=== PATIENT | male | born 1980 | race Two or more races ===

== ENCOUNTER 2018-08-20 12:02 | Inpatient (IN) | payer OTHER ==
[~2018-08-20] VITALS: Ht 167.6 cm; Wt 86.2 kg
[2018-08-20] MEDS ORDERED: OLANZAPINE ODT20 MG PO (12:16)
[2018-08-20] MEDS ORDERED: SAPHRIS10 MG SL (12:16)
[2018-08-20] MEDS ORDERED: CITALOPRAM HBR10 M1 ORAL (12:16)
[2018-08-20 12:43] VITALS: BP 144/80
[2018-08-20] MEDS ORDERED: LORazepam Inj 2mg/ml 1ml IV ONE (13:00)
[2018-08-20 13:19] LABS: ANION GAP 13 mmol/L (5-15); BLOOD UREA NITROGEN 6 mg/dL (7-18); CALCIUM 8.7 MG/DL (8.5-10.1); CARBON DIOXIDE 23 MMOL/L (21-32); CHLORIDE 87 MMOL/L (98-107); CREATININE 0.6 MG/DL (0.55-1.30); POTASSIUM 2.9 MMOL/L (3.5-5.1); SODIUM 122 MMOL/L (136-145)
[2018-08-20 13:20] LABS: HEMOGLOBIN 11.9 G/DL (14.2-18.0); MEAN CORPUSCULAR VOLUME 84 FL (80-99); PLATELET COUNT 439 K/UL (150-450); RED BLOOD COUNT 3.91 M/UL (4.70-6.10); RED CELL DISTRIBUTION WIDTH 10.5 % (11.6-14.8); WHITE BLOOD COUNT 17.3 K/UL (4.8-10.8)
[2018-08-20 13:33] LABS: ALANINE AMINOTRANSFERASE 25 U/L (12-78); ALBUMIN 3.5 G/DL (3.4-5.0); ALKALINE PHOSPHATASE 88 U/L (46-116); ASPARTATE AMINO TRANSFERASE 18 U/L (15-37); BILIRUBIN,TOTAL 0.4 MG/DL (0.2-1.0); CKMB 1.3 NG/ML (0.0-3.6); CREATINE KINASE 161 U/L (26-308)
[2018-08-20] MEDS ORDERED: cefTRIAXone 1 GM in NS 55 ML IV SCH (14:15)
[2018-08-20] MEDS ORDERED: Ketorolac 30mg Inj IV ONE (14:30)
--- NOTE | 2018-08-20 15:31 | Diagnostic Imaging Report ---
Indication: Chest pain Technique: One view of the chest Comparison: none Findings: Lungs and pleural spaces are clear. Heart size is normal. Band of atelectasis seen in the right midlung Impression: No acute process
--- NOTE | 2018-08-20 16:07 | Emergency Room Report ---
History of Present Illness General Chief Complaint: Behavioral Complaint Source: Medical Record (Viviane Carrillo) Present Illness HPI 38-year-old male presents to the emergency department complaining of "be ing shaky, weak, and feeling as though he is going to ". Patient has history of bipolar and schizoaffective disorder and he is currently taking citalopram, olanzapine and Saphris. Patient states that he just began these medications last month. He also reports that he has had some diarrhea and reports having dysuria for almost 2 years. Patient states that he had unprotected intercourse with a prostitute some 2 years ago and has had his symptoms ever since. He denies penile discharge or blood in the urine. Patient reports recently having a cough as well he states he is having 7 out of 10 in severity right sided chest pain. He denies shortness of breath. pt. denies recent travel or fevers.Pt. denies SI/HI, or hallucinations. (Viviane Carrillo) Allergies: Coded Allergies: No Known Allergies (Unverified , 08/20/18) Patient History Past Medical History: see triage record, psych hx - schizoaffective, bipolar Past Surgical History: none Pertinent Family History: none Reviewed Nursing Documentation: PMH: Agreed; PSxH: Agreed (Viviane Carrillo) Nursing Documentation-PMH Past Medical History: No History, Except For History Of Psychiatric Problem: Yes (Viviane Carrillo) Review of Systems All Other Systems: limited - Pt. initially is very focused on not feeling well. (Viviane Carrillo) Physical Exam Vital Signs Date Time Temp Pulse Resp B/P (MAP) Pulse Ox O2 Delivery O2 Flow Rate FiO2 08/20/18 12:12 98.2 105 18 145/81 97 Room Air Sp02 EP Interpretation: reviewed, normal General Appearance: alert, GCS 15, non-toxic, moderate distress Head: normocephalic, atraumatic Eyes: bilateral eye normal inspection, bilateral eye PERRL ENT: hearing grossly normal, normal voice Neck: full range of motion, no bony tend Respiratory: chest non-tender, lungs clear, normal breath sounds, no respiratory distress, no accessory muscle use, no wheezing, speaking full sentences Cardiovascular #1: regular rate, rhythm, no edema, normal capillary refill Gastrointestinal: normal bowel sounds, non tender, soft Musculoskeletal: back normal, gait/station normal, normal range of motion, non- tender Neurologic: alert, oriented x3, responsive, motor strength/tone normal, DTRs symmetric - hyperreflexic, sensory intact, normal gait - Pt. unsteady gait, and collapsed due to weakness , speech normal, grossly normal Psychiatric: judgement/insight normal, no suicidal/homicidal ideation, anxious - pt. moderately anxious Skin: normal color, no rash, well hydrated, diaphoresis (Viviane Carrillo) Medical Decision Making PA Attestation Dr. Leal is my supervising Physician whom patient management has been discussed with. (Viviane Carrillo) Diagnostic Impression: Primary Impression: Hyponatremia Additional Impression: Weakness generalized ER Course 38-year-old male presents to the emergency department complaining of "be ing shaky, weak, and feeling as though he is going to ". Patient has history of bipolar and schizoaffective disorder and he is currently taking citalopram, olanzapine and Saphris. Patient states that he just began these medications last month. He also reports that he has had some diarrhea and reports having dysuria for almost 2 years. Patient states that he had unprotected intercourse with a prostitute some 2 years ago and has had his symptoms ever since. He denies penile discharge or blood in the urine. Patient reports recently having a cough as well he states he is having 7 out of 10 in severity right sided chest pain. He denies shortness of breath. pt. denies recent travel or fevers.Pt. denies SI/HI, or hallucinations. Ddx considered but are not limited to [place], pneumonia, contusion, costochondritis , PE, ACS,EPS, NMS, Shoulder strain, Chest wall contusion. aortic dissection. Vital signs: are WNL, pt. is afebrile H&PE are most consistent with Pt. has hyperreflexia on exam, is diaphoretic, restless ( akanthesia ) and tardrive dyskinesia. ORDERS: - EKG: sinus Tachycardia 121 bpm. -CBC: leukocytosis 17.9 -CMP: hyponatremia and hypokalemia -Urine Sodium: 77 osmolality : 57 -CK & CKMB WNL -Troponin:0.01 CXR: right fissure noted. -Lactic Acid: WNL -Blood cultures: Pending ED INTERVENTIONS: - PT. placed on cardiac monitoring. -1mg Ativan PO - Toradol 20mg IV -10mEq KCL IV x2 ( Dr. Leal wants 3x 10mEq delivered). -IV Rocephin -IV Levaquin DISPOSITION: at this time pt. will be admitted to Dr. Greene for hyponatremia. Dr. Greene agreed to admit the pt. and to continue pt. care management. Labs Test 08/20/18 12:55 08/20/18 13:20 08/20/18 15:25 White Blood Count 17.3 K/UL (4.8-10.8) Red Blood Count 3.91 M/UL (4.70-6.10) Hemoglobin 11.9 G/DL (14.2-18.0) Hematocrit 33.0 % (42.0-52.0) Mean Corpuscular Volume 84 FL (80-99) Mean Corpuscular Hemoglobin 30.4 PG (27.0-31.0) Mean Corpuscular Hemoglobin Concent 36.1 G/DL (32.0-36.0) Red Cell Distribution Width 10.5 % (11.6-14.8) Platelet Count 439 K/UL (150-450) Mean Platelet Volume 5.5 FL (6.5-10.1) Neutrophils (%) (Auto) % (45.0-75.0) Lymphocytes (%) (Auto) % (20.0-45.0) Monocytes (%) (Auto) % (1.0-10.0) Eosinophils (%) (Auto) % (0.0-3.0) Basophils (%) (Auto) % (0.0-2.0) Differential Total Cells Counted 100 Neutrophils % (Manual) 87 % (45-75) Lymphocytes % (Manual) 6 % (20-45) Monocytes % (Manual) 7 % (1-10) Eosinophils % (Manual) 0 % (0-3) Basophils % (Manual) 0 % (0-2) Band Neutrophils 0 % (0-8) Platelet Estimate Adequate Platelet Morphology Normal Sodium Level 122 MMOL/L (136-145) Potassium Level 2.9 MMOL/L (3.5-5.1) Chloride Level 87 MMOL/L (98-107) Carbon Dioxide Level 23 MMOL/L (21-32) Anion Gap 13 mmol/L (5-15) Blood Urea Nitrogen 6 mg/dL (7-18) Creatinine 0.6 MG/DL (0.55-1.30) Estimat Glomerular Filtration Rate > 60 mL/min (>60) Glucose Level 123 MG/DL (74-106) Calcium Level 8.7 MG/DL (8.5-10.1) Total Bilirubin 0.4 MG/DL (0.2-1.0) Aspartate Amino Transf (AST/SGOT) 18 U/L (15-37) Alanine Aminotransferase (ALT/SGPT) 25 U/L (12-78) Alkaline Phosphatase 88 U/L (46-116) Total Creatine Kinase 161 U/L (26-308) Creatine Kinase MB 1.3 NG/ML (0.0-3.6) Creatine Kinase MB Relative Index 0.8 Troponin I 0.017 ng/mL (0.000-0.056) Total Protein 7.0 G/DL (6.4-8.2) Albumin 3.5 G/DL (3.4-5.0) Globulin 3.5 g/dL Albumin/Globulin Ratio 1.0 (1.0-2.7) Salicylates Level 1.3 ug/mL (2.8-20) Acetaminophen Level < 2 MCG/ML (10-30) Serum Alcohol < 3 mg/dL Urine Random Sodium 77 mmol/L (20-110) Urine Opiates Screen Negative (NEGATIVE) Urine Barbiturates Screen Negative (NEGATIVE) Phencyclidine (PCP) Screen Negative (NEGATIVE) Urine Amphetamines Screen Negative (NEGATIVE) Urine Benzodiazepines Screen Negative (NEGATIVE) Urine Cocaine Screen Negative (NEGATIVE) Urine Marijuana (THC) Screen Negative (NEGATIVE) (Viviane Carrillo) ER Course Patient examined by me. I agree with treatment plan and admission. (Zacarias Leal MD) EKG Diagnostic Results EP Interpretation: Dr. Leal Rate: tachycardiac - 121 bpm Rhythm: NSR ST Segments: no acute changes ASA given to the pt in ED: No PA Scribe Text This Interpretation was scribed by MATEO Carrillo. (Viviane Carrillo) Chest X-Ray Diagnostic Results Chest X-Ray Diagnostic Results : Chest X-Ray Ordered: Yes # of Views/Limited/Complete: 1 View Indication: Chest Pain EP Interpretation: Yes PA Xray: Interpretation reviewed, by supervising MD - Dr. Leal, and agrees with findings. Interpretation: no effusion, no pneumothorax, other - Right lower lobe fissure present may be indicative of PNA/ vs. atelectasis. Impression: Other - abnormal Electronically Signed by: Viviane Carrillo PA-C (Viviane Carrillo) Chest X-Ray Diagnostic Results : Electronically Signed by: Lashon documentation reviewed by me and is accurate, Zacarias Leal MD. (Zacarias Leal MD) Last Vital Signs Date Time Temp Pulse Resp B/P (MAP) Pulse Ox O2 Delivery O2 Flow Rate FiO2 08/20/18 12:54 115 18 Room Air 08/20/18 12:43 97.9 144/80 94 (Viviane Carrillo) Disposition: ADMITTED INPATIENT Condition: Serious Referrals: NON PHYSICIAN (PCP) Patient Instructions: Smoking Cessation, Tips for Success, [id number], Hyponatremia, [id number] Viviane Carrillo Aug 20, 2018 16:07 Zacarias Leal MD Aug 26, 2018 06:12
[2018-08-20] MEDS ORDERED: Tylenol #3 tab (300mg/30mg) ORAL PRN (16:45)
[2018-08-20] MEDS ORDERED: LORazepam Inj 2mg/ml 1ml IV PRN (16:45)
[2018-08-20] MEDS: Docusate 100mg cap ORAL SCH (17:45)
[2018-08-20] MEDS: Azithromycin 500 MG in D5W 275 ML IV SCH (18:16)
[2018-08-20 20:00] VITALS: BP 98/58
[2018-08-20] MEDS: ZyPREXA Zydis 10mg tab ORAL SCH ×2 (21:00→21:10)
[2018-08-20] MEDS: Heparin 5000 units/ml inj SUBQ SCH (21:15)
--- NOTE | 2018-08-20 22:00 | Consultation ---
Consult Note Assessment/Plan Nephrology consult dictated #[id number] Paolo Castaneda MD Aug 20, 2018 22:00
--- NOTE | 2018-08-20 22:10 | History and Physical ---
History of Present Illness General Reason for Hospitalization: Behavioral Complaint Present Illness Allergies: Coded Allergies: No Known Allergies (Unverified , 08/20/18) Medication History Scheduled Asenapine Maleate (Saphris), 10 MG SL BID, (Reported) Citalopram Hydrobromide* (Citalopram Hbr*), 30 MG ORAL DAILY, (Reported) Olanzapine (Olanzapine Odt), 20 MG PO BID, (Reported) Patient History Healthcare decision maker Resuscitation status Full Code Advanced Directive on File Physical Exam General Appearance: WD/WN Last 24 Hour Vital Signs Date Time Temp Pulse Resp B/P (MAP) Pulse Ox O2 Delivery O2 Flow Rate FiO2 08/20/18 16:01 97.9 115 18 124/70 94 Room Air 08/20/18 16:00 105 08/20/18 16:00 Room Air 08/20/18 12:54 115 18 Room Air 08/20/18 12:43 97.9 115 18 144/80 94 Room Air 08/20/18 12:12 98.2 105 18 145/81 97 Room Air Laboratory Tests Test 08/20/18 12:55 08/20/18 13:20 08/20/18 15:25 08/20/18 17:02 White Blood Count 17.3 K/UL (4.8-10.8) H Red Blood Count 3.91 M/UL (4.70-6.10) L Hemoglobin 11.9 G/DL (14.2-18.0) L Hematocrit 33.0 % (42.0-52.0) L Mean Corpuscular Volume 84 FL (80-99) Mean Corpuscular Hemoglobin 30.4 PG (27.0-31.0) Mean Corpuscular Hemoglobin Concent 36.1 G/DL (32.0-36.0) H Red Cell Distribution Width 10.5 % (11.6-14.8) L Platelet Count 439 K/UL (150-450) Mean Platelet Volume 5.5 FL (6.5-10.1) L Neutrophils (%) (Auto) % (45.0-75.0) Lymphocytes (%) (Auto) % (20.0-45.0) Monocytes (%) (Auto) % (1.0-10.0) Eosinophils (%) (Auto) % (0.0-3.0) Basophils (%) (Auto) % (0.0-2.0) Differential Total Cells Counted 100 Neutrophils % (Manual) 87 % (45-75) H Lymphocytes % (Manual) 6 % (20-45) L Monocytes % (Manual) 7 % (1-10) Eosinophils % (Manual) 0 % (0-3) Basophils % (Manual) 0 % (0-2) Band Neutrophils 0 % (0-8) Platelet Estimate Adequate Platelet Morphology Normal Sodium Level 122 MMOL/L (136-145) L Potassium Level 2.9 MMOL/L (3.5-5.1) L Chloride Level 87 MMOL/L (98-107) L Carbon Dioxide Level 23 MMOL/L (21-32) Anion Gap 13 mmol/L (5-15) Blood Urea Nitrogen 6 mg/dL (7-18) L Creatinine 0.6 MG/DL (0.55-1.30) Estimat Glomerular Filtration Rate > 60 mL/min (>60) Glucose Level 123 MG/DL (74-106) H Osmolality 249 mOsm/kg (297-317) L Uric Acid 4.1 MG/DL (2.6-7.2) Calcium Level 8.7 MG/DL (8.5-10.1) Total Bilirubin 0.4 MG/DL (0.2-1.0) Aspartate Amino Transf (AST/SGOT) 18 U/L (15-37) Alanine Aminotransferase (ALT/SGPT) 25 U/L (12-78) Alkaline Phosphatase 88 U/L (46-116) Total Creatine Kinase 161 U/L (26-308) Creatine Kinase MB 1.3 NG/ML (0.0-3.6) Creatine Kinase MB Relative Index 0.8 Troponin I 0.017 ng/mL (0.000-0.056) Total Protein 7.0 G/DL (6.4-8.2) Albumin 3.5 G/DL (3.4-5.0) Globulin 3.5 g/dL Albumin/Globulin Ratio 1.0 (1.0-2.7) Salicylates Level 1.3 ug/mL (2.8-20) L Acetaminophen Level < 2 MCG/ML (10-30) L Serum Alcohol < 3 mg/dL Urine Random Sodium 77 mmol/L (20-110) Urine Opiates Screen Negative (NEGATIVE) Urine Barbiturates Screen Negative (NEGATIVE) Phencyclidine (PCP) Screen Negative (NEGATIVE) Urine Amphetamines Screen Negative (NEGATIVE) Urine Benzodiazepines Screen Negative (NEGATIVE) Urine Cocaine Screen Negative (NEGATIVE) Urine Marijuana (THC) Screen Negative (NEGATIVE) Lactic Acid Level 1.70 mmol/L (0.4-2.0) Urine Osmolality 57 mOsm/kg (429-449) L Height (Feet): 5 Height (Inches): 6.00 Weight (Pounds): 190 Medications Current Medications Medications (Trade) Dose Ordered Sig/Yohannes Route PRN Reason Start Time Stop Time Status Last Admin Dose Admin Acetaminophen (Tylenol) 650 mg Q6H PRN ORAL Mild Pain/Temp > 100.5 08/20/18 16:45 09/19/18 16:44 Acetaminophen/ Codeine Phosphate (Tylenol #3) 1 tab Q6H PRN ORAL Pain Scale (6-10) 08/20/18 16:45 08/27/18 16:44 Azithromycin 500 mg/Dextrose 275 ml @ 275 mls/hr Q24HRS IV 08/20/18 18:00 08/26/18 18:59 08/20/18 18:16 Ceftriaxone Sodium 1 gm/ Dextrose 55 ml @ 110 mls/hr Q24H IVPB 08/21/18 14:00 08/28/18 13:59 Citalopram Hydrobromide (celeXA) 30 mg DAILY ORAL 08/21/18 09:00 09/20/18 08:59 Docusate Sodium (Colace) 100 mg TWICE A DAY ORAL 08/20/18 18:00 09/19/18 17:59 08/20/18 17:45 Heparin Sodium (Porcine) (Heparin 5000 units/ml) 5,000 units EVERY 12 HOURS SUBQ 08/20/18 21:00 09/19/18 20:59 08/20/18 21:15 Levofloxacin 150 ml @ 150 mls/hr Q24H IV 08/20/18 14:15 08/20/18 23:59 08/20/18 14:35 Lorazepam (Ativan 2mg/ml 1ml) 0.5 mg Q4H PRN IV For Anxiety 08/20/18 16:45 08/27/18 16:44 Non-Formulary Medication (Non-Formulary Med) 1 ea DAILY ORAL 08/21/18 09:00 11/26/18 08:59 UNV Olanzapine (ZyPREXA Zydis) 20 mg Q12HR ORAL 08/20/18 21:00 09/19/18 20:59 Ondansetron HCl (Zofran) 4 mg Q8H PRN IVP Nausea & Vomiting 08/20/18 17:00 09/19/18 16:59 Sodium Chloride 1,000 ml @ 75 mls/hr [id number] IV 08/20/18 17:30 09/19/18 17:29 08/20/18 17:25 Assessment/Plan Status Narrative HPI 38-year-old male presents to the emergency department complaining of "be ing shaky, weak, and feeling as though he is going to ". Patient has history of bipolar and schizoaffective disorder and he is currently taking citalopram, olanzapine and Saphris. Patient states that he just began these medications last month. He also reports that he has had some diarrhea and reports having dysuria for almost 2 years. Patient states that he had unprotected intercourse with a prostitute some 2 years ago and has had his symptoms ever since. He denies penile discharge or blood in the urine. Patient reports recently having a cough as well he states he is having 7 out of 10 in severity right sided chest pain. He denies shortness of breath. pt. denies recent travel or fevers.Pt. denies SI/HI, or hallucinations. Allergies: Coded Allergies: No Known Allergies (Unverified , 08/20/18) Nursing Documentation-[facility] Past Medical History: No History, Except For History Of Psychiatric Problem: Yes Physical Exam Vital Signs Date Time Temp Pulse Resp B/P (MAP) Pulse Ox O2 Delivery O2 Flow Rate FiO2 08/20/18 12:12 98.2 105 18 145/81 97 Room Air Medical Decision Making PA Attestation Dr. Leal is my supervising Physician whom patient management has been discussed with. Diagnostic Impression: Primary Impression: Hyponatremia ER Course 38-year-old male presents to the emergency department complaining of "be ing shaky, weak, and feeling as though he is going to ". Patient has history of bipolar and schizoaffective disorder and he is currently taking citalopram, olanzapine and Saphris. Patient states that he just began these medications last month. He also reports that he has had some diarrhea and reports having dysuria for almost 2 years. Patient states that he had unprotected intercourse with a prostitute some 2 years ago and has had his symptoms ever since. He denies penile discharge or blood in the urine. Patient reports recently having a cough as well he states he is having 7 out of 10 in severity right sided chest pain. He denies shortness of breath. pt. denies recent travel or fevers.Pt. denies SI/HI, or hallucinations. Pt. presents to the ED c/o [ ] Ddx considered but are not limited to [place], pneumonia, contusion, costochondritis , PE, ACS, Shoulder strain, Chest wall contusion. aortic dissection. Vital signs: are WNL, pt. is afebrile H&PE are most consistent with Pt. has hyperreflexia on exam, is diaphoretic, restless ( akanthesia ) and tardrive dyskinesia. ORDERS: - EKG: -CBC: leukocytosis 17.9 -CMP: hyponatremia and hypokalemia -Urine Sodium: -CK: -Troponin: CXR: -Lactic Acid -Blood cultures: Pending Labs Test 08/20/18 12:55 08/20/18 13:20 08/20/18 15:25 White Blood Count 17.3 K/UL (4.8-10.8) Red Blood Count 3.91 M/UL (4.70-6.10) Hemoglobin 11.9 G/DL (14.2-18.0) Hematocrit 33.0 % (42.0-52.0) Mean Corpuscular Volume 84 FL (80-99) Mean Corpuscular Hemoglobin 30.4 PG (27.0-31.0) Mean Corpuscular Hemoglobin Concent 36.1 G/DL (32.0-36.0) Red Cell Distribution Width 10.5 % (11.6-14.8) Platelet Count 439 K/UL (150-450) Mean Platelet Volume 5.5 FL (6.5-10.1) Neutrophils (%) (Auto) % (45.0-75.0) Lymphocytes (%) (Auto) % (20.0-45.0) Monocytes (%) (Auto) % (1.0-10.0) Eosinophils (%) (Auto) % (0.0-3.0) Basophils (%) (Auto) % (0.0-2.0) Differential Total Cells Counted 100 Neutrophils % (Manual) 87 % (45-75) Lymphocytes % (Manual) 6 % (20-45) Monocytes % (Manual) 7 % (1-10) Eosinophils % (Manual) 0 % (0-3) Basophils % (Manual) 0 % (0-2) Band Neutrophils 0 % (0-8) Platelet Estimate Adequate Platelet Morphology Normal Sodium Level 122 MMOL/L (136-145) Potassium Level 2.9 MMOL/L (3.5-5.1) Chloride Level 87 MMOL/L (98-107) Carbon Dioxide Level 23 MMOL/L (21-32) Anion Gap 13 mmol/L (5-15) Blood Urea Nitrogen 6 mg/dL (7-18) Creatinine 0.6 MG/DL (0.55-1.30) Estimat Glomerular Filtration Rate > 60 mL/min (>60) Glucose Level 123 MG/DL (74-106) Calcium Level 8.7 MG/DL (8.5-10.1) Total Bilirubin 0.4 MG/DL (0.2-1.0) Aspartate Amino Transf (AST/SGOT) 18 U/L (15-37) Alanine Aminotransferase (ALT/SGPT) 25 U/L (12-78) Alkaline Phosphatase 88 U/L (46-116) Total Creatine Kinase 161 U/L (26-308) Creatine Kinase MB 1.3 NG/ML (0.0-3.6) Creatine Kinase MB Relative Index 0.8 Troponin I 0.017 ng/mL (0.000-0.056) Total Protein 7.0 G/DL (6.4-8.2) Albumin 3.5 G/DL (3.4-5.0) Globulin 3.5 g/dL Albumin/Globulin Ratio 1.0 (1.0-2.7) Salicylates Level 1.3 ug/mL (2.8-20) Acetaminophen Level < 2 MCG/ML (10-30) Serum Alcohol < 3 mg/dL Urine Random Sodium 77 mmol/L (20-110) Urine Opiates Screen Negative (NEGATIVE) Urine Barbiturates Screen Negative (NEGATIVE) Phencyclidine (PCP) Screen Negative (NEGATIVE) Urine Amphetamines Screen Negative (NEGATIVE) Urine Benzodiazepines Screen Negative (NEGATIVE) Urine Cocaine Screen Negative (NEGATIVE) Urine Marijuana (THC) Screen Negative (NEGATIVE) Assessment/Plan Admit inpatient Renal Consult IV Saline Fluid restrict [employer] meds PPX PRN Zacarias Cruz MD Aug 20, 2018 22:10
[2018-08-21] VITALS: BP 98/57
--- NOTE | 2018-08-21 00:15 | Consultation ---
DATE OF CONSULTATION: 08/20/2018 Nephrology Consult CONSULTING PHYSICIAN: Paolo Castaneda M.D. REFERRING PHYSICIAN: Dr. Dilshad Greene. REASON FOR CONSULT: Hyponatremia. HISTORY OF PRESENT ILLNESS: This is a very pleasant 38-year-old male, who has been brought to the emergency room of [facility] and has been admitted with a complaint of being shaky, weak, feeling that he is going to , was found to have serum sodium of 122. Apparently, he has a history of bipolar and schizoaffective disorder for which he is on antipsychotic medications. He has had some diarrhea recently. He has been started on normal saline at 75 mL/hour. By the time I am seeing him, he is very lethargic. However, he is able to be aroused and answer some of the questions. His serum osmolality was 249 and urine osmolality was 57. Urine sodium was 77 and serum uric acid was 4.1. He does not seem to be in any distress. PAST MEDICAL HISTORY: Significant for psychiatric disorder mainly bipolar as well as schizoaffective disorder. PAST SURGICAL HISTORY: Unknown. I am not able to get a fruitful history out of him. SOCIAL HISTORY: He is not able to give me a very fruitful history. FAMILY HISTORY: Unknown. MEDICATIONS: Saphris 10 mg sublingual twice a day, citalopram 30 mg p.o. daily, and olanzapine 20 mg p.o. b.i.d. REVIEW OF SYSTEMS: Not able to be performed since he is not able to give me a very fruitful history. He is very lethargic at this point. PHYSICAL EXAMINATION: VITAL SIGNS: Blood pressure is 145/81, pulse of 105, respiration 18, and temperature 98.2. HEENT: Head is atraumatic. Eyes, pupils reactive to light. No evidence of papilledema. Ears, canals are clear. Tympanic membranes are intact. Nose, nares are patent without any nasal discharge. Throat without inflammation or exudate. NECK: Supple. Jugular venous distention is somewhat low. No cervical adenopathy. No thyromegaly. HEART: Regular rhythm, tachycardic. LUNGS: Clear to auscultation. ABDOMEN: Supple. Bowel sounds positive. No hepatosplenomegaly. EXTREMITIES: Lower extremity shows no cyanosis or clubbing. No pedal edema. NEUROLOGICAL: He is very lethargic. He is moving all 4 extremities. Does not seem to have any focal neurological deficits present. LABORATORY DATA: WBC of 17.3, hemoglobin is 11.9, hematocrit 33, platelets 439, 87% neutrophils, and 6% lymphocytes. Sodium is 122, potassium 2.9, chloride 87, carbon dioxide 23, BUN is 6, and creatinine 0.6. IMPRESSION: 1. 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 2. Hypokalemia. 3. Psychiatric disorder. Some antipsychotic medications causing some ____ and decreasing his threshold ____ hyponatremia. 4. No signs of fluid overload. 5. He has leukocytosis with some questionable underlying sepsis of questionable etiology. PLAN: He has been started on normal saline, which I agree ____ to have his free water limited to less than a liter a day. Replete the potassium. I agree with IV antibiotics empirically and we will recheck the serum sodium serially. Paolo Castaneda M.D. DR: ROMARIO JOB#: [id number] CC:
[2018-08-21 01:06] LABS: BILIRUBIN, URINE NEGATIVE (NEGATIVE); COLOR,URINE PALE YELLOW; GLUCOSE, URINE (UA) NEGATIVE (NEGATIVE); KETONES,URINE NEGATIVE (NEGATIVE); LEUKOCYTE ESTERASE ,URINE NEGATIVE (NEGATIVE); NITRITE,URINE NEGATIVE (NEGATIVE); PH,URINE 7 (4.5-8.0); PROTEIN,URINE NEGATIVE (NEGATIVE); UROBILINOGEN,URINE NORMAL MG/DL (0.0-1.0)
[2018-08-21 01:07] LABS: APPEARANCE,URINE CLEAR
[2018-08-21 04:00] VITALS: BP 92/53
[2018-08-21 08:00] VITALS: BP 103/62
[2018-08-21 08:27] LABS: BASOPHILS % (AUTO) 1.1 % (0.0-2.0); EOSINOPHILS % (AUTO) 0.5 % (0.0-3.0); HEMATOCRIT 36.6 % (42.0-52.0); HEMOGLOBIN 12.7 G/DL (14.2-18.0); LYMPHOCYTES % (AUTO) 32.2 % (20.0-45.0); MEAN CORPUSCULAR VOLUME 85 FL (80-99); MONOCYTES % (AUTO) 8.1 % (1.0-10.0); NEUTROPHILS % (AUTO) 58.1 % (45.0-75.0); PLATELET COUNT 489 K/UL (150-450); RED CELL DISTRIBUTION WIDTH 10.7 % (11.6-14.8); WHITE BLOOD COUNT 4.3 K/UL (4.8-10.8)
[2018-08-21] MEDS: ZyPREXA Zydis 10mg tab ORAL SCH ×2 (08:57→21:23)
[2018-08-21] MEDS: Citalopram Hydrobromide 10mg Tab ORAL SCH (08:58)
[2018-08-21] MEDS: Docusate 100mg cap ORAL SCH ×2 (08:58→17:06)
[2018-08-21] MEDS: Heparin 5000 units/ml inj SUBQ SCH ×2 (08:59→21:22)
[2018-08-21 09:26] LABS: ALANINE AMINOTRANSFERASE 23 U/L (12-78); ALBUMIN 3.1 G/DL (3.4-5.0); ALBUMIN/GLOBULIN RATIO 0.9 (1.0-2.7); ALKALINE PHOSPHATASE 85 U/L (46-116); ANION GAP 10 mmol/L (5-15); ASPARTATE AMINO TRANSFERASE 16 U/L (15-37); BILIRUBIN,TOTAL 0.4 MG/DL (0.2-1.0); BLOOD UREA NITROGEN 6 mg/dL (7-18); CALCIUM 8.9 MG/DL (8.5-10.1); CARBON DIOXIDE 25 MMOL/L (21-32); CHLORIDE 108 MMOL/L (98-107); CREATININE 0.7 MG/DL (0.55-1.30); POTASSIUM 3.7 MMOL/L (3.5-5.1); SODIUM 143 MMOL/L (136-145)
[2018-08-21 12:00] VITALS: BP 94/54
[2018-08-21] MEDS: cefTRIAXone 1 GM in D5W 55 ML IVPB SCH (14:05)
[2018-08-21] MEDS ORDERED: Vancomycin 1.5gm/D5W 250ml 250 ML IVPB SCH (14:45)
[2018-08-21] MEDS ORDERED: Tubing IV Secondary IV ONE (15:10)
[2018-08-21 16:00] VITALS: BP 116/69
[2018-08-21] MEDS: Azithromycin 500 MG in D5W 275 ML IV SCH (17:08)
--- NOTE | 2018-08-21 17:44 | Pulmonology Progress Note ---
Assessment/Plan Assessment/Plan PULMONARY PROGRESS NOTE Reason for Hospitalization: Behavioral Complaint Present Illness Allergies: Coded Allergies: No Known Allergies (Unverified , 08/20/18) Medication History Scheduled Asenapine Maleate (Saphris), 10 MG SL BID, (Reported) Citalopram Hydrobromide* (Citalopram Hbr*), 30 MG ORAL DAILY, (Reported) Olanzapine (Olanzapine Odt), 20 MG PO BID, (Reported) Patient History Healthcare decision maker Resuscitation status Full Code Advanced Directive on File Physical Exam General Appearance: WD/WN Last 24 Hour Vital Signs Date Time Temp Pulse Resp B/P (MAP) Pulse Ox O2 Delivery O2 Flow Rate FiO2 08/20/18 16:01 97.9 115 18 124/70 94 Room Air 08/20/18 16:00 105 08/20/18 16:00 Room Air 08/20/18 12:54 115 18 Room Air 08/20/18 12:43 97.9 115 18 144/80 94 Room Air 08/20/18 12:12 98.2 105 18 145/81 97 Room Air Laboratory Tests Test 08/20/18 12:55 08/20/18 13:20 08/20/18 15:25 08/20/18 17:02 White Blood Count 17.3 K/UL (4.8-10.8) H Red Blood Count 3.91 M/UL (4.70-6.10) L Hemoglobin 11.9 G/DL (14.2-18.0) L Hematocrit 33.0 % (42.0-52.0) L Mean Corpuscular Volume 84 FL (80-99) Mean Corpuscular Hemoglobin 30.4 PG (27.0-31.0) Mean Corpuscular Hemoglobin Concent 36.1 G/DL (32.0-36.0) H Red Cell Distribution Width 10.5 % (11.6-14.8) L Platelet Count 439 K/UL (150-450) Mean Platelet Volume 5.5 FL (6.5-10.1) L Neutrophils (%) (Auto) % (45.0-75.0) Lymphocytes (%) (Auto) % (20.0-45.0) Monocytes (%) (Auto) % (1.0-10.0) Eosinophils (%) (Auto) % (0.0-3.0) Basophils (%) (Auto) % (0.0-2.0) Differential Total Cells Counted 100 Neutrophils % (Manual) 87 % (45-75) H Lymphocytes % (Manual) 6 % (20-45) L Monocytes % (Manual) 7 % (1-10) Eosinophils % (Manual) 0 % (0-3) Basophils % (Manual) 0 % (0-2) Band Neutrophils 0 % (0-8) Platelet Estimate Adequate Platelet Morphology Normal Sodium Level 122 MMOL/L (136-145) L Potassium Level 2.9 MMOL/L (3.5-5.1) L Chloride Level 87 MMOL/L (98-107) L Carbon Dioxide Level 23 MMOL/L (21-32) Anion Gap 13 mmol/L (5-15) Blood Urea Nitrogen 6 mg/dL (7-18) L Creatinine 0.6 MG/DL (0.55-1.30) Estimat Glomerular Filtration Rate > 60 mL/min (>60) Glucose Level 123 MG/DL (74-106) H Osmolality 249 mOsm/kg (297-317) L Uric Acid 4.1 MG/DL (2.6-7.2) Calcium Level 8.7 MG/DL (8.5-10.1) Total Bilirubin 0.4 MG/DL (0.2-1.0) Aspartate Amino Transf (AST/SGOT) 18 U/L (15-37) Alanine Aminotransferase (ALT/SGPT) 25 U/L (12-78) Alkaline Phosphatase 88 U/L (46-116) Total Creatine Kinase 161 U/L (26-308) Creatine Kinase MB 1.3 NG/ML (0.0-3.6) Creatine Kinase MB Relative Index 0.8 Troponin I 0.017 ng/mL (0.000-0.056) Total Protein 7.0 G/DL (6.4-8.2) Albumin 3.5 G/DL (3.4-5.0) Globulin 3.5 g/dL Albumin/Globulin Ratio 1.0 (1.0-2.7) Salicylates Level 1.3 ug/mL (2.8-20) L Acetaminophen Level < 2 MCG/ML (10-30) L Serum Alcohol < 3 mg/dL Urine Random Sodium 77 mmol/L (20-110) Urine Opiates Screen Negative (NEGATIVE) Urine Barbiturates Screen Negative (NEGATIVE) Phencyclidine (PCP) Screen Negative (NEGATIVE) Urine Amphetamines Screen Negative (NEGATIVE) Urine Benzodiazepines Screen Negative (NEGATIVE) Urine Cocaine Screen Negative (NEGATIVE) Urine Marijuana (THC) Screen Negative (NEGATIVE) Lactic Acid Level 1.70 mmol/L (0.4-2.0) Urine Osmolality 57 mOsm/kg (429-449) L Height (Feet): 5 Height (Inches): 6.00 Weight (Pounds): 190 Medications Current Medications Medications (Trade) Dose Ordered Sig/Yohannes Route PRN Reason Start Time Stop Time Status Last Admin Dose Admin Acetaminophen (Tylenol) 650 mg Q6H PRN ORAL Mild Pain/Temp > 100.5 08/20/18 16:45 09/19/18 16:44 Acetaminophen/ Codeine Phosphate (Tylenol #3) 1 tab Q6H PRN ORAL Pain Scale (6-10) 08/20/18 16:45 08/27/18 16:44 Azithromycin 500 mg/Dextrose 275 ml @ 275 mls/hr Q24HRS IV 08/20/18 18:00 08/26/18 18:59 08/20/18 18:16 Ceftriaxone Sodium 1 gm/ Dextrose 55 ml @ 110 mls/hr Q24H IVPB 08/21/18 14:00 08/28/18 13:59 Citalopram Hydrobromide (celeXA) 30 mg DAILY ORAL 08/21/18 09:00 09/20/18 08:59 Docusate Sodium (Colace) 100 mg TWICE A DAY ORAL 08/20/18 18:00 09/19/18 17:59 08/20/18 17:45 Heparin Sodium (Porcine) (Heparin 5000 units/ml) 5,000 units EVERY 12 HOURS SUBQ 08/20/18 21:00 09/19/18 20:59 08/20/18 21:15 Levofloxacin 150 ml @ 150 mls/hr Q24H IV 08/20/18 14:15 08/20/18 23:59 08/20/18 14:35 Lorazepam (Ativan 2mg/ml 1ml) 0.5 mg Q4H PRN IV For Anxiety 08/20/18 16:45 08/27/18 16:44 Non-Formulary Medication (Non-Formulary Med) 1 ea DAILY ORAL 08/21/18 09:00 09/20/18 08:59 UNV Olanzapine (ZyPREXA Zydis) 20 mg Q12HR ORAL 08/20/18 21:00 09/19/18 20:59 Ondansetron HCl (Zofran) 4 mg Q8H PRN IVP Nausea & Vomiting 08/20/18 17:00 09/19/18 16:59 Sodium Chloride 1,000 ml @ 75 mls/hr [id number] IV 08/20/18 17:30 09/19/18 17:29 08/20/18 17:25 Assessment/Plan Status Narrative HPI 38-year-old male presents to the emergency department complaining of "be ing shaky, weak, and feeling as though he is going to ". Patient has history of bipolar and schizoaffective disorder and he is currently taking citalopram, olanzapine and Saphris. Patient states that he just began these medications last month. He also reports that he has had some diarrhea and reports having dysuria for almost 2 years. Patient states that he had unprotected intercourse with a prostitute some 2 years ago and has had his symptoms ever since. He denies penile discharge or blood in the urine. Patient reports recently having a cough as well he states he is having 7 out of 10 in severity right sided chest pain. He denies shortness of breath. pt. denies recent travel or fevers.Pt. denies SI/HI, or hallucinations. Allergies: Coded Allergies: No Known Allergies (Unverified , 08/20/18) Nursing Documentation-[facility] Past Medical History: No History, Except For History Of Psychiatric Problem: Yes Physical Exam Vital Signs Date Time Temp Pulse Resp B/P (MAP) Pulse Ox O2 Delivery O2 Flow Rate FiO2 08/20/18 12:12 98.2 105 18 145/81 97 Room Air Medical Decision Making PA Attestation Dr. Leal is my supervising Physician whom patient management has been discussed with. Diagnostic Impression: Primary Impression: Hyponatremia ER Course 38-year-old male presents to the emergency department complaining of "be ing shaky, weak, and feeling as though he is going to ". Patient has history of bipolar and schizoaffective disorder and he is currently taking citalopram, olanzapine and Saphris. Patient states that he just began these medications last month. He also reports that he has had some diarrhea and reports having dysuria for almost 2 years. Patient states that he had unprotected intercourse with a prostitute some 2 years ago and has had his symptoms ever since. He denies penile discharge or blood in the urine. Patient reports recently having a cough as well he states he is having 7 out of 10 in severity right sided chest pain. He denies shortness of breath. pt. denies recent travel or fevers.Pt. denies SI/HI, or hallucinations. Pt. presents to the ED c/o [ ] Ddx considered but are not limited to PA, pneumonia, contusion, costochondritis , PE, ACS, Shoulder strain, Chest wall contusion. aortic dissection. Vital signs: are WNL, pt. is afebrile H&PE are most consistent with Pt. has hyperreflexia on exam, is diaphoretic, restless ( akanthesia ) and tardrive dyskinesia. ORDERS: - EKG: -CBC: leukocytosis 17.9 -CMP: hyponatremia and hypokalemia -Urine Sodium: -CK: -Troponin: CXR: -Lactic Acid -Blood cultures: Pending Labs Test 08/20/18 12:55 08/20/18 13:20 08/20/18 15:25 White Blood Count 17.3 K/UL (4.8-10.8) Red Blood Count 3.91 M/UL (4.70-6.10) Hemoglobin 11.9 G/DL (14.2-18.0) Hematocrit 33.0 % (42.0-52.0) Mean Corpuscular Volume 84 FL (80-99) Mean Corpuscular Hemoglobin 30.4 PG (27.0-31.0) Mean Corpuscular Hemoglobin Concent 36.1 G/DL (32.0-36.0) Red Cell Distribution Width 10.5 % (11.6-14.8) Platelet Count 439 K/UL (150-450) Mean Platelet Volume 5.5 FL (6.5-10.1) Neutrophils (%) (Auto) % (45.0-75.0) Lymphocytes (%) (Auto) % (20.0-45.0) Monocytes (%) (Auto) % (1.0-10.0) Eosinophils (%) (Auto) % (0.0-3.0) Basophils (%) (Auto) % (0.0-2.0) Differential Total Cells Counted 100 Neutrophils % (Manual) 87 % (45-75) Lymphocytes % (Manual) 6 % (20-45) Monocytes % (Manual) 7 % (1-10) Eosinophils % (Manual) 0 % (0-3) Basophils % (Manual) 0 % (0-2) Band Neutrophils 0 % (0-8) Platelet Estimate Adequate Platelet Morphology Normal Sodium Level 122 MMOL/L (136-145) Potassium Level 2.9 MMOL/L (3.5-5.1) Chloride Level 87 MMOL/L (98-107) Carbon Dioxide Level 23 MMOL/L (21-32) Anion Gap 13 mmol/L (5-15) Blood Urea Nitrogen 6 mg/dL (7-18) Creatinine 0.6 MG/DL (0.55-1.30) Estimat Glomerular Filtration Rate > 60 mL/min (>60) Glucose Level 123 MG/DL (74-106) Calcium Level 8.7 MG/DL (8.5-10.1) Total Bilirubin 0.4 MG/DL (0.2-1.0) Aspartate Amino Transf (AST/SGOT) 18 U/L (15-37) Alanine Aminotransferase (ALT/SGPT) 25 U/L (12-78) Alkaline Phosphatase 88 U/L (46-116) Total Creatine Kinase 161 U/L (26-308) Creatine Kinase MB 1.3 NG/ML (0.0-3.6) Creatine Kinase MB Relative Index 0.8 Troponin I 0.017 ng/mL (0.000-0.056) Total Protein 7.0 G/DL (6.4-8.2) Albumin 3.5 G/DL (3.4-5.0) Globulin 3.5 g/dL Albumin/Globulin Ratio 1.0 (1.0-2.7) Salicylates Level 1.3 ug/mL (2.8-20) Acetaminophen Level < 2 MCG/ML (10-30) Serum Alcohol < 3 mg/dL Urine Random Sodium 77 mmol/L (20-110) Urine Opiates Screen Negative (NEGATIVE) Urine Barbiturates Screen Negative (NEGATIVE) Phencyclidine (PCP) Screen Negative (NEGATIVE) Urine Amphetamines Screen Negative (NEGATIVE) Urine Benzodiazepines Screen Negative (NEGATIVE) Urine Cocaine Screen Negative (NEGATIVE) Urine Marijuana (THC) Screen Negative (NEGATIVE) Assessment/Plan Admit inpatient Renal Consult DC IV Saline Fluid restrict DIRECTOR INDEPENDENT meds PPX PRN Ativan Subjective ROS Limited/Unobtainable: No Allergies: Coded Allergies: No Known Allergies (Unverified , 08/20/18) Objective Last 24 Hour Vital Signs Date Time Temp Pulse Resp B/P (MAP) Pulse Ox O2 Delivery O2 Flow Rate FiO2 08/21/18 16:00 98.7 77 20 116/69 (85) 97 08/21/18 12:00 99.2 91 21 94/54 (67) 96 08/21/18 12:00 85 08/21/18 09:00 Room Air 08/21/18 08:00 98.4 96 22 103/62 (76) 96 08/21/18 08:00 102 08/21/18 04:00 74 08/21/18 04:00 98.3 78 20 92/53 (66) 95 08/21/18 00:00 73 08/21/18 00:00 98.2 73 20 98/57 (71) 97 08/20/18 21:00 Room Air 08/20/18 20:00 98.3 85 20 98/58 (71) 96 08/20/18 20:00 94 Intake and Output 08/20/18 08/21/18 19:00 07:00 Intake Total 293 ml 350 ml Output Total 1000 ml 2000 ml Balance -707 ml -1650 ml Intake IV Total 293 ml 350 ml Output Urine Total 1000 ml 2000 ml # Voids 1 2 Microbiology Date/Time Source Procedure Growth Status 08/20/18 15:25 Blood Blood Culture - Preliminary Gram Positive Cocci Resulted Laboratory Tests 08/21/18 01:00: Urine Color Pale yellow, Urine Appearance Clear, Urine pH 7, Urine Specific [place] 1.005, Urine Protein Negative, Urine Glucose (UA) Negative, Urine Ketones Negative, Urine Blood Negative, Urine Nitrite Negative, Urine Bilirubin Negative, Urine Urobilinogen Normal, Urine Leukocyte Esterase Negative 08/21/18 07:50: White Blood Count 4.3#L, Red Blood Count 4.30L, Hemoglobin 12.7L, Hematocrit 36.6L, Mean Corpuscular Volume 85, Mean Corpuscular Hemoglobin 29.7, Mean Corpuscular Hemoglobin Concent 34.8, Red Cell Distribution Width 10.7L, Platelet Count 489H, Mean Platelet Volume 5.5L, Neutrophils (%) (Auto) 58.1, Lymphocytes (%) (Auto) 32.2, Monocytes (%) (Auto) 8.1, Eosinophils (%) (Auto) 0.5, Basophils (%) (Auto) 1.1, Sodium Level 143#, Potassium Level 3.7, Chloride Level 108H, Carbon Dioxide Level 25, Anion Gap 10, Blood Urea Nitrogen 6L, Creatinine 0.7, Estimat Glomerular Filtration Rate > 60, Glucose Level 123H, Calcium Level 8.9, Total Bilirubin 0.4, Aspartate Amino Transf (AST/SGOT) 16, Alanine Aminotransferase (ALT/SGPT) 23, Alkaline Phosphatase 85, Total Protein 6.7, Albumin 3.1L, Globulin 3.6, Albumin/Globulin Ratio 0.9L, Thyroid Stimulating Hormone (TSH) 0.543 08/21/18 09:10: HIV (1&2) Antibody Rapid Negative Current Medications Medications (Trade) Dose Ordered Sig/Yohannes Route PRN Reason Start Time Stop Time Status Last Admin Dose Admin Acetaminophen (Tylenol) 650 mg Q6H PRN ORAL Mild Pain/Temp > 100.5 08/20/18 16:45 09/19/18 16:44 Acetaminophen/ Codeine Phosphate (Tylenol #3) 1 tab Q6H PRN ORAL Pain Scale (6-10) 08/20/18 16:45 08/27/18 16:44 Azithromycin 500 mg/Dextrose 275 ml @ 275 mls/hr Q24HRS IV 08/20/18 18:00 08/26/18 18:59 08/21/18 17:08 Ceftriaxone Sodium 1 gm/ Dextrose 55 ml @ 110 mls/hr Q24H IVPB 08/21/18 14:00 08/28/18 13:59 08/21/18 14:05 Citalopram Hydrobromide (celeXA) 30 mg DAILY ORAL 08/21/18 09:00 09/20/18 08:59 08/21/18 08:58 Docusate Sodium (Colace) 100 mg TWICE A DAY ORAL 08/20/18 18:00 09/19/18 17:59 08/21/18 17:06 Heparin Sodium (Porcine) (Heparin 5000 units/ml) 5,000 units EVERY 12 HOURS SUBQ 08/20/18 21:00 09/19/18 20:59 08/21/18 08:59 Lorazepam (Ativan 2mg/ml 1ml) 0.5 mg Q4H PRN IV For Anxiety 08/20/18 16:45 08/27/18 16:44 Metronidazole 100 ml @ 100 mls/hr Q8HR IVPB 08/21/18 14:00 08/28/18 13:59 08/21/18 14:05 Non-Formulary Medication (Non-Formulary Med) 1 ea DAILY ORAL 08/21/18 09:00 09/20/18 08:59 UNV Olanzapine (ZyPREXA Zydis) 20 mg Q12HR ORAL 08/20/18 21:00 09/19/18 20:59 08/21/18 08:57 Ondansetron HCl (Zofran) 4 mg Q8H PRN IVP Nausea & Vomiting 08/20/18 17:00 09/19/18 16:59 Potassium Chloride 100 ml @ 100 mls/hr Q1H IVPB 08/21/18 16:00 08/21/18 17:59 08/21/18 17:07 Vancomycin HCl (Vanco rx to dose) 1 ea DAILY PRN MISC Per rx protocol 08/21/18 12:45 09/20/18 12:44 Vancomycin HCl 1 gm/Dextrose 275 ml @ 183.708 mls/hr Q8H IVPB 08/22/18 00:00 08/27/18 00:00 Zacarias Treviño MD Aug 21, 2018 17:44
[2018-08-21 20:00] VITALS: BP 99/59
[2018-08-21] MEDS: SAPHRIS 10 MG SL SCH (21:23)
--- NOTE | 2018-08-21 22:34 | Nephrology Progress Note ---
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 2) Clinically euvolemic 3) Schizoaffective Plan: Agree with stopping IV fluid Mobilize him Subjective Subjective He is more alert, still feeling weak, NA is up to 143, no c/p or sob Objective Objective Last 24 Hour Vital Signs Date Time Temp Pulse Resp B/P (MAP) Pulse Ox O2 Delivery O2 Flow Rate FiO2 08/21/18 21:00 Room Air 08/21/18 20:00 98.1 72 18 99/59 (72) 94 08/21/18 20:00 79 08/21/18 16:00 98.7 77 20 116/69 (85) 97 08/21/18 16:00 77 08/21/18 12:00 99.2 91 21 94/54 (67) 96 08/21/18 12:00 85 08/21/18 09:00 Room Air 08/21/18 08:00 98.4 96 22 103/62 (76) 96 08/21/18 08:00 102 08/21/18 04:00 74 08/21/18 04:00 98.3 78 20 92/53 (66) 95 08/21/18 00:00 73 08/21/18 00:00 98.2 73 20 98/57 (71) 97 Intake and Output 08/20/18 08/21/18 19:00 07:00 Intake Total 293 ml 350 ml Output Total 1000 ml 2000 ml Balance -707 ml -1650 ml IV Total 293 ml 350 ml Output Urine Total 1000 ml 2000 ml # Voids 1 2 Laboratory Tests 08/21/18 01:00: Urine Color Pale yellow, Urine Appearance Clear, Urine pH 7, Urine Specific [place] 1.005, Urine Protein Negative, Urine Glucose (UA) Negative, Urine Ketones Negative, Urine Blood Negative, Urine Nitrite Negative, Urine Bilirubin Negative, Urine Urobilinogen Normal, Urine Leukocyte Esterase Negative 08/21/18 07:50: White Blood Count 4.3#L, Red Blood Count 4.30L, Hemoglobin 12.7L, Hematocrit 36.6L, Mean Corpuscular Volume 85, Mean Corpuscular Hemoglobin 29.7, Mean Corpuscular Hemoglobin Concent 34.8, Red Cell Distribution Width 10.7L, Platelet Count 489H, Mean Platelet Volume 5.5L, Neutrophils (%) (Auto) 58.1, Lymphocytes (%) (Auto) 32.2, Monocytes (%) (Auto) 8.1, Eosinophils (%) (Auto) 0.5, Basophils (%) (Auto) 1.1, Sodium Level 143#, Potassium Level 3.7, Chloride Level 108H, Carbon Dioxide Level 25, Anion Gap 10, Blood Urea Nitrogen 6L, Creatinine 0.7, Estimat Glomerular Filtration Rate > 60, Glucose Level 123H, Calcium Level 8.9, Total Bilirubin 0.4, Aspartate Amino Transf (AST/SGOT) 16, Alanine Aminotransferase (ALT/SGPT) 23, Alkaline Phosphatase 85, Total Protein 6.7, Albumin 3.1L, Globulin 3.6, Albumin/Globulin Ratio 0.9L, Thyroid Stimulating Hormone (TSH) 0.543 08/21/18 09:10: HIV (1&2) Antibody Rapid Negative Height (Feet): 5 Height (Inches): 6.00 Weight (Pounds): 190 General Appearance: WD/WN, no apparent distress EENT: PERRL/EOMI Neck: non-tender, normal alignment Cardiovascular: normal rate Respiratory/Chest: chest wall non-tender, lungs clear Abdomen: normal bowel sounds, non tender 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
[2018-08-22] VITALS: BP 104/65
[2018-08-22] MEDS: Vancomycin 1gm/D5W 275ml IVPB SCH ×4 (00:37→08:30)
[2018-08-22 04:00] VITALS: BP 110/70
[2018-08-22 07:09] LABS: BASOPHILS % (AUTO) 1.4 % (0.0-2.0); HEMATOCRIT 37.1 % (42.0-52.0); HEMOGLOBIN 12.9 G/DL (14.2-18.0); LYMPHOCYTES % (AUTO) 26.5 % (20.0-45.0); MEAN CORPUSCULAR VOLUME 86 FL (80-99); MONOCYTES % (AUTO) 7.9 % (1.0-10.0); NEUTROPHILS % (AUTO) 61.2 % (45.0-75.0); PLATELET COUNT 473 K/UL (150-450); RED BLOOD COUNT 4.31 M/UL (4.70-6.10); RED CELL DISTRIBUTION WIDTH 11.4 % (11.6-14.8)
[2018-08-22 07:17] LABS: ANION GAP 5 mmol/L (5-15); BLOOD UREA NITROGEN 8 mg/dL (7-18); CALCIUM 9.3 MG/DL (8.5-10.1); CARBON DIOXIDE 27 MMOL/L (21-32); CHLORIDE 107 MMOL/L (98-107); CREATININE 0.8 MG/DL (0.55-1.30); POTASSIUM 3.8 MMOL/L (3.5-5.1); SODIUM 139 MMOL/L (136-145)
[2018-08-22 08:00] VITALS: BP 116/70
[2018-08-22] MEDS: Citalopram Hydrobromide 10mg Tab ORAL SCH (08:31)
[2018-08-22] MEDS: Docusate 100mg cap ORAL SCH ×2 (08:31→17:50)
[2018-08-22] MEDS: ZyPREXA Zydis 10mg tab ORAL SCH ×2 (08:31→21:28)
[2018-08-22] MEDS: SAPHRIS 10 MG SL SCH ×2 (08:31→21:29)
[2018-08-22] MEDS: Heparin 5000 units/ml inj SUBQ SCH ×2 (08:32→21:29)
--- NOTE | 2018-08-22 11:58 | Nephrology Progress Note ---
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 2) Clinically euvolemic 3) Schizoaffective 4) Some LE neuropathy, R/O Guillain [place] Plan: Mobilize him Subjective Subjective He is more alert, still feeling weak, some numbness in the legs Objective Objective Last 24 Hour Vital Signs Date Time Temp Pulse Resp B/P (MAP) Pulse Ox O2 Delivery O2 Flow Rate FiO2 08/22/18 08:00 94 08/22/18 08:00 98.0 81 19 116/70 (85) 98 08/22/18 04:00 66 08/22/18 04:00 98.2 80 20 110/70 (83) 98 08/22/18 00:00 98.1 67 18 104/65 (78) 96 08/22/18 00:00 63 08/21/18 21:00 Room Air 08/21/18 20:00 98.1 72 18 99/59 (72) 94 08/21/18 20:00 79 08/21/18 16:00 98.7 77 20 116/69 (85) 97 08/21/18 16:00 77 08/21/18 12:00 99.2 91 21 94/54 (67) 96 08/21/18 12:00 85 Intake and Output 08/21/18 08/22/18 19:00 07:00 Intake Total 2245 ml 575 ml Output Total 1375 ml Balance 2245 ml -800 ml Intake Oral 750 ml 200 ml IV Total 1495 ml 375 ml Output Urine Total 1375 ml # Bowel Movements 1 Laboratory Tests 08/22/18 06:30: White Blood Count 6.0, Red Blood Count 4.31L, Hemoglobin 12.9L, Hematocrit 37.1L , Mean Corpuscular Volume 86, Mean Corpuscular Hemoglobin 29.9, Mean Corpuscular Hemoglobin Concent 34.8, Red Cell Distribution Width 11.4L, Platelet Count 473H, Mean Platelet Volume 5.5L, Neutrophils (%) (Auto) 61.2, Lymphocytes (%) (Auto) 26.5, Monocytes (%) (Auto) 7.9, Eosinophils (%) (Auto) 3.0, Basophils (%) (Auto) 1.4, Sodium Level 139, Potassium Level 3.8, Chloride Level 107, Carbon Dioxide Level 27, Anion Gap 5, Blood Urea Nitrogen 8, Creatinine 0.8, Estimat Glomerular Filtration Rate > 60, Glucose Level 91, Calcium Level 9.3 Height (Feet): 5 Height (Inches): 6.00 Weight (Pounds): 190 General Appearance: WD/WN, no apparent distress, alert EENT: PERRL/EOMI, normal ENT inspection Neck: normal alignment, supple Cardiovascular: normal rate, regular rhythm, no JVD Respiratory/Chest: lungs clear Neurologic: touch up painter II-XII grossly normal, other - DR's absent in Lower extremities Paolo Castaneda MD Aug 22, 2018 11:58
[2018-08-22 12:00] VITALS: BP 103/57
[2018-08-22] MEDS: cefTRIAXone 1 GM in D5W 55 ML IVPB SCH (13:30)
[2018-08-22 16:00] VITALS: BP 109/53
[2018-08-22] MEDS ORDERED: Vancomycin 1250mg/D5W 250ml 250 ML IVPB SCH (17:30)
[2018-08-22] MEDS ORDERED: Tubing IV Secondary IV ONE (17:34)
--- NOTE | 2018-08-22 17:41 | Pulmonology Progress Note ---
Assessment/Plan Assessment/Plan PULMONARY PROGRESS NOTE Reason for Hospitalization: Behavioral Complaint Present Illness Allergies: Coded Allergies: No Known Allergies (Unverified , 08/20/18) Medication History Scheduled Asenapine Maleate (Saphris), 10 MG SL BID, (Reported) Citalopram Hydrobromide* (Citalopram Hbr*), 30 MG ORAL DAILY, (Reported) Olanzapine (Olanzapine Odt), 20 MG PO BID, (Reported) Patient History Healthcare decision maker Resuscitation status Full Code Advanced Directive on File Physical Exam General Appearance: WD/WN Last 24 Hour Vital Signs Date Time Temp Pulse Resp B/P (MAP) Pulse Ox O2 Delivery O2 Flow Rate FiO2 08/20/18 16:01 97.9 115 18 124/70 94 Room Air 08/20/18 16:00 105 08/20/18 16:00 Room Air 08/20/18 12:54 115 18 Room Air 08/20/18 12:43 97.9 115 18 144/80 94 Room Air 08/20/18 12:12 98.2 105 18 145/81 97 Room Air Laboratory Tests Test 08/20/18 12:55 08/20/18 13:20 08/20/18 15:25 08/20/18 17:02 White Blood Count 17.3 K/UL (4.8-10.8) H Red Blood Count 3.91 M/UL (4.70-6.10) L Hemoglobin 11.9 G/DL (14.2-18.0) L Hematocrit 33.0 % (42.0-52.0) L Mean Corpuscular Volume 84 FL (80-99) Mean Corpuscular Hemoglobin 30.4 PG (27.0-31.0) Mean Corpuscular Hemoglobin Concent 36.1 G/DL (32.0-36.0) H Red Cell Distribution Width 10.5 % (11.6-14.8) L Platelet Count 439 K/UL (150-450) Mean Platelet Volume 5.5 FL (6.5-10.1) L Neutrophils (%) (Auto) % (45.0-75.0) Lymphocytes (%) (Auto) % (20.0-45.0) Monocytes (%) (Auto) % (1.0-10.0) Eosinophils (%) (Auto) % (0.0-3.0) Basophils (%) (Auto) % (0.0-2.0) Differential Total Cells Counted 100 Neutrophils % (Manual) 87 % (45-75) H Lymphocytes % (Manual) 6 % (20-45) L Monocytes % (Manual) 7 % (1-10) Eosinophils % (Manual) 0 % (0-3) Basophils % (Manual) 0 % (0-2) Band Neutrophils 0 % (0-8) Platelet Estimate Adequate Platelet Morphology Normal Sodium Level 122 MMOL/L (136-145) L Potassium Level 2.9 MMOL/L (3.5-5.1) L Chloride Level 87 MMOL/L (98-107) L Carbon Dioxide Level 23 MMOL/L (21-32) Anion Gap 13 mmol/L (5-15) Blood Urea Nitrogen 6 mg/dL (7-18) L Creatinine 0.6 MG/DL (0.55-1.30) Estimat Glomerular Filtration Rate > 60 mL/min (>60) Glucose Level 123 MG/DL (74-106) H Osmolality 249 mOsm/kg (297-317) L Uric Acid 4.1 MG/DL (2.6-7.2) Calcium Level 8.7 MG/DL (8.5-10.1) Total Bilirubin 0.4 MG/DL (0.2-1.0) Aspartate Amino Transf (AST/SGOT) 18 U/L (15-37) Alanine Aminotransferase (ALT/SGPT) 25 U/L (12-78) Alkaline Phosphatase 88 U/L (46-116) Total Creatine Kinase 161 U/L (26-308) Creatine Kinase MB 1.3 NG/ML (0.0-3.6) Creatine Kinase MB Relative Index 0.8 Troponin I 0.017 ng/mL (0.000-0.056) Total Protein 7.0 G/DL (6.4-8.2) Albumin 3.5 G/DL (3.4-5.0) Globulin 3.5 g/dL Albumin/Globulin Ratio 1.0 (1.0-2.7) Salicylates Level 1.3 ug/mL (2.8-20) L Acetaminophen Level < 2 MCG/ML (10-30) L Serum Alcohol < 3 mg/dL Urine Random Sodium 77 mmol/L (20-110) Urine Opiates Screen Negative (NEGATIVE) Urine Barbiturates Screen Negative (NEGATIVE) Phencyclidine (PCP) Screen Negative (NEGATIVE) Urine Amphetamines Screen Negative (NEGATIVE) Urine Benzodiazepines Screen Negative (NEGATIVE) Urine Cocaine Screen Negative (NEGATIVE) Urine Marijuana (THC) Screen Negative (NEGATIVE) Lactic Acid Level 1.70 mmol/L (0.4-2.0) Urine Osmolality 57 mOsm/kg (429-449) L Height (Feet): 5 Height (Inches): 6.00 Weight (Pounds): 190 Medications Current Medications Medications (Trade) Dose Ordered Sig/Yohannes Route PRN Reason Start Time Stop Time Status Last Admin Dose Admin Acetaminophen (Tylenol) 650 mg Q6H PRN ORAL Mild Pain/Temp > 100.5 08/20/18 16:45 09/19/18 16:44 Acetaminophen/ Codeine Phosphate (Tylenol #3) 1 tab Q6H PRN ORAL Pain Scale (6-10) 08/20/18 16:45 08/27/18 16:44 Azithromycin 500 mg/Dextrose 275 ml @ 275 mls/hr Q24HRS IV 08/20/18 18:00 08/26/18 18:59 08/20/18 18:16 Ceftriaxone Sodium 1 gm/ Dextrose 55 ml @ 110 mls/hr Q24H IVPB 08/21/18 14:00 08/28/18 13:59 Citalopram Hydrobromide (celeXA) 30 mg DAILY ORAL 08/21/18 09:00 09/20/18 08:59 Docusate Sodium (Colace) 100 mg TWICE A DAY ORAL 08/20/18 18:00 09/19/18 17:59 08/20/18 17:45 Heparin Sodium (Porcine) (Heparin 5000 units/ml) 5,000 units EVERY 12 HOURS SUBQ 08/20/18 21:00 09/19/18 20:59 08/20/18 21:15 Levofloxacin 150 ml @ 150 mls/hr Q24H IV 08/20/18 14:15 08/20/18 23:59 08/20/18 14:35 Lorazepam (Ativan 2mg/ml 1ml) 0.5 mg Q4H PRN IV For Anxiety 08/20/18 16:45 08/27/18 16:44 Non-Formulary Medication (Non-Formulary Med) 1 ea DAILY ORAL 08/21/18 09:00 09/20/18 08:59 UNV Olanzapine (ZyPREXA Zydis) 20 mg Q12HR ORAL 08/20/18 21:00 09/19/18 20:59 Ondansetron HCl (Zofran) 4 mg Q8H PRN IVP Nausea & Vomiting 08/20/18 17:00 09/19/18 16:59 Sodium Chloride 1,000 ml @ 75 mls/hr [id number] IV 08/20/18 17:30 09/19/18 17:29 08/20/18 17:25 Assessment/Plan Status Narrative HPI 38-year-old male presents to the emergency department complaining of "be ing shaky, weak, and feeling as though he is going to ". Patient has history of bipolar and schizoaffective disorder and he is currently taking citalopram, olanzapine and Saphris. Patient states that he just began these medications last month. He also reports that he has had some diarrhea and reports having dysuria for almost 2 years. Patient states that he had unprotected intercourse with a prostitute some 2 years ago and has had his symptoms ever since. He denies penile discharge or blood in the urine. Patient reports recently having a cough as well he states he is having 7 out of 10 in severity right sided chest pain. He denies shortness of breath. pt. denies recent travel or fevers.Pt. denies SI/HI, or hallucinations. Allergies: Coded Allergies: No Known Allergies (Unverified , 08/20/18) Nursing Documentation-[facility] Past Medical History: No History, Except For History Of Psychiatric Problem: Yes Physical Exam Vital Signs Date Time Temp Pulse Resp B/P (MAP) Pulse Ox O2 Delivery O2 Flow Rate FiO2 08/20/18 12:12 98.2 105 18 145/81 97 Room Air Medical Decision Making PA Attestation Dr. Leal is my supervising Physician whom patient management has been discussed with. Diagnostic Impression: Primary Impression: Hyponatremia ER Course 38-year-old male presents to the emergency department complaining of "be ing shaky, weak, and feeling as though he is going to ". Patient has history of bipolar and schizoaffective disorder and he is currently taking citalopram, olanzapine and Saphris. Patient states that he just began these medications last month. He also reports that he has had some diarrhea and reports having dysuria for almost 2 years. Patient states that he had unprotected intercourse with a prostitute some 2 years ago and has had his symptoms ever since. He denies penile discharge or blood in the urine. Patient reports recently having a cough as well he states he is having 7 out of 10 in severity right sided chest pain. He denies shortness of breath. pt. denies recent travel or fevers.Pt. denies SI/HI, or hallucinations. Pt. presents to the ED c/o [ ] Ddx considered but are not limited to VA, pneumonia, contusion, costochondritis , PE, ACS, Shoulder strain, Chest wall contusion. aortic dissection. Vital signs: are WNL, pt. is afebrile H&PE are most consistent with Pt. has hyperreflexia on exam, is diaphoretic, restless ( akanthesia ) and tardrive dyskinesia. ORDERS: - EKG: -CBC: leukocytosis 17.9 -CMP: hyponatremia and hypokalemia -Urine Sodium: -CK: -Troponin: CXR: -Lactic Acid -Blood cultures: Pending Labs Test 08/20/18 12:55 08/20/18 13:20 08/20/18 15:25 White Blood Count 17.3 K/UL (4.8-10.8) Red Blood Count 3.91 M/UL (4.70-6.10) Hemoglobin 11.9 G/DL (14.2-18.0) Hematocrit 33.0 % (42.0-52.0) Mean Corpuscular Volume 84 FL (80-99) Mean Corpuscular Hemoglobin 30.4 PG (27.0-31.0) Mean Corpuscular Hemoglobin Concent 36.1 G/DL (32.0-36.0) Red Cell Distribution Width 10.5 % (11.6-14.8) Platelet Count 439 K/UL (150-450) Mean Platelet Volume 5.5 FL (6.5-10.1) Neutrophils (%) (Auto) % (45.0-75.0) Lymphocytes (%) (Auto) % (20.0-45.0) Monocytes (%) (Auto) % (1.0-10.0) Eosinophils (%) (Auto) % (0.0-3.0) Basophils (%) (Auto) % (0.0-2.0) Differential Total Cells Counted 100 Neutrophils % (Manual) 87 % (45-75) Lymphocytes % (Manual) 6 % (20-45) Monocytes % (Manual) 7 % (1-10) Eosinophils % (Manual) 0 % (0-3) Basophils % (Manual) 0 % (0-2) Band Neutrophils 0 % (0-8) Platelet Estimate Adequate Platelet Morphology Normal Sodium Level 122 MMOL/L (136-145) Potassium Level 2.9 MMOL/L (3.5-5.1) Chloride Level 87 MMOL/L (98-107) Carbon Dioxide Level 23 MMOL/L (21-32) Anion Gap 13 mmol/L (5-15) Blood Urea Nitrogen 6 mg/dL (7-18) Creatinine 0.6 MG/DL (0.55-1.30) Estimat Glomerular Filtration Rate > 60 mL/min (>60) Glucose Level 123 MG/DL (74-106) Calcium Level 8.7 MG/DL (8.5-10.1) Total Bilirubin 0.4 MG/DL (0.2-1.0) Aspartate Amino Transf (AST/SGOT) 18 U/L (15-37) Alanine Aminotransferase (ALT/SGPT) 25 U/L (12-78) Alkaline Phosphatase 88 U/L (46-116) Total Creatine Kinase 161 U/L (26-308) Creatine Kinase MB 1.3 NG/ML (0.0-3.6) Creatine Kinase MB Relative Index 0.8 Troponin I 0.017 ng/mL (0.000-0.056) Total Protein 7.0 G/DL (6.4-8.2) Albumin 3.5 G/DL (3.4-5.0) Globulin 3.5 g/dL Albumin/Globulin Ratio 1.0 (1.0-2.7) Salicylates Level 1.3 ug/mL (2.8-20) Acetaminophen Level < 2 MCG/ML (10-30) Serum Alcohol < 3 mg/dL Urine Random Sodium 77 mmol/L (20-110) Urine Opiates Screen Negative (NEGATIVE) Urine Barbiturates Screen Negative (NEGATIVE) Phencyclidine (PCP) Screen Negative (NEGATIVE) Urine Amphetamines Screen Negative (NEGATIVE) Urine Benzodiazepines Screen Negative (NEGATIVE) Urine Cocaine Screen Negative (NEGATIVE) Urine Marijuana (THC) Screen Negative (NEGATIVE) Assessment/Plan Admit inpatient Renal Consult DC IV Saline Fluid restrict DIRECTOR OF PULMONARY UNIT meds PPX PRN Ativan Subjective ROS Limited/Unobtainable: No Allergies: Coded Allergies: No Known Allergies (Unverified , 08/20/18) Objective Last 24 Hour Vital Signs Date Time Temp Pulse Resp B/P (MAP) Pulse Ox O2 Delivery O2 Flow Rate FiO2 08/22/18 16:00 98.5 81 20 109/53 (71) 97 08/22/18 12:00 99.6 88 21 103/57 (72) 97 08/22/18 12:00 84 08/22/18 09:00 Room Air 08/22/18 08:00 94 08/22/18 08:00 98.0 81 19 116/70 (85) 98 08/22/18 04:00 66 08/22/18 04:00 98.2 80 20 110/70 (83) 98 08/22/18 00:00 98.1 67 18 104/65 (78) 96 08/22/18 00:00 63 08/21/18 21:00 Room Air 08/21/18 20:00 98.1 72 18 99/59 (72) 94 08/21/18 20:00 79 Intake and Output 08/21/18 08/22/18 18:59 06:59 Intake Total 2320 ml 575 ml Output Total 1375 ml Balance 2320 ml -800 ml Intake Oral 750 ml 200 ml IV Total 1570 ml 375 ml Output Urine Total 1375 ml # Bowel Movements 1 Microbiology Date/Time Source Procedure Growth Status 08/20/18 15:25 Blood Blood Culture - Preliminary Gram Positive Cocci Resulted 08/20/18 15:25 Blood Blood Culture - Preliminary NO GROWTH AFTER 24 HOURS Resulted Laboratory Tests 08/22/18 06:30: White Blood Count 6.0, Red Blood Count 4.31L, Hemoglobin 12.9L, Hematocrit 37.1L , Mean Corpuscular Volume 86, Mean Corpuscular Hemoglobin 29.9, Mean Corpuscular Hemoglobin Concent 34.8, Red Cell Distribution Width 11.4L, Platelet Count 473H, Mean Platelet Volume 5.5L, Neutrophils (%) (Auto) 61.2, Lymphocytes (%) (Auto) 26.5, Monocytes (%) (Auto) 7.9, Eosinophils (%) (Auto) 3.0, Basophils (%) (Auto) 1.4, Sodium Level 139, Potassium Level 3.8, Chloride Level 107, Carbon Dioxide Level 27, Anion Gap 5, Blood Urea Nitrogen 8, Creatinine 0.8, Estimat Glomerular Filtration Rate > 60, Glucose Level 91, Calcium Level 9.3 08/22/18 15:00: Vancomycin Level Trough 11.5 Current Medications Medications (Trade) Dose Ordered Sig/Yohannes Route PRN Reason Start Time Stop Time Status Last Admin Dose Admin Acetaminophen (Tylenol) 650 mg Q6H PRN ORAL Mild Pain/Temp > 100.5 08/20/18 16:45 09/19/18 16:44 Acetaminophen/ Codeine Phosphate (Tylenol #3) 1 tab Q6H PRN ORAL Pain Scale (6-10) 08/20/18 16:45 08/27/18 16:44 Azithromycin 500 mg/Dextrose 275 ml @ 275 mls/hr Q24HRS IV 08/20/18 18:00 08/26/18 18:59 08/21/18 17:08 Ceftriaxone Sodium 1 gm/ Dextrose 55 ml @ 110 mls/hr Q24H IVPB 08/21/18 14:00 08/28/18 13:59 08/22/18 13:30 Citalopram Hydrobromide (celeXA) 30 mg DAILY ORAL 08/21/18 09:00 09/20/18 08:59 08/22/18 08:31 Docusate Sodium (Colace) 100 mg TWICE A DAY ORAL 08/20/18 18:00 09/19/18 17:59 08/22/18 08:31 Heparin Sodium (Porcine) (Heparin 5000 units/ml) 5,000 units EVERY 12 HOURS SUBQ 08/20/18 21:00 09/19/18 20:59 08/22/18 08:32 Lorazepam (Ativan 2mg/ml 1ml) 0.5 mg Q4H PRN IV For Anxiety 08/20/18 16:45 08/27/18 16:44 Metronidazole 100 ml @ 100 mls/hr Q8HR IVPB 08/21/18 14:00 08/28/18 13:59 08/22/18 14:44 Olanzapine (ZyPREXA Zydis) 20 mg Q12HR ORAL 08/20/18 21:00 09/19/18 20:59 08/22/18 08:31 Ondansetron HCl (Zofran) 4 mg Q8H PRN IVP Nausea & Vomiting 08/20/18 17:00 09/19/18 16:59 Patient Own Medication (Patient's Own Med) 1 ea Q12HR SL 08/21/18 21:00 09/20/18 20:59 08/22/18 08:31 Vancomycin HCl (Vanco rx to dose) 1 ea DAILY PRN MISC Per rx protocol 08/21/18 12:45 09/20/18 12:44 Vancomycin HCl/ Dextrose 250 ml @ 166.667 mls/hr Q8H IVPB 08/22/18 17:30 08/27/18 17:29 Zacarias Treviño MD Aug 22, 2018 17:41
[2018-08-22] MEDS: Azithromycin 500 MG in D5W 275 ML IV SCH (17:50)
[2018-08-22 20:00] VITALS: BP 103/60
[2018-08-23] VITALS: BP 96/64
[2018-08-23] MEDS ORDERED: LORazepam Inj 2mg/ml 1ml IV PRN (00:45)
[2018-08-23] MEDS: Vancomycin 1250mg/D5W 250ml 250 ML IVPB SCH ×3 (01:00→17:37)
[2018-08-23 04:00] VITALS: BP 106/65
[2018-08-23] MEDS ORDERED: Tylenol #3 tab (300mg/30mg) ORAL PRN (04:45)
[2018-08-23 08:00] VITALS: BP 111/73
--- NOTE | 2018-08-23 08:35 | General Progress Note ---
Assessment/Plan Assessment/Plan BAD hyponatremia BCX + PLAN iv antibiotics id evaluation renal noted dc planning pending final sensitivity Subjective Allergies: Coded Allergies: No Known Allergies (Unverified , 08/20/18) Subjective care noted on antibiotics Objective Last 24 Hour Vital Signs Date Time Temp Pulse Resp B/P (MAP) Pulse Ox O2 Delivery O2 Flow Rate FiO2 08/23/18 04:00 97.9 75 18 106/65 (79) 96 08/23/18 00:00 97.8 66 18 96/64 (75) 96 08/22/18 21:00 Room Air 08/22/18 20:00 97.6 86 18 103/60 (74) 97 08/22/18 16:00 76 08/22/18 16:00 98.5 81 20 109/53 (71) 97 08/22/18 12:00 99.6 88 21 103/57 (72) 97 08/22/18 12:00 84 08/22/18 09:00 Room Air Intake and Output 08/22/18 08/23/18 19:00 07:00 Intake Total 1239.997 ml 785.003 ml Output Total 1200 ml 600 ml Balance 39.997 ml 185.003 ml Intake Oral 260 ml 360 ml IV Total 979.997 ml 425.003 ml Output Urine Total 1200 ml 600 ml # Voids 1 # Bowel Movements 1 Laboratory Tests 08/22/18 15:00: Vancomycin Level Trough 11.5 Height (Feet): 5 Height (Inches): 6.00 Weight (Pounds): 190 Objective WDWN NAD clear breath sounds bilaterally without rhonchi or wheeze [id number] without MRG NABS nontender no HSM no CCE nonfocal confused Dilshad Greene MD Aug 23, 2018 08:35
[2018-08-23] MEDS: ZyPREXA Zydis 10mg tab ORAL SCH ×2 (09:22→20:35)
[2018-08-23] MEDS: Docusate 100mg cap ORAL SCH ×2 (09:22→17:37)
[2018-08-23] MEDS: Citalopram Hydrobromide 10mg Tab ORAL SCH (09:22)
[2018-08-23] MEDS: SAPHRIS 10 MG SL SCH ×2 (09:23→20:35)
[2018-08-23] MEDS: Heparin 5000 units/ml inj SUBQ SCH ×2 (09:31→20:39)
[2018-08-23 12:00] VITALS: BP 112/70
[2018-08-23] MEDS ORDERED: cefTRIAXone 1 GM in D5W 55 ML IVPB SCH (14:00)
[2018-08-23] MEDS ORDERED: Tubing IV Secondary IV ONE (14:48)
[2018-08-23 16:00] VITALS: BP 98/64
[2018-08-23] MEDS ORDERED: Azithromycin 500 MG in D5W 275 ML IV SCH (18:00)
--- NOTE | 2018-08-23 19:30 | Consultation ---
DATE OF CONSULTATION: 08/23/2018 INFECTIOUS DISEASES CONSULTATION CONSULTING PHYSICIAN: Caleb Sweeney M.D. REFERRING PHYSICIAN: Dilshad Greene M.D. REASON FOR CONSULTATION: Fever. HISTORY OF PRESENTING ILLNESS: This is a 38-year-old gentleman with history of bipolar disorder and schizoaffective disorder, felt like he was going to . He had fever and chills along with cough and shortness of breath. An Infectious Diseases consultation has been obtained for antibiotics. PAST MEDICAL HISTORY: 1. History of bipolar disorder. 2. History of schizoaffective disorder. SOCIAL HISTORY: He is a smoker. He used to drink alcohol. He does not drink any more. No history of drug use. FAMILY HISTORY: Noncontributory. REVIEW OF SYSTEMS: RESPIRATORY: He had fever and chills. He has cough. He has shortness of breath. No chest pain. CARDIAC: No chest pain. No palpitations. No dizziness. No syncope. GASTROINTESTINAL: No nausea. No vomiting. No abdominal pain. He does have diarrhea. MEDICATIONS: As an inpatient, he is on ceftriaxone, azithromycin, Celexa, docusate, subcutaneous heparin, olanzapine, IV vancomycin, Flagyl, Tylenol, Tylenol No. 3, Zofran, and Ativan. ALLERGIES: No known drug allergies. PHYSICAL EXAMINATION: VITAL SIGNS: Temperature of 98, T-max of 99.6, pulse of 98, respiratory rate of 18, blood pressure 111/73, O2 saturation of 97%. HEENT: Pupils equally reactive to light and accommodation. Mouth appears clean without thrush. NECK: Supple. No adenopathy. No JVD. CARDIOVASCULAR: Regular rate and rhythm. No murmurs. LUNGS: Clear to auscultation bilaterally. No crackles. No wheezes. ABDOMEN: Soft and nontender. No organomegaly. EXTREMITIES: No cyanosis, no clubbing, no edema. LABORATORY AND DIAGNOSTIC DATA: White count of 17 on 08/20/2018. White count of 6 on 08/22/2018. Hemoglobin 12.9, hematocrit 37.1, MCV 86, platelet count of 473,000. Sodium 139, potassium 3.8, chloride 107, bicarbonate 27, BUN 8, creatinine 0.8, glucose 91, calcium 9.3. On 08/21/2018, total bilirubin 0.4, AST 16, ALT 23, alkaline phosphatase 85, total protein 6.7, albumin 3.7. HIV test is negative. UA is showing LE negative. Blood culture is showing gram-positive cocci on 08/20/2018. Nasal swab was negative for MRSA. Rectal swab was negative for VRE. Chest x-ray is showing no acute process. ASSESSMENT: 1. This is a 38-year-old gentleman with history of bipolar disorder and schizoaffective disorder, who comes in with fevers, cough, and shortness of breath and was found to have positive blood cultures with gram-positive cocci. 2. Bipolar disorder. 3. Schizophrenia. 4. Leukocytosis has resolved. PLAN: 1. Continue IV vancomycin for now. 2. Discontinue ceftriaxone, azithromycin, and Flagyl. 3. We will follow up cultures and adjust antibiotics accordingly. I would like to thank, Dr. Greene, for this consultation. Caleb Sweeney M.D. DR: Lowell JOB#: [id number] CC: Dilshad Greene M.D.; Fax#: [phone]
[2018-08-23 20:00] VITALS: BP 103/67
[2018-08-24] VITALS: BP 105/61
[2018-08-24] MEDS: Vancomycin 1250mg/D5W 250ml 250 ML IVPB SCH ×2 (01:06→08:42)
[2018-08-24 04:00] VITALS: BP 102/66
[2018-08-24 08:00] VITALS: BP 110/72
[2018-08-24] MEDS: Citalopram Hydrobromide 10mg Tab ORAL SCH (08:25)
[2018-08-24] MEDS: Docusate 100mg cap ORAL SCH (08:27)
[2018-08-24] MEDS: ZyPREXA Zydis 10mg tab ORAL SCH (08:27)
[2018-08-24] MEDS: SAPHRIS 10 MG SL SCH (08:27)
[2018-08-24] MEDS: Heparin 5000 units/ml inj SUBQ SCH (08:33)
[2018-08-24 12:00] VITALS: BP 132/99
--- NOTE | 2018-08-24 13:47 | General Progress Note ---
Assessment/Plan Assessment/Plan BAD hyponatremia BCX + contaminant PLAN iv antibiotics- dc id evaluation- cleared off antibiotics dc back to B&C Subjective Allergies: Coded Allergies: No Known Allergies (Unverified , 08/20/18) Subjective care noted cleared by ID bcx contaminant Objective Last 24 Hour Vital Signs Date Time Temp Pulse Resp B/P (MAP) Pulse Ox O2 Delivery O2 Flow Rate FiO2 08/24/18 12:00 98.9 83 20 132/99 (110) 99 08/24/18 08:00 Room Air 08/24/18 08:00 98.5 104 21 110/72 (85) 94 08/24/18 04:00 98.3 68 20 102/66 (78) 94 08/24/18 00:00 98.1 68 18 105/61 (76) 95 08/23/18 21:00 Room Air 08/23/18 20:00 98.2 71 19 103/67 (79) 96 08/23/18 16:00 98.3 81 18 98/64 (75) 94 Intake and Output 08/23/18 08/24/18 19:00 07:00 Intake Total 2276.667 ml 573.333 ml Output Total 550 ml Balance 1726.667 ml 573.333 ml Intake Oral 1860 ml 240 ml IV Total 416.667 ml 333.333 ml Output Urine Total 550 ml # Voids 6 3 # Bowel Movements 3 1 Laboratory Tests 08/23/18 16:40: Vancomycin Level Trough 13.7H Height (Feet): 5 Height (Inches): 6.00 Weight (Pounds): 190 Objective WDWN NAD clear breath sounds bilaterally without rhonchi or wheeze [id number] without MRG NABS nontender no HSM no CCE nonfocal confused Dilshad Greene MD Aug 24, 2018 13:47
[2018-08-24 16:00] VITALS: BP 120/84
--- NOTE | 2018-08-24 18:30 | Cardiology Report ---
APPROVED REPORT EKG Measurement Heart [id number] Sinus tachycardia Otherwise normal ECG
--- NOTE | 2018-08-25 12:26 | Discharge Summary ---
Discharge Summary Discharge Summary _ DATE OF ADMISSION: 08/20/2018 DATE OF DISCHARGE: 08/24/2018 REASON FOR ADMISSION: 38 years old male with past medical history of schizophrenia , bipolar disorder ,depression, presented to emergency department with weakness, recent cough . No chest pain ,no shortness of breath . no fevers . Patient denied suicidal or homicidal ideations, no hallucinations. Patient reported dysuria ,but no penile discharge or blood in the urine. Upon evaluation vital signs revealed mild tachycardia 105 . Laboratory workup revealed leukocytosis WBC 17.3 ,hemoglobin 11.9, hematocrit 33. Sodium 122, potassium 2.9. Troponin was negative . Lactic acid within normal range . Chest x-ray revealed no acute cardiopulmonary pathology. Urinalysis was unremarkable. Patient started on empiric antibiotics ,medicated for pain and anxiety and admitted for further management with diagnosis of acute hyponatremia CONSULTANTS: ID specialist Dr. Sweeney ug designer Dr. Castaneda [facility] COURSE: Patient admitted and started on empiric antibiotics. Infectious disease specialist closely followed. Blood culture 1 out of 4 revealed Staph epidermidis, likely contaminant. Leukocytosis resolved, patient afebrile Antibiotics stopped as per ID specialist suggestions . Pin Maker closely followed for hyponatremia. Workup for hyponatremia done. 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 Patient was on fluid restriction 1.5 L/day. Prior to discharge sodium 139 . Potassium was replaced . Potassium prior to discharge 3.8 . Hemoglobin and hematocrit were closely monitored with goal to keep hemoglobin above 7 , remained at baseline. Prior to discharge hemoglobin 12.9 hematocrit 37.1 Psychiatric medication regimen optimized . DVT prophylaxis provided Patient was stable for discharge FINAL DIAGNOSES: Hyponatremia secondary to psychogenic polydipsia- resolved Bipolar disorder Schizophrenia Leukocytosis -resolved Hypokalemia -resolved DISCHARGE MEDICATIONS: See Medication Reconciliation list. DISCHARGE INSTRUCTIONS: Patient was discharged home . Follow up with primary care provider in one week. I have been assigned to dictate discharge summary for this account. I was not involved in the patient's management. Saritha West NP Aug 25, 2018 12:26
== END 2018-08-24 16:47 | disposition home or self-care (01) | DRG 426 ==
LOC: EMR 13:17 → 2E 14:14 → EDBEDREQ 14:41 → EDBEDREQSVC 14:41 → 2E 21:11 → 3E 08-22 22:30
DX: E87.1 Hypo-osmolality and hyponatremia (principal); F25.9 Schizoaffective disorder, unspecified; R63.1 Polydipsia; F31.9 Bipolar disorder, unspecified; E87.6 Hypokalemia; F17.200 Nicotine dependence, unspecified, uncomplicated; G62.9 Polyneuropathy, unspecified
CPT/HCPCS: 36415; 71045; 80048; 80053; 80202; 80307; 80329; 81003; 82550; 82553; 83605; 83930; 83935; 84300; 84443; 84484; 84550; 85007; 85025; 86703; 87040; 87081; 87181; 93005; 96361; 96365; 96375; 99285

== ENCOUNTER 2018-08-25 13:26 | Inpatient (IN) | payer OTHER ==
[~2018-08-25] VITALS: Ht 165.1 cm; Wt 77.3 kg
[2018-08-25] VITALS (21 sets, daily range): BP systolic 113–172; BP diastolic 58–81
[~2018-08-25 13:26] MED LIST: CITALOPRAM HBR10 M1 ORAL; OLANZAPINE ODT20 MG PO; SAPHRIS10 MG SL
--- NOTE | 2018-08-25 14:09 | Emergency Room Report ---
History of Present Illness General Chief Complaint: General Complaint Source: Patient, Medical Record Present Illness HPI Patient walked to the emergency department from [facility]. His complaint was anxiety and weakness. He has difficulty answering my questions at this time. He denies drugs but states he had been drinking alcohol but not recently. He denies cough. He won't answer whether he has nausea vomiting diarrhea or pain in his body. Patient was recently here 08/20 - admitted for hyponatremia. Also had leukocytosis and hypokalemia. Discharged yesterday. Hyponatremia fully corrected. 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 H/O schizophrenia - on meds This is the history when he presented: 38-year-old male presents to the emergency department complaining of "be ing shaky, weak, and feeling as though he is going to ". Patient has history of bipolar and schizoaffective disorder and he is currently taking citalopram, olanzapine and Saphris. Patient states that he just began these medications last month. He also reports that he has had some diarrhea and reports having dysuria for almost 2 years. Patient states that he had unprotected intercourse with a prostitute some 2 years ago and has had his symptoms ever since. He denies penile discharge or blood in the urine. Patient reports recently having a cough as well he states he is having 7 out of 10 in severity right sided chest pain. He denies shortness of breath. pt. denies recent travel or fevers.Pt. denies SI/HI, or hallucinations. Allergies: Coded Allergies: No Known Allergies (Unverified , 08/20/18) Patient History Limited by: medical condition Past Medical History: see triage record, old chart reviewed Social History: Reports: alcohol use; Denies: drug use Social History Narrative assisted living Reviewed Nursing Documentation: PMH: Agreed; PSxH: Agreed Nursing Documentation-PMH Past Medical History: No History, Except For Hx Cardiac Problems: Yes Hx Cancer: No Hx Gastrointestinal Problems: No History Of Psychiatric Problem: Yes - anxiety Hx Neurological Problems: No Review of Systems All Other Systems: limited Physical Exam Vital Signs Date Time Temp Pulse Resp B/P (MAP) Pulse Ox O2 Delivery O2 Flow Rate FiO2 08/25/18 13:28 99.1 140 18 144/80 95 Room Air Sp02 EP Interpretation: reviewed, normal General Appearance: lethargic, other - Not answer questions Head: normocephalic, atraumatic Eyes: bilateral eye normal inspection, bilateral eye PERRL ENT: moist mucus membranes Neck: supple, no meningismus Respiratory: lungs clear, normal breath sounds Cardiovascular #1: tachycardia Cardiovascular #2: 2+ radial (R) Gastrointestinal: normal inspection, normal bowel sounds, non tender, no mass, non-distended Musculoskeletal: back normal, gait/station normal, normal range of motion Neurologic: alert, motor strength/tone normal, DTRs symmetric, sensory intact, other - not answering questions, oriented - X1 Psychiatric: other - eyes open but unable to answer Skin: normal inspection, warm/dry Procedures Critical Care Time Critical Care Time Total Critical Care Time: 60 min bedside evaluation and treatment excludes procedures (EKG, intubation). Reason for critical care: hyponatremia, atypical seizure with upper airway compromise, possible sepsis Possible complications: hypotension, hypertension, UT, shock, arrhythmias, metabolic acidosis, end organ damage, respiratory failure. Interventions: 3% NS, intubation, sedation, discussion with family, repeat evaluations Course: Patient presented with weakness. Critical hyponatremia found. 3% NS begun. Patient with tongue obstructing airway and clenched teeth. Intubated and sedated. Antibiotics begun as leukocytosis. Adjustment of vent and sedation. Discussion with admitting MD. Consultations: nursing staff, family, RT, critical care MD Performed by: Dr. Leal Tolerated well condition = critical Intubation Intubation : Consent: Emergent Intubation Method: orotracheal Tube Size (cm): 7.5 Medications: Etomidate, Succinylcholine Breath Sounds after Intubation: equal Intubation Complications: no complications Post Intubation Xray: Yes Attempts: Other - 2 - needed paralysis Patient Tolerated: Well Complications: None Progress patient initially bit down on laryngoscope. Succinyl choline given and intubation without difficulty. BS bilat at 24 cm at teeth. Medical Decision Making Diagnostic Impression: Primary Impression: Altered level of consciousness Additional Impressions: Hyponatremia Hypokalemia Atypical seizure Leukocytosis Qualified Codes: D72.828 - Other elevated white blood cell count ER Course Patient presents with altered level consciousness and tachycardia with a history of hyponatremia. Differential includes sepsis, hyponatremia, alcohol withdrawal, head bleed amongst others. Evaluation will be with EKG, chest x-ray , CT the head and labs. The patient will be treated with IV hydration. Patient has a critical hyponatremia and hypokalemia again. This time is worse than when he presented on the . In addition he has white count is 13,000 which is less than the th. No nuchal rigidity, doubt meningitis. Lactate normal. Blood cultures and lactate are sent. In addition urine sodium osmolality and serum osmolality are sent. 3% saline is begun. Also potassium is ordered IV. Because of the leukocytosis he'll be covered with antibiotics after blood cultures and lactate are obtained. Patient diaphoretic. Slightly less responsive. Patient with snoring resps, unresponsive. Oral airway with out gag. Intubated. No tonic clonic movements, but was unresponsive and with teeth clamped. Moving all 4, not responding to commands. Sedation increased. Patient discussed with Dr. Greene. Also discussed with patient's brother. Improved but still critical. Admit ICU. Vent adjusted for resp alkalosis. Laboratory Tests Test 08/25/18 14:00 08/25/18 16:25 08/25/18 17:58 White Blood Count 13.7 K/UL (4.8-10.8) H Red Blood Count 3.94 M/UL (4.70-6.10) L Hemoglobin 11.7 G/DL (14.2-18.0) L Hematocrit 33.2 % (42.0-52.0) L Mean Corpuscular Volume 84 FL (80-99) Mean Corpuscular Hemoglobin 29.7 PG (27.0-31.0) Mean Corpuscular Hemoglobin Concent 35.2 G/DL (32.0-36.0) Red Cell Distribution Width 10.8 % (11.6-14.8) L Platelet Count 441 K/UL (150-450) Mean Platelet Volume 5.5 FL (6.5-10.1) L Neutrophils (%) (Auto) 80.8 % (45.0-75.0) H Lymphocytes (%) (Auto) 12.5 % (20.0-45.0) L Monocytes (%) (Auto) 4.9 % (1.0-10.0) Eosinophils (%) (Auto) 0.7 % (0.0-3.0) Basophils (%) (Auto) 1.1 % (0.0-2.0) Sodium Level 117 MMOL/L (136-145) *L Potassium Level 2.9 MMOL/L (3.5-5.1) L Chloride Level 85 MMOL/L (98-107) L Carbon Dioxide Level 20 MMOL/L (21-32) L Anion Gap 12 mmol/L (5-15) Blood Urea Nitrogen 7 mg/dL (7-18) Creatinine 0.6 MG/DL (0.55-1.30) Estimate Glomerular Filtration Rate > 60 mL/min (>60) Glucose Level 113 MG/DL (74-106) H Osmolality 247 mOsm/kg (297-317) L Lactic Acid Level 1.40 mmol/L (0.4-2.0) Calcium Level 8.6 MG/DL (8.5-10.1) Total Bilirubin 0.6 MG/DL (0.2-1.0) Aspartate Amino Transferase (AST) 22 U/L (15-37) Alanine Aminotransferase (ALT) 29 U/L (12-78) Alkaline Phosphatase 91 U/L (46-116) Total Creatine Kinase 106 U/L (26-308) Troponin I 0.000 ng/mL (0.000-0.056) Total Protein 6.8 G/DL (6.4-8.2) Albumin 3.4 G/DL (3.4-5.0) Globulin 3.4 g/dL Albumin/Globulin Ratio 1.0 (1.0-2.7) Triglycerides Level 84 MG/DL (30-150) Salicylates Level 1.2 ug/mL (2.8-20) L Acetaminophen Level < 2 MCG/ML (10-30) L Serum Alcohol < 3 mg/dL Urine Color Pale yellow Urine Appearance Clear Urine pH 6 (4.5-8.0) Urine Specific [place] 1.010 (1.005-1.035) Urine Protein Negative (NEGATIVE) Urine Glucose (UA) Negative (NEGATIVE) Urine Ketones 3+ (NEGATIVE) H Urine Blood Negative (NEGATIVE) Urine Nitrite Negative (NEGATIVE) Urine Bilirubin Negative (NEGATIVE) Urine Urobilinogen Normal MG/DL (0.0-1.0) Urine Leukocyte Esterase Negative (NEGATIVE) Urine Osmolality 291 mOsm/kg (429-449) L Urine Random Sodium 93 mmol/L (20-110) Urine Opiates Screen Negative (NEGATIVE) Urine Barbiturates Screen Negative (NEGATIVE) Phencyclidine (PCP) Screen Negative (NEGATIVE) Urine Amphetamines Screen Negative (NEGATIVE) Urine Benzodiazepines Screen Negative (NEGATIVE) Urine Cocaine Screen Negative (NEGATIVE) Urine Marijuana (THC) Screen Negative (NEGATIVE) Arterial Blood pH 7.490 (7.350-7.450) Arterial Blood Partial Pressure CO2 34.4 mmHg (35.0-45.0) L Arterial Blood Partial Pressure O2 86.7 mmHg (75.0-100.0) Arterial Blood HCO3 21.3 mmol/L (22.0-26.0) L Arterial Blood Oxygen Saturation 96.1 % (95-100) Arterial Blood Base Excess -2.7 (-2-2) L Juan Daniel Test Positive EKG Diagnostic Results Rate: tachycardiac ST Segments: no acute changes Rhythm Strip Diag. Results EP Interpretation: yes Rhythm: no PVC's, no ectopy, other - ST Chest X-Ray Diagnostic Results Chest X-Ray Diagnostic Results #1: Chest X-Ray Ordered: Yes # of Views/Limited/Complete: 1 View Indication: Other EP Interpretation: Yes Interpretation: no consolidation, no effusion, no pneumothorax Impression: No acute disease Electronically Signed by: Electronically signed by Zacarias Leal MD Chest X-Ray Diagnostic Results #2: Chest X-Ray Ordered: Yes # of Views/Limited/Complete: 1 View Indication: Other EP Interpretation: Yes Interpretation: no consolidation, no effusion, no pneumothorax, other - ET OK Impression: Other Electronically Signed by: Electronically signed by Zacarias Leal MD CT/MRI/US Diagnostic Results CT/MRI/US Diagnostic Results : Imaging Test Ordered: head Impression no bleed, mass + calcifications c/w cysticercosis Last Vital Signs Date Time Temp Pulse Resp B/P (MAP) Pulse Ox O2 Delivery O2 Flow Rate FiO2 08/26/18 00:52 117 18 30 08/26/18 00:00 Mechanical Ventilator 08/26/18 00:00 128/63 08/26/18 00:00 100.3 96 08/25/18 19:01 15.0 Status: improved Disposition: ADMITTED INPATIENT Condition: Critical Zacarias Leal MD Aug 25, 2018 14:09
[2018-08-25 14:33] LABS: BASOPHILS % (AUTO) 1.1 % (0.0-2.0); EOSINOPHILS % (AUTO) 0.7 % (0.0-3.0); HEMATOCRIT 33.2 % (42.0-52.0); HEMOGLOBIN 11.7 G/DL (14.2-18.0); LYMPHOCYTES % (AUTO) 12.5 % (20.0-45.0); MEAN CORPUSCULAR VOLUME 84 FL (80-99); MONOCYTES % (AUTO) 4.9 % (1.0-10.0); NEUTROPHILS % (AUTO) 80.8 % (45.0-75.0); PLATELET COUNT 441 K/UL (150-450); RED BLOOD COUNT 3.94 M/UL (4.70-6.10); RED CELL DISTRIBUTION WIDTH 10.8 % (11.6-14.8); WHITE BLOOD COUNT 13.7 K/UL (4.8-10.8)
[2018-08-25 14:49] LABS: ALANINE AMINOTRANSFERASE 29 U/L (12-78); ALBUMIN 3.4 G/DL (3.4-5.0); ALKALINE PHOSPHATASE 91 U/L (46-116); ANION GAP 12 mmol/L (5-15); ASPARTATE AMINO TRANSFERASE 22 U/L (15-37); BILIRUBIN,TOTAL 0.6 MG/DL (0.2-1.0); BLOOD UREA NITROGEN 7 mg/dL (7-18); CALCIUM 8.6 MG/DL (8.5-10.1); CARBON DIOXIDE 20 MMOL/L (21-32); CHLORIDE 85 MMOL/L (98-107); CREATINE KINASE 106 U/L (26-308); CREATININE 0.6 MG/DL (0.55-1.30); POTASSIUM 2.9 MMOL/L (3.5-5.1)
[2018-08-25 14:50] LABS: SODIUM 117 MMOL/L (136-145)
[2018-08-25] MEDS ORDERED: NaCl 3% 500ml 250 ML IV ONE (15:00)
--- NOTE | 2018-08-25 15:11 | Diagnostic Imaging Report ---
Indications: Altered level of consciousness Technique: Spiral acquisitions obtained through the brain. Angled axial and coronal 5 x 5 mm slices were reconstructed. Total dose length product 1431.85 mGycm. CTDI vol(s) 70.38 mGy. Dose reduction achieved using automated exposure control Comparison: None. Findings: There are scattered calcifications throughout the cerebral cortex as well as in the right thalamus. No acute intercranial hemorrhage nor edema. No mass effect nor midline shift. Normal phillip-white differentiation. Normal-sized ventricles and extra axial CSF spaces. Intact calvarium. Visualized orbits and sinuses are unremarkable. 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
--- NOTE | 2018-08-25 15:42 | Diagnostic Imaging Report ---
Indication: Chest pain Technique: One view of the chest Comparison: 08/20/2018 Findings: Body habitus limits evaluation. Inspiration is suboptimal, with crowding of the bronchovascular markings as a result. There is equivocal mild interstitial congestion. No effusions. No focal airspace consolidation. The heart is upper limits normal in size. Impression: Equivocal mild interstitial congestion-correlate with clinical findings No definite acute process otherwise
[2018-08-25] MEDS ORDERED: Vancomycin 1 GM in D5W 275 ML IVPB ONE (15:45)
[2018-08-25] MEDS ORDERED: LORazepam Inj 2mg/ml 1ml ONE (15:51)
[2018-08-25] MEDS ORDERED: Succinylcholine 20mg/ml 10ml vial IV ONE (16:15)
[2018-08-25] MEDS ORDERED: Etomidate 40mg/20ml Inj IV ONE (16:15)
[2018-08-25] MEDS ORDERED: Midazolam 2mg/2ml Inj IVP ONE (16:15)
[2018-08-25] MEDS ORDERED: LORazepam Inj 2mg/ml 1ml IV ONE (16:15)
--- NOTE | 2018-08-25 16:38 | Diagnostic Imaging Report ---
Indication: Post intubation Technique: One view of the chest Comparison: 08/25/2018 Findings: Interim endotracheal intubation, endotracheal tube tip in good position approximately 3 cm above the mariam. Previously questionable interstitial congestive change is not evident on the current exam. The heart size is normal. Impression: Satisfactory endotracheal intubation. Clear lungs currently
[2018-08-25 16:56] LABS: APPEARANCE,URINE CLEAR; BILIRUBIN, URINE NEGATIVE (NEGATIVE); COLOR,URINE PALE YELLOW; GLUCOSE, URINE (UA) NEGATIVE (NEGATIVE); KETONES,URINE 3+ (NEGATIVE); LEUKOCYTE ESTERASE ,URINE NEGATIVE (NEGATIVE); NITRITE,URINE NEGATIVE (NEGATIVE); PH,URINE 6 (4.5-8.0); PROTEIN,URINE NEGATIVE (NEGATIVE); UROBILINOGEN,URINE NORMAL MG/DL (0.0-1.0)
--- NOTE | 2018-08-25 18:42 | History & Physical ---
History and Physical History & Physicial 38-year-old gentleman with history of bipolar disorder and schizoaffective disorder, presented with hyponatremia altered mental status and required intubation. Patient just discharged back to the board and care yesterday PAST MEDICAL HISTORY: 1. History of bipolar disorder. 2. History of schizoaffective disorder. SOCIAL HISTORY: He is a smoker. He used to drink alcohol- currently denies. No history of drug use. FAMILY HISTORY: Noncontributory. REVIEW OF SYSTEMS: unable MEDICATIONS: reviewed ALLERGIES: No known drug allergies. PHYSICAL EXAMINATION: WDWN sedated clear breath sounds bilaterally without rhonchi or wheeze [id number] without MRG NABS nontender no HSM no CCE nonfocal Labs Test 08/25/18 14:00 08/25/18 16:25 08/25/18 17:58 White Blood Count 13.7 K/UL (4.8-10.8) Red Blood Count 3.94 M/UL (4.70-6.10) Hemoglobin 11.7 G/DL (14.2-18.0) Hematocrit 33.2 % (42.0-52.0) Mean Corpuscular Volume 84 FL (80-99) Mean Corpuscular Hemoglobin 29.7 PG (27.0-31.0) Mean Corpuscular Hemoglobin Concent 35.2 G/DL (32.0-36.0) Red Cell Distribution Width 10.8 % (11.6-14.8) Platelet Count 441 K/UL (150-450) Mean Platelet Volume 5.5 FL (6.5-10.1) Neutrophils (%) (Auto) 80.8 % (45.0-75.0) Lymphocytes (%) (Auto) 12.5 % (20.0-45.0) Monocytes (%) (Auto) 4.9 % (1.0-10.0) Eosinophils (%) (Auto) 0.7 % (0.0-3.0) Basophils (%) (Auto) 1.1 % (0.0-2.0) Sodium Level 117 MMOL/L (136-145) Potassium Level 2.9 MMOL/L (3.5-5.1) Chloride Level 85 MMOL/L (98-107) Carbon Dioxide Level 20 MMOL/L (21-32) Anion Gap 12 mmol/L (5-15) Blood Urea Nitrogen 7 mg/dL (7-18) Creatinine 0.6 MG/DL (0.55-1.30) Estimat Glomerular Filtration Rate > 60 mL/min (>60) Glucose Level 113 MG/DL (74-106) Osmolality 247 mOsm/kg (297-317) Lactic Acid Level 1.40 mmol/L (0.4-2.0) Calcium Level 8.6 MG/DL (8.5-10.1) Total Bilirubin 0.6 MG/DL (0.2-1.0) Aspartate Amino Transf (AST/SGOT) 22 U/L (15-37) Alanine Aminotransferase (ALT/SGPT) 29 U/L (12-78) Alkaline Phosphatase 91 U/L (46-116) Total Creatine Kinase 106 U/L (26-308) Troponin I 0.000 ng/mL (0.000-0.056) Total Protein 6.8 G/DL (6.4-8.2) Albumin 3.4 G/DL (3.4-5.0) Globulin 3.4 g/dL Albumin/Globulin Ratio 1.0 (1.0-2.7) Triglycerides Level 84 MG/DL (30-150) Salicylates Level 1.2 ug/mL (2.8-20) Acetaminophen Level < 2 MCG/ML (10-30) Serum Alcohol < 3 mg/dL Urine Color Pale yellow Urine Appearance Clear Urine pH 6 (4.5-8.0) Urine Specific [place] 1.010 (1.005-1.035) Urine Protein Negative (NEGATIVE) Urine Glucose (UA) Negative (NEGATIVE) Urine Ketones 3+ (NEGATIVE) Urine Blood Negative (NEGATIVE) Urine Nitrite Negative (NEGATIVE) Urine Bilirubin Negative (NEGATIVE) Urine Urobilinogen Normal MG/DL (0.0-1.0) Urine Leukocyte Esterase Negative (NEGATIVE) Urine Osmolality 291 mOsm/kg (429-449) Urine Random Sodium 93 mmol/L (20-110) Urine Opiates Screen Negative (NEGATIVE) Urine Barbiturates Screen Negative (NEGATIVE) Phencyclidine (PCP) Screen Negative (NEGATIVE) Urine Amphetamines Screen Negative (NEGATIVE) Urine Benzodiazepines Screen Negative (NEGATIVE) Urine Cocaine Screen Negative (NEGATIVE) Urine Marijuana (THC) Screen Negative (NEGATIVE) Arterial Blood pH 7.490 (7.350-7.450) Arterial Blood Partial Pressure CO2 34.4 mmHg (35.0-45.0) Arterial Blood Partial Pressure O2 86.7 mmHg (75.0-100.0) Arterial Blood HCO3 21.3 mmol/L (22.0-26.0) Arterial Blood Oxygen Saturation 96.1 % (95-100) Arterial Blood Base Excess -2.7 (-2-2) Juan Daniel Test Positive IMPRESSION hyponatremia, likely psychogenic respiratory failure acute encephalopathy psychiatric history PLAN IV hydration monitor sodium renal evaluation vent and ?wean in am psych evaluation medications/laboratory data/nursing notes/ICU care reviewed in detail note reviewed and edited care discussed with RN and RT Dilshad Greene MD Aug 25, 2018 18:42
[2018-08-25] MEDS ORDERED: LORazepam Inj 2mg/ml 1ml IV PRN (21:00)
[2018-08-25] MEDS: Heparin 5000 units/ml inj SUBQ SCH (21:45)
[2018-08-26] VITALS (31 sets, daily range): BP systolic 97–164; BP diastolic 44–84
[2018-08-26 05:46] LABS: BASOPHILS % (AUTO) 0.4 % (0.0-2.0); EOSINOPHILS % (AUTO) 0.1 % (0.0-3.0); HEMATOCRIT 34.5 % (42.0-52.0); HEMOGLOBIN 12.4 G/DL (14.2-18.0); LYMPHOCYTES % (AUTO) 13.1 % (20.0-45.0); MEAN CORPUSCULAR VOLUME 84 FL (80-99); MONOCYTES % (AUTO) 6.1 % (1.0-10.0); NEUTROPHILS % (AUTO) 80.3 % (45.0-75.0); PLATELET COUNT 465 K/UL (150-450); RED CELL DISTRIBUTION WIDTH 10.9 % (11.6-14.8)
[2018-08-26 06:21] LABS: ANION GAP 9 mmol/L (5-15); BLOOD UREA NITROGEN 3 mg/dL (7-18); CALCIUM 8.5 MG/DL (8.5-10.1); CARBON DIOXIDE 23 MMOL/L (21-32); CHLORIDE 105 MMOL/L (98-107); CREATININE 0.7 MG/DL (0.55-1.30); POTASSIUM 3.4 MMOL/L (3.5-5.1); SODIUM 137 MMOL/L (136-145)
[2018-08-26] MEDS: Heparin 5000 units/ml inj SUBQ SCH ×2 (08:49→20:10)
--- NOTE | 2018-08-26 09:05 | Critical Care Progress Note ---
Assessment/Plan Assessment/Plan IMPRESSION hyponatremia, likely psychogenic respiratory failure acute encephalopathy psychiatric history PLAN IV hydration improved sodium renal evaluation vent and wean to off today psych evaluation ? once extubated medications/laboratory data/nursing notes/ICU care reviewed in detail note reviewed and edited care discussed with RN and RT Critical Care - Subjective Interval Events: care noted lytes improved on vent ROS Limited/Unobtainable: Yes Condition: critical I&O: Intake and Output 08/25/18 08/26/18 19:00 07:00 Intake Total 2028.064 ml 1140.640 ml Output Total 7400 ml Balance 2028.064 ml -6259.360 ml Intake IV Total 2028.064 ml 1140.640 ml Output Urine Total 7400 ml # Voids 1 Critical Care - Objective ET-Tube: 7.5 ET Position: 23 Last 24 Hour Vital Signs Date Time Temp Pulse Resp B/P (MAP) Pulse Ox O2 Delivery O2 Flow Rate FiO2 08/26/18 08:45 19 124/61 Mechanical Ventilator 30 08/26/18 08:30 112 20 30 08/26/18 08:30 100 08/26/18 08:30 20 138/49 Mechanical Ventilator 30 08/26/18 08:30 30 08/26/18 08:15 14 103/70 Mechanical Ventilator 30 08/26/18 08:00 18 103/70 Mechanical Ventilator 30 08/26/18 08:00 Mechanical Ventilator 08/26/18 08:00 30 08/26/18 07:45 100.3 102 14 99/44 (62) 97 08/26/18 07:45 15 99/44 Mechanical Ventilator 30 08/26/18 07:30 104 16 103/46 (65) 98 08/26/18 07:30 16 103/46 Mechanical Ventilator 30 08/26/18 07:15 109 18 30 08/26/18 07:00 106 14 98/45 (62) 97 08/26/18 07:00 15 98/45 Mechanical Ventilator 30 08/26/18 06:00 110 15 97/46 (63) 98 08/26/18 06:00 15 97/46 Mechanical Ventilator 30 08/26/18 05:10 117 17 30 08/26/18 05:00 115 15 121/54 (76) 99 08/26/18 05:00 23 121/54 Mechanical Ventilator 30 08/26/18 04:03 14 124/61 Mechanical Ventilator 30 08/26/18 04:00 Mechanical Ventilator 08/26/18 04:00 118 08/26/18 04:00 30 08/26/18 04:00 100.4 118 14 124/61 (82) 97 08/26/18 03:00 16 125/64 Mechanical Ventilator 30 08/26/18 03:00 121 16 125/64 (84) 97 08/26/18 02:57 120 17 30 08/26/18 02:00 19 129/62 Mechanical Ventilator 30 08/26/18 02:00 116 19 129/62 (84) 96 08/26/18 01:00 17 132/68 Mechanical Ventilator 30 08/26/18 01:00 116 13 134/67 (89) 96 08/26/18 00:52 117 18 30 08/26/18 00:00 Mechanical Ventilator 08/26/18 00:00 115 08/26/18 00:00 30 08/26/18 00:00 18 128/63 Mechanical Ventilator 30 08/26/18 00:00 100.3 115 18 116/78 (91) 96 08/25/18 23:30 114 16 128/63 (84) 97 08/25/18 23:10 115 15 30 08/25/18 23:00 115 18 157/61 (93) 97 08/25/18 23:00 15 157/61 Mechanical Ventilator 30 08/25/18 22:30 123 20 148/65 (92) 97 08/25/18 22:00 114 17 152/68 (96) 97 08/25/18 21:43 16 141/60 Mechanical Ventilator 30 08/25/18 21:41 30 08/25/18 21:30 119 24 145/62 (89) 97 08/25/18 21:11 111 20 30 08/25/18 21:00 19 172/71 Mechanical Ventilator 30 08/25/18 21:00 117 22 141/60 (87) 98 08/25/18 20:30 113 21 172/71 (104) 98 08/25/18 20:00 Mechanical Ventilator 08/25/18 20:00 112 23 157/62 (93) 97 08/25/18 20:00 112 08/25/18 20:00 23 151/63 Mechanical Ventilator 30 08/25/18 19:57 Mechanical Ventilator 08/25/18 19:30 113 23 151/63 (92) 98 08/25/18 19:01 99.1 108 28 122/58 99 Mechanical Ventilator 15.0 30 08/25/18 19:00 99.0 108 19 134/64 (87) 97 08/25/18 19:00 18 138/80 Mechanical Ventilator 30 08/25/18 18:45 118 28 30 08/25/18 18:00 108 18 122/58 99 Mechanical Ventilator 30 08/25/18 18:00 18 122/58 Mechanical Ventilator 30 08/25/18 18:00 18 122/58 Mechanical Ventilator 30 08/25/18 17:45 99.1 110 16 113/66 99 Mechanical Ventilator 30 08/25/18 17:45 16 113/66 Mechanical Ventilator 30 08/25/18 17:30 110 16 126/71 99 Mechanical Ventilator 30 08/25/18 17:30 16 126/71 Mechanical Ventilator 30 08/25/18 17:30 16 126/71 Mechanical Ventilator 30 08/25/18 17:15 105 15 133/72 99 Mechanical Ventilator 30 08/25/18 17:15 16 133/72 Mechanical Ventilator 30 08/25/18 17:00 110 20 126/73 99 Mechanical Ventilator 30 08/25/18 17:00 18 126/73 Mechanical Ventilator 15.0 30 08/25/18 16:45 15 131/69 Mechanical Ventilator 15.0 30 08/25/18 16:45 99.1 115 15 131/69 96 Mechanical Ventilator 30 08/25/18 16:37 114 26 30 08/25/18 16:30 24 162/81 Mechanical Ventilator 30 08/25/18 16:30 99.1 115 24 162/81 96 Mechanical Ventilator 30 08/25/18 16:20 15.0 30 08/25/18 15:32 115 37 143/78 96 Room Air 08/25/18 13:41 140 18 Room Air 08/25/18 13:41 99.1 133 18 144/80 95 Room Air 08/25/18 13:28 99.1 140 18 144/80 95 Room Air Labs: Labs Test 08/25/18 14:00 08/25/18 16:25 08/25/18 17:58 08/26/18 04:29 White Blood Count 13.7 K/UL (4.8-10.8) 10.0 K/UL (4.8-10.8) Red Blood Count 3.94 M/UL (4.70-6.10) 4.10 M/UL (4.70-6.10) Hemoglobin 11.7 G/DL (14.2-18.0) 12.4 G/DL (14.2-18.0) Hematocrit 33.2 % (42.0-52.0) 34.5 % (42.0-52.0) Mean Corpuscular Volume 84 FL (80-99) 84 FL (80-99) Mean Corpuscular Hemoglobin 29.7 PG (27.0-31.0) 30.2 PG (27.0-31.0) Mean Corpuscular Hemoglobin Concent 35.2 G/DL (32.0-36.0) 36.0 G/DL (32.0-36.0) Red Cell Distribution Width 10.8 % (11.6-14.8) 10.9 % (11.6-14.8) Platelet Count 441 K/UL (150-450) 465 K/UL (150-450) Mean Platelet Volume 5.5 FL (6.5-10.1) 5.5 FL (6.5-10.1) Neutrophils (%) (Auto) 80.8 % (45.0-75.0) 80.3 % (45.0-75.0) Lymphocytes (%) (Auto) 12.5 % (20.0-45.0) 13.1 % (20.0-45.0) Monocytes (%) (Auto) 4.9 % (1.0-10.0) 6.1 % (1.0-10.0) Eosinophils (%) (Auto) 0.7 % (0.0-3.0) 0.1 % (0.0-3.0) Basophils (%) (Auto) 1.1 % (0.0-2.0) 0.4 % (0.0-2.0) Sodium Level 117 MMOL/L (136-145) 137 MMOL/L (136-145) Potassium Level 2.9 MMOL/L (3.5-5.1) 3.4 MMOL/L (3.5-5.1) Chloride Level 85 MMOL/L (98-107) 105 MMOL/L (98-107) Carbon Dioxide Level 20 MMOL/L (21-32) 23 MMOL/L (21-32) Anion Gap 12 mmol/L (5-15) 9 mmol/L (5-15) Blood Urea Nitrogen 7 mg/dL (7-18) 3 mg/dL (7-18) Creatinine 0.6 MG/DL (0.55-1.30) 0.7 MG/DL (0.55-1.30) Estimat Glomerular Filtration Rate > 60 mL/min (>60) > 60 mL/min (>60) Glucose Level 113 MG/DL (74-106) 99 MG/DL (74-106) Osmolality 247 mOsm/kg (297-317) Lactic Acid Level 1.40 mmol/L (0.4-2.0) Calcium Level 8.6 MG/DL (8.5-10.1) 8.5 MG/DL (8.5-10.1) Total Bilirubin 0.6 MG/DL (0.2-1.0) Aspartate Amino Transf (AST/SGOT) 22 U/L (15-37) Alanine Aminotransferase (ALT/SGPT) 29 U/L (12-78) Alkaline Phosphatase 91 U/L (46-116) Total Creatine Kinase 106 U/L (26-308) Troponin I 0.000 ng/mL (0.000-0.056) Total Protein 6.8 G/DL (6.4-8.2) Albumin 3.4 G/DL (3.4-5.0) Globulin 3.4 g/dL Albumin/Globulin Ratio 1.0 (1.0-2.7) Triglycerides Level 84 MG/DL (30-150) Salicylates Level 1.2 ug/mL (2.8-20) Acetaminophen Level < 2 MCG/ML (10-30) Serum Alcohol < 3 mg/dL Urine Color Pale yellow Urine Appearance Clear Urine pH 6 (4.5-8.0) Urine Specific [place] 1.010 (1.005-1.035) Urine Protein Negative (NEGATIVE) Urine Glucose (UA) Negative (NEGATIVE) Urine Ketones 3+ (NEGATIVE) Urine Blood Negative (NEGATIVE) Urine Nitrite Negative (NEGATIVE) Urine Bilirubin Negative (NEGATIVE) Urine Urobilinogen Normal MG/DL (0.0-1.0) Urine Leukocyte Esterase Negative (NEGATIVE) Urine Osmolality 291 mOsm/kg (429-449) Urine Random Sodium 93 mmol/L (20-110) Urine Opiates Screen Negative (NEGATIVE) Urine Barbiturates Screen Negative (NEGATIVE) Phencyclidine (PCP) Screen Negative (NEGATIVE) Urine Amphetamines Screen Negative (NEGATIVE) Urine Benzodiazepines Screen Negative (NEGATIVE) Urine Cocaine Screen Negative (NEGATIVE) Urine Marijuana (THC) Screen Negative (NEGATIVE) Arterial Blood pH 7.490 (7.350-7.450) Arterial Blood Partial Pressure CO2 34.4 mmHg (35.0-45.0) Arterial Blood Partial Pressure O2 86.7 mmHg (75.0-100.0) Arterial Blood HCO3 21.3 mmol/L (22.0-26.0) Arterial Blood Oxygen Saturation 96.1 % (95-100) Arterial Blood Base Excess -2.7 (-2-2) Juan Daniel Test Positive Test 08/26/18 07:15 Arterial Blood pH 7.447 (7.350-7.450) Arterial Blood Partial Pressure CO2 32.7 mmHg (35.0-45.0) Arterial Blood Partial Pressure O2 83.3 mmHg (75.0-100.0) Arterial Blood HCO3 22.1 mmol/L (22.0-26.0) Arterial Blood Oxygen Saturation 96.1 % (95-100) Arterial Blood Base Excess -1.3 (-2-2) Juan Daniel Test Positive Objective: WDWN NAD on vent clear breath sounds bilaterally without rhonchi or wheeze [id number] without MRG NABS nontender no HSM no CCE sedated Accucheck: 119 Dilshad Greene MD Aug 26, 2018 09:05
--- NOTE | 2018-08-26 09:18 | Diagnostic Imaging Report ---
Indication: Dyspnea Technique: One view of the chest Comparison: 08/25/2018 Findings: Endotracheal tube projects just above the mariam. There is New finding of subsegmental atelectasis at the left lung base. The lungs and pleural spaces are otherwise clear. Heart size is normal. Impression: Left basilar subsegmental atelectasis. Otherwise little exchange engineer one day
[2018-08-26] MEDS ORDERED: Haloperidol 5mg/ml Inj IM PRN ×3 (11:30→17:30)
--- NOTE | 2018-08-26 11:31 | Consultation ---
History of Present Illness General Date patient seen: Aug 26, 2018 Chief Complaint: General Complaint Present Illness HPI 38-year-old gentleman with history of bipolar disorder and schizoaffective disorder, presented with hyponatremia altered mental status and was intubated. the pt has been agitationand confused. unable to provide hx Allergies: Coded Allergies: No Known Allergies (Unverified , 08/20/18) Medication History Scheduled Asenapine Maleate (Saphris), 10 MG SL BID, (Reported) Citalopram Hydrobromide* (Citalopram Hbr*), 30 MG ORAL DAILY, (Reported) Olanzapine (Olanzapine Odt), 20 MG PO BID, (Reported) Patient History Limited by: medical condition History Provided By: Patient, Medical Record Healthcare decision maker mother Quiroz Resuscitation status Full Code Advanced Directive on File No Past Medical/Surgical History Past Medical/Surgical History: (1) Seizure (2) Weakness generalized (3) Leukocytosis (4) Atypical seizure (5) Hypokalemia (6) Hyponatremia (7) Altered level of consciousness Review of Systems Psychiatric: Reports: anxiety, depressed feelings, emotional problems, hallucinations Physical Exam General Appearance: alert, confused, agitated Last 24 Hour Vital Signs Date Time Temp Pulse Resp B/P (MAP) Pulse Ox O2 Delivery O2 Flow Rate FiO2 08/26/18 11:00 103 17 129/73 (91) 100 08/26/18 10:30 2.0 08/26/18 10:00 116 27 139/54 (82) 98 08/26/18 09:50 3.5 08/26/18 09:50 Nasal Cannula 2.0 08/26/18 09:50 Nasal Cannula 3.0 32 08/26/18 09:30 125 19 138/69 (92) 100 08/26/18 09:15 99.9 114 21 137/65 (89) 95 08/26/18 09:00 119 20 128/49 (75) 99 08/26/18 08:45 19 124/61 Mechanical Ventilator 30 08/26/18 08:45 115 22 124/61 (82) 100 08/26/18 08:30 118 25 138/49 (78) 100 08/26/18 08:30 112 20 30 08/26/18 08:30 100 08/26/18 08:30 20 138/49 Mechanical Ventilator 30 08/26/18 08:30 30 08/26/18 08:15 113 23 121/69 (86) 99 08/26/18 08:15 14 103/70 Mechanical Ventilator 30 08/26/18 08:00 98 14 103/70 (81) 98 08/26/18 08:00 18 103/70 Mechanical Ventilator 30 08/26/18 08:00 Mechanical Ventilator 08/26/18 08:00 30 08/26/18 07:53 100 08/26/18 07:45 100.3 102 14 99/44 (62) 97 08/26/18 07:45 15 99/44 Mechanical Ventilator 30 08/26/18 07:30 104 16 103/46 (65) 98 08/26/18 07:30 16 103/46 Mechanical Ventilator 30 08/26/18 07:15 109 18 30 08/26/18 07:00 106 14 98/45 (62) 97 08/26/18 07:00 15 98/45 Mechanical Ventilator 30 08/26/18 06:00 110 15 97/46 (63) 98 08/26/18 06:00 15 97/46 Mechanical Ventilator 30 08/26/18 05:10 117 17 30 08/26/18 05:00 115 15 121/54 (76) 99 08/26/18 05:00 23 121/54 Mechanical Ventilator 30 08/26/18 04:03 14 124/61 Mechanical Ventilator 30 08/26/18 04:00 Mechanical Ventilator 08/26/18 04:00 118 08/26/18 04:00 30 08/26/18 04:00 100.4 118 14 124/61 (82) 97 08/26/18 03:00 16 125/64 Mechanical Ventilator 30 08/26/18 03:00 121 16 125/64 (84) 97 08/26/18 02:57 120 17 30 08/26/18 02:00 19 129/62 Mechanical Ventilator 30 08/26/18 02:00 116 19 129/62 (84) 96 08/26/18 01:00 17 132/68 Mechanical Ventilator 30 08/26/18 01:00 116 13 134/67 (89) 96 08/26/18 00:52 117 18 30 08/26/18 00:00 Mechanical Ventilator 08/26/18 00:00 115 08/26/18 00:00 30 08/26/18 00:00 18 128/63 Mechanical Ventilator 30 08/26/18 00:00 100.3 115 18 116/78 (91) 96 08/25/18 23:30 114 16 128/63 (84) 97 08/25/18 23:10 115 15 30 08/25/18 23:00 115 18 157/61 (93) 97 08/25/18 23:00 15 157/61 Mechanical Ventilator 30 08/25/18 22:30 123 20 148/65 (92) 97 08/25/18 22:00 114 17 152/68 (96) 97 08/25/18 21:43 16 141/60 Mechanical Ventilator 30 08/25/18 21:41 30 08/25/18 21:30 119 24 145/62 (89) 97 08/25/18 21:11 111 20 30 08/25/18 21:00 19 172/71 Mechanical Ventilator 30 08/25/18 21:00 117 22 141/60 (87) 98 08/25/18 20:30 113 21 172/71 (104) 98 08/25/18 20:00 Mechanical Ventilator 08/25/18 20:00 112 23 157/62 (93) 97 08/25/18 20:00 112 08/25/18 20:00 23 151/63 Mechanical Ventilator 30 08/25/18 19:57 Mechanical Ventilator 08/25/18 19:30 113 23 151/63 (92) 98 08/25/18 19:01 99.1 108 28 122/58 99 Mechanical Ventilator 15.0 30 08/25/18 19:00 99.0 108 19 134/64 (87) 97 08/25/18 19:00 18 138/80 Mechanical Ventilator 30 08/25/18 18:45 118 28 30 08/25/18 18:00 108 18 122/58 99 Mechanical Ventilator 30 08/25/18 18:00 18 122/58 Mechanical Ventilator 30 08/25/18 18:00 18 122/58 Mechanical Ventilator 30 08/25/18 17:45 99.1 110 16 113/66 99 Mechanical Ventilator 30 08/25/18 17:45 16 113/66 Mechanical Ventilator 30 08/25/18 17:30 110 16 126/71 99 Mechanical Ventilator 30 08/25/18 17:30 16 126/71 Mechanical Ventilator 30 08/25/18 17:30 16 126/71 Mechanical Ventilator 30 08/25/18 17:15 105 15 133/72 99 Mechanical Ventilator 30 08/25/18 17:15 16 133/72 Mechanical Ventilator 30 08/25/18 17:00 110 20 126/73 99 Mechanical Ventilator 30 08/25/18 17:00 18 126/73 Mechanical Ventilator 15.0 30 08/25/18 16:45 15 131/69 Mechanical Ventilator 15.0 30 08/25/18 16:45 99.1 115 15 131/69 96 Mechanical Ventilator 30 08/25/18 16:37 114 26 30 08/25/18 16:30 24 162/81 Mechanical Ventilator 30 08/25/18 16:30 99.1 115 24 162/81 96 Mechanical Ventilator 30 08/25/18 16:20 15.0 30 08/25/18 15:32 115 37 143/78 96 Room Air 08/25/18 13:41 140 18 Room Air 08/25/18 13:41 99.1 133 18 144/80 95 Room Air 08/25/18 13:28 99.1 140 18 144/80 95 Room Air Intake and Output 08/25/18 08/26/18 19:00 07:00 Intake Total 2028.064 ml 1140.640 ml Output Total 7400 ml Balance 2028.064 ml -6259.360 ml Intake IV Total 2028.064 ml 1140.640 ml Output Urine Total 7400 ml # Voids 1 Laboratory Tests Test 08/25/18 14:00 08/25/18 16:25 08/25/18 17:58 08/26/18 04:29 White Blood Count 13.7 K/UL (4.8-10.8) H 10.0 K/UL (4.8-10.8) Red Blood Count 3.94 M/UL (4.70-6.10) L 4.10 M/UL (4.70-6.10) L Hemoglobin 11.7 G/DL (14.2-18.0) L 12.4 G/DL (14.2-18.0) L Hematocrit 33.2 % (42.0-52.0) L 34.5 % (42.0-52.0) L Mean Corpuscular Volume 84 FL (80-99) 84 FL (80-99) Mean Corpuscular Hemoglobin 29.7 PG (27.0-31.0) 30.2 PG (27.0-31.0) Mean Corpuscular Hemoglobin Concent 35.2 G/DL (32.0-36.0) 36.0 G/DL (32.0-36.0) Red Cell Distribution Width 10.8 % (11.6-14.8) L 10.9 % (11.6-14.8) L Platelet Count 441 K/UL (150-450) 465 K/UL (150-450) H Mean Platelet Volume 5.5 FL (6.5-10.1) L 5.5 FL (6.5-10.1) L Neutrophils (%) (Auto) 80.8 % (45.0-75.0) H 80.3 % (45.0-75.0) H Lymphocytes (%) (Auto) 12.5 % (20.0-45.0) L 13.1 % (20.0-45.0) L Monocytes (%) (Auto) 4.9 % (1.0-10.0) 6.1 % (1.0-10.0) Eosinophils (%) (Auto) 0.7 % (0.0-3.0) 0.1 % (0.0-3.0) Basophils (%) (Auto) 1.1 % (0.0-2.0) 0.4 % (0.0-2.0) Sodium Level 117 MMOL/L (136-145) *L 137 MMOL/L (136-145) # Potassium Level 2.9 MMOL/L (3.5-5.1) L 3.4 MMOL/L (3.5-5.1) L Chloride Level 85 MMOL/L (98-107) L 105 MMOL/L (98-107) Carbon Dioxide Level 20 MMOL/L (21-32) L 23 MMOL/L (21-32) Anion Gap 12 mmol/L (5-15) 9 mmol/L (5-15) Blood Urea Nitrogen 7 mg/dL (7-18) 3 mg/dL (7-18) L Creatinine 0.6 MG/DL (0.55-1.30) 0.7 MG/DL (0.55-1.30) Estimat Glomerular Filtration Rate > 60 mL/min (>60) > 60 mL/min (>60) Glucose Level 113 MG/DL (74-106) H 99 MG/DL (74-106) Osmolality 247 mOsm/kg (297-317) L Lactic Acid Level 1.40 mmol/L (0.4-2.0) Calcium Level 8.6 MG/DL (8.5-10.1) 8.5 MG/DL (8.5-10.1) Total Bilirubin 0.6 MG/DL (0.2-1.0) Aspartate Amino Transf (AST/SGOT) 22 U/L (15-37) Alanine Aminotransferase (ALT/SGPT) 29 U/L (12-78) Alkaline Phosphatase 91 U/L (46-116) Total Creatine Kinase 106 U/L (26-308) Troponin I 0.000 ng/mL (0.000-0.056) Total Protein 6.8 G/DL (6.4-8.2) Albumin 3.4 G/DL (3.4-5.0) Globulin 3.4 g/dL Albumin/Globulin Ratio 1.0 (1.0-2.7) Triglycerides Level 84 MG/DL (30-150) Salicylates Level 1.2 ug/mL (2.8-20) L Acetaminophen Level < 2 MCG/ML (10-30) L Serum Alcohol < 3 mg/dL Urine Color Pale yellow Urine Appearance Clear Urine pH 6 (4.5-8.0) Urine Specific [place] 1.010 (1.005-1.035) Urine Protein Negative (NEGATIVE) Urine Glucose (UA) Negative (NEGATIVE) Urine Ketones 3+ (NEGATIVE) H Urine Blood Negative (NEGATIVE) Urine Nitrite Negative (NEGATIVE) Urine Bilirubin Negative (NEGATIVE) Urine Urobilinogen Normal MG/DL (0.0-1.0) Urine Leukocyte Esterase Negative (NEGATIVE) Urine Osmolality 291 mOsm/kg (429-449) L Urine Random Sodium 93 mmol/L (20-110) Urine Opiates Screen Negative (NEGATIVE) Urine Barbiturates Screen Negative (NEGATIVE) Phencyclidine (PCP) Screen Negative (NEGATIVE) Urine Amphetamines Screen Negative (NEGATIVE) Urine Benzodiazepines Screen Negative (NEGATIVE) Urine Cocaine Screen Negative (NEGATIVE) Urine Marijuana (THC) Screen Negative (NEGATIVE) Arterial Blood pH 7.490 (7.350-7.450) Arterial Blood Partial Pressure CO2 34.4 mmHg (35.0-45.0) L Arterial Blood Partial Pressure O2 86.7 mmHg (75.0-100.0) Arterial Blood HCO3 21.3 mmol/L (22.0-26.0) L Arterial Blood Oxygen Saturation 96.1 % (95-100) Arterial Blood Base Excess -2.7 (-2-2) L Juan Daniel Test Positive Test 08/26/18 07:15 08/26/18 09:20 Arterial Blood pH 7.447 (7.350-7.450) 7.447 (7.350-7.450) Arterial Blood Partial Pressure CO2 32.7 mmHg (35.0-45.0) L 34.5 mmHg (35.0-45.0) L Arterial Blood Partial Pressure O2 83.3 mmHg (75.0-100.0) 81.1 mmHg (75.0-100.0) Arterial Blood HCO3 22.1 mmol/L (22.0-26.0) 23.3 mmol/L (22.0-26.0) Arterial Blood Oxygen Saturation 96.1 % (95-100) 95.9 % (95-100) Arterial Blood Base Excess -1.3 (-2-2) -0.2 (-2-2) Juan Daniel Test Positive Positive Height (Feet): 5 Height (Inches): 5.00 Weight (Pounds): 173 Medications Current Medications Medications (Trade) Dose Ordered Sig/Yohannes Route PRN Reason Start Time Stop Time Status Last Admin Dose Admin Heparin Sodium (Porcine) (Heparin 5000 units/ml) 5,000 units EVERY 12 HOURS SUBQ 08/25/18 21:00 09/24/18 20:59 08/26/18 08:49 Lorazepam (Ativan 2mg/ml 1ml) 1 mg Q3H PRN IV For Anxiety 08/25/18 21:00 09/01/18 20:59 Propofol 100 ml @ 0 mls/hr Q24H IV 08/25/18 21:00 08/27/18 20:59 08/26/18 04:03 Sodium Chloride 1,000 ml @ 100 mls/hr Q10H IV 08/25/18 21:00 09/24/18 20:59 08/26/18 04:55 Assessment/Plan Problem List: (1) Encephalopathy due to metabolic factor or toxin SNOMED: 853471058 (2) Schizoaffective disorder ICD Codes: F25.9 - Schizoaffective disorder, unspecified SNOMED: 01386329 Status: stable Assessment/Plan Risperdal 2mg qhs haldoyesenia im Reddy Badillo MD Aug 26, 2018 11:31
[2018-08-26] MEDS ORDERED: LORazepam Inj 2mg/ml 1ml IV PRN ×2 (13:15→17:00)
[2018-08-27] VITALS (7 sets, daily range): BP systolic 120–131; BP diastolic 70–78
[2018-08-27] MEDS: Heparin 5000 units/ml inj SUBQ SCH (09:20)
--- NOTE | 2018-08-27 14:40 | Pulmonology Progress Note ---
Assessment/Plan Assessment/Plan Assessment/Plan IMPRESSION hyponatremia, likely psychogenic respiratory failure resolved acute encephalopathy psychiatric history PLAN fluid resytrict improved sodium renal evaluation psych evaluation medications/laboratory data/nursing notes/ICU care reviewed in detail note reviewed and edited care discussed with RN and RT Critical Care - Subjective Interval Events: care noted lytes improved on vent ROS Limited/Unobtainable: Yes Labs Test 08/25/18 14:00 08/25/18 16:25 08/25/18 17:58 08/26/18 04:29 White Blood Count 13.7 K/UL (4.8-10.8) 10.0 K/UL (4.8-10.8) Red Blood Count 3.94 M/UL (4.70-6.10) 4.10 M/UL (4.70-6.10) Hemoglobin 11.7 G/DL (14.2-18.0) 12.4 G/DL (14.2-18.0) Hematocrit 33.2 % (42.0-52.0) 34.5 % (42.0-52.0) Mean Corpuscular Volume 84 FL (80-99) 84 FL (80-99) Mean Corpuscular Hemoglobin 29.7 PG (27.0-31.0) 30.2 PG (27.0-31.0) Mean Corpuscular Hemoglobin Concent 35.2 G/DL (32.0-36.0) 36.0 G/DL (32.0-36.0) Red Cell Distribution Width 10.8 % (11.6-14.8) 10.9 % (11.6-14.8) Platelet Count 441 K/UL (150-450) 465 K/UL (150-450) Mean Platelet Volume 5.5 FL (6.5-10.1) 5.5 FL (6.5-10.1) Neutrophils (%) (Auto) 80.8 % (45.0-75.0) 80.3 % (45.0-75.0) Lymphocytes (%) (Auto) 12.5 % (20.0-45.0) 13.1 % (20.0-45.0) Monocytes (%) (Auto) 4.9 % (1.0-10.0) 6.1 % (1.0-10.0) Eosinophils (%) (Auto) 0.7 % (0.0-3.0) 0.1 % (0.0-3.0) Basophils (%) (Auto) 1.1 % (0.0-2.0) 0.4 % (0.0-2.0) Sodium Level 117 MMOL/L (136-145) 137 MMOL/L (136-145) Potassium Level 2.9 MMOL/L (3.5-5.1) 3.4 MMOL/L (3.5-5.1) Chloride Level 85 MMOL/L (98-107) 105 MMOL/L (98-107) Carbon Dioxide Level 20 MMOL/L (21-32) 23 MMOL/L (21-32) Anion Gap 12 mmol/L (5-15) 9 mmol/L (5-15) Blood Urea Nitrogen 7 mg/dL (7-18) 3 mg/dL (7-18) Creatinine 0.6 MG/DL (0.55-1.30) 0.7 MG/DL (0.55-1.30) Estimat Glomerular Filtration Rate > 60 mL/min (>60) > 60 mL/min (>60) Glucose Level 113 MG/DL (74-106) 99 MG/DL (74-106) Osmolality 247 mOsm/kg (297-317) Lactic Acid Level 1.40 mmol/L (0.4-2.0) Calcium Level 8.6 MG/DL (8.5-10.1) 8.5 MG/DL (8.5-10.1) Total Bilirubin 0.6 MG/DL (0.2-1.0) Aspartate Amino Transf (AST/SGOT) 22 U/L (15-37) Alanine Aminotransferase (ALT/SGPT) 29 U/L (12-78) Alkaline Phosphatase 91 U/L (46-116) Total Creatine Kinase 106 U/L (26-308) Troponin I 0.000 ng/mL (0.000-0.056) Total Protein 6.8 G/DL (6.4-8.2) Albumin 3.4 G/DL (3.4-5.0) Globulin 3.4 g/dL Albumin/Globulin Ratio 1.0 (1.0-2.7) Triglycerides Level 84 MG/DL (30-150) Salicylates Level 1.2 ug/mL (2.8-20) Acetaminophen Level < 2 MCG/ML (10-30) Serum Alcohol < 3 mg/dL Urine Color Pale yellow Urine Appearance Clear Urine pH 6 (4.5-8.0) Urine Specific [place] 1.010 (1.005-1.035) Urine Protein Negative (NEGATIVE) Urine Glucose (UA) Negative (NEGATIVE) Urine Ketones 3+ (NEGATIVE) Urine Blood Negative (NEGATIVE) Urine Nitrite Negative (NEGATIVE) Urine Bilirubin Negative (NEGATIVE) Urine Urobilinogen Normal MG/DL (0.0-1.0) Urine Leukocyte Esterase Negative (NEGATIVE) Urine Osmolality 291 mOsm/kg (429-449) Urine Random Sodium 93 mmol/L (20-110) Urine Opiates Screen Negative (NEGATIVE) Urine Barbiturates Screen Negative (NEGATIVE) Phencyclidine (PCP) Screen Negative (NEGATIVE) Urine Amphetamines Screen Negative (NEGATIVE) Urine Benzodiazepines Screen Negative (NEGATIVE) Urine Cocaine Screen Negative (NEGATIVE) Urine Marijuana (THC) Screen Negative (NEGATIVE) Arterial Blood pH 7.490 (7.350-7.450) Arterial Blood Partial Pressure CO2 34.4 mmHg (35.0-45.0) Arterial Blood Partial Pressure O2 86.7 mmHg (75.0-100.0) Arterial Blood HCO3 21.3 mmol/L (22.0-26.0) Arterial Blood Oxygen Saturation 96.1 % (95-100) Arterial Blood Base Excess -2.7 (-2-2) Juan Daniel Test Positive Test 08/26/18 07:15 Arterial Blood pH 7.447 (7.350-7.450) Arterial Blood Partial Pressure CO2 32.7 mmHg (35.0-45.0) Arterial Blood Partial Pressure O2 83.3 mmHg (75.0-100.0) Arterial Blood HCO3 22.1 mmol/L (22.0-26.0) Arterial Blood Oxygen Saturation 96.1 % (95-100) Arterial Blood Base Excess -1.3 (-2-2) Juan Daniel Test Positive Objective: WDWN NAD clear breath sounds bilaterally without rhonchi or wheeze [id number] without MRG NABS nontender no HSM no CCE Subjective ROS Limited/Unobtainable: No Allergies: Coded Allergies: No Known Allergies (Unverified , 08/20/18) Objective Last 24 Hour Vital Signs Date Time Temp Pulse Resp B/P (MAP) Pulse Ox O2 Delivery O2 Flow Rate FiO2 08/27/18 12:00 98.0 96 20 120/78 (92) 96 08/27/18 09:00 Nasal Cannula 2.0 Nasal Cannula 2.0 08/27/18 08:00 97.0 100 20 131/76 (94) 98 08/27/18 07:38 98 Nasal Cannula 2.0 28 08/27/18 07:38 Nasal Cannula 2.0 28 08/27/18 04:00 98.2 100 18 130/77 (94) 97 08/27/18 00:01 97.4 103 18 127/73 (91) 97 08/26/18 20:21 Nasal Cannula 2.0 Nasal Cannula 2.0 08/26/18 20:00 98.2 102 18 136/82 (100) 96 08/26/18 18:46 Nasal Cannula 2.0 28 08/26/18 18:46 97 Nasal Cannula 2.0 28 08/26/18 17:30 99.9 109 20 115/77 (90) 96 08/26/18 17:00 100 16 114/84 (94) 98 08/26/18 16:00 2.0 08/26/18 16:00 Nasal Cannula 2.0 Nasal Cannula 2.0 08/26/18 16:00 105 20 164/69 (100) 99 08/26/18 15:41 104 08/26/18 15:00 107 22 138/68 (91) 98 Intake and Output 08/26/18 08/27/18 19:00 07:00 Intake Total 1124.716 ml 2110 ml Output Total 1630 ml 1500 ml Balance -505.284 ml 610 ml Intake Oral 10 ml 1010 ml IV Total 1114.716 ml 1100 ml Output Urine Total 1630 ml 1500 ml # Bowel Movements 2 4 Microbiology Date/Time Source Procedure Growth Status 08/25/18 14:15 Blood Blood Culture - Preliminary NO GROWTH AFTER 24 HOURS Resulted 08/25/18 14:00 Blood Blood Culture - Preliminary NO GROWTH AFTER 24 HOURS Resulted 08/25/18 16:25 Nasal Nares MRSA Culture - Final NO METHICILLIN RESISTANT STAPH AUREUS... Complete 08/25/18 16:25 Rectum VRE Culture - Final NO VANCOMYCIN RESISTANT ENTEROCOCCUS ... Complete 08/25/18 16:25 Rectum - Final NO CARBAPENEM-RESISTANT ENTEROBACTERI... Complete Current Medications Medications (Trade) Dose Ordered Sig/Yohannes Route PRN Reason Start Time Stop Time Status Last Admin Dose Admin Acetaminophen (Tylenol) 650 mg Q4H PRN ORAL Mild Pain/Temp > 100.5 08/26/18 20:00 09/25/18 15:59 Haloperidol Lactate (Haldol) 10 mg Q6H PRN IM Agitation 08/26/18 17:30 09/25/18 17:29 Heparin Sodium (Porcine) (Heparin 5000 units/ml) 5,000 units EVERY 12 HOURS SUBQ 08/26/18 21:00 09/24/18 20:59 08/27/18 09:20 Lorazepam (Ativan 2mg/ml 1ml) 2 mg Q6H PRN IV For Anxiety 08/26/18 17:00 09/02/18 16:59 Risperidone (RisperDAL) 2 mg BEDTIME ORAL 08/26/18 21:00 09/25/18 20:59 08/26/18 20:09 Zacarias Treviño MD Aug 27, 2018 14:40
[2018-08-27] MEDS ORDERED: RISPERDAL2 MG ORAL (16:58)
[2018-08-27] MEDS ORDERED: Tubing IV Secondary IV ONE (19:49)
[2018-08-27] MEDS ORDERED: D5W 275ml ONE (19:49)
--- NOTE | 2018-08-27 20:46 | General Progress Note ---
Assessment/Plan Problem List: (1) Encephalopathy due to metabolic factor or toxin SNOMED: 425244421 (2) Schizoaffective disorder ICD Codes: F25.9 - Schizoaffective disorder, unspecified SNOMED: 22963959 Status: stable, progressing Assessment/Plan Risperdal 2mg qhs haldol im ativan im Subjective Date patient seen: Aug 27, 2018 Neurologic/Psychiatric: Reports: anxiety, depressed, emotional problems Allergies: Coded Allergies: No Known Allergies (Unverified , 08/20/18) Objective Last 24 Hour Vital Signs Date Time Temp Pulse Resp B/P (MAP) Pulse Ox O2 Delivery O2 Flow Rate FiO2 08/27/18 16:00 97.6 70 21 121/70 (87) 97 08/27/18 12:00 98.0 96 20 120/78 (92) 96 08/27/18 09:00 Nasal Cannula 2.0 Nasal Cannula 2.0 08/27/18 08:00 97.0 100 20 131/76 (94) 98 08/27/18 07:38 98 Nasal Cannula 2.0 28 08/27/18 07:38 Nasal Cannula 2.0 28 08/27/18 04:00 98.2 100 18 130/77 (94) 97 08/27/18 00:01 97.4 103 18 127/73 (91) 97 Intake and Output 08/26/18 08/27/18 19:00 07:00 Intake Total 1124.716 ml 2110 ml Output Total 1630 ml 1500 ml Balance -505.284 ml 610 ml Intake Oral 10 ml 1010 ml IV Total 1114.716 ml 1100 ml Output Urine Total 1630 ml 1500 ml # Bowel Movements 2 4 Height (Feet): 5 Height (Inches): 5.00 Weight (Pounds): 170 General Appearance: no apparent distress, alert Neurologic: oriented x 3, responsive Reddy Delgado MD Aug 27, 2018 20:46
--- NOTE | 2018-08-30 09:25 | Discharge Summary ---
Discharge Summary Discharge Summary _ DATE OF ADMISSION: 08/25/2018 DATE OF DISCHARGE: 08/27/2018 REASON FOR ADMISSION: 38 years old male with past medical history of bipolar disorder, schizoaffective disorder, presented to emergency department with altered mental status and severe hyponatremia-117. Patient required oral intubation for airway protection. Laboratory workup revealed sodium 117 , potassium 2.9. Troponin was negative. Urine toxicology screen was negative. Tylenol, salicylates levels were negative. WBC 13.7. 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 Patient admitted to ICU for further management with diagnoses of hyponatremia , likely psychogenic, acute respiratory failure requiring intubation, acute encephalopathy, psychiatric history . CONSULTANTS: psychiatrist dr Delgado [facility] COURSE: Patient admitted to ICU Ventilator support and pulmonary toilet provided. Patient was followed up with ABG and chest x-ray. Patient was able to be weaned off the ventilator the next day. Patient was on fluid restriction. Serum and urine osmolality were done. Patient was given 3% sodium chloride solution. Sodium improved to 137. Potassium was replaced. Leukocytosis resolved ,likely was reactive. Blood culture were negative. Psychiatrist seen and evaluated patient and optimized psychiatric medication regimen. Patient clinically stabilized and was ready for discharge back to assisted living. FINAL DIAGNOSES: Acute hyponatremia, likely psychogenic Acute respiratory failure requiring intubation, status post extubation Acute encephalopathy due to metabolic factors/acute hyponatremia Schizoaffective disorder DISCHARGE MEDICATIONS: See Medication Reconciliation list. DISCHARGE INSTRUCTIONS: Patient was discharged to assistive living. I have been assigned to dictate discharge summary for this account. I was not involved in the patient's management. Saritha West NP Aug 30, 2018 09:25
== END 2018-08-27 19:50 | disposition home or self-care (01) | DRG 426 ==
LOC: EMR 14:12 → EDBEDREQSVC 14:51 → ICU 16:00 → EDBEDREQ 16:26 → ICU 17:15 → 4E 08-26 17:25
PROC: 5A1945Z Respiratory Ventilation, 24-96 Consecutive Hours (ICD-10-PCS; principal; 2018-08-25)
PROC: 0BH17EZ Insertion of Endotracheal Airway into Trachea, Via Natural or Artificial Opening (ICD-10-PCS; 2018-08-25)
DX: E87.1 Hypo-osmolality and hyponatremia (principal); J96.00 Acute respiratory failure, unspecified whether with hypoxia or hypercapnia; G93.41 Metabolic encephalopathy; F25.9 Schizoaffective disorder, unspecified; F17.200 Nicotine dependence, unspecified, uncomplicated; R45.1 Restlessness and agitation
CPT/HCPCS: 31500; 36415; 36600; 51702; 70450; 71045; 80048; 80053; 80307; 80329; 81003; 82550; 82803; 82962; 83605; 83930; 83935; 84300; 84478; 84484; 85025; 87040; 87081; 93005; 94002; 94003; 94760; 96361; 96365; 96375; 99291; J2250; J8499

== ENCOUNTER 2019-03-20 23:22 | Inpatient (IN) | payer OTHER ==
[~2019-03-20] VITALS: Ht 170.2 cm; Wt 67.1 kg
[~2019-03-20 23:22] MED LIST changes: +RISPERDAL2 MG ORAL
[2019-03-20 23:26] VITALS: BP 122/80
[2019-03-20] MEDS ORDERED: Acetaminophen 650 MG SUPP RECTAL ONE (23:45)
--- NOTE | 2019-03-21 00:04 | Emergency Room Report ---
History of Present Illness General Source: Medical Record, EMS, PMD Present Illness HPI This is an unfortunate 39-year-old male who has a history of seizure and anoxic brain injury. He presents with chief point of fever from the [facility]. Onset today. Unknown cough or congestion. No nausea no vomiting. History is otherwise from primary care DrJosef and [facility] note. Patient is nonverbal. Allergies: Coded Allergies: No Known Allergies (Unverified , 08/20/18) Patient History Past Medical History: see triage record, old chart reviewed Nursing Documentation-PMH Hx Cardiac Problems: No Hx Cancer: No Hx Gastrointestinal Problems: Yes Hx Neurological Problems: No Hx Cerebrovascular Accident: No Review of Systems Constitutional: Reports: fever Eye: Denies: eye pain, blurred vision ENT: Denies: ear pain, nose congestion, throat swelling Respiratory: Denies: cough, shortness of breath Cardiovascular: Denies: chest pain, palpitations Gastrointestinal: Denies: abdominal pain, diarrhea, nausea, vomiting Musculoskeletal: Denies: back pain, joint pain Skin: Denies: rash Neurological: Denies: headache, numbness Endocrine: Denies: increased thirst, increased urine Hematologic/Lymphatic: Denies: easy bruising All Other Systems: negative except mentioned in HPI Physical Exam vitals with fever and tachycardia Sp02 EP Interpretation: reviewed, normal General Appearance: no apparent distress, alert, Chronically Ill Head: normocephalic, atraumatic Eyes: bilateral eye PERRL, bilateral eye EOMI ENT: hearing grossly normal, normal pharynx Neck: full range of motion, supple, no meningismus Respiratory: chest non-tender, lungs clear, normal breath sounds Cardiovascular #1: regular rate, rhythm, no murmur, tachycardia Gastrointestinal: normal bowel sounds, non tender, no mass, no organomegaly, no bruit, non-distended Musculoskeletal: back normal, other - Contracted Psychiatric: mood/affect normal Skin: warm/dry Medical Decision Making Diagnostic Impression: Primary Impression: Sepsis Qualified Codes: A41.9 - Sepsis, unspecified organism Additional Impressions: Acute metabolic encephalopathy Dehydration Acute prerenal azotemia Acute hypernatremia ER Course Patient presents with fever and sepsis. He was also extremely dehydrated with a very high sodium. Initially him a no urine output. After IV fluid he has more urine output. Urine show few bacteria. This may be the source of infection. He has no obvious draining decubital ulcer. Dose of Rocephin given here. I discussed the case with Dr. Wyatt who will admit. Sepsis reevaluation: Vitals: Heart rate improved General: Mental status improved. More responsive. Cardiovascular: Strong pulse, capillary refill less than 2 seconds Lungs: Clear to auscultation Abdomen: Soft Extremity: No edema Skin: No mottling Lab Results Impression labs with leukocytosis and hypernatremia EKG Diagnostic Results Rate: tachycardiac Rhythm: NSR ST Segments: no acute changes Rhythm Strip Diag. Results EP Interpretation: yes Rate: 110 Rhythm: NSR, no PVC's Chest X-Ray Diagnostic Results Chest X-Ray Diagnostic Results : Chest X-Ray Ordered: Yes # of Views/Limited/Complete: 1 View Indication: Shortness of Breath EP Interpretation: Yes Interpretation: no consolidation, no effusion, no pneumothorax, no acute cardiopulmonary disease Impression: No acute disease Electronically Signed by: Jaime Ybarra MD Status: improved Disposition: ADMITTED INPATIENT Condition: Serious Referrals: Dain Mane DO (PCP) Jaime Ybarra MD March 21, 2019 00:04
[2019-03-21 00:25] LABS: BASOPHILS % (AUTO) 1.5 % (0.0-2.0); EOSINOPHILS % (AUTO) 0.1 % (0.0-3.0); HEMATOCRIT 41.9 % (42.0-52.0); HEMOGLOBIN 14.4 G/DL (14.2-18.0); LYMPHOCYTES % (AUTO) 26.4 % (20.0-45.0); MEAN CORPUSCULAR VOLUME 90 FL (80-99); MONOCYTES % (AUTO) 10.1 % (1.0-10.0); NEUTROPHILS % (AUTO) 61.8 % (45.0-75.0); PLATELET COUNT 504 K/UL (150-450); RED BLOOD COUNT 4.66 M/UL (4.70-6.10); RED CELL DISTRIBUTION WIDTH 12.4 % (11.6-14.8); WHITE BLOOD COUNT 14.1 K/UL (4.8-10.8)
[2019-03-21 00:53] LABS: ANION GAP 11 mmol/L (5-15); BLOOD UREA NITROGEN 49 mg/dL (7-18); CALCIUM 10.9 MG/DL (8.5-10.1); CARBON DIOXIDE 30 MMOL/L (21-32); CHLORIDE 113 MMOL/L (98-107); CREATININE 1.1 MG/DL (0.55-1.30); POTASSIUM 3.9 MMOL/L (3.5-5.1); SODIUM 154 MMOL/L (136-145)
[2019-03-21 01:07] LABS: ALANINE AMINOTRANSFERASE 82 U/L (12-78); ALBUMIN 3.7 G/DL (3.4-5.0); ALBUMIN/GLOBULIN RATIO 0.7 (1.0-2.7); ALKALINE PHOSPHATASE 101 U/L (46-116); ASPARTATE AMINO TRANSFERASE 32 U/L (15-37); BILIRUBIN,TOTAL 0.3 MG/DL (0.2-1.0); CKMB 1.4 NG/ML (0.0-3.6); CREATINE KINASE 213 U/L (26-308)
[2019-03-21 01:12] LABS: INR 1.2 (0.9-1.1)
[2019-03-21 01:25] LABS: APPEARANCE,URINE CLEAR; BILIRUBIN, URINE NEGATIVE (NEGATIVE); GLUCOSE, URINE (UA) NEGATIVE (NEGATIVE); KETONES,URINE NEGATIVE (NEGATIVE); LEUKOCYTE ESTERASE ,URINE NEGATIVE (NEGATIVE); NITRITE,URINE NEGATIVE (NEGATIVE); PH,URINE 5 (4.5-8.0); PROTEIN,URINE 2+ (NEGATIVE); UROBILINOGEN,URINE NORMAL MG/DL (0.0-1.0)
[2019-03-21 01:29] LABS: COLOR,URINE YELLOW
[2019-03-21] MEDS ORDERED: cefTRIAXone 1 GM in NS 55 ML IVPB ONE (01:45)
--- NOTE | 2019-03-21 02:27 | Diagnostic Imaging Report ---
EXAM: XR Chest, 1 View CLINICAL HISTORY: Altered mental status. TECHNIQUE: Frontal view of the chest. COMPARISON: CXR dated 08/26/2018. FINDINGS: Lungs: Possible mild atelectasis in left lower lung. No focal consolidation. No evidence of pulmonary edema. Pleural space: No pleural effusion. No pneumothorax. Heart: Unremarkable. No cardiomegaly. Mediastinum: Unremarkable. Bones/joints: Unremarkable. IMPRESSION: No radiographic evidence of acute cardiopulmonary process.
[2019-03-21 02:50] VITALS: BP 111/91
[2019-03-21] MEDS ORDERED: FOLIC ACID1 MG ORAL (03:33)
[2019-03-21] MEDS ORDERED: SENNA8.6 M2 PO (03:33)
[2019-03-21] MEDS ORDERED: VITAMIN B-1100 MG ORAL (03:33)
[2019-03-21] MEDS ORDERED: MILK OF MA400 MG/51 ORAL (03:33)
[2019-03-21] MEDS ORDERED: ARICEPT10 MG ORAL (03:33)
[2019-03-21] MEDS ORDERED: VITAMIN B-12500 MCG ORAL (03:33)
[2019-03-21] MEDS ORDERED: ACETAMINOPHEN325 M1 ORAL (03:33)
[2019-03-21] MEDS ORDERED: KEPPRA LIQ100 MG/1 M ORAL (03:33)
[2019-03-21] MEDS ORDERED: MIRALAX17 G2 ORAL (03:33)
[2019-03-21] MEDS ORDERED: BISACODYL10 M1 RC (03:33)
[2019-03-21] MEDS ORDERED: IPRATROPIU0.2 MG/1 M HHN (03:33)
[2019-03-21] MEDS ORDERED: LOVENOX10 M4 SUBQ (03:33)
[2019-03-21] MEDS ORDERED: DOCU LIQUI50 MG/5 M1 PO (03:33)
[2019-03-21] MEDS ORDERED: Albuterol/Ipratropium 3ml neb HHN PRN (03:45)
[2019-03-21] MEDS ORDERED: Milk of Magnesia 30ml Ud ORAL PRN (03:45)
[2019-03-21 04:00] VITALS: BP 127/86
[2019-03-21 07:59] LABS: BASOPHILS % (AUTO) 0.9 % (0.0-2.0); EOSINOPHILS % (AUTO) 0.3 % (0.0-3.0); HEMATOCRIT 38.9 % (42.0-52.0); HEMOGLOBIN 12.9 G/DL (14.2-18.0); MEAN CORPUSCULAR VOLUME 92 FL (80-99); MONOCYTES % (AUTO) 9.5 % (1.0-10.0); NEUTROPHILS % (AUTO) 66.3 % (45.0-75.0); PLATELET COUNT 425 K/UL (150-450); RED BLOOD COUNT 4.24 M/UL (4.70-6.10); RED CELL DISTRIBUTION WIDTH 12.4 % (11.6-14.8); WHITE BLOOD COUNT 12.6 K/UL (4.8-10.8)
[2019-03-21 08:00] VITALS: BP 143/95
[2019-03-21 08:36] LABS: ALANINE AMINOTRANSFERASE 65 U/L (12-78); ALBUMIN/GLOBULIN RATIO 0.7 (1.0-2.7); ALKALINE PHOSPHATASE 80 U/L (46-116); ANION GAP 9 mmol/L (5-15); ASPARTATE AMINO TRANSFERASE 24 U/L (15-37); BILIRUBIN,TOTAL 0.3 MG/DL (0.2-1.0); BLOOD UREA NITROGEN 38 mg/dL (7-18); CALCIUM 9.8 MG/DL (8.5-10.1); CARBON DIOXIDE 28 MMOL/L (21-32); CHLORIDE 118 MMOL/L (98-107); CREATININE 0.9 MG/DL (0.55-1.30); POTASSIUM 3.8 MMOL/L (3.5-5.1); SODIUM 155 MMOL/L (136-145)
[2019-03-21] MEDS ORDERED: Vitamin B-12 500mcg tab ORAL SCH (09:00)
[2019-03-21] MEDS ORDERED: Docusate 100mg/10ml Liq GT SCH (09:00)
[2019-03-21] MEDS ORDERED: levETIRAcetam 500mg/5ml Liquid ORAL SCH (09:00)
--- NOTE | 2019-03-21 09:34 | Consultation ---
Consult Note Consult Note Asked to eval for hypernatremia This is an unfortunate 39-year-old male who has a history of seizure and anoxic brain injury. He presents with chief point of fever from the assisted. Onset today. Unknown cough or congestion. No nausea no vomiting. History is otherwise from primary care DrJosef and assisted note. Patient is nonverbal. No Known Allergies (Unverified , 08/20/18) Hx Gastrointestinal Problems: Yes has PEG non verbal examined data reviewed Assessment/Plan Renal failure: Dehydration Hypernatremia, Free water deficit Sepsis Acute metabolic encephalopathy PEG Sz disorder HTN plan: D5W IV Fluid- Coreg GT monitor electrolytes per orders Janes Barros MD March 21, 2019 09:34
[2019-03-21] MEDS: Miralax 17gm pkt ORAL SCH (09:35)
[2019-03-21] MEDS: Donepezil 10mg tab ORAL SCH (09:35)
[2019-03-21] MEDS: Thiamine 100mg tab ORAL SCH (09:35)
[2019-03-21] MEDS ORDERED: Carvedilol 6.25mg Tab GT SCH (09:45)
[2019-03-21] MEDS: Vancomycin 1.25gm Premix IVPB SCH ×2 (10:33→22:11)
[2019-03-21 12:00] VITALS: BP 111/79
[2019-03-21] MEDS: Piperacillin/Tazobactam 3.375 GM in NS 110 ML IVPB SCH ×2 (12:07→20:26)
--- NOTE | 2019-03-21 12:30 | Cardiac Electrophysiology PN ---
Subjective Subjective [id number] Objective Last 24 Hour Vital Signs Date Time Temp Pulse Resp B/P (MAP) Pulse Ox O2 Delivery O2 Flow Rate FiO2 03/21/19 10:33 134 143/95 03/21/19 08:00 99.0 134 22 143/95 (111) 95 03/21/19 04:23 Room Air 03/21/19 04:00 99.0 112 17 127/86 (100) 96 03/21/19 04:00 113 03/21/19 03:02 115 03/21/19 02:50 98.4 112 17 111/91 (98) 94 03/21/19 02:45 98.9 112 25 133/94 98 Room Air 03/21/19 00:06 101.8 126 25 131/101 (111) 98 Room Air 03/20/19 23:26 128 20 Room Air 03/20/19 23:26 100.0 128 20 122/80 97 Room Air Intake and Output 03/20/19 03/21/19 19:00 07:00 Intake Total 100 ml Output Total 300 ml Balance -200 ml Intake Oral 0 ml Free Water 100 ml Output Urine Total 300 ml # Voids 1 Laboratory Tests Test 03/20/19 23:45 03/20/19 23:59 03/21/19 00:14 03/21/19 00:23 Lactic Acid Level 1.40 mmol/L (0.4-2.0) Troponin I 0.005 ng/mL (0.000-0.056) White Blood Count 14.1 K/UL (4.8-10.8) H Red Blood Count 4.66 M/UL (4.70-6.10) L Hemoglobin 14.4 G/DL (14.2-18.0) Hematocrit 41.9 % (42.0-52.0) L Mean Corpuscular Volume 90 FL (80-99) Mean Corpuscular Hemoglobin 30.9 PG (27.0-31.0) Mean Corpuscular Hemoglobin Concent 34.3 G/DL (32.0-36.0) Red Cell Distribution Width 12.4 % (11.6-14.8) Platelet Count 504 K/UL (150-450) H Mean Platelet Volume 6.8 FL (6.5-10.1) Neutrophils (%) (Auto) 61.8 % (45.0-75.0) Lymphocytes (%) (Auto) 26.4 % (20.0-45.0) Monocytes (%) (Auto) 10.1 % (1.0-10.0) H Eosinophils (%) (Auto) 0.1 % (0.0-3.0) Basophils (%) (Auto) 1.5 % (0.0-2.0) Sodium Level 154 MMOL/L (136-145) H Potassium Level 3.9 MMOL/L (3.5-5.1) Chloride Level 113 MMOL/L (98-107) H Carbon Dioxide Level 30 MMOL/L (21-32) Anion Gap 11 mmol/L (5-15) Blood Urea Nitrogen 49 mg/dL (7-18) H Creatinine 1.1 MG/DL (0.55-1.30) Estimat Glomerular Filtration Rate > 60 mL/min (>60) Glucose Level 148 MG/DL (74-106) H Calcium Level 10.9 MG/DL (8.5-10.1) H Total Bilirubin 0.3 MG/DL (0.2-1.0) Aspartate Amino Transf (AST/SGOT) 32 U/L (15-37) Alanine Aminotransferase (ALT/SGPT) 82 U/L (12-78) H Alkaline Phosphatase 101 U/L (46-116) Total Creatine Kinase 213 U/L (26-308) Creatine Kinase MB 1.4 NG/ML (0.0-3.6) Creatine Kinase MB Relative Index 0.6 Total Protein 8.7 G/DL (6.4-8.2) H Albumin 3.7 G/DL (3.4-5.0) Globulin 5.0 g/dL Albumin/Globulin Ratio 0.7 (1.0-2.7) L Prothrombin Time 12.4 SEC (9.30-11.50) H Prothromb Time International Ratio 1.2 (0.9-1.1) H Activated Partial Thromboplast Time 29 SEC (23-33) Test 03/21/19 01:00 03/21/19 06:40 Urine Color Yellow Urine Appearance Clear Urine pH 5 (4.5-8.0) Urine Specific [place] 1.020 (1.005-1.035) Urine Protein 2+ (NEGATIVE) H Urine Glucose (UA) Negative (NEGATIVE) Urine Ketones Negative (NEGATIVE) Urine Blood 1+ (NEGATIVE) H Urine Nitrite Negative (NEGATIVE) Urine Bilirubin Negative (NEGATIVE) Urine Urobilinogen Normal MG/DL (0.0-1.0) Urine Leukocyte Esterase Negative (NEGATIVE) Urine RBC 2-4 /HPF (0 - 0) H Urine WBC 2-4 /HPF (0 - 0) Urine Squamous Epithelial Cells Occasional /LPF Urine Amorphous Sediment Few /LPF (NONE) H Urine Bacteria Few /HPF (NONE) Urine Hyaline Casts 0-2 /LPF (NONE) H Urine Fine Granular Casts 0-2 /LPF (NONE) H White Blood Count 12.6 K/UL (4.8-10.8) H Red Blood Count 4.24 M/UL (4.70-6.10) L Hemoglobin 12.9 G/DL (14.2-18.0) L Hematocrit 38.9 % (42.0-52.0) L Mean Corpuscular Volume 92 FL (80-99) Mean Corpuscular Hemoglobin 30.3 PG (27.0-31.0) Mean Corpuscular Hemoglobin Concent 33.0 G/DL (32.0-36.0) Red Cell Distribution Width 12.4 % (11.6-14.8) Platelet Count 425 K/UL (150-450) Mean Platelet Volume 7.1 FL (6.5-10.1) Neutrophils (%) (Auto) 66.3 % (45.0-75.0) Lymphocytes (%) (Auto) 23.0 % (20.0-45.0) Monocytes (%) (Auto) 9.5 % (1.0-10.0) Eosinophils (%) (Auto) 0.3 % (0.0-3.0) Basophils (%) (Auto) 0.9 % (0.0-2.0) Sodium Level 155 MMOL/L (136-145) H Potassium Level 3.8 MMOL/L (3.5-5.1) Chloride Level 118 MMOL/L (98-107) H Carbon Dioxide Level 28 MMOL/L (21-32) Anion Gap 9 mmol/L (5-15) Blood Urea Nitrogen 38 mg/dL (7-18) H Creatinine 0.9 MG/DL (0.55-1.30) Estimat Glomerular Filtration Rate > 60 mL/min (>60) Glucose Level 127 MG/DL (74-106) H Calcium Level 9.8 MG/DL (8.5-10.1) Total Bilirubin 0.3 MG/DL (0.2-1.0) Aspartate Amino Transf (AST/SGOT) 24 U/L (15-37) Alanine Aminotransferase (ALT/SGPT) 65 U/L (12-78) Alkaline Phosphatase 80 U/L (46-116) Total Protein 7.4 G/DL (6.4-8.2) Albumin 3.0 G/DL (3.4-5.0) L Globulin 4.4 g/dL Albumin/Globulin Ratio 0.7 (1.0-2.7) L Jim Manjarrez MD March 21, 2019 12:30
[2019-03-21] MEDS: Docusate 100mg/10ml Liq GT SCH ×2 (13:23→18:39)
--- NOTE | 2019-03-21 14:39 | Cardiology Report ---
APPROVED REPORT EKG Measurement Heart [id number] Sinus tachycardia Otherwise normal ECG
[2019-03-21 16:00] VITALS: BP 115/71
--- NOTE | 2019-03-21 17:45 | Consultation ---
DATE OF CONSULTATION: 03/21/2019 CARDIOLOGY CONSULTATION REFERRING PHYSICIAN: Lenin Wyatt M.D. REASON FOR CONSULTATION: Tachycardia and hypertension. HISTORY OF PRESENT ILLNESS: The patient is a 39-year-old gentleman with history of anoxic brain injury and seizures. He was essentially nonverbal for four months per the patient's brother at the bedside. [facility]. The patient was also tachycardic with heart rate of 120s to 130s. Cardiac electrophysiology consultation was requested for further evaluation and management. REVIEW OF SYSTEMS: Cannot be obtained. PAST MEDICAL HISTORY: 1. Anoxic brain injury. 2. Seizures. 3. Dysphagia, status post PEG placement. 4. History of tracheostomy and tracheostomy removal. PHYSICAL EXAMINATION: VITAL SIGNS: Show blood pressure of 143/95, pulse 134, respirations 18, and temperature is 99 degrees. HEAD AND NECK: Shows no JVD. Tracheostomy site in the past closed. LUNGS: Coarse rhonchi. CARDIOVASCULAR: Shows tachycardic S1 and S2 with no gallop. ABDOMEN: Soft, status post G-tube. EXTREMITIES: No pitting edema. LABORATORY DATA: Show white count 12.2, hemoglobin 12.9, hematocrit 38.9, and platelet count of 425,000. Sodium is 155, potassium 3.8, BUN of 49, creatinine 1.1, and glucose of 148. Troponin is negative. ASSESSMENT AND PLAN: 1. Sinus tachycardia due to severe dehydration as BUN and creatinine ratio was around 50 on admission with sodium of 155. The patient is getting intravenous fluids per Dr. Barros. Continue the patient also on low-dose Coreg. Echocardiogram will be repeated. 2. Hypertension. Continue Coreg 6.25 mg b.i.d. 3. Sepsis, on IV antibiotic with vancomycin and Zosyn. 4. Dysphagia, status post percutaneous endoscopic gastrostomy placement. 5. History of anoxic brain injury and seizures. Thank you very much, Dr. Wyatt, for allowing me to participate in the care of this patient. Please do not hesitate to contact me for any questions regarding my evaluation. iJm Manjarrez M.D. DR: Marilia JOB#: [id number] CC:
[2019-03-21] MEDS ORDERED: DONEPEZIL HCL10 M2 GT (18:58)
[2019-03-21] MEDS ORDERED: VITAMIN B-12500 MCG GT (19:00)
[2019-03-21] MEDS ORDERED: DOCU LIQUI50 MG/5 M1 GT (19:03)
[2019-03-21] MEDS ORDERED: FOLIC ACID1 MG GT (19:04)
[2019-03-21] MEDS ORDERED: DUONEB 0.5-3(2.53 ML HHN (19:08)
[2019-03-21] MEDS ORDERED: LEVETIRACE100 MG/1 M GT (19:11)
[2019-03-21] MEDS ORDERED: MILK OF MA400 MG/51 GT (19:12)
[2019-03-21] MEDS ORDERED: MIRALAX17 G2 GT (19:14)
[2019-03-21] MEDS ORDERED: SENNOSIDES8.6 MG GT (19:16)
[2019-03-21] MEDS ORDERED: VITAMIN B-1100 MG GT (19:18)
[2019-03-21] MEDS ORDERED: ACETAMINOPHEN325 M1 GT (19:19)
[2019-03-21 20:00] VITALS: BP 123/80
[2019-03-21] MEDS: Sennosides 8.6mg tab GT SCH (20:28)
[2019-03-21] MEDS: Carvedilol 6.25mg Tab GT SCH (20:28)
[2019-03-21] MEDS: levETIRAcetam 500mg/5ml Liquid ORAL SCH (20:29)
--- NOTE | 2019-03-21 22:39 | Consultation ---
History of Present Illness General Date patient seen: March 21, 2019 Chief Complaint: AMS Referring physician: Dr. Lenin Howe Present Illness HPI Ger Cooney is a 39-year-old gentleman with history of anoxic brain injury, tracheostomy insertion/ removal, dysphagia s/p PEG, chronic constipation and seizures. It is reported by his brother that he has been non verbal for the last four months. He was brought in from [facility] for fever with tachycardia. Allergies: Coded Allergies: No Known Allergies (Unverified , 08/20/18) Medication History Scheduled Cyanocobalamin (Vitamin B-12)* (Vitamin B-12*), 1,000 MCG GT DAILY, (Reported) Docusate Sodium (Docu Liquid), 100 MG GT TWICE A DAY, (Reported) Donepezil Hcl* (Donepezil Hcl*), 10 MG GT DAILY, (Reported) Enoxaparin* (Lovenox*), 40 MG SUBQ DAILY, (Reported) Folic Acid* (Folic Acid*), 1 MG GT DAILY, (Reported) Levetiracetam* (Levetiracetam*), 10 ML GT BID, (Reported) Polyethylene Glycol 3350* (Miralax*), 17 GM GT DAILY, (Reported) Sennosides* (Sennosides*), 17.2 MG GT QHS, (Reported) Thiamine Hcl* (Vitamin B-1*), 100 MG GT DAILY, (Reported) Scheduled PRN Acetaminophen* (Acetaminophen 325MG Tablet*), 650 MG GT Q6H PRN for For Pain, ( Reported) Bisacodyl (Bisacodyl), 10 MG RC Q24HR PRN for Constipation, (Reported) Ipratropium/Albuterol Sulfate (DuoNeb 0.5-3(2.5)mg/3ml), 3 ML HHN Q4HR PRN for Shortness of Breath, (Reported) Magnesium Hydroxide* (Milk Of Magnesia*), 30 ML GT DAILY PRN for Constipation, ( Reported) Discontinued Medications Olanzapine (Olanzapine Odt), 20 MG PO BID, (Reported) Discontinued Reason: Pt stopped taking med Risperidone* (Risperdal*), 2 MG ORAL QHS, (Reported) Discontinued Reason: Pt stopped taking med Patient History Limited by: medical condition History Provided By: Medical Record Healthcare decision maker Resuscitation status Do Not Resuscitate Advanced Directive on File Past Medical/Surgical History Past Medical/Surgical History: (1) Schizoaffective disorder (2) Weakness generalized Review of Systems All Other Systems: negative except mentioned in HPI ROS Narrative Unable to obtain due to patient's medical condition. Physical Exam General Appearance: WD/WN, no apparent distress, lethargic, other Lines, tubes and drains: peripheral, gtube HEENT: normocephalic, atraumatic, anicteric, mucous membranes moist, PERRL Neck: non-tender, normal alignment, supple, trach - Prior tracheostomy scar, other Respiratory/Chest: no respiratory distress, no accessory muscle use Cardiovascular/Chest: no JVD Skin Exam: normal pigmentation, other - diaphoretic Neurologic: unresponsiveness, aphasia, other Physical Exam Narrative Patient is diaphoretic and unresponsive - opens eyes to noxious stimuli but requires strong noxious stimuli No sig w/d in ANY limb Eyes / Gaze conjugate with oculocephalic reflexes intact Patient is rigid with clonus in all extremities Last 24 Hour Vital Signs Date Time Temp Pulse Resp B/P (MAP) Pulse Ox O2 Delivery O2 Flow Rate FiO2 03/21/19 21:00 Room Air 03/21/19 20:28 110 123/80 03/21/19 20:00 98.9 110 18 123/80 (94) 95 03/21/19 16:00 102 03/21/19 16:00 99.4 100 20 115/71 (86) 96 03/21/19 12:00 114 03/21/19 12:00 98.3 117 20 111/79 (90) 95 03/21/19 10:33 134 143/95 03/21/19 09:00 Room Air 03/21/19 08:00 99.0 134 22 143/95 (111) 95 03/21/19 08:00 118 03/21/19 04:23 Room Air 03/21/19 04:00 99.0 112 17 127/86 (100) 96 03/21/19 04:00 113 03/21/19 03:02 115 03/21/19 02:50 98.4 112 17 111/91 (98) 94 03/21/19 02:45 98.9 112 25 133/94 98 Room Air 03/21/19 00:06 101.8 126 25 131/101 (111) 98 Room Air 03/20/19 23:26 128 20 Room Air 03/20/19 23:26 100.0 128 20 122/80 97 Room Air Intake and Output 03/20/19 03/21/19 19:00 07:00 Intake Total 100 ml Output Total 300 ml Balance -200 ml Intake Oral 0 ml Free Water 100 ml Output Urine Total 300 ml # Voids 1 Laboratory Tests Test 03/20/19 23:45 03/20/19 23:59 03/21/19 00:14 03/21/19 00:23 Lactic Acid Level 1.40 mmol/L (0.4-2.0) Troponin I 0.005 ng/mL (0.000-0.056) White Blood Count 14.1 K/UL (4.8-10.8) H Red Blood Count 4.66 M/UL (4.70-6.10) L Hemoglobin 14.4 G/DL (14.2-18.0) Hematocrit 41.9 % (42.0-52.0) L Mean Corpuscular Volume 90 FL (80-99) Mean Corpuscular Hemoglobin 30.9 PG (27.0-31.0) Mean Corpuscular Hemoglobin Concent 34.3 G/DL (32.0-36.0) Red Cell Distribution Width 12.4 % (11.6-14.8) Platelet Count 504 K/UL (150-450) H Mean Platelet Volume 6.8 FL (6.5-10.1) Neutrophils (%) (Auto) 61.8 % (45.0-75.0) Lymphocytes (%) (Auto) 26.4 % (20.0-45.0) Monocytes (%) (Auto) 10.1 % (1.0-10.0) H Eosinophils (%) (Auto) 0.1 % (0.0-3.0) Basophils (%) (Auto) 1.5 % (0.0-2.0) Sodium Level 154 MMOL/L (136-145) H Potassium Level 3.9 MMOL/L (3.5-5.1) Chloride Level 113 MMOL/L (98-107) H Carbon Dioxide Level 30 MMOL/L (21-32) Anion Gap 11 mmol/L (5-15) Blood Urea Nitrogen 49 mg/dL (7-18) H Creatinine 1.1 MG/DL (0.55-1.30) Estimat Glomerular Filtration Rate > 60 mL/min (>60) Glucose Level 148 MG/DL (74-106) H Calcium Level 10.9 MG/DL (8.5-10.1) H Total Bilirubin 0.3 MG/DL (0.2-1.0) Aspartate Amino Transf (AST/SGOT) 32 U/L (15-37) Alanine Aminotransferase (ALT/SGPT) 82 U/L (12-78) H Alkaline Phosphatase 101 U/L (46-116) Total Creatine Kinase 213 U/L (26-308) Creatine Kinase MB 1.4 NG/ML (0.0-3.6) Creatine Kinase MB Relative Index 0.6 Total Protein 8.7 G/DL (6.4-8.2) H Albumin 3.7 G/DL (3.4-5.0) Globulin 5.0 g/dL Albumin/Globulin Ratio 0.7 (1.0-2.7) L Prothrombin Time 12.4 SEC (9.30-11.50) H Prothromb Time International Ratio 1.2 (0.9-1.1) H Activated Partial Thromboplast Time 29 SEC (23-33) Test 03/21/19 01:00 03/21/19 06:40 Urine Color Yellow Urine Appearance Clear Urine pH 5 (4.5-8.0) Urine Specific [place] 1.020 (1.005-1.035) Urine Protein 2+ (NEGATIVE) H Urine Glucose (UA) Negative (NEGATIVE) Urine Ketones Negative (NEGATIVE) Urine Blood 1+ (NEGATIVE) H Urine Nitrite Negative (NEGATIVE) Urine Bilirubin Negative (NEGATIVE) Urine Urobilinogen Normal MG/DL (0.0-1.0) Urine Leukocyte Esterase Negative (NEGATIVE) Urine RBC 2-4 /HPF (0 - 0) H Urine WBC 2-4 /HPF (0 - 0) Urine Squamous Epithelial Cells Occasional /LPF Urine Amorphous Sediment Few /LPF (NONE) H Urine Bacteria Few /HPF (NONE) Urine Hyaline Casts 0-2 /LPF (NONE) H Urine Fine Granular Casts 0-2 /LPF (NONE) H White Blood Count 12.6 K/UL (4.8-10.8) H Red Blood Count 4.24 M/UL (4.70-6.10) L Hemoglobin 12.9 G/DL (14.2-18.0) L Hematocrit 38.9 % (42.0-52.0) L Mean Corpuscular Volume 92 FL (80-99) Mean Corpuscular Hemoglobin 30.3 PG (27.0-31.0) Mean Corpuscular Hemoglobin Concent 33.0 G/DL (32.0-36.0) Red Cell Distribution Width 12.4 % (11.6-14.8) Platelet Count 425 K/UL (150-450) Mean Platelet Volume 7.1 FL (6.5-10.1) Neutrophils (%) (Auto) 66.3 % (45.0-75.0) Lymphocytes (%) (Auto) 23.0 % (20.0-45.0) Monocytes (%) (Auto) 9.5 % (1.0-10.0) Eosinophils (%) (Auto) 0.3 % (0.0-3.0) Basophils (%) (Auto) 0.9 % (0.0-2.0) Sodium Level 155 MMOL/L (136-145) H Potassium Level 3.8 MMOL/L (3.5-5.1) Chloride Level 118 MMOL/L (98-107) H Carbon Dioxide Level 28 MMOL/L (21-32) Anion Gap 9 mmol/L (5-15) Blood Urea Nitrogen 38 mg/dL (7-18) H Creatinine 0.9 MG/DL (0.55-1.30) Estimat Glomerular Filtration Rate > 60 mL/min (>60) Glucose Level 127 MG/DL (74-106) H Calcium Level 9.8 MG/DL (8.5-10.1) Total Bilirubin 0.3 MG/DL (0.2-1.0) Aspartate Amino Transf (AST/SGOT) 24 U/L (15-37) Alanine Aminotransferase (ALT/SGPT) 65 U/L (12-78) Alkaline Phosphatase 80 U/L (46-116) Total Protein 7.4 G/DL (6.4-8.2) Albumin 3.0 G/DL (3.4-5.0) L Globulin 4.4 g/dL Albumin/Globulin Ratio 0.7 (1.0-2.7) L Height (Feet): 5 Height (Inches): 7.00 Weight (Pounds): 110 Medications Current Medications Medications (Trade) Dose Ordered Sig/Yohannes Route PRN Reason Start Time Stop Time Status Last Admin Dose Admin Acetaminophen (Tylenol) 650 mg Q6H PRN ORAL Mild Pain/Temp > 100.5 03/21/19 03:45 04/20/19 03:44 Albuterol/ Ipratropium (Albuterol/ Ipratropium) 3 ml Q4H PRN HHN Shortness of Breath 03/21/19 03:45 03/26/19 03:44 Bisacodyl (Dulcolax) 10 mg Q24HRS PRN RECTAL Constipation 03/21/19 03:45 04/20/19 03:44 Carvedilol (Coreg) 6.25 mg EVERY 12 HOURS GT 03/21/19 21:00 04/20/19 20:59 03/21/19 20:28 Dextrose 1,000 ml @ 75 mls/hr [id number] IV 03/21/19 12:46 03/22/19 06:30 03/21/19 13:21 Docusate Sodium (Colace) 100 mg TID GT 03/21/19 13:00 04/20/19 08:59 03/21/19 18:39 Donepezil HCl (Aricept) 10 mg DAILY ORAL 03/21/19 09:00 04/20/19 08:59 03/21/19 09:35 Levetiracetam (Keppra) 1,000 mg Q12HR ORAL 03/21/19 21:00 04/20/19 08:59 03/21/19 20:29 Magnesium Hydroxide (Mom) 30 ml DAILY PRN ORAL Constipation 03/21/19 03:45 04/20/19 03:44 Piperacillin Sod/ Tazobactam Sod 3.375 gm/Sodium Chloride 110 ml @ 27.5 mls/hr Q8H IVPB 03/21/19 12:00 03/28/19 11:59 03/21/19 20:26 Polyethylene Glycol (Miralax) 17 gm DAILY ORAL 03/21/19 09:00 04/20/19 08:59 03/21/19 09:35 Sennosides (Senokot) 17.2 mg BEDTIME GT 03/21/19 21:00 04/20/19 20:59 03/21/19 20:28 Thiamine HCl (Vitamin B1) 100 mg DAILY ORAL 03/21/19 09:00 04/20/19 08:59 03/21/19 09:35 Vancomycin HCl (Vanco rx to dose) 1 ea DAILY PRN MISC Per rx protocol 03/21/19 08:30 04/20/19 08:29 Vancomycin HCl/ Dextrose 275 ml @ 183.333 mls/hr Q12H IVPB 03/21/19 10:00 03/26/19 09:59 03/21/19 22:11 Assessment/Plan Problem List: (1) Seizure disorder ICD Codes: G40.909 - Epilepsy, unspecified, not intractable, without status epilepticus SNOMED: 079824654 (2) Anoxic brain injury ICD Codes: G93.1 - Anoxic brain damage, not elsewhere classified SNOMED: 889426331 (3) Sepsis ICD Codes: A41.9 - Sepsis, unspecified organism SNOMED: 37844159, 069167022 Qualifiers: Qualified Codes: A41.9 - Sepsis, unspecified organism (4) Acute hypernatremia ICD Codes: E87.0 - Hyperosmolality and hypernatremia SNOMED: 8671941, 332033333 (5) Dehydration ICD Codes: E86.0 - Dehydration SNOMED: 74466113, 491452776 (6) Encephalopathy due to metabolic factor or toxin SNOMED: 977307008 (7) Acute metabolic encephalopathy ICD Codes: G93.41 - Metabolic encephalopathy SNOMED: 73762970, 040921142 (8) Weakness generalized ICD Codes: R53.1 - Weakness SNOMED: 45103109 (9) Schizoaffective disorder ICD Codes: F25.9 - Schizoaffective disorder, unspecified SNOMED: 32888987 Status: fever Assessment/Plan: Na 135-145 Telemetry monitoring Q2 hour neuro OBS EEG Routine MRI Brain w/o contrast Maintain normothermia with Tylenol and cooling blanket Maintain normoglycemia with ISS SBP<140 Continue Keppra 1000 mg BID - Ativan 1mg PRN for seizure Check Keppra level Replete/ Replace lytes , IRON Cherin,Chey N.P. March 21, 2019 22:39
[2019-03-22] VITALS: BP 125/77
--- NOTE | 2019-03-22 02:15 | History and Physical Report ---
DATE OF ADMISSION: 03/21/2019 HISTORY OF PRESENT ILLNESS: The patient comes in because he had a fever of , and also was tachycardic. The patient is very weak and nonverbal. We cannot get any history from the patient and he is admitted for sepsis and tachycardia most likely due to fever. PAST MEDICAL HISTORY: Dementia, constipation, and seizure disorder. ALLERGIES: No known allergies. PAST SURGICAL HISTORY: Feeding tube. MEDICATIONS: Bisacodyl, Colace, donepezil, Keppra, Senokot, Tylenol. REVIEW OF SYSTEMS: Unable to obtain. SOCIAL HISTORY: Unable to obtain. PHYSICAL EXAMINATION: VITAL SIGNS: Temperature 99 degrees, pulse is 136, blood pressure 152/95. HEENT: PERRLA. NECK: Supple. CHEST: Clear to auscultation. CARDIOVASCULAR: Tachycardic. ABDOMEN: G-tube site is intact. Positive bowel sounds. SKIN: For skin integrity, please refer to the nursing notes. CENTRAL NERVOUS SYSTEM: Open eyes to noxious stimuli. He does not speak. He does not follow neurological exam. LABORATORY DATA: WBC of 14.1, hemoglobin of 14, and platelets of 504,000. Sodium 154, potassium 3.9, BUN of , creatinine 1.1, and glucose of 140. ASSESSMENT AND PLAN: , altered mental status, hypernatremia, dehydration, acute renal failure, fever, sepsis, and tachycardia. I have asked Dr. Yash Shay, Dr. Barros, Dr. Baugh, and Dr. Oliva to see the patient for the above-mentioned diagnoses as well as further diagnosis and further treatment. Antibiotics with Dr. Yash Shay. The patient to continue IV fluids. Lenin Wyatt M.D. DR: JOSE M JOB#: [id number] CC:
[2019-03-22 04:00] VITALS: BP 135/79
[2019-03-22] MEDS: Piperacillin/Tazobactam 3.375 GM in NS 110 ML IVPB SCH ×3 (04:49→22:26)
[2019-03-22 06:27] LABS: BASOPHILS % (AUTO) 1.4 % (0.0-2.0); EOSINOPHILS % (AUTO) 2.5 % (0.0-3.0); HEMATOCRIT 34.1 % (42.0-52.0); HEMOGLOBIN 11.3 G/DL (14.2-18.0); MEAN CORPUSCULAR VOLUME 91 FL (80-99); MONOCYTES % (AUTO) 9.4 % (1.0-10.0); NEUTROPHILS % (AUTO) 57.7 % (45.0-75.0); PLATELET COUNT 341 K/UL (150-450); RED BLOOD COUNT 3.72 M/UL (4.70-6.10); RED CELL DISTRIBUTION WIDTH 12.3 % (11.6-14.8); WHITE BLOOD COUNT 9.3 K/UL (4.8-10.8)
[2019-03-22 07:21] LABS: ALANINE AMINOTRANSFERASE 60 U/L (12-78); ALBUMIN 3.1 G/DL (3.4-5.0); ALBUMIN/GLOBULIN RATIO 0.8 (1.0-2.7); ALKALINE PHOSPHATASE 68 U/L (46-116); ANION GAP 11 mmol/L (5-15); ASPARTATE AMINO TRANSFERASE 23 U/L (15-37); BILIRUBIN,TOTAL 0.5 MG/DL (0.2-1.0); BLOOD UREA NITROGEN 26 mg/dL (7-18); CALCIUM 9.8 MG/DL (8.5-10.1); CARBON DIOXIDE 27 MMOL/L (21-32); CHLORIDE 114 MMOL/L (98-107); CHOLESTEROL 134 MG/DL (< 200); CREATININE 0.9 MG/DL (0.55-1.30); FERRITIN 145 NG/ML (8-388); HDL CHOLESTEROL 25 MG/DL (40-60); PHOSPHORUS 3.9 MG/DL (2.5-4.9); POTASSIUM 3.2 MMOL/L (3.5-5.1); SODIUM 152 MMOL/L (136-145); TRIGLYCERIDES 184 MG/DL (30-150)
[2019-03-22 07:24] LABS: % IRON SATURATION 30 % (15-50); IRON 67 ug/dL (50-175); TOTAL IRON BINDING CAPACITY 221 ug/dL (250-450)
[2019-03-22 08:00] VITALS: BP 111/77
[2019-03-22] MEDS: Docusate 100mg/10ml Liq GT SCH ×3 (08:55→18:00)
[2019-03-22] MEDS: Carvedilol 6.25mg Tab GT SCH (08:56)
[2019-03-22] MEDS: Donepezil 10mg tab ORAL SCH (08:56)
[2019-03-22] MEDS: Thiamine 100mg tab ORAL SCH (08:57)
[2019-03-22] MEDS: Miralax 17gm pkt ORAL SCH (08:57)
[2019-03-22] MEDS: levETIRAcetam 500mg/5ml Liquid ORAL SCH ×2 (08:57→22:26)
--- NOTE | 2019-03-22 10:06 | Cardiac Electrophysiology PN ---
Assessment/Plan Assessment/Plan 1. Sinus tachycardia due to severe dehydration as BUN and creatinine ratio was around 50 on admission with sodium of 155. The patient is getting intravenous fluids per Dr. Barros. Continue Coreg. Echocardiogram ef 60% 2. Hypertension. Continue Coreg 6.25 mg b.i.d. 3. Sepsis, on IV antibiotic with vancomycin and Zosyn. 4. Dysphagia, status post percutaneous endoscopic gastrostomy placement. 5. History of anoxic brain injury and seizures. 6. Dehydration on D5W at 75 cc/hr DW RN Subjective Subjective In SR today. Nonverbal. Objective Last 24 Hour Vital Signs Date Time Temp Pulse Resp B/P (MAP) Pulse Ox O2 Delivery O2 Flow Rate FiO2 03/22/19 08:56 92 111/77 03/22/19 08:07 Room Air 03/22/19 08:00 99.3 92 20 111/77 (88) 96 03/22/19 04:00 98.9 102 17 135/79 (97) 96 03/22/19 04:00 93 03/22/19 00:00 101 03/22/19 00:00 98.7 108 17 125/77 (93) 95 03/21/19 22:51 106 20 97 Room Air 21 03/21/19 21:00 Room Air 03/21/19 20:28 110 123/80 03/21/19 20:00 98.9 110 18 123/80 (94) 95 03/21/19 20:00 106 03/21/19 16:00 102 03/21/19 16:00 99.4 100 20 115/71 (86) 96 03/21/19 12:00 114 03/21/19 12:00 98.3 117 20 111/79 (90) 95 03/21/19 10:33 134 143/95 Intake and Output 03/21/19 03/22/19 18:59 06:59 Output Total 400 ml 600 ml Balance -400 ml -600 ml Output Urine Total 400 ml 600 ml # Voids 1 Laboratory Tests Test 03/22/19 06:04 White Blood Count 9.3 K/UL (4.8-10.8) Red Blood Count 3.72 M/UL (4.70-6.10) L Hemoglobin 11.3 G/DL (14.2-18.0) L Hematocrit 34.1 % (42.0-52.0) L Mean Corpuscular Volume 91 FL (80-99) Mean Corpuscular Hemoglobin 30.4 PG (27.0-31.0) Mean Corpuscular Hemoglobin Concent 33.2 G/DL (32.0-36.0) Red Cell Distribution Width 12.3 % (11.6-14.8) Platelet Count 341 K/UL (150-450) Mean Platelet Volume 7.0 FL (6.5-10.1) Neutrophils (%) (Auto) 57.7 % (45.0-75.0) Lymphocytes (%) (Auto) 29.0 % (20.0-45.0) Monocytes (%) (Auto) 9.4 % (1.0-10.0) Eosinophils (%) (Auto) 2.5 % (0.0-3.0) Basophils (%) (Auto) 1.4 % (0.0-2.0) Sodium Level 152 MMOL/L (136-145) H Potassium Level 3.2 MMOL/L (3.5-5.1) L Chloride Level 114 MMOL/L (98-107) H Carbon Dioxide Level 27 MMOL/L (21-32) Anion Gap 11 mmol/L (5-15) Blood Urea Nitrogen 26 mg/dL (7-18) H Creatinine 0.9 MG/DL (0.55-1.30) Estimat Glomerular Filtration Rate > 60 mL/min (>60) Glucose Level 123 MG/DL (74-106) H Hemoglobin A1c 5.1 % (4.3-6.0) Uric Acid 4.4 MG/DL (2.6-7.2) Calcium Level 9.8 MG/DL (8.5-10.1) Phosphorus Level 3.9 MG/DL (2.5-4.9) Magnesium Level 2.1 MG/DL (1.8-2.4) Iron Level 67 ug/dL (50-175) Total Iron Binding Capacity 221 ug/dL (250-450) L Percent Iron Saturation 30 % (15-50) Unsaturated Iron Binding 154 ug/dL (112-346) Ferritin 145 NG/ML (8-388) Total Bilirubin 0.5 MG/DL (0.2-1.0) Aspartate Amino Transf (AST/SGOT) 23 U/L (15-37) Alanine Aminotransferase (ALT/SGPT) 60 U/L (12-78) Alkaline Phosphatase 68 U/L (46-116) Troponin I 0.023 ng/mL (0.000-0.056) C-Reactive Protein, Quantitative 1.6 mg/dL (0.00-0.90) H Pro-B-Type Natriuretic Peptide 70 pg/mL (0-125) Total Protein 6.8 G/DL (6.4-8.2) Albumin 3.1 G/DL (3.4-5.0) L Globulin 3.7 g/dL Albumin/Globulin Ratio 0.8 (1.0-2.7) L Triglycerides Level 184 MG/DL (30-150) H Cholesterol Level 134 MG/DL (< 200) LDL Cholesterol 78 mg/dL (<100) HDL Cholesterol 25 MG/DL (40-60) L Cholesterol/HDL Ratio 5.4 (3.3-4.4) H Vitamin B12 Level 1449 PG/ML (193-986) H Folate 68.4 NG/ML (8.6-58.9) H Thyroid Stimulating Hormone (TSH) 1.019 uiU/mL (0.358-3.740) Microbiology Date/Time Source Procedure Growth Status 03/21/19 00:13 Blood Blood Culture - Preliminary NO GROWTH AFTER 24 HOURS Resulted 03/20/19 23:30 Blood Blood Culture - Preliminary NO GROWTH AFTER 24 HOURS Resulted 03/20/19 23:59 Nasal Nares MRSA Culture - Final Staphylococcus Aureus - Mrsa Complete Objective HEAD AND NECK: No JVD. Tracheostomy site in the past closed. LUNGS: Coarse rhonchi. CARDIOVASCULAR: Tachycardic S1 and S2 with no gallop. ABDOMEN: Soft, status post G-tube. EXTREMITIES: No pitting edema. Jim Manjarrez MD March 22, 2019 10:06
[2019-03-22] MEDS: Vancomycin 1.25gm Premix IVPB SCH (10:24)
[2019-03-22 12:00] VITALS: BP 100/69
--- NOTE | 2019-03-22 13:51 | Nephrology Progress Note ---
Assessment/Plan Problem List: (1) Acute prerenal azotemia (2) Dehydration (3) Seizure disorder (4) Anoxic brain injury (5) Sepsis Assessment Renal failure: Dehydration Hypernatremia, Free water deficit Sepsis Acute metabolic encephalopathy PEG Sz disorder HTN Plan start GT feeding D5W IV Fluid- Coreg GT monitor electrolytes per orders Objective Objective Last 24 Hour Vital Signs Date Time Temp Pulse Resp B/P (MAP) Pulse Ox O2 Delivery O2 Flow Rate FiO2 03/22/19 08:56 92 111/77 03/22/19 08:07 Room Air 03/22/19 08:00 99.3 92 20 111/77 (88) 96 03/22/19 07:49 92 03/22/19 04:00 98.9 102 17 135/79 (97) 96 03/22/19 04:00 93 03/22/19 00:00 101 03/22/19 00:00 98.7 108 17 125/77 (93) 95 03/21/19 22:51 106 20 97 Room Air 21 03/21/19 21:00 Room Air 03/21/19 20:28 110 123/80 03/21/19 20:00 98.9 110 18 123/80 (94) 95 03/21/19 20:00 106 03/21/19 16:00 102 03/21/19 16:00 99.4 100 20 115/71 (86) 96 Intake and Output 03/21/19 03/22/19 19:00 07:00 Output Total 400 ml 600 ml Balance -400 ml -600 ml Output Urine Total 400 ml 600 ml # Voids 1 Laboratory Tests 03/22/19 06:04: White Blood Count 9.3, Red Blood Count 3.72L, Hemoglobin 11.3L, Hematocrit 34.1L , Mean Corpuscular Volume 91, Mean Corpuscular Hemoglobin 30.4, Mean Corpuscular Hemoglobin Concent 33.2, Red Cell Distribution Width 12.3, Platelet Count 341, Mean Platelet Volume 7.0, Neutrophils (%) (Auto) 57.7, Lymphocytes (% ) (Auto) 29.0, Monocytes (%) (Auto) 9.4, Eosinophils (%) (Auto) 2.5, Basophils ( %) (Auto) 1.4, Sodium Level 152H, Potassium Level 3.2L, Chloride Level 114H, Carbon Dioxide Level 27, Anion Gap 11, Blood Urea Nitrogen 26H, Creatinine 0.9, Estimat Glomerular Filtration Rate > 60, Glucose Level 123H, Hemoglobin A1c 5.1 , Uric Acid 4.4, Calcium Level 9.8, Phosphorus Level 3.9, Magnesium Level 2.1, Iron Level 67, Total Iron Binding Capacity 221L, Percent Iron Saturation 30, Unsaturated Iron Binding 154, Ferritin 145, Total Bilirubin 0.5, Aspartate Amino Transf (AST/SGOT) 23, Alanine Aminotransferase (ALT/SGPT) 60, Alkaline Phosphatase 68, Troponin I 0.023, C-Reactive Protein, Quantitative 1.6H, Pro-B- Type Natriuretic Peptide 70, Total Protein 6.8, Albumin 3.1L, Globulin 3.7, Albumin/Globulin Ratio 0.8L, Triglycerides Level 184H, Cholesterol Level 134, LDL Cholesterol 78, HDL Cholesterol 25L, Cholesterol/HDL Ratio 5.4H, Vitamin B12 Level 1449H, Folate 68.4H, Thyroid Stimulating Hormone (TSH) 1.019 Height (Feet): 5 Height (Inches): 7.00 Weight (Pounds): 110 Janes Barros MD March 22, 2019 13:51
--- NOTE | 2019-03-22 13:54 | Neurology Progress Note ---
Interim History Interim History ROS Limited/Unobtainable: Yes Complaints: AMS Objective Physical Exam Last Vital Signs Date Time Temp Pulse Resp B/P (MAP) Pulse Ox O2 Delivery O2 Flow Rate FiO2 03/22/19 08:56 92 111/77 03/22/19 08:07 Room Air 03/22/19 08:00 99.3 20 96 03/21/19 22:51 21 Laboratory Tests Test 03/22/19 06:04 White Blood Count 9.3 K/UL (4.8-10.8) Red Blood Count 3.72 M/UL (4.70-6.10) L Hemoglobin 11.3 G/DL (14.2-18.0) L Hematocrit 34.1 % (42.0-52.0) L Mean Corpuscular Volume 91 FL (80-99) Mean Corpuscular Hemoglobin 30.4 PG (27.0-31.0) Mean Corpuscular Hemoglobin Concent 33.2 G/DL (32.0-36.0) Red Cell Distribution Width 12.3 % (11.6-14.8) Platelet Count 341 K/UL (150-450) Mean Platelet Volume 7.0 FL (6.5-10.1) Neutrophils (%) (Auto) 57.7 % (45.0-75.0) Lymphocytes (%) (Auto) 29.0 % (20.0-45.0) Monocytes (%) (Auto) 9.4 % (1.0-10.0) Eosinophils (%) (Auto) 2.5 % (0.0-3.0) Basophils (%) (Auto) 1.4 % (0.0-2.0) Sodium Level 152 MMOL/L (136-145) H Potassium Level 3.2 MMOL/L (3.5-5.1) L Chloride Level 114 MMOL/L (98-107) H Carbon Dioxide Level 27 MMOL/L (21-32) Anion Gap 11 mmol/L (5-15) Blood Urea Nitrogen 26 mg/dL (7-18) H Creatinine 0.9 MG/DL (0.55-1.30) Estimat Glomerular Filtration Rate > 60 mL/min (>60) Glucose Level 123 MG/DL (74-106) H Hemoglobin A1c 5.1 % (4.3-6.0) Uric Acid 4.4 MG/DL (2.6-7.2) Calcium Level 9.8 MG/DL (8.5-10.1) Phosphorus Level 3.9 MG/DL (2.5-4.9) Magnesium Level 2.1 MG/DL (1.8-2.4) Iron Level 67 ug/dL (50-175) Total Iron Binding Capacity 221 ug/dL (250-450) L Percent Iron Saturation 30 % (15-50) Unsaturated Iron Binding 154 ug/dL (112-346) Ferritin 145 NG/ML (8-388) Total Bilirubin 0.5 MG/DL (0.2-1.0) Aspartate Amino Transf (AST/SGOT) 23 U/L (15-37) Alanine Aminotransferase (ALT/SGPT) 60 U/L (12-78) Alkaline Phosphatase 68 U/L (46-116) Troponin I 0.023 ng/mL (0.000-0.056) C-Reactive Protein, Quantitative 1.6 mg/dL (0.00-0.90) H Pro-B-Type Natriuretic Peptide 70 pg/mL (0-125) Total Protein 6.8 G/DL (6.4-8.2) Albumin 3.1 G/DL (3.4-5.0) L Globulin 3.7 g/dL Albumin/Globulin Ratio 0.8 (1.0-2.7) L Triglycerides Level 184 MG/DL (30-150) H Cholesterol Level 134 MG/DL (< 200) LDL Cholesterol 78 mg/dL (<100) HDL Cholesterol 25 MG/DL (40-60) L Cholesterol/HDL Ratio 5.4 (3.3-4.4) H Vitamin B12 Level 1449 PG/ML (193-986) H Folate 68.4 NG/ML (8.6-58.9) H Thyroid Stimulating Hormone (TSH) 1.019 uiU/mL (0.358-3.740) Impression/Recommendations Problems: (1) Seizure disorder (2) Anoxic brain injury (3) Sepsis (4) Acute hypernatremia (5) Dehydration (6) Encephalopathy due to metabolic factor or toxin (7) Acute metabolic encephalopathy (8) Weakness generalized (9) Schizoaffective disorder Status: Chey Hauser.PJosef March 22, 2019 13:54
[2019-03-22] MEDS ORDERED: Acetaminophen 650mg/20.3ml GT PRN (15:45)
[2019-03-22 16:00] VITALS: BP 106/64
[2019-03-22] MEDS ORDERED: Tubing IV Secondary IV ONE (16:53)
[2019-03-22] MEDS ORDERED: NS 275ml ONE (16:53)
--- NOTE | 2019-03-22 17:47 | Neurology Progress Note ---
Interim History Interim History ROS Limited/Unobtainable: Yes Complaints: AMS Events: This visit was performed on March 22, [address] Jin Interim History NO seizure activity noted, MRI performed today . Review of Systems All Systems: reviewed and negative except above Objective Physical Exam Last Vital Signs Date Time Temp Pulse Resp B/P (MAP) Pulse Ox O2 Delivery O2 Flow Rate FiO2 03/22/19 16:00 97.8 83 20 106/64 (78) 94 03/22/19 08:07 Room Air 03/21/19 22:51 21 Laboratory Tests Test 03/22/19 06:04 White Blood Count 9.3 K/UL (4.8-10.8) Red Blood Count 3.72 M/UL (4.70-6.10) L Hemoglobin 11.3 G/DL (14.2-18.0) L Hematocrit 34.1 % (42.0-52.0) L Mean Corpuscular Volume 91 FL (80-99) Mean Corpuscular Hemoglobin 30.4 PG (27.0-31.0) Mean Corpuscular Hemoglobin Concent 33.2 G/DL (32.0-36.0) Red Cell Distribution Width 12.3 % (11.6-14.8) Platelet Count 341 K/UL (150-450) Mean Platelet Volume 7.0 FL (6.5-10.1) Neutrophils (%) (Auto) 57.7 % (45.0-75.0) Lymphocytes (%) (Auto) 29.0 % (20.0-45.0) Monocytes (%) (Auto) 9.4 % (1.0-10.0) Eosinophils (%) (Auto) 2.5 % (0.0-3.0) Basophils (%) (Auto) 1.4 % (0.0-2.0) Sodium Level 152 MMOL/L (136-145) H Potassium Level 3.2 MMOL/L (3.5-5.1) L Chloride Level 114 MMOL/L (98-107) H Carbon Dioxide Level 27 MMOL/L (21-32) Anion Gap 11 mmol/L (5-15) Blood Urea Nitrogen 26 mg/dL (7-18) H Creatinine 0.9 MG/DL (0.55-1.30) Estimat Glomerular Filtration Rate > 60 mL/min (>60) Glucose Level 123 MG/DL (74-106) H Hemoglobin A1c 5.1 % (4.3-6.0) Uric Acid 4.4 MG/DL (2.6-7.2) Calcium Level 9.8 MG/DL (8.5-10.1) Phosphorus Level 3.9 MG/DL (2.5-4.9) Magnesium Level 2.1 MG/DL (1.8-2.4) Iron Level 67 ug/dL (50-175) Total Iron Binding Capacity 221 ug/dL (250-450) L Percent Iron Saturation 30 % (15-50) Unsaturated Iron Binding 154 ug/dL (112-346) Ferritin 145 NG/ML (8-388) Total Bilirubin 0.5 MG/DL (0.2-1.0) Aspartate Amino Transf (AST/SGOT) 23 U/L (15-37) Alanine Aminotransferase (ALT/SGPT) 60 U/L (12-78) Alkaline Phosphatase 68 U/L (46-116) Troponin I 0.023 ng/mL (0.000-0.056) C-Reactive Protein, Quantitative 1.6 mg/dL (0.00-0.90) H Pro-B-Type Natriuretic Peptide 70 pg/mL (0-125) Total Protein 6.8 G/DL (6.4-8.2) Albumin 3.1 G/DL (3.4-5.0) L Globulin 3.7 g/dL Albumin/Globulin Ratio 0.8 (1.0-2.7) L Triglycerides Level 184 MG/DL (30-150) H Cholesterol Level 134 MG/DL (< 200) LDL Cholesterol 78 mg/dL (<100) HDL Cholesterol 25 MG/DL (40-60) L Cholesterol/HDL Ratio 5.4 (3.3-4.4) H Vitamin B12 Level 1449 PG/ML (193-986) H Folate 68.4 NG/ML (8.6-58.9) H Thyroid Stimulating Hormone (TSH) 1.019 uiU/mL (0.358-3.740) General: well developed, well nourished Head: normocophalic Neck: other EENT: other Neurologic Exam Mental Status: other Speech: other Language: other Cranial Nerve II: fundus normal, visual roberts, no papilledema, other Cranial Nerves III, IV, : PERRLA, EOMI, other Cranial Nerve V: other Cranial Nerve VII: other Cranial Nerve VIII: other Cranial Nerve IX: other Cranial Nerve XI: other Cranial Nerve XII: other Motor System: other Sensory: other Coordination: other - Patient has tracheostomy scar at throat, is tracking intermittently with his eyes, he doesn't follow commands, has rigid tone and spasticity in all extremities and triple flexes in LEs bilaterally with mild decerebrate posturing in UEs on noxious stim. Impression/Recommendations Problems: (1) Seizure disorder (2) Anoxic brain injury (3) Sepsis (4) Acute hypernatremia (5) Dehydration (6) Encephalopathy due to metabolic factor or toxin (7) Acute metabolic encephalopathy (8) Weakness generalized (9) Schizoaffective disorder Status: stable, fever Recommendations Q4 Hour obs Abx as per ID EEG pending completion Na 135-145 Telemetry monitoring Q2 hour neuro OBS EEG Routine MRI Brain w/o contrast - results pending Maintain normothermia with Tylenol and cooling blanket Maintain normoglycemia with ISS SBP<140 Continue Keppra 1000 mg BID - Ativan 1mg PRN for seizure Replete/ Replace EUNICE rivero Samantha N.P. March 22, 2019 17:47
[2019-03-22 20:00] VITALS: BP 105/61
[2019-03-22] MEDS: Carvedilol 12.5mg tab GT SCH (21:00)
--- NOTE | 2019-03-22 22:10 | General Progress Note ---
Assessment/Plan Problem List: (1) Schizoaffective disorder ICD Codes: F25.9 - Schizoaffective disorder, unspecified SNOMED: 55613374 (2) Seizure disorder ICD Codes: G40.909 - Epilepsy, unspecified, not intractable, without status epilepticus SNOMED: 955028833 (3) Dehydration ICD Codes: E86.0 - Dehydration SNOMED: 30877479, 001098190 (4) Sepsis ICD Codes: A41.9 - Sepsis, unspecified organism SNOMED: 45568439, 180714071 Qualifiers: Qualified Codes: A41.9 - Sepsis, unspecified organism (5) Acute metabolic encephalopathy ICD Codes: G93.41 - Metabolic encephalopathy SNOMED: 98053210, 904143126 Status: progressing, fever Assessment/Plan: sepsis encephalopathy abx per id reviewed chart and labs and meds Subjective ROS Limited/Unobtainable: Yes Allergies: Coded Allergies: No Known Allergies (Unverified , 08/20/18) Objective Last 24 Hour Vital Signs Date Time Temp Pulse Resp B/P (MAP) Pulse Ox O2 Delivery O2 Flow Rate FiO2 03/22/19 20:28 86 20 95 Room Air 03/22/19 16:00 97.8 83 20 106/64 (78) 94 03/22/19 15:17 89 03/22/19 12:00 97.9 89 20 100/69 (79) 98 03/22/19 11:56 85 03/22/19 08:56 92 111/77 03/22/19 08:07 Room Air 03/22/19 08:00 99.3 92 20 111/77 (88) 96 03/22/19 07:49 92 03/22/19 04:00 98.9 102 17 135/79 (97) 96 03/22/19 04:00 93 03/22/19 00:00 101 03/22/19 00:00 98.7 108 17 125/77 (93) 95 03/21/19 22:51 106 20 97 Room Air 21 Intake and Output 03/21/19 03/22/19 18:59 06:59 Output Total 400 ml 600 ml Balance -400 ml -600 ml Output Urine Total 400 ml 600 ml # Voids 1 Laboratory Tests 03/22/19 06:04: White Blood Count 9.3, Red Blood Count 3.72L, Hemoglobin 11.3L, Hematocrit 34.1L , Mean Corpuscular Volume 91, Mean Corpuscular Hemoglobin 30.4, Mean Corpuscular Hemoglobin Concent 33.2, Red Cell Distribution Width 12.3, Platelet Count 341, Mean Platelet Volume 7.0, Neutrophils (%) (Auto) 57.7, Lymphocytes (% ) (Auto) 29.0, Monocytes (%) (Auto) 9.4, Eosinophils (%) (Auto) 2.5, Basophils ( %) (Auto) 1.4, Sodium Level 152H, Potassium Level 3.2L, Chloride Level 114H, Carbon Dioxide Level 27, Anion Gap 11, Blood Urea Nitrogen 26H, Creatinine 0.9, Estimat Glomerular Filtration Rate > 60, Glucose Level 123H, Hemoglobin A1c 5.1 , Uric Acid 4.4, Calcium Level 9.8, Phosphorus Level 3.9, Magnesium Level 2.1, Iron Level 67, Total Iron Binding Capacity 221L, Percent Iron Saturation 30, Unsaturated Iron Binding 154, Ferritin 145, Total Bilirubin 0.5, Aspartate Amino Transf (AST/SGOT) 23, Alanine Aminotransferase (ALT/SGPT) 60, Alkaline Phosphatase 68, Troponin I 0.023, C-Reactive Protein, Quantitative 1.6H, Pro-B- Type Natriuretic Peptide 70, Total Protein 6.8, Albumin 3.1L, Globulin 3.7, Albumin/Globulin Ratio 0.8L, Triglycerides Level 184H, Cholesterol Level 134, LDL Cholesterol 78, HDL Cholesterol 25L, Cholesterol/HDL Ratio 5.4H, Vitamin B12 Level 1449H, Folate 68.4H, Thyroid Stimulating Hormone (TSH) 1.019 03/22/19 21:45: Vancomycin Level Trough [Pending] Height (Feet): 5 Height (Inches): 7.00 Weight (Pounds): 110 Neck: supple Cardiovascular: regular rhythm Respiratory/Chest: lungs clear Lenin Wyatt MD March 22, 2019 22:09
[2019-03-22] MEDS: Sennosides 8.6mg tab GT SCH (22:27)
[2019-03-23] VITALS (7 sets, daily range): BP systolic 108–161; BP diastolic 58–73
--- NOTE | 2019-03-23 02:00 | Consultation ---
DATE OF CONSULTATION: 03/22/2019 INFECTIOUS DISEASE CONSULTATION CONSULTING PHYSICIAN: Yash Shay M.D. PRIMARY ATTENDING PHYSICIAN: Lenin Wyatt M.D. REASON FOR CONSULTATION: Sepsis. HISTORY OF PRESENT ILLNESS: This is a 39-year-old male, admitted on 03/21/2019 from a [place] [facility] facility because of fever. The patient has a temperature of up to 101.8 in the ER, leukocytosis, tachycardia, empirically started on IV antibiotic, is now better. PAST MEDICAL HISTORY: Significant for anoxic brain injury, has history of bipolar, schizoaffective seizure disorder, has G-tube placement, hypertension, past history of tracheostomy, removed. ALLERGIES: No known drug allergy. MEDICATIONS: Carvedilol, potassium chloride, Senokot, Keppra, Colace, Zosyn, vancomycin, Aricept, vancomycin, Bisacodyl, albuterol, ipratropium inhaler, and magnesium hydroxide. SOCIAL HISTORY: , [facility] resident with poor mental and functional status. No other history obtainable by the patient. According to previous note of hospitalization in 2018, he was a smoker and used to drink alcohol, but no history of drug abuse. REVIEW OF SYSTEMS: Unobtainable. PHYSICAL EXAMINATION: VITAL SIGNS: Temperature 99.3, pulse 92, blood pressure is 111/77. GENERAL APPEARANCE: No acute distress. Nonverbal. HEAD AND NECK: Smoaks conjunctiva. Has crusty tongue and poor oral hygiene. A scar of tracheostomy that is well healed. LUNGS: Clear. HEART: Normal rate. ABDOMEN: Soft. G-tube placement. GENITOURINARY: Has Hansen catheter. EXTREMITIES: He has no edema. NEUROLOGIC: Opens eyes, noncommunicative. LABORATORY AND DIAGNOSTIC DATA: WBC today is 9.3, coming from 14.1 from admission, hemoglobin 11.3, hematocrit 34.1, platelets 341,000. Sodium 152, potassium 3.2, chloride 114, BUN 26, creatinine 0.9, glucose 123. LFT within normal limits. TSH normal. HDL cholesterol was low. Chest x-ray is negative for pneumonia. UA showed wbc's of 2 to 4, rbc of 2 to 4, nitrite negative. IMPRESSION: 1. Sepsis with fever. 2. Leukocytosis. 3. Tachycardia. The patient's current condition is improving with empiric antibiotic treatment. 4. He has anoxic encephalopathy. 5. MRSA colonization. 6. Hypernatremia and azotemia. 7. Seizure disorder. 8. Hypertension. RECOMMENDATION: Continue Zosyn and vancomycin. Obtain abdominal ultrasound to rule out intraabdominal source of infection. We will follow up the cultures and narrow antibiotics soon. At the end of my exam, I thank Dr. Wyatt for involving me in the care of this patient. Yash Shay M.D. DR: YFN JOB#: [id number] CC: TOR
[2019-03-23] MEDS: Piperacillin/Tazobactam 3.375 GM in NS 110 ML IVPB SCH ×3 (04:36→21:27)
[2019-03-23 06:36] LABS: BASOPHILS % (AUTO) 1.2 % (0.0-2.0); EOSINOPHILS % (AUTO) 3.6 % (0.0-3.0); HEMATOCRIT 33.1 % (42.0-52.0); HEMOGLOBIN 11.3 G/DL (14.2-18.0); LYMPHOCYTES % (AUTO) 20.9 % (20.0-45.0); MEAN CORPUSCULAR VOLUME 89 FL (80-99); MONOCYTES % (AUTO) 11.4 % (1.0-10.0); PLATELET COUNT 329 K/UL (150-450); RED BLOOD COUNT 3.71 M/UL (4.70-6.10); RED CELL DISTRIBUTION WIDTH 11.8 % (11.6-14.8); WHITE BLOOD COUNT 9.2 K/UL (4.8-10.8)
[2019-03-23 06:44] LABS: ALANINE AMINOTRANSFERASE 51 U/L (12-78); ALBUMIN 2.8 G/DL (3.4-5.0); ALBUMIN/GLOBULIN RATIO 0.8 (1.0-2.7); ALKALINE PHOSPHATASE 79 U/L (46-116); ANION GAP 12 mmol/L (5-15); ASPARTATE AMINO TRANSFERASE 22 U/L (15-37); BILIRUBIN,TOTAL 0.4 MG/DL (0.2-1.0); BLOOD UREA NITROGEN 37 mg/dL (7-18); CALCIUM 9.4 MG/DL (8.5-10.1); CARBON DIOXIDE 25 MMOL/L (21-32); CHLORIDE 109 MMOL/L (98-107); CREATININE 2.1 MG/DL (0.55-1.30); PHOSPHORUS 5.6 MG/DL (2.5-4.9); POTASSIUM 3.3 MMOL/L (3.5-5.1); SODIUM 146 MMOL/L (136-145)
[2019-03-23] MEDS ORDERED: Vancomycin 750mg/NS 275ml IVPB SCH ×2 (08:00)
[2019-03-23] MEDS ORDERED: Donepezil 10mg tab GT SCH (09:00)
[2019-03-23] MEDS ORDERED: Thiamine 100mg tab NG SCH (09:00)
[2019-03-23] MEDS ORDERED: Miralax 17gm pkt NG SCH (09:00)
[2019-03-23] MEDS: Docusate 100mg/10ml Liq GT SCH ×3 (09:47→17:35)
[2019-03-23] MEDS: levETIRAcetam 500mg/5ml Liquid ORAL SCH ×2 (09:48→21:15)
[2019-03-23] MEDS: Carvedilol 12.5mg tab GT SCH ×2 (09:49→21:15)
--- NOTE | 2019-03-23 10:24 | Diagnostic Imaging Report ---
Indication: Abnormal liver function tests, abnormal renal function tests Technique: Connolly-scale and duplex images of the upper abdomen were obtained Comparison: none Findings: Gallbladder is unremarkable, without stones, wall thickening, nor pericholecystic fluid. Sonographic Ballard's sign is negative. Common bile duct measures to mm in diameter. No intrahepatic biliary ductal dilatation. Liver demonstrates normal echogenicity, no focal abnormality. Portal vein and hepatic veins are patent. Pancreas is unremarkable. Spleen is unremarkable. Left kidney measures 12 cm in length. Right kidney measures 13 cm length. Both kidneys demonstrate normal echogenicity. There is no hydronephrosis. Right kidney demonstrates a cyst . Non-aneurysmal abdominal aorta . Impression: Essentially unremarkable exam Incidental finding right renal cyst
[2019-03-23] MEDS ORDERED: LORazepam Inj 2mg/ml 1ml IV SCH (11:00)
--- NOTE | 2019-03-23 11:53 | Cardiac Electrophysiology PN ---
Assessment/Plan Assessment/Plan 1. Sinus tachycardia due to severe dehydration as BUN and creatinine ratio was around 50 on admission with sodium of 155. Better with iv fluids per Dr. Barros. Continue Coreg. Echocardiogram EF 60% 2. Hypertension. Continue Coreg 12.5 mg b.i.d. 3. Sepsis, on IV antibiotic 4. Dysphagia, status post percutaneous endoscopic gastrostomy placement. 5. History of anoxic brain injury and seizures. 6. Dehydration on D5W at 75 cc/hr DW RN OK to go off tele for MRI Subjective Subjective In NSR today. Nonverbal.MRI brain pending. Objective Last 24 Hour Vital Signs Date Time Temp Pulse Resp B/P (MAP) Pulse Ox O2 Delivery O2 Flow Rate FiO2 03/23/19 09:49 76 131/69 03/23/19 09:00 Room Air 03/23/19 08:21 80 16 95 Room Air 03/23/19 08:00 98.8 76 20 131/69 (89) 97 03/23/19 04:00 98.2 84 16 108/58 (75) 96 03/23/19 04:00 84 03/23/19 00:00 90 03/23/19 00:00 98.4 66 16 161/64 (96) 96 03/22/19 21:00 Room Air 03/22/19 21:00 93 105/61 03/22/19 20:28 86 20 95 Room Air 03/22/19 20:00 85 03/22/19 20:00 98.2 93 18 105/61 (76) 96 03/22/19 16:00 97.8 83 20 106/64 (78) 94 03/22/19 15:17 89 03/22/19 12:00 97.9 89 20 100/69 (79) 98 03/22/19 11:56 85 Intake and Output 03/22/19 03/23/19 19:00 07:00 Intake Total 280 ml Output Total 450 ml 600 ml Balance -170 ml -600 ml Free Water 200 ml Tube Feeding 80 ml Output Urine Total 450 ml 600 ml # Bowel Movements 2 Laboratory Tests Test 03/22/19 21:45 03/23/19 05:15 Vancomycin Level Trough 29.4 ug/mL (5.0-12.0) H White Blood Count 9.2 K/UL (4.8-10.8) Red Blood Count 3.71 M/UL (4.70-6.10) L Hemoglobin 11.3 G/DL (14.2-18.0) L Hematocrit 33.1 % (42.0-52.0) L Mean Corpuscular Volume 89 FL (80-99) Mean Corpuscular Hemoglobin 30.4 PG (27.0-31.0) Mean Corpuscular Hemoglobin Concent 34.0 G/DL (32.0-36.0) Red Cell Distribution Width 11.8 % (11.6-14.8) Platelet Count 329 K/UL (150-450) Mean Platelet Volume 7.4 FL (6.5-10.1) Neutrophils (%) (Auto) 63.0 % (45.0-75.0) Lymphocytes (%) (Auto) 20.9 % (20.0-45.0) Monocytes (%) (Auto) 11.4 % (1.0-10.0) H Eosinophils (%) (Auto) 3.6 % (0.0-3.0) H Basophils (%) (Auto) 1.2 % (0.0-2.0) Sodium Level 146 MMOL/L (136-145) H Potassium Level 3.3 MMOL/L (3.5-5.1) L Chloride Level 109 MMOL/L (98-107) H Carbon Dioxide Level 25 MMOL/L (21-32) Anion Gap 12 mmol/L (5-15) Blood Urea Nitrogen 37 mg/dL (7-18) H Creatinine 2.1 MG/DL (0.55-1.30) #H Estimat Glomerular Filtration Rate 35.0 mL/min (>60) Glucose Level 118 MG/DL (74-106) H Uric Acid 4.6 MG/DL (2.6-7.2) Calcium Level 9.4 MG/DL (8.5-10.1) Phosphorus Level 5.6 MG/DL (2.5-4.9) H Magnesium Level 2.2 MG/DL (1.8-2.4) Total Bilirubin 0.4 MG/DL (0.2-1.0) Aspartate Amino Transf (AST/SGOT) 22 U/L (15-37) Alanine Aminotransferase (ALT/SGPT) 51 U/L (12-78) Alkaline Phosphatase 79 U/L (46-116) Total Protein 6.4 G/DL (6.4-8.2) Albumin 2.8 G/DL (3.4-5.0) L Globulin 3.6 g/dL Albumin/Globulin Ratio 0.8 (1.0-2.7) L Microbiology Date/Time Source Procedure Growth Status 03/21/19 00:13 Blood Blood Culture - Preliminary NO GROWTH AFTER 48 HOURS Resulted 03/20/19 23:30 Blood Blood Culture - Preliminary NO GROWTH AFTER 48 HOURS Resulted 03/20/19 23:59 Nasal Nares MRSA Culture - Final Staphylococcus Aureus - Mrsa Complete 03/20/19 23:59 Rectum - Final NO CARBAPENEM-RESISTANT ENTEROBACTERI... Complete 03/20/19 23:59 Rectum VRE Culture - Final NO VANCOMYCIN RESISTANT ENTEROCOCCUS ... Complete Objective HEAD AND NECK: No JVD. Old tracheostomy site closed. LUNGS: Coarse rhonchi. CARDIOVASCULAR: Tachycardic S1 and S2 with no gallop. ABDOMEN: Soft, status post G-tube. EXTREMITIES: No pitting edema. Jim Manjarrez MD March 23, 2019 11:53
--- NOTE | 2019-03-23 13:39 | Infectious Diseases Prog Note ---
Assessment/Plan Assessment/Plan IMPRESSION: 1. Sepsis 2. Leukocytosis resolved 3. Tachycardia. resolved 4. He has anoxic encephalopathy. 5. MRSA colonization. 6. Hypernatremia and azotemia. 7. Seizure disorder. 8. Hypertension. RECOMMENDATION: Continue Zosyn Discontinue vancomycin. abdominal ultrasound was negative Subjective ROS Limited/Unobtainable: Yes Neurologic: Reports: other - more alert Allergies: Coded Allergies: No Known Allergies (Unverified , 08/20/18) Objective Vital Signs Last 24 Hour Vital Signs Date Time Temp Pulse Resp B/P (MAP) Pulse Ox O2 Delivery O2 Flow Rate FiO2 03/23/19 12:00 98.9 80 20 136/71 (92) 98 03/23/19 11:28 79 03/23/19 09:49 76 131/69 03/23/19 09:00 Room Air 03/23/19 08:21 80 16 95 Room Air 03/23/19 08:00 98.8 76 20 131/69 (89) 97 03/23/19 07:31 90 03/23/19 04:00 98.2 84 16 108/58 (75) 96 03/23/19 04:00 84 03/23/19 00:00 90 03/23/19 00:00 98.4 66 16 161/64 (96) 96 03/22/19 21:00 Room Air 03/22/19 21:00 93 105/61 03/22/19 20:28 86 20 95 Room Air 03/22/19 20:00 85 03/22/19 20:00 98.2 93 18 105/61 (76) 96 03/22/19 16:00 97.8 83 20 106/64 (78) 94 03/22/19 15:17 89 Height (Feet): 5 Height (Inches): 7.00 Weight (Pounds): 109 General Appearance: no acute distress HEENT: mucous membranes moist Respiratory/Chest: lungs clear Cardiovascular: normal rate Abdomen: soft, non tender Extremities: no edema Neurologic/Psychiatric: alert, aphasia Microbiology Date/Time Source Procedure Growth Status 03/21/19 00:13 Blood Blood Culture - Preliminary NO GROWTH AFTER 48 HOURS Resulted 03/20/19 23:30 Blood Blood Culture - Preliminary NO GROWTH AFTER 48 HOURS Resulted 03/20/19 23:59 Nasal Nares MRSA Culture - Final Staphylococcus Aureus - Mrsa Complete 03/20/19 23:59 Rectum - Final NO CARBAPENEM-RESISTANT ENTEROBACTERI... Complete 03/20/19 23:59 Rectum VRE Culture - Final NO VANCOMYCIN RESISTANT ENTEROCOCCUS ... Complete Laboratory Tests Test 03/22/19 21:45 03/23/19 05:15 Vancomycin Level Trough 29.4 ug/mL (5.0-12.0) H White Blood Count 9.2 K/UL (4.8-10.8) Red Blood Count 3.71 M/UL (4.70-6.10) L Hemoglobin 11.3 G/DL (14.2-18.0) L Hematocrit 33.1 % (42.0-52.0) L Mean Corpuscular Volume 89 FL (80-99) Mean Corpuscular Hemoglobin 30.4 PG (27.0-31.0) Mean Corpuscular Hemoglobin Concent 34.0 G/DL (32.0-36.0) Red Cell Distribution Width 11.8 % (11.6-14.8) Platelet Count 329 K/UL (150-450) Mean Platelet Volume 7.4 FL (6.5-10.1) Neutrophils (%) (Auto) 63.0 % (45.0-75.0) Lymphocytes (%) (Auto) 20.9 % (20.0-45.0) Monocytes (%) (Auto) 11.4 % (1.0-10.0) H Eosinophils (%) (Auto) 3.6 % (0.0-3.0) H Basophils (%) (Auto) 1.2 % (0.0-2.0) Sodium Level 146 MMOL/L (136-145) H Potassium Level 3.3 MMOL/L (3.5-5.1) L Chloride Level 109 MMOL/L (98-107) H Carbon Dioxide Level 25 MMOL/L (21-32) Anion Gap 12 mmol/L (5-15) Blood Urea Nitrogen 37 mg/dL (7-18) H Creatinine 2.1 MG/DL (0.55-1.30) #H Estimat Glomerular Filtration Rate 35.0 mL/min (>60) Glucose Level 118 MG/DL (74-106) H Uric Acid 4.6 MG/DL (2.6-7.2) Calcium Level 9.4 MG/DL (8.5-10.1) Phosphorus Level 5.6 MG/DL (2.5-4.9) H Magnesium Level 2.2 MG/DL (1.8-2.4) Total Bilirubin 0.4 MG/DL (0.2-1.0) Aspartate Amino Transf (AST/SGOT) 22 U/L (15-37) Alanine Aminotransferase (ALT/SGPT) 51 U/L (12-78) Alkaline Phosphatase 79 U/L (46-116) Total Protein 6.4 G/DL (6.4-8.2) Albumin 2.8 G/DL (3.4-5.0) L Globulin 3.6 g/dL Albumin/Globulin Ratio 0.8 (1.0-2.7) L Current Medications Medications (Trade) Dose Ordered Sig/Yohannes Route PRN Reason Start Time Stop Time Status Last Admin Dose Admin Acetaminophen (Tylenol) 650 mg Q6H PRN GT Mild Pain/Temp > 100.5 03/22/19 15:45 04/20/19 03:44 Albuterol/ Ipratropium (Albuterol/ Ipratropium) 3 ml Q4H PRN HHN Shortness of Breath 03/21/19 03:45 03/26/19 03:44 Bisacodyl (Dulcolax) 10 mg Q24HRS PRN RECTAL Constipation 03/21/19 03:45 04/20/19 03:44 Carvedilol (Coreg) 12.5 mg EVERY 12 HOURS GT 03/22/19 21:00 04/20/19 20:59 03/23/19 09:49 Dextrose 1,000 ml @ 75 mls/hr [id number] IV 03/22/19 09:30 04/21/19 09:29 03/23/19 08:31 Docusate Sodium (Colace) 100 mg TID GT 03/21/19 13:00 04/20/19 08:59 03/23/19 09:47 Donepezil HCl (Aricept) 10 mg DAILY GT 03/23/19 09:00 04/20/19 08:59 03/23/19 09:49 Levetiracetam (Keppra) 1,000 mg Q12HR ORAL 03/21/19 21:00 04/20/19 08:59 03/23/19 09:48 Magnesium Hydroxide (Mom) 30 ml DAILY PRN ORAL Constipation 03/21/19 03:45 04/20/19 03:44 Piperacillin Sod/ Tazobactam Sod 3.375 gm/Sodium Chloride 110 ml @ 27.5 mls/hr Q8H IVPB 03/21/19 12:00 03/28/19 11:59 03/23/19 12:52 Polyethylene Glycol (Miralax) 17 gm DAILY NG 03/23/19 09:00 04/20/19 08:59 03/23/19 09:50 Potassium Chloride (K-Dur) 20 meq TWICE A DAY GT 03/22/19 09:30 04/21/19 09:29 03/23/19 09:49 Sennosides (Senokot) 17.2 mg BEDTIME GT 03/21/19 21:00 04/20/19 20:59 03/22/19 22:27 Thiamine HCl (Vitamin B1) 100 mg DAILY NG 03/23/19 09:00 04/20/19 08:59 03/23/19 09:49 Vancomycin HCl (Vanco rx to dose) 1 ea DAILY PRN MISC Per rx protocol 03/21/19 08:30 04/20/19 08:29 Vancomycin HCl 750 mg/Sodium Chloride 275 ml @ 183.333 mls/hr Q24H IVPB 03/24/19 08:00 03/29/19 07:59 Yash Shay MD March 23, 2019 13:39
--- NOTE | 2019-03-23 15:27 | Nephrology Progress Note ---
Assessment/Plan Problem List: (1) Acute prerenal azotemia (2) Dehydration (3) Seizure disorder (4) Anoxic brain injury (5) Sepsis Assessment Renal failure: Dehydration Hypernatremia, Free water deficit Sepsis Acute metabolic encephalopathy PEG Sz disorder HTN Plan I suspect today's lab is ERROR- will repeat Check Vanco level in am- Vanco on hold now GT feeding D5W IV Fluid- Coreg GT monitor electrolytes per orders Subjective ROS Limited/Unobtainable: No Objective Objective Last 24 Hour Vital Signs Date Time Temp Pulse Resp B/P (MAP) Pulse Ox O2 Delivery O2 Flow Rate FiO2 03/23/19 12:00 98.9 80 20 136/71 (92) 98 03/23/19 11:28 79 03/23/19 09:49 76 131/69 03/23/19 09:00 Room Air 03/23/19 08:21 80 16 95 Room Air 03/23/19 08:00 98.8 76 20 131/69 (89) 97 03/23/19 07:31 90 03/23/19 04:00 98.2 84 16 108/58 (75) 96 03/23/19 04:00 84 03/23/19 00:00 90 03/23/19 00:00 98.4 66 16 161/64 (96) 96 03/22/19 21:00 Room Air 03/22/19 21:00 93 105/61 03/22/19 20:28 86 20 95 Room Air 03/22/19 20:00 85 03/22/19 20:00 98.2 93 18 105/61 (76) 96 03/22/19 16:00 97.8 83 20 106/64 (78) 94 Intake and Output 03/22/19 03/23/19 19:00 07:00 Intake Total 280 ml Output Total 450 ml 600 ml Balance -170 ml -600 ml Free Water 200 ml Tube Feeding 80 ml Output Urine Total 450 ml 600 ml # Bowel Movements 2 Laboratory Tests 03/22/19 21:45: Vancomycin Level Trough 29.4H 03/23/19 05:15: White Blood Count 9.2, Red Blood Count 3.71L, Hemoglobin 11.3L, Hematocrit 33.1L , Mean Corpuscular Volume 89, Mean Corpuscular Hemoglobin 30.4, Mean Corpuscular Hemoglobin Concent 34.0, Red Cell Distribution Width 11.8, Platelet Count 329, Mean Platelet Volume 7.4, Neutrophils (%) (Auto) 63.0, Lymphocytes (% ) (Auto) 20.9, Monocytes (%) (Auto) 11.4H, Eosinophils (%) (Auto) 3.6H, Basophils (%) (Auto) 1.2, Sodium Level 146H, Potassium Level 3.3L, Chloride Level 109H, Carbon Dioxide Level 25, Anion Gap 12, Blood Urea Nitrogen 37H, Creatinine 2.1#H, Estimat Glomerular Filtration Rate 35.0, Glucose Level 118H, Uric Acid 4.6, Calcium Level 9.4, Phosphorus Level 5.6H, Magnesium Level 2.2, Total Bilirubin 0.4, Aspartate Amino Transf (AST/SGOT) 22, Alanine Aminotransferase (ALT/SGPT) 51, Alkaline Phosphatase 79, Total Protein 6.4, Albumin 2.8L, Globulin 3.6, Albumin/Globulin Ratio 0.8L Height (Feet): 5 Height (Inches): 7.00 Weight (Pounds): 109 General Appearance: no apparent distress Neurologic: other - non verbal Objective no change Janes Barros MD March 23, 2019 15:27
[2019-03-23 16:50] LABS: ANION GAP 10 mmol/L (5-15); BLOOD UREA NITROGEN 37 mg/dL (7-18); CALCIUM 9.6 MG/DL (8.5-10.1); CARBON DIOXIDE 26 MMOL/L (21-32); CHLORIDE 111 MMOL/L (98-107); POTASSIUM 4.1 MMOL/L (3.5-5.1); SODIUM 147 MMOL/L (136-145)
[2019-03-23 17:01] LABS: ALANINE AMINOTRANSFERASE 44 U/L (12-78); ALBUMIN 2.6 G/DL (3.4-5.0); ALBUMIN/GLOBULIN RATIO 0.8 (1.0-2.7); ALKALINE PHOSPHATASE 72 U/L (46-116); ASPARTATE AMINO TRANSFERASE 26 U/L (15-37); BILIRUBIN,TOTAL 0.4 MG/DL (0.2-1.0); PHOSPHORUS 6.7 MG/DL (2.5-4.9)
--- NOTE | 2019-03-23 18:20 | Diagnostic Imaging Report ---
Indication: Altered mental status, seizures, history of anoxic brain injury Technique: sagittal T1 fast spin echo, axial T1 FLAIR, axial T2 FLAIR, axial T2 FS PROPELLER, axial T2* GRE, axial diffusion weighted images. ADC and exponential ADC maps generated Comparison: Head CT 08/25/2018 Findings: No abnormal areas of restricted diffusion to suggest acute infarction. There is symmetric high cortical and subcortical T2 signal and corresponding decreased T1 signal. This is most pronounced in the temporal lobes bilaterally. No significant cerebellar signal abnormality demonstrated. The vascular flow voids are preserved. There is ex vacuo dilatation of the ventricles and extra-axial CSF spaces... No evidence of acute hemorrhage. No mass effect nor midline shift. Visualized orbits and sinuses are unremarkableNo signal abnormalities corresponding to the parenchymal calcifications described on recent CT scan are demonstrated. Note that when compared to the prior exam, there is interim marked cerebral volume loss. Impression: Marked cortical and subcortical cerebral signal abnormality, consistent with stated clinical history of anoxic encephalopathy. Interim marked cerebral volume loss, since prior study of 08/25/2019, presumably related to the above. Negative for acute intracranial bleed, mass effect, or infarct
[2019-03-23] MEDS ORDERED: Albuterol/Ipratropium 3ml neb HHN PRN (19:45)
--- NOTE | 2019-03-23 20:48 | General Progress Note ---
Assessment/Plan Problem List: (1) Schizoaffective disorder ICD Codes: F25.9 - Schizoaffective disorder, unspecified SNOMED: 31882449 (2) Seizure disorder ICD Codes: G40.909 - Epilepsy, unspecified, not intractable, without status epilepticus SNOMED: 039163474 (3) Dehydration ICD Codes: E86.0 - Dehydration SNOMED: 95417540, 507584126 (4) Sepsis ICD Codes: A41.9 - Sepsis, unspecified organism SNOMED: 93589060, 730103244 Qualifiers: Qualified Codes: A41.9 - Sepsis, unspecified organism (5) Acute metabolic encephalopathy ICD Codes: G93.41 - Metabolic encephalopathy SNOMED: 99757665, 223960066 Status: progressing, fever Assessment/Plan: siezure psych still confused no fever abx per id reviewed chart and labs and meds Subjective ROS Limited/Unobtainable: Yes Allergies: Coded Allergies: No Known Allergies (Unverified , 08/20/18) Objective Last 24 Hour Vital Signs Date Time Temp Pulse Resp B/P (MAP) Pulse Ox O2 Delivery O2 Flow Rate FiO2 03/23/19 20:00 97.9 98 20 114/65 (81) 97 03/23/19 18:30 97.9 75 18 133/73 (93) 96 03/23/19 16:00 98.8 77 19 130/69 (89) 98 03/23/19 12:00 98.9 80 20 136/71 (92) 98 03/23/19 11:28 79 03/23/19 09:49 76 131/69 03/23/19 09:00 Room Air 03/23/19 08:21 80 16 95 Room Air 03/23/19 08:00 98.8 76 20 131/69 (89) 97 03/23/19 07:31 90 03/23/19 04:00 98.2 84 16 108/58 (75) 96 03/23/19 04:00 84 03/23/19 00:00 90 03/23/19 00:00 98.4 66 16 161/64 (96) 96 03/22/19 21:00 Room Air 03/22/19 21:00 93 105/61 Intake and Output 03/22/19 03/23/19 19:00 07:00 Intake Total 280 ml Output Total 450 ml 600 ml Balance -170 ml -600 ml Free Water 200 ml Tube Feeding 80 ml Output Urine Total 450 ml 600 ml # Bowel Movements 2 Laboratory Tests 03/22/19 21:45: Vancomycin Level Trough 29.4H 03/23/19 05:15: White Blood Count 9.2, Red Blood Count 3.71L, Hemoglobin 11.3L, Hematocrit 33.1L , Mean Corpuscular Volume 89, Mean Corpuscular Hemoglobin 30.4, Mean Corpuscular Hemoglobin Concent 34.0, Red Cell Distribution Width 11.8, Platelet Count 329, Mean Platelet Volume 7.4, Neutrophils (%) (Auto) 63.0, Lymphocytes (% ) (Auto) 20.9, Monocytes (%) (Auto) 11.4H, Eosinophils (%) (Auto) 3.6H, Basophils (%) (Auto) 1.2, Sodium Level 146H, Potassium Level 3.3L, Chloride Level 109H, Carbon Dioxide Level 25, Anion Gap 12, Blood Urea Nitrogen 37H, Creatinine 2.1#H, Estimat Glomerular Filtration Rate 35.0, Glucose Level 118H, Uric Acid 4.6, Calcium Level 9.4, Phosphorus Level 5.6H, Magnesium Level 2.2, Total Bilirubin 0.4, Aspartate Amino Transf (AST/SGOT) 22, Alanine Aminotransferase (ALT/SGPT) 51, Alkaline Phosphatase 79, Total Protein 6.4, Albumin 2.8L, Globulin 3.6, Albumin/Globulin Ratio 0.8L 03/23/19 16:15: Sodium Level 147H, Potassium Level 4.1, Chloride Level 111H, Carbon Dioxide Level 26, Anion Gap 10, Blood Urea Nitrogen 37H, Creatinine 2.0H, Estimat Glomerular Filtration Rate 37.0, Glucose Level 117H, Calcium Level 9.6, Phosphorus Level 6.7H, Magnesium Level 2.5H, Total Bilirubin 0.4, Aspartate Amino Transf (AST/SGOT) 26, Alanine Aminotransferase (ALT/SGPT) 44, Alkaline Phosphatase 72, Total Protein 5.9L, Albumin 2.6L, Globulin 3.3, Albumin/ Globulin Ratio 0.8L Height (Feet): 5 Height (Inches): 7.00 Weight (Pounds): 109 General Appearance: confused Cardiovascular: normal rate Respiratory/Chest: lungs clear Abdomen: soft Lenin Wyatt MD March 23, 2019 20:48
[2019-03-23] MEDS: Sennosides 8.6mg tab GT SCH (21:15)
--- NOTE | 2019-03-23 23:35 | Neurology Progress Note ---
Interim History Interim History ROS Limited/Unobtainable: Yes Complaints: AMS Events: This visit was performed on March 23, [address] Jin Interim History MRI negative for acute events Review of Systems All Systems: reviewed and negative except above Objective Physical Exam Last Vital Signs Date Time Temp Pulse Resp B/P (MAP) Pulse Ox O2 Delivery O2 Flow Rate FiO2 03/23/19 21:15 98 114/65 03/23/19 20:00 97.9 20 97 03/23/19 19:53 Room Air 03/21/19 22:51 21 Laboratory Tests Test 03/23/19 05:15 03/23/19 16:15 White Blood Count 9.2 K/UL (4.8-10.8) Red Blood Count 3.71 M/UL (4.70-6.10) L Hemoglobin 11.3 G/DL (14.2-18.0) L Hematocrit 33.1 % (42.0-52.0) L Mean Corpuscular Volume 89 FL (80-99) Mean Corpuscular Hemoglobin 30.4 PG (27.0-31.0) Mean Corpuscular Hemoglobin Concent 34.0 G/DL (32.0-36.0) Red Cell Distribution Width 11.8 % (11.6-14.8) Platelet Count 329 K/UL (150-450) Mean Platelet Volume 7.4 FL (6.5-10.1) Neutrophils (%) (Auto) 63.0 % (45.0-75.0) Lymphocytes (%) (Auto) 20.9 % (20.0-45.0) Monocytes (%) (Auto) 11.4 % (1.0-10.0) H Eosinophils (%) (Auto) 3.6 % (0.0-3.0) H Basophils (%) (Auto) 1.2 % (0.0-2.0) Sodium Level 146 MMOL/L (136-145) H 147 MMOL/L (136-145) H Potassium Level 3.3 MMOL/L (3.5-5.1) L 4.1 MMOL/L (3.5-5.1) Chloride Level 109 MMOL/L (98-107) H 111 MMOL/L (98-107) H Carbon Dioxide Level 25 MMOL/L (21-32) 26 MMOL/L (21-32) Anion Gap 12 mmol/L (5-15) 10 mmol/L (5-15) Blood Urea Nitrogen 37 mg/dL (7-18) H 37 mg/dL (7-18) H Creatinine 2.1 MG/DL (0.55-1.30) #H 2.0 MG/DL (0.55-1.30) H Estimat Glomerular Filtration Rate 35.0 mL/min (>60) 37.0 mL/min (>60) Glucose Level 118 MG/DL (74-106) H 117 MG/DL (74-106) H Uric Acid 4.6 MG/DL (2.6-7.2) Calcium Level 9.4 MG/DL (8.5-10.1) 9.6 MG/DL (8.5-10.1) Phosphorus Level 5.6 MG/DL (2.5-4.9) H 6.7 MG/DL (2.5-4.9) H Magnesium Level 2.2 MG/DL (1.8-2.4) 2.5 MG/DL (1.8-2.4) H Total Bilirubin 0.4 MG/DL (0.2-1.0) 0.4 MG/DL (0.2-1.0) Aspartate Amino Transf (AST/SGOT) 22 U/L (15-37) 26 U/L (15-37) Alanine Aminotransferase (ALT/SGPT) 51 U/L (12-78) 44 U/L (12-78) Alkaline Phosphatase 79 U/L (46-116) 72 U/L (46-116) Total Protein 6.4 G/DL (6.4-8.2) 5.9 G/DL (6.4-8.2) L Albumin 2.8 G/DL (3.4-5.0) L 2.6 G/DL (3.4-5.0) L Globulin 3.6 g/dL 3.3 g/dL Albumin/Globulin Ratio 0.8 (1.0-2.7) L 0.8 (1.0-2.7) L General: well developed, well nourished Head: normocophalic Neck: other EENT: other Neurologic Exam Mental Status: other Speech: other Language: other Cranial Nerve II: fundus normal, visual roberts, no papilledema, other Cranial Nerves III, IV, : PERRLA, EOMI, other Cranial Nerve V: other Cranial Nerve VII: other Cranial Nerve VIII: other Cranial Nerve IX: other Cranial Nerve XI: other Cranial Nerve XII: other Motor System: other Sensory: other Coordination: other - Patient has tracheostomy scar at throat, is tracking intermittently with his eyes, he doesn't follow commands, has rigid tone and spasticity in all extremities and triple flexes in LEs bilaterally with mild decerebrate posturing in UEs on noxious stim. Objective Patient has tracheostomy scar at throat, is tracking intermittently with his eyes, he doesn't follow commands, has rigid tone and spasticity in all extremities and triple flexes in LEs bilaterally with mild decerebrate posturing in UEs on noxious stim. Imaging Patient : LATANYA GOODWIN Referring Physician: Chey Long N.P. ID Number: [id number] Service Date: 03/23/19 : 1980 Report Date: 03/23/19 Gender: M Accession No.: [id number] Location: Procedure: MRI Brain no Contrast Indication: Altered mental status, seizures, history of anoxic brain injury Technique: sagittal T1 fast spin echo, axial T1 FLAIR, axial T2 FLAIR, axial T2 FS PROPELLER, axial T2* GRE, axial diffusion weighted images. ADC and exponential ADC maps generated Comparison: Head CT 08/25/2018 Findings: No abnormal areas of restricted diffusion to suggest acute infarction. There is symmetric high cortical and subcortical T2 signal and corresponding decreased T1 signal. This is most pronounced in the temporal lobes bilaterally. No significant cerebellar signal abnormality demonstrated. The vascular flow voids are preserved. There is ex vacuo dilatation of the ventricles and extra-axial CSF spaces... No evidence of acute hemorrhage. No mass effect nor midline shift. Visualized orbits and sinuses are unremarkableNo signal abnormalities corresponding to the parenchymal calcifications described on recent CT scan are demonstrated. Note that when compared to the prior exam, there is interim marked cerebral volume loss. Impression: Marked cortical and subcortical cerebral signal abnormality, consistent with stated clinical history of anoxic encephalopathy. Interim marked cerebral volume loss, since prior study of 08/25/2019, presumably related to the above. Negative for acute intracranial bleed, mass effect, or infarct Impression/Recommendations Problems: (1) Seizure disorder (2) Anoxic brain injury (3) Sepsis (4) Acute hypernatremia (5) Dehydration (6) Encephalopathy due to metabolic factor or toxin (7) Acute metabolic encephalopathy (8) Weakness generalized (9) Schizoaffective disorder Status: stable, fever Recommendations Q4 Hour obs Abx as per ID EEG pending completion Na 135-145 Telemetry monitoring Q2 hour neuro OBS EEG Routine MRI Brain w/o contrast - results pending Maintain normothermia with Tylenol and cooling blanket Maintain normoglycemia with ISS SBP<140 Continue Keppra 1000 mg BID - Ativan 1mg PRN for seizure Replete/ Replace lytes , IRON Chey Long N.PJosef March 23, 2019 23:35
[2019-03-24] VITALS: BP 115/75
--- NOTE | 2019-03-24 | Electroencephalogram ---
DATE OF PROCEDURE: 03/23/2019 REQUESTING PHYSICIAN: Bruce Jin M.D. READING PHYSICIAN: Abdoulaye Arteaga M.D. PROCEDURE PERFORMED: Electroencephalogram. HISTORY: This EEG was performed on a 39-year-old gentleman with a history of a seizure disorder and an anoxic encephalopathy. The purpose of this EEG was to evaluate the patient for the degree and type of cerebral dysfunction and to exclude ongoing ictal or interictal phenomena. TECHNICAL NOTE: This EEG was performed on a Antenna Acquisition Unit with electrodes placed on the scalp according to the International 10-20 system. [id number] and [id number] montages were used. The EEG was technically satisfactory and was performed in the awake and drowsy states. OBSERVATIONS: In the best awake state, the background activity consisted of 6-6.5 Hz theta activity with intermixed delta frequencies. Drowsiness was characterized by slowing of the background in the 4-5 Hz theta range with an increased amount of delta frequencies. No definite focal abnormalities or epileptiform discharges were seen. IMPRESSION: This is an abnormal EEG characterized by slowing of the background in the 6-6.5 Hz theta range with some intermixed delta frequencies. COMMENT: This study is consistent with an encephalopathy of a moderate degree. Clinical correlation is recommended. Abdoulaye Arteaga M.D., M.S.P.H. DR: LUISA JOB#: [id number] [facility] HOSPITALLuis Carlos
[2019-03-24 04:00] VITALS: BP 118/74
[2019-03-24] MEDS: Piperacillin/Tazobactam 3.375 GM in NS 110 ML IVPB SCH ×2 (04:59→15:08)
[2019-03-24 07:43] LABS: BASOPHILS % (AUTO) 0.7 % (0.0-2.0); EOSINOPHILS % (AUTO) 3.4 % (0.0-3.0); HEMATOCRIT 31.7 % (42.0-52.0); HEMOGLOBIN 10.8 G/DL (14.2-18.0); LYMPHOCYTES % (AUTO) 22.7 % (20.0-45.0); MEAN CORPUSCULAR VOLUME 88 FL (80-99); MONOCYTES % (AUTO) 8.4 % (1.0-10.0); NEUTROPHILS % (AUTO) 64.9 % (45.0-75.0); PLATELET COUNT 391 K/UL (150-450); RED BLOOD COUNT 3.58 M/UL (4.70-6.10); RED CELL DISTRIBUTION WIDTH 11.7 % (11.6-14.8); WHITE BLOOD COUNT 8.7 K/UL (4.8-10.8)
[2019-03-24 08:00] VITALS: BP 129/69
[2019-03-24] MEDS ORDERED: Vancomycin 750mg/NS 275ml IVPB SCH ×2 (08:00)
[2019-03-24 08:04] LABS: ALANINE AMINOTRANSFERASE 39 U/L (12-78); ALBUMIN 2.7 G/DL (3.4-5.0); ALBUMIN/GLOBULIN RATIO 0.7 (1.0-2.7); ALKALINE PHOSPHATASE 76 U/L (46-116); ANION GAP 12 mmol/L (5-15); ASPARTATE AMINO TRANSFERASE 16 U/L (15-37); BILIRUBIN,TOTAL 0.3 MG/DL (0.2-1.0); BLOOD UREA NITROGEN 33 mg/dL (7-18); CARBON DIOXIDE 25 MMOL/L (21-32); CHLORIDE 111 MMOL/L (98-107); CREATININE 2.2 MG/DL (0.55-1.30); PHOSPHORUS 5.4 MG/DL (2.5-4.9); POTASSIUM 3.6 MMOL/L (3.5-5.1); SODIUM 148 MMOL/L (136-145)
[2019-03-24] MEDS: levETIRAcetam 500mg/5ml Liquid ORAL SCH ×2 (08:41→21:53)
[2019-03-24] MEDS: Docusate 100mg/10ml Liq GT SCH ×3 (08:41→17:16)
[2019-03-24] MEDS: Carvedilol 12.5mg tab GT SCH ×2 (08:42→21:53)
[2019-03-24] MEDS: Thiamine 100mg tab NG SCH (08:42)
[2019-03-24] MEDS: Miralax 17gm pkt NG SCH (08:42)
[2019-03-24] MEDS ORDERED: Donepezil 10mg tab GT SCH (09:00)
[2019-03-24] MEDS ORDERED: Milk of Magnesia 30ml Ud ORAL PRN (09:00)
[2019-03-24] MEDS ORDERED: ALBUMIN HUMAN 5% IV SCH (10:00)
--- NOTE | 2019-03-24 10:44 | Cardiac Electrophysiology PN ---
Assessment/Plan Assessment/Plan 1. Sinus tachycardia due to severe dehydration as BUN and creatinine ratio was around 50 on admission with sodium of 155. Better 148 with iv fluids per Dr. Barros. Continue Coreg. Echocardiogram EF 60% 2. Hypertension. Continue Coreg 12.5 mg b.i.d. 3. Sepsis, on IV antibiotic 4. Dysphagia, status post percutaneous endoscopic gastrostomy placement. 5. History of anoxic brain injury and seizures.MRI brain negative for any acute findings 6. Acute renal failure Cr 2.2, on D5W at 75 cc/hr DW RN Subjective Subjective Transferred to NMB. Nonverbal.Had MRI brain yesterday Objective Last 24 Hour Vital Signs Date Time Temp Pulse Resp B/P (MAP) Pulse Ox O2 Delivery O2 Flow Rate FiO2 03/24/19 08:42 95 118/74 03/24/19 08:10 Room Air 03/24/19 08:00 98.4 87 20 129/69 (89) 94 03/24/19 07:33 95 16 97 Room Air 03/24/19 04:00 98.4 97 20 118/74 (89) 96 03/24/19 00:00 98.1 98 20 115/75 (88) 98 03/23/19 21:15 98 114/65 03/23/19 21:00 Room Air 03/23/19 20:00 97.9 98 20 114/65 (81) 97 03/23/19 19:53 98 16 97 Room Air 03/23/19 18:30 97.9 75 18 133/73 (93) 96 03/23/19 16:00 98.8 77 19 130/69 (89) 98 03/23/19 12:00 98.9 80 20 136/71 (92) 98 03/23/19 11:28 79 Intake and Output 03/23/19 03/24/19 19:00 07:00 Intake Total 130 ml 1590.0 ml Output Total 1100 ml 1000 ml Balance -970 ml 590.0 ml Free Water 100 ml 100 ml IV Total 1160.0 ml Tube Feeding 30 ml 330 ml Output Urine Total 1100 ml 1000 ml # Bowel Movements 3 2 Laboratory Tests Test 03/23/19 16:15 03/24/19 05:40 Sodium Level 147 MMOL/L (136-145) H 148 MMOL/L (136-145) H Potassium Level 4.1 MMOL/L (3.5-5.1) 3.6 MMOL/L (3.5-5.1) Chloride Level 111 MMOL/L (98-107) H 111 MMOL/L (98-107) H Carbon Dioxide Level 26 MMOL/L (21-32) 25 MMOL/L (21-32) Anion Gap 10 mmol/L (5-15) 12 mmol/L (5-15) Blood Urea Nitrogen 37 mg/dL (7-18) H 33 mg/dL (7-18) H Creatinine 2.0 MG/DL (0.55-1.30) H 2.2 MG/DL (0.55-1.30) H Estimat Glomerular Filtration Rate 37.0 mL/min (>60) 33.2 mL/min (>60) Glucose Level 117 MG/DL (74-106) H 112 MG/DL (74-106) H Calcium Level 9.6 MG/DL (8.5-10.1) 10.0 MG/DL (8.5-10.1) Phosphorus Level 6.7 MG/DL (2.5-4.9) H 5.4 MG/DL (2.5-4.9) H Magnesium Level 2.5 MG/DL (1.8-2.4) H 2.5 MG/DL (1.8-2.4) H Total Bilirubin 0.4 MG/DL (0.2-1.0) 0.3 MG/DL (0.2-1.0) Aspartate Amino Transf (AST/SGOT) 26 U/L (15-37) 16 U/L (15-37) Alanine Aminotransferase (ALT/SGPT) 44 U/L (12-78) 39 U/L (12-78) Alkaline Phosphatase 72 U/L (46-116) 76 U/L (46-116) Total Protein 5.9 G/DL (6.4-8.2) L 6.8 G/DL (6.4-8.2) Albumin 2.6 G/DL (3.4-5.0) L 2.7 G/DL (3.4-5.0) L Globulin 3.3 g/dL 4.1 g/dL Albumin/Globulin Ratio 0.8 (1.0-2.7) L 0.7 (1.0-2.7) L White Blood Count 8.7 K/UL (4.8-10.8) Red Blood Count 3.58 M/UL (4.70-6.10) L Hemoglobin 10.8 G/DL (14.2-18.0) L Hematocrit 31.7 % (42.0-52.0) L Mean Corpuscular Volume 88 FL (80-99) Mean Corpuscular Hemoglobin 30.0 PG (27.0-31.0) Mean Corpuscular Hemoglobin Concent 34.0 G/DL (32.0-36.0) Red Cell Distribution Width 11.7 % (11.6-14.8) Platelet Count 391 K/UL (150-450) Mean Platelet Volume 7.3 FL (6.5-10.1) Neutrophils (%) (Auto) 64.9 % (45.0-75.0) Lymphocytes (%) (Auto) 22.7 % (20.0-45.0) Monocytes (%) (Auto) 8.4 % (1.0-10.0) Eosinophils (%) (Auto) 3.4 % (0.0-3.0) H Basophils (%) (Auto) 0.7 % (0.0-2.0) Random Vancomycin Level 22.0 ug/mL Objective HEAD AND NECK: No JVD. Old tracheostomy site closed. LUNGS: Coarse rhonchi. CARDIOVASCULAR: Tachycardic S1 and S2 with no gallop. ABDOMEN: Soft, status post G-tube. EXTREMITIES: No pitting edema. Jim Manjarrez MD March 24, 2019 10:44
--- NOTE | 2019-03-24 11:02 | Nephrology Progress Note ---
Assessment/Plan Problem List: (1) Acute renal failure (2) Acute prerenal azotemia Assessment: dehydration (3) Dehydration (4) Seizure disorder (5) Anoxic brain injury (6) Sepsis Assessment Renal failure: Dehydration Hypernatremia, Free water deficit Sepsis Acute metabolic encephalopathy PEG Sz disorder HTN Plan labs suggest rising Cr High Vanco level Check Vanco level in am- Vanco on hold now increase IV fluids / Albumin bolus GT feeding D5W IV Fluid- Coreg GT monitor electrolytes per orders Subjective ROS Limited/Unobtainable: No Objective Objective Last 24 Hour Vital Signs Date Time Temp Pulse Resp B/P (MAP) Pulse Ox O2 Delivery O2 Flow Rate FiO2 03/24/19 08:42 95 118/74 03/24/19 08:10 Room Air 03/24/19 08:00 98.4 87 20 129/69 (89) 94 03/24/19 07:33 95 16 97 Room Air 03/24/19 04:00 98.4 97 20 118/74 (89) 96 03/24/19 00:00 98.1 98 20 115/75 (88) 98 03/23/19 21:15 98 114/65 03/23/19 21:00 Room Air 03/23/19 20:00 97.9 98 20 114/65 (81) 97 03/23/19 19:53 98 16 97 Room Air 03/23/19 18:30 97.9 75 18 133/73 (93) 96 03/23/19 16:00 98.8 77 19 130/69 (89) 98 03/23/19 12:00 98.9 80 20 136/71 (92) 98 03/23/19 11:28 79 Intake and Output 03/23/19 03/24/19 19:00 07:00 Intake Total 130 ml 1590.0 ml Output Total 1100 ml 1000 ml Balance -970 ml 590.0 ml Free Water 100 ml 100 ml IV Total 1160.0 ml Tube Feeding 30 ml 330 ml Output Urine Total 1100 ml 1000 ml # Bowel Movements 3 2 Laboratory Tests 03/23/19 16:15: Sodium Level 147H, Potassium Level 4.1, Chloride Level 111H, Carbon Dioxide Level 26, Anion Gap 10, Blood Urea Nitrogen 37H, Creatinine 2.0H, Estimat Glomerular Filtration Rate 37.0, Glucose Level 117H, Calcium Level 9.6, Phosphorus Level 6.7H, Magnesium Level 2.5H, Total Bilirubin 0.4, Aspartate Amino Transf (AST/SGOT) 26, Alanine Aminotransferase (ALT/SGPT) 44, Alkaline Phosphatase 72, Total Protein 5.9L, Albumin 2.6L, Globulin 3.3, Albumin/ Globulin Ratio 0.8L 03/24/19 05:40: Sodium Level 148H, Potassium Level 3.6, Chloride Level 111H, Carbon Dioxide Level 25, Anion Gap 12, Blood Urea Nitrogen 33H, Creatinine 2.2H, Estimat Glomerular Filtration Rate 33.2, Glucose Level 112H, Calcium Level 10.0, Phosphorus Level 5.4H, Magnesium Level 2.5H, Total Bilirubin 0.3, Aspartate Amino Transf (AST/SGOT) 16, Alanine Aminotransferase (ALT/SGPT) 39, Alkaline Phosphatase 76, Total Protein 6.8, Albumin 2.7L, Globulin 4.1, Albumin/Globulin Ratio 0.7L, White Blood Count 8.7, Red Blood Count 3.58L, Hemoglobin 10.8L, Hematocrit 31.7L, Mean Corpuscular Volume 88, Mean Corpuscular Hemoglobin 30.0, Mean Corpuscular Hemoglobin Concent 34.0, Red Cell Distribution Width 11.7, Platelet Count 391, Mean Platelet Volume 7.3, Neutrophils (%) (Auto) 64.9, Lymphocytes (%) (Auto) 22.7, Monocytes (%) (Auto) 8.4, Eosinophils (%) (Auto) 3.4H, Basophils (%) (Auto) 0.7, Random Vancomycin Level 22.0 Height (Feet): 5 Height (Inches): 7.00 Weight (Pounds): 109 General Appearance: no apparent distress, other - non verbal Neck: limited range of motion Cardiovascular: tachycardia Respiratory/Chest: decreased breath sounds Abdomen: distended, other - PEG Neurologic: other - non verbal Objective no change Janes Barros MD March 24, 2019 11:02
[2019-03-24 12:00] VITALS: BP 122/61
--- NOTE | 2019-03-24 13:45 | Infectious Diseases Prog Note ---
Assessment/Plan Assessment/Plan IMPRESSION: 1. Sepsis 2. Leukocytosis resolved 3. Tachycardia. resolved 4. He has anoxic encephalopathy. 5. MRSA colonization. 6. Hypernatremia and azotemia. 7. Seizure disorder. 8. Hypertension. RECOMMENDATION: Continue Zosyn until tomorrow abdominal ultrasound was negative Subjective ROS Limited/Unobtainable: Yes Constitutional: Reports: no symptoms Allergies: Coded Allergies: No Known Allergies (Unverified , 08/20/18) Objective Vital Signs Last 24 Hour Vital Signs Date Time Temp Pulse Resp B/P (MAP) Pulse Ox O2 Delivery O2 Flow Rate FiO2 03/24/19 12:00 98.1 84 20 122/61 (81) 98 03/24/19 08:42 95 118/74 03/24/19 08:10 Room Air 03/24/19 08:00 98.4 87 20 129/69 (89) 94 03/24/19 07:33 95 16 97 Room Air 03/24/19 04:00 98.4 97 20 118/74 (89) 96 03/24/19 00:00 98.1 98 20 115/75 (88) 98 03/23/19 21:15 98 114/65 03/23/19 21:00 Room Air 03/23/19 20:00 97.9 98 20 114/65 (81) 97 03/23/19 19:53 98 16 97 Room Air 03/23/19 18:30 97.9 75 18 133/73 (93) 96 03/23/19 16:00 98.8 77 19 130/69 (89) 98 Height (Feet): 5 Height (Inches): 7.00 Weight (Pounds): 109 General Appearance: no acute distress HEENT: mucous membranes moist Respiratory/Chest: lungs clear Cardiovascular: normal rate Abdomen: soft, non tender, other - GT feeding Neurologic/Psychiatric: aphasia Laboratory Tests Test 03/23/19 16:15 03/24/19 05:40 Sodium Level 147 MMOL/L (136-145) H 148 MMOL/L (136-145) H Potassium Level 4.1 MMOL/L (3.5-5.1) 3.6 MMOL/L (3.5-5.1) Chloride Level 111 MMOL/L (98-107) H 111 MMOL/L (98-107) H Carbon Dioxide Level 26 MMOL/L (21-32) 25 MMOL/L (21-32) Anion Gap 10 mmol/L (5-15) 12 mmol/L (5-15) Blood Urea Nitrogen 37 mg/dL (7-18) H 33 mg/dL (7-18) H Creatinine 2.0 MG/DL (0.55-1.30) H 2.2 MG/DL (0.55-1.30) H Estimat Glomerular Filtration Rate 37.0 mL/min (>60) 33.2 mL/min (>60) Glucose Level 117 MG/DL (74-106) H 112 MG/DL (74-106) H Calcium Level 9.6 MG/DL (8.5-10.1) 10.0 MG/DL (8.5-10.1) Phosphorus Level 6.7 MG/DL (2.5-4.9) H 5.4 MG/DL (2.5-4.9) H Magnesium Level 2.5 MG/DL (1.8-2.4) H 2.5 MG/DL (1.8-2.4) H Total Bilirubin 0.4 MG/DL (0.2-1.0) 0.3 MG/DL (0.2-1.0) Aspartate Amino Transf (AST/SGOT) 26 U/L (15-37) 16 U/L (15-37) Alanine Aminotransferase (ALT/SGPT) 44 U/L (12-78) 39 U/L (12-78) Alkaline Phosphatase 72 U/L (46-116) 76 U/L (46-116) Total Protein 5.9 G/DL (6.4-8.2) L 6.8 G/DL (6.4-8.2) Albumin 2.6 G/DL (3.4-5.0) L 2.7 G/DL (3.4-5.0) L Globulin 3.3 g/dL 4.1 g/dL Albumin/Globulin Ratio 0.8 (1.0-2.7) L 0.7 (1.0-2.7) L White Blood Count 8.7 K/UL (4.8-10.8) Red Blood Count 3.58 M/UL (4.70-6.10) L Hemoglobin 10.8 G/DL (14.2-18.0) L Hematocrit 31.7 % (42.0-52.0) L Mean Corpuscular Volume 88 FL (80-99) Mean Corpuscular Hemoglobin 30.0 PG (27.0-31.0) Mean Corpuscular Hemoglobin Concent 34.0 G/DL (32.0-36.0) Red Cell Distribution Width 11.7 % (11.6-14.8) Platelet Count 391 K/UL (150-450) Mean Platelet Volume 7.3 FL (6.5-10.1) Neutrophils (%) (Auto) 64.9 % (45.0-75.0) Lymphocytes (%) (Auto) 22.7 % (20.0-45.0) Monocytes (%) (Auto) 8.4 % (1.0-10.0) Eosinophils (%) (Auto) 3.4 % (0.0-3.0) H Basophils (%) (Auto) 0.7 % (0.0-2.0) Random Vancomycin Level 22.0 ug/mL Current Medications Medications (Trade) Dose Ordered Sig/Yohannes Route PRN Reason Start Time Stop Time Status Last Admin Dose Admin Acetaminophen (Tylenol) 650 mg Q6H PRN GT Mild Pain/Temp > 100.5 03/23/19 19:00 04/20/19 18:59 Albumin Human (Albuminar-5) 500 ml ONCE IV 03/24/19 10:00 03/24/19 23:59 03/24/19 10:02 Albuterol/ Ipratropium (Albuterol/ Ipratropium) 3 ml Q4H PRN HHN Shortness of Breath 03/23/19 19:45 03/26/19 03:44 Bisacodyl (Dulcolax) 10 mg DAILY PRN RECTAL Constipation 03/23/19 19:00 04/22/19 18:59 Carvedilol (Coreg) 12.5 mg EVERY 12 HOURS GT 03/23/19 21:00 04/20/19 20:59 03/24/19 08:42 Dextrose 1,000 ml @ 125 mls/hr Q8H IV 03/24/19 11:15 04/23/19 11:14 03/24/19 12:09 Docusate Sodium (Colace) 100 mg TID GT 03/24/19 09:00 04/23/19 08:59 03/24/19 12:08 Levetiracetam (Keppra) 1,000 mg Q12HR ORAL 03/23/19 21:00 04/20/19 08:59 03/24/19 08:41 Piperacillin Sod/ Tazobactam Sod 3.375 gm/Sodium Chloride 110 ml @ 27.5 mls/hr Q12H IVPB 03/24/19 16:00 03/28/19 11:59 Polyethylene Glycol (Miralax) 17 gm DAILY NG 03/24/19 09:00 04/20/19 08:59 03/24/19 08:42 Potassium Chloride (K-Dur) 20 meq TWICE A DAY GT 03/24/19 09:00 04/23/19 08:59 03/24/19 08:42 Sennosides (Senokot) 17.2 mg BEDTIME GT 03/23/19 21:00 04/20/19 20:59 03/23/19 21:15 Thiamine HCl (Vitamin B1) 100 mg DAILY NG 03/24/19 09:00 04/20/19 08:59 03/24/19 08:42 Yash Shay MD March 24, 2019 13:45
[2019-03-24 16:32] VITALS: BP 118/64
--- NOTE | 2019-03-24 19:42 | Diagnostic Imaging Report ---
APPROVED REPORT CPT Code: 60700 Present Symptoms Comments: BILATERAL LEGS PAIN. BILATERAL: Imaging reveals a patent deep venous system bilaterally. There is no evidence of thrombus within the femoral, popliteal or tibial segments. The greater saphenous veins are also within normal limits. Doppler indicates normal spontaneous flow within these segments.
[2019-03-24 20:00] VITALS: BP 136/89
--- NOTE | 2019-03-24 21:22 | General Progress Note ---
Assessment/Plan Problem List: (1) Schizoaffective disorder ICD Codes: F25.9 - Schizoaffective disorder, unspecified SNOMED: 90610289 (2) Seizure disorder ICD Codes: G40.909 - Epilepsy, unspecified, not intractable, without status epilepticus SNOMED: 565347192 (3) Dehydration ICD Codes: E86.0 - Dehydration SNOMED: 79851063, 175580877 (4) Sepsis ICD Codes: A41.9 - Sepsis, unspecified organism SNOMED: 08209892, 280357010 Qualifiers: Qualified Codes: A41.9 - Sepsis, unspecified organism (5) Acute metabolic encephalopathy ICD Codes: G93.41 - Metabolic encephalopathy SNOMED: 69016044, 977184523 Status: stable, fever Assessment/Plan: no siezure reviewed chart and labs dehydration improved Subjective ROS Limited/Unobtainable: Yes Allergies: Coded Allergies: No Known Allergies (Unverified , 08/20/18) Objective Last 24 Hour Vital Signs Date Time Temp Pulse Resp B/P (MAP) Pulse Ox O2 Delivery O2 Flow Rate FiO2 03/24/19 16:32 97.2 86 20 118/64 (82) 98 03/24/19 12:00 98.1 84 20 122/61 (81) 98 03/24/19 08:42 95 118/74 03/24/19 08:10 Room Air 03/24/19 08:00 98.4 87 20 129/69 (89) 94 03/24/19 07:33 95 16 97 Room Air 03/24/19 04:00 98.4 97 20 118/74 (89) 96 03/24/19 00:00 98.1 98 20 115/75 (88) 98 Intake and Output 03/23/19 03/24/19 19:00 07:00 Intake Total 130 ml 1620.0 ml Output Total 1100 ml 1000 ml Balance -970 ml 620.0 ml Free Water 100 ml 100 ml IV Total 1160.0 ml Tube Feeding 30 ml 360 ml Output Urine Total 1100 ml 1000 ml # Bowel Movements 3 2 Laboratory Tests 03/24/19 05:40: White Blood Count 8.7, Red Blood Count 3.58L, Hemoglobin 10.8L, Hematocrit 31.7L , Mean Corpuscular Volume 88, Mean Corpuscular Hemoglobin 30.0, Mean Corpuscular Hemoglobin Concent 34.0, Red Cell Distribution Width 11.7, Platelet Count 391, Mean Platelet Volume 7.3, Neutrophils (%) (Auto) 64.9, Lymphocytes (% ) (Auto) 22.7, Monocytes (%) (Auto) 8.4, Eosinophils (%) (Auto) 3.4H, Basophils (%) (Auto) 0.7, Sodium Level 148H, Potassium Level 3.6, Chloride Level 111H, Carbon Dioxide Level 25, Anion Gap 12, Blood Urea Nitrogen 33H, Creatinine 2.2H , Estimat Glomerular Filtration Rate 33.2, Glucose Level 112H, Calcium Level 10.0, Phosphorus Level 5.4H, Magnesium Level 2.5H, Total Bilirubin 0.3, Aspartate Amino Transf (AST/SGOT) 16, Alanine Aminotransferase (ALT/SGPT) 39, Alkaline Phosphatase 76, Total Protein 6.8, Albumin 2.7L, Globulin 4.1, Albumin/ Globulin Ratio 0.7L, Random Vancomycin Level 22.0 Height (Feet): 5 Height (Inches): 7.00 Weight (Pounds): 109 Cardiovascular: normal rate Respiratory/Chest: lungs clear Abdomen: soft Lenin Wyatt MD March 24, 2019 21:22
[2019-03-24] MEDS: Sennosides 8.6mg tab GT SCH (21:53)
--- NOTE | 2019-03-24 21:59 | Neurology Progress Note ---
Interim History Interim History ROS Limited/Unobtainable: Yes Complaints: AMS Events: This visit was performed on March 24, [address] Jin Interim History No seizures reported, no significant events. Objective Physical Exam Last Vital Signs Date Time Temp Pulse Resp B/P (MAP) Pulse Ox O2 Delivery O2 Flow Rate FiO2 03/24/19 21:53 82 124/66 03/24/19 16:32 97.2 20 98 03/24/19 08:10 Room Air 03/21/19 22:51 21 Laboratory Tests Test 03/24/19 05:40 White Blood Count 8.7 K/UL (4.8-10.8) Red Blood Count 3.58 M/UL (4.70-6.10) L Hemoglobin 10.8 G/DL (14.2-18.0) L Hematocrit 31.7 % (42.0-52.0) L Mean Corpuscular Volume 88 FL (80-99) Mean Corpuscular Hemoglobin 30.0 PG (27.0-31.0) Mean Corpuscular Hemoglobin Concent 34.0 G/DL (32.0-36.0) Red Cell Distribution Width 11.7 % (11.6-14.8) Platelet Count 391 K/UL (150-450) Mean Platelet Volume 7.3 FL (6.5-10.1) Neutrophils (%) (Auto) 64.9 % (45.0-75.0) Lymphocytes (%) (Auto) 22.7 % (20.0-45.0) Monocytes (%) (Auto) 8.4 % (1.0-10.0) Eosinophils (%) (Auto) 3.4 % (0.0-3.0) H Basophils (%) (Auto) 0.7 % (0.0-2.0) Sodium Level 148 MMOL/L (136-145) H Potassium Level 3.6 MMOL/L (3.5-5.1) Chloride Level 111 MMOL/L (98-107) H Carbon Dioxide Level 25 MMOL/L (21-32) Anion Gap 12 mmol/L (5-15) Blood Urea Nitrogen 33 mg/dL (7-18) H Creatinine 2.2 MG/DL (0.55-1.30) H Estimat Glomerular Filtration Rate 33.2 mL/min (>60) Glucose Level 112 MG/DL (74-106) H Calcium Level 10.0 MG/DL (8.5-10.1) Phosphorus Level 5.4 MG/DL (2.5-4.9) H Magnesium Level 2.5 MG/DL (1.8-2.4) H Total Bilirubin 0.3 MG/DL (0.2-1.0) Aspartate Amino Transf (AST/SGOT) 16 U/L (15-37) Alanine Aminotransferase (ALT/SGPT) 39 U/L (12-78) Alkaline Phosphatase 76 U/L (46-116) Total Protein 6.8 G/DL (6.4-8.2) Albumin 2.7 G/DL (3.4-5.0) L Globulin 4.1 g/dL Albumin/Globulin Ratio 0.7 (1.0-2.7) L Random Vancomycin Level 22.0 ug/mL General: well developed, well nourished Head: normocophalic Neck: other EENT: other Neurologic Exam Mental Status: other Speech: other Language: other Cranial Nerve II: fundus normal, visual roberts, no papilledema, other Cranial Nerves III, IV, : PERRLA, EOMI, other Cranial Nerve V: other Cranial Nerve VII: other Cranial Nerve VIII: other Cranial Nerve IX: other Cranial Nerve XI: other Cranial Nerve XII: other Motor System: other Sensory: other Coordination: other - Patient has tracheostomy scar at throat, is tracking intermittently with his eyes, he doesn't follow commands, has rigid tone and spasticity in all extremities and triple flexes in LEs bilaterally with mild decerebrate posturing in UEs on noxious stim. Objective Patient has tracheostomy scar at throat, is tracking intermittently with his eyes, he doesn't follow commands, has rigid tone and spasticity in all extremities and triple flexes in LEs bilaterally with mild decerebrate posturing in UEs on noxious stim. Imaging EEG performed on 03/23/19 - report available today. DATE OF PROCEDURE: 03/23/2019 REQUESTING PHYSICIAN: Bruce Jin M.D. READING PHYSICIAN: Abdoulaye Arteaga M.D. PROCEDURE PERFORMED: Electroencephalogram. HISTORY: This EEG was performed on a 39-year-old gentleman with a history of a seizure disorder and an anoxic encephalopathy. The purpose of this EEG was to evaluate the patient for the degree and type of cerebral dysfunction and to exclude ongoing ictal or interictal phenomena. TECHNICAL NOTE: This EEG was performed on a [employer] Unit with electrodes placed on the scalp according to the International 10-20 system. [id number] and [id number] montages were used. The EEG was technically satisfactory and was performed in the awake and drowsy states. OBSERVATIONS: In the best awake state, the background activity consisted of 6-6.5 Hz theta activity with intermixed delta frequencies. Drowsiness was characterized by slowing of the background in the 4-5 Hz theta range with an increased amount of delta frequencies. No definite focal abnormalities or epileptiform discharges were seen. IMPRESSION: This is an abnormal EEG characterized by slowing of the background in the 6-6.5 Hz theta range with some intermixed delta frequencies. COMMENT: This study is consistent with an encephalopathy of a moderate degree. Clinical correlation is recommended. Abdoulaye Arteaga M.D., M.S.P.H[facility] [address] [place] [address] [phone], fax [phone] Conner Feliciano M.D. [employer] Patient : LATANYA GOODWIN Referring Physician: Chey Long N.P. ID Number: [id number] Service Date: 03/23/19 : 1980 Report Date: 03/23/19 Gender: M Accession No.: [id number] Location: Procedure: MRI Brain no Contrast Indication: Altered mental status, seizures, history of anoxic brain injury Technique: sagittal T1 fast spin echo, axial T1 FLAIR, axial T2 FLAIR, axial T2 FS PROPELLER, axial T2* GRE, axial diffusion weighted images. ADC and exponential ADC maps generated Comparison: Head CT 08/25/2018 Findings: No abnormal areas of restricted diffusion to suggest acute infarction. There is symmetric high cortical and subcortical T2 signal and corresponding decreased T1 signal. This is most pronounced in the temporal lobes bilaterally. No significant cerebellar signal abnormality demonstrated. The vascular flow voids are preserved. There is ex vacuo dilatation of the ventricles and extra-axial CSF spaces... No evidence of acute hemorrhage. No mass effect nor midline shift. Visualized orbits and sinuses are unremarkableNo signal abnormalities corresponding to the parenchymal calcifications described on recent CT scan are demonstrated. Note that when compared to the prior exam, there is interim marked cerebral volume loss. Impression: Marked cortical and subcortical cerebral signal abnormality, consistent with stated clinical history of anoxic encephalopathy. Interim marked cerebral volume loss, since prior study of 08/25/2019, presumably related to the above. Negative for acute intracranial bleed, mass effect, or infarct Dictated By: Joel Dawkins MD Electronically Signed By: Joel Dawkins MD Signed Date/Time 03/23/19 3262 CC: Chey Long N.P.; Lenin Wyatt MD Impression/Recommendations Problems: (1) Seizure disorder (2) Anoxic brain injury (3) Sepsis (4) Acute hypernatremia (5) Dehydration (6) Encephalopathy due to metabolic factor or toxin (7) Acute metabolic encephalopathy (8) Weakness generalized (9) Schizoaffective disorder Status: stable, fever Recommendations Q4 Hour obs Abx as per ID Na 135-145---> Consider adding water flushes to PEG feeding schedule to continue to correct hypernatremia. Telemetry monitoring Maintain normothermia with Tylenol and cooling blanket Maintain normoglycemia with ISS SBP<140 Continue Keppra 1000 mg BID - Ativan 1mg PRN for seizure Replete/ Replace lytes Chey Long N.P. March 24, 2019 21:59
[2019-03-25] VITALS: BP 123/78
[2019-03-25 04:00] VITALS: BP_SYST 137; BP_SYST 146; BP_DIAS 73; BP_DIAS 88
[2019-03-25] MEDS: Piperacillin/Tazobactam 3.375 GM in NS 110 ML IVPB SCH (06:14)
[2019-03-25 07:37] LABS: ALANINE AMINOTRANSFERASE 32 U/L (12-78); ALBUMIN 3.2 G/DL (3.4-5.0); ALBUMIN/GLOBULIN RATIO 0.8 (1.0-2.7); ALKALINE PHOSPHATASE 72 U/L (46-116); ANION GAP 10 mmol/L (5-15); ASPARTATE AMINO TRANSFERASE 17 U/L (15-37); BILIRUBIN,TOTAL 0.3 MG/DL (0.2-1.0); BLOOD UREA NITROGEN 24 mg/dL (7-18); CALCIUM 10.3 MG/DL (8.5-10.1); CARBON DIOXIDE 26 MMOL/L (21-32); CHLORIDE 108 MMOL/L (98-107); CREATININE 1.8 MG/DL (0.55-1.30); PHOSPHORUS 4.2 MG/DL (2.5-4.9); POTASSIUM 3.9 MMOL/L (3.5-5.1); SODIUM 144 MMOL/L (136-145)
[2019-03-25 08:00] VITALS: BP 149/86
[2019-03-25] MEDS: Miralax 17gm pkt NG SCH (08:10)
[2019-03-25] MEDS: Docusate 100mg/10ml Liq GT SCH ×3 (08:10→17:16)
[2019-03-25] MEDS: Thiamine 100mg tab NG SCH (08:11)
[2019-03-25] MEDS: Carvedilol 12.5mg tab GT SCH (08:11)
[2019-03-25] MEDS: levETIRAcetam 500mg/5ml Liquid ORAL SCH ×2 (08:11→20:49)
--- NOTE | 2019-03-25 11:55 | Cardiac Electrophysiology PN ---
Assessment/Plan Assessment/Plan 1. Sinus tachycardia due to severe dehydration as BUN and creatinine ratio was around 50 on admission with sodium of 155. Better 144 with iv fluids per Dr. Barros. Continue Coreg. Echocardiogram EF 60%. 2. Hypertension. Continue Coreg 12.5 mg b.i.d. 3. Sepsis, on IV antibiotic per Dr Shay 4. Dysphagia, status post percutaneous endoscopic gastrostomy placement. 5. History of anoxic brain injury and seizures.MRI brain negative for any acute findings 6. Acute renal failure Cr 2.2, on D5W at 75 cc/hr DW RN Subjective Subjective Nonverbal.Mother at bedside Objective Last 24 Hour Vital Signs Date Time Temp Pulse Resp B/P (MAP) Pulse Ox O2 Delivery O2 Flow Rate FiO2 03/25/19 08:15 Room Air 03/25/19 08:11 94 137/88 03/25/19 08:00 99.0 100 20 149/86 (107) 92 03/25/19 07:37 94 18 95 Room Air 21 03/25/19 04:00 99.4 90 20 137/88 (104) 97 03/25/19 02:12 98 20 94 Room Air 03/25/19 00:00 97.9 90 20 123/78 (93) 96 03/24/19 21:53 82 124/66 03/24/19 21:00 Room Air 03/24/19 20:00 99.1 91 20 136/89 (105) 96 03/24/19 16:32 97.2 86 20 118/64 (82) 98 03/24/19 12:00 98.1 84 20 122/61 (81) 98 Intake and Output 03/24/19 03/25/19 19:00 07:00 Intake Total 1595.0 ml 1705 ml Output Total 1300 ml 2000 ml Balance 295.0 ml -295 ml Free Water 250 ml 220 ml IV Total 985.0 ml 1125 ml Tube Feeding 360 ml 360 ml Output Urine Total 1300 ml 2000 ml # Bowel Movements 2 Laboratory Tests Test 03/25/19 06:07 Sodium Level 144 MMOL/L (136-145) Potassium Level 3.9 MMOL/L (3.5-5.1) Chloride Level 108 MMOL/L (98-107) H Carbon Dioxide Level 26 MMOL/L (21-32) Anion Gap 10 mmol/L (5-15) Blood Urea Nitrogen 24 mg/dL (7-18) H Creatinine 1.8 MG/DL (0.55-1.30) H Estimat Glomerular Filtration Rate 41.8 mL/min (>60) Glucose Level 108 MG/DL (74-106) H Calcium Level 10.3 MG/DL (8.5-10.1) H Phosphorus Level 4.2 MG/DL (2.5-4.9) Magnesium Level 2.3 MG/DL (1.8-2.4) Total Bilirubin 0.3 MG/DL (0.2-1.0) Aspartate Amino Transf (AST/SGOT) 17 U/L (15-37) Alanine Aminotransferase (ALT/SGPT) 32 U/L (12-78) Alkaline Phosphatase 72 U/L (46-116) Total Protein 7.2 G/DL (6.4-8.2) Albumin 3.2 G/DL (3.4-5.0) L Globulin 4.0 g/dL Albumin/Globulin Ratio 0.8 (1.0-2.7) L Random Vancomycin Level 10.1 ug/mL Levetiracetam (Keppra) Level Pending Objective HEAD AND NECK: No JVD. Old tracheostomy site closed. LUNGS: Coarse rhonchi. CARDIOVASCULAR: Tachy S1 and S2 with no gallop. ABDOMEN: Soft, status post G-tube. EXTREMITIES: No pitting edema. Jim Manjarrez MD March 25, 2019 11:55
--- NOTE | 2019-03-25 12:01 | Nephrology Progress Note ---
Assessment/Plan Problem List: (1) Acute renal failure (2) Acute prerenal azotemia Assessment: dehydration (3) Dehydration (4) Seizure disorder (5) Anoxic brain injury (6) Sepsis Assessment Renal failure: Dehydration Hypernatremia, Free water deficit Sepsis Acute metabolic encephalopathy PEG Sz disorder HTN Plan lowering Cr High Vanco level , now lowering Check Vanco level in am- Vanco on hold now increase IV fluids / Albumin bolus GT feeding D5W IV Fluid- Coreg GT monitor electrolytes per orders Subjective ROS Limited/Unobtainable: No Constitutional: Reports: malaise Objective Objective Last 24 Hour Vital Signs Date Time Temp Pulse Resp B/P (MAP) Pulse Ox O2 Delivery O2 Flow Rate FiO2 03/25/19 08:15 Room Air 03/25/19 08:11 94 137/88 03/25/19 08:00 99.0 100 20 149/86 (107) 92 03/25/19 07:37 94 18 95 Room Air 21 03/25/19 04:00 99.4 90 20 137/88 (104) 97 03/25/19 02:12 98 20 94 Room Air 03/25/19 00:00 97.9 90 20 123/78 (93) 96 03/24/19 21:53 82 124/66 03/24/19 21:00 Room Air 03/24/19 20:00 99.1 91 20 136/89 (105) 96 03/24/19 16:32 97.2 86 20 118/64 (82) 98 Intake and Output 03/24/19 03/25/19 19:00 07:00 Intake Total 1595.0 ml 1705 ml Output Total 1300 ml 2000 ml Balance 295.0 ml -295 ml Free Water 250 ml 220 ml IV Total 985.0 ml 1125 ml Tube Feeding 360 ml 360 ml Output Urine Total 1300 ml 2000 ml # Bowel Movements 2 Laboratory Tests 03/25/19 06:07: Sodium Level 144, Potassium Level 3.9, Chloride Level 108H, Carbon Dioxide Level 26, Anion Gap 10, Blood Urea Nitrogen 24H, Creatinine 1.8H, Estimat Glomerular Filtration Rate 41.8, Glucose Level 108H, Calcium Level 10.3H, Phosphorus Level 4.2, Magnesium Level 2.3, Total Bilirubin 0.3, Aspartate Amino Transf (AST/SGOT) 17, Alanine Aminotransferase (ALT/SGPT) 32, Alkaline Phosphatase 72, Total Protein 7.2, Albumin 3.2L, Globulin 4.0, Albumin/Globulin Ratio 0.8L, Random Vancomycin Level 10.1, Levetiracetam (Keppra) Level [Pending] Height (Feet): 5 Height (Inches): 7.00 Weight (Pounds): 109 General Appearance: no apparent distress Neck: limited range of motion Cardiovascular: tachycardia Respiratory/Chest: decreased breath sounds Abdomen: distended Neurologic: other - non verbal Objective no change Janes Barros MD March 25, 2019 12:01
[2019-03-25 12:12] VITALS: BP 138/89
--- NOTE | 2019-03-25 12:39 | Infectious Diseases Prog Note ---
Assessment/Plan Assessment/Plan IMPRESSION: 1. Sepsis 2. Leukocytosis resolved 3. Tachycardia. resolved 4. He has anoxic encephalopathy. 5. MRSA colonization. 6. Hypernatremia and azotemia. 7. Seizure disorder. 8. Hypertension. RECOMMENDATION: Discontinue Zosyn Agree with discharge Subjective ROS Limited/Unobtainable: Yes Neurologic: Reports: other - more alert Allergies: Coded Allergies: No Known Allergies (Unverified , 08/20/18) Objective Vital Signs Last 24 Hour Vital Signs Date Time Temp Pulse Resp B/P (MAP) Pulse Ox O2 Delivery O2 Flow Rate FiO2 03/25/19 12:12 98.3 96 20 138/89 (105) 95 03/25/19 08:15 Room Air 03/25/19 08:11 94 137/88 03/25/19 08:00 99.0 100 20 149/86 (107) 92 03/25/19 07:37 94 18 95 Room Air 21 03/25/19 04:00 99.4 90 20 137/88 (104) 97 03/25/19 02:12 98 20 94 Room Air 03/25/19 00:00 97.9 90 20 123/78 (93) 96 03/24/19 21:53 82 124/66 03/24/19 21:00 Room Air 03/24/19 20:00 99.1 91 20 136/89 (105) 96 03/24/19 16:32 97.2 86 20 118/64 (82) 98 Height (Feet): 5 Height (Inches): 7.00 Weight (Pounds): 109 General Appearance: no acute distress HEENT: mucous membranes moist Respiratory/Chest: lungs clear Cardiovascular: normal rate Abdomen: soft, non tender, other - Gt feeding Extremities: no edema Neurologic/Psychiatric: alert, aphasia Laboratory Tests Test 03/25/19 06:07 Sodium Level 144 MMOL/L (136-145) Potassium Level 3.9 MMOL/L (3.5-5.1) Chloride Level 108 MMOL/L (98-107) H Carbon Dioxide Level 26 MMOL/L (21-32) Anion Gap 10 mmol/L (5-15) Blood Urea Nitrogen 24 mg/dL (7-18) H Creatinine 1.8 MG/DL (0.55-1.30) H Estimat Glomerular Filtration Rate 41.8 mL/min (>60) Glucose Level 108 MG/DL (74-106) H Calcium Level 10.3 MG/DL (8.5-10.1) H Phosphorus Level 4.2 MG/DL (2.5-4.9) Magnesium Level 2.3 MG/DL (1.8-2.4) Total Bilirubin 0.3 MG/DL (0.2-1.0) Aspartate Amino Transf (AST/SGOT) 17 U/L (15-37) Alanine Aminotransferase (ALT/SGPT) 32 U/L (12-78) Alkaline Phosphatase 72 U/L (46-116) Total Protein 7.2 G/DL (6.4-8.2) Albumin 3.2 G/DL (3.4-5.0) L Globulin 4.0 g/dL Albumin/Globulin Ratio 0.8 (1.0-2.7) L Random Vancomycin Level 10.1 ug/mL Levetiracetam (Keppra) Level Pending Current Medications Medications (Trade) Dose Ordered Sig/Yohannes Route PRN Reason Start Time Stop Time Status Last Admin Dose Admin Acetaminophen (Tylenol) 650 mg Q6H PRN GT Mild Pain/Temp > 100.5 03/23/19 19:00 04/20/19 18:59 Albuterol/ Ipratropium (Albuterol/ Ipratropium) 3 ml Q4H PRN HHN Shortness of Breath 03/23/19 19:45 03/26/19 03:44 Bisacodyl (Dulcolax) 10 mg DAILY PRN RECTAL Constipation 03/23/19 19:00 04/22/19 18:59 Carvedilol (Coreg) 25 mg EVERY 12 HOURS GT 03/25/19 21:00 04/20/19 20:59 Dextrose 1,000 ml @ 125 mls/hr Q8H IV 03/24/19 11:15 04/23/19 11:14 03/25/19 12:04 Docusate Sodium (Colace) 100 mg TID GT 03/24/19 09:00 04/23/19 08:59 03/25/19 12:04 Levetiracetam (Keppra) 1,000 mg Q12HR ORAL 03/23/19 21:00 04/20/19 08:59 03/25/19 08:11 Piperacillin Sod/ Tazobactam Sod 3.375 gm/Sodium Chloride 110 ml @ 27.5 mls/hr Q12H IVPB 03/24/19 16:00 03/28/19 11:59 03/25/19 06:14 Polyethylene Glycol (Miralax) 17 gm DAILY NG 03/24/19 09:00 04/20/19 08:59 03/25/19 08:10 Potassium Chloride (K-Dur) 20 meq TWICE A DAY GT 03/24/19 09:00 04/23/19 08:59 03/25/19 08:10 Sennosides (Senokot) 17.2 mg BEDTIME GT 03/23/19 21:00 04/20/19 20:59 03/24/19 21:53 Thiamine HCl (Vitamin B1) 100 mg DAILY NG 03/24/19 09:00 04/20/19 08:59 03/25/19 08:11 Yash Shay MD March 25, 2019 12:39
[2019-03-25 15:57] VITALS: BP 142/82
[2019-03-25 20:00] VITALS: BP 148/68
[2019-03-25] MEDS: Sennosides 8.6mg tab GT SCH (20:48)
[2019-03-25] MEDS: Carvedilol 25mg Tab GT SCH (20:49)
--- NOTE | 2019-03-25 21:08 | General Progress Note ---
Assessment/Plan Problem List: (1) Schizoaffective disorder ICD Codes: F25.9 - Schizoaffective disorder, unspecified SNOMED: 80526537 (2) Seizure disorder ICD Codes: G40.909 - Epilepsy, unspecified, not intractable, without status epilepticus SNOMED: 918623512 (3) Dehydration ICD Codes: E86.0 - Dehydration SNOMED: 55986263, 666738283 (4) Sepsis ICD Codes: A41.9 - Sepsis, unspecified organism SNOMED: 02017982, 286125223 Qualifiers: Qualified Codes: A41.9 - Sepsis, unspecified organism (5) Acute metabolic encephalopathy ICD Codes: G93.41 - Metabolic encephalopathy SNOMED: 76530586, 402356961 Status: stable, progressing, fever Assessment/Plan: no siezure reviewed chart and labs dehydration improved sepsis arf is improved dc planning Subjective ROS Limited/Unobtainable: Yes Allergies: Coded Allergies: No Known Allergies (Unverified , 08/20/18) Objective Last 24 Hour Vital Signs Date Time Temp Pulse Resp B/P (MAP) Pulse Ox O2 Delivery O2 Flow Rate FiO2 03/25/19 20:55 90 20 97 Room Air 21 03/25/19 20:49 80 146/78 03/25/19 20:00 98.4 84 20 148/68 (94) 03/25/19 15:57 98.8 94 20 142/82 (102) 96 03/25/19 12:12 98.3 96 20 138/89 (105) 95 03/25/19 08:15 Room Air 03/25/19 08:11 94 137/88 03/25/19 08:00 99.0 100 20 149/86 (107) 92 03/25/19 07:37 94 18 95 Room Air 21 03/25/19 04:00 99.4 90 20 137/88 (104) 97 03/25/19 02:12 98 20 94 Room Air 03/25/19 00:00 97.9 90 20 123/78 (93) 96 03/24/19 21:53 82 124/66 Intake and Output 03/24/19 03/25/19 19:00 07:00 Intake Total 1595.0 ml 1705 ml Output Total 1300 ml 2000 ml Balance 295.0 ml -295 ml Free Water 250 ml 220 ml IV Total 985.0 ml 1125 ml Tube Feeding 360 ml 360 ml Output Urine Total 1300 ml 2000 ml # Bowel Movements 2 Laboratory Tests 03/25/19 06:07: Sodium Level 144, Potassium Level 3.9, Chloride Level 108H, Carbon Dioxide Level 26, Anion Gap 10, Blood Urea Nitrogen 24H, Creatinine 1.8H, Estimat Glomerular Filtration Rate 41.8, Glucose Level 108H, Calcium Level 10.3H, Phosphorus Level 4.2, Magnesium Level 2.3, Total Bilirubin 0.3, Aspartate Amino Transf (AST/SGOT) 17, Alanine Aminotransferase (ALT/SGPT) 32, Alkaline Phosphatase 72, Total Protein 7.2, Albumin 3.2L, Globulin 4.0, Albumin/Globulin Ratio 0.8L, Random Vancomycin Level 10.1, Levetiracetam (Keppra) Level [Pending] Height (Feet): 5 Height (Inches): 7.00 Weight (Pounds): 109 Neck: supple Cardiovascular: normal rate Respiratory/Chest: lungs clear Lenin Wyatt MD March 25, 2019 21:08
--- NOTE | 2019-03-25 23:36 | Neurology Progress Note ---
Interim History Interim History ROS Limited/Unobtainable: Yes Complaints: AMS Events: This visit was performed on March 25, [address] Jin Review of Systems All Systems: reviewed and negative except above Objective Physical Exam Last Vital Signs Date Time Temp Pulse Resp B/P (MAP) Pulse Ox O2 Delivery O2 Flow Rate FiO2 03/25/19 21:00 Room Air 03/25/19 20:55 90 20 97 21 03/25/19 20:49 146/78 03/25/19 20:00 98.4 Laboratory Tests Test 03/25/19 06:07 Sodium Level 144 MMOL/L (136-145) Potassium Level 3.9 MMOL/L (3.5-5.1) Chloride Level 108 MMOL/L (98-107) H Carbon Dioxide Level 26 MMOL/L (21-32) Anion Gap 10 mmol/L (5-15) Blood Urea Nitrogen 24 mg/dL (7-18) H Creatinine 1.8 MG/DL (0.55-1.30) H Estimat Glomerular Filtration Rate 41.8 mL/min (>60) Glucose Level 108 MG/DL (74-106) H Calcium Level 10.3 MG/DL (8.5-10.1) H Phosphorus Level 4.2 MG/DL (2.5-4.9) Magnesium Level 2.3 MG/DL (1.8-2.4) Total Bilirubin 0.3 MG/DL (0.2-1.0) Aspartate Amino Transf (AST/SGOT) 17 U/L (15-37) Alanine Aminotransferase (ALT/SGPT) 32 U/L (12-78) Alkaline Phosphatase 72 U/L (46-116) Total Protein 7.2 G/DL (6.4-8.2) Albumin 3.2 G/DL (3.4-5.0) L Globulin 4.0 g/dL Albumin/Globulin Ratio 0.8 (1.0-2.7) L Random Vancomycin Level 10.1 ug/mL Levetiracetam (Keppra) Level Pending General: well developed, well nourished Head: normocophalic Neck: other EENT: other Neurologic Exam Mental Status: other Speech: other Language: other Cranial Nerve II: fundus normal, visual roberts, no papilledema, other Cranial Nerves III, IV, : PERRLA, EOMI, other Cranial Nerve V: other Cranial Nerve VII: other Cranial Nerve VIII: other Cranial Nerve IX: other Cranial Nerve XI: other Cranial Nerve XII: other Motor System: other Sensory: other Coordination: other - Patient has tracheostomy scar at throat, is tracking intermittently with his eyes, he doesn't follow commands, has rigid tone and spasticity in all extremities and triple flexes in LEs bilaterally with mild decerebrate posturing in UEs on noxious stim. Objective Patient has tracheostomy scar at throat, is tracking intermittently with his eyes, he doesn't follow commands, has rigid tone and spasticity in all extremities and triple flexes in LEs bilaterally with mild decerebrate posturing in UEs on noxious stim. Impression/Recommendations Problems: (1) Seizure disorder (2) Anoxic brain injury (3) Sepsis (4) Acute hypernatremia (5) Dehydration (6) Encephalopathy due to metabolic factor or toxin (7) Acute metabolic encephalopathy (8) Weakness generalized (9) Schizoaffective disorder Status: stable, progressing, fever Recommendations Q4 Hour obs Abx as per ID Na 135-145---> Consider adding water flushes to PEG feeding schedule to continue to correct hypernatremia. Telemetry monitoring Maintain normothermia with Tylenol and cooling blanket Maintain normoglycemia with ISS SBP<140 Continue Keppra 1000 mg BID - Ativan 1mg PRN for seizure Replete/ Replace Chey Copeland N.P. March 25, 2019 23:36
[2019-03-26] VITALS: BP 136/91
[2019-03-26 04:00] VITALS: BP 139/88
[2019-03-26 08:00] VITALS: BP 134/90
[2019-03-26] MEDS: levETIRAcetam 500mg/5ml Liquid ORAL SCH ×2 (09:04→20:16)
[2019-03-26] MEDS: Docusate 100mg/10ml Liq GT SCH ×3 (09:04→17:28)
[2019-03-26] MEDS: Carvedilol 25mg Tab GT SCH ×2 (09:05→20:16)
[2019-03-26] MEDS: Miralax 17gm pkt NG SCH (09:05)
[2019-03-26] MEDS: Thiamine 100mg tab NG SCH (09:05)
[2019-03-26] MEDS ORDERED: Sterile Water Irrig 1000ml IRRIG ONE (09:43)
[2019-03-26] MEDS ORDERED: Tubing IV Secondary IV ONE (09:43)
[2019-03-26] MEDS ORDERED: NS 275ml ONE (10:14)
[2019-03-26 12:00] VITALS: BP 124/81
--- NOTE | 2019-03-26 14:26 | Nephrology Progress Note ---
Assessment/Plan Problem List: (1) Acute renal failure (2) Acute prerenal azotemia Assessment: dehydration (3) Dehydration (4) Seizure disorder (5) Anoxic brain injury (6) Sepsis Assessment Renal failure: Dehydration Hypernatremia, Free water deficit Sepsis Acute metabolic encephalopathy PEG Sz disorder HTN Plan lowering Cr High Vanco level , now lowering Check Vanco level in am- Vanco on hold now increase IV fluids / Albumin bolus GT feeding D5W IV Fluid- Coreg GT monitor electrolytes per orders Subjective ROS Limited/Unobtainable: Yes Objective Objective Last 24 Hour Vital Signs Date Time Temp Pulse Resp B/P (MAP) Pulse Ox O2 Delivery O2 Flow Rate FiO2 03/26/19 09:53 93 16 96 Room Air 21 03/26/19 09:05 99 134/90 03/26/19 09:00 Room Air 03/26/19 08:00 98.9 99 22 134/90 (105) 97 03/26/19 04:00 98.6 92 18 139/88 (105) 03/26/19 00:00 99.7 95 16 136/91 (106) 03/25/19 21:00 Room Air 03/25/19 20:55 90 20 97 Room Air 21 03/25/19 20:49 80 146/78 03/25/19 20:00 98.4 84 20 148/68 (94) 03/25/19 15:57 98.8 94 20 142/82 (102) 96 Intake and Output 03/25/19 03/26/19 19:00 07:00 Intake Total 2152.5 ml 1275 ml Output Total 1500 ml Balance 652.5 ml 1275 ml Free Water 250 ml 100 ml IV Total 1512.5 ml 875 ml Tube Feeding 390 ml 300 ml Output Urine Total 1500 ml # Bowel Movements 2 Height (Feet): 5 Height (Inches): 7.00 Weight (Pounds): 109 General Appearance: no apparent distress Cardiovascular: tachycardia Respiratory/Chest: decreased breath sounds Abdomen: soft Objective no change Janes Barros MD Mar 26, 2019 14:26
[2019-03-26 16:00] VITALS: BP 113/78
[2019-03-26 20:00] VITALS: BP 112/76
[2019-03-26] MEDS: Sennosides 8.6mg tab GT SCH (20:16)
[2019-03-27] VITALS: BP 103/65
[2019-03-27 04:00] VITALS: BP 102/70
[2019-03-27] MEDS: Acetaminophen 650mg/20.3ml GT PRN (04:21)
[2019-03-27 06:46] LABS: BASOPHILS % (AUTO) 0.7 % (0.0-2.0); EOSINOPHILS % (AUTO) 1.8 % (0.0-3.0); HEMATOCRIT 33.8 % (42.0-52.0); HEMOGLOBIN 11.8 G/DL (14.2-18.0); LYMPHOCYTES % (AUTO) 20.3 % (20.0-45.0); MEAN CORPUSCULAR VOLUME 87 FL (80-99); MONOCYTES % (AUTO) 8.5 % (1.0-10.0); NEUTROPHILS % (AUTO) 68.7 % (45.0-75.0); PLATELET COUNT 430 K/UL (150-450); RED BLOOD COUNT 3.91 M/UL (4.70-6.10); RED CELL DISTRIBUTION WIDTH 11.4 % (11.6-14.8); WHITE BLOOD COUNT 14.6 K/UL (4.8-10.8)
[2019-03-27 07:19] LABS: ALANINE AMINOTRANSFERASE 26 U/L (12-78); ALBUMIN 2.8 G/DL (3.4-5.0); ALBUMIN/GLOBULIN RATIO 0.6 (1.0-2.7); ALKALINE PHOSPHATASE 75 U/L (46-116); ANION GAP 12 mmol/L (5-15); ASPARTATE AMINO TRANSFERASE 18 U/L (15-37); BILIRUBIN,TOTAL 0.3 MG/DL (0.2-1.0); BLOOD UREA NITROGEN 21 mg/dL (7-18); CALCIUM 10.4 MG/DL (8.5-10.1); CARBON DIOXIDE 25 MMOL/L (21-32); CHLORIDE 100 MMOL/L (98-107); CREATININE 1.4 MG/DL (0.55-1.30); PHOSPHORUS 5.4 MG/DL (2.5-4.9); POTASSIUM 4.1 MMOL/L (3.5-5.1); SODIUM 137 MMOL/L (136-145)
[2019-03-27 08:00] VITALS: BP 120/79
[2019-03-27] MEDS: Docusate 100mg/10ml Liq GT SCH ×3 (09:00→17:12)
--- NOTE | 2019-03-27 09:05 | Cardiac Electrophysiology PN ---
Assessment/Plan Assessment/Plan 1. Sinus tachycardia due to severe dehydration as BUN and creatinine ratio was around 50 on admission with sodium of 155. Better with iv fluids Continue Coreg. Echocardiogram EF 60%. 2. Hypertension. Continue Coreg 25 mg b.i.d. 3. Sepsis, on IV antibiotic per Dr Shay 4. Dysphagia, status post percutaneous endoscopic gastrostomy placement. 5. History of anoxic brain injury and seizures.MRI brain negative for any acute findings 6. Acute renal failure Cr 2.2 DW RN Subjective Subjective Nonverbal.No events Objective Last 24 Hour Vital Signs Date Time Temp Pulse Resp B/P (MAP) Pulse Ox O2 Delivery O2 Flow Rate FiO2 03/27/19 04:51 100.2 03/27/19 04:00 100.2 99 19 102/70 (81) 95 03/27/19 00:00 97.6 97 18 103/65 (78) 95 03/26/19 22:33 Room Air 03/26/19 20:16 80 113/78 03/26/19 20:00 97.4 105 18 112/76 (88) 95 03/26/19 19:37 80 16 97 Room Air 21 03/26/19 16:00 99.3 94 22 113/78 (90) 95 03/26/19 12:00 98.9 96 22 124/81 (95) 98 03/26/19 09:53 93 16 96 Room Air 21 03/26/19 09:05 99 134/90 Intake and Output 03/26/19 03/27/19 18:59 06:59 Intake Total 1780 ml 1410 ml Output Total 2100 ml Balance -320 ml 1410 ml Free Water 200 ml 175 ml IV Total 1250 ml 875 ml Tube Feeding 330 ml 360 ml Output Urine Total 2100 ml Laboratory Tests Test 03/27/19 06:00 White Blood Count 14.6 K/UL (4.8-10.8) H Red Blood Count 3.91 M/UL (4.70-6.10) L Hemoglobin 11.8 G/DL (14.2-18.0) L Hematocrit 33.8 % (42.0-52.0) L Mean Corpuscular Volume 87 FL (80-99) Mean Corpuscular Hemoglobin 30.3 PG (27.0-31.0) Mean Corpuscular Hemoglobin Concent 35.0 G/DL (32.0-36.0) Red Cell Distribution Width 11.4 % (11.6-14.8) L Platelet Count 430 K/UL (150-450) Mean Platelet Volume 7.6 FL (6.5-10.1) Neutrophils (%) (Auto) 68.7 % (45.0-75.0) Lymphocytes (%) (Auto) 20.3 % (20.0-45.0) Monocytes (%) (Auto) 8.5 % (1.0-10.0) Eosinophils (%) (Auto) 1.8 % (0.0-3.0) Basophils (%) (Auto) 0.7 % (0.0-2.0) Sodium Level 137 MMOL/L (136-145) Potassium Level 4.1 MMOL/L (3.5-5.1) Chloride Level 100 MMOL/L (98-107) Carbon Dioxide Level 25 MMOL/L (21-32) Anion Gap 12 mmol/L (5-15) Blood Urea Nitrogen 21 mg/dL (7-18) H Creatinine 1.4 MG/DL (0.55-1.30) H Estimat Glomerular Filtration Rate 55.8 mL/min (>60) Glucose Level 152 MG/DL (74-106) H Calcium Level 10.4 MG/DL (8.5-10.1) H Phosphorus Level 5.4 MG/DL (2.5-4.9) H Magnesium Level 1.9 MG/DL (1.8-2.4) Total Bilirubin 0.3 MG/DL (0.2-1.0) Aspartate Amino Transf (AST/SGOT) 18 U/L (15-37) Alanine Aminotransferase (ALT/SGPT) 26 U/L (12-78) Alkaline Phosphatase 75 U/L (46-116) Total Protein 7.2 G/DL (6.4-8.2) Albumin 2.8 G/DL (3.4-5.0) L Globulin 4.4 g/dL Albumin/Globulin Ratio 0.6 (1.0-2.7) L Random Vancomycin Level 2.2 ug/mL Objective HEAD AND NECK: No JVD. Old tracheostomy site closed. LUNGS: Coarse rhonchi. CARDIOVASCULAR: Regular S1 and S2 with no gallop. ABDOMEN: Soft, status post G-tube. EXTREMITIES: No pitting edema. Jim Manjarrez MD Mar 27, 2019 09:05
[2019-03-27] MEDS: levETIRAcetam 500mg/5ml Liquid ORAL SCH ×2 (09:17→21:29)
[2019-03-27] MEDS: Miralax 17gm pkt NG SCH (09:17)
[2019-03-27] MEDS: Thiamine 100mg tab NG SCH (09:18)
[2019-03-27] MEDS: Carvedilol 25mg Tab GT SCH (09:18)
--- NOTE | 2019-03-27 09:20 | Infectious Diseases Prog Note ---
Assessment/Plan Assessment/Plan IMPRESSION: 1. Sepsis 2. Leukocytosis returned 3. Tachycardia. resolved 4. He has anoxic encephalopathy. 5. MRSA colonization. 6. Hypernatremia and azotemia. 7. Seizure disorder. 8. Hypertension. RECOMMENDATION: CXR, Urine culture Start on Rocephin Subjective ROS Limited/Unobtainable: Yes Constitutional: Reports: fever, other - Thqn=186.2 Allergies: Coded Allergies: No Known Allergies (Unverified , 08/20/18) Objective Vital Signs Last 24 Hour Vital Signs Date Time Temp Pulse Resp B/P (MAP) Pulse Ox O2 Delivery O2 Flow Rate FiO2 03/27/19 04:51 100.2 03/27/19 04:00 100.2 99 19 102/70 (81) 95 03/27/19 00:00 97.6 97 18 103/65 (78) 95 03/26/19 22:33 Room Air 03/26/19 20:16 80 113/78 03/26/19 20:00 97.4 105 18 112/76 (88) 95 03/26/19 19:37 80 16 97 Room Air 21 03/26/19 16:00 99.3 94 22 113/78 (90) 95 03/26/19 12:00 98.9 96 22 124/81 (95) 98 03/26/19 09:53 93 16 96 Room Air 21 Height (Feet): 5 Height (Inches): 7.00 Weight (Pounds): 109 General Appearance: cachetic HEENT: other - [place] Respiratory/Chest: lungs clear Cardiovascular: normal rate Abdomen: soft, non tender, other - GT feeding Genitourinary: other - Hansen catheter Extremities: no edema Neurologic/Psychiatric: alert, aphasia Laboratory Tests Test 03/27/19 06:00 White Blood Count 14.6 K/UL (4.8-10.8) H Red Blood Count 3.91 M/UL (4.70-6.10) L Hemoglobin 11.8 G/DL (14.2-18.0) L Hematocrit 33.8 % (42.0-52.0) L Mean Corpuscular Volume 87 FL (80-99) Mean Corpuscular Hemoglobin 30.3 PG (27.0-31.0) Mean Corpuscular Hemoglobin Concent 35.0 G/DL (32.0-36.0) Red Cell Distribution Width 11.4 % (11.6-14.8) L Platelet Count 430 K/UL (150-450) Mean Platelet Volume 7.6 FL (6.5-10.1) Neutrophils (%) (Auto) 68.7 % (45.0-75.0) Lymphocytes (%) (Auto) 20.3 % (20.0-45.0) Monocytes (%) (Auto) 8.5 % (1.0-10.0) Eosinophils (%) (Auto) 1.8 % (0.0-3.0) Basophils (%) (Auto) 0.7 % (0.0-2.0) Sodium Level 137 MMOL/L (136-145) Potassium Level 4.1 MMOL/L (3.5-5.1) Chloride Level 100 MMOL/L (98-107) Carbon Dioxide Level 25 MMOL/L (21-32) Anion Gap 12 mmol/L (5-15) Blood Urea Nitrogen 21 mg/dL (7-18) H Creatinine 1.4 MG/DL (0.55-1.30) H Estimat Glomerular Filtration Rate 55.8 mL/min (>60) Glucose Level 152 MG/DL (74-106) H Calcium Level 10.4 MG/DL (8.5-10.1) H Phosphorus Level 5.4 MG/DL (2.5-4.9) H Magnesium Level 1.9 MG/DL (1.8-2.4) Total Bilirubin 0.3 MG/DL (0.2-1.0) Aspartate Amino Transf (AST/SGOT) 18 U/L (15-37) Alanine Aminotransferase (ALT/SGPT) 26 U/L (12-78) Alkaline Phosphatase 75 U/L (46-116) Total Protein 7.2 G/DL (6.4-8.2) Albumin 2.8 G/DL (3.4-5.0) L Globulin 4.4 g/dL Albumin/Globulin Ratio 0.6 (1.0-2.7) L Random Vancomycin Level 2.2 ug/mL Current Medications Medications (Trade) Dose Ordered Sig/Yohannes Route PRN Reason Start Time Stop Time Status Last Admin Dose Admin Acetaminophen (Tylenol) 650 mg Q6H PRN GT Mild Pain/Temp > 100.5 03/23/19 19:00 04/20/19 18:59 03/27/19 04:21 Bisacodyl (Dulcolax) 10 mg DAILY PRN RECTAL Constipation 03/23/19 19:00 04/22/19 18:59 Carvedilol (Coreg) 25 mg EVERY 12 HOURS GT 03/25/19 21:00 04/20/19 20:59 03/26/19 20:16 Dextrose 1,000 ml @ 125 mls/hr Q8H IV 03/24/19 11:15 04/23/19 11:14 03/27/19 02:39 Docusate Sodium (Colace) 100 mg TID GT 03/24/19 09:00 04/23/19 08:59 03/26/19 17:28 Levetiracetam (Keppra) 1,000 mg Q12HR ORAL 03/23/19 21:00 04/20/19 08:59 03/26/19 20:16 Polyethylene Glycol (Miralax) 17 gm DAILY NG 03/24/19 09:00 04/20/19 08:59 03/26/19 09:05 Potassium Chloride (K-Dur) 20 meq TWICE A DAY GT 03/24/19 09:00 04/23/19 08:59 03/26/19 17:25 Sennosides (Senokot) 17.2 mg BEDTIME GT 03/23/19 21:00 04/20/19 20:59 03/26/19 20:16 Thiamine HCl (Vitamin B1) 100 mg DAILY NG 03/24/19 09:00 04/20/19 08:59 03/26/19 09:05 Yash Shay MD Mar 27, 2019 09:20
[2019-03-27] MEDS: cefTRIAXone 1 GM in D5W 55 ML IVPB SCH (11:21)
[2019-03-27 12:00] VITALS: BP 93/62
[2019-03-27 14:08] LABS: APPEARANCE,URINE CLEAR; BILIRUBIN, URINE NEGATIVE (NEGATIVE); COLOR,URINE PALE YELLOW; GLUCOSE, URINE (UA) NEGATIVE (NEGATIVE); KETONES,URINE NEGATIVE (NEGATIVE); LEUKOCYTE ESTERASE ,URINE NEGATIVE (NEGATIVE); NITRITE,URINE NEGATIVE (NEGATIVE); PH,URINE 6 (4.5-8.0); PROTEIN,URINE 2+ (NEGATIVE); UROBILINOGEN,URINE NORMAL MG/DL (0.0-1.0)
--- NOTE | 2019-03-27 15:09 | Nephrology Progress Note ---
Assessment/Plan Problem List: (1) Acute renal failure (2) Acute prerenal azotemia Assessment: dehydration (3) Dehydration (4) Seizure disorder (5) Anoxic brain injury (6) Sepsis (7) Hypercalcemia Assessment Renal failure: Dehydration Hypernatremia, Free water deficit Sepsis Acute metabolic encephalopathy PEG Sz disorder HTN Plan lowering Cr High Vanco level , now lowering One dose Aredia for high Ca Check Vanco level in am- Vanco on hold now increase IV fluids / Albumin bolus as needed GT feeding NS IV Fluids Coreg GT change to lopressor monitor electrolytes per orders Subjective ROS Limited/Unobtainable: Yes Objective Objective Last 24 Hour Vital Signs Date Time Temp Pulse Resp B/P (MAP) Pulse Ox O2 Delivery O2 Flow Rate FiO2 03/27/19 12:00 97.6 99 20 93/62 (72) 97 03/27/19 09:18 100 120/79 03/27/19 09:00 Room Air 03/27/19 08:06 98 18 96 Room Air 21 03/27/19 08:00 98.7 100 20 120/79 (93) 96 03/27/19 04:51 100.2 03/27/19 04:00 100.2 99 19 102/70 (81) 95 03/27/19 00:00 97.6 97 18 103/65 (78) 95 03/26/19 22:33 Room Air 03/26/19 20:16 80 113/78 03/26/19 20:00 97.4 105 18 112/76 (88) 95 03/26/19 19:37 80 16 97 Room Air 21 03/26/19 16:00 99.3 94 22 113/78 (90) 95 Intake and Output 03/26/19 03/27/19 19:00 07:00 Intake Total 1810 ml 1410 ml Output Total 2100 ml Balance -290 ml 1410 ml Free Water 200 ml 175 ml IV Total 1250 ml 875 ml Tube Feeding 360 ml 360 ml Output Urine Total 2100 ml Laboratory Tests 03/27/19 06:00: White Blood Count 14.6H, Red Blood Count 3.91L, Hemoglobin 11.8L, Hematocrit 33.8L, Mean Corpuscular Volume 87, Mean Corpuscular Hemoglobin 30.3, Mean Corpuscular Hemoglobin Concent 35.0, Red Cell Distribution Width 11.4L, Platelet Count 430, Mean Platelet Volume 7.6, Neutrophils (%) (Auto) 68.7, Lymphocytes (%) (Auto) 20.3, Monocytes (%) (Auto) 8.5, Eosinophils (%) (Auto) 1.8, Basophils (%) (Auto) 0.7, Sodium Level 137, Potassium Level 4.1, Chloride Level 100, Carbon Dioxide Level 25, Anion Gap 12, Blood Urea Nitrogen 21H, Creatinine 1.4H, Estimat Glomerular Filtration Rate 55.8, Glucose Level 152H, Calcium Level 10.4H, Phosphorus Level 5.4H, Magnesium Level 1.9, Total Bilirubin 0.3, Aspartate Amino Transf (AST/SGOT) 18, Alanine Aminotransferase ( ALT/SGPT) 26, Alkaline Phosphatase 75, Total Protein 7.2, Albumin 2.8L, Globulin 4.4, Albumin/Globulin Ratio 0.6L, Random Vancomycin Level 2.2 03/27/19 13:45: Urine Color Pale yellow, Urine Appearance Clear, Urine pH 6, Urine Specific [place] 1.015, Urine Protein 2+H, Urine Glucose (UA) Negative, Urine Ketones Negative, Urine Blood 2+H, Urine Nitrite Negative, Urine Bilirubin Negative, Urine Urobilinogen Normal, Urine Leukocyte Esterase Negative, Urine RBC 2-4H, Urine WBC 0, Urine Squamous Epithelial Cells Occasional, Urine Bacteria None Height (Feet): 5 Height (Inches): 7.00 Weight (Pounds): 109 General Appearance: no apparent distress Cardiovascular: tachycardia Respiratory/Chest: decreased breath sounds Abdomen: soft, other - PEG Objective no change Janes Barros MD Mar 27, 2019 15:09
[2019-03-27 16:00] VITALS: BP 116/76
[2019-03-27] MEDS ORDERED: Pamidronate Disodium Inj 60 MG in Sodium Chloride 550 ML IVPB SCH (16:00)
[2019-03-27 20:00] VITALS: BP 105/67
[2019-03-27] MEDS: Sennosides 8.6mg tab GT SCH (21:00)
[2019-03-27] MEDS: Metoprolol 25mg tab GT SCH (21:00)
[2019-03-27] MEDS ORDERED: Metoprolol 25mg tab GT SCH (21:00)
--- NOTE | 2019-03-27 21:36 | General Progress Note ---
Assessment/Plan Problem List: (1) Schizoaffective disorder ICD Codes: F25.9 - Schizoaffective disorder, unspecified SNOMED: 47259805 (2) Seizure disorder ICD Codes: G40.909 - Epilepsy, unspecified, not intractable, without status epilepticus SNOMED: 858291065 (3) Dehydration ICD Codes: E86.0 - Dehydration SNOMED: 20322029, 355772280 (4) Sepsis ICD Codes: A41.9 - Sepsis, unspecified organism SNOMED: 64872888, 340872383 Qualifiers: Qualified Codes: A41.9 - Sepsis, unspecified organism (5) Acute metabolic encephalopathy ICD Codes: G93.41 - Metabolic encephalopathy SNOMED: 52736184, 743337967 Status: stable, progressing, fever Assessment/Plan: dc in am no wheezing afebrile dehydration improved sepsis arf is improved dc planning Subjective ROS Limited/Unobtainable: Yes Allergies: Coded Allergies: No Known Allergies (Unverified , 08/20/18) Objective Last 24 Hour Vital Signs Date Time Temp Pulse Resp B/P (MAP) Pulse Ox O2 Delivery O2 Flow Rate FiO2 03/27/19 16:00 98.2 104 20 116/76 (89) 95 03/27/19 12:00 97.6 99 20 93/62 (72) 97 03/27/19 09:18 100 120/79 03/27/19 09:00 Room Air 03/27/19 08:06 98 18 96 Room Air 21 03/27/19 08:00 98.7 100 20 120/79 (93) 96 03/27/19 04:51 100.2 03/27/19 04:00 100.2 99 19 102/70 (81) 95 03/27/19 00:00 97.6 97 18 103/65 (78) 95 03/26/19 22:33 Room Air Intake and Output 03/26/19 03/27/19 19:00 07:00 Intake Total 1810 ml 1410 ml Output Total 2100 ml Balance -290 ml 1410 ml Free Water 200 ml 175 ml IV Total 1250 ml 875 ml Tube Feeding 360 ml 360 ml Output Urine Total 2100 ml Laboratory Tests 03/27/19 06:00: White Blood Count 14.6H, Red Blood Count 3.91L, Hemoglobin 11.8L, Hematocrit 33.8L, Mean Corpuscular Volume 87, Mean Corpuscular Hemoglobin 30.3, Mean Corpuscular Hemoglobin Concent 35.0, Red Cell Distribution Width 11.4L, Platelet Count 430, Mean Platelet Volume 7.6, Neutrophils (%) (Auto) 68.7, Lymphocytes (%) (Auto) 20.3, Monocytes (%) (Auto) 8.5, Eosinophils (%) (Auto) 1.8, Basophils (%) (Auto) 0.7, Sodium Level 137, Potassium Level 4.1, Chloride Level 100, Carbon Dioxide Level 25, Anion Gap 12, Blood Urea Nitrogen 21H, Creatinine 1.4H, Estimat Glomerular Filtration Rate 55.8, Glucose Level 152H, Calcium Level 10.4H, Phosphorus Level 5.4H, Magnesium Level 1.9, Total Bilirubin 0.3, Aspartate Amino Transf (AST/SGOT) 18, Alanine Aminotransferase ( ALT/SGPT) 26, Alkaline Phosphatase 75, Total Protein 7.2, Albumin 2.8L, Globulin 4.4, Albumin/Globulin Ratio 0.6L, Random Vancomycin Level 2.2 03/27/19 13:45: Urine Color Pale yellow, Urine Appearance Clear, Urine pH 6, Urine Specific [place] 1.015, Urine Protein 2+H, Urine Glucose (UA) Negative, Urine Ketones Negative, Urine Blood 2+H, Urine Nitrite Negative, Urine Bilirubin Negative, Urine Urobilinogen Normal, Urine Leukocyte Esterase Negative, Urine RBC 2-4H, Urine WBC 0, Urine Squamous Epithelial Cells Occasional, Urine Bacteria None Height (Feet): 5 Height (Inches): 7.00 Weight (Pounds): 109 Cardiovascular: normal rate Respiratory/Chest: lungs clear Abdomen: soft Lenin Wyatt MD Mar 27, 2019 21:36
--- NOTE | 2019-03-27 23:44 | Neurology Progress Note ---
Interim History Interim History ROS Limited/Unobtainable: Yes Complaints: AMS Events: This visit was performed on March 26, [address] Jin Objective Physical Exam Last Vital Signs Date Time Temp Pulse Resp B/P (MAP) Pulse Ox O2 Delivery O2 Flow Rate FiO2 03/27/19 21:00 Room Air 03/27/19 21:00 102 105/67 03/27/19 20:00 99.1 19 97 03/27/19 08:06 21 Laboratory Tests Test 03/27/19 06:00 03/27/19 13:45 White Blood Count 14.6 K/UL (4.8-10.8) H Red Blood Count 3.91 M/UL (4.70-6.10) L Hemoglobin 11.8 G/DL (14.2-18.0) L Hematocrit 33.8 % (42.0-52.0) L Mean Corpuscular Volume 87 FL (80-99) Mean Corpuscular Hemoglobin 30.3 PG (27.0-31.0) Mean Corpuscular Hemoglobin Concent 35.0 G/DL (32.0-36.0) Red Cell Distribution Width 11.4 % (11.6-14.8) L Platelet Count 430 K/UL (150-450) Mean Platelet Volume 7.6 FL (6.5-10.1) Neutrophils (%) (Auto) 68.7 % (45.0-75.0) Lymphocytes (%) (Auto) 20.3 % (20.0-45.0) Monocytes (%) (Auto) 8.5 % (1.0-10.0) Eosinophils (%) (Auto) 1.8 % (0.0-3.0) Basophils (%) (Auto) 0.7 % (0.0-2.0) Sodium Level 137 MMOL/L (136-145) Potassium Level 4.1 MMOL/L (3.5-5.1) Chloride Level 100 MMOL/L (98-107) Carbon Dioxide Level 25 MMOL/L (21-32) Anion Gap 12 mmol/L (5-15) Blood Urea Nitrogen 21 mg/dL (7-18) H Creatinine 1.4 MG/DL (0.55-1.30) H Estimat Glomerular Filtration Rate 55.8 mL/min (>60) Glucose Level 152 MG/DL (74-106) H Calcium Level 10.4 MG/DL (8.5-10.1) H Phosphorus Level 5.4 MG/DL (2.5-4.9) H Magnesium Level 1.9 MG/DL (1.8-2.4) Total Bilirubin 0.3 MG/DL (0.2-1.0) Aspartate Amino Transf (AST/SGOT) 18 U/L (15-37) Alanine Aminotransferase (ALT/SGPT) 26 U/L (12-78) Alkaline Phosphatase 75 U/L (46-116) Total Protein 7.2 G/DL (6.4-8.2) Albumin 2.8 G/DL (3.4-5.0) L Globulin 4.4 g/dL Albumin/Globulin Ratio 0.6 (1.0-2.7) L Random Vancomycin Level 2.2 ug/mL Urine Color Pale yellow Urine Appearance Clear Urine pH 6 (4.5-8.0) Urine Specific [place] 1.015 (1.005-1.035) Urine Protein 2+ (NEGATIVE) H Urine Glucose (UA) Negative (NEGATIVE) Urine Ketones Negative (NEGATIVE) Urine Blood 2+ (NEGATIVE) H Urine Nitrite Negative (NEGATIVE) Urine Bilirubin Negative (NEGATIVE) Urine Urobilinogen Normal MG/DL (0.0-1.0) Urine Leukocyte Esterase Negative (NEGATIVE) Urine RBC 2-4 /HPF (0 - 0) H Urine WBC 0 /HPF (0 - 0) Urine Squamous Epithelial Cells Occasional /LPF Urine Bacteria None /HPF (NONE) General: well developed, well nourished Head: normocophalic Neck: other EENT: other Neurologic Exam Mental Status: other Speech: other Language: other Cranial Nerve II: fundus normal, visual roberts, no papilledema, other Cranial Nerves III, IV, : PERRLA, EOMI, other Cranial Nerve V: other Cranial Nerve VII: other Cranial Nerve VIII: other Cranial Nerve IX: other Cranial Nerve XI: other Cranial Nerve XII: other Motor System: other Sensory: other Coordination: other - Patient has tracheostomy scar at throat, is tracking intermittently with his eyes, he doesn't follow commands, has rigid tone and spasticity in all extremities and triple flexes in LEs bilaterally with mild decerebrate posturing in UEs on noxious stim. Deep Tendon Reflexes: 1+ bicep (L), 1+ bicep (R), 1+ tricep (L), 1+ tricep (R) , 1+ brachioradialis (L), 1+ brachioradialis (R), 1+ knee (L), 1+ knee (R), 1+ ankle (L), 1+ ankle (R) Reflexes: flexor plantar (L), flexor plantar (R); extensor plantar (L), extensor plantar (R) Objective Patient has tracheostomy scar at throat, is tracking intermittently with his eyes, he doesn't follow commands, has rigid tone and spasticity in all extremities and triple flexes in LEs bilaterally with mild decerebrate posturing in UEs on noxious stim. Impression/Recommendations Problems: (1) Seizure disorder (2) Anoxic brain injury (3) Sepsis (4) Acute hypernatremia (5) Dehydration (6) Encephalopathy due to metabolic factor or toxin (7) Acute metabolic encephalopathy (8) Weakness generalized (9) Schizoaffective disorder Status: stable, progressing, fever Recommendations Q4 Hour obs Abx as per ID Na 135-145---> Consider adding water flushes to PEG feeding schedule to continue to correct hypernatremia. Telemetry monitoring Maintain normothermia with Tylenol and cooling blanket Maintain normoglycemia with ISS SBP<140 Continue Keppra 1000 mg BID - Ativan 1mg PRN for seizure Replete/ Replace Chey Copeland N.P. Mar 27, 2019 23:44
[2019-03-28] VITALS (8 sets, daily range): BP systolic 111–131; BP diastolic 66–94
[2019-03-28 07:51] LABS: ANION GAP 9 mmol/L (5-15); BLOOD UREA NITROGEN 21 mg/dL (7-18); CALCIUM 10.7 MG/DL (8.5-10.1); CARBON DIOXIDE 26 MMOL/L (21-32); CHLORIDE 103 MMOL/L (98-107); CREATININE 1.3 MG/DL (0.55-1.30); POTASSIUM 4.5 MMOL/L (3.5-5.1); SODIUM 138 MMOL/L (136-145)
[2019-03-28 07:55] LABS: ALANINE AMINOTRANSFERASE 26 U/L (12-78); ALBUMIN 2.7 G/DL (3.4-5.0); ALBUMIN/GLOBULIN RATIO 0.6 (1.0-2.7); ALKALINE PHOSPHATASE 86 U/L (46-116); ASPARTATE AMINO TRANSFERASE 12 U/L (15-37); BILIRUBIN,TOTAL 0.3 MG/DL (0.2-1.0)
[2019-03-28] MEDS: Miralax 17gm pkt NG SCH (08:23)
[2019-03-28] MEDS: Metoprolol 25mg tab GT SCH ×2 (08:24→21:16)
[2019-03-28] MEDS: levETIRAcetam 500mg/5ml Liquid ORAL SCH ×2 (08:24→21:16)
[2019-03-28] MEDS: Docusate 100mg/10ml Liq GT SCH ×3 (08:24→17:30)
[2019-03-28] MEDS: cefTRIAXone 1 GM in D5W 55 ML IVPB SCH (10:01)
--- NOTE | 2019-03-28 10:27 | Nephrology Progress Note ---
Assessment/Plan Problem List: (1) Acute renal failure (2) Acute prerenal azotemia Assessment: dehydration (3) Dehydration (4) Seizure disorder (5) Anoxic brain injury (6) Sepsis (7) Hypercalcemia Assessment Renal failure: Dehydration Hypernatremia, Free water deficit Sepsis Acute metabolic encephalopathy PEG Sz disorder HTN Plan lowering Cr High Vanco level , now lowering One dose Aredia for high Ca Check Vanco level in am- Vanco on hold now increase IV fluids / Albumin bolus as needed GT feeding NS IV Fluids Coreg GT change to lopressor monitor electrolytes per orders Subjective ROS Limited/Unobtainable: Yes Objective Objective Last 24 Hour Vital Signs Date Time Temp Pulse Resp B/P (MAP) Pulse Ox O2 Delivery O2 Flow Rate FiO2 03/28/19 08:24 109 111/76 03/28/19 08:00 99.3 113 20 121/88 (99) 98 03/28/19 08:00 Room Air 03/28/19 04:00 99.7 109 19 111/76 (88) 95 03/28/19 00:00 97.6 90 18 130/66 (87) 98 03/27/19 21:00 Room Air 03/27/19 21:00 102 105/67 03/27/19 20:00 99.1 102 19 105/67 (80) 97 03/27/19 16:00 98.2 104 20 116/76 (89) 95 03/27/19 12:00 97.6 99 20 93/62 (72) 97 Intake and Output 03/27/19 03/28/19 18:59 06:59 Intake Total 1765.0 ml 530 ml Output Total 2500 ml 302 ml Balance -735.0 ml 228 ml Free Water 200 ml 200 ml IV Total 1205.0 ml Tube Feeding 360 ml 330 ml Output Urine Total 2500 ml 300 ml Stool Total 2 ml # Bowel Movements 1 Laboratory Tests 03/27/19 13:45: Urine Color Pale yellow, Urine Appearance Clear, Urine pH 6, Urine Specific [place] 1.015, Urine Protein 2+H, Urine Glucose (UA) Negative, Urine Ketones Negative, Urine Blood 2+H, Urine Nitrite Negative, Urine Bilirubin Negative, Urine Urobilinogen Normal, Urine Leukocyte Esterase Negative, Urine RBC 2-4H, Urine WBC 0, Urine Squamous Epithelial Cells Occasional, Urine Bacteria None 03/28/19 07:30: Sodium Level 138, Potassium Level 4.5, Chloride Level 103, Carbon Dioxide Level 26, Anion Gap 9, Blood Urea Nitrogen 21H, Creatinine 1.3, Estimat Glomerular Filtration Rate > 60, Glucose Level 115H, Calcium Level 10.7H, Phosphorus Level 5.0H, Total Bilirubin 0.3, Aspartate Amino Transf (AST/SGOT) 12L, Alanine Aminotransferase (ALT/SGPT) 26, Alkaline Phosphatase 86, Total Protein 7.6, Albumin 2.7L, Globulin 4.9, Albumin/Globulin Ratio 0.6L 03/28/19 07:35: Magnesium Level 1.8 Height (Feet): 5 Height (Inches): 7.00 Weight (Pounds): 109 General Appearance: no apparent distress Objective no change Janes Barros MD Mar 28, 2019 10:27
--- NOTE | 2019-03-28 11:10 | General Progress Note ---
Assessment/Plan Problem List: (1) Schizoaffective disorder ICD Codes: F25.9 - Schizoaffective disorder, unspecified SNOMED: 16661118 (2) Seizure disorder ICD Codes: G40.909 - Epilepsy, unspecified, not intractable, without status epilepticus SNOMED: 590974013 (3) Dehydration ICD Codes: E86.0 - Dehydration SNOMED: 71227021, 597015921 (4) Sepsis ICD Codes: A41.9 - Sepsis, unspecified organism SNOMED: 55870817, 822525278 Qualifiers: Qualified Codes: A41.9 - Sepsis, unspecified organism (5) Acute metabolic encephalopathy ICD Codes: G93.41 - Metabolic encephalopathy SNOMED: 52754513, 540219015 Status: stable, progressing, fever Assessment/Plan: dc no wheezing afebrile dehydration improved sepsis arf is improved abx per id see dc summary Subjective ROS Limited/Unobtainable: Yes Allergies: Coded Allergies: No Known Allergies (Unverified , 08/20/18) Objective Last 24 Hour Vital Signs Date Time Temp Pulse Resp B/P (MAP) Pulse Ox O2 Delivery O2 Flow Rate FiO2 03/28/19 08:24 109 111/76 03/28/19 08:00 99.3 113 20 121/88 (99) 98 03/28/19 08:00 Room Air 03/28/19 04:00 99.7 109 19 111/76 (88) 95 03/28/19 00:00 97.6 90 18 130/66 (87) 98 03/27/19 21:00 Room Air 03/27/19 21:00 102 105/67 03/27/19 20:00 99.1 102 19 105/67 (80) 97 03/27/19 16:00 98.2 104 20 116/76 (89) 95 03/27/19 12:00 97.6 99 20 93/62 (72) 97 Intake and Output 03/27/19 03/28/19 18:59 06:59 Intake Total 1765.0 ml 530 ml Output Total 2500 ml 302 ml Balance -735.0 ml 228 ml Free Water 200 ml 200 ml IV Total 1205.0 ml Tube Feeding 360 ml 330 ml Output Urine Total 2500 ml 300 ml Stool Total 2 ml # Bowel Movements 1 Laboratory Tests 03/27/19 13:45: Urine Color Pale yellow, Urine Appearance Clear, Urine pH 6, Urine Specific [place] 1.015, Urine Protein 2+H, Urine Glucose (UA) Negative, Urine Ketones Negative, Urine Blood 2+H, Urine Nitrite Negative, Urine Bilirubin Negative, Urine Urobilinogen Normal, Urine Leukocyte Esterase Negative, Urine RBC 2-4H, Urine WBC 0, Urine Squamous Epithelial Cells Occasional, Urine Bacteria None 03/28/19 07:30: Sodium Level 138, Potassium Level 4.5, Chloride Level 103, Carbon Dioxide Level 26, Anion Gap 9, Blood Urea Nitrogen 21H, Creatinine 1.3, Estimat Glomerular Filtration Rate > 60, Glucose Level 115H, Calcium Level 10.7H, Phosphorus Level 5.0H, Total Bilirubin 0.3, Aspartate Amino Transf (AST/SGOT) 12L, Alanine Aminotransferase (ALT/SGPT) 26, Alkaline Phosphatase 86, Total Protein 7.6, Albumin 2.7L, Globulin 4.9, Albumin/Globulin Ratio 0.6L 03/28/19 07:35: Magnesium Level 1.8 Height (Feet): 5 Height (Inches): 7.00 Weight (Pounds): 109 Cardiovascular: normal rate Respiratory/Chest: lungs clear Abdomen: soft Lenin Wyatt MD Mar 28, 2019 11:10
--- NOTE | 2019-03-28 11:58 | Diagnostic Imaging Report ---
Indication: Dyspnea Comparison: 03/20/2019 A single view chest radiograph was obtained. Findings: Cardiomediastinal appearance is within normal limits for age. The lungs are clear. Pulmonary vascularity is appropriate. The diaphragmatic contour is smooth and costophrenic angles are sharp. No pleural effusions are identified. The bones are unremarkable. Impression: No acute findings
--- NOTE | 2019-03-28 12:04 | Cardiac Electrophysiology PN ---
Assessment/Plan Assessment/Plan 1. Sinus tachycardia due to severe dehydration as BUN and creatinine ratio was around 50 on admission with sodium of 155. Better with iv fluids Continue Coreg. Echocardiogram EF 60%. Repeat ECG 2. Hypertension. Continue Coreg 25 mg b.i.d. 3. Sepsis, on IV antibiotic per Dr Shay 4. Dysphagia, status post percutaneous endoscopic gastrostomy placement. 5. History of anoxic brain injury and seizures.MRI brain negative for any acute findings 6. Acute renal failure Cr 2.2 DW RN Subjective Subjective Nonverbal.Is having tachycardia today.Mother at bedside Objective Last 24 Hour Vital Signs Date Time Temp Pulse Resp B/P (MAP) Pulse Ox O2 Delivery O2 Flow Rate FiO2 03/28/19 08:24 109 111/76 03/28/19 08:00 99.3 113 20 121/88 (99) 98 03/28/19 08:00 Room Air 03/28/19 04:00 99.7 109 19 111/76 (88) 95 03/28/19 00:00 97.6 90 18 130/66 (87) 98 03/27/19 21:00 Room Air 03/27/19 21:00 102 105/67 03/27/19 20:00 99.1 102 19 105/67 (80) 97 03/27/19 16:00 98.2 104 20 116/76 (89) 95 03/27/19 12:00 97.6 99 20 93/62 (72) 97 Intake and Output 03/27/19 03/28/19 18:59 06:59 Intake Total 1765.0 ml 530 ml Output Total 2500 ml 302 ml Balance -735.0 ml 228 ml Free Water 200 ml 200 ml IV Total 1205.0 ml Tube Feeding 360 ml 330 ml Output Urine Total 2500 ml 300 ml Stool Total 2 ml # Bowel Movements 1 Laboratory Tests Test 03/27/19 13:45 03/28/19 07:30 03/28/19 07:35 Urine Color Pale yellow Urine Appearance Clear Urine pH 6 (4.5-8.0) Urine Specific [place] 1.015 (1.005-1.035) Urine Protein 2+ (NEGATIVE) H Urine Glucose (UA) Negative (NEGATIVE) Urine Ketones Negative (NEGATIVE) Urine Blood 2+ (NEGATIVE) H Urine Nitrite Negative (NEGATIVE) Urine Bilirubin Negative (NEGATIVE) Urine Urobilinogen Normal MG/DL (0.0-1.0) Urine Leukocyte Esterase Negative (NEGATIVE) Urine RBC 2-4 /HPF (0 - 0) H Urine WBC 0 /HPF (0 - 0) Urine Squamous Epithelial Cells Occasional /LPF Urine Bacteria None /HPF (NONE) Sodium Level 138 MMOL/L (136-145) Potassium Level 4.5 MMOL/L (3.5-5.1) Chloride Level 103 MMOL/L (98-107) Carbon Dioxide Level 26 MMOL/L (21-32) Anion Gap 9 mmol/L (5-15) Blood Urea Nitrogen 21 mg/dL (7-18) H Creatinine 1.3 MG/DL (0.55-1.30) Estimat Glomerular Filtration Rate > 60 mL/min (>60) Glucose Level 115 MG/DL (74-106) H Calcium Level 10.7 MG/DL (8.5-10.1) H Phosphorus Level 5.0 MG/DL (2.5-4.9) H Total Bilirubin 0.3 MG/DL (0.2-1.0) Aspartate Amino Transf (AST/SGOT) 12 U/L (15-37) L Alanine Aminotransferase (ALT/SGPT) 26 U/L (12-78) Alkaline Phosphatase 86 U/L (46-116) Total Protein 7.6 G/DL (6.4-8.2) Albumin 2.7 G/DL (3.4-5.0) L Globulin 4.9 g/dL Albumin/Globulin Ratio 0.6 (1.0-2.7) L Magnesium Level 1.8 MG/DL (1.8-2.4) Microbiology Date/Time Source Procedure Growth Status 03/27/19 13:45 Indwelling Cath Urine Culture - Preliminary NO GROWTH Resulted Objective HEAD AND NECK: No JVD. Old tracheostomy site closed. LUNGS: Coarse rhonchi. CARDIOVASCULAR: Tachy S1 and S2 with no gallop. ABDOMEN: Soft, status post G-tube. EXTREMITIES: No pitting edema. Jim Manjarrez MD Mar 28, 2019 12:04
--- NOTE | 2019-03-28 13:52 | Infectious Diseases Prog Note ---
Assessment/Plan Assessment/Plan IMPRESSION: 1. Sepsis 2. Leukocytosis returned 3. Tachycardia. resolved 4. He has anoxic encephalopathy. 5. MRSA colonization. 6. Hypernatremia and azotemia. 7. Seizure disorder. 8. Hypertension. RECOMMENDATION: CXR, Urine culture are negative Discontinue Rocephin Agree with discharge Subjective ROS Limited/Unobtainable: Yes Constitutional: Denies: fever Allergies: Coded Allergies: No Known Allergies (Unverified , 08/20/18) Objective Vital Signs Last 24 Hour Vital Signs Date Time Temp Pulse Resp B/P (MAP) Pulse Ox O2 Delivery O2 Flow Rate FiO2 03/28/19 11:56 97.3 121 20 127/73 (91) 98 03/28/19 08:24 109 111/76 03/28/19 08:00 99.3 113 20 121/88 (99) 98 03/28/19 08:00 Room Air 03/28/19 04:00 99.7 109 19 111/76 (88) 95 03/28/19 00:00 97.6 90 18 130/66 (87) 98 03/27/19 21:00 Room Air 03/27/19 21:00 102 105/67 03/27/19 20:00 99.1 102 19 105/67 (80) 97 03/27/19 16:00 98.2 104 20 116/76 (89) 95 Height (Feet): 5 Height (Inches): 7.00 Weight (Pounds): 109 General Appearance: no acute distress HEENT: mucous membranes moist Respiratory/Chest: lungs clear Cardiovascular: normal rate Abdomen: soft, non tender, other - GT feeding Extremities: no edema Neurologic/Psychiatric: alert, aphasia Musculoskeletal: atrophy Microbiology Date/Time Source Procedure Growth Status 03/27/19 13:45 Indwelling Cath Urine Culture - Preliminary NO GROWTH Resulted Laboratory Tests Test 03/28/19 07:30 03/28/19 07:35 Sodium Level 138 MMOL/L (136-145) Potassium Level 4.5 MMOL/L (3.5-5.1) Chloride Level 103 MMOL/L (98-107) Carbon Dioxide Level 26 MMOL/L (21-32) Anion Gap 9 mmol/L (5-15) Blood Urea Nitrogen 21 mg/dL (7-18) H Creatinine 1.3 MG/DL (0.55-1.30) Estimat Glomerular Filtration Rate > 60 mL/min (>60) Glucose Level 115 MG/DL (74-106) H Calcium Level 10.7 MG/DL (8.5-10.1) H Phosphorus Level 5.0 MG/DL (2.5-4.9) H Total Bilirubin 0.3 MG/DL (0.2-1.0) Aspartate Amino Transf (AST/SGOT) 12 U/L (15-37) L Alanine Aminotransferase (ALT/SGPT) 26 U/L (12-78) Alkaline Phosphatase 86 U/L (46-116) Total Protein 7.6 G/DL (6.4-8.2) Albumin 2.7 G/DL (3.4-5.0) L Globulin 4.9 g/dL Albumin/Globulin Ratio 0.6 (1.0-2.7) L Magnesium Level 1.8 MG/DL (1.8-2.4) Current Medications Medications (Trade) Dose Ordered Sig/Yohannes Route PRN Reason Start Time Stop Time Status Last Admin Dose Admin Acetaminophen (Tylenol) 650 mg Q6H PRN GT Mild Pain/Temp > 100.5 03/23/19 19:00 04/20/19 18:59 03/27/19 04:21 Bisacodyl (Dulcolax) 10 mg DAILY PRN RECTAL Constipation 03/23/19 19:00 04/22/19 18:59 Ceftriaxone Sodium 1 gm/ Dextrose 55 ml @ 110 mls/hr Q24H IVPB 03/27/19 11:00 04/03/19 10:59 03/28/19 10:01 Docusate Sodium (Colace) 100 mg TID GT 03/24/19 09:00 04/23/19 08:59 03/28/19 12:23 Lansoprazole (Prevacid) 30 mg DAILY GT 03/27/19 15:15 04/26/19 15:14 03/28/19 08:24 Levetiracetam (Keppra) 1,000 mg Q12HR ORAL 03/23/19 21:00 04/20/19 08:59 03/28/19 08:24 Metoprolol Tartrate (Lopressor) 25 mg Q12HR GT 03/27/19 21:00 04/26/19 20:59 03/28/19 08:24 Polyethylene Glycol (Miralax) 17 gm DAILY NG 03/24/19 09:00 04/20/19 08:59 03/28/19 08:23 Sennosides (Senokot) 17.2 mg BEDTIME GT 03/23/19 21:00 04/20/19 20:59 03/26/19 20:16 Sodium Chloride 1,000 ml @ 75 mls/hr [id number] IV 03/27/19 15:00 04/26/19 14:59 03/27/19 16:20 Yash Shay MD Mar 28, 2019 13:52
[2019-03-28] MEDS: Acetaminophen 650mg/20.3ml GT PRN (17:30)
[2019-03-28] MEDS ORDERED: Isovue-300 100ml vial INJ PRN (17:45)
--- NOTE | 2019-03-28 18:55 | Cardiology Report ---
APPROVED REPORT EXAM: Two-dimensional and M-mode echocardiogram with Doppler and color Doppler. INDICATION Tachycardia M-Mode DIMENSIONS IVSd0.7 (0.7-1.1cm)Left Atrium (MM)2.2 (1.6-4.0cm) LVDd4.8 (3.5-5.6cm)Aortic Root3.6 (2.0-3.7cm) PWd0.7 (0.7-1.1cm)Aortic Cusp Exc.2.0 (1.5-2.0cm) IVSs1.5 cm LVDs3.4 (2.5-4.0cm) PWs1.4 cm Technically difficult study due to poor acoustical windows. Normal left ventricular chamber size, systolic function and wall motion to extent visualized. Left ventricular ejection fraction estimated to be 55- 60%. No evidence of left ventricular hypertrophy . Anterior Echo-free space, may be due to pericardial fat or effusion. All other cardiac chamber sizes are within normal limits. Aortic valve calcification with normal cusp excursion . Mildly thickened mitral valve leaflets with normal excursion. Mild mitral annulus and aortic root calcification. Pulmonic valve not well visualized. IVC at normal size with physiologic collapse . A color flow and spectral Doppler study was performed and revealed: No aortic insufficiency . Mitral diastolic velocities suggest reduced left ventricular relaxation c/w mild LV diastolic dysfunction (Grade I ) Trace mitral regurgitation. Trace tricuspid regurgitation. Tricuspid systolic velocities suggests peak right ventricular systolic pressure of13 mmHg.
[2019-03-28] MEDS: Sennosides 8.6mg tab GT SCH (21:16)
[2019-03-28] MEDS: Piperacillin/Tazobactam 3.375 GM in NS 110 ML IVPB SCH (22:00)
--- NOTE | 2019-03-28 23:56 | Neurology Progress Note ---
Interim History Interim History ROS Limited/Unobtainable: Yes Complaints: AMS Events: This visit was performed on March 28, [address] Jin Interim History Still Febrile/ Tachy/ With Leukocytosis, intermittently lethargic. Review of Systems Neuro Review of Systems No evidence or report of seizures Objective Physical Exam Last Vital Signs Date Time Temp Pulse Resp B/P (MAP) Pulse Ox O2 Delivery O2 Flow Rate FiO2 03/28/19 21:16 124 125/90 03/28/19 20:00 98.8 17 98 03/28/19 08:00 Room Air 03/27/19 08:06 21 Laboratory Tests Test 03/28/19 07:30 03/28/19 07:35 Sodium Level 138 MMOL/L (136-145) Potassium Level 4.5 MMOL/L (3.5-5.1) Chloride Level 103 MMOL/L (98-107) Carbon Dioxide Level 26 MMOL/L (21-32) Anion Gap 9 mmol/L (5-15) Blood Urea Nitrogen 21 mg/dL (7-18) H Creatinine 1.3 MG/DL (0.55-1.30) Estimat Glomerular Filtration Rate > 60 mL/min (>60) Glucose Level 115 MG/DL (74-106) H Calcium Level 10.7 MG/DL (8.5-10.1) H Phosphorus Level 5.0 MG/DL (2.5-4.9) H Total Bilirubin 0.3 MG/DL (0.2-1.0) Aspartate Amino Transf (AST/SGOT) 12 U/L (15-37) L Alanine Aminotransferase (ALT/SGPT) 26 U/L (12-78) Alkaline Phosphatase 86 U/L (46-116) Total Protein 7.6 G/DL (6.4-8.2) Albumin 2.7 G/DL (3.4-5.0) L Globulin 4.9 g/dL Albumin/Globulin Ratio 0.6 (1.0-2.7) L Magnesium Level 1.8 MG/DL (1.8-2.4) General: well developed, well nourished Head: normocophalic Neck: other EENT: other Neurologic Exam Mental Status: other Speech: other Language: other Cranial Nerve II: fundus normal, visual roberts, no papilledema, other Cranial Nerves III, IV, : PERRLA, EOMI, other Cranial Nerve V: other Cranial Nerve VII: other Cranial Nerve VIII: other Cranial Nerve IX: other Cranial Nerve XI: other Cranial Nerve XII: other Motor System: other Sensory: other Coordination: other - Patient has tracheostomy scar at throat, is tracking intermittently with his eyes, he doesn't follow commands, has rigid tone and spasticity in all extremities and triple flexes in LEs bilaterally with mild decerebrate posturing in UEs on noxious stim. Objective Patient has tracheostomy scar at throat, is tracking intermittently with his eyes, he doesn't follow commands, has rigid tone and spasticity in all extremities and triple flexes in LEs bilaterally with mild decerebrate posturing in UEs on noxious stim. Impression/Recommendations Problems: (1) Seizure disorder (2) Anoxic brain injury (3) Sepsis (4) Acute hypernatremia (5) Dehydration (6) Encephalopathy due to metabolic factor or toxin (7) Acute metabolic encephalopathy (8) Weakness generalized (9) Schizoaffective disorder Status: stable, progressing, fever Recommendations Q4 Hour obs Abx as per ID Na 135-145---> Consider INCREASING water flushes to PEG feeding schedule to continue to correct hypernatremia. Telemetry monitoring Maintain normothermia with Tylenol and cooling blanket Maintain normoglycemia with ISS SBP<140 Continue Keppra 1000 mg BID - Ativan 1mg PRN for seizure Replete/ Replace Chey Copeland N.P. Mar 28, 2019 23:56
[2019-03-29] VITALS: BP 112/80
[2019-03-29] MEDS: Acetaminophen 650mg/20.3ml GT PRN ×2 (01:00→21:02)
[2019-03-29 04:00] VITALS: BP 121/75
[2019-03-29] MEDS: Piperacillin/Tazobactam 3.375 GM in NS 110 ML IVPB SCH ×3 (05:27→21:09)
[2019-03-29 06:18] LABS: BASOPHILS % (AUTO) 1.1 % (0.0-2.0); EOSINOPHILS % (AUTO) 1.6 % (0.0-3.0); HEMATOCRIT 34.9 % (42.0-52.0); HEMOGLOBIN 11.9 G/DL (14.2-18.0); LYMPHOCYTES % (AUTO) 18.7 % (20.0-45.0); MEAN CORPUSCULAR VOLUME 88 FL (80-99); MONOCYTES % (AUTO) 8.6 % (1.0-10.0); PLATELET COUNT 470 K/UL (150-450); RED BLOOD COUNT 3.97 M/UL (4.70-6.10); RED CELL DISTRIBUTION WIDTH 11.4 % (11.6-14.8); WHITE BLOOD COUNT 6.7 K/UL (4.8-10.8)
[2019-03-29 06:44] LABS: ALANINE AMINOTRANSFERASE 32 U/L (12-78); ALBUMIN 2.5 G/DL (3.4-5.0); ALBUMIN/GLOBULIN RATIO 0.5 (1.0-2.7); ALKALINE PHOSPHATASE 95 U/L (46-116); ANION GAP 12 mmol/L (5-15); ASPARTATE AMINO TRANSFERASE 17 U/L (15-37); BILIRUBIN,TOTAL 0.3 MG/DL (0.2-1.0); BLOOD UREA NITROGEN 24 mg/dL (7-18); CALCIUM 9.9 MG/DL (8.5-10.1); CARBON DIOXIDE 25 MMOL/L (21-32); CHLORIDE 105 MMOL/L (98-107); CREATININE 1.4 MG/DL (0.55-1.30); PHOSPHORUS 4.4 MG/DL (2.5-4.9); POTASSIUM 3.7 MMOL/L (3.5-5.1); SODIUM 142 MMOL/L (136-145)
[2019-03-29 08:00] VITALS: BP 133/109
[2019-03-29] MEDS: Miralax 17gm pkt NG SCH (09:26)
[2019-03-29] MEDS: levETIRAcetam 500mg/5ml Liquid ORAL SCH ×2 (09:26→21:02)
[2019-03-29] MEDS: Docusate 100mg/10ml Liq GT SCH ×3 (09:26→18:00)
[2019-03-29] MEDS: Metoprolol 25mg tab GT SCH (09:26)
--- NOTE | 2019-03-29 11:13 | Cardiac Electrophysiology PN ---
Assessment/Plan Assessment/Plan 1. Sinus tachycardia due to fever and severe dehydration. Better with iv fluids Continue Coreg. Echocardiogram EF 60%. 2. Hypertension. Continue Coreg 25 mg b.i.d. 3. Sepsis, on IV antibiotic per Dr Shay. CT abdomen pending today 4. Dysphagia, status post percutaneous endoscopic gastrostomy placement. 5. History of anoxic brain injury and seizures. MRI brain negative for any acute findings 6. Acute renal failure and dehydration Cr 2.2 DW RN Subjective Subjective Nonverbal but alert. Has fever 101.6 and is NPO for CT abdomen..Mother at bedside Objective Last 24 Hour Vital Signs Date Time Temp Pulse Resp B/P (MAP) Pulse Ox O2 Delivery O2 Flow Rate FiO2 03/29/19 09:26 117 121/75 03/29/19 08:00 99.2 108 20 133/109 (117) 98 03/29/19 08:00 Room Air 03/29/19 04:00 101.6 117 20 121/75 (90) 95 03/29/19 01:30 101.2 03/29/19 00:00 100.9 119 20 112/80 (91) 95 03/28/19 21:16 124 125/90 03/28/19 21:00 Room Air 03/28/19 20:00 98.8 124 17 125/90 (102) 98 03/28/19 18:00 99.6 122 20 131/94 (106) 96 03/28/19 16:20 101.3 110 20 120/72 (88) 98 03/28/19 15:29 98.4 110 20 119/69 (86) 98 03/28/19 14:30 108 03/28/19 11:56 97.3 121 20 127/73 (91) 98 Intake and Output 03/28/19 03/29/19 19:00 07:00 Intake Total 1230 ml 470 ml Output Total 1201 ml Balance 1230 ml -731 ml Free Water 250 ml 200 ml IV Total 650 ml Tube Feeding 330 ml 270 ml Output Urine Total 1200 ml Stool Total 1 ml # Voids 1 Laboratory Tests Test 03/29/19 06:00 White Blood Count 6.7 K/UL (4.8-10.8) Red Blood Count 3.97 M/UL (4.70-6.10) L Hemoglobin 11.9 G/DL (14.2-18.0) L Hematocrit 34.9 % (42.0-52.0) L Mean Corpuscular Volume 88 FL (80-99) Mean Corpuscular Hemoglobin 29.9 PG (27.0-31.0) Mean Corpuscular Hemoglobin Concent 34.1 G/DL (32.0-36.0) Red Cell Distribution Width 11.4 % (11.6-14.8) L Platelet Count 470 K/UL (150-450) H Mean Platelet Volume 7.6 FL (6.5-10.1) Neutrophils (%) (Auto) 70.0 % (45.0-75.0) Lymphocytes (%) (Auto) 18.7 % (20.0-45.0) L Monocytes (%) (Auto) 8.6 % (1.0-10.0) Eosinophils (%) (Auto) 1.6 % (0.0-3.0) Basophils (%) (Auto) 1.1 % (0.0-2.0) Sodium Level 142 MMOL/L (136-145) Potassium Level 3.7 MMOL/L (3.5-5.1) Chloride Level 105 MMOL/L (98-107) Carbon Dioxide Level 25 MMOL/L (21-32) Anion Gap 12 mmol/L (5-15) Blood Urea Nitrogen 24 mg/dL (7-18) H Creatinine 1.4 MG/DL (0.55-1.30) H Estimat Glomerular Filtration Rate 55.8 mL/min (>60) Glucose Level 119 MG/DL (74-106) H Calcium Level 9.9 MG/DL (8.5-10.1) Phosphorus Level 4.4 MG/DL (2.5-4.9) Magnesium Level 1.9 MG/DL (1.8-2.4) Total Bilirubin 0.3 MG/DL (0.2-1.0) Aspartate Amino Transf (AST/SGOT) 17 U/L (15-37) Alanine Aminotransferase (ALT/SGPT) 32 U/L (12-78) Alkaline Phosphatase 95 U/L (46-116) Total Protein 7.4 G/DL (6.4-8.2) Albumin 2.5 G/DL (3.4-5.0) L Globulin 4.9 g/dL Albumin/Globulin Ratio 0.5 (1.0-2.7) L Microbiology Date/Time Source Procedure Growth Status 03/27/19 13:45 Indwelling Cath Urine Culture - Preliminary NO GROWTH AFTER 24 HOURS Resulted Objective HEAD AND NECK: No JVD. Old tracheostomy site closed. LUNGS: Coarse rhonchi. CARDIOVASCULAR: Tachy S1 and S2 with no gallop. ABDOMEN: Soft, status post G-tube. EXTREMITIES: No pitting edema. Jim Manjarrez MD Mar 29, 2019 11:13
[2019-03-29 12:00] VITALS: BP 127/78
--- NOTE | 2019-03-29 13:18 | Infectious Diseases Prog Note ---
Assessment/Plan Assessment/Plan IMPRESSION: 1. Fever 2. Leukocytosis resolved 3. Tachycardia. 4. He has anoxic encephalopathy. 5. MRSA colonization. 6. Hypernatremia and azotemia. 7. Seizure disorder. 8. Hypertension. RECOMMENDATION: repeat blood cultures continue Zosyn, Add IV Vancomycin will f/u CT scan of abdomen & pelvis Subjective ROS Limited/Unobtainable: Yes Constitutional: Reports: fever Allergies: Coded Allergies: No Known Allergies (Unverified , 08/20/18) Objective Vital Signs Last 24 Hour Vital Signs Date Time Temp Pulse Resp B/P (MAP) Pulse Ox O2 Delivery O2 Flow Rate FiO2 03/29/19 09:26 117 121/75 03/29/19 08:00 99.2 108 20 133/109 (117) 98 03/29/19 08:00 Room Air 03/29/19 04:00 101.6 117 20 121/75 (90) 95 03/29/19 01:30 101.2 03/29/19 00:00 100.9 119 20 112/80 (91) 95 03/28/19 21:16 124 125/90 03/28/19 21:00 Room Air 03/28/19 20:00 98.8 124 17 125/90 (102) 98 03/28/19 18:00 99.6 122 20 131/94 (106) 96 03/28/19 16:20 101.3 110 20 120/72 (88) 98 03/28/19 15:29 98.4 110 20 119/69 (86) 98 03/28/19 14:30 108 Height (Feet): 5 Height (Inches): 7.00 Weight (Pounds): 109 General Appearance: no acute distress HEENT: mucous membranes moist Respiratory/Chest: lungs clear Cardiovascular: tachycardia Abdomen: soft, non tender, other - GT feeding Extremities: no edema Neurologic/Psychiatric: alert, aphasia Microbiology Date/Time Source Procedure Growth Status 03/27/19 13:45 Indwelling Cath Urine Culture - Preliminary NO GROWTH AFTER 24 HOURS Resulted Laboratory Tests Test 03/29/19 06:00 White Blood Count 6.7 K/UL (4.8-10.8) Red Blood Count 3.97 M/UL (4.70-6.10) L Hemoglobin 11.9 G/DL (14.2-18.0) L Hematocrit 34.9 % (42.0-52.0) L Mean Corpuscular Volume 88 FL (80-99) Mean Corpuscular Hemoglobin 29.9 PG (27.0-31.0) Mean Corpuscular Hemoglobin Concent 34.1 G/DL (32.0-36.0) Red Cell Distribution Width 11.4 % (11.6-14.8) L Platelet Count 470 K/UL (150-450) H Mean Platelet Volume 7.6 FL (6.5-10.1) Neutrophils (%) (Auto) 70.0 % (45.0-75.0) Lymphocytes (%) (Auto) 18.7 % (20.0-45.0) L Monocytes (%) (Auto) 8.6 % (1.0-10.0) Eosinophils (%) (Auto) 1.6 % (0.0-3.0) Basophils (%) (Auto) 1.1 % (0.0-2.0) Sodium Level 142 MMOL/L (136-145) Potassium Level 3.7 MMOL/L (3.5-5.1) Chloride Level 105 MMOL/L (98-107) Carbon Dioxide Level 25 MMOL/L (21-32) Anion Gap 12 mmol/L (5-15) Blood Urea Nitrogen 24 mg/dL (7-18) H Creatinine 1.4 MG/DL (0.55-1.30) H Estimat Glomerular Filtration Rate 55.8 mL/min (>60) Glucose Level 119 MG/DL (74-106) H Calcium Level 9.9 MG/DL (8.5-10.1) Phosphorus Level 4.4 MG/DL (2.5-4.9) Magnesium Level 1.9 MG/DL (1.8-2.4) Total Bilirubin 0.3 MG/DL (0.2-1.0) Aspartate Amino Transf (AST/SGOT) 17 U/L (15-37) Alanine Aminotransferase (ALT/SGPT) 32 U/L (12-78) Alkaline Phosphatase 95 U/L (46-116) Total Protein 7.4 G/DL (6.4-8.2) Albumin 2.5 G/DL (3.4-5.0) L Globulin 4.9 g/dL Albumin/Globulin Ratio 0.5 (1.0-2.7) L Current Medications Medications (Trade) Dose Ordered Sig/Yohannes Route PRN Reason Start Time Stop Time Status Last Admin Dose Admin Acetaminophen (Tylenol) 650 mg Q6H PRN GT Mild Pain/Temp > 100.5 03/23/19 19:00 04/20/19 18:59 03/29/19 01:00 Barium Sulfate (Readi-Cat 2) 450 ml NOW PRN ORAL Radiology Procedure 03/28/19 17:45 03/30/19 17:37 Barium Sulfate (Readi-Cat 2) 450 ml NOW PRN ORAL Radiology Procedure 03/29/19 09:30 03/31/19 09:20 Bisacodyl (Dulcolax) 10 mg DAILY PRN RECTAL Constipation 03/23/19 19:00 04/22/19 18:59 Docusate Sodium (Colace) 100 mg TID GT 03/24/19 09:00 04/23/19 08:59 03/29/19 09:26 Iopamidol (Isovue-300 100ml) 100 ml NOW PRN INJ Radiology Procedure 03/28/19 17:45 03/30/19 17:44 Lansoprazole (Prevacid) 30 mg DAILY GT 03/27/19 15:15 04/26/19 15:14 03/29/19 09:26 Levetiracetam (Keppra) 1,000 mg Q12HR ORAL 03/23/19 21:00 04/20/19 08:59 03/29/19 09:26 Metoprolol Tartrate (Lopressor) 25 mg Q12HR GT 03/27/19 21:00 04/26/19 20:59 03/29/19 09:26 Piperacillin Sod/ Tazobactam Sod 3.375 gm/Sodium Chloride 110 ml @ 27.5 mls/hr EVERY 8 HOURS IVPB 03/28/19 22:00 04/02/19 21:59 03/29/19 05:27 Polyethylene Glycol (Miralax) 17 gm DAILY NG 03/24/19 09:00 04/20/19 08:59 03/29/19 09:26 Sennosides (Senokot) 17.2 mg BEDTIME GT 03/23/19 21:00 04/20/19 20:59 03/28/19 21:16 Sodium Chloride 1,000 ml @ 75 mls/hr [id number] IV 03/27/19 15:00 04/26/19 14:59 03/29/19 05:45 Yash Shay MD Mar 29, 2019 13:18
--- NOTE | 2019-03-29 14:07 | Nephrology Progress Note ---
Assessment/Plan Problem List: (1) Acute renal failure (2) Acute prerenal azotemia Assessment: dehydration (3) Dehydration (4) Seizure disorder (5) Anoxic brain injury (6) Sepsis (7) Hypercalcemia Assessment Renal failure: Dehydration Hypernatremia, Free water deficit Sepsis Acute metabolic encephalopathy PEG Sz disorder HTN Plan lowering Cr High Vanco level , now lowering One dose Aredia for high Ca Check Vanco level in am- Vanco on hold now increase IV fluids / Albumin bolus as needed GT feeding NS IV Fluids Coreg GT change to lopressor monitor electrolytes per orders Subjective ROS Limited/Unobtainable: Yes Objective Objective Last 24 Hour Vital Signs Date Time Temp Pulse Resp B/P (MAP) Pulse Ox O2 Delivery O2 Flow Rate FiO2 03/29/19 09:26 117 121/75 03/29/19 08:00 99.2 108 20 133/109 (117) 98 03/29/19 08:00 Room Air 03/29/19 04:00 101.6 117 20 121/75 (90) 95 03/29/19 01:30 101.2 03/29/19 00:00 100.9 119 20 112/80 (91) 95 03/28/19 21:16 124 125/90 03/28/19 21:00 Room Air 03/28/19 20:00 98.8 124 17 125/90 (102) 98 03/28/19 18:00 99.6 122 20 131/94 (106) 96 03/28/19 16:20 101.3 110 20 120/72 (88) 98 03/28/19 15:29 98.4 110 20 119/69 (86) 98 03/28/19 14:30 108 Intake and Output 03/28/19 03/29/19 19:00 07:00 Intake Total 1230 ml 470 ml Output Total 1201 ml Balance 1230 ml -731 ml Free Water 250 ml 200 ml IV Total 650 ml Tube Feeding 330 ml 270 ml Output Urine Total 1200 ml Stool Total 1 ml # Voids 1 Laboratory Tests 03/29/19 06:00: White Blood Count 6.7, Red Blood Count 3.97L, Hemoglobin 11.9L, Hematocrit 34.9L , Mean Corpuscular Volume 88, Mean Corpuscular Hemoglobin 29.9, Mean Corpuscular Hemoglobin Concent 34.1, Red Cell Distribution Width 11.4L, Platelet Count 470H, Mean Platelet Volume 7.6, Neutrophils (%) (Auto) 70.0, Lymphocytes (%) (Auto) 18.7L, Monocytes (%) (Auto) 8.6, Eosinophils (%) (Auto) 1.6, Basophils (%) (Auto) 1.1, Sodium Level 142, Potassium Level 3.7, Chloride Level 105, Carbon Dioxide Level 25, Anion Gap 12, Blood Urea Nitrogen 24H, Creatinine 1.4H, Estimat Glomerular Filtration Rate 55.8, Glucose Level 119H, Calcium Level 9.9, Phosphorus Level 4.4, Magnesium Level 1.9, Total Bilirubin 0.3, Aspartate Amino Transf (AST/SGOT) 17, Alanine Aminotransferase (ALT/SGPT) 32, Alkaline Phosphatase 95, Total Protein 7.4, Albumin 2.5L, Globulin 4.9, Albumin/Globulin Ratio 0.5L Height (Feet): 5 Height (Inches): 7.00 Weight (Pounds): 109 General Appearance: no apparent distress Objective no change Janes Barros MD Mar 29, 2019 14:07
[2019-03-29] MEDS ORDERED: Vancomycin 1gm/D5W 275ml IVPB ONE ×2 (14:30)
[2019-03-29 16:00] VITALS: BP 136/88
--- NOTE | 2019-03-29 16:01 | Diagnostic Imaging Report ---
Indication: Abdominal distention Technique: Spiral acquisitions obtained through the abdomen and pelvis. Patient given enteric contrast. No IV contrast utilized, per referring physician request.. Multiplanar reconstructions were generated. Total dose length product 834.88 mGycm. CTDIvol(s) 15.03 mGy. Dose reduction achieved using automated exposure control Comparison: None Findings: Ingested contrast is traversed only a short distance into the small bowel. There is diffuse mild dilatation of the proximal to mid small bowel, collapsed distal small bowel loops. Uncertain point of transition although probably in the lower mid abdomen/upper pelvis. There is only minimal forward transit of contrast There is mild distention of the distal sigmoid and rectum by what appears to be fluid contents. No downstream obstructive lesion demonstrated. There is colonic diverticulosis. The appendix is normal. No free or loculated intraperitoneal gas or fluid is evident. There is edema of the presacral fat. There are surgical clips in the anterior gastric wall. There is a gastrostomy in appropriate position in the gastric body. The distal esophagus and duodenum are unremarkable. Lack of IV contrast limits assessment of the solid organs. Liver, gallbladder, bile ducts, pancreas, spleen, adrenals are unremarkable. 1 cm exophytic cyst comes off of the pole region of the left kidney, as well as a smaller exophytic subcentimeter low-attenuation lesion which is too small to characterize. There is also a very subtle 2 cm fluid attenuation cyst coming off of the lower pole. The right kidney is unremarkable. No pelvic mass or adenopathy. There are degenerative changes of the lumbar spine. The lung bases demonstrate posterior dependent and left basilar atelectatic changes. Impression: Mildly dilated proximal to mid small bowel with extremely slow forward flow of ingested contrast. Presence of collapsed distal small bowel loops raises concern for small bowel obstruction of uncertain etiology. Given the lack of a definitive transition point, however, findings could also represent inflammatory/enteritis changes. Fluid in the colon, could indicate diarrheal illness Nonspecific edema of the presacral fat Gastrostomy. Surgical clips seen in the anterior gastric wall, of uncertain etiology, could represent gastropexy fasteners. Correlate with surgical history Left renal cysts Posterior dependent basilar pulmonary atelectatic changes and degenerative spondylosis incidentally noted Critical value findings phoned to Dr. Tej Shay at the time of interpretation The CT scanner at [facility] is accredited by the [employer] and the scans are performed using protocols designed to limit radiation exposure to as low as reasonably achievable to attain images of sufficient resolution adequate for diagnostic evaluation.
[2019-03-29 20:00] VITALS: BP 121/86
[2019-03-29] MEDS: Sennosides 8.6mg tab GT SCH (21:00)
[2019-03-29] MEDS: Metoprolol Tartrate 50mg tab GT SCH (21:02)
--- NOTE | 2019-03-29 22:29 | General Progress Note ---
Assessment/Plan Problem List: (1) Schizoaffective disorder ICD Codes: F25.9 - Schizoaffective disorder, unspecified SNOMED: 85856528 (2) Seizure disorder ICD Codes: G40.909 - Epilepsy, unspecified, not intractable, without status epilepticus SNOMED: 357361064 (3) Dehydration ICD Codes: E86.0 - Dehydration SNOMED: 38380543, 492522224 (4) Sepsis ICD Codes: A41.9 - Sepsis, unspecified organism SNOMED: 01979505, 504624577 Qualifiers: Qualified Codes: A41.9 - Sepsis, unspecified organism (5) Acute metabolic encephalopathy ICD Codes: G93.41 - Metabolic encephalopathy SNOMED: 97851894, 553753843 Status: stable, progressing, unchanged, fever Assessment/Plan: sbo? consulted dr reyna and dr mcbride afebrilendenton seizure afebrile sepsis arf is improved abx per id see dc summary Subjective ROS Limited/Unobtainable: Yes Allergies: Coded Allergies: No Known Allergies (Unverified , 08/20/18) Objective Last 24 Hour Vital Signs Date Time Temp Pulse Resp B/P (MAP) Pulse Ox O2 Delivery O2 Flow Rate FiO2 03/29/19 21:32 101.7 03/29/19 21:02 133 127/81 03/29/19 21:00 Room Air 03/29/19 20:00 101.7 133 19 121/86 (98) 97 03/29/19 16:00 99.0 128 20 136/88 (104) 98 03/29/19 12:00 98.6 104 20 127/78 (94) 96 03/29/19 09:26 117 121/75 03/29/19 08:00 99.2 108 20 133/109 (117) 98 03/29/19 08:00 Room Air 03/29/19 04:00 101.6 117 20 121/75 (90) 95 03/29/19 00:00 100.9 119 20 112/80 (91) 95 Intake and Output 03/28/19 03/29/19 19:00 07:00 Intake Total 1230 ml 545 ml Output Total 1201 ml Balance 1230 ml -656 ml Free Water 250 ml 200 ml IV Total 650 ml 75 ml Tube Feeding 330 ml 270 ml Output Urine Total 1200 ml Stool Total 1 ml # Voids 1 Laboratory Tests 03/29/19 06:00: White Blood Count 6.7, Red Blood Count 3.97L, Hemoglobin 11.9L, Hematocrit 34.9L , Mean Corpuscular Volume 88, Mean Corpuscular Hemoglobin 29.9, Mean Corpuscular Hemoglobin Concent 34.1, Red Cell Distribution Width 11.4L, Platelet Count 470H, Mean Platelet Volume 7.6, Neutrophils (%) (Auto) 70.0, Lymphocytes (%) (Auto) 18.7L, Monocytes (%) (Auto) 8.6, Eosinophils (%) (Auto) 1.6, Basophils (%) (Auto) 1.1, Sodium Level 142, Potassium Level 3.7, Chloride Level 105, Carbon Dioxide Level 25, Anion Gap 12, Blood Urea Nitrogen 24H, Creatinine 1.4H, Estimat Glomerular Filtration Rate 55.8, Glucose Level 119H, Calcium Level 9.9, Phosphorus Level 4.4, Magnesium Level 1.9, Total Bilirubin 0.3, Aspartate Amino Transf (AST/SGOT) 17, Alanine Aminotransferase (ALT/SGPT) 32, Alkaline Phosphatase 95, Total Protein 7.4, Albumin 2.5L, Globulin 4.9, Albumin/Globulin Ratio 0.5L Height (Feet): 5 Height (Inches): 7.00 Weight (Pounds): 109 General Appearance: confused Abdomen: tender Lenin Wyatt MD Mar 29, 2019 22:29
--- NOTE | 2019-03-29 23:43 | Neurology Progress Note ---
Interim History Interim History ROS Limited/Unobtainable: Yes Complaints: AMS Events: This visit was performed on March 29, [address] Jin Interim History Fever and leukocytosis in the last 1-2 days Review of Systems Neuro Review of Systems Patient has become slightly more lethargic with tachycardia and fever All Systems: reviewed and negative except above Objective Physical Exam Last Vital Signs Date Time Temp Pulse Resp B/P (MAP) Pulse Ox O2 Delivery O2 Flow Rate FiO2 03/29/19 21:32 101.7 03/29/19 21:02 133 127/81 03/29/19 21:00 Room Air 03/29/19 20:00 19 97 03/27/19 08:06 21 Laboratory Tests Test 03/29/19 06:00 White Blood Count 6.7 K/UL (4.8-10.8) Red Blood Count 3.97 M/UL (4.70-6.10) L Hemoglobin 11.9 G/DL (14.2-18.0) L Hematocrit 34.9 % (42.0-52.0) L Mean Corpuscular Volume 88 FL (80-99) Mean Corpuscular Hemoglobin 29.9 PG (27.0-31.0) Mean Corpuscular Hemoglobin Concent 34.1 G/DL (32.0-36.0) Red Cell Distribution Width 11.4 % (11.6-14.8) L Platelet Count 470 K/UL (150-450) H Mean Platelet Volume 7.6 FL (6.5-10.1) Neutrophils (%) (Auto) 70.0 % (45.0-75.0) Lymphocytes (%) (Auto) 18.7 % (20.0-45.0) L Monocytes (%) (Auto) 8.6 % (1.0-10.0) Eosinophils (%) (Auto) 1.6 % (0.0-3.0) Basophils (%) (Auto) 1.1 % (0.0-2.0) Sodium Level 142 MMOL/L (136-145) Potassium Level 3.7 MMOL/L (3.5-5.1) Chloride Level 105 MMOL/L (98-107) Carbon Dioxide Level 25 MMOL/L (21-32) Anion Gap 12 mmol/L (5-15) Blood Urea Nitrogen 24 mg/dL (7-18) H Creatinine 1.4 MG/DL (0.55-1.30) H Estimat Glomerular Filtration Rate 55.8 mL/min (>60) Glucose Level 119 MG/DL (74-106) H Calcium Level 9.9 MG/DL (8.5-10.1) Phosphorus Level 4.4 MG/DL (2.5-4.9) Magnesium Level 1.9 MG/DL (1.8-2.4) Total Bilirubin 0.3 MG/DL (0.2-1.0) Aspartate Amino Transf (AST/SGOT) 17 U/L (15-37) Alanine Aminotransferase (ALT/SGPT) 32 U/L (12-78) Alkaline Phosphatase 95 U/L (46-116) Total Protein 7.4 G/DL (6.4-8.2) Albumin 2.5 G/DL (3.4-5.0) L Globulin 4.9 g/dL Albumin/Globulin Ratio 0.5 (1.0-2.7) L General: well developed, well nourished Head: normocophalic Neck: other EENT: other Neurologic Exam Mental Status: other Speech: other Language: other Cranial Nerve II: fundus normal, visual roberts, no papilledema, other Cranial Nerves III, IV, : PERRLA, EOMI, other Cranial Nerve V: other Cranial Nerve VII: other Cranial Nerve VIII: other Cranial Nerve IX: other Cranial Nerve XI: other Cranial Nerve XII: other Motor System: other Sensory: other Coordination: other - Patient has tracheostomy scar at throat, is tracking intermittently with his eyes, he doesn't follow commands, has rigid tone and spasticity in all extremities and triple flexes in LEs bilaterally with mild decerebrate posturing in UEs on noxious stim. Objective Patient has tracheostomy scar at throat, is tracking intermittently with his eyes, he doesn't follow commands, has rigid tone and spasticity in all extremities and triple flexes in LEs bilaterally with mild decerebrate posturing in UEs on noxious stim. He has nystagmus on gaze at rest bilaterally - He is somewhat more lethargic with fever now. Impression/Recommendations Problems: (1) Seizure disorder (2) Anoxic brain injury (3) Sepsis (4) Acute hypernatremia (5) Dehydration (6) Encephalopathy due to metabolic factor or toxin (7) Acute metabolic encephalopathy (8) Weakness generalized (9) Schizoaffective disorder Status: stable, progressing, unchanged, fever Recommendations Q4 Hour obs Abx as per ID Na 135-145---> Consider increasing amount of water flushes to PEG feeding schedule Telemetry monitoring Maintain normothermia with Tylenol and cooling blanket Abx as per PMD Maintain normoglycemia with ISS SBP<140 Continue Keppra 1000 mg BID - Ativan 1mg PRN for seizure Replete/ Replace lytes Nutrition consult ordered Chey Long N.P. Mar 29, 2019 23:43
[2019-03-30] VITALS: BP 101/69
[2019-03-30] MEDS: Vancomycin 500mg/D5W 110ml IVPB SCH ×4 (02:30→14:39)
[2019-03-30 04:00] VITALS: BP_SYST 113; BP_SYST 148; BP_DIAS 106; BP_DIAS 73
[2019-03-30] MEDS: Acetaminophen 650mg/20.3ml GT PRN ×2 (05:12→16:49)
[2019-03-30] MEDS: Piperacillin/Tazobactam 3.375 GM in NS 110 ML IVPB SCH ×3 (05:13→21:26)
[2019-03-30 08:00] VITALS: BP 109/76
[2019-03-30] MEDS: Metoprolol Tartrate 50mg tab GT SCH ×2 (08:53→08:55)
[2019-03-30] MEDS: levETIRAcetam 500mg/5ml Liquid ORAL SCH ×2 (08:55→20:15)
[2019-03-30] MEDS: Miralax 17gm pkt NG SCH (09:00)
[2019-03-30] MEDS: Docusate 100mg/10ml Liq GT SCH ×3 (09:00→18:00)
--- NOTE | 2019-03-30 09:57 | GI Initial Consult Note ---
History of Present Illness General Date patient seen: Mar 30, 2019 Time patient seen: 09:48 Reason for Hospitalization: Fever Referring physician: Dr. Lenin Howe Reason for Consultation: SBO Present Illness HPI This is an unfortunate 39-year-old male who has a history of seizure and anoxic brain injury. He presents with chief point of fever from the snf. Onset today. Unknown cough or congestion. No nausea no vomiting. History is otherwise from primary care Dr. and snf note. Patient is nonverbal. GI consulted for small bowel obstruction. ROS limited, patient nonverbal at baseline. Patient is G-tube dependent. Patient was seen, awake alert no apparent distress with no active signs or symptoms of nausea vomiting. The abdomen was soft, nontender, nondistended. Abdominal pelvic CT was performed yesterday which noted the presence of a collapsed distal small bowel loops which raised concern for a small bowel obstruction. In addition was noted that there was fluid in the colon which could indicate diarrheal illness. Labs reviewed show hemoglobin 11.9, no leukocytosis, no transaminitis and creatinine 1.4. Unknown history of GI procedures. Home Meds Reported Medications Acetaminophen* (ACETAMINOPHEN 325MG TABLET*) 325 Mg Tablet, 650 MG GT Q6H PRN for For Pain 03/21/19 Thiamine Hcl* (VITAMIN B-1*) 100 Mg Tablet, 100 MG GT DAILY 03/21/19 Sennosides* (SENNOSIDES*) 8.6 Mg Tablet, 17.2 MG GT QHS 03/21/19 Polyethylene Glycol 3350* (MIRALAX*) 17 Gm Powd.pack, 17 GM GT DAILY 03/21/19 Magnesium Hydroxide* (MILK OF MAGNESIA*) 400 Mg/5 Ml Oral.susp, 30 ML GT DAILY PRN for Constipation 03/21/19 Levetiracetam* (LEVETIRACETAM*) 100 Mg/1 Ml Solution, 10 ML GT BID 03/21/19 Ipratropium/Albuterol Sulfate (DuoNeb 0.5-3(2.5)mg/3ml) 3 Ml Ampul.neb, 3 ML HHN Q4HR PRN for Shortness of Breath 03/21/19 Folic Acid* (FOLIC ACID*) 1 Mg Tablet, 1 MG GT DAILY 03/21/19 Docusate Sodium (DOCU LIQUID) 50 Mg/5 Ml Liquid, 100 MG GT TWICE A DAY 03/21/19 Cyanocobalamin (Vitamin B-12)* (VITAMIN B-12*) 500 Mcg Tablet, 1000 MCG GT DAILY 03/21/19 Donepezil Hcl* (DONEPEZIL HCL*) 10 Mg Tab.rapdis, 10 MG GT DAILY 03/21/19 Enoxaparin* (LOVENOX*) 40 Mg/0.4 Ml Inj, 40 MG SUBQ DAILY 03/21/19 Bisacodyl (BISACODYL) 10 Mg Supp.rect, 10 MG RC Q24HR PRN for Constipation, SUPP 03/21/19 Med list reviewed/reconciled: Yes Allergies: Coded Allergies: No Known Allergies (Unverified , 08/20/18) Patient History Limited by: medical condition History Provided By: Medical Record [facility] Narrative Past Medical History: see triage record, old chart reviewed Nursing Documentation-[facility] Hx Cardiac Problems: No Hx Cancer: No Hx Gastrointestinal Problems: Yes Hx Neurological Problems: No Hx Cerebrovascular Accident: No Social History: Denies: smoking, alcohol use, drug use, other Review of Systems All Other Systems: limited Physical Exam Vital Signs Date Time Temp Pulse Resp B/P (MAP) Pulse Ox O2 Delivery O2 Flow Rate FiO2 03/26/19 08:00 98.9 99 22 134/90 (105) 97 03/26/19 09:00 Room Air 03/26/19 09:53 21 Sp02 EP Interpretation: reviewed, normal General Appearance: well appearing, no apparent distress, alert, thin Head: normocephalic EENT: PERRL/EOMI, normal ENT inspection Neck: supple Respiratory: normal breath sounds, no respiratory distress Cardiovascular: normal rate Gastrointestinal: normal inspection, non tender, soft, normal bowel sounds, non -distended Rectal: deferred Genitourinary: deferred Musculoskeletal: normal inspection, back normal Skin: normal inspection, normal color, no rash, warm/dry, palpation normal, well hydrated Lymphatic: normal inspection, no adenopathy Current Medications Current Medications Medications (Trade) Dose Ordered Sig/Yohannes Route PRN Reason Start Time Stop Time Status Last Admin Dose Admin Acetaminophen (Tylenol) 650 mg Q6H PRN GT Mild Pain/Temp > 100.5 03/23/19 19:00 04/20/19 18:59 03/30/19 05:12 Barium Sulfate (Readi-Cat 2) 450 ml NOW PRN ORAL Radiology Procedure 03/28/19 17:45 03/30/19 17:37 Barium Sulfate (Readi-Cat 2) 450 ml NOW PRN ORAL Radiology Procedure 03/29/19 09:30 03/31/19 09:20 Bisacodyl (Dulcolax) 10 mg DAILY PRN RECTAL Constipation 03/23/19 19:00 04/22/19 18:59 Docusate Sodium (Colace) 100 mg TID GT 03/24/19 09:00 04/23/19 08:59 03/29/19 09:26 Iopamidol (Isovue-300 100ml) 100 ml NOW PRN INJ Radiology Procedure 03/28/19 17:45 03/30/19 17:44 Lansoprazole (Prevacid) 30 mg DAILY GT 03/27/19 15:15 04/26/19 15:14 03/30/19 08:55 Levetiracetam (Keppra) 1,000 mg Q12HR ORAL 03/23/19 21:00 04/20/19 08:59 03/30/19 08:55 Metoprolol Tartrate (Lopressor) 50 mg Q12HR GT 03/29/19 21:00 04/26/19 20:59 03/30/19 08:55 Piperacillin Sod/ Tazobactam Sod 3.375 gm/Sodium Chloride 110 ml @ 27.5 mls/hr EVERY 8 HOURS IVPB 03/28/19 22:00 04/02/19 21:59 03/30/19 05:13 Polyethylene Glycol (Miralax) 17 gm DAILY NG 03/24/19 09:00 04/20/19 08:59 03/29/19 09:26 Sennosides (Senokot) 17.2 mg BEDTIME GT 03/23/19 21:00 04/20/19 20:59 03/28/19 21:16 Sodium Chloride 1,000 ml @ 75 mls/hr [id number] IV 03/27/19 15:00 04/26/19 14:59 03/29/19 21:03 Vancomycin HCl (Vanco rx to dose) 1 ea DAILY PRN MISC Per rx protocol 03/29/19 13:30 04/28/19 13:29 Vancomycin HCl 500 mg/Dextrose 110 ml @ 110 mls/hr Q12HR@0200,1400 IVPB 03/30/19 02:00 04/04/19 01:59 03/30/19 02:30 GI: Plan Problems: (1) Diarrhea (2) SBO (small bowel obstruction) (3) Dehydration (4) Anoxic brain injury Plan anemia work up reviewed Maintain n.p.o. 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 Ospina. Thank you for this patient referral, we will follow. The patient was seen and examined at bedside and all new and available data was reviewed in the patients chart. I agree with the above findings, impression and plan. (Patient seen earlier today. Signature stamp does not reflect patient encounter time.). - MD Amada SimeonConchita-Bassem CAROL Mar 30, 2019 09:57
[2019-03-30 12:00] VITALS: BP 106/70
--- NOTE | 2019-03-30 12:34 | Diagnostic Imaging Report ---
Indication: Abdominal pain Comparison: None Single view of the abdomen obtained Findings: Bowel gas pattern is nonspecific. Gastrostomy noted. No mass, ectopic calcifications, or abnormal gas collections are identified. The bones are unremarkable. Impression: No acute findings
--- NOTE | 2019-03-30 12:50 | Infectious Diseases Prog Note ---
Assessment/Plan Assessment/Plan IMPRESSION: 1. Fever 2. Leukocytosis resolved 3. Tachycardia. 4. He has anoxic encephalopathy. 5. MRSA colonization. 6. Hypernatremia and azotemia. 7. Seizure disorder. 8. Hypertension. 9. Small bowel obstruction versus enteritis 10. Diarrhea RECOMMENDATION: will f/u cultures continue Zosyn & IV Vancomycin will f/u CT scan of abdomen & pelvis Subjective ROS Limited/Unobtainable: Yes Constitutional: Reports: fever, other - Znoy=394.7 Gastrointestinal/Abdominal: Reports: diarrhea Allergies: Coded Allergies: No Known Allergies (Unverified , 08/20/18) Objective Vital Signs Last 24 Hour Vital Signs Date Time Temp Pulse Resp B/P (MAP) Pulse Ox O2 Delivery O2 Flow Rate FiO2 03/30/19 12:00 98.1 72 19 106/70 (82) 99 03/30/19 09:00 Room Air 03/30/19 08:55 106 109/76 03/30/19 08:53 106 109/76 03/30/19 08:00 98.7 106 19 109/76 (87) 95 03/30/19 05:42 100.7 03/30/19 04:00 100.9 116 18 113/73 (86) 96 03/30/19 00:00 113 18 101/69 (80) 98 03/29/19 21:02 133 127/81 03/29/19 21:00 Room Air 03/29/19 20:00 101.7 133 19 121/86 (98) 97 03/29/19 16:00 99.0 128 20 136/88 (104) 98 Height (Feet): 5 Height (Inches): 7.00 Weight (Pounds): 111 General Appearance: no acute distress HEENT: mucous membranes moist Respiratory/Chest: lungs clear Cardiovascular: normal rate Abdomen: soft, non tender, other - GT feeding Extremities: no edema Neurologic/Psychiatric: aphasia Microbiology Date/Time Source Procedure Growth Status 03/27/19 13:45 Indwelling Cath Urine Culture - Final NO GROWTH AFTER 48 HOURS Complete Current Medications Medications (Trade) Dose Ordered Sig/Yohannes Route PRN Reason Start Time Stop Time Status Last Admin Dose Admin Acetaminophen (Tylenol) 650 mg Q6H PRN GT Mild Pain/Temp > 100.5 03/23/19 19:00 04/20/19 18:59 03/30/19 05:12 Barium Sulfate (Readi-Cat 2) 450 ml NOW PRN ORAL Radiology Procedure 03/28/19 17:45 03/30/19 17:37 Barium Sulfate (Readi-Cat 2) 450 ml NOW PRN ORAL Radiology Procedure 03/29/19 09:30 03/31/19 09:20 Bisacodyl (Dulcolax) 10 mg DAILY PRN RECTAL Constipation 03/23/19 19:00 04/22/19 18:59 Docusate Sodium (Colace) 100 mg TID GT 03/24/19 09:00 04/23/19 08:59 03/29/19 09:26 Iopamidol (Isovue-300 100ml) 100 ml NOW PRN INJ Radiology Procedure 03/28/19 17:45 03/30/19 17:44 Lansoprazole (Prevacid) 30 mg DAILY GT 03/27/19 15:15 04/26/19 15:14 03/30/19 08:55 Levetiracetam (Keppra) 1,000 mg Q12HR ORAL 03/23/19 21:00 04/20/19 08:59 03/30/19 08:55 Metoprolol Tartrate (Lopressor) 50 mg Q12HR GT 03/29/19 21:00 04/26/19 20:59 03/30/19 08:55 Piperacillin Sod/ Tazobactam Sod 3.375 gm/Sodium Chloride 110 ml @ 27.5 mls/hr EVERY 8 HOURS IVPB 03/28/19 22:00 04/02/19 21:59 03/30/19 05:13 Polyethylene Glycol (Miralax) 17 gm DAILY NG 03/24/19 09:00 04/20/19 08:59 03/29/19 09:26 Sennosides (Senokot) 17.2 mg BEDTIME GT 03/23/19 21:00 04/20/19 20:59 03/28/19 21:16 Sodium Chloride 1,000 ml @ 75 mls/hr [id number] IV 03/27/19 15:00 04/26/19 14:59 03/30/19 10:18 Vancomycin HCl (Vanco rx to dose) 1 ea DAILY PRN MISC Per rx protocol 03/29/19 13:30 04/28/19 13:29 Vancomycin HCl 500 mg/Dextrose 110 ml @ 110 mls/hr Q12HR@0200,1400 IVPB 03/30/19 02:00 04/04/19 01:59 03/30/19 02:30 Yash Shay MD Mar 30, 2019 12:50
--- NOTE | 2019-03-30 14:09 | Cardiac Electrophysiology PN ---
Assessment/Plan Assessment/Plan 1. Sinus tachycardia due to fever and severe dehydration. Better with iv fluids Continue Metoprolol 50 bid. Echocardiogram EF 60%. 2. Hypertension. Continue Metoprolol 50 mg b.i.d. 3. Sepsis, on IV antibiotic per Dr Shay. CT abdomen pending today 4. Dysphagia, status post percutaneous endoscopic gastrostomy placement. 5. Anoxic brain injury and seizures. MRI brain negative for any acute findings 6. Acute renal failure and dehydration Cr 2.2 7. Possible SBO by CT abdomen. FU Dr Ospina. DW RN Subjective Subjective Nonverbal but alert. Had CT abdomen yesterday Objective Last 24 Hour Vital Signs Date Time Temp Pulse Resp B/P (MAP) Pulse Ox O2 Delivery O2 Flow Rate FiO2 03/30/19 12:00 98.1 72 19 106/70 (82) 99 03/30/19 09:00 Room Air 03/30/19 08:55 106 109/76 03/30/19 08:53 106 109/76 03/30/19 08:00 98.7 106 19 109/76 (87) 95 03/30/19 05:42 100.7 03/30/19 04:00 100.9 116 18 113/73 (86) 96 03/30/19 00:00 113 18 101/69 (80) 98 03/29/19 21:02 133 127/81 03/29/19 21:00 Room Air 03/29/19 20:00 101.7 133 19 121/86 (98) 97 03/29/19 16:00 99.0 128 20 136/88 (104) 98 Intake and Output 03/29/19 03/30/19 19:00 07:00 Intake Total 972.500 ml 1482.5 ml Output Total 200 ml 200 ml Balance 772.500 ml 1282.5 ml Free Water 200 ml IV Total 942.500 ml 922.5 ml Tube Feeding 30 ml 360 ml Output Urine Total 200 ml 200 ml # Voids 2 # Bowel Movements 1 2 Objective HEAD AND NECK: No JVD. Old tracheostomy site closed. LUNGS: Coarse rhonchi. CARDIOVASCULAR: Tachy S1 and S2 with no gallop. ABDOMEN: Soft, status post G-tube. EXTREMITIES: No pitting edema. Jim Manjarrez MD Mar 30, 2019 14:09
--- NOTE | 2019-03-30 14:44 | Nephrology Progress Note ---
Assessment/Plan Problem List: (1) Acute renal failure (2) Acute prerenal azotemia Assessment: dehydration (3) Dehydration (4) Seizure disorder (5) Anoxic brain injury (6) Sepsis (7) Hypercalcemia Assessment Renal failure: Dehydration Hypernatremia, Free water deficit Sepsis Acute metabolic encephalopathy PEG Sz disorder HTN Plan lowering Cr High Vanco level , now lowering One dose Aredia for high Ca Check Vanco level in am- Vanco on hold now increase IV fluids / Albumin bolus as needed GT feeding NS IV Fluids Coreg GT change to lopressor monitor electrolytes per orders Subjective ROS Limited/Unobtainable: Yes Constitutional: Reports: malaise Objective Objective Last 24 Hour Vital Signs Date Time Temp Pulse Resp B/P (MAP) Pulse Ox O2 Delivery O2 Flow Rate FiO2 03/30/19 12:00 98.1 72 19 106/70 (82) 99 03/30/19 09:00 Room Air 03/30/19 08:55 106 109/76 03/30/19 08:53 106 109/76 03/30/19 08:00 98.7 106 19 109/76 (87) 95 03/30/19 05:42 100.7 03/30/19 04:00 100.9 116 18 113/73 (86) 96 03/30/19 00:00 113 18 101/69 (80) 98 03/29/19 21:02 133 127/81 03/29/19 21:00 Room Air 03/29/19 20:00 101.7 133 19 121/86 (98) 97 03/29/19 16:00 99.0 128 20 136/88 (104) 98 Intake and Output 03/29/19 03/30/19 19:00 07:00 Intake Total 972.500 ml 1482.5 ml Output Total 200 ml 200 ml Balance 772.500 ml 1282.5 ml Free Water 200 ml IV Total 942.500 ml 922.5 ml Tube Feeding 30 ml 360 ml Output Urine Total 200 ml 200 ml # Voids 2 # Bowel Movements 1 2 Current Medications Medications (Trade) Dose Ordered Sig/Yohannes Route PRN Reason Start Time Stop Time Status Last Admin Dose Admin Acetaminophen (Tylenol) 650 mg Q6H PRN GT Mild Pain/Temp > 100.5 03/23/19 19:00 04/20/19 18:59 03/30/19 05:12 Barium Sulfate (Readi-Cat 2) 450 ml NOW PRN ORAL Radiology Procedure 03/28/19 17:45 03/30/19 17:37 Barium Sulfate (Readi-Cat 2) 450 ml NOW PRN ORAL Radiology Procedure 03/29/19 09:30 03/31/19 09:20 Bisacodyl (Dulcolax) 10 mg DAILY PRN RECTAL Constipation 03/23/19 19:00 04/22/19 18:59 Docusate Sodium (Colace) 100 mg TID GT 03/24/19 09:00 04/23/19 08:59 03/29/19 09:26 Iopamidol (Isovue-300 100ml) 100 ml NOW PRN INJ Radiology Procedure 03/28/19 17:45 03/30/19 17:44 Lansoprazole (Prevacid) 30 mg DAILY GT 03/27/19 15:15 04/26/19 15:14 03/30/19 08:55 Levetiracetam (Keppra) 1,000 mg Q12HR ORAL 03/23/19 21:00 04/20/19 08:59 03/30/19 08:55 Metoprolol Tartrate (Lopressor) 50 mg Q12HR GT 03/29/19 21:00 04/26/19 20:59 03/30/19 08:55 Piperacillin Sod/ Tazobactam Sod 3.375 gm/Sodium Chloride 110 ml @ 27.5 mls/hr EVERY 8 HOURS IVPB 03/28/19 22:00 04/02/19 21:59 03/30/19 05:13 Polyethylene Glycol (Miralax) 17 gm DAILY NG 03/24/19 09:00 04/20/19 08:59 03/29/19 09:26 Sennosides (Senokot) 17.2 mg BEDTIME GT 03/23/19 21:00 04/20/19 20:59 03/28/19 21:16 Sodium Chloride 1,000 ml @ 75 mls/hr [id number] IV 03/27/19 15:00 04/26/19 14:59 03/30/19 10:18 Vancomycin HCl (Vanco rx to dose) 1 ea DAILY PRN MISC Per rx protocol 03/29/19 13:30 04/28/19 13:29 Vancomycin HCl 500 mg/Dextrose 110 ml @ 110 mls/hr Q12HR@0200,1400 IVPB 03/30/19 02:00 04/04/19 01:59 03/30/19 14:39 Height (Feet): 5 Height (Inches): 7.00 Weight (Pounds): 111 General Appearance: no apparent distress Objective no change Janes Barros MD Mar 30, 2019 14:44
[2019-03-30 16:00] VITALS: BP 98/69
[2019-03-30 20:00] VITALS: BP 102/71
[2019-03-30] MEDS: Sennosides 8.6mg tab GT SCH (20:16)
--- NOTE | 2019-03-30 21:19 | General Progress Note ---
Assessment/Plan Problem List: (1) Schizoaffective disorder ICD Codes: F25.9 - Schizoaffective disorder, unspecified SNOMED: 56662488 (2) Seizure disorder ICD Codes: G40.909 - Epilepsy, unspecified, not intractable, without status epilepticus SNOMED: 058972658 (3) Dehydration ICD Codes: E86.0 - Dehydration SNOMED: 36349768, 454960778 (4) Sepsis ICD Codes: A41.9 - Sepsis, unspecified organism SNOMED: 33116895, 801467887 Qualifiers: Qualified Codes: A41.9 - Sepsis, unspecified organism (5) Acute metabolic encephalopathy ICD Codes: G93.41 - Metabolic encephalopathy SNOMED: 97513081, 667932029 Status: stable, progressing, unchanged, fever Assessment/Plan: sbo? consulted dr reyna and dr mcbride afebrile sepsis arf improved poor historian reviewed chart and labs Subjective ROS Limited/Unobtainable: Yes Allergies: Coded Allergies: No Known Allergies (Unverified , 08/20/18) Objective Last 24 Hour Vital Signs Date Time Temp Pulse Resp B/P (MAP) Pulse Ox O2 Delivery O2 Flow Rate FiO2 03/30/19 16:00 98.1 112 19 98/69 (79) 95 03/30/19 12:00 98.1 72 19 106/70 (82) 99 03/30/19 09:00 Room Air 03/30/19 08:55 106 109/76 03/30/19 08:53 106 109/76 03/30/19 08:00 98.7 106 19 109/76 (87) 95 03/30/19 05:42 100.7 03/30/19 04:00 100.9 116 18 113/73 (86) 96 03/30/19 00:00 113 18 101/69 (80) 98 Intake and Output 03/29/19 03/30/19 18:59 06:59 Intake Total 1017.500 ml 1482.5 ml Output Total 200 ml 200 ml Balance 817.500 ml 1282.5 ml Free Water 200 ml IV Total 1017.500 ml 922.5 ml Tube Feeding 360 ml Output Urine Total 200 ml 200 ml # Voids 2 # Bowel Movements 1 2 Height (Feet): 5 Height (Inches): 7.00 Weight (Pounds): 111 Respiratory/Chest: lungs clear Abdomen: tender Lenin Wyatt MD Mar 30, 2019 21:19
--- NOTE | 2019-03-30 23:47 | Neurology Progress Note ---
Interim History Interim History ROS Limited/Unobtainable: Yes Complaints: AMS Events: This visit was performed on March 30, [address] Jin Interim History Fever and Tachycardia continue but no observed seizures or diminished LOC Objective Physical Exam Last Vital Signs Date Time Temp Pulse Resp B/P (MAP) Pulse Ox O2 Delivery O2 Flow Rate FiO2 03/30/19 16:00 98.1 112 19 98/69 (79) 95 03/30/19 09:00 Room Air 03/27/19 08:06 21 General: well developed, well nourished Head: normocophalic Neck: other EENT: benign, other Neurologic Exam Mental Status: other Speech: other Language: other Cranial Nerve II: fundus normal, visual roberts, no papilledema, other Cranial Nerves III, IV, : PERRLA, EOMI, other Cranial Nerve V: other Cranial Nerve VII: other Cranial Nerve VIII: other Cranial Nerve IX: other Cranial Nerve X: other Cranial Nerve XI: other Cranial Nerve XII: other Motor System: other Sensory: other Coordination: other - Patient has tracheostomy scar at throat, is tracking intermittently with his eyes, he doesn't follow commands, has rigid tone and spasticity in all extremities and triple flexes in LEs bilaterally with mild decerebrate posturing in UEs on noxious stim. Objective Patient has tracheostomy scar at throat, is tracking intermittently with his eyes, he doesn't follow commands, has rigid tone and spasticity in all extremities and triple flexes in LEs bilaterally with mild decerebrate posturing in UEs on noxious stim. He has nystagmus on gaze at rest bilaterally - He is much more alert still with fever now. Impression/Recommendations Problems: (1) Seizure disorder (2) Anoxic brain injury (3) Sepsis (4) Acute hypernatremia (5) Dehydration (6) Encephalopathy due to metabolic factor or toxin (7) Acute metabolic encephalopathy Assessment & Plan: Cultures Pending / WBCs downtrending but still febrile (8) Weakness generalized (9) Schizoaffective disorder Status: stable, fever Recommendations Q4 Hour obs Na 135-145---> Consider increasing amount of water flushes to PEG feeding schedule Telemetry monitoring Maintain normothermia with Tylenol and cooling blanket Abx as per ID Maintain normoglycemia with ISS SBP<140 Continue Keppra 1000 mg BID - Ativan 1mg PRN for seizure Replete/ Replace Chey Copeland N.P. Mar 30, 2019 23:47
[2019-03-31] VITALS: BP 102/70
[2019-03-31] MEDS: Vancomycin 500mg/D5W 110ml IVPB SCH ×6 (02:45→18:30)
[2019-03-31 04:00] VITALS: BP 109/75
[2019-03-31] MEDS: Piperacillin/Tazobactam 3.375 GM in NS 110 ML IVPB SCH ×3 (05:27→21:44)
[2019-03-31 05:42] LABS: BASOPHILS % (AUTO) 0.6 % (0.0-2.0); EOSINOPHILS % (AUTO) 3.4 % (0.0-3.0); HEMATOCRIT 33.2 % (42.0-52.0); HEMOGLOBIN 11.1 G/DL (14.2-18.0); LYMPHOCYTES % (AUTO) 23.3 % (20.0-45.0); MEAN CORPUSCULAR VOLUME 89 FL (80-99); MONOCYTES % (AUTO) 5.4 % (1.0-10.0); NEUTROPHILS % (AUTO) 67.3 % (45.0-75.0); PLATELET COUNT 452 K/UL (150-450); RED BLOOD COUNT 3.72 M/UL (4.70-6.10); WHITE BLOOD COUNT 9.9 K/UL (4.8-10.8)
[2019-03-31 06:02] LABS: ALANINE AMINOTRANSFERASE 31 U/L (12-78); ALBUMIN 2.3 G/DL (3.4-5.0); ALBUMIN/GLOBULIN RATIO 0.5 (1.0-2.7); ALKALINE PHOSPHATASE 87 U/L (46-116); ANION GAP 10 mmol/L (5-15); ASPARTATE AMINO TRANSFERASE 22 U/L (15-37); BILIRUBIN,TOTAL 0.2 MG/DL (0.2-1.0); BLOOD UREA NITROGEN 15 mg/dL (7-18); CALCIUM 8.4 MG/DL (8.5-10.1); CARBON DIOXIDE 23 MMOL/L (21-32); CHLORIDE 114 MMOL/L (98-107); PHOSPHORUS 2.4 MG/DL (2.5-4.9); POTASSIUM 3.5 MMOL/L (3.5-5.1); SODIUM 146 MMOL/L (136-145)
--- NOTE | 2019-03-31 07:51 | Cardiology Progress Note ---
Assessment/Plan Status: stable Assessment/Plan Assessment/Plan Assessment/Plan 1. Sinus tachycardia due to fever and severe dehydration. Better with iv fluids Continue Metoprolol 50 bid. Echocardiogram EF 60%. 2. Hypertension. Controlled Continue Metoprolol 50 mg b.i.d. 3. Sepsis, on IV antibiotic per Dr Shay. CT abdomen small bowel obstruction 4. Dysphagia, status post percutaneous endoscopic gastrostomy placement. 5. Anoxic brain injury and seizures. MRI brain negative for any acute findings 6. Acute renal failure and dehydration Per nephrology Subjective Cardiovascular: Reports: no symptoms Respiratory: Reports: no symptoms Gastrointestinal/Abdominal: Reports: no symptoms Genitourinary: Reports: no symptoms Subjective [employer] Tachycardic, no fevers, hypernatremic today Objective Last 24 Hour Vital Signs Date Time Temp Pulse Resp B/P (MAP) Pulse Ox O2 Delivery O2 Flow Rate FiO2 03/31/19 04:00 99.2 107 20 109/75 (86) 96 03/31/19 00:00 99.2 102 20 102/70 (81) 96 03/30/19 21:00 Room Air 03/30/19 20:00 99.5 106 20 102/71 (81) 95 03/30/19 16:00 98.1 112 19 98/69 (79) 95 03/30/19 12:00 98.1 72 19 106/70 (82) 99 03/30/19 09:00 Room Air 03/30/19 08:55 106 109/76 03/30/19 08:53 106 109/76 03/30/19 08:00 98.7 106 19 109/76 (87) 95 General Appearance: no apparent distress, alert EENT: PERRL/EOMI, normal ENT inspection, TMs normal, pharynx normal Neck: non-tender, supple, normal inspection, no JVD Rhythm: ST Cardiovascular: normal peripheral pulses, normal rate, tachycardia Respiratory/Chest: chest wall non-tender, lungs clear, normal breath sounds, no respiratory distress, no accessory muscle use Abdomen: normal bowel sounds, non tender, soft Extremities: normal range of motion, non-tender, normal inspection, no calf tenderness, no swelling Neurologic: sleep tech II-XII grossly normal, no motor/sensory deficits Intake and Output 03/30/19 03/31/19 19:00 07:00 Intake Total 1392.5 ml 27.5 ml Output Total 450 ml Balance 1392.5 ml -422.5 ml Free Water 200 ml IV Total 1072.5 ml 27.5 ml Tube Feeding 120 ml Output Urine Total 450 ml # Bowel Movements 4 Laboratory Tests Test 03/31/19 01:05 03/31/19 04:30 Vancomycin Level Trough 10.7 ug/mL (5.0-12.0) White Blood Count 9.9 K/UL (4.8-10.8) Red Blood Count 3.72 M/UL (4.70-6.10) L Hemoglobin 11.1 G/DL (14.2-18.0) L Hematocrit 33.2 % (42.0-52.0) L Mean Corpuscular Volume 89 FL (80-99) Mean Corpuscular Hemoglobin 29.8 PG (27.0-31.0) Mean Corpuscular Hemoglobin Concent 33.4 G/DL (32.0-36.0) Red Cell Distribution Width 12.0 % (11.6-14.8) Platelet Count 452 K/UL (150-450) H Mean Platelet Volume 6.6 FL (6.5-10.1) Neutrophils (%) (Auto) 67.3 % (45.0-75.0) Lymphocytes (%) (Auto) 23.3 % (20.0-45.0) Monocytes (%) (Auto) 5.4 % (1.0-10.0) Eosinophils (%) (Auto) 3.4 % (0.0-3.0) H Basophils (%) (Auto) 0.6 % (0.0-2.0) Sodium Level 146 MMOL/L (136-145) H Potassium Level 3.5 MMOL/L (3.5-5.1) Chloride Level 114 MMOL/L (98-107) H Carbon Dioxide Level 23 MMOL/L (21-32) Anion Gap 10 mmol/L (5-15) Blood Urea Nitrogen 15 mg/dL (7-18) Creatinine 1.0 MG/DL (0.55-1.30) Estimat Glomerular Filtration Rate > 60 mL/min (>60) Glucose Level 101 MG/DL (74-106) Uric Acid 3.1 MG/DL (2.6-7.2) Calcium Level 8.4 MG/DL (8.5-10.1) L Phosphorus Level 2.4 MG/DL (2.5-4.9) L Magnesium Level 2.0 MG/DL (1.8-2.4) Total Bilirubin 0.2 MG/DL (0.2-1.0) Aspartate Amino Transf (AST/SGOT) 22 U/L (15-37) Alanine Aminotransferase (ALT/SGPT) 31 U/L (12-78) Alkaline Phosphatase 87 U/L (46-116) C-Reactive Protein, Quantitative 9.2 mg/dL (0.00-0.90) H Total Protein 6.8 G/DL (6.4-8.2) Albumin 2.3 G/DL (3.4-5.0) L Globulin 4.5 g/dL Albumin/Globulin Ratio 0.5 (1.0-2.7) L Microbiology Date/Time Source Procedure Growth Status 03/29/19 16:30 Blood Blood Culture - Preliminary NO GROWTH AFTER 24 HOURS Resulted 03/29/19 16:15 Blood Blood Culture - Preliminary NO GROWTH AFTER 24 HOURS Resulted Zacarias Werner MD Mar 31, 2019 07:51
[2019-03-31 08:00] VITALS: BP 111/73
[2019-03-31] MEDS: Docusate 100mg/10ml Liq GT SCH ×3 (08:49→18:00)
[2019-03-31] MEDS: Miralax 17gm pkt NG SCH (08:49)
[2019-03-31] MEDS: Metoprolol Tartrate 50mg tab GT SCH ×2 (08:49→21:00)
[2019-03-31] MEDS: levETIRAcetam 500mg/5ml Liquid ORAL SCH ×2 (08:54→21:44)
[2019-03-31] MEDS: Acetaminophen 650mg/20.3ml GT PRN ×2 (08:54→15:38)
[2019-03-31] MEDS ORDERED: Potassium Phosphate 20 MM in NS 275 ML IV SCH (10:00)
--- NOTE | 2019-03-31 10:39 | Nephrology Progress Note ---
Assessment/Plan Problem List: (1) Acute renal failure (2) Acute prerenal azotemia Assessment: dehydration (3) Dehydration (4) Seizure disorder (5) Anoxic brain injury (6) Sepsis (7) Hypercalcemia Assessment Renal failure: Dehydration Hypernatremia, Free water deficit Sepsis Acute metabolic encephalopathy PEG Sz disorder HTN Plan lowering Cr High Vanco level , now lowering One dose Aredia for high Ca- Calcium now in range- Check Vanco level in am- Vanco on hold now increase IV fluids / Albumin bolus as needed GT feeding NS IV Fluids Coreg GT change to lopressor monitor electrolytes per orders Subjective ROS Limited/Unobtainable: Yes Objective Objective Last 24 Hour Vital Signs Date Time Temp Pulse Resp B/P (MAP) Pulse Ox O2 Delivery O2 Flow Rate FiO2 03/31/19 08:49 120 111/73 03/31/19 08:00 100.0 120 22 111/73 (86) 95 03/31/19 04:00 99.2 107 20 109/75 (86) 96 03/31/19 00:00 99.2 102 20 102/70 (81) 96 03/30/19 21:00 Room Air 03/30/19 20:00 99.5 106 20 102/71 (81) 95 03/30/19 16:00 98.1 112 19 98/69 (79) 95 03/30/19 12:00 98.1 72 19 106/70 (82) 99 Intake and Output 03/30/19 03/31/19 19:00 07:00 Intake Total 1392.5 ml 27.5 ml Output Total 450 ml Balance 1392.5 ml -422.5 ml Free Water 200 ml IV Total 1072.5 ml 27.5 ml Tube Feeding 120 ml Output Urine Total 450 ml # Bowel Movements 4 Laboratory Tests 03/31/19 01:05: Vancomycin Level Trough 10.7 03/31/19 04:30: White Blood Count 9.9, Red Blood Count 3.72L, Hemoglobin 11.1L, Hematocrit 33.2L , Mean Corpuscular Volume 89, Mean Corpuscular Hemoglobin 29.8, Mean Corpuscular Hemoglobin Concent 33.4, Red Cell Distribution Width 12.0, Platelet Count 452H, Mean Platelet Volume 6.6, Neutrophils (%) (Auto) 67.3, Lymphocytes ( %) (Auto) 23.3, Monocytes (%) (Auto) 5.4, Eosinophils (%) (Auto) 3.4H, Basophils (%) (Auto) 0.6, Sodium Level 146H, Potassium Level 3.5, Chloride Level 114H, Carbon Dioxide Level 23, Anion Gap 10, Blood Urea Nitrogen 15, Creatinine 1.0, Estimat Glomerular Filtration Rate > 60, Glucose Level 101, Uric Acid 3.1, Calcium Level 8.4L, Phosphorus Level 2.4L, Magnesium Level 2.0, Total Bilirubin 0.2, Aspartate Amino Transf (AST/SGOT) 22, Alanine Aminotransferase (ALT/SGPT) 31, Alkaline Phosphatase 87, C-Reactive Protein, Quantitative 9.2H, Total Protein 6.8, Albumin 2.3L, Globulin 4.5, Albumin/ Globulin Ratio 0.5L Height (Feet): 5 Height (Inches): 7.00 Weight (Pounds): 111 General Appearance: no apparent distress Cardiovascular: tachycardia Respiratory/Chest: decreased breath sounds Abdomen: soft Objective no change Janes Barros MD Mar 31, 2019 10:39
[2019-03-31 12:00] VITALS: BP 103/72
--- NOTE | 2019-03-31 12:32 | General Progress Note ---
Assessment/Plan Problem List: (1) Anemia ICD Codes: D64.9 - Anemia, unspecified SNOMED: 455792346 (2) Dysphagia ICD Codes: R13.10 - Dysphagia, unspecified SNOMED: 10768471, 528149297 (3) Feeding by G-tube ICD Codes: Z93.1 - Gastrostomy status SNOMED: 608569192, 226049193, 737687351 (4) Anoxic brain injury ICD Codes: G93.1 - Anoxic brain damage, not elsewhere classified SNOMED: 444117040 (5) Seizure disorder ICD Codes: G40.909 - Epilepsy, unspecified, not intractable, without status epilepticus SNOMED: 717070999 (6) Schizoaffective disorder ICD Codes: F25.9 - Schizoaffective disorder, unspecified SNOMED: 48561769 Status: stable Assessment/Plan: no SBO per X ray and exam increase GTF as tolerated to 60 cc fu labs Subjective ROS Limited/Unobtainable: No Allergies: Coded Allergies: No Known Allergies (Unverified , 08/20/18) Objective Last 24 Hour Vital Signs Date Time Temp Pulse Resp B/P (MAP) Pulse Ox O2 Delivery O2 Flow Rate FiO2 03/31/19 08:49 120 111/73 03/31/19 08:00 100.0 120 22 111/73 (86) 95 03/31/19 04:00 99.2 107 20 109/75 (86) 96 03/31/19 00:00 99.2 102 20 102/70 (81) 96 03/30/19 21:00 Room Air 03/30/19 20:00 99.5 106 20 102/71 (81) 95 03/30/19 16:00 98.1 112 19 98/69 (79) 95 Intake and Output 03/30/19 03/31/19 19:00 07:00 Intake Total 1392.5 ml 27.5 ml Output Total 450 ml Balance 1392.5 ml -422.5 ml Free Water 200 ml IV Total 1072.5 ml 27.5 ml Tube Feeding 120 ml Output Urine Total 450 ml # Bowel Movements 4 Laboratory Tests 03/31/19 01:05: Vancomycin Level Trough 10.7 03/31/19 04:30: White Blood Count 9.9, Red Blood Count 3.72L, Hemoglobin 11.1L, Hematocrit 33.2L , Mean Corpuscular Volume 89, Mean Corpuscular Hemoglobin 29.8, Mean Corpuscular Hemoglobin Concent 33.4, Red Cell Distribution Width 12.0, Platelet Count 452H, Mean Platelet Volume 6.6, Neutrophils (%) (Auto) 67.3, Lymphocytes ( %) (Auto) 23.3, Monocytes (%) (Auto) 5.4, Eosinophils (%) (Auto) 3.4H, Basophils (%) (Auto) 0.6, Sodium Level 146H, Potassium Level 3.5, Chloride Level 114H, Carbon Dioxide Level 23, Anion Gap 10, Blood Urea Nitrogen 15, Creatinine 1.0, Estimat Glomerular Filtration Rate > 60, Glucose Level 101, Uric Acid 3.1, Calcium Level 8.4L, Phosphorus Level 2.4L, Magnesium Level 2.0, Total Bilirubin 0.2, Aspartate Amino Transf (AST/SGOT) 22, Alanine Aminotransferase (ALT/SGPT) 31, Alkaline Phosphatase 87, C-Reactive Protein, Quantitative 9.2H, Total Protein 6.8, Albumin 2.3L, Globulin 4.5, Albumin/ Globulin Ratio 0.5L Height (Feet): 5 Height (Inches): 7.00 Weight (Pounds): 111 General Appearance: lethargic EENT: normal ENT inspection Neck: supple Cardiovascular: normal rate Respiratory/Chest: decreased breath sounds Abdomen: normal bowel sounds, non tender, soft, hyperactive bowel sounds Extremities: non-tender Ruddy Ospina MD Mar 31, 2019 12:32
[2019-03-31 16:00] VITALS: BP 108/68
--- NOTE | 2019-03-31 16:01 | Infectious Diseases Prog Note ---
Assessment/Plan Assessment/Plan IMPRESSION: 1. Fever improving 2. Leukocytosis resolved 3. Tachycardia. 4. He has anoxic encephalopathy. 5. MRSA colonization. 6. Hypernatremia and azotemia. 7. Seizure disorder. 8. Hypertension. 9. Small bowel obstruction versus enteritis 10. Diarrhea RECOMMENDATION: will f/u cultures continue Zosyn & IV Vancomycin Subjective ROS Limited/Unobtainable: Yes Constitutional: Reports: fever, other - decreasing, T fyp=[id number] Gastrointestinal/Abdominal: Reports: diarrhea, other - watery Allergies: Coded Allergies: No Known Allergies (Unverified , 08/20/18) Objective Vital Signs Last 24 Hour Vital Signs Date Time Temp Pulse Resp B/P (MAP) Pulse Ox O2 Delivery O2 Flow Rate FiO2 03/31/19 12:00 98.3 104 22 103/72 (82) 99 03/31/19 09:00 Room Air 03/31/19 08:49 120 111/73 03/31/19 08:00 100.0 120 22 111/73 (86) 95 03/31/19 04:00 99.2 107 20 109/75 (86) 96 03/31/19 00:00 99.2 102 20 102/70 (81) 96 03/30/19 21:00 Room Air 03/30/19 20:00 99.5 106 20 102/71 (81) 95 03/30/19 16:00 98.1 112 19 98/69 (79) 95 Height (Feet): 5 Height (Inches): 7.00 Weight (Pounds): 111 HEENT: mucous membranes moist Respiratory/Chest: lungs clear Cardiovascular: tachycardia Abdomen: soft, non tender, other - GT feeding Extremities: no edema Neurologic/Psychiatric: alert, aphasia Microbiology Date/Time Source Procedure Growth Status 03/29/19 16:30 Blood Blood Culture - Preliminary NO GROWTH AFTER 24 HOURS Resulted 03/29/19 16:15 Blood Blood Culture - Preliminary NO GROWTH AFTER 24 HOURS Resulted Laboratory Tests Test 03/31/19 01:05 03/31/19 04:30 Vancomycin Level Trough 10.7 ug/mL (5.0-12.0) White Blood Count 9.9 K/UL (4.8-10.8) Red Blood Count 3.72 M/UL (4.70-6.10) L Hemoglobin 11.1 G/DL (14.2-18.0) L Hematocrit 33.2 % (42.0-52.0) L Mean Corpuscular Volume 89 FL (80-99) Mean Corpuscular Hemoglobin 29.8 PG (27.0-31.0) Mean Corpuscular Hemoglobin Concent 33.4 G/DL (32.0-36.0) Red Cell Distribution Width 12.0 % (11.6-14.8) Platelet Count 452 K/UL (150-450) H Mean Platelet Volume 6.6 FL (6.5-10.1) Neutrophils (%) (Auto) 67.3 % (45.0-75.0) Lymphocytes (%) (Auto) 23.3 % (20.0-45.0) Monocytes (%) (Auto) 5.4 % (1.0-10.0) Eosinophils (%) (Auto) 3.4 % (0.0-3.0) H Basophils (%) (Auto) 0.6 % (0.0-2.0) Sodium Level 146 MMOL/L (136-145) H Potassium Level 3.5 MMOL/L (3.5-5.1) Chloride Level 114 MMOL/L (98-107) H Carbon Dioxide Level 23 MMOL/L (21-32) Anion Gap 10 mmol/L (5-15) Blood Urea Nitrogen 15 mg/dL (7-18) Creatinine 1.0 MG/DL (0.55-1.30) Estimat Glomerular Filtration Rate > 60 mL/min (>60) Glucose Level 101 MG/DL (74-106) Uric Acid 3.1 MG/DL (2.6-7.2) Calcium Level 8.4 MG/DL (8.5-10.1) L Phosphorus Level 2.4 MG/DL (2.5-4.9) L Magnesium Level 2.0 MG/DL (1.8-2.4) Total Bilirubin 0.2 MG/DL (0.2-1.0) Aspartate Amino Transf (AST/SGOT) 22 U/L (15-37) Alanine Aminotransferase (ALT/SGPT) 31 U/L (12-78) Alkaline Phosphatase 87 U/L (46-116) C-Reactive Protein, Quantitative 9.2 mg/dL (0.00-0.90) H Total Protein 6.8 G/DL (6.4-8.2) Albumin 2.3 G/DL (3.4-5.0) L Globulin 4.5 g/dL Albumin/Globulin Ratio 0.5 (1.0-2.7) L Current Medications Medications (Trade) Dose Ordered Sig/Yohannes Route PRN Reason Start Time Stop Time Status Last Admin Dose Admin Acetaminophen (Tylenol) 650 mg Q6H PRN GT Mild Pain/Temp > 100.5 03/23/19 19:00 04/20/19 18:59 03/31/19 15:38 Bisacodyl (Dulcolax) 10 mg DAILY PRN RECTAL Constipation 03/23/19 19:00 04/22/19 18:59 Docusate Sodium (Colace) 100 mg TID GT 03/24/19 09:00 04/23/19 08:59 03/29/19 09:26 Lansoprazole (Prevacid) 30 mg DAILY GT 03/27/19 15:15 04/26/19 15:14 03/31/19 08:49 Levetiracetam (Keppra) 1,000 mg Q12HR ORAL 03/23/19 21:00 04/20/19 08:59 03/31/19 08:54 Metoprolol Tartrate (Lopressor) 50 mg Q12HR GT 03/29/19 21:00 04/26/19 20:59 03/31/19 08:49 Piperacillin Sod/ Tazobactam Sod 3.375 gm/Sodium Chloride 110 ml @ 27.5 mls/hr EVERY 8 HOURS IVPB 03/28/19 22:00 04/02/19 21:59 03/31/19 14:33 Polyethylene Glycol (Miralax) 17 gm DAILY NG 03/24/19 09:00 04/20/19 08:59 03/29/19 09:26 Potassium Phosphate 20 mm/ Sodium Chloride 281.6667 ml @ 46.944 m... ONCE IV 03/31/19 10:00 03/31/19 16:00 03/31/19 12:58 Sennosides (Senokot) 17.2 mg BEDTIME GT 03/23/19 21:00 04/20/19 20:59 03/28/19 21:16 Sodium Chloride 1,000 ml @ 75 mls/hr [id number] IV 03/27/19 15:00 04/26/19 14:59 03/31/19 12:58 Vancomycin HCl (Vanco rx to dose) 1 ea DAILY PRN MISC Per rx protocol 03/29/19 13:30 04/28/19 13:29 Vancomycin HCl 500 mg/Dextrose 110 ml @ 110 mls/hr Q8H IVPB 03/31/19 10:00 04/05/19 09:59 03/31/19 10:00 Yash Shay MD Mar 31, 2019 16:01
[2019-03-31 20:00] VITALS: BP 108/68
[2019-03-31] MEDS: Sennosides 8.6mg tab GT SCH (21:00)
--- NOTE | 2019-03-31 21:34 | General Progress Note ---
Assessment/Plan Problem List: (1) Schizoaffective disorder ICD Codes: F25.9 - Schizoaffective disorder, unspecified SNOMED: 69894452 (2) Seizure disorder ICD Codes: G40.909 - Epilepsy, unspecified, not intractable, without status epilepticus SNOMED: 803278984 (3) Dehydration ICD Codes: E86.0 - Dehydration SNOMED: 09682131, 274495591 (4) Sepsis ICD Codes: A41.9 - Sepsis, unspecified organism SNOMED: 48690765, 273451852 Qualifiers: Qualified Codes: A41.9 - Sepsis, unspecified organism (5) Acute metabolic encephalopathy ICD Codes: G93.41 - Metabolic encephalopathy SNOMED: 14464159, 578844522 Status: stable Assessment/Plan: afebrile sepsis arf improved weak no siezure dehydration improving reviewed chart and labs Subjective ROS Limited/Unobtainable: Yes Allergies: Coded Allergies: No Known Allergies (Unverified , 08/20/18) Objective Last 24 Hour Vital Signs Date Time Temp Pulse Resp B/P (MAP) Pulse Ox O2 Delivery O2 Flow Rate FiO2 03/31/19 16:00 99.2 104 19 108/68 (81) 96 03/31/19 12:00 98.3 104 22 103/72 (82) 99 03/31/19 09:00 Room Air 03/31/19 08:49 120 111/73 03/31/19 08:00 100.0 120 22 111/73 (86) 95 03/31/19 04:00 99.2 107 20 109/75 (86) 96 03/31/19 00:00 99.2 102 20 102/70 (81) 96 Intake and Output 03/30/19 03/31/19 18:59 06:59 Intake Total 1422.5 ml 55.0 ml Output Total 450 ml Balance 1422.5 ml -395.0 ml Free Water 200 ml IV Total 1072.5 ml 55.0 ml Tube Feeding 150 ml Output Urine Total 450 ml # Bowel Movements 4 Laboratory Tests 03/31/19 01:05: Vancomycin Level Trough 10.7 03/31/19 04:30: White Blood Count 9.9, Red Blood Count 3.72L, Hemoglobin 11.1L, Hematocrit 33.2L , Mean Corpuscular Volume 89, Mean Corpuscular Hemoglobin 29.8, Mean Corpuscular Hemoglobin Concent 33.4, Red Cell Distribution Width 12.0, Platelet Count 452H, Mean Platelet Volume 6.6, Neutrophils (%) (Auto) 67.3, Lymphocytes ( %) (Auto) 23.3, Monocytes (%) (Auto) 5.4, Eosinophils (%) (Auto) 3.4H, Basophils (%) (Auto) 0.6, Sodium Level 146H, Potassium Level 3.5, Chloride Level 114H, Carbon Dioxide Level 23, Anion Gap 10, Blood Urea Nitrogen 15, Creatinine 1.0, Estimat Glomerular Filtration Rate > 60, Glucose Level 101, Uric Acid 3.1, Calcium Level 8.4L, Phosphorus Level 2.4L, Magnesium Level 2.0, Total Bilirubin 0.2, Aspartate Amino Transf (AST/SGOT) 22, Alanine Aminotransferase (ALT/SGPT) 31, Alkaline Phosphatase 87, C-Reactive Protein, Quantitative 9.2H, Total Protein 6.8, Albumin 2.3L, Globulin 4.5, Albumin/ Globulin Ratio 0.5L Height (Feet): 5 Height (Inches): 7.00 Weight (Pounds): 111 Neck: supple Cardiovascular: normal rate Respiratory/Chest: lungs clear Abdomen: soft Lenin Wyatt MD Mar 31, 2019 21:34
--- NOTE | 2019-03-31 23:38 | Neurology Progress Note ---
Interim History Interim History ROS Limited/Unobtainable: Yes Complaints: AMS Events: This visit was performed on March 31, [address] Jin Interim History Patient continues to be febrile but neurologically stable. Objective Physical Exam Last Vital Signs Date Time Temp Pulse Resp B/P (MAP) Pulse Ox O2 Delivery O2 Flow Rate FiO2 03/31/19 21:00 109 106/56 03/31/19 21:00 Room Air 03/31/19 20:00 99.7 19 96 03/27/19 08:06 21 Laboratory Tests Test 03/31/19 01:05 03/31/19 04:30 Vancomycin Level Trough 10.7 ug/mL (5.0-12.0) White Blood Count 9.9 K/UL (4.8-10.8) Red Blood Count 3.72 M/UL (4.70-6.10) L Hemoglobin 11.1 G/DL (14.2-18.0) L Hematocrit 33.2 % (42.0-52.0) L Mean Corpuscular Volume 89 FL (80-99) Mean Corpuscular Hemoglobin 29.8 PG (27.0-31.0) Mean Corpuscular Hemoglobin Concent 33.4 G/DL (32.0-36.0) Red Cell Distribution Width 12.0 % (11.6-14.8) Platelet Count 452 K/UL (150-450) H Mean Platelet Volume 6.6 FL (6.5-10.1) Neutrophils (%) (Auto) 67.3 % (45.0-75.0) Lymphocytes (%) (Auto) 23.3 % (20.0-45.0) Monocytes (%) (Auto) 5.4 % (1.0-10.0) Eosinophils (%) (Auto) 3.4 % (0.0-3.0) H Basophils (%) (Auto) 0.6 % (0.0-2.0) Sodium Level 146 MMOL/L (136-145) H Potassium Level 3.5 MMOL/L (3.5-5.1) Chloride Level 114 MMOL/L (98-107) H Carbon Dioxide Level 23 MMOL/L (21-32) Anion Gap 10 mmol/L (5-15) Blood Urea Nitrogen 15 mg/dL (7-18) Creatinine 1.0 MG/DL (0.55-1.30) Estimat Glomerular Filtration Rate > 60 mL/min (>60) Glucose Level 101 MG/DL (74-106) Uric Acid 3.1 MG/DL (2.6-7.2) Calcium Level 8.4 MG/DL (8.5-10.1) L Phosphorus Level 2.4 MG/DL (2.5-4.9) L Magnesium Level 2.0 MG/DL (1.8-2.4) Total Bilirubin 0.2 MG/DL (0.2-1.0) Aspartate Amino Transf (AST/SGOT) 22 U/L (15-37) Alanine Aminotransferase (ALT/SGPT) 31 U/L (12-78) Alkaline Phosphatase 87 U/L (46-116) C-Reactive Protein, Quantitative 9.2 mg/dL (0.00-0.90) H Total Protein 6.8 G/DL (6.4-8.2) Albumin 2.3 G/DL (3.4-5.0) L Globulin 4.5 g/dL Albumin/Globulin Ratio 0.5 (1.0-2.7) L General: well developed, well nourished Head: normocophalic Neck: other EENT: benign, other Neurologic Exam Mental Status: other Speech: other Language: other Cranial Nerve II: fundus normal, visual roberts, no papilledema, other Cranial Nerves III, IV, : PERRLA, EOMI, other Cranial Nerve V: other Cranial Nerve VII: other Cranial Nerve VIII: other Cranial Nerve IX: other Cranial Nerve X: other Cranial Nerve XI: other Cranial Nerve XII: other Motor System: other Sensory: other Coordination: other - Patient has tracheostomy scar at throat, is tracking intermittently with his eyes, he doesn't follow commands, has rigid tone and spasticity in all extremities and triple flexes in LEs bilaterally with mild decerebrate posturing in UEs on noxious stim. Objective Patient has tracheostomy scar at throat, is tracking intermittently with his eyes, he doesn't follow commands, has rigid tone and spasticity in all extremities and triple flexes in LEs bilaterally with mild decerebrate posturing in UEs on noxious stim. He has nystagmus on gaze at rest bilaterally - He is much more alert still with fever now. Impression/Recommendations Problems: (1) Seizure disorder (2) Anoxic brain injury (3) Sepsis (4) Acute hypernatremia (5) Dehydration (6) Encephalopathy due to metabolic factor or toxin (7) Acute metabolic encephalopathy Assessment & Plan: Cultures Pending / WBCs downtrending but still febrile (8) Weakness generalized (9) Schizoaffective disorder Status: stable, fever Recommendations Q4 Hour obs Na 135-145 = water flushes to PEG feeding schedule Telemetry monitoring Maintain normothermia with Tylenol and cooling blanket Abx as per ID Maintain normoglycemia with ISS SBP<140 Continue Keppra 1000 mg BID - Ativan 1mg PRN for seizure Replete/ Replace Chey Copeland N.P. Mar 31, 2019 23:38
[2019-04-01] VITALS: BP 104/67
[2019-04-01] MEDS: Acetaminophen 650mg/20.3ml GT PRN ×3 (00:20→15:36)
[2019-04-01] MEDS: Vancomycin 500mg/D5W 110ml IVPB SCH ×2 (02:05)
[2019-04-01 04:00] VITALS: BP 131/82
[2019-04-01] MEDS: Piperacillin/Tazobactam 3.375 GM in NS 110 ML IVPB SCH (05:13)
[2019-04-01 08:00] VITALS: BP 116/81
[2019-04-01] MEDS: levETIRAcetam 500mg/5ml Liquid ORAL SCH ×2 (08:07→20:13)
[2019-04-01] MEDS: Metoprolol Tartrate 50mg tab GT SCH ×2 (08:18→20:13)
[2019-04-01] MEDS: Miralax 17gm pkt NG SCH (08:21)
[2019-04-01] MEDS: Docusate 100mg/10ml Liq GT SCH ×3 (08:21→18:00)
--- NOTE | 2019-04-01 09:01 | Cardiology Progress Note ---
Assessment/Plan Status: stable Assessment/Plan Assessment/Plan Assessment/Plan 1. Sinus tachycardia due to fever and severe dehydration. Better with iv fluids Continue Metoprolol 50 bid. Echocardiogram EF 60%. 2. Hypertension. Controlled Continue Metoprolol 50 mg b.i.d. 3. Sepsis, on IV antibiotic per Dr Shay. CT abdomen small bowel obstruction 4. Dysphagia, status post percutaneous endoscopic gastrostomy placement. 5. Anoxic brain injury and seizures. MRI brain negative for any acute findings 6. Acute renal failure and dehydration Per nephrology Subjective Cardiovascular: Reports: no symptoms Respiratory: Reports: no symptoms Gastrointestinal/Abdominal: Reports: no symptoms Genitourinary: Reports: no symptoms Subjective C[employer]AGE [employer] Tachycardic, febrile 101.8, non verbal. No acute events Objective Last 24 Hour Vital Signs Date Time Temp Pulse Resp B/P (MAP) Pulse Ox O2 Delivery O2 Flow Rate FiO2 04/01/19 08:18 127 116/81 04/01/19 07:19 101.8 04/01/19 04:00 101.6 125 20 131/82 (98) 96 04/01/19 00:50 100.0 04/01/19 00:00 101.0 115 20 104/67 (79) 97 03/31/19 21:00 109 106/56 03/31/19 21:00 Room Air 03/31/19 20:00 99.7 104 19 108/68 (81) 96 03/31/19 16:00 99.2 104 19 108/68 (81) 96 03/31/19 12:00 98.3 104 22 103/72 (82) 99 General Appearance: no apparent distress EENT: PERRL/EOMI, normal ENT inspection, TMs normal, pharynx normal Neck: non-tender, normal alignment, supple, normal inspection Rhythm: ST Cardiovascular: normal rate, tachycardia Respiratory/Chest: chest wall non-tender, lungs clear Abdomen: normal bowel sounds, no organomegaly Extremities: non-tender, no calf tenderness Neurologic: no motor/sensory deficits, unresponsiveness Intake and Output 03/31/19 04/01/19 19:00 07:00 Intake Total 1568.15 ml 2775.0 ml Output Total 600 ml Balance 968.15 ml 2775.0 ml Intake Oral 358 ml Free Water 200 ml 270 ml IV Total 650.15 ml 1995.0 ml Tube Feeding 360 ml 510 ml Output Urine Total 600 ml # Bowel Movements 2 Microbiology Date/Time Source Procedure Growth Status 03/29/19 16:30 Blood Blood Culture - Preliminary NO GROWTH AFTER 48 HOURS Resulted 03/29/19 16:15 Blood Blood Culture - Preliminary NO GROWTH AFTER 48 HOURS Resulted Zacarias Werner MD Apr 01, 2019 09:01
[2019-04-01 09:06] LABS: BASOPHILS % (AUTO) 0.9 % (0.0-2.0); EOSINOPHILS % (AUTO) 2.5 % (0.0-3.0); HEMATOCRIT 30.1 % (42.0-52.0); HEMOGLOBIN 10.2 G/DL (14.2-18.0); LYMPHOCYTES % (AUTO) 20.4 % (20.0-45.0); MEAN CORPUSCULAR VOLUME 88 FL (80-99); MONOCYTES % (AUTO) 6.1 % (1.0-10.0); PLATELET COUNT 464 K/UL (150-450); RED BLOOD COUNT 3.42 M/UL (4.70-6.10); WHITE BLOOD COUNT 10.3 K/UL (4.8-10.8)
[2019-04-01 09:22] LABS: ANION GAP 9 mmol/L (5-15); BLOOD UREA NITROGEN 13 mg/dL (7-18); CALCIUM 7.7 MG/DL (8.5-10.1); CARBON DIOXIDE 23 MMOL/L (21-32); CHLORIDE 113 MMOL/L (98-107); CREATININE 0.9 MG/DL (0.55-1.30); POTASSIUM 3.3 MMOL/L (3.5-5.1); SODIUM 145 MMOL/L (136-145)
[2019-04-01] MEDS ORDERED: Vancomycin 750mg/NS 275ml IVPB SCH ×2 (10:00)
[2019-04-01 10:19] LABS: ALANINE AMINOTRANSFERASE 37 U/L (12-78); ALBUMIN 2.2 G/DL (3.4-5.0); ALKALINE PHOSPHATASE 80 U/L (46-116); ASPARTATE AMINO TRANSFERASE 21 U/L (15-37); BILIRUBIN,DIRECT < 0.1 MG/DL (0.0-0.3); BILIRUBIN,TOTAL 0.2 MG/DL (0.2-1.0); PHOSPHORUS 1.5 MG/DL (2.5-4.9)
--- NOTE | 2019-04-01 10:51 | GI Progress Note ---
Assessment/Plan Problems: (1) Feeding by G-tube ICD Codes: Z93.1 - Gastrostomy status SNOMED: 217898583, 252486882, 824926287 (2) Dysphagia ICD Codes: R13.10 - Dysphagia, unspecified SNOMED: 99656385, 854321277 (3) Anemia ICD Codes: D64.9 - Anemia, unspecified SNOMED: 275166565 (4) Diarrhea ICD Codes: R19.7 - Diarrhea, unspecified SNOMED: 20465403 (5) SBO (small bowel obstruction) ICD Codes: K56.609 - Unspecified intestinal obstruction, unspecified as to partial versus complete obstruction SNOMED: 909162099 (6) Anoxic brain injury ICD Codes: G93.1 - Anoxic brain damage, not elsewhere classified SNOMED: 028764727 (7) Dehydration ICD Codes: E86.0 - Dehydration SNOMED: 02705701, 293446104 Status: unchanged Status Narrative Discussed with Dr. Ospina Assessment/Plan no SBO per X ray and exam increase GTF as tolerated to 60 cc Stop all stool softeners and laxatives Sent for C. difficile if patient has persistent diarrhea, DC PPI if positive Imodium as needed Electrolyte correction Reglan as needed for GI motility fu labs The patient was seen and examined at bedside and all new and available data was reviewed in the patients chart. I agree with the above findings, impression and plan. (Patient seen earlier today. Signature stamp does not reflect patient encounter time.). - Ruddy Ospina MD Subjective Subjective Limited Objective Last 24 Hour Vital Signs Date Time Temp Pulse Resp B/P (MAP) Pulse Ox O2 Delivery O2 Flow Rate FiO2 04/01/19 08:18 127 116/81 04/01/19 07:19 101.8 04/01/19 04:00 101.6 125 20 131/82 (98) 96 04/01/19 00:50 100.0 04/01/19 00:00 101.0 115 20 104/67 (79) 97 03/31/19 21:00 109 106/56 03/31/19 21:00 Room Air 03/31/19 20:00 99.7 104 19 108/68 (81) 96 03/31/19 16:00 99.2 104 19 108/68 (81) 96 03/31/19 12:00 98.3 104 22 103/72 (82) 99 Intake and Output 03/31/19 04/01/19 19:00 07:00 Intake Total 1568.15 ml 2775.0 ml Output Total 600 ml Balance 968.15 ml 2775.0 ml Intake Oral 358 ml Free Water 200 ml 270 ml IV Total 650.15 ml 1995.0 ml Tube Feeding 360 ml 510 ml Output Urine Total 600 ml # Bowel Movements 2 Laboratory Tests Test 04/01/19 08:55 White Blood Count 10.3 K/UL (4.8-10.8) Red Blood Count 3.42 M/UL (4.70-6.10) L Hemoglobin 10.2 G/DL (14.2-18.0) L Hematocrit 30.1 % (42.0-52.0) L Mean Corpuscular Volume 88 FL (80-99) Mean Corpuscular Hemoglobin 29.8 PG (27.0-31.0) Mean Corpuscular Hemoglobin Concent 33.9 G/DL (32.0-36.0) Red Cell Distribution Width 12.0 % (11.6-14.8) Platelet Count 464 K/UL (150-450) H Mean Platelet Volume 6.2 FL (6.5-10.1) L Neutrophils (%) (Auto) 70.0 % (45.0-75.0) Lymphocytes (%) (Auto) 20.4 % (20.0-45.0) Monocytes (%) (Auto) 6.1 % (1.0-10.0) Eosinophils (%) (Auto) 2.5 % (0.0-3.0) Basophils (%) (Auto) 0.9 % (0.0-2.0) Sodium Level 145 MMOL/L (136-145) Potassium Level 3.3 MMOL/L (3.5-5.1) L Chloride Level 113 MMOL/L (98-107) H Carbon Dioxide Level 23 MMOL/L (21-32) Anion Gap 9 mmol/L (5-15) Blood Urea Nitrogen 13 mg/dL (7-18) Creatinine 0.9 MG/DL (0.55-1.30) Estimat Glomerular Filtration Rate > 60 mL/min (>60) Glucose Level 145 MG/DL (74-106) H Calcium Level 7.7 MG/DL (8.5-10.1) L Phosphorus Level 1.5 MG/DL (2.5-4.9) L Magnesium Level 2.0 MG/DL (1.8-2.4) Total Bilirubin 0.2 MG/DL (0.2-1.0) Direct Bilirubin < 0.1 MG/DL (0.0-0.3) Aspartate Amino Transf (AST/SGOT) 21 U/L (15-37) Alanine Aminotransferase (ALT/SGPT) 37 U/L (12-78) Alkaline Phosphatase 80 U/L (46-116) Total Protein 6.6 G/DL (6.4-8.2) Albumin 2.2 G/DL (3.4-5.0) L Vancomycin Level Trough 11.4 ug/mL (5.0-12.0) Height (Feet): 5 Height (Inches): 7.00 Weight (Pounds): 111 General Appearance: WD/WN, no apparent distress, alert Cardiovascular: normal rate Respiratory/Chest: normal breath sounds, no respiratory distress Abdominal Exam: normal bowel sounds, non tender, soft Extremities: normal range of motion, non-tender Objective Reported diarrhea Alvaro Ybarra NP Apr 01, 2019 10:51
[2019-04-01 12:00] VITALS: BP 125/85
--- NOTE | 2019-04-01 12:40 | Infectious Diseases Prog Note ---
Assessment/Plan Assessment/Plan IMPRESSION: 1. Fever,? FUO 2. Leukocytosis resolved 3. Tachycardia. 4. He has anoxic encephalopathy. 5. MRSA colonization. 6. Hypernatremia and azotemia. 7. Seizure disorder. 8. Hypertension. 9. Small bowel obstruction versus enteritis 10. Diarrhea RECOMMENDATION: will f/u c.difficile test Discontinue Zosyn & IV Vancomycin Start on Flgyl by GT Subjective ROS Limited/Unobtainable: Yes Constitutional: Reports: fever, other - T rtt=[id number] Gastrointestinal/Abdominal: Reports: diarrhea Allergies: Coded Allergies: No Known Allergies (Unverified , 08/20/18) Objective Vital Signs Last 24 Hour Vital Signs Date Time Temp Pulse Resp B/P (MAP) Pulse Ox O2 Delivery O2 Flow Rate FiO2 04/01/19 12:00 98.5 104 20 125/85 (98) 97 04/01/19 09:00 Room Air 04/01/19 08:18 127 116/81 04/01/19 08:00 101.8 127 20 116/81 (93) 96 04/01/19 07:19 101.8 04/01/19 04:00 101.6 125 20 131/82 (98) 96 04/01/19 00:50 100.0 04/01/19 00:00 101.0 115 20 104/67 (79) 97 03/31/19 21:00 109 106/56 03/31/19 21:00 Room Air 03/31/19 20:00 99.7 104 19 108/68 (81) 96 03/31/19 16:00 99.2 104 19 108/68 (81) 96 Height (Feet): 5 Height (Inches): 7.00 Weight (Pounds): 111 HEENT: mucous membranes moist Respiratory/Chest: lungs clear Cardiovascular: tachycardia Extremities: no edema Neurologic/Psychiatric: alert, aphasia Microbiology Date/Time Source Procedure Growth Status 03/29/19 16:30 Blood Blood Culture - Preliminary NO GROWTH AFTER 48 HOURS Resulted 03/29/19 16:15 Blood Blood Culture - Preliminary NO GROWTH AFTER 48 HOURS Resulted Laboratory Tests Test 04/01/19 08:55 White Blood Count 10.3 K/UL (4.8-10.8) Red Blood Count 3.42 M/UL (4.70-6.10) L Hemoglobin 10.2 G/DL (14.2-18.0) L Hematocrit 30.1 % (42.0-52.0) L Mean Corpuscular Volume 88 FL (80-99) Mean Corpuscular Hemoglobin 29.8 PG (27.0-31.0) Mean Corpuscular Hemoglobin Concent 33.9 G/DL (32.0-36.0) Red Cell Distribution Width 12.0 % (11.6-14.8) Platelet Count 464 K/UL (150-450) H Mean Platelet Volume 6.2 FL (6.5-10.1) L Neutrophils (%) (Auto) 70.0 % (45.0-75.0) Lymphocytes (%) (Auto) 20.4 % (20.0-45.0) Monocytes (%) (Auto) 6.1 % (1.0-10.0) Eosinophils (%) (Auto) 2.5 % (0.0-3.0) Basophils (%) (Auto) 0.9 % (0.0-2.0) Sodium Level 145 MMOL/L (136-145) Potassium Level 3.3 MMOL/L (3.5-5.1) L Chloride Level 113 MMOL/L (98-107) H Carbon Dioxide Level 23 MMOL/L (21-32) Anion Gap 9 mmol/L (5-15) Blood Urea Nitrogen 13 mg/dL (7-18) Creatinine 0.9 MG/DL (0.55-1.30) Estimat Glomerular Filtration Rate > 60 mL/min (>60) Glucose Level 145 MG/DL (74-106) H Calcium Level 7.7 MG/DL (8.5-10.1) L Phosphorus Level 1.5 MG/DL (2.5-4.9) L Magnesium Level 2.0 MG/DL (1.8-2.4) Total Bilirubin 0.2 MG/DL (0.2-1.0) Direct Bilirubin < 0.1 MG/DL (0.0-0.3) Aspartate Amino Transf (AST/SGOT) 21 U/L (15-37) Alanine Aminotransferase (ALT/SGPT) 37 U/L (12-78) Alkaline Phosphatase 80 U/L (46-116) Total Protein 6.6 G/DL (6.4-8.2) Albumin 2.2 G/DL (3.4-5.0) L Vancomycin Level Trough 11.4 ug/mL (5.0-12.0) Current Medications Medications (Trade) Dose Ordered Sig/Yohannes Route PRN Reason Start Time Stop Time Status Last Admin Dose Admin Acetaminophen (Tylenol) 650 mg Q6H PRN GT Mild Pain/Temp > 100.5 03/23/19 19:00 04/20/19 18:59 04/01/19 06:49 Bisacodyl (Dulcolax) 10 mg DAILY PRN RECTAL Constipation 03/23/19 19:00 04/22/19 18:59 Docusate Sodium (Colace) 100 mg TID GT 03/24/19 09:00 04/23/19 08:59 03/29/19 09:26 Lansoprazole (Prevacid) 30 mg DAILY GT 03/27/19 15:15 04/26/19 15:14 04/01/19 08:07 Levetiracetam (Keppra) 1,000 mg Q12HR ORAL 03/23/19 21:00 04/20/19 08:59 04/01/19 08:07 Loperamide HCl (Imodium) 2 mg Q6H PRN GT Diarrhea 04/01/19 12:15 05/01/19 12:14 Metoprolol Tartrate (Lopressor) 50 mg Q12HR GT 03/29/19 21:00 04/26/19 20:59 04/01/19 08:18 Piperacillin Sod/ Tazobactam Sod 3.375 gm/Sodium Chloride 110 ml @ 27.5 mls/hr EVERY 8 HOURS IVPB 03/28/19 22:00 04/02/19 21:59 04/01/19 05:13 Polyethylene Glycol (Miralax) 17 gm DAILY NG 03/24/19 09:00 04/20/19 08:59 03/29/19 09:26 Potassium Chloride (K-Dur) 20 meq TWICE A DAY GT 04/01/19 10:00 04/02/19 09:59 04/01/19 11:08 Sennosides (Senokot) 17.2 mg BEDTIME GT 03/23/19 21:00 04/20/19 20:59 03/28/19 21:16 Sodium Chloride 1,000 ml @ 75 mls/hr [id number] IV 03/27/19 15:00 04/26/19 14:59 03/31/19 12:58 Vancomycin HCl (Vanco rx to dose) 1 ea DAILY PRN MISC Per rx protocol 03/29/19 13:30 04/28/19 13:29 Vancomycin HCl 750 mg/Sodium Chloride 275 ml @ 183.333 mls/hr Q8H IVPB 04/01/19 10:00 04/06/19 09:59 Yash Shay MD Apr 01, 2019 12:40
--- NOTE | 2019-04-01 12:45 | Nephrology Progress Note ---
Assessment/Plan Problem List: (1) Acute renal failure (2) Acute prerenal azotemia Assessment: dehydration (3) Dehydration (4) Seizure disorder (5) Anoxic brain injury (6) Sepsis (7) Hypercalcemia Assessment Renal failure: Dehydration Hypernatremia, Free water deficit Sepsis Acute metabolic encephalopathy PEG Sz disorder HTN Plan lowering Cr High Vanco level , now lowering One dose Aredia for high Ca- Calcium now in range- IV adjusted. K and Phos and Mag as needed monitor lytes GT feeding NS IV Fluids Coreg GT change to lopressor monitor electrolytes per orders Subjective ROS Limited/Unobtainable: Yes Objective Objective Last 24 Hour Vital Signs Date Time Temp Pulse Resp B/P (MAP) Pulse Ox O2 Delivery O2 Flow Rate FiO2 04/01/19 12:00 98.5 104 20 125/85 (98) 97 04/01/19 09:00 Room Air 04/01/19 08:18 127 116/81 04/01/19 08:00 101.8 127 20 116/81 (93) 96 04/01/19 07:19 101.8 04/01/19 04:00 101.6 125 20 131/82 (98) 96 04/01/19 00:50 100.0 04/01/19 00:00 101.0 115 20 104/67 (79) 97 03/31/19 21:00 109 106/56 03/31/19 21:00 Room Air 03/31/19 20:00 99.7 104 19 108/68 (81) 96 03/31/19 16:00 99.2 104 19 108/68 (81) 96 Intake and Output 03/31/19 04/01/19 19:00 07:00 Intake Total 1568.15 ml 2775.0 ml Output Total 600 ml Balance 968.15 ml 2775.0 ml Intake Oral 358 ml Free Water 200 ml 270 ml IV Total 650.15 ml 1995.0 ml Tube Feeding 360 ml 510 ml Output Urine Total 600 ml # Bowel Movements 2 Laboratory Tests 04/01/19 08:55: White Blood Count 10.3, Red Blood Count 3.42L, Hemoglobin 10.2L, Hematocrit 30.1L, Mean Corpuscular Volume 88, Mean Corpuscular Hemoglobin 29.8, Mean Corpuscular Hemoglobin Concent 33.9, Red Cell Distribution Width 12.0, Platelet Count 464H, Mean Platelet Volume 6.2L, Neutrophils (%) (Auto) 70.0, Lymphocytes (%) (Auto) 20.4, Monocytes (%) (Auto) 6.1, Eosinophils (%) (Auto) 2.5, Basophils (%) (Auto) 0.9, Sodium Level 145, Potassium Level 3.3L, Chloride Level 113H, Carbon Dioxide Level 23, Anion Gap 9, Blood Urea Nitrogen 13, Creatinine 0.9, Estimat Glomerular Filtration Rate > 60, Glucose Level 145H, Calcium Level 7.7L, Phosphorus Level 1.5L, Magnesium Level 2.0, Total Bilirubin 0.2, Direct Bilirubin < 0.1, Aspartate Amino Transf (AST/SGOT) 21, Alanine Aminotransferase (ALT/SGPT) 37, Alkaline Phosphatase 80, Total Protein 6.6, Albumin 2.2L, Vancomycin Level Trough 11.4 Height (Feet): 5 Height (Inches): 7.00 Weight (Pounds): 111 EENT: other - trach Respiratory/Chest: decreased breath sounds Abdomen: other - PEG Objective no change Janes Barros MD Apr 01, 2019 12:45
[2019-04-01] MEDS ORDERED: Potassium Phosphate 30 MM in NS 275 ML IV SCH (14:00)
[2019-04-01] MEDS: metroNIDAZOLE 500mg tab GT SCH ×2 (14:00→22:10)
[2019-04-01 16:00] VITALS: BP 124/97
--- NOTE | 2019-04-01 17:26 | Neurology Progress Note ---
Interim History Interim History ROS Limited/Unobtainable: Yes Complaints: AMS Events: This visit was performed on April 01, [address] Jin Interim History afebrile, alert, MS stable. Objective Physical Exam Last Vital Signs Date Time Temp Pulse Resp B/P (MAP) Pulse Ox O2 Delivery O2 Flow Rate FiO2 04/01/19 16:00 98.4 120 20 124/97 (106) 98 04/01/19 09:00 Room Air 03/27/19 08:06 21 Laboratory Tests Test 04/01/19 08:55 White Blood Count 10.3 K/UL (4.8-10.8) Red Blood Count 3.42 M/UL (4.70-6.10) L Hemoglobin 10.2 G/DL (14.2-18.0) L Hematocrit 30.1 % (42.0-52.0) L Mean Corpuscular Volume 88 FL (80-99) Mean Corpuscular Hemoglobin 29.8 PG (27.0-31.0) Mean Corpuscular Hemoglobin Concent 33.9 G/DL (32.0-36.0) Red Cell Distribution Width 12.0 % (11.6-14.8) Platelet Count 464 K/UL (150-450) H Mean Platelet Volume 6.2 FL (6.5-10.1) L Neutrophils (%) (Auto) 70.0 % (45.0-75.0) Lymphocytes (%) (Auto) 20.4 % (20.0-45.0) Monocytes (%) (Auto) 6.1 % (1.0-10.0) Eosinophils (%) (Auto) 2.5 % (0.0-3.0) Basophils (%) (Auto) 0.9 % (0.0-2.0) Sodium Level 145 MMOL/L (136-145) Potassium Level 3.3 MMOL/L (3.5-5.1) L Chloride Level 113 MMOL/L (98-107) H Carbon Dioxide Level 23 MMOL/L (21-32) Anion Gap 9 mmol/L (5-15) Blood Urea Nitrogen 13 mg/dL (7-18) Creatinine 0.9 MG/DL (0.55-1.30) Estimat Glomerular Filtration Rate > 60 mL/min (>60) Glucose Level 145 MG/DL (74-106) H Calcium Level 7.7 MG/DL (8.5-10.1) L Phosphorus Level 1.5 MG/DL (2.5-4.9) L Magnesium Level 2.0 MG/DL (1.8-2.4) Total Bilirubin 0.2 MG/DL (0.2-1.0) Direct Bilirubin < 0.1 MG/DL (0.0-0.3) Aspartate Amino Transf (AST/SGOT) 21 U/L (15-37) Alanine Aminotransferase (ALT/SGPT) 37 U/L (12-78) Alkaline Phosphatase 80 U/L (46-116) Total Protein 6.6 G/DL (6.4-8.2) Albumin 2.2 G/DL (3.4-5.0) L Vancomycin Level Trough 11.4 ug/mL (5.0-12.0) General: well developed, well nourished Head: normocophalic Neck: other EENT: benign, other Neurologic Exam Mental Status: other Speech: other Language: other Cranial Nerve II: fundus normal, visual roberts, no papilledema, other Cranial Nerves III, IV, : PERRLA, EOMI, other Cranial Nerve V: other Cranial Nerve VII: other Cranial Nerve VIII: other Cranial Nerve IX: other Cranial Nerve X: other Cranial Nerve XI: other Cranial Nerve XII: other Motor System: other Sensory: other Coordination: other - Patient has tracheostomy scar at throat, is tracking intermittently with his eyes, he doesn't follow commands, has rigid tone and spasticity in all extremities and triple flexes in LEs bilaterally with mild decerebrate posturing in UEs on noxious stim. Deep Tendon Reflexes: 1+ bicep (L), 1+ bicep (R), 1+ tricep (L), 1+ tricep (R) , 1+ brachioradialis (L), 1+ brachioradialis (R), 1+ knee (L), 1+ knee (R), 1+ ankle (L), 1+ ankle (R) Reflexes: flexor plantar (L), flexor plantar (R); extensor plantar (L), extensor plantar (R) Objective Patient has tracheostomy scar at throat, is tracking intermittently with his eyes, he doesn't follow commands, has rigid tone and spasticity in all extremities and triple flexes in LEs bilaterally with mild decerebrate posturing in UEs on noxious stim. He has nystagmus on gaze at rest bilaterally - He is much more alert still with fever now. Impression/Recommendations Problems: (1) Seizure disorder (2) Anoxic brain injury (3) Sepsis (4) Acute hypernatremia (5) Dehydration (6) Encephalopathy due to metabolic factor or toxin (7) Acute metabolic encephalopathy Assessment & Plan: Cultures Pending / WBCs downtrending but still febrile (8) Weakness generalized (9) Schizoaffective disorder Status: unchanged Recommendations Q4 Hour obs Na 135-145 = water flushes to PEG feeding schedule Telemetry monitoring Maintain normothermia with Tylenol and cooling blanket Abx as per ID Maintain normoglycemia with ISS SBP<140 Continue Keppra 1000 mg BID - Ativan 1mg PRN for seizure Replete/ Replace lytes Cultures Pending Chey Long N.P. Apr 01, 2019 17:26
[2019-04-01 20:00] VITALS: BP 125/78
[2019-04-01] MEDS: Sennosides 8.6mg tab GT SCH (20:14)
--- NOTE | 2019-04-01 22:23 | General Progress Note ---
Assessment/Plan Problem List: (1) Schizoaffective disorder ICD Codes: F25.9 - Schizoaffective disorder, unspecified SNOMED: 36761413 (2) Seizure disorder ICD Codes: G40.909 - Epilepsy, unspecified, not intractable, without status epilepticus SNOMED: 748434537 (3) Dehydration ICD Codes: E86.0 - Dehydration SNOMED: 42681889, 634597219 (4) Sepsis ICD Codes: A41.9 - Sepsis, unspecified organism SNOMED: 37417154, 331395394 Qualifiers: Qualified Codes: A41.9 - Sepsis, unspecified organism (5) Acute metabolic encephalopathy ICD Codes: G93.41 - Metabolic encephalopathy SNOMED: 09669752, 134549697 Status: unchanged Assessment/Plan: no sbo encephalopathy malnutrition sepsis diarrhea peg feeding per gi no siezure dehydration improving reviewed chart and labs Subjective ROS Limited/Unobtainable: Yes Allergies: Coded Allergies: No Known Allergies (Unverified , 08/20/18) Objective Last 24 Hour Vital Signs Date Time Temp Pulse Resp B/P (MAP) Pulse Ox O2 Delivery O2 Flow Rate FiO2 04/01/19 21:00 Room Air 04/01/19 20:13 120 124/97 04/01/19 20:00 97.6 114 20 125/78 (94) 96 04/01/19 16:00 98.4 120 20 124/97 (106) 98 04/01/19 12:00 98.5 104 20 125/85 (98) 97 04/01/19 09:00 Room Air 04/01/19 08:18 127 116/81 04/01/19 08:00 101.8 127 20 116/81 (93) 96 04/01/19 07:19 101.8 04/01/19 04:00 101.6 125 20 131/82 (98) 96 04/01/19 00:50 100.0 04/01/19 00:00 101.0 115 20 104/67 (79) 97 Intake and Output 03/31/19 04/01/19 18:59 06:59 Intake Total 1538.15 ml 2832.5 ml Output Total 600 ml Balance 938.15 ml 2832.5 ml Intake Oral 358 ml Free Water 200 ml 270 ml IV Total 650.15 ml 2022.5 ml Tube Feeding 330 ml 540 ml Output Urine Total 600 ml # Bowel Movements 2 Laboratory Tests 04/01/19 08:55: White Blood Count 10.3, Red Blood Count 3.42L, Hemoglobin 10.2L, Hematocrit 30.1L, Mean Corpuscular Volume 88, Mean Corpuscular Hemoglobin 29.8, Mean Corpuscular Hemoglobin Concent 33.9, Red Cell Distribution Width 12.0, Platelet Count 464H, Mean Platelet Volume 6.2L, Neutrophils (%) (Auto) 70.0, Lymphocytes (%) (Auto) 20.4, Monocytes (%) (Auto) 6.1, Eosinophils (%) (Auto) 2.5, Basophils (%) (Auto) 0.9, Sodium Level 145, Potassium Level 3.3L, Chloride Level 113H, Carbon Dioxide Level 23, Anion Gap 9, Blood Urea Nitrogen 13, Creatinine 0.9, Estimat Glomerular Filtration Rate > 60, Glucose Level 145H, Calcium Level 7.7L, Phosphorus Level 1.5L, Magnesium Level 2.0, Total Bilirubin 0.2, Direct Bilirubin < 0.1, Aspartate Amino Transf (AST/SGOT) 21, Alanine Aminotransferase (ALT/SGPT) 37, Alkaline Phosphatase 80, Total Protein 6.6, Albumin 2.2L, Vancomycin Level Trough 11.4 Height (Feet): 5 Height (Inches): 7.00 Weight (Pounds): 111 General Appearance: lethargic Lenin Wyatt MD Apr 01, 2019 22:23
[2019-04-02] VITALS: BP 128/77
[2019-04-02 04:00] VITALS: BP 130/81
[2019-04-02] MEDS: metroNIDAZOLE 500mg tab GT SCH ×3 (05:31→22:53)
[2019-04-02] MEDS: Acetaminophen 650mg/20.3ml GT PRN ×3 (05:32→20:59)
--- NOTE | 2019-04-02 07:11 | Cardiology Progress Note ---
Assessment/Plan Status: stable Assessment/Plan Assessment/Plan Assessment/Plan 1. Sinus tachycardia due to fever and severe dehydration. Better with iv fluids Continue Metoprolol 50 bid. Echocardiogram EF 60%. 2. Hypertension. Controlled Continue Metoprolol 50 mg b.i.d. 3. Sepsis, on IV antibiotic per Dr Shay. CT abdomen small bowel obstruction 4. Dysphagia, status post percutaneous endoscopic gastrostomy placement. 5. Anoxic brain injury and seizures. MRI brain negative for any acute findings 6. Acute renal failure and dehydration Per nephrology Subjective Cardiovascular: Reports: no symptoms Respiratory: Reports: no symptoms Gastrointestinal/Abdominal: Reports: no symptoms Genitourinary: Reports: no symptoms Subjective [employer] Tachycardic, febrile 100.5, non verbal. No acute events, tolerating G tube feeds Objective Last 24 Hour Vital Signs Date Time Temp Pulse Resp B/P (MAP) Pulse Ox O2 Delivery O2 Flow Rate FiO2 04/02/19 06:02 99.7 04/02/19 04:00 100.5 115 20 130/81 (97) 96 04/02/19 00:00 99.5 97 20 128/77 (94) 97 04/01/19 21:00 Room Air 04/01/19 20:13 120 124/97 04/01/19 20:00 97.6 114 20 125/78 (94) 96 04/01/19 16:00 98.4 120 20 124/97 (106) 98 04/01/19 12:00 98.5 104 20 125/85 (98) 97 04/01/19 09:00 Room Air 04/01/19 08:18 127 116/81 04/01/19 08:00 101.8 127 20 116/81 (93) 96 General Appearance: no apparent distress EENT: PERRL/EOMI, normal ENT inspection, TMs normal, pharynx normal Neck: non-tender, normal alignment, supple, normal inspection, no JVD Rhythm: NSR Cardiovascular: normal peripheral pulses, normal rate, regular rhythm Respiratory/Chest: chest wall non-tender, lungs clear Abdomen: normal bowel sounds, non tender, soft, no organomegaly Extremities: normal range of motion, non-tender, normal inspection 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, no motor/sensory deficits Intake and Output 04/01/19 04/02/19 19:00 07:00 Intake Total 1070.0 ml 1260 ml Output Total 1400 ml 851 ml Balance -330.0 ml 409 ml Intake Oral 240 ml Free Water 100 ml 300 ml IV Total 320.0 ml Tube Feeding 650 ml 720 ml Output Urine Total 1400 ml 850 ml Stool Total 1 ml # Voids 1 # Bowel Movements 2 3 Laboratory Tests Test 04/01/19 08:55 04/02/19 05:20 White Blood Count 10.3 K/UL (4.8-10.8) Pending Red Blood Count 3.42 M/UL (4.70-6.10) L Pending Hemoglobin 10.2 G/DL (14.2-18.0) L Pending Hematocrit 30.1 % (42.0-52.0) L Pending Mean Corpuscular Volume 88 FL (80-99) Pending Mean Corpuscular Hemoglobin 29.8 PG (27.0-31.0) Pending Mean Corpuscular Hemoglobin Concent 33.9 G/DL (32.0-36.0) Pending Red Cell Distribution Width 12.0 % (11.6-14.8) Pending Platelet Count 464 K/UL (150-450) H Pending Mean Platelet Volume 6.2 FL (6.5-10.1) L Pending Neutrophils (%) (Auto) 70.0 % (45.0-75.0) Pending Lymphocytes (%) (Auto) 20.4 % (20.0-45.0) Pending Monocytes (%) (Auto) 6.1 % (1.0-10.0) Pending Eosinophils (%) (Auto) 2.5 % (0.0-3.0) Pending Basophils (%) (Auto) 0.9 % (0.0-2.0) Pending Sodium Level 145 MMOL/L (136-145) Pending Potassium Level 3.3 MMOL/L (3.5-5.1) L Pending Chloride Level 113 MMOL/L (98-107) H Pending Carbon Dioxide Level 23 MMOL/L (21-32) Pending Anion Gap 9 mmol/L (5-15) Blood Urea Nitrogen 13 mg/dL (7-18) Pending Creatinine 0.9 MG/DL (0.55-1.30) Pending Estimat Glomerular Filtration Rate > 60 mL/min (>60) Pending Glucose Level 145 MG/DL (74-106) H Pending Calcium Level 7.7 MG/DL (8.5-10.1) L Pending Phosphorus Level 1.5 MG/DL (2.5-4.9) L Pending Magnesium Level 2.0 MG/DL (1.8-2.4) Pending Total Bilirubin 0.2 MG/DL (0.2-1.0) Pending Direct Bilirubin < 0.1 MG/DL (0.0-0.3) Aspartate Amino Transf (AST/SGOT) 21 U/L (15-37) Pending Alanine Aminotransferase (ALT/SGPT) 37 U/L (12-78) Pending Alkaline Phosphatase 80 U/L (46-116) Pending Total Protein 6.6 G/DL (6.4-8.2) Pending Albumin 2.2 G/DL (3.4-5.0) L Pending Vancomycin Level Trough 11.4 ug/mL (5.0-12.0) Globulin Pending Microbiology Date/Time Source Procedure Growth Status 04/01/19 11:15 Stool Clostridium difficile Toxin Assay - Final Complete FilsoZacarias kinsey MD Apr 02, 2019 07:11
[2019-04-02 07:14] LABS: BASOPHILS % (AUTO) 0.7 % (0.0-2.0); HEMATOCRIT 32.3 % (42.0-52.0); MEAN CORPUSCULAR VOLUME 88 FL (80-99); MONOCYTES % (AUTO) 5.5 % (1.0-10.0); NEUTROPHILS % (AUTO) 67.8 % (45.0-75.0); PLATELET COUNT 505 K/UL (150-450); RED BLOOD COUNT 3.67 M/UL (4.70-6.10); WHITE BLOOD COUNT 11.8 K/UL (4.8-10.8)
[2019-04-02 07:42] LABS: ALANINE AMINOTRANSFERASE 29 U/L (12-78); ALBUMIN 2.5 G/DL (3.4-5.0); ALBUMIN/GLOBULIN RATIO 0.5 (1.0-2.7); ALKALINE PHOSPHATASE 82 U/L (46-116); ANION GAP 11 mmol/L (5-15); ASPARTATE AMINO TRANSFERASE 17 U/L (15-37); BILIRUBIN,TOTAL 0.3 MG/DL (0.2-1.0); BLOOD UREA NITROGEN 12 mg/dL (7-18); CALCIUM 8.1 MG/DL (8.5-10.1); CARBON DIOXIDE 23 MMOL/L (21-32); CHLORIDE 111 MMOL/L (98-107); CREATININE 0.7 MG/DL (0.55-1.30); PHOSPHORUS 1.6 MG/DL (2.5-4.9); POTASSIUM 3.8 MMOL/L (3.5-5.1); SODIUM 145 MMOL/L (136-145)
[2019-04-02 08:00] VITALS: BP 127/79
[2019-04-02] MEDS: Metoprolol Tartrate 50mg tab GT SCH ×2 (08:23→20:59)
[2019-04-02] MEDS: levETIRAcetam 500mg/5ml Liquid ORAL SCH ×2 (08:24→20:59)
[2019-04-02] MEDS: Miralax 17gm pkt NG SCH (08:25)
[2019-04-02] MEDS: Docusate 100mg/10ml Liq GT SCH ×3 (09:00→17:01)
[2019-04-02] MEDS ORDERED: Potassium Phosphate 30 MM in NS 275 ML IV ONE (11:00)
[2019-04-02 12:00] VITALS: BP 112/75
--- NOTE | 2019-04-02 12:00 | Nephrology Progress Note ---
Assessment/Plan Problem List: (1) Acute renal failure (2) Acute prerenal azotemia Assessment: dehydration (3) Dehydration (4) Seizure disorder (5) Anoxic brain injury (6) Sepsis (7) Hypercalcemia Assessment Renal failure: Dehydration Hypernatremia, Free water deficit Sepsis Acute metabolic encephalopathy PEG Sz disorder HTN Plan lowering Cr High Vanco level , now lowering One dose Aredia for high Ca- Calcium now in range- IV adjusted. K and Phos and Mag as needed monitor lytes GT feeding NS IV Fluids Coreg GT change to lopressor monitor electrolytes per orders Subjective ROS Limited/Unobtainable: Yes Objective Objective Last 24 Hour Vital Signs Date Time Temp Pulse Resp B/P (MAP) Pulse Ox O2 Delivery O2 Flow Rate FiO2 04/02/19 09:00 Room Air 04/02/19 08:23 115 130/81 04/02/19 08:00 99.5 98 20 127/79 (95) 96 04/02/19 06:02 99.7 04/02/19 04:00 100.5 115 20 130/81 (97) 96 04/02/19 00:00 99.5 97 20 128/77 (94) 97 04/01/19 21:00 Room Air 04/01/19 20:13 120 124/97 04/01/19 20:00 97.6 114 20 125/78 (94) 96 04/01/19 16:00 98.4 120 20 124/97 (106) 98 Intake and Output 04/01/19 04/02/19 19:00 07:00 Intake Total 1070.0 ml 1260 ml Output Total 1400 ml 851 ml Balance -330.0 ml 409 ml Intake Oral 240 ml Free Water 100 ml 300 ml IV Total 320.0 ml Tube Feeding 650 ml 720 ml Output Urine Total 1400 ml 850 ml Stool Total 1 ml # Voids 1 # Bowel Movements 2 3 Laboratory Tests 04/02/19 05:20: White Blood Count 11.8H, Red Blood Count 3.67L, Hemoglobin 11.0L, Hematocrit 32.3L, Mean Corpuscular Volume 88, Mean Corpuscular Hemoglobin 30.0, Mean Corpuscular Hemoglobin Concent 34.2, Red Cell Distribution Width 12.0, Platelet Count 505H, Mean Platelet Volume 6.3L, Neutrophils (%) (Auto) 67.8, Lymphocytes (%) (Auto) 23.0, Monocytes (%) (Auto) 5.5, Eosinophils (%) (Auto) 3.0, Basophils (%) (Auto) 0.7, Sodium Level 145, Potassium Level 3.8, Chloride Level 111H, Carbon Dioxide Level 23, Anion Gap 11, Blood Urea Nitrogen 12, Creatinine 0.7, Estimat Glomerular Filtration Rate > 60, Glucose Level 125H, Calcium Level 8.1L, Phosphorus Level 1.6L, Magnesium Level 1.9, Total Bilirubin 0.3, Aspartate Amino Transf (AST/SGOT) 17, Alanine Aminotransferase (ALT/SGPT) 29, Alkaline Phosphatase 82, Total Protein 7.2, Albumin 2.5L, Globulin 4.7, Albumin/ Globulin Ratio 0.5L Height (Feet): 5 Height (Inches): 7.00 Weight (Pounds): 111 EENT: other - trach Cardiovascular: tachycardia Respiratory/Chest: decreased breath sounds Abdomen: soft Objective no change Janes Barros MD Apr 02, 2019 12:00
--- NOTE | 2019-04-02 12:44 | General Progress Note ---
Assessment/Plan Problem List: (1) Schizoaffective disorder ICD Codes: F25.9 - Schizoaffective disorder, unspecified SNOMED: 58827478 (2) Seizure disorder ICD Codes: G40.909 - Epilepsy, unspecified, not intractable, without status epilepticus SNOMED: 424701082 (3) Dehydration ICD Codes: E86.0 - Dehydration SNOMED: 74061051, 908318789 (4) Sepsis ICD Codes: A41.9 - Sepsis, unspecified organism SNOMED: 00951065, 960910688 Qualifiers: Qualified Codes: A41.9 - Sepsis, unspecified organism (5) Acute metabolic encephalopathy ICD Codes: G93.41 - Metabolic encephalopathy SNOMED: 91980492, 566136368 Status: stable Assessment/Plan: afebrile nonverbal not much changed gastroparesis sepsis diarrhea peg feeding per gi no siezure dehydration improving reviewed chart and labs Subjective ROS Limited/Unobtainable: Yes Allergies: Coded Allergies: No Known Allergies (Unverified , 08/20/18) Objective Last 24 Hour Vital Signs Date Time Temp Pulse Resp B/P (MAP) Pulse Ox O2 Delivery O2 Flow Rate FiO2 04/02/19 12:00 99.4 121 23 112/75 (87) 97 04/02/19 09:00 Room Air 04/02/19 08:23 115 130/81 04/02/19 08:00 99.5 98 20 127/79 (95) 96 04/02/19 06:02 99.7 04/02/19 04:00 100.5 115 20 130/81 (97) 96 04/02/19 00:00 99.5 97 20 128/77 (94) 97 04/01/19 21:00 Room Air 04/01/19 20:13 120 124/97 04/01/19 20:00 97.6 114 20 125/78 (94) 96 04/01/19 16:00 98.4 120 20 124/97 (106) 98 Intake and Output 04/01/19 04/02/19 19:00 07:00 Intake Total 1070.0 ml 1260 ml Output Total 1400 ml 851 ml Balance -330.0 ml 409 ml Intake Oral 240 ml Free Water 100 ml 300 ml IV Total 320.0 ml Tube Feeding 650 ml 720 ml Output Urine Total 1400 ml 850 ml Stool Total 1 ml # Voids 1 # Bowel Movements 2 3 Laboratory Tests 04/02/19 05:20: White Blood Count 11.8H, Red Blood Count 3.67L, Hemoglobin 11.0L, Hematocrit 32.3L, Mean Corpuscular Volume 88, Mean Corpuscular Hemoglobin 30.0, Mean Corpuscular Hemoglobin Concent 34.2, Red Cell Distribution Width 12.0, Platelet Count 505H, Mean Platelet Volume 6.3L, Neutrophils (%) (Auto) 67.8, Lymphocytes (%) (Auto) 23.0, Monocytes (%) (Auto) 5.5, Eosinophils (%) (Auto) 3.0, Basophils (%) (Auto) 0.7, Sodium Level 145, Potassium Level 3.8, Chloride Level 111H, Carbon Dioxide Level 23, Anion Gap 11, Blood Urea Nitrogen 12, Creatinine 0.7, Estimat Glomerular Filtration Rate > 60, Glucose Level 125H, Calcium Level 8.1L, Phosphorus Level 1.6L, Magnesium Level 1.9, Total Bilirubin 0.3, Aspartate Amino Transf (AST/SGOT) 17, Alanine Aminotransferase (ALT/SGPT) 29, Alkaline Phosphatase 82, Total Protein 7.2, Albumin 2.5L, Globulin 4.7, Albumin/ Globulin Ratio 0.5L Height (Feet): 5 Height (Inches): 7.00 Weight (Pounds): 111 General Appearance: confused Respiratory/Chest: lungs clear Lenin Wyatt MD Apr 02, 2019 12:44
[2019-04-02 16:00] VITALS: BP 115/77
[2019-04-02] MEDS ORDERED: NS 500ML ONE (16:45)
[2019-04-02] MEDS ORDERED: Tubing IV Secondary IV ONE (16:45)
[2019-04-02 20:00] VITALS: BP 111/81
[2019-04-02] MEDS: Sennosides 8.6mg tab GT SCH (21:00)
--- NOTE | 2019-04-02 23:54 | Neurology Progress Note ---
Interim History Interim History ROS Limited/Unobtainable: Yes Complaints: AMS Events: This visit was performed on April 02, [address] Jin Interim History Febrile and Tachycardic with increasing WBCs Objective Physical Exam Last Vital Signs Date Time Temp Pulse Resp B/P (MAP) Pulse Ox O2 Delivery O2 Flow Rate FiO2 04/02/19 23:28 Room Air 04/02/19 21:29 99.7 04/02/19 20:59 118 115/77 04/02/19 16:00 20 97 03/27/19 08:06 21 Laboratory Tests Test 04/02/19 05:20 White Blood Count 11.8 K/UL (4.8-10.8) H Red Blood Count 3.67 M/UL (4.70-6.10) L Hemoglobin 11.0 G/DL (14.2-18.0) L Hematocrit 32.3 % (42.0-52.0) L Mean Corpuscular Volume 88 FL (80-99) Mean Corpuscular Hemoglobin 30.0 PG (27.0-31.0) Mean Corpuscular Hemoglobin Concent 34.2 G/DL (32.0-36.0) Red Cell Distribution Width 12.0 % (11.6-14.8) Platelet Count 505 K/UL (150-450) H Mean Platelet Volume 6.3 FL (6.5-10.1) L Neutrophils (%) (Auto) 67.8 % (45.0-75.0) Lymphocytes (%) (Auto) 23.0 % (20.0-45.0) Monocytes (%) (Auto) 5.5 % (1.0-10.0) Eosinophils (%) (Auto) 3.0 % (0.0-3.0) Basophils (%) (Auto) 0.7 % (0.0-2.0) Sodium Level 145 MMOL/L (136-145) Potassium Level 3.8 MMOL/L (3.5-5.1) Chloride Level 111 MMOL/L (98-107) H Carbon Dioxide Level 23 MMOL/L (21-32) Anion Gap 11 mmol/L (5-15) Blood Urea Nitrogen 12 mg/dL (7-18) Creatinine 0.7 MG/DL (0.55-1.30) Estimat Glomerular Filtration Rate > 60 mL/min (>60) Glucose Level 125 MG/DL (74-106) H Calcium Level 8.1 MG/DL (8.5-10.1) L Phosphorus Level 1.6 MG/DL (2.5-4.9) L Magnesium Level 1.9 MG/DL (1.8-2.4) Total Bilirubin 0.3 MG/DL (0.2-1.0) Aspartate Amino Transf (AST/SGOT) 17 U/L (15-37) Alanine Aminotransferase (ALT/SGPT) 29 U/L (12-78) Alkaline Phosphatase 82 U/L (46-116) Total Protein 7.2 G/DL (6.4-8.2) Albumin 2.5 G/DL (3.4-5.0) L Globulin 4.7 g/dL Albumin/Globulin Ratio 0.5 (1.0-2.7) L General: well developed, well nourished Head: normocophalic Neck: other EENT: benign, other Neurologic Exam Mental Status: other Speech: other Language: other Cranial Nerve II: fundus normal, visual roberts, no papilledema, other Cranial Nerves III, IV, : PERRLA, EOMI, other Cranial Nerve V: other Cranial Nerve VII: other Cranial Nerve VIII: other Cranial Nerve IX: other Cranial Nerve X: other Cranial Nerve XI: other Cranial Nerve XII: other Motor System: other Sensory: other Coordination: other - Patient has tracheostomy scar at throat, is tracking intermittently with his eyes, he doesn't follow commands, has rigid tone and spasticity in all extremities and triple flexes in LEs bilaterally with mild decerebrate posturing in UEs on noxious stim. Deep Tendon Reflexes: 1+ bicep (L), 1+ bicep (R), 1+ tricep (L), 1+ tricep (R) , 1+ brachioradialis (L), 1+ brachioradialis (R), 1+ knee (L), 1+ knee (R), 1+ ankle (L), 1+ ankle (R) Reflexes: flexor plantar (L), flexor plantar (R); extensor plantar (L), extensor plantar (R) Objective Patient has tracheostomy scar at throat, is tracking intermittently with his eyes, he doesn't follow commands, has rigid tone and spasticity in all extremities and triple flexes in LEs bilaterally with mild decerebrate posturing in UEs on noxious stim. He has nystagmus on gaze at rest bilaterally - He is much more alert still with fever now. Impression/Recommendations Problems: (1) Seizure disorder (2) Anoxic brain injury (3) Sepsis (4) Acute hypernatremia (5) Dehydration (6) Encephalopathy due to metabolic factor or toxin (7) Acute metabolic encephalopathy Assessment & Plan: Cultures Pending / WBCs downtrending but still febrile (8) Weakness generalized (9) Schizoaffective disorder Status: not improved, unchanged Recommendations Q4 Hour obs Na 135-145 = water flushes to PEG feeding schedule Telemetry monitoring Maintain normothermia with Tylenol and cooling blanket Abx as per ID Maintain normoglycemia with ISS SBP<140 Continue Keppra 1000 mg BID - Ativan 1mg PRN for seizure Replete/ Replace lytes Cultures Pending Chey Long N.P. Apr 02, 2019 23:54
[2019-04-03] VITALS: BP 114/78
[2019-04-03 04:00] VITALS: BP 107/71
[2019-04-03] MEDS: metroNIDAZOLE 500mg tab GT SCH ×3 (05:36→21:30)
[2019-04-03 08:00] VITALS: BP 118/82
[2019-04-03] MEDS: Docusate 100mg/10ml Liq GT SCH ×3 (08:23→18:00)
[2019-04-03] MEDS: Miralax 17gm pkt NG SCH (08:24)
[2019-04-03] MEDS: levETIRAcetam 500mg/5ml Liquid ORAL SCH ×2 (09:03→21:30)
[2019-04-03] MEDS: Metoprolol Tartrate 50mg tab GT SCH ×2 (09:03→21:30)
--- NOTE | 2019-04-03 09:36 | Cardiology Progress Note ---
Assessment/Plan Status: stable Assessment/Plan Assessment/Plan Assessment/Plan 1. Sinus tachycardia due to fever and severe dehydration. Better with iv fluids Continue Metoprolol 50 bid. Echocardiogram EF 60%. 2. Hypertension. Controlled Continue Metoprolol 50 mg b.i.d. 3. Sepsis, on IV antibiotic per Dr Shay. CT abdomen small bowel obstruction 4. Dysphagia, status post percutaneous endoscopic gastrostomy placement. 5. Anoxic brain injury and seizures. MRI brain negative for any acute findings 6. Acute renal failure and dehydration Per nephrology Subjective Cardiovascular: Reports: no symptoms Respiratory: Reports: no symptoms Gastrointestinal/Abdominal: Reports: no symptoms Genitourinary: Reports: no symptoms Subjective [employer] Tachycardic, febrile non verbal. No acute events, tolerating G tube feeds Objective Last 24 Hour Vital Signs Date Time Temp Pulse Resp B/P (MAP) Pulse Ox O2 Delivery O2 Flow Rate FiO2 04/03/19 09:03 110 118/82 04/03/19 08:54 110 04/03/19 08:00 99.9 123 20 118/82 (94) 97 04/03/19 04:00 97.7 115 20 107/71 (83) 96 04/03/19 00:00 99.7 110 22 114/78 (90) 97 04/02/19 23:28 Room Air 04/02/19 21:29 99.7 04/02/19 20:59 118 115/77 04/02/19 20:00 100.5 112 20 111/81 (91) 97 04/02/19 16:00 98.3 118 20 115/77 (90) 97 04/02/19 12:00 99.4 121 23 112/75 (87) 97 General Appearance: no apparent distress, alert EENT: PERRL/EOMI, normal ENT inspection, TMs normal, pharynx normal Neck: non-tender, normal alignment, supple, normal inspection, no JVD Rhythm: NSR Cardiovascular: normal peripheral pulses, normal rate, regular rhythm, regularly irregular Respiratory/Chest: chest wall non-tender, lungs clear, normal breath sounds Abdomen: normal bowel sounds, non tender, soft, no organomegaly, no mass Extremities: normal range of motion, non-tender, normal inspection, no calf tenderness, no swelling 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
--- NOTE | 2019-04-03 10:08 | Infectious Diseases Prog Note ---
Assessment/Plan Assessment/Plan IMPRESSION: 1. Fever,? FUO 2. Leukocytosis 3. Tachycardia. 4. He has anoxic encephalopathy. 5. MRSA colonization. 6. Hypernatremia and azotemia. 7. Seizure disorder. 8. Hypertension. 9. Small bowel obstruction versus enteritis 10. Diarrhea, c.difficile test negative RECOMMENDATION: continue Flagyl by GT Subjective ROS Limited/Unobtainable: Yes Constitutional: Reports: fever, other Allergies: Coded Allergies: No Known Allergies (Unverified , 08/20/18) Objective Vital Signs Last 24 Hour Vital Signs Date Time Temp Pulse Resp B/P (MAP) Pulse Ox O2 Delivery O2 Flow Rate FiO2 04/03/19 09:03 110 118/82 04/03/19 08:54 110 04/03/19 08:00 99.9 123 20 118/82 (94) 97 04/03/19 04:00 97.7 115 20 107/71 (83) 96 04/03/19 00:00 99.7 110 22 114/78 (90) 97 04/02/19 23:28 Room Air 04/02/19 21:29 99.7 04/02/19 20:59 118 115/77 04/02/19 20:00 100.5 112 20 111/81 (91) 97 04/02/19 16:00 98.3 118 20 115/77 (90) 97 04/02/19 12:00 99.4 121 23 112/75 (87) 97 Height (Feet): 5 Height (Inches): 7.00 Weight (Pounds): 111 General Appearance: no acute distress HEENT: mucous membranes moist Respiratory/Chest: lungs clear Cardiovascular: normal rate Abdomen: other - GT feeding Extremities: no edema Neurologic/Psychiatric: other - sleeping Microbiology Date/Time Source Procedure Growth Status 04/01/19 11:15 Stool Clostridium difficile Toxin Assay - Final Complete Current Medications Medications (Trade) Dose Ordered Sig/Yohannes Route PRN Reason Start Time Stop Time Status Last Admin Dose Admin Acetaminophen (Tylenol) 650 mg Q6H PRN GT Mild Pain/Temp > 100.5 03/23/19 19:00 04/20/19 18:59 04/02/19 20:59 Bisacodyl (Dulcolax) 10 mg DAILY PRN RECTAL Constipation 03/23/19 19:00 04/22/19 18:59 Docusate Sodium (Colace) 100 mg TID GT 04/01/19 13:00 04/23/19 08:59 Lansoprazole (Prevacid) 30 mg DAILY GT 03/27/19 15:15 04/26/19 15:14 04/03/19 09:03 Levetiracetam (Keppra) 1,000 mg Q12HR ORAL 03/23/19 21:00 04/20/19 08:59 04/03/19 09:03 Loperamide HCl (Imodium) 2 mg Q6H PRN GT Diarrhea 04/01/19 12:15 05/01/19 12:14 04/03/19 06:24 Metoprolol Tartrate (Lopressor) 50 mg Q12HR GT 03/29/19 21:00 04/26/19 20:59 04/03/19 09:03 Metronidazole (Flagyl) 500 mg Q8HR GT 04/01/19 14:00 04/08/19 13:59 04/03/19 05:36 Polyethylene Glycol (Miralax) 17 gm DAILY NG 03/24/19 09:00 04/20/19 08:59 03/29/19 09:26 Sennosides (Senokot) 17.2 mg BEDTIME GT 04/01/19 21:00 04/20/19 20:59 Yash Shay MD Apr 03, 2019 10:08
[2019-04-03 12:00] VITALS: BP 120/68
--- NOTE | 2019-04-03 14:45 | Nephrology Progress Note ---
Assessment/Plan Problem List: (1) Acute renal failure (2) Acute prerenal azotemia Assessment: dehydration (3) Dehydration (4) Seizure disorder (5) Anoxic brain injury (6) Sepsis (7) Hypercalcemia Assessment Renal failure: Dehydration Hypernatremia, Free water deficit Sepsis Acute metabolic encephalopathy PEG Sz disorder HTN Plan lowering Cr High Vanco level , now lowering One dose Aredia for high Ca- Calcium now in range- IV adjusted. K and Phos and Mag as needed monitor lytes GT feeding NS IV Fluids Coreg GT change to lopressor monitor electrolytes per orders Subjective ROS Limited/Unobtainable: Yes Objective Objective Last 24 Hour Vital Signs Date Time Temp Pulse Resp B/P (MAP) Pulse Ox O2 Delivery O2 Flow Rate FiO2 04/03/19 12:00 99.9 114 20 120/68 (85) 98 04/03/19 09:03 110 118/82 04/03/19 09:00 Room Air 04/03/19 08:54 110 04/03/19 08:00 99.9 123 20 118/82 (94) 97 04/03/19 04:00 97.7 115 20 107/71 (83) 96 04/03/19 00:00 99.7 110 22 114/78 (90) 97 04/02/19 23:28 Room Air 04/02/19 21:29 99.7 04/02/19 20:59 118 115/77 04/02/19 20:00 100.5 112 20 111/81 (91) 97 04/02/19 16:00 98.3 118 20 115/77 (90) 97 Intake and Output 04/02/19 04/03/19 19:00 07:00 Intake Total 820 ml 640 ml Balance 820 ml 640 ml Free Water 100 ml 100 ml Tube Feeding 720 ml 540 ml Height (Feet): 5 Height (Inches): 7.00 Weight (Pounds): 111 General Appearance: no apparent distress Objective no change Janes Barros MD Apr 03, 2019 14:45
[2019-04-03 15:57] VITALS: BP 121/75
--- NOTE | 2019-04-03 17:37 | Neurology Progress Note ---
Interim History Interim History ROS Limited/Unobtainable: Yes Complaints: AMS Events: This visit was performed on April 03, [address] Jin Interim History Febrile and tachycardic with increasing WBCs. Review of Systems Neuro Review of Systems Exam unchanged but fevers/ leukocytosis remain. All Systems: reviewed and negative except above Objective Physical Exam Last Vital Signs Date Time Temp Pulse Resp B/P (MAP) Pulse Ox O2 Delivery O2 Flow Rate FiO2 04/03/19 15:57 99.0 121 21 121/75 (90) 95 04/03/19 09:00 Room Air 03/27/19 08:06 21 General: well developed, well nourished Head: normocophalic Neck: other EENT: benign, other Neurologic Exam Mental Status: other Speech: other Language: other Cranial Nerve II: fundus normal, visual roberts, no papilledema, other Cranial Nerves III, IV, : PERRLA, EOMI, other Cranial Nerve V: other Cranial Nerve VII: other Cranial Nerve VIII: other Cranial Nerve IX: other Cranial Nerve X: other Cranial Nerve XI: other Cranial Nerve XII: other Motor System: other Sensory: other Coordination: other - Patient has tracheostomy scar at throat, is tracking intermittently with his eyes, he doesn't follow commands, has rigid tone and spasticity in all extremities and triple flexes in LEs bilaterally with mild decerebrate posturing in UEs on noxious stim. Deep Tendon Reflexes: 1+ bicep (L), 1+ bicep (R), 1+ tricep (L), 1+ tricep (R) , 1+ brachioradialis (L), 1+ brachioradialis (R), 1+ knee (L), 1+ knee (R), 1+ ankle (L), 1+ ankle (R) Reflexes: flexor plantar (L), flexor plantar (R); extensor plantar (L), extensor plantar (R) Objective Patient has tracheostomy scar at throat, is tracking intermittently with his eyes, he doesn't follow commands, has rigid tone and spasticity in all extremities and triple flexes in LEs bilaterally with mild decerebrate posturing in UEs on noxious stim. He has nystagmus on gaze at rest bilaterally - He is much more alert still with fever now. Impression/Recommendations Problems: (1) Seizure disorder (2) Anoxic brain injury (3) Sepsis (4) Acute hypernatremia (5) Dehydration (6) Encephalopathy due to metabolic factor or toxin (7) Acute metabolic encephalopathy (8) Weakness generalized (9) Schizoaffective disorder Status: not improved, unchanged, fever Diagnostic Impression Central Fevers secondary to severe cerebral dysfunction are a possibility but do not explain his leukocytosis. No apparent focal or generalized seizure activity at this time or seen on EEG. Recommendations Q4 Hour obs Na 135-145 = water flushes to PEG feeding schedule Telemetry monitoring Maintain normothermia with Tylenol and cooling blanket - Consider regular scheduled meds Abx as per ID Please consider NS instead of D5 IV fluid Maintain normoglycemia with ISS SBP<140 Continue Keppra 1000 mg BID - Ativan 1mg PRN for seizure Replete/ Replace lytes Cultures Negative Chey Long N.P. Apr 03, 2019 17:37
--- NOTE | 2019-04-03 17:38 | Neurology Progress Note ---
Interim History Interim History ROS Limited/Unobtainable: Yes Complaints: AMS Events: This visit was performed on April 03, [address] Jin Objective Physical Exam Last Vital Signs Date Time Temp Pulse Resp B/P (MAP) Pulse Ox O2 Delivery O2 Flow Rate FiO2 04/03/19 15:57 99.0 121 21 121/75 (90) 95 04/03/19 09:00 Room Air 03/27/19 08:06 21 General: well developed, well nourished Head: normocophalic Neck: other EENT: benign, other Neurologic Exam Mental Status: other Speech: other Language: other Cranial Nerve II: fundus normal, visual roberts, no papilledema, other Cranial Nerves III, IV, : PERRLA, EOMI, other Cranial Nerve V: other Cranial Nerve VII: other Cranial Nerve VIII: other Cranial Nerve IX: other Cranial Nerve X: other Cranial Nerve XI: other Cranial Nerve XII: other Motor System: other Sensory: other Coordination: other - Patient has tracheostomy scar at throat, is tracking intermittently with his eyes, he doesn't follow commands, has rigid tone and spasticity in all extremities and triple flexes in LEs bilaterally with mild decerebrate posturing in UEs on noxious stim. Deep Tendon Reflexes: 1+ bicep (L), 1+ bicep (R), 1+ tricep (L), 1+ tricep (R) , 1+ brachioradialis (L), 1+ brachioradialis (R), 1+ knee (L), 1+ knee (R), 1+ ankle (L), 1+ ankle (R) Reflexes: flexor plantar (L), flexor plantar (R); extensor plantar (L), extensor plantar (R) Objective Patient has tracheostomy scar at throat, is tracking intermittently with his eyes, he doesn't follow commands, has rigid tone and spasticity in all extremities and triple flexes in LEs bilaterally with mild decerebrate posturing in UEs on noxious stim. He has nystagmus on gaze at rest bilaterally - He is much more alert still with fever now. Impression/Recommendations Problems: (1) Seizure disorder (2) Anoxic brain injury (3) Sepsis (4) Acute hypernatremia (5) Dehydration (6) Encephalopathy due to metabolic factor or toxin (7) Acute metabolic encephalopathy (8) Weakness generalized (9) Schizoaffective disorder Status: not improved, unchanged, fever Recommendations Q4 Hour obs Na 135-145 = water flushes to PEG feeding schedule Telemetry monitoring Maintain normothermia with Tylenol and cooling blanket Abx as per ID Please consider NS instead of D5 IV fluid Maintain normoglycemia with ISS SBP<140 Continue Keppra 1000 mg BID - Ativan 1mg PRN for seizure Replete/ Replace lytes Cultures Negative DDimer? Chey Long N.P. Apr 03, 2019 17:38
[2019-04-03 20:00] VITALS: BP 123/78
[2019-04-03] MEDS: Sennosides 8.6mg tab GT SCH (21:00)
[2019-04-03] MEDS: Acetaminophen 650mg/20.3ml GT PRN (21:31)
--- NOTE | 2019-04-03 21:53 | General Progress Note ---
Assessment/Plan Problem List: (1) Schizoaffective disorder ICD Codes: F25.9 - Schizoaffective disorder, unspecified SNOMED: 57012341 (2) Seizure disorder ICD Codes: G40.909 - Epilepsy, unspecified, not intractable, without status epilepticus SNOMED: 871076334 (3) Dehydration ICD Codes: E86.0 - Dehydration SNOMED: 43664361, 388343590 (4) Sepsis ICD Codes: A41.9 - Sepsis, unspecified organism SNOMED: 90861578, 928060977 Qualifiers: Qualified Codes: A41.9 - Sepsis, unspecified organism (5) Acute metabolic encephalopathy ICD Codes: G93.41 - Metabolic encephalopathy SNOMED: 56054969, 248881243 Status: progressing, not improved, unchanged, fever Assessment/Plan: gastroparesis sepsis diarrhea improved peg feeding per gi dehydration improving reviewed chart and labs' abx per id dc planning Subjective ROS Limited/Unobtainable: Yes Allergies: Coded Allergies: No Known Allergies (Unverified , 08/20/18) Objective Last 24 Hour Vital Signs Date Time Temp Pulse Resp B/P (MAP) Pulse Ox O2 Delivery O2 Flow Rate FiO2 04/03/19 21:30 137 123/78 04/03/19 20:01 Room Air 04/03/19 20:00 101.8 137 21 123/78 (93) 96 04/03/19 15:57 99.0 121 21 121/75 (90) 95 04/03/19 12:00 99.9 114 20 120/68 (85) 98 04/03/19 09:03 110 118/82 04/03/19 09:00 Room Air 04/03/19 08:54 110 04/03/19 08:00 99.9 123 20 118/82 (94) 97 04/03/19 04:00 97.7 115 20 107/71 (83) 96 04/03/19 00:00 99.7 110 22 114/78 (90) 97 04/02/19 23:28 Room Air Intake and Output 04/02/19 04/03/19 19:00 07:00 Intake Total 820 ml 700 ml Balance 820 ml 700 ml Free Water 100 ml 100 ml Tube Feeding 720 ml 600 ml Height (Feet): 5 Height (Inches): 7.00 Weight (Pounds): 111 Cardiovascular: normal rate Respiratory/Chest: lungs clear Abdomen: soft Lenin Wyatt MD Apr 03, 2019 21:52
[2019-04-04] VITALS (7 sets, daily range): BP systolic 106–132; BP diastolic 74–86
[2019-04-04] MEDS: metroNIDAZOLE 500mg tab GT SCH (05:19)
[2019-04-04] MEDS: Acetaminophen 650mg/20.3ml GT PRN ×2 (05:20→21:09)
[2019-04-04] MEDS: levETIRAcetam 500mg/5ml Liquid ORAL SCH ×2 (08:15→21:09)
[2019-04-04] MEDS: Miralax 17gm pkt NG SCH (08:15)
[2019-04-04] MEDS: Docusate 100mg/10ml Liq GT SCH ×3 (08:15→18:38)
[2019-04-04] MEDS: Metoprolol Tartrate 50mg tab GT SCH ×4 (08:29→22:00)
--- NOTE | 2019-04-04 10:08 | GI Progress Note ---
Assessment/Plan Problems: (1) Feeding by G-tube ICD Codes: Z93.1 - Gastrostomy status SNOMED: 530547695, 637089334, 339801342 (2) Dysphagia ICD Codes: R13.10 - Dysphagia, unspecified SNOMED: 57327252, 996807965 (3) Anemia ICD Codes: D64.9 - Anemia, unspecified SNOMED: 283746267 (4) Diarrhea ICD Codes: R19.7 - Diarrhea, unspecified SNOMED: 22517841 (5) SBO (small bowel obstruction) ICD Codes: K56.609 - Unspecified intestinal obstruction, unspecified as to partial versus complete obstruction SNOMED: 744909701 (6) Anoxic brain injury ICD Codes: G93.1 - Anoxic brain damage, not elsewhere classified SNOMED: 117845364 (7) Dehydration ICD Codes: E86.0 - Dehydration SNOMED: 57971894, 202453585 Status: unchanged Status Narrative Discussed with Dr. Ospina Assessment/Plan no SBO per X ray and exam C. difficile negative GTF as tolerated to 60 cc Stop all stool softeners and laxatives Imodium as needed PPI Electrolyte correction Reglan as needed for GI motility fu labs The patient was seen and examined at bedside and all new and available data was reviewed in the patients chart. I agree with the above findings, impression and plan. (Patient seen earlier today. Signature stamp does not reflect patient encounter time.). - Ruddy Ospina MD Subjective Subjective Limited Objective Last 24 Hour Vital Signs Date Time Temp Pulse Resp B/P (MAP) Pulse Ox O2 Delivery O2 Flow Rate FiO2 04/04/19 08:29 131 126/83 04/04/19 05:50 101.5 04/04/19 04:00 101.2 120 22 120/81 (94) 96 04/04/19 00:00 101.8 116 20 110/74 (86) 95 04/03/19 21:30 137 123/78 04/03/19 20:01 Room Air 04/03/19 20:00 101.8 137 21 123/78 (93) 96 04/03/19 15:57 99.0 121 21 121/75 (90) 95 04/03/19 12:00 99.9 114 20 120/68 (85) 98 Intake and Output 04/03/19 04/04/19 18:59 06:59 Intake Total 920 ml 870 ml Output Total 650 ml Balance 920 ml 220 ml Free Water 200 ml 150 ml Tube Feeding 720 ml 720 ml Output Urine Total 650 ml # Voids 1 Height (Feet): 5 Height (Inches): 7.00 Weight (Pounds): 111 General Appearance: WD/WN, no apparent distress, alert Cardiovascular: normal rate Respiratory/Chest: normal breath sounds, no respiratory distress Abdominal Exam: normal bowel sounds, non tender, soft, GT site - Clean dry and intact Extremities: non-tender Objective Reported diarrhea Alvaro Ybarra NP Apr 04, 2019 10:08
--- NOTE | 2019-04-04 12:21 | Nephrology Progress Note ---
Assessment/Plan Problem List: (1) Acute renal failure (2) Acute prerenal azotemia Assessment: dehydration (3) Dehydration (4) Seizure disorder (5) Anoxic brain injury (6) Sepsis (7) Hypercalcemia Assessment Renal failure: Dehydration Hypernatremia, Free water deficit Sepsis Acute metabolic encephalopathy PEG Sz disorder HTN Plan lowering Cr High Vanco level , now lowering One dose Aredia for high Ca- Calcium now in range- IV adjusted. K and Phos and Mag as needed monitor lytes GT feeding NS IV Fluids Coreg GT change to lopressor monitor electrolytes per orders Subjective ROS Limited/Unobtainable: No Objective Objective Last 24 Hour Vital Signs Date Time Temp Pulse Resp B/P (MAP) Pulse Ox O2 Delivery O2 Flow Rate FiO2 04/04/19 09:00 Room Air 04/04/19 08:29 131 126/83 04/04/19 08:00 98.5 125 18 126/83 (97) 98 04/04/19 05:50 101.5 04/04/19 04:00 101.2 120 22 120/81 (94) 96 04/04/19 00:00 101.8 116 20 110/74 (86) 95 04/03/19 21:30 137 123/78 04/03/19 20:01 Room Air 04/03/19 20:00 101.8 137 21 123/78 (93) 96 04/03/19 15:57 99.0 121 21 121/75 (90) 95 Intake and Output 04/03/19 04/04/19 18:59 06:59 Intake Total 920 ml 870 ml Output Total 650 ml Balance 920 ml 220 ml Free Water 200 ml 150 ml Tube Feeding 720 ml 720 ml Output Urine Total 650 ml # Voids 1 Current Medications Medications (Trade) Dose Ordered Sig/Yohannes Route PRN Reason Start Time Stop Time Status Last Admin Dose Admin Acetaminophen (Tylenol) 650 mg Q6H PRN GT Mild Pain/Temp > 100.5 03/23/19 19:00 04/20/19 18:59 04/04/19 05:20 Bisacodyl (Dulcolax) 10 mg DAILY PRN RECTAL Constipation 03/23/19 19:00 04/22/19 18:59 Docusate Sodium (Colace) 100 mg TID GT 04/01/19 13:00 6/29/19 08:59 04/04/19 08:15 Lansoprazole (Prevacid) 30 mg DAILY GT 03/27/19 15:15 04/26/19 15:14 04/04/19 08:15 Levetiracetam (Keppra) 1,000 mg Q12HR ORAL 03/23/19 21:00 04/20/19 08:59 04/04/19 08:15 Loperamide HCl (Imodium) 2 mg Q6H PRN GT Diarrhea 04/01/19 12:15 05/01/19 12:14 04/03/19 06:24 Metoprolol Tartrate (Lopressor) 50 mg Q12HR GT 03/29/19 21:00 04/26/19 20:59 04/04/19 08:29 Metronidazole (Flagyl) 500 mg Q8HR GT 04/01/19 14:00 04/08/19 13:59 04/04/19 05:19 Polyethylene Glycol (Miralax) 17 gm DAILY NG 03/24/19 09:00 04/20/19 08:59 04/04/19 08:15 Sennosides (Senokot) 17.2 mg BEDTIME GT 04/01/19 21:00 04/20/19 20:59 Height (Feet): 5 Height (Inches): 7.00 Weight (Pounds): 111 General Appearance: no apparent distress Cardiovascular: tachycardia Respiratory/Chest: decreased breath sounds Abdomen: soft Objective no change Janes Barros MD Apr 04, 2019 12:21
--- NOTE | 2019-04-04 12:36 | Infectious Diseases Prog Note ---
Assessment/Plan Assessment/Plan IMPRESSION: 1. Fever,? FUO 2. Leukocytosis 3. Tachycardia. 4. He has anoxic encephalopathy. 5. MRSA colonization. 6. Hypernatremia and azotemia. 7. Seizure disorder. 8. Hypertension. 9. Small bowel obstruction versus enteritis 10. Diarrhea, c.difficile test negative RECOMMENDATION: Discontinue Flagyl by GT Start on Meropenem Repeat Blood culture CT scan of abdomen & pelvis with contrast Subjective ROS Limited/Unobtainable: Yes Constitutional: Reports: fever Allergies: Coded Allergies: No Known Allergies (Unverified , 08/20/18) Objective Vital Signs Last 24 Hour Vital Signs Date Time Temp Pulse Resp B/P (MAP) Pulse Ox O2 Delivery O2 Flow Rate FiO2 04/04/19 09:00 Room Air 04/04/19 08:29 131 126/83 04/04/19 08:00 98.5 125 18 126/83 (97) 98 04/04/19 05:50 101.5 04/04/19 04:00 101.2 120 22 120/81 (94) 96 04/04/19 00:00 101.8 116 20 110/74 (86) 95 04/03/19 21:30 137 123/78 04/03/19 20:01 Room Air 04/03/19 20:00 101.8 137 21 123/78 (93) 96 04/03/19 15:57 99.0 121 21 121/75 (90) 95 Height (Feet): 5 Height (Inches): 7.00 Weight (Pounds): 111 HEENT: mucous membranes moist Respiratory/Chest: lungs clear Cardiovascular: tachycardia Abdomen: soft, non tender, other - GT feeding Extremities: no edema Neurologic/Psychiatric: aphasia, other - nystagmus Current Medications Medications (Trade) Dose Ordered Sig/Yohannes Route PRN Reason Start Time Stop Time Status Last Admin Dose Admin Acetaminophen (Tylenol) 650 mg Q6H PRN GT Mild Pain/Temp > 100.5 03/23/19 19:00 04/20/19 18:59 04/04/19 05:20 Bisacodyl (Dulcolax) 10 mg DAILY PRN RECTAL Constipation 03/23/19 19:00 04/22/19 18:59 Docusate Sodium (Colace) 100 mg TID GT 04/01/19 13:00 04/23/19 08:59 04/04/19 08:15 Lansoprazole (Prevacid) 30 mg DAILY GT 03/27/19 15:15 04/26/19 15:14 04/04/19 08:15 Levetiracetam (Keppra) 1,000 mg Q12HR ORAL 03/23/19 21:00 04/20/19 08:59 04/04/19 08:15 Loperamide HCl (Imodium) 2 mg Q6H PRN GT Diarrhea 04/01/19 12:15 05/01/19 12:14 04/03/19 06:24 Metoprolol Tartrate (Lopressor) 50 mg Q8HR GT 04/04/19 14:00 04/26/19 20:59 Metronidazole (Flagyl) 500 mg Q8HR GT 04/01/19 14:00 04/08/19 13:59 04/04/19 05:19 Polyethylene Glycol (Miralax) 17 gm DAILY NG 03/24/19 09:00 04/20/19 08:59 04/04/19 08:15 Sennosides (Senokot) 17.2 mg BEDTIME GT 04/01/19 21:00 04/20/19 20:59 Yash Shay MD Apr 04, 2019 12:35
[2019-04-04] MEDS ORDERED: Isovue-300 100ml vial INJ PRN ×2 (12:45→21:30)
[2019-04-04] MEDS ORDERED: Meropenem 1 GM in NS 55 ML IVPB SCH (14:00)
[2019-04-04] MEDS ORDERED: Meropenem 500 MG in NS 55 ML IVPB SCH (14:00)
--- NOTE | 2019-04-04 14:40 | Cardiac Electrophysiology PN ---
Assessment/Plan Assessment/Plan 1. Sinus tachycardia due to fever and severe dehydration. Continue Metoprolol 50 q8. EF 60%. 2. Hypertension. Continue Metoprolol 50 mg q8 3. Sepsis, on IV antibiotic per Dr. Shay. 4. Dysphagia, status post PEG 5. Anoxic brain injury and seizures. MRI brain negative for any acute findings 6. Acute renal failure and dehydration, resolved Cr 0.7 7. Possible SBO by CT abdomen. FU Dr Ospina. DW RN Subjective Subjective Nonverbal but alert. No major change Objective Last 24 Hour Vital Signs Date Time Temp Pulse Resp B/P (MAP) Pulse Ox O2 Delivery O2 Flow Rate FiO2 04/04/19 09:00 Room Air 04/04/19 08:29 131 126/83 04/04/19 08:00 98.5 125 18 126/83 (97) 98 04/04/19 05:50 101.5 04/04/19 04:00 101.2 120 22 120/81 (94) 96 04/04/19 00:00 101.8 116 20 110/74 (86) 95 04/03/19 21:30 137 123/78 04/03/19 20:01 Room Air 04/03/19 20:00 101.8 137 21 123/78 (93) 96 04/03/19 15:57 99.0 121 21 121/75 (90) 95 Intake and Output 04/03/19 04/04/19 19:00 07:00 Intake Total 920 ml 810 ml Output Total 650 ml Balance 920 ml 160 ml Free Water 200 ml 150 ml Tube Feeding 720 ml 660 ml Output Urine Total 650 ml # Voids 1 Objective HEAD AND NECK: No JVD. Old tracheostomy site closed. LUNGS: Coarse rhonchi. CARDIOVASCULAR: Tachy S1 and S2 with no gallop. ABDOMEN: Soft, status post G-tube. EXTREMITIES: No pitting edema. Jim Manjarrez MD Apr 04, 2019 14:40
[2019-04-04] MEDS: Sennosides 8.6mg tab GT SCH (21:00)
--- NOTE | 2019-04-04 21:44 | General Progress Note ---
Assessment/Plan Problem List: (1) Schizoaffective disorder ICD Codes: F25.9 - Schizoaffective disorder, unspecified SNOMED: 79700816 (2) Seizure disorder ICD Codes: G40.909 - Epilepsy, unspecified, not intractable, without status epilepticus SNOMED: 686917121 (3) Dehydration ICD Codes: E86.0 - Dehydration SNOMED: 86342193, 084462704 (4) Sepsis ICD Codes: A41.9 - Sepsis, unspecified organism SNOMED: 70165818, 080528796 Qualifiers: Qualified Codes: A41.9 - Sepsis, unspecified organism (5) Acute metabolic encephalopathy ICD Codes: G93.41 - Metabolic encephalopathy SNOMED: 99772389, 808374014 Status: unchanged Assessment/Plan: febrile and tachycardic getting worse encephalopathy gastroparesis sepsis diarrhea improved peg feeding per gi dehydration improving reviewed chart and labs' a Subjective ROS Limited/Unobtainable: Yes Allergies: Coded Allergies: No Known Allergies (Unverified , 08/20/18) Objective Last 24 Hour Vital Signs Date Time Temp Pulse Resp B/P (MAP) Pulse Ox O2 Delivery O2 Flow Rate FiO2 04/04/19 21:10 156 128/67 04/04/19 20:00 102.4 154 20 130/86 (101) 97 04/04/19 16:00 101.0 141 21 132/79 (96) 95 04/04/19 14:00 128 106/80 04/04/19 12:00 101.2 128 19 106/80 (89) 95 04/04/19 09:00 Room Air 04/04/19 08:29 131 126/83 04/04/19 08:00 98.5 125 18 126/83 (97) 98 04/04/19 05:50 101.5 04/04/19 04:00 101.2 120 22 120/81 (94) 96 04/04/19 00:00 101.8 116 20 110/74 (86) 95 Intake and Output 04/03/19 04/04/19 19:00 07:00 Intake Total 920 ml 810 ml Output Total 650 ml Balance 920 ml 160 ml Free Water 200 ml 150 ml Tube Feeding 720 ml 660 ml Output Urine Total 650 ml # Voids 1 Height (Feet): 5 Height (Inches): 7.00 Weight (Pounds): 111 Cardiovascular: normal rate Respiratory/Chest: lungs clear Lenin Wyatt MD Apr 04, 2019 21:44
[2019-04-04] MEDS: Meropenem 1 GM in NS 55 ML IVPB SCH (21:57)
--- NOTE | 2019-04-04 22:21 | Consultation ---
History of Present Illness General Date patient seen: Apr 04, 2019 Chief Complaint: Fever Referring physician: Dr. Lenin Howe Reason for Consultation: SBO Present Illness HPI 39 year old male with multiple medical comorbidities who is with full needs was noted to have abnormal CT scan concerning for possible SBO. since has been having loose stool and follow up KUB without acute process. Continues to have worsening fevers and tachycardia. Surgery called to evaluate and assist with care. patient seen, chart reviewed, patient examined. C diff negative. blood cultures negative. CXR okay. tube feeds okay. contrast in CT slow progression. Allergies: Coded Allergies: No Known Allergies (Unverified , 08/20/18) Medication History Scheduled Cyanocobalamin (Vitamin B-12)* (Vitamin B-12*), 1,000 MCG GT DAILY, (Reported) Docusate Sodium (Docu Liquid), 100 MG GT TWICE A DAY, (Reported) Donepezil Hcl* (Donepezil Hcl*), 10 MG GT DAILY, (Reported) Enoxaparin* (Lovenox*), 40 MG SUBQ DAILY, (Reported) Folic Acid* (Folic Acid*), 1 MG GT DAILY, (Reported) Levetiracetam* (Levetiracetam*), 10 ML GT BID, (Reported) Polyethylene Glycol 3350* (Miralax*), 17 GM GT DAILY, (Reported) Sennosides* (Sennosides*), 17.2 MG GT QHS, (Reported) Thiamine Hcl* (Vitamin B-1*), 100 MG GT DAILY, (Reported) Scheduled PRN Acetaminophen* (Acetaminophen 325MG Tablet*), 650 MG GT Q6H PRN for For Pain, ( Reported) Bisacodyl (Bisacodyl), 10 MG RC Q24HR PRN for Constipation, (Reported) Ipratropium/Albuterol Sulfate (DuoNeb 0.5-3(2.5)mg/3ml), 3 ML HHN Q4HR PRN for Shortness of Breath, (Reported) Magnesium Hydroxide* (Milk Of Magnesia*), 30 ML GT DAILY PRN for Constipation, ( Reported) Patient History Limited by: medical condition History Provided By: Medical Record, PMD Healthcare decision maker Resuscitation status Do Not Resuscitate Advanced Directive on File Past Medical/Surgical History Past Medical/Surgical History: (1) Acute prerenal azotemia (2) Weakness generalized (3) Schizoaffective disorder (4) Acute hypernatremia (5) Dehydration (6) Seizure disorder (7) Sepsis (8) Anoxic brain injury (9) Encephalopathy due to metabolic factor or toxin (10) Acute metabolic encephalopathy (11) Acute renal failure (12) Hypercalcemia (13) Diarrhea (14) SBO (small bowel obstruction) (15) Anemia (16) Dysphagia (17) Feeding by G-tube Review of Systems ROS Narrative cannot obtain given medical condition Physical Exam General Appearance: no apparent distress Lines, tubes and drains: other HEENT: other Neck: other Respiratory/Chest: other Cardiovascular/Chest: tachycardia Abdomen: soft, no organomegaly, no mass, feeding tube Extremities: normal inspection Skin Exam: warm/dry Neurologic: other Last 24 Hour Vital Signs Date Time Temp Pulse Resp B/P (MAP) Pulse Ox O2 Delivery O2 Flow Rate FiO2 04/04/19 21:10 156 128/67 04/04/19 20:00 102.4 154 20 130/86 (101) 97 04/04/19 16:00 101.0 141 21 132/79 (96) 95 04/04/19 14:00 128 106/80 04/04/19 12:00 101.2 128 19 106/80 (89) 95 04/04/19 09:00 Room Air 04/04/19 08:29 131 126/83 04/04/19 08:00 98.5 125 18 126/83 (97) 98 04/04/19 05:50 101.5 04/04/19 04:00 101.2 120 22 120/81 (94) 96 04/04/19 00:00 101.8 116 20 110/74 (86) 95 Intake and Output 04/03/19 04/04/19 19:00 07:00 Intake Total 920 ml 810 ml Output Total 650 ml Balance 920 ml 160 ml Free Water 200 ml 150 ml Tube Feeding 720 ml 660 ml Output Urine Total 650 ml # Voids 1 Height (Feet): 5 Height (Inches): 7.00 Weight (Pounds): 111 Medications Current Medications Medications (Trade) Dose Ordered Sig/Yohannes Route PRN Reason Start Time Stop Time Status Last Admin Dose Admin Acetaminophen (Tylenol) 650 mg Q6H PRN GT Mild Pain/Temp > 100.5 04/05/19 03:00 04/20/19 02:59 Barium Sulfate (Readi-Cat 2) 450 ml NOW PRN ORAL Radiology Procedure 04/04/19 21:30 04/06/19 21:29 Bisacodyl (Dulcolax) 10 mg DAILY PRN RECTAL Constipation 04/05/19 09:00 04/22/19 18:59 Docusate Sodium (Colace) 100 mg TID GT 04/05/19 09:00 04/23/19 08:59 Iopamidol (Isovue-300 100ml) 100 ml NOW PRN INJ Radiology Procedure 04/04/19 21:30 04/06/19 21:29 Lansoprazole (Prevacid) 30 mg DAILY GT 04/05/19 09:00 04/26/19 15:14 Levetiracetam (Keppra) 1,000 mg Q12HR ORAL 04/05/19 09:00 04/20/19 08:59 Loperamide HCl (Imodium) 2 mg Q6H PRN GT Diarrhea 04/04/19 21:30 05/04/19 21:29 Meropenem 1 gm/ Sodium Chloride 55 ml @ 110 mls/hr EVERY 8 HOURS IVPB 04/04/19 22:00 04/09/19 13:59 04/04/19 21:57 Metoprolol Tartrate (Lopressor) 50 mg Q8HR GT 04/04/19 22:00 04/26/19 20:59 Polyethylene Glycol (Miralax) 17 gm DAILY NG 04/05/19 09:00 04/20/19 08:59 Sennosides (Senokot) 17.2 mg BEDTIME GT 04/05/19 21:00 04/20/19 20:59 Assessment/Plan Problem List: (1) Acute prerenal azotemia ICD Codes: R79.89 - Other specified abnormal findings of blood chemistry SNOMED: 101828741 (2) Weakness generalized ICD Codes: R53.1 - Weakness SNOMED: 02296924 (3) Schizoaffective disorder ICD Codes: F25.9 - Schizoaffective disorder, unspecified SNOMED: 01077505 (4) Acute hypernatremia ICD Codes: E87.0 - Hyperosmolality and hypernatremia SNOMED: 4262352, 613489308 (5) Dehydration ICD Codes: E86.0 - Dehydration SNOMED: 31600634, 092794039 (6) Seizure disorder ICD Codes: G40.909 - Epilepsy, unspecified, not intractable, without status epilepticus SNOMED: 486243662 (7) Sepsis Assessment & Plan: febrile, tachycardia, leukocytosis etiology unknown exam without significant pathology cultures negative thus far cxr okay ct noted -US abd ordered -trend labs venous duplex studies will follow with recs thank you ICD Codes: A41.9 - Sepsis, unspecified organism SNOMED: 55738969, 718578613 Qualifiers: Qualified Codes: A41.9 - Sepsis, unspecified organism (8) Anoxic brain injury ICD Codes: G93.1 - Anoxic brain damage, not elsewhere classified SNOMED: 216915638 (9) Encephalopathy due to metabolic factor or toxin SNOMED: 649350281 (10) Acute metabolic encephalopathy ICD Codes: G93.41 - Metabolic encephalopathy SNOMED: 22153681, 505684570 (11) Acute renal failure ICD Codes: N17.9 - Acute kidney failure, unspecified SNOMED: 13382275 (12) Hypercalcemia ICD Codes: E83.52 - Hypercalcemia SNOMED: 79955342 (13) Diarrhea ICD Codes: R19.7 - Diarrhea, unspecified SNOMED: 76262857 (14) SBO (small bowel obstruction) Assessment & Plan: CT with Ingested contrast is traversed only a short distance into the small bowel. There is diffuse mild dilatation of the proximal to mid small bowel, collapsed distal small bowel loops. Uncertain point of transition although probably in the lower mid abdomen/upper pelvis. There is only minimal forward transit of contrast There is mild distention of the distal sigmoid and rectum by what appears to be fluid contents. No downstream obstructive lesion demonstrated. There is colonic diverticulosis. The appendix is normal. No free or loculated intraperitoneal gas or fluid is evident. There is edema of the presacral fat. There are surgical clips in the anterior gastric wall. There is a gastrostomy in appropriate position in the gastric body. The distal esophagus and duodenum are unremarkable. Lack of IV contrast limits assessment of the solid organs. Liver, gallbladder, bile ducts, pancreas, spleen, adrenals are unremarkable. 1 cm exophytic cyst comes off of the pole region of the left kidney, as well as a smaller exophytic subcentimeter low-attenuation lesion which is too small to characterize. There is also a very subtle 2 cm fluid attenuation cyst coming off of the lower pole. The right kidney is unremarkable. No pelvic mass or adenopathy. follow up KUB without pathology now with loose stools c diff negative appreciate GI input okay for tube feeds as above thank you ICD Codes: K56.609 - Unspecified intestinal obstruction, unspecified as to partial versus complete obstruction SNOMED: 136581285 (15) Anemia ICD Codes: D64.9 - Anemia, unspecified SNOMED: 081078092 (16) Dysphagia ICD Codes: R13.10 - Dysphagia, unspecified SNOMED: 54817774, 152976574 (17) Feeding by G-tube ICD Codes: Z93.1 - Gastrostomy status SNOMED: 444126508, 085149674, 820548113 Sean Thornton Apr 04, 2019 22:21
--- NOTE | 2019-04-04 23:42 | Neurology Progress Note ---
Interim History Interim History ROS Limited/Unobtainable: Yes Complaints: AMS Events: This visit was performed on April 04, [address] Jin Interim History Febrile, tachycardic, leukocytosis ongoing Very diaphoretic on exam Exam unchanged. Review of Systems All Systems: reviewed and negative except above Objective Physical Exam Last Vital Signs Date Time Temp Pulse Resp B/P (MAP) Pulse Ox O2 Delivery O2 Flow Rate FiO2 04/04/19 21:39 100.0 04/04/19 21:10 156 128/67 04/04/19 21:00 28 97 04/04/19 09:00 Room Air 03/27/19 08:06 21 Laboratory Tests Test 04/04/19 22:50 Activated Partial Thromboplast Time Pending General: well developed, well nourished Head: normocophalic Neck: other EENT: benign, other Neurologic Exam Mental Status: other Speech: other Language: other Cranial Nerve II: fundus normal, visual roberts, no papilledema, other Cranial Nerves III, IV, : PERRLA, EOMI, other Cranial Nerve V: other Cranial Nerve VII: other Cranial Nerve VIII: other Cranial Nerve IX: other Cranial Nerve X: other Cranial Nerve XI: other Cranial Nerve XII: other Motor System: other Sensory: other Coordination: other - Patient has tracheostomy scar at throat, is tracking intermittently with his eyes, he doesn't follow commands, has rigid tone and spasticity in all extremities and triple flexes in LEs bilaterally with mild decerebrate posturing in UEs on noxious stim. Deep Tendon Reflexes: 1+ bicep (L), 1+ bicep (R), 1+ tricep (L), 1+ tricep (R) , 1+ brachioradialis (L), 1+ brachioradialis (R), 1+ knee (L), 1+ knee (R), 1+ ankle (L), 1+ ankle (R) Reflexes: flexor plantar (L), flexor plantar (R); extensor plantar (L), extensor plantar (R) Objective Patient has tracheostomy scar at throat, is tracking intermittently with his eyes, he doesn't follow commands, has rigid tone and spasticity in all extremities and triple flexes in LEs bilaterally with mild decerebrate posturing in UEs on noxious stim. He has nystagmus on gaze at rest bilaterally - He is much more alert still with fever now. Impression/Recommendations Problems: (1) Seizure disorder (2) Anoxic brain injury Assessment & Plan: Central Fevers may explain ongoing hyperthermia given diffuse encephalomalacia of patient's brain but do not explain leukocytosis. (3) Sepsis (4) Acute hypernatremia (5) Dehydration (6) Encephalopathy due to metabolic factor or toxin (7) Acute metabolic encephalopathy (8) Weakness generalized (9) Schizoaffective disorder (10) Dysphagia (11) Feeding by G-tube (12) Diarrhea (13) Hypercalcemia (14) Acute renal failure Status: unchanged Recommendations Q4 Hour obs Na 135-145 = water flushes to PEG feeding schedule Telemetry monitoring Maintain normothermia with Tylenol and cooling blanket Abx as per ID Please consider NS instead of D5 IV fluid Maintain normoglycemia with ISS SBP<140 Continue Keppra 1000 mg BID - Ativan 1mg PRN for seizure Replete/ Replace lytes Cultures Negative Chey Long N.P. Apr 04, 2019 23:42
[2019-04-05] VITALS: BP 113/66
[2019-04-05] MEDS: Acetaminophen 650mg/20.3ml GT PRN ×2 (03:58→20:28)
[2019-04-05 04:00] VITALS: BP 131/79
[2019-04-05 05:46] LABS: BASOPHILS % (AUTO) 1.1 % (0.0-2.0); EOSINOPHILS % (AUTO) 0.1 % (0.0-3.0); HEMATOCRIT 36.6 % (42.0-52.0); HEMOGLOBIN 12.4 G/DL (14.2-18.0); LYMPHOCYTES % (AUTO) 17.6 % (20.0-45.0); MEAN CORPUSCULAR VOLUME 88 FL (80-99); MONOCYTES % (AUTO) 6.7 % (1.0-10.0); NEUTROPHILS % (AUTO) 74.5 % (45.0-75.0); PLATELET COUNT 494 K/UL (150-450); RED BLOOD COUNT 4.17 M/UL (4.70-6.10); RED CELL DISTRIBUTION WIDTH 12.2 % (11.6-14.8); WHITE BLOOD COUNT 16.8 K/UL (4.8-10.8)
[2019-04-05] MEDS: Metoprolol Tartrate 50mg tab GT SCH ×3 (05:50→22:07)
[2019-04-05] MEDS: Meropenem 1 GM in NS 55 ML IVPB SCH ×3 (05:51→22:07)
[2019-04-05 06:14] LABS: APPEARANCE,URINE CLEAR; BILIRUBIN, URINE NEGATIVE (NEGATIVE); COLOR,URINE PALE YELLOW; GLUCOSE, URINE (UA) NEGATIVE (NEGATIVE); KETONES,URINE NEGATIVE (NEGATIVE); LEUKOCYTE ESTERASE ,URINE 1+ (NEGATIVE); NITRITE,URINE NEGATIVE (NEGATIVE); PH,URINE 5 (4.5-8.0); PROTEIN,URINE 2+ (NEGATIVE); UROBILINOGEN,URINE NORMAL MG/DL (0.0-1.0)
[2019-04-05 06:27] LABS: AMYLASE 29 U/L (25-115)
[2019-04-05 08:00] VITALS: BP 120/81
[2019-04-05 08:18] LABS: ALANINE AMINOTRANSFERASE 39 U/L (12-78); ALBUMIN 2.6 G/DL (3.4-5.0); ALBUMIN/GLOBULIN RATIO 0.5 (1.0-2.7); ALKALINE PHOSPHATASE 84 U/L (46-116); ANION GAP 16 mmol/L (5-15); ASPARTATE AMINO TRANSFERASE 24 U/L (15-37); BILIRUBIN,TOTAL 0.3 MG/DL (0.2-1.0); BLOOD UREA NITROGEN 22 mg/dL (7-18); CALCIUM 8.6 MG/DL (8.5-10.1); CARBON DIOXIDE 19 MMOL/L (21-32); CHLORIDE 114 MMOL/L (98-107); CREATININE 0.8 MG/DL (0.55-1.30); PHOSPHORUS 1.7 MG/DL (2.5-4.9); POTASSIUM 3.7 MMOL/L (3.5-5.1); SODIUM 149 MMOL/L (136-145)
[2019-04-05] MEDS: Docusate 100mg/10ml Liq GT SCH ×3 (09:00→17:30)
[2019-04-05] MEDS: Miralax 17gm pkt NG SCH (09:00)
[2019-04-05] MEDS: levETIRAcetam 500mg/5ml Liquid ORAL SCH ×2 (09:02→20:27)
--- NOTE | 2019-04-05 10:15 | GI Progress Note ---
Assessment/Plan Problems: (1) Feeding by G-tube ICD Codes: Z93.1 - Gastrostomy status SNOMED: 879394100, 683366028, 216232842 (2) Dysphagia ICD Codes: R13.10 - Dysphagia, unspecified SNOMED: 19801478, 920326417 (3) Anemia ICD Codes: D64.9 - Anemia, unspecified SNOMED: 239146512 (4) Diarrhea ICD Codes: R19.7 - Diarrhea, unspecified SNOMED: 44526389 (5) SBO (small bowel obstruction) ICD Codes: K56.609 - Unspecified intestinal obstruction, unspecified as to partial versus complete obstruction SNOMED: 223183977 (6) Anoxic brain injury ICD Codes: G93.1 - Anoxic brain damage, not elsewhere classified SNOMED: 495061359 (7) Dehydration ICD Codes: E86.0 - Dehydration SNOMED: 75541320, 125046661 Status: unchanged Status Narrative Discussed with Dr. Ospina. Assessment/Plan no SBO per X ray and exam C. difficile negative GTF as tolerated to 60 cc Stop all stool softeners and laxatives Imodium as needed PPI Electrolyte correction Reglan as needed for GI motility fu labs The patient was seen and examined at bedside and all new and available data was reviewed in the patients chart. I agree with the above findings, impression and plan. (Patient seen earlier today. Signature stamp does not reflect patient encounter time.). - Ruddy Ospina MD Subjective Subjective Limited Objective Last 24 Hour Vital Signs Date Time Temp Pulse Resp B/P (MAP) Pulse Ox O2 Delivery O2 Flow Rate FiO2 04/05/19 05:50 140 131/79 04/05/19 04:00 139 04/05/19 04:00 Nasal Cannula 2.0 04/05/19 04:00 100.0 140 24 131/79 (96) 99 04/05/19 00:00 99.1 129 24 113/66 (82) 98 04/05/19 00:00 129 04/05/19 00:00 Nasal Cannula 2.0 04/04/19 21:39 100.0 04/04/19 21:10 156 128/67 04/04/19 21:00 Nasal Cannula 2.0 04/04/19 21:00 102.4 159 28 127/83 (98) 97 04/04/19 20:00 102.4 154 20 130/86 (101) 97 04/04/19 16:00 101.0 141 21 132/79 (96) 95 04/04/19 14:00 128 106/80 04/04/19 12:00 101.2 128 19 106/80 (89) 95 Intake and Output 04/04/19 04/05/19 18:59 06:59 Intake Total 530 ml Output Total 450 ml Balance 80 ml IV Total 110 ml Tube Feeding 420 ml Output Urine Total 450 ml # Bowel Movements 2 Laboratory Tests Test 04/04/19 22:50 04/05/19 03:10 04/05/19 04:30 Activated Partial Thromboplast Time 28 SEC (23-33) 28 SEC (23-33) White Blood Count 16.8 K/UL (4.8-10.8) H Red Blood Count 4.17 M/UL (4.70-6.10) L Hemoglobin 12.4 G/DL (14.2-18.0) L Hematocrit 36.6 % (42.0-52.0) L Mean Corpuscular Volume 88 FL (80-99) Mean Corpuscular Hemoglobin 29.7 PG (27.0-31.0) Mean Corpuscular Hemoglobin Concent 33.9 G/DL (32.0-36.0) Red Cell Distribution Width 12.2 % (11.6-14.8) Platelet Count 494 K/UL (150-450) H Mean Platelet Volume 6.5 FL (6.5-10.1) Neutrophils (%) (Auto) 74.5 % (45.0-75.0) Lymphocytes (%) (Auto) 17.6 % (20.0-45.0) L Monocytes (%) (Auto) 6.7 % (1.0-10.0) Eosinophils (%) (Auto) 0.1 % (0.0-3.0) Basophils (%) (Auto) 1.1 % (0.0-2.0) Erythrocyte Sedimentation Rate 99 MM/HR (0-15) H Sodium Level 149 MMOL/L (136-145) H Potassium Level 3.7 MMOL/L (3.5-5.1) Chloride Level 114 MMOL/L (98-107) H Carbon Dioxide Level 19 MMOL/L (21-32) L Anion Gap 16 mmol/L (5-15) H Blood Urea Nitrogen 22 mg/dL (7-18) H Creatinine 0.8 MG/DL (0.55-1.30) Estimat Glomerular Filtration Rate > 60 mL/min (>60) Glucose Level 148 MG/DL (74-106) H Calcium Level 8.6 MG/DL (8.5-10.1) Phosphorus Level 1.7 MG/DL (2.5-4.9) L Magnesium Level 2.5 MG/DL (1.8-2.4) H Total Bilirubin 0.3 MG/DL (0.2-1.0) Aspartate Amino Transf (AST/SGOT) 24 U/L (15-37) Alanine Aminotransferase (ALT/SGPT) 39 U/L (12-78) Alkaline Phosphatase 84 U/L (46-116) C-Reactive Protein, Quantitative 11.8 mg/dL (0.00-0.90) H Pro-B-Type Natriuretic Peptide 110 pg/mL (0-125) Total Protein 7.7 G/DL (6.4-8.2) Albumin 2.6 G/DL (3.4-5.0) L Globulin 5.1 g/dL Albumin/Globulin Ratio 0.5 (1.0-2.7) L Amylase Level 29 U/L (25-115) Lipase 89 U/L (73-393) Urine Color Pale yellow Urine Appearance Clear Urine pH 5 (4.5-8.0) Urine Specific [place] 1.020 (1.005-1.035) Urine Protein 2+ (NEGATIVE) H Urine Glucose (UA) Negative (NEGATIVE) Urine Ketones Negative (NEGATIVE) Urine Blood 3+ (NEGATIVE) H Urine Nitrite Negative (NEGATIVE) Urine Bilirubin Negative (NEGATIVE) Urine Urobilinogen Normal MG/DL (0.0-1.0) Urine Leukocyte Esterase 1+ (NEGATIVE) H Urine RBC 2-4 /HPF (0 - 0) H Urine WBC 0-2 /HPF (0 - 0) Urine Squamous Epithelial Cells None /LPF (NONE/OCC) Urine Bacteria Few /HPF (NONE) Height (Feet): 5 Height (Inches): 7.00 Weight (Pounds): 111 General Appearance: WD/WN, no apparent distress, alert Cardiovascular: normal rate Respiratory/Chest: normal breath sounds, no respiratory distress Abdominal Exam: normal bowel sounds, non tender, soft Extremities: non-tender Objective Reported diarrhea Alvaro Ybarra NP Apr 05, 2019 10:15
--- NOTE | 2019-04-05 10:36 | Nephrology Progress Note ---
Assessment/Plan Problem List: (1) Acute renal failure (2) Acute prerenal azotemia Assessment: dehydration (3) Dehydration (4) Seizure disorder (5) Anoxic brain injury (6) Sepsis (7) Hypercalcemia Assessment Renal failure: Dehydration Hypernatremia, Free water deficit Sepsis Acute metabolic encephalopathy PEG Sz disorder HTN Plan D5W Phos , K , Lytes adjustments lowering Cr High Vanco level , now lowering One dose Aredia for high Ca- Calcium now in range- IV adjusted. K and Phos and Mag as needed monitor lytes GT feeding NS IV Fluids Coreg GT change to lopressor monitor electrolytes per orders Subjective ROS Limited/Unobtainable: Yes Objective Objective Last 24 Hour Vital Signs Date Time Temp Pulse Resp B/P (MAP) Pulse Ox O2 Delivery O2 Flow Rate FiO2 04/05/19 05:50 140 131/79 04/05/19 04:00 139 04/05/19 04:00 Nasal Cannula 2.0 04/05/19 04:00 100.0 140 24 131/79 (96) 99 04/05/19 00:00 99.1 129 24 113/66 (82) 98 04/05/19 00:00 129 04/05/19 00:00 Nasal Cannula 2.0 04/04/19 21:39 100.0 04/04/19 21:10 156 128/67 04/04/19 21:00 Nasal Cannula 2.0 04/04/19 21:00 102.4 159 28 127/83 (98) 97 04/04/19 20:00 102.4 154 20 130/86 (101) 97 04/04/19 16:00 101.0 141 21 132/79 (96) 95 04/04/19 14:00 128 106/80 04/04/19 12:00 101.2 128 19 106/80 (89) 95 Intake and Output 04/04/19 04/05/19 18:59 06:59 Intake Total 530 ml Output Total 450 ml Balance 80 ml IV Total 110 ml Tube Feeding 420 ml Output Urine Total 450 ml # Bowel Movements 2 Laboratory Tests 04/04/19 22:50: Activated Partial Thromboplast Time 28 04/05/19 03:10: Activated Partial Thromboplast Time 28, White Blood Count 16.8H, Red Blood Count 4.17L, Hemoglobin 12.4L, Hematocrit 36.6L, Mean Corpuscular Volume 88, Mean Corpuscular Hemoglobin 29.7, Mean Corpuscular Hemoglobin Concent 33.9, Red Cell Distribution Width 12.2, Platelet Count 494H, Mean Platelet Volume 6.5, Neutrophils (%) (Auto) 74.5, Lymphocytes (%) (Auto) 17.6L, Monocytes (%) (Auto) 6.7, Eosinophils (%) (Auto) 0.1, Basophils (%) (Auto) 1.1, Erythrocyte Sedimentation Rate 99H, Sodium Level 149H, Potassium Level 3.7, Chloride Level 114H, Carbon Dioxide Level 19L, Anion Gap 16H, Blood Urea Nitrogen 22H, Creatinine 0.8, Estimat Glomerular Filtration Rate > 60, Glucose Level 148H, Calcium Level 8.6, Phosphorus Level 1.7L, Magnesium Level 2.5H, Total Bilirubin 0.3, Aspartate Amino Transf (AST/SGOT) 24, Alanine Aminotransferase (ALT/SGPT) 39, Alkaline Phosphatase 84, C-Reactive Protein, Quantitative 11.8H, Pro-B-Type Natriuretic Peptide 110, Total Protein 7.7, Albumin 2.6L, Globulin 5.1, Albumin/ Globulin Ratio 0.5L, Amylase Level 29, Lipase 89 04/05/19 04:30: Urine Color Pale yellow, Urine Appearance Clear, Urine pH 5, Urine Specific [place] 1.020, Urine Protein 2+H, Urine Glucose (UA) Negative, Urine Ketones Negative, Urine Blood 3+H, Urine Nitrite Negative, Urine Bilirubin Negative, Urine Urobilinogen Normal, Urine Leukocyte Esterase 1+H, Urine RBC 2-4H, Urine WBC 0-2, Urine Squamous Epithelial Cells None, Urine Bacteria Few Height (Feet): 5 Height (Inches): 7.00 Weight (Pounds): 111 General Appearance: no apparent distress Cardiovascular: tachycardia Respiratory/Chest: decreased breath sounds Abdomen: distended Objective no change Janes Barros MD Apr 05, 2019 10:36
[2019-04-05] MEDS ORDERED: Potassium Phosphate 20 MM in NS 275 ML IV ONE (11:00)
[2019-04-05 12:00] VITALS: BP 125/81
--- NOTE | 2019-04-05 12:12 | Diagnostic Imaging Report ---
Indication: Abdominal pain Comparison: 03/30/2019 Single view of the abdomen obtained Findings: Bowel gas pattern is nonspecific. No mass, ectopic calcifications, or abnormal gas collections are identified. The bones are unremarkable. Gastrostomy noted. Impression: No acute findings
--- NOTE | 2019-04-05 12:14 | Diagnostic Imaging Report ---
Indication: Dyspnea Comparison: March 27, 2019 A single view chest radiograph was obtained. Findings: Cardiomediastinal appearance is within normal limits for age. The lungs are clear. Pulmonary vascularity is appropriate. The diaphragmatic contour is smooth and costophrenic angles are sharp. No pleural effusions are identified. The bones are unremarkable. Surgical clips are seen in the left-sided abdomen. Impression: No acute findings
--- NOTE | 2019-04-05 12:52 | Infectious Diseases Prog Note ---
Assessment/Plan Assessment/Plan IMPRESSION: 1. Fever,? FUO 2. Leukocytosis 3. Tachycardia. 4. He has anoxic encephalopathy. 5. MRSA colonization. 6. Hypernatremia and azotemia. 7. Seizure disorder. 8. Hypertension. 9. Small bowel obstruction versus enteritis 10. Diarrhea, c.difficile test negative RECOMMENDATION: continue Meropenem Will f/u Blood culture Will f/u CT scan of abdomen & pelvis with contrast Subjective ROS Limited/Unobtainable: Yes Constitutional: Reports: other; Denies: fever Allergies: Coded Allergies: No Known Allergies (Unverified , 08/20/18) Objective Vital Signs Last 24 Hour Vital Signs Date Time Temp Pulse Resp B/P (MAP) Pulse Ox O2 Delivery O2 Flow Rate FiO2 04/05/19 09:00 Nasal Cannula 2.0 04/05/19 08:00 97.5 119 26 120/81 (94) 100 04/05/19 07:33 118 04/05/19 05:50 140 131/79 04/05/19 04:00 139 04/05/19 04:00 Nasal Cannula 2.0 04/05/19 04:00 100.0 140 24 131/79 (96) 99 04/05/19 00:00 99.1 129 24 113/66 (82) 98 04/05/19 00:00 129 04/05/19 00:00 Nasal Cannula 2.0 04/04/19 21:39 100.0 04/04/19 21:10 156 128/67 04/04/19 21:00 Nasal Cannula 2.0 04/04/19 21:00 102.4 159 28 127/83 (98) 97 04/04/19 20:00 102.4 154 20 130/86 (101) 97 04/04/19 16:00 101.0 141 21 132/79 (96) 95 04/04/19 14:00 128 106/80 Height (Feet): 5 Height (Inches): 7.00 Weight (Pounds): 111 Respiratory/Chest: lungs clear Cardiovascular: tachycardia Abdomen: soft, non tender, other - GT feeding Extremities: no edema Neurologic/Psychiatric: disoriented, aphasia Musculoskeletal: atrophy Laboratory Tests Test 04/04/19 22:50 04/05/19 03:10 04/05/19 04:30 Activated Partial Thromboplast Time 28 SEC (23-33) 28 SEC (23-33) White Blood Count 16.8 K/UL (4.8-10.8) H Red Blood Count 4.17 M/UL (4.70-6.10) L Hemoglobin 12.4 G/DL (14.2-18.0) L Hematocrit 36.6 % (42.0-52.0) L Mean Corpuscular Volume 88 FL (80-99) Mean Corpuscular Hemoglobin 29.7 PG (27.0-31.0) Mean Corpuscular Hemoglobin Concent 33.9 G/DL (32.0-36.0) Red Cell Distribution Width 12.2 % (11.6-14.8) Platelet Count 494 K/UL (150-450) H Mean Platelet Volume 6.5 FL (6.5-10.1) Neutrophils (%) (Auto) 74.5 % (45.0-75.0) Lymphocytes (%) (Auto) 17.6 % (20.0-45.0) L Monocytes (%) (Auto) 6.7 % (1.0-10.0) Eosinophils (%) (Auto) 0.1 % (0.0-3.0) Basophils (%) (Auto) 1.1 % (0.0-2.0) Erythrocyte Sedimentation Rate 99 MM/HR (0-15) H Sodium Level 149 MMOL/L (136-145) H Potassium Level 3.7 MMOL/L (3.5-5.1) Chloride Level 114 MMOL/L (98-107) H Carbon Dioxide Level 19 MMOL/L (21-32) L Anion Gap 16 mmol/L (5-15) H Blood Urea Nitrogen 22 mg/dL (7-18) H Creatinine 0.8 MG/DL (0.55-1.30) Estimat Glomerular Filtration Rate > 60 mL/min (>60) Glucose Level 148 MG/DL (74-106) H Calcium Level 8.6 MG/DL (8.5-10.1) Phosphorus Level 1.7 MG/DL (2.5-4.9) L Magnesium Level 2.5 MG/DL (1.8-2.4) H Total Bilirubin 0.3 MG/DL (0.2-1.0) Aspartate Amino Transf (AST/SGOT) 24 U/L (15-37) Alanine Aminotransferase (ALT/SGPT) 39 U/L (12-78) Alkaline Phosphatase 84 U/L (46-116) C-Reactive Protein, Quantitative 11.8 mg/dL (0.00-0.90) H Pro-B-Type Natriuretic Peptide 110 pg/mL (0-125) Total Protein 7.7 G/DL (6.4-8.2) Albumin 2.6 G/DL (3.4-5.0) L Globulin 5.1 g/dL Albumin/Globulin Ratio 0.5 (1.0-2.7) L Amylase Level 29 U/L (25-115) Lipase 89 U/L (73-393) Urine Color Pale yellow Urine Appearance Clear Urine pH 5 (4.5-8.0) Urine Specific [place] 1.020 (1.005-1.035) Urine Protein 2+ (NEGATIVE) H Urine Glucose (UA) Negative (NEGATIVE) Urine Ketones Negative (NEGATIVE) Urine Blood 3+ (NEGATIVE) H Urine Nitrite Negative (NEGATIVE) Urine Bilirubin Negative (NEGATIVE) Urine Urobilinogen Normal MG/DL (0.0-1.0) Urine Leukocyte Esterase 1+ (NEGATIVE) H Urine RBC 2-4 /HPF (0 - 0) H Urine WBC 0-2 /HPF (0 - 0) Urine Squamous Epithelial Cells None /LPF (NONE/OCC) Urine Bacteria Few /HPF (NONE) Current Medications Medications (Trade) Dose Ordered Sig/Yohannes Route PRN Reason Start Time Stop Time Status Last Admin Dose Admin Acetaminophen (Tylenol) 650 mg Q6H PRN GT Mild Pain/Temp > 100.5 04/05/19 03:00 04/20/19 02:59 04/05/19 03:58 Barium Sulfate (Readi-Cat 2) 450 ml NOW PRN ORAL Radiology Procedure 04/04/19 21:30 04/06/19 21:29 Bisacodyl (Dulcolax) 10 mg DAILY PRN RECTAL Constipation 04/05/19 09:00 04/22/19 18:59 Dextrose 1,000 ml @ 100 mls/hr Q10H ONCE IV 04/05/19 09:45 04/05/19 19:44 04/05/19 10:03 Docusate Sodium (Colace) 100 mg TID GT 04/05/19 09:00 04/23/19 08:59 Iopamidol (Isovue-300 100ml) 100 ml NOW PRN INJ Radiology Procedure 04/04/19 21:30 04/06/19 21:29 Lansoprazole (Prevacid) 30 mg DAILY GT 04/05/19 09:00 04/26/19 15:14 04/05/19 09:02 Levetiracetam (Keppra) 1,000 mg Q12HR ORAL 04/05/19 09:00 04/20/19 08:59 04/05/19 09:02 Loperamide HCl (Imodium) 2 mg Q6H PRN GT Diarrhea 04/04/19 21:30 05/04/19 21:29 Meropenem 1 gm/ Sodium Chloride 55 ml @ 110 mls/hr EVERY 8 HOURS IVPB 04/04/19 22:00 04/09/19 13:59 04/05/19 05:51 Metoprolol Tartrate (Lopressor) 50 mg Q8HR GT 04/04/19 22:00 04/26/19 20:59 04/05/19 05:50 Polyethylene Glycol (Miralax) 17 gm DAILY NG 04/05/19 09:00 04/20/19 08:59 Potassium Phosphate 20 mm/ Sodium Chloride 281.6667 ml @ 46.944 m... ONCE ONCE IV 04/05/19 11:00 04/05/19 16:59 04/05/19 11:23 Sennosides (Senokot) 17.2 mg BEDTIME GT 04/05/19 21:00 04/20/19 20:59 Yash Shay MD Apr 05, 2019 12:52
--- NOTE | 2019-04-05 12:59 | Diagnostic Imaging Report ---
Indication: Abdominal pain Technique: Continuous helical transaxial imaging of the abdomen and pelvis was obtained from the lung bases to the pubic symphysis during intravenous contrast administration. Coronal 2-D reformats were also obtained. Study obtained in a Siemens sensation [address] Automatic Exposure Control was utilized. Total Dose length Product (DLP): 875.[address] Dose Index Volume (CTDIvol): 16.14 mGy Comparison: None Findings: Lung bases are essentially clear. There is artifact limiting evaluation of the upper abdomen. A small hiatal hernia is present. The gallbladder is distended. The liver and spleen and pancreas are unremarkable. There are small cysts within the left kidney. There is no hydronephrosis. There is a small low density mass within the left adrenal gland measuring about a centimeter. This may be an adenoma. Gastrostomy tube is noted. Bowel gas pattern appears nonobstructive. The appendix is normal. The rectum is distended with liquefied stool. Correlate for diarrhea. A few discrete diverticula noted within the sigmoid colon. No evidence of acute diverticulitis. Bladder is mildly distended. IMPRESSION: No evidence of bowel obstruction. Liquefied stool in the colon and mild distention of the rectum. Correlate for diarrhea and gastroenteritis. 1 cm left adrenal mass probably adenoma. MRI evaluation may be of benefit. Gastrostomy. Other incidental findings as above The CT scanner at [facility] is accredited by the [employer] and the scans are performed using dose optimization techniques as appropriate to a performed exam including Automatic Exposure control.
--- NOTE | 2019-04-05 14:07 | Cardiology Report ---
APPROVED REPORT EKG Measurement Heart [id number] Sinus tachycardia Otherwise normal ECG
--- NOTE | 2019-04-05 14:07 | Cardiac Electrophysiology PN ---
Assessment/Plan Assessment/Plan 1. Sinus tachycardia due to fever and severe dehydration. Continue Metoprolol 50 q8. EF 60%. 2. Hypertension. On Metoprolol 50 mg q8 3. Sepsis, on IV antibiotic per Dr. Shay. 4. Dysphagia, status post PEG 5. Anoxic brain injury and seizures. MRI brain negative for any acute findings On Keppra 6. Acute renal failure and dehydration, resolved Cr 0.7 7. Possible SBO by CT abdomen. Dr Ospina. DW RN Subjective Subjective Nonverbal but alert. Had fever again. Daughter and at bedside Objective Last 24 Hour Vital Signs Date Time Temp Pulse Resp B/P (MAP) Pulse Ox O2 Delivery O2 Flow Rate FiO2 04/05/19 14:01 136 146/82 04/05/19 12:00 98.4 117 24 125/81 (96) 99 04/05/19 09:00 Nasal Cannula 2.0 04/05/19 08:00 97.5 119 26 120/81 (94) 100 04/05/19 07:33 118 04/05/19 05:50 140 131/79 04/05/19 04:00 139 04/05/19 04:00 Nasal Cannula 2.0 04/05/19 04:00 100.0 140 24 131/79 (96) 99 04/05/19 00:00 99.1 129 24 113/66 (82) 98 04/05/19 00:00 129 04/05/19 00:00 Nasal Cannula 2.0 04/04/19 21:39 100.0 04/04/19 21:10 156 128/67 04/04/19 21:00 Nasal Cannula 2.0 04/04/19 21:00 102.4 159 28 127/83 (98) 97 04/04/19 20:00 102.4 154 20 130/86 (101) 97 04/04/19 16:00 101.0 141 21 132/79 (96) 95 Intake and Output 04/04/19 04/05/19 18:59 06:59 Intake Total 530 ml Output Total 450 ml Balance 80 ml IV Total 110 ml Tube Feeding 420 ml Output Urine Total 450 ml # Bowel Movements 2 Laboratory Tests Test 04/04/19 22:50 04/05/19 03:10 04/05/19 04:30 Activated Partial Thromboplast Time 28 SEC (23-33) 28 SEC (23-33) White Blood Count 16.8 K/UL (4.8-10.8) H Red Blood Count 4.17 M/UL (4.70-6.10) L Hemoglobin 12.4 G/DL (14.2-18.0) L Hematocrit 36.6 % (42.0-52.0) L Mean Corpuscular Volume 88 FL (80-99) Mean Corpuscular Hemoglobin 29.7 PG (27.0-31.0) Mean Corpuscular Hemoglobin Concent 33.9 G/DL (32.0-36.0) Red Cell Distribution Width 12.2 % (11.6-14.8) Platelet Count 494 K/UL (150-450) H Mean Platelet Volume 6.5 FL (6.5-10.1) Neutrophils (%) (Auto) 74.5 % (45.0-75.0) Lymphocytes (%) (Auto) 17.6 % (20.0-45.0) L Monocytes (%) (Auto) 6.7 % (1.0-10.0) Eosinophils (%) (Auto) 0.1 % (0.0-3.0) Basophils (%) (Auto) 1.1 % (0.0-2.0) Erythrocyte Sedimentation Rate 99 MM/HR (0-15) H Sodium Level 149 MMOL/L (136-145) H Potassium Level 3.7 MMOL/L (3.5-5.1) Chloride Level 114 MMOL/L (98-107) H Carbon Dioxide Level 19 MMOL/L (21-32) L Anion Gap 16 mmol/L (5-15) H Blood Urea Nitrogen 22 mg/dL (7-18) H Creatinine 0.8 MG/DL (0.55-1.30) Estimat Glomerular Filtration Rate > 60 mL/min (>60) Glucose Level 148 MG/DL (74-106) H Calcium Level 8.6 MG/DL (8.5-10.1) Phosphorus Level 1.7 MG/DL (2.5-4.9) L Magnesium Level 2.5 MG/DL (1.8-2.4) H Total Bilirubin 0.3 MG/DL (0.2-1.0) Aspartate Amino Transf (AST/SGOT) 24 U/L (15-37) Alanine Aminotransferase (ALT/SGPT) 39 U/L (12-78) Alkaline Phosphatase 84 U/L (46-116) C-Reactive Protein, Quantitative 11.8 mg/dL (0.00-0.90) H Pro-B-Type Natriuretic Peptide 110 pg/mL (0-125) Total Protein 7.7 G/DL (6.4-8.2) Albumin 2.6 G/DL (3.4-5.0) L Globulin 5.1 g/dL Albumin/Globulin Ratio 0.5 (1.0-2.7) L Amylase Level 29 U/L (25-115) Lipase 89 U/L (73-393) Urine Color Pale yellow Urine Appearance Clear Urine pH 5 (4.5-8.0) Urine Specific [place] 1.020 (1.005-1.035) Urine Protein 2+ (NEGATIVE) H Urine Glucose (UA) Negative (NEGATIVE) Urine Ketones Negative (NEGATIVE) Urine Blood 3+ (NEGATIVE) H Urine Nitrite Negative (NEGATIVE) Urine Bilirubin Negative (NEGATIVE) Urine Urobilinogen Normal MG/DL (0.0-1.0) Urine Leukocyte Esterase 1+ (NEGATIVE) H Urine RBC 2-4 /HPF (0 - 0) H Urine WBC 0-2 /HPF (0 - 0) Urine Squamous Epithelial Cells None /LPF (NONE/OCC) Urine Bacteria Few /HPF (NONE) Objective HEAD AND NECK: No JVD. Old tracheostomy site closed. LUNGS: Coarse rhonchi. CARDIOVASCULAR: Tachy S1 and S2 with no gallop. ABDOMEN: Soft, status post G-tube. EXTREMITIES: No pitting edema. Jim Manjarrez MD Apr 05, 2019 14:07
--- NOTE | 2019-04-05 14:11 | Surgery Progress Note ---
Surgery Progress Note Subjective Additional Comments leukocytosis 16k. tachycardic. KUB/CXR noted. CT noted Objective Last 24 Hour Vital Signs Date Time Temp Pulse Resp B/P (MAP) Pulse Ox O2 Delivery O2 Flow Rate FiO2 04/05/19 14:01 136 146/82 04/05/19 12:00 98.4 117 24 125/81 (96) 99 04/05/19 09:00 Nasal Cannula 2.0 04/05/19 08:00 97.5 119 26 120/81 (94) 100 04/05/19 07:33 118 04/05/19 05:50 140 131/79 04/05/19 04:00 139 04/05/19 04:00 Nasal Cannula 2.0 04/05/19 04:00 100.0 140 24 131/79 (96) 99 04/05/19 00:00 99.1 129 24 113/66 (82) 98 04/05/19 00:00 129 04/05/19 00:00 Nasal Cannula 2.0 04/04/19 21:39 100.0 04/04/19 21:10 156 128/67 04/04/19 21:00 Nasal Cannula 2.0 04/04/19 21:00 102.4 159 28 127/83 (98) 97 04/04/19 20:00 102.4 154 20 130/86 (101) 97 04/04/19 16:00 101.0 141 21 132/79 (96) 95 I&O Intake and Output 04/04/19 04/05/19 18:59 06:59 Intake Total 530 ml Output Total 450 ml Balance 80 ml IV Total 110 ml Tube Feeding 420 ml Output Urine Total 450 ml # Bowel Movements 2 Dressing: other Wound: other Drains: other Cardiovascular: RSR Respiratory: decreased breath sounds Abdomen: soft, non-tender, present bowel sounds, other, non-distended Extremities: no cyanosis Laboratory Tests Test 04/04/19 22:50 04/05/19 03:10 04/05/19 04:30 Activated Partial Thromboplast Time 28 SEC (23-33) 28 SEC (23-33) White Blood Count 16.8 K/UL (4.8-10.8) H Red Blood Count 4.17 M/UL (4.70-6.10) L Hemoglobin 12.4 G/DL (14.2-18.0) L Hematocrit 36.6 % (42.0-52.0) L Mean Corpuscular Volume 88 FL (80-99) Mean Corpuscular Hemoglobin 29.7 PG (27.0-31.0) Mean Corpuscular Hemoglobin Concent 33.9 G/DL (32.0-36.0) Red Cell Distribution Width 12.2 % (11.6-14.8) Platelet Count 494 K/UL (150-450) H Mean Platelet Volume 6.5 FL (6.5-10.1) Neutrophils (%) (Auto) 74.5 % (45.0-75.0) Lymphocytes (%) (Auto) 17.6 % (20.0-45.0) L Monocytes (%) (Auto) 6.7 % (1.0-10.0) Eosinophils (%) (Auto) 0.1 % (0.0-3.0) Basophils (%) (Auto) 1.1 % (0.0-2.0) Erythrocyte Sedimentation Rate 99 MM/HR (0-15) H Sodium Level 149 MMOL/L (136-145) H Potassium Level 3.7 MMOL/L (3.5-5.1) Chloride Level 114 MMOL/L (98-107) H Carbon Dioxide Level 19 MMOL/L (21-32) L Anion Gap 16 mmol/L (5-15) H Blood Urea Nitrogen 22 mg/dL (7-18) H Creatinine 0.8 MG/DL (0.55-1.30) Estimat Glomerular Filtration Rate > 60 mL/min (>60) Glucose Level 148 MG/DL (74-106) H Calcium Level 8.6 MG/DL (8.5-10.1) Phosphorus Level 1.7 MG/DL (2.5-4.9) L Magnesium Level 2.5 MG/DL (1.8-2.4) H Total Bilirubin 0.3 MG/DL (0.2-1.0) Aspartate Amino Transf (AST/SGOT) 24 U/L (15-37) Alanine Aminotransferase (ALT/SGPT) 39 U/L (12-78) Alkaline Phosphatase 84 U/L (46-116) C-Reactive Protein, Quantitative 11.8 mg/dL (0.00-0.90) H Pro-B-Type Natriuretic Peptide 110 pg/mL (0-125) Total Protein 7.7 G/DL (6.4-8.2) Albumin 2.6 G/DL (3.4-5.0) L Globulin 5.1 g/dL Albumin/Globulin Ratio 0.5 (1.0-2.7) L Amylase Level 29 U/L (25-115) Lipase 89 U/L (73-393) Urine Color Pale yellow Urine Appearance Clear Urine pH 5 (4.5-8.0) Urine Specific [place] 1.020 (1.005-1.035) Urine Protein 2+ (NEGATIVE) H Urine Glucose (UA) Negative (NEGATIVE) Urine Ketones Negative (NEGATIVE) Urine Blood 3+ (NEGATIVE) H Urine Nitrite Negative (NEGATIVE) Urine Bilirubin Negative (NEGATIVE) Urine Urobilinogen Normal MG/DL (0.0-1.0) Urine Leukocyte Esterase 1+ (NEGATIVE) H Urine RBC 2-4 /HPF (0 - 0) H Urine WBC 0-2 /HPF (0 - 0) Urine Squamous Epithelial Cells None /LPF (NONE/OCC) Urine Bacteria Few /HPF (NONE) Plan Problems: (1) Acute prerenal azotemia (2) Weakness generalized (3) Schizoaffective disorder (4) Acute hypernatremia (5) Dehydration (6) Seizure disorder (7) Sepsis Assessment & Plan: febrile, tachycardia, leukocytosis etiology unknown exam without significant pathology cultures negative thus far cxr okay ct noted No evidence of bowel obstruction. Liquefied stool in the colon and mild distention of the rectum. Correlate for diarrhea and gastroenteritis. 1 cm left adrenal mass probably adenoma. MRI evaluation may be of benefit. Gastrostomy. -trend labs venous duplex studies will follow with recs thank you (8) Anoxic brain injury (9) Encephalopathy due to metabolic factor or toxin (10) Acute metabolic encephalopathy (11) Acute renal failure (12) Hypercalcemia (13) Diarrhea (14) SBO (small bowel obstruction) Assessment & Plan: CT with Ingested contrast is traversed only a short distance into the small bowel. There is diffuse mild dilatation of the proximal to mid small bowel, collapsed distal small bowel loops. Uncertain point of transition although probably in the lower mid abdomen/upper pelvis. There is only minimal forward transit of contrast There is mild distention of the distal sigmoid and rectum by what appears to be fluid contents. No downstream obstructive lesion demonstrated. There is colonic diverticulosis. The appendix is normal. No free or loculated intraperitoneal gas or fluid is evident. There is edema of the presacral fat. There are surgical clips in the anterior gastric wall. There is a gastrostomy in appropriate position in the gastric body. The distal esophagus and duodenum are unremarkable. Lack of IV contrast limits assessment of the solid organs. Liver, gallbladder, bile ducts, pancreas, spleen, adrenals are unremarkable. 1 cm exophytic cyst comes off of the pole region of the left kidney, as well as a smaller exophytic subcentimeter low-attenuation lesion which is too small to characterize. There is also a very subtle 2 cm fluid attenuation cyst coming off of the lower pole. The right kidney is unremarkable. No pelvic mass or adenopathy. follow up KUB without pathology now with loose stools c diff negative appreciate GI input okay for tube feeds as above thank you (15) Anemia (16) Dysphagia (17) Feeding by G-tube Sean Thornton Apr 05, 2019 14:11
--- NOTE | 2019-04-05 15:00 | Cardiology Report ---
APPROVED REPORT EKG Measurement Heart [id number] CT [id number] Sinus tachycardia Otherwise normal ECG
[2019-04-05 16:00] VITALS: BP 129/87
[2019-04-05 20:00] VITALS: BP 122/77
[2019-04-05] MEDS: Sennosides 8.6mg tab GT SCH (20:27)
--- NOTE | 2019-04-05 22:07 | General Progress Note ---
Assessment/Plan Problem List: (1) Schizoaffective disorder ICD Codes: F25.9 - Schizoaffective disorder, unspecified SNOMED: 77801128 (2) Seizure disorder ICD Codes: G40.909 - Epilepsy, unspecified, not intractable, without status epilepticus SNOMED: 434380597 (3) Dehydration ICD Codes: E86.0 - Dehydration SNOMED: 88315708, 378118457 (4) Sepsis ICD Codes: A41.9 - Sepsis, unspecified organism SNOMED: 07190811, 829552786 Qualifiers: Qualified Codes: A41.9 - Sepsis, unspecified organism (5) Acute metabolic encephalopathy ICD Codes: G93.41 - Metabolic encephalopathy SNOMED: 68280941, 192080342 Status: progressing, unchanged Assessment/Plan: encephalopathy intermittent fever fever of unknown etiology r/o dvt abx per id Subjective ROS Limited/Unobtainable: Yes Allergies: Coded Allergies: No Known Allergies (Unverified , 08/20/18) Objective Last 24 Hour Vital Signs Date Time Temp Pulse Resp B/P (MAP) Pulse Ox O2 Delivery O2 Flow Rate FiO2 04/05/19 21:00 Nasal Cannula 2.0 04/05/19 21:00 99.5 04/05/19 20:58 100.0 04/05/19 20:00 100.2 131 20 122/77 (92) 99 04/05/19 19:07 131 04/05/19 16:00 99.3 114 22 129/87 (101) 99 04/05/19 15:27 118 04/05/19 14:01 136 146/82 04/05/19 12:00 98.4 117 24 125/81 (96) 99 04/05/19 11:33 128 04/05/19 09:00 Nasal Cannula 2.0 04/05/19 08:00 97.5 119 26 120/81 (94) 100 04/05/19 07:33 118 04/05/19 05:50 140 131/79 04/05/19 04:00 139 04/05/19 04:00 Nasal Cannula 2.0 04/05/19 04:00 100.0 140 24 131/79 (96) 99 04/05/19 00:00 99.1 129 24 113/66 (82) 98 04/05/19 00:00 129 04/05/19 00:00 Nasal Cannula 2.0 Intake and Output 04/04/19 04/05/19 19:00 07:00 Intake Total 60 ml 470 ml Output Total 450 ml Balance 60 ml 20 ml IV Total 110 ml Tube Feeding 60 ml 360 ml Output Urine Total 450 ml # Bowel Movements 2 Laboratory Tests 04/04/19 22:50: Activated Partial Thromboplast Time 28 04/05/19 03:10: Activated Partial Thromboplast Time 28, White Blood Count 16.8H, Red Blood Count 4.17L, Hemoglobin 12.4L, Hematocrit 36.6L, Mean Corpuscular Volume 88, Mean Corpuscular Hemoglobin 29.7, Mean Corpuscular Hemoglobin Concent 33.9, Red Cell Distribution Width 12.2, Platelet Count 494H, Mean Platelet Volume 6.5, Neutrophils (%) (Auto) 74.5, Lymphocytes (%) (Auto) 17.6L, Monocytes (%) (Auto) 6.7, Eosinophils (%) (Auto) 0.1, Basophils (%) (Auto) 1.1, Erythrocyte Sedimentation Rate 99H, Sodium Level 149H, Potassium Level 3.7, Chloride Level 114H, Carbon Dioxide Level 19L, Anion Gap 16H, Blood Urea Nitrogen 22H, Creatinine 0.8, Estimat Glomerular Filtration Rate > 60, Glucose Level 148H, Calcium Level 8.6, Phosphorus Level 1.7L, Magnesium Level 2.5H, Total Bilirubin 0.3, Aspartate Amino Transf (AST/SGOT) 24, Alanine Aminotransferase (ALT/SGPT) 39, Alkaline Phosphatase 84, C-Reactive Protein, Quantitative 11.8H, Pro-B-Type Natriuretic Peptide 110, Total Protein 7.7, Albumin 2.6L, Globulin 5.1, Albumin/ Globulin Ratio 0.5L, Amylase Level 29, Lipase 89 04/05/19 04:30: Urine Color Pale yellow, Urine Appearance Clear, Urine pH 5, Urine Specific [place] 1.020, Urine Protein 2+H, Urine Glucose (UA) Negative, Urine Ketones Negative, Urine Blood 3+H, Urine Nitrite Negative, Urine Bilirubin Negative, Urine Urobilinogen Normal, Urine Leukocyte Esterase 1+H, Urine RBC 2-4H, Urine WBC 0-2, Urine Squamous Epithelial Cells None, Urine Bacteria Few Height (Feet): 5 Height (Inches): 7.00 Weight (Pounds): 111 General Appearance: confused Cardiovascular: normal rate Lenin Wyatt MD Apr 05, 2019 22:07
--- NOTE | 2019-04-05 23:57 | Neurology Progress Note ---
Interim History Interim History ROS Limited/Unobtainable: Yes Complaints: AMS Events: This visit was performed on April 05, [address] Jin Interim History Still tachycardic and febrile today. Review of Systems All Systems: reviewed and negative except above Objective Physical Exam Last Vital Signs Date Time Temp Pulse Resp B/P (MAP) Pulse Ox O2 Delivery O2 Flow Rate FiO2 04/05/19 22:07 123 130/79 04/05/19 21:00 Nasal Cannula 2.0 04/05/19 21:00 99.5 04/05/19 20:00 20 99 03/27/19 08:06 21 Laboratory Tests Test 04/05/19 03:10 04/05/19 04:30 White Blood Count 16.8 K/UL (4.8-10.8) H Red Blood Count 4.17 M/UL (4.70-6.10) L Hemoglobin 12.4 G/DL (14.2-18.0) L Hematocrit 36.6 % (42.0-52.0) L Mean Corpuscular Volume 88 FL (80-99) Mean Corpuscular Hemoglobin 29.7 PG (27.0-31.0) Mean Corpuscular Hemoglobin Concent 33.9 G/DL (32.0-36.0) Red Cell Distribution Width 12.2 % (11.6-14.8) Platelet Count 494 K/UL (150-450) H Mean Platelet Volume 6.5 FL (6.5-10.1) Neutrophils (%) (Auto) 74.5 % (45.0-75.0) Lymphocytes (%) (Auto) 17.6 % (20.0-45.0) L Monocytes (%) (Auto) 6.7 % (1.0-10.0) Eosinophils (%) (Auto) 0.1 % (0.0-3.0) Basophils (%) (Auto) 1.1 % (0.0-2.0) Erythrocyte Sedimentation Rate 99 MM/HR (0-15) H Activated Partial Thromboplast Time 28 SEC (23-33) Sodium Level 149 MMOL/L (136-145) H Potassium Level 3.7 MMOL/L (3.5-5.1) Chloride Level 114 MMOL/L (98-107) H Carbon Dioxide Level 19 MMOL/L (21-32) L Anion Gap 16 mmol/L (5-15) H Blood Urea Nitrogen 22 mg/dL (7-18) H Creatinine 0.8 MG/DL (0.55-1.30) Estimat Glomerular Filtration Rate > 60 mL/min (>60) Glucose Level 148 MG/DL (74-106) H Calcium Level 8.6 MG/DL (8.5-10.1) Phosphorus Level 1.7 MG/DL (2.5-4.9) L Magnesium Level 2.5 MG/DL (1.8-2.4) H Total Bilirubin 0.3 MG/DL (0.2-1.0) Aspartate Amino Transf (AST/SGOT) 24 U/L (15-37) Alanine Aminotransferase (ALT/SGPT) 39 U/L (12-78) Alkaline Phosphatase 84 U/L (46-116) C-Reactive Protein, Quantitative 11.8 mg/dL (0.00-0.90) H Pro-B-Type Natriuretic Peptide 110 pg/mL (0-125) Total Protein 7.7 G/DL (6.4-8.2) Albumin 2.6 G/DL (3.4-5.0) L Globulin 5.1 g/dL Albumin/Globulin Ratio 0.5 (1.0-2.7) L Amylase Level 29 U/L (25-115) Lipase 89 U/L (73-393) Urine Color Pale yellow Urine Appearance Clear Urine pH 5 (4.5-8.0) Urine Specific [place] 1.020 (1.005-1.035) Urine Protein 2+ (NEGATIVE) H Urine Glucose (UA) Negative (NEGATIVE) Urine Ketones Negative (NEGATIVE) Urine Blood 3+ (NEGATIVE) H Urine Nitrite Negative (NEGATIVE) Urine Bilirubin Negative (NEGATIVE) Urine Urobilinogen Normal MG/DL (0.0-1.0) Urine Leukocyte Esterase 1+ (NEGATIVE) H Urine RBC 2-4 /HPF (0 - 0) H Urine WBC 0-2 /HPF (0 - 0) Urine Squamous Epithelial Cells None /LPF (NONE/OCC) Urine Bacteria Few /HPF (NONE) General: well developed, well nourished Head: normocophalic Neck: other EENT: benign, other Neurologic Exam Mental Status: other Speech: other Language: other Cranial Nerve II: fundus normal, visual roberts, no papilledema, other Cranial Nerves III, IV, : PERRLA, EOMI, other Cranial Nerve V: other Cranial Nerve VII: other Cranial Nerve VIII: other Cranial Nerve IX: other Cranial Nerve X: other Cranial Nerve XI: other Cranial Nerve XII: other Motor System: other Sensory: other Coordination: other - Patient has tracheostomy scar at throat, is tracking intermittently with his eyes, he doesn't follow commands, has rigid tone and spasticity in all extremities and triple flexes in LEs bilaterally with mild decerebrate posturing in UEs on noxious stim. Deep Tendon Reflexes: 1+ bicep (L), 1+ bicep (R), 1+ tricep (L), 1+ tricep (R) , 1+ brachioradialis (L), 1+ brachioradialis (R), 1+ knee (L), 1+ knee (R), 1+ ankle (L), 1+ ankle (R) Reflexes: flexor plantar (L), flexor plantar (R); extensor plantar (L), extensor plantar (R) Objective Patient has tracheostomy scar at throat, is tracking intermittently with his eyes, he doesn't follow commands, has rigid tone and spasticity in all extremities and triple flexes in LEs bilaterally with mild decerebrate posturing in UEs on noxious stim. He has nystagmus on gaze at rest bilaterally - He is much more alert still with fever now. Impression/Recommendations Problems: (1) Seizure disorder (2) Anoxic brain injury Assessment & Plan: Central fevers probable but no explanation for leukocytosis. No indication or likelihood of meningitis- no need for LP at this time. MRI was negative for any acute events. (3) Sepsis (4) Acute hypernatremia (5) Dehydration (6) Encephalopathy due to metabolic factor or toxin (7) Acute metabolic encephalopathy (8) Weakness generalized (9) Schizoaffective disorder (10) Acute prerenal azotemia (11) Acute renal failure (12) Hypercalcemia (13) Diarrhea (14) SBO (small bowel obstruction) (15) Anemia (16) Dysphagia (17) Feeding by G-tube Status: progressing, not improved, unchanged Recommendations Q4 Hour obs Na 135-145 = water flushes to PEG feeding schedule Telemetry monitoring Maintain normothermia with Tylenol and cooling blanket Abx as per ID Please consider NS instead of D5 IV fluid Maintain normoglycemia with ISS SBP<140 Continue Keppra 1000 mg BID - Ativan 1mg PRN for seizure Replete/ Replace lytes Cultures Negative Chey Long N.P. Apr 05, 2019 23:57
[2019-04-06] VITALS: BP 126/80
[2019-04-06 04:00] VITALS: BP 129/75
[2019-04-06] MEDS: Meropenem 1 GM in NS 55 ML IVPB SCH ×3 (05:44→21:24)
[2019-04-06] MEDS: Metoprolol Tartrate 50mg tab GT SCH (05:44)
[2019-04-06 06:15] LABS: BASOPHILS % (AUTO) 0.7 % (0.0-2.0); HEMATOCRIT 32.8 % (42.0-52.0); HEMOGLOBIN 11.1 G/DL (14.2-18.0); LYMPHOCYTES % (AUTO) 15.8 % (20.0-45.0); MEAN CORPUSCULAR VOLUME 88 FL (80-99); MONOCYTES % (AUTO) 6.4 % (1.0-10.0); PLATELET COUNT 447 K/UL (150-450); RED BLOOD COUNT 3.73 M/UL (4.70-6.10); RED CELL DISTRIBUTION WIDTH 12.3 % (11.6-14.8)
[2019-04-06 06:39] LABS: ANION GAP 12 mmol/L (5-15); BLOOD UREA NITROGEN 18 mg/dL (7-18); CALCIUM 8.1 MG/DL (8.5-10.1); CARBON DIOXIDE 24 MMOL/L (21-32); CHLORIDE 112 MMOL/L (98-107); CREATININE 0.5 MG/DL (0.55-1.30); PHOSPHORUS 2.3 MG/DL (2.5-4.9); POTASSIUM 4.1 MMOL/L (3.5-5.1); SODIUM 148 MMOL/L (136-145)
[2019-04-06 08:00] VITALS: BP 110/68
[2019-04-06] MEDS: Miralax 17gm pkt NG SCH (09:00)
[2019-04-06] MEDS: Docusate 100mg/10ml Liq GT SCH ×3 (09:00→18:00)
--- NOTE | 2019-04-06 09:16 | General Progress Note ---
Assessment/Plan Problem List: (1) Anemia ICD Codes: D64.9 - Anemia, unspecified SNOMED: 964052984 (2) Dysphagia ICD Codes: R13.10 - Dysphagia, unspecified SNOMED: 85823561, 598119860 (3) Feeding by G-tube ICD Codes: Z93.1 - Gastrostomy status SNOMED: 503651481, 278423959, 298451349 (4) Anoxic brain injury ICD Codes: G93.1 - Anoxic brain damage, not elsewhere classified SNOMED: 850318604 (5) Seizure disorder ICD Codes: G40.909 - Epilepsy, unspecified, not intractable, without status epilepticus SNOMED: 106534957 (6) Schizoaffective disorder ICD Codes: F25.9 - Schizoaffective disorder, unspecified SNOMED: 59875295 Status: progressing, unchanged Assessment/Plan: no SBO per X ray and exam C. difficile negative GTF as tolerated to 60 cc Stop all stool softeners and laxatives Imodium as needed PPI Electrolyte correction Reglan as needed Subjective ROS Limited/Unobtainable: No Allergies: Coded Allergies: No Known Allergies (Unverified , 08/20/18) Objective Last 24 Hour Vital Signs Date Time Temp Pulse Resp B/P (MAP) Pulse Ox O2 Delivery O2 Flow Rate FiO2 04/06/19 05:44 128 130/72 04/06/19 04:00 Nasal Cannula 2.0 04/06/19 04:00 98.0 132 20 129/75 (93) 99 04/06/19 03:20 120 04/06/19 00:00 Nasal Cannula 2.0 04/06/19 00:00 100.0 123 21 126/80 (95) 98 04/05/19 23:28 116 04/05/19 22:07 123 130/79 04/05/19 21:00 Nasal Cannula 2.0 04/05/19 21:00 99.5 04/05/19 20:58 100.0 04/05/19 20:00 100.2 131 20 122/77 (92) 99 04/05/19 19:07 131 04/05/19 16:00 99.3 114 22 129/87 (101) 99 04/05/19 15:27 118 04/05/19 14:01 136 146/82 04/05/19 12:00 98.4 117 24 125/81 (96) 99 04/05/19 11:33 128 Intake and Output 04/05/19 04/06/19 19:00 07:00 Intake Total 1637.548 ml 1125 ml Output Total 900 ml Balance 737.548 ml 1125 ml Free Water 250 ml IV Total 1277.548 ml 215 ml Tube Feeding 360 ml 660 ml Output Urine Total 900 ml # Voids 3 # Bowel Movements 3 2 Laboratory Tests 04/06/19 03:25: White Blood Count 13.0H, Red Blood Count 3.73L, Hemoglobin 11.1L, Hematocrit 32.8L, Mean Corpuscular Volume 88, Mean Corpuscular Hemoglobin 29.9, Mean Corpuscular Hemoglobin Concent 34.0, Red Cell Distribution Width 12.3, Platelet Count 447, Mean Platelet Volume 6.8, Neutrophils (%) (Auto) 76.0H, Lymphocytes ( %) (Auto) 15.8L, Monocytes (%) (Auto) 6.4, Eosinophils (%) (Auto) 1.0, Basophils (%) (Auto) 0.7, Sodium Level 148H, Potassium Level 4.1, Chloride Level 112H, Carbon Dioxide Level 24, Anion Gap 12, Blood Urea Nitrogen 18, Creatinine 0.5L, Estimat Glomerular Filtration Rate > 60, Glucose Level 149H, Calcium Level 8.1L, Phosphorus Level 2.3L, Magnesium Level 2.2 Height (Feet): 5 Height (Inches): 7.00 Weight (Pounds): 150 General Appearance: no apparent distress EENT: normal ENT inspection Neck: supple Cardiovascular: normal rate Respiratory/Chest: decreased breath sounds Abdomen: normal bowel sounds, non tender, soft Extremities: non-tender Ruddy Ospina MD Apr 06, 2019 09:16
--- NOTE | 2019-04-06 09:27 | Infectious Diseases Prog Note ---
Assessment/Plan Assessment/Plan IMPRESSION: 1. Fever,? FUO 2. Leukocytosis 3. Tachycardia. 4. He has anoxic encephalopathy. 5. MRSA colonization. 6. Hypernatremia and azotemia. 7. Seizure disorder. 8. Hypertension. 9. enteritis 10. Diarrhea, c.difficile test negative RECOMMENDATION: continue Meropenem, add Flagyl Will f/u Blood culture Hold laxatives Subjective ROS Limited/Unobtainable: Yes Constitutional: Reports: fever, other - low grade Allergies: Coded Allergies: No Known Allergies (Unverified , 08/20/18) Objective Vital Signs Last 24 Hour Vital Signs Date Time Temp Pulse Resp B/P (MAP) Pulse Ox O2 Delivery O2 Flow Rate FiO2 04/06/19 05:44 128 130/72 04/06/19 04:00 Nasal Cannula 2.0 04/06/19 04:00 98.0 132 20 129/75 (93) 99 04/06/19 03:20 120 04/06/19 00:00 Nasal Cannula 2.0 04/06/19 00:00 100.0 123 21 126/80 (95) 98 04/05/19 23:28 116 04/05/19 22:07 123 130/79 04/05/19 21:00 Nasal Cannula 2.0 04/05/19 21:00 99.5 04/05/19 20:58 100.0 04/05/19 20:00 100.2 131 20 122/77 (92) 99 04/05/19 19:07 131 04/05/19 16:00 99.3 114 22 129/87 (101) 99 04/05/19 15:27 118 04/05/19 14:01 136 146/82 04/05/19 12:00 98.4 117 24 125/81 (96) 99 04/05/19 11:33 128 Height (Feet): 5 Height (Inches): 7.00 Weight (Pounds): 150 General Appearance: no acute distress HEENT: normocephalic Respiratory/Chest: lungs clear Cardiovascular: tachycardia Abdomen: soft, non tender, other - feeding Extremities: no edema Neurologic/Psychiatric: aphasia Laboratory Tests Test 04/06/19 03:25 White Blood Count 13.0 K/UL (4.8-10.8) H Red Blood Count 3.73 M/UL (4.70-6.10) L Hemoglobin 11.1 G/DL (14.2-18.0) L Hematocrit 32.8 % (42.0-52.0) L Mean Corpuscular Volume 88 FL (80-99) Mean Corpuscular Hemoglobin 29.9 PG (27.0-31.0) Mean Corpuscular Hemoglobin Concent 34.0 G/DL (32.0-36.0) Red Cell Distribution Width 12.3 % (11.6-14.8) Platelet Count 447 K/UL (150-450) Mean Platelet Volume 6.8 FL (6.5-10.1) Neutrophils (%) (Auto) 76.0 % (45.0-75.0) H Lymphocytes (%) (Auto) 15.8 % (20.0-45.0) L Monocytes (%) (Auto) 6.4 % (1.0-10.0) Eosinophils (%) (Auto) 1.0 % (0.0-3.0) Basophils (%) (Auto) 0.7 % (0.0-2.0) Sodium Level 148 MMOL/L (136-145) H Potassium Level 4.1 MMOL/L (3.5-5.1) Chloride Level 112 MMOL/L (98-107) H Carbon Dioxide Level 24 MMOL/L (21-32) Anion Gap 12 mmol/L (5-15) Blood Urea Nitrogen 18 mg/dL (7-18) Creatinine 0.5 MG/DL (0.55-1.30) L Estimat Glomerular Filtration Rate > 60 mL/min (>60) Glucose Level 149 MG/DL (74-106) H Calcium Level 8.1 MG/DL (8.5-10.1) L Phosphorus Level 2.3 MG/DL (2.5-4.9) L Magnesium Level 2.2 MG/DL (1.8-2.4) Current Medications Medications (Trade) Dose Ordered Sig/Yohannes Route PRN Reason Start Time Stop Time Status Last Admin Dose Admin Acetaminophen (Tylenol) 650 mg Q6H PRN GT Mild Pain/Temp > 100.5 04/05/19 03:00 04/20/19 02:59 04/05/19 20:28 Barium Sulfate (Readi-Cat 2) 450 ml NOW PRN ORAL Radiology Procedure 04/04/19 21:30 04/06/19 21:29 Bisacodyl (Dulcolax) 10 mg DAILY PRN RECTAL Constipation 04/05/19 09:00 04/22/19 18:59 Docusate Sodium (Colace) 100 mg TID GT 04/05/19 09:00 04/23/19 08:59 Iopamidol (Isovue-300 100ml) 100 ml NOW PRN INJ Radiology Procedure 04/04/19 21:30 04/06/19 21:29 Lansoprazole (Prevacid) 30 mg DAILY GT 04/05/19 09:00 04/26/19 15:14 04/05/19 09:02 Levetiracetam (Keppra) 1,000 mg Q12HR ORAL 04/05/19 09:00 04/20/19 08:59 04/05/19 20:27 Loperamide HCl (Imodium) 2 mg Q6H PRN GT Diarrhea 04/04/19 21:30 05/04/19 21:29 Meropenem 1 gm/ Sodium Chloride 55 ml @ 110 mls/hr EVERY 8 HOURS IVPB 04/04/19 22:00 04/09/19 13:59 04/06/19 05:44 Metoprolol Tartrate (Lopressor) 50 mg Q8HR GT 04/04/19 22:00 04/26/19 20:59 04/06/19 05:44 Polyethylene Glycol (Miralax) 17 gm DAILY NG 04/05/19 09:00 04/20/19 08:59 Sennosides (Senokot) 17.2 mg BEDTIME GT 04/05/19 21:00 04/20/19 20:59 04/05/19 20:27 Yash Shay MD Apr 06, 2019 09:27
[2019-04-06] MEDS: levETIRAcetam 500mg/5ml Liquid ORAL SCH ×2 (09:36→21:28)
[2019-04-06 12:00] VITALS: BP 121/84
--- NOTE | 2019-04-06 12:33 | Cardiac Electrophysiology PN ---
Assessment/Plan Assessment/Plan 1. Sinus tachycardia due to fever and severe dehydration. Increase Metoprolol to 100 bid. EF 60%. 2. Hypertension. On Metoprolol 100 bid 3. Sepsis, on IV antibiotic per Dr. Shay. 4. Dysphagia, status post PEG 5. Anoxic brain injury and seizures. MRI brain negative for any acute findings On Keppra 6. Acute renal failure and dehydration, resolved Cr 0.7 7. Possible SBO by CT abdomen. FU Dr Ospina. DW RN Subjective Subjective Nonverbal but alert. Mother at bedside. Sinus tach 130s. Objective Last 24 Hour Vital Signs Date Time Temp Pulse Resp B/P (MAP) Pulse Ox O2 Delivery O2 Flow Rate FiO2 04/06/19 09:00 Nasal Cannula 2.0 04/06/19 08:00 99.8 130 24 110/68 (82) 97 04/06/19 07:52 129 04/06/19 05:44 128 130/72 04/06/19 04:00 Nasal Cannula 2.0 04/06/19 04:00 98.0 132 20 129/75 (93) 99 04/06/19 03:20 120 04/06/19 00:00 Nasal Cannula 2.0 04/06/19 00:00 100.0 123 21 126/80 (95) 98 04/05/19 23:28 116 04/05/19 22:07 123 130/79 04/05/19 21:00 Nasal Cannula 2.0 04/05/19 21:00 99.5 04/05/19 20:58 100.0 04/05/19 20:00 100.2 131 20 122/77 (92) 99 04/05/19 19:07 131 04/05/19 16:00 99.3 114 22 129/87 (101) 99 04/05/19 15:27 118 04/05/19 14:01 136 146/82 Intake and Output 04/05/19 04/06/19 18:59 06:59 Intake Total 1430.604 ml 1331.944 ml Output Total 900 ml Balance 530.604 ml 1331.944 ml Free Water 250 ml IV Total 1130.604 ml 361.944 ml Tube Feeding 300 ml 720 ml Output Urine Total 900 ml # Voids 3 # Bowel Movements 3 2 Laboratory Tests Test 6/12/19 03:25 White Blood Count 13.0 K/UL (4.8-10.8) H Red Blood Count 3.73 M/UL (4.70-6.10) L Hemoglobin 11.1 G/DL (14.2-18.0) L Hematocrit 32.8 % (42.0-52.0) L Mean Corpuscular Volume 88 FL (80-99) Mean Corpuscular Hemoglobin 29.9 PG (27.0-31.0) Mean Corpuscular Hemoglobin Concent 34.0 G/DL (32.0-36.0) Red Cell Distribution Width 12.3 % (11.6-14.8) Platelet Count 447 K/UL (150-450) Mean Platelet Volume 6.8 FL (6.5-10.1) Neutrophils (%) (Auto) 76.0 % (45.0-75.0) H Lymphocytes (%) (Auto) 15.8 % (20.0-45.0) L Monocytes (%) (Auto) 6.4 % (1.0-10.0) Eosinophils (%) (Auto) 1.0 % (0.0-3.0) Basophils (%) (Auto) 0.7 % (0.0-2.0) Sodium Level 148 MMOL/L (136-145) H Potassium Level 4.1 MMOL/L (3.5-5.1) Chloride Level 112 MMOL/L (98-107) H Carbon Dioxide Level 24 MMOL/L (21-32) Anion Gap 12 mmol/L (5-15) Blood Urea Nitrogen 18 mg/dL (7-18) Creatinine 0.5 MG/DL (0.55-1.30) L Estimat Glomerular Filtration Rate > 60 mL/min (>60) Glucose Level 149 MG/DL (74-106) H Calcium Level 8.1 MG/DL (8.5-10.1) L Phosphorus Level 2.3 MG/DL (2.5-4.9) L Magnesium Level 2.2 MG/DL (1.8-2.4) Objective HEAD AND NECK: No JVD. Old tracheostomy site closed. LUNGS: Coarse rhonchi. CARDIOVASCULAR: Tachy S1 and S2 with no gallop. ABDOMEN: Soft, status post G-tube. EXTREMITIES: No pitting edema. Jim Manjarrez MD Apr 06, 2019 12:33
[2019-04-06] MEDS: Acetaminophen 650mg/20.3ml GT PRN (13:35)
--- NOTE | 2019-04-06 14:06 | Nephrology Progress Note ---
Assessment/Plan Problem List: (1) Acute renal failure (2) Acute prerenal azotemia Assessment: dehydration (3) Dehydration (4) Seizure disorder (5) Anoxic brain injury (6) Sepsis (7) Hypercalcemia Assessment Renal failure: Dehydration Hypernatremia, Free water deficit Sepsis Acute metabolic encephalopathy PEG Sz disorder HTN Plan D5W Phos , K , Lytes adjustments lowering Cr High Vanco level , now lowering One dose Aredia for high Ca- Calcium now in range- IV adjusted. K and Phos and Mag as needed monitor lytes GT feeding NS IV Fluids Coreg GT change to lopressor monitor electrolytes per orders Subjective ROS Limited/Unobtainable: No Objective Objective Last 24 Hour Vital Signs Date Time Temp Pulse Resp B/P (MAP) Pulse Ox O2 Delivery O2 Flow Rate FiO2 04/06/19 12:00 102.4 135 24 121/84 (96) 98 04/06/19 09:00 Nasal Cannula 2.0 04/06/19 08:00 99.8 130 24 110/68 (82) 97 04/06/19 07:52 129 04/06/19 05:44 128 130/72 04/06/19 04:00 Nasal Cannula 2.0 04/06/19 04:00 98.0 132 20 129/75 (93) 99 04/06/19 03:20 120 04/06/19 00:00 Nasal Cannula 2.0 04/06/19 00:00 100.0 123 21 126/80 (95) 98 04/05/19 23:28 116 04/05/19 22:07 123 130/79 04/05/19 21:00 Nasal Cannula 2.0 04/05/19 21:00 99.5 04/05/19 20:58 100.0 04/05/19 20:00 100.2 131 20 122/77 (92) 99 04/05/19 19:07 131 04/05/19 16:00 99.3 114 22 129/87 (101) 99 04/05/19 15:27 118 Intake and Output 04/05/19 04/06/19 18:59 06:59 Intake Total 1430.604 ml 1331.944 ml Output Total 900 ml Balance 530.604 ml 1331.944 ml Free Water 250 ml IV Total 1130.604 ml 361.944 ml Tube Feeding 300 ml 720 ml Output Urine Total 900 ml # Voids 3 # Bowel Movements 3 2 Laboratory Tests 04/06/19 03:25: White Blood Count 13.0H, Red Blood Count 3.73L, Hemoglobin 11.1L, Hematocrit 32.8L, Mean Corpuscular Volume 88, Mean Corpuscular Hemoglobin 29.9, Mean Corpuscular Hemoglobin Concent 34.0, Red Cell Distribution Width 12.3, Platelet Count 447, Mean Platelet Volume 6.8, Neutrophils (%) (Auto) 76.0H, Lymphocytes ( %) (Auto) 15.8L, Monocytes (%) (Auto) 6.4, Eosinophils (%) (Auto) 1.0, Basophils (%) (Auto) 0.7, Sodium Level 148H, Potassium Level 4.1, Chloride Level 112H, Carbon Dioxide Level 24, Anion Gap 12, Blood Urea Nitrogen 18, Creatinine 0.5L, Estimat Glomerular Filtration Rate > 60, Glucose Level 149H, Calcium Level 8.1L, Phosphorus Level 2.3L, Magnesium Level 2.2 Height (Feet): 5 Height (Inches): 7.00 Weight (Pounds): 150 General Appearance: no apparent distress, lethargic Cardiovascular: tachycardia Respiratory/Chest: decreased breath sounds Abdomen: soft Objective no change Janes Barros MD Apr 06, 2019 14:06
[2019-04-06] MEDS: metroNIDAZOLE 500mg tab GT SCH ×2 (14:20→21:29)
--- NOTE | 2019-04-06 15:13 | Surgery Progress Note ---
Surgery Progress Note Subjective Additional Comments no acute events. febrile. leukocytosis trending down. Objective Last 24 Hour Vital Signs Date Time Temp Pulse Resp B/P (MAP) Pulse Ox O2 Delivery O2 Flow Rate FiO2 04/06/19 14:05 100.5 04/06/19 12:00 102.4 135 24 121/84 (96) 98 04/06/19 11:47 138 04/06/19 09:00 Nasal Cannula 2.0 04/06/19 08:00 99.8 130 24 110/68 (82) 97 04/06/19 07:52 129 04/06/19 05:44 128 130/72 04/06/19 04:00 Nasal Cannula 2.0 04/06/19 04:00 98.0 132 20 129/75 (93) 99 04/06/19 03:20 120 04/06/19 00:00 Nasal Cannula 2.0 04/06/19 00:00 100.0 123 21 126/80 (95) 98 04/05/19 23:28 116 04/05/19 22:07 123 130/79 04/05/19 21:00 Nasal Cannula 2.0 04/05/19 21:00 99.5 04/05/19 20:00 100.2 131 20 122/77 (92) 99 04/05/19 19:07 131 04/05/19 16:00 99.3 114 22 129/87 (101) 99 04/05/19 15:27 118 I&O Intake and Output 04/05/19 04/06/19 18:59 06:59 Intake Total 1430.604 ml 1331.944 ml Output Total 900 ml Balance 530.604 ml 1331.944 ml Free Water 250 ml IV Total 1130.604 ml 361.944 ml Tube Feeding 300 ml 720 ml Output Urine Total 900 ml # Voids 3 # Bowel Movements 3 2 Dressing: saturated Wound: other Drains: other Cardiovascular: RSR Respiratory: decreased breath sounds Abdomen: soft, present bowel sounds, non-distended Extremities: no cyanosis Laboratory Tests Test 04/06/19 03:25 White Blood Count 13.0 K/UL (4.8-10.8) H Red Blood Count 3.73 M/UL (4.70-6.10) L Hemoglobin 11.1 G/DL (14.2-18.0) L Hematocrit 32.8 % (42.0-52.0) L Mean Corpuscular Volume 88 FL (80-99) Mean Corpuscular Hemoglobin 29.9 PG (27.0-31.0) Mean Corpuscular Hemoglobin Concent 34.0 G/DL (32.0-36.0) Red Cell Distribution Width 12.3 % (11.6-14.8) Platelet Count 447 K/UL (150-450) Mean Platelet Volume 6.8 FL (6.5-10.1) Neutrophils (%) (Auto) 76.0 % (45.0-75.0) H Lymphocytes (%) (Auto) 15.8 % (20.0-45.0) L Monocytes (%) (Auto) 6.4 % (1.0-10.0) Eosinophils (%) (Auto) 1.0 % (0.0-3.0) Basophils (%) (Auto) 0.7 % (0.0-2.0) Sodium Level 148 MMOL/L (136-145) H Potassium Level 4.1 MMOL/L (3.5-5.1) Chloride Level 112 MMOL/L (98-107) H Carbon Dioxide Level 24 MMOL/L (21-32) Anion Gap 12 mmol/L (5-15) Blood Urea Nitrogen 18 mg/dL (7-18) Creatinine 0.5 MG/DL (0.55-1.30) L Estimat Glomerular Filtration Rate > 60 mL/min (>60) Glucose Level 149 MG/DL (74-106) H Calcium Level 8.1 MG/DL (8.5-10.1) L Phosphorus Level 2.3 MG/DL (2.5-4.9) L Magnesium Level 2.2 MG/DL (1.8-2.4) Plan Problems: (1) Acute prerenal azotemia (2) Weakness generalized (3) Schizoaffective disorder (4) Acute hypernatremia (5) Dehydration (6) Seizure disorder (7) Sepsis Assessment & Plan: febrile, tachycardia, leukocytosis etiology unknown exam without significant pathology cultures negative thus far cxr okay ct noted No evidence of bowel obstruction. Liquefied stool in the colon and mild distention of the rectum. Correlate for diarrhea and gastroenteritis. 1 cm left adrenal mass probably adenoma. MRI evaluation may be of benefit. Gastrostomy. -trend labs venous duplex studies negative will follow with recs thank you (8) Anoxic brain injury (9) Encephalopathy due to metabolic factor or toxin (10) Acute metabolic encephalopathy (11) Acute renal failure (12) Hypercalcemia (13) Diarrhea (14) SBO (small bowel obstruction) Assessment & Plan: CT with Ingested contrast is traversed only a short distance into the small bowel. There is diffuse mild dilatation of the proximal to mid small bowel, collapsed distal small bowel loops. Uncertain point of transition although probably in the lower mid abdomen/upper pelvis. There is only minimal forward transit of contrast There is mild distention of the distal sigmoid and rectum by what appears to be fluid contents. No downstream obstructive lesion demonstrated. There is colonic diverticulosis. The appendix is normal. No free or loculated intraperitoneal gas or fluid is evident. There is edema of the presacral fat. There are surgical clips in the anterior gastric wall. There is a gastrostomy in appropriate position in the gastric body. The distal esophagus and duodenum are unremarkable. Lack of IV contrast limits assessment of the solid organs. Liver, gallbladder, bile ducts, pancreas, spleen, adrenals are unremarkable. 1 cm exophytic cyst comes off of the pole region of the left kidney, as well as a smaller exophytic subcentimeter low-attenuation lesion which is too small to characterize. There is also a very subtle 2 cm fluid attenuation cyst coming off of the lower pole. The right kidney is unremarkable. No pelvic mass or adenopathy. follow up KUB without pathology now with loose stools c diff negative appreciate GI input okay for tube feeds as above thank you (15) Anemia (16) Dysphagia (17) Feeding by G-tube Sean Thornton Apr 06, 2019 15:13
[2019-04-06 16:00] VITALS: BP 128/87
[2019-04-06] MEDS ORDERED: NS 500ML ONE (16:26)
[2019-04-06] MEDS ORDERED: Tubing IV Secondary IV ONE (16:26)
[2019-04-06] MEDS ORDERED: NS 275ml ONE (16:26)
--- NOTE | 2019-04-06 19:58 | Neurology Progress Note ---
Interim History Interim History ROS Limited/Unobtainable: Yes Complaints: AMS Events: This visit was performed on April 06, [address] Jin Interim History Continues to be intermittently febrile with leukocytosis and tachycardia. Neuro exam stable. Objective Physical Exam Last Vital Signs Date Time Temp Pulse Resp B/P (MAP) Pulse Ox O2 Delivery O2 Flow Rate FiO2 04/06/19 16:00 100.9 134 24 128/87 (101) 100 04/06/19 09:00 Nasal Cannula 2.0 04/06/19 08:16 28 Laboratory Tests Test 04/06/19 03:25 White Blood Count 13.0 K/UL (4.8-10.8) H Red Blood Count 3.73 M/UL (4.70-6.10) L Hemoglobin 11.1 G/DL (14.2-18.0) L Hematocrit 32.8 % (42.0-52.0) L Mean Corpuscular Volume 88 FL (80-99) Mean Corpuscular Hemoglobin 29.9 PG (27.0-31.0) Mean Corpuscular Hemoglobin Concent 34.0 G/DL (32.0-36.0) Red Cell Distribution Width 12.3 % (11.6-14.8) Platelet Count 447 K/UL (150-450) Mean Platelet Volume 6.8 FL (6.5-10.1) Neutrophils (%) (Auto) 76.0 % (45.0-75.0) H Lymphocytes (%) (Auto) 15.8 % (20.0-45.0) L Monocytes (%) (Auto) 6.4 % (1.0-10.0) Eosinophils (%) (Auto) 1.0 % (0.0-3.0) Basophils (%) (Auto) 0.7 % (0.0-2.0) Sodium Level 148 MMOL/L (136-145) H Potassium Level 4.1 MMOL/L (3.5-5.1) Chloride Level 112 MMOL/L (98-107) H Carbon Dioxide Level 24 MMOL/L (21-32) Anion Gap 12 mmol/L (5-15) Blood Urea Nitrogen 18 mg/dL (7-18) Creatinine 0.5 MG/DL (0.55-1.30) L Estimat Glomerular Filtration Rate > 60 mL/min (>60) Glucose Level 149 MG/DL (74-106) H Calcium Level 8.1 MG/DL (8.5-10.1) L Phosphorus Level 2.3 MG/DL (2.5-4.9) L Magnesium Level 2.2 MG/DL (1.8-2.4) General: well developed, well nourished Head: normocophalic Neck: other EENT: benign, other Neurologic Exam Mental Status: other Speech: other Language: other Cranial Nerve II: fundus normal, visual roberts, no papilledema, other Cranial Nerves III, IV, : PERRLA, EOMI, other Cranial Nerve V: other Cranial Nerve VII: other Cranial Nerve VIII: other Cranial Nerve IX: other Cranial Nerve X: other Cranial Nerve XI: other Cranial Nerve XII: other Motor System: other Sensory: other Coordination: other - Patient has tracheostomy scar at throat, is tracking intermittently with his eyes, he doesn't follow commands, has rigid tone and spasticity in all extremities and triple flexes in LEs bilaterally with mild decerebrate posturing in UEs on noxious stim. Deep Tendon Reflexes: 1+ bicep (L), 1+ bicep (R), 1+ tricep (L), 1+ tricep (R) , 1+ brachioradialis (L), 1+ brachioradialis (R), 1+ knee (L), 1+ knee (R), 1+ ankle (L), 1+ ankle (R) Reflexes: flexor plantar (L), flexor plantar (R); extensor plantar (L), extensor plantar (R) Objective Patient has tracheostomy scar at throat, is tracking intermittently with his eyes, he doesn't follow commands, has rigid tone and spasticity in all extremities and triple flexes in LEs bilaterally with mild decerebrate posturing in UEs on noxious stim. He has nystagmus on gaze at rest bilaterally - He is much more alert still with fever now. Impression/Recommendations Problems: (1) Seizure disorder (2) Anoxic brain injury (3) Sepsis (4) Acute hypernatremia (5) Dehydration (6) Encephalopathy due to metabolic factor or toxin (7) Acute metabolic encephalopathy (8) Weakness generalized (9) Schizoaffective disorder Status: progressing, unchanged Recommendations Q4 Hour obs Na 135-145 = water flushes to PEG feeding schedule Telemetry monitoring Maintain normothermia with Tylenol and cooling blanket Abx as per ID Please consider NS instead of D5 IV fluid Maintain normoglycemia with ISS SBP<140 Continue Keppra 1000 mg BID - Ativan 1mg PRN for seizure Replete/ Replace lytes Cultures Negative Abx as per ID Chey Long N.P. Apr 06, 2019 19:58
[2019-04-06 20:00] VITALS: BP 118/78
[2019-04-06] MEDS: Sennosides 8.6mg tab GT SCH (21:00)
--- NOTE | 2019-04-06 21:42 | General Progress Note ---
Assessment/Plan Problem List: (1) Schizoaffective disorder ICD Codes: F25.9 - Schizoaffective disorder, unspecified SNOMED: 98782183 (2) Seizure disorder ICD Codes: G40.909 - Epilepsy, unspecified, not intractable, without status epilepticus SNOMED: 780418780 (3) Dehydration ICD Codes: E86.0 - Dehydration SNOMED: 19640965, 380736330 (4) Sepsis ICD Codes: A41.9 - Sepsis, unspecified organism SNOMED: 61940487, 933101114 Qualifiers: Qualified Codes: A41.9 - Sepsis, unspecified organism (5) Acute metabolic encephalopathy ICD Codes: G93.41 - Metabolic encephalopathy SNOMED: 16431993, 838101809 Status: progressing, unchanged Assessment/Plan: encephalopathy intermittent fever fever of unknown etiology abx per id afebrile no change reviewed chart Subjective ROS Limited/Unobtainable: Yes Allergies: Coded Allergies: No Known Allergies (Unverified , 08/20/18) Objective Last 24 Hour Vital Signs Date Time Temp Pulse Resp B/P (MAP) Pulse Ox O2 Delivery O2 Flow Rate FiO2 04/06/19 21:25 130 118/78 04/06/19 20:00 Nasal Cannula 2.0 04/06/19 20:00 98.2 130 20 118/78 (91) 100 04/06/19 16:00 100.9 134 24 128/87 (101) 100 04/06/19 15:23 136 04/06/19 14:05 100.5 04/06/19 12:00 102.4 135 24 121/84 (96) 98 04/06/19 11:47 138 04/06/19 09:00 Nasal Cannula 2.0 04/06/19 08:16 98 Nasal Cannula 2.0 28 04/06/19 08:00 99.8 130 24 110/68 (82) 97 04/06/19 07:52 129 04/06/19 05:44 128 130/72 04/06/19 04:00 Nasal Cannula 2.0 04/06/19 04:00 98.0 132 20 129/75 (93) 99 04/06/19 03:20 120 04/06/19 00:00 Nasal Cannula 2.0 04/06/19 00:00 100.0 123 21 126/80 (95) 98 04/05/19 23:28 116 04/05/19 22:07 123 130/79 Intake and Output 04/05/19 04/06/19 19:00 07:00 Intake Total 1637.548 ml 1185 ml Output Total 900 ml Balance 737.548 ml 1185 ml Free Water 250 ml IV Total 1277.548 ml 215 ml Tube Feeding 360 ml 720 ml Output Urine Total 900 ml # Voids 3 # Bowel Movements 3 2 Laboratory Tests 04/06/19 03:25: White Blood Count 13.0H, Red Blood Count 3.73L, Hemoglobin 11.1L, Hematocrit 32.8L, Mean Corpuscular Volume 88, Mean Corpuscular Hemoglobin 29.9, Mean Corpuscular Hemoglobin Concent 34.0, Red Cell Distribution Width 12.3, Platelet Count 447, Mean Platelet Volume 6.8, Neutrophils (%) (Auto) 76.0H, Lymphocytes ( %) (Auto) 15.8L, Monocytes (%) (Auto) 6.4, Eosinophils (%) (Auto) 1.0, Basophils (%) (Auto) 0.7, Sodium Level 148H, Potassium Level 4.1, Chloride Level 112H, Carbon Dioxide Level 24, Anion Gap 12, Blood Urea Nitrogen 18, Creatinine 0.5L, Estimat Glomerular Filtration Rate > 60, Glucose Level 149H, Calcium Level 8.1L, Phosphorus Level 2.3L, Magnesium Level 2.2 Height (Feet): 5 Height (Inches): 7.00 Weight (Pounds): 150 General Appearance: confused Cardiovascular: normal rate Respiratory/Chest: lungs clear Lenin Wyatt MD Apr 06, 2019 21:42
[2019-04-07] VITALS: BP 110/74
[2019-04-07 04:00] VITALS: BP 118/70
[2019-04-07] MEDS: Acetaminophen 650mg/20.3ml GT PRN ×3 (04:30→23:32)
[2019-04-07] MEDS: metroNIDAZOLE 500mg tab GT SCH ×3 (05:28→21:19)
[2019-04-07] MEDS: Meropenem 1 GM in NS 55 ML IVPB SCH (05:30)
[2019-04-07 08:00] VITALS: BP 120/54
--- NOTE | 2019-04-07 08:21 | General Progress Note ---
Assessment/Plan Problem List: (1) Anemia ICD Codes: D64.9 - Anemia, unspecified SNOMED: 888525997 (2) Dysphagia ICD Codes: R13.10 - Dysphagia, unspecified SNOMED: 45134948, 428796717 (3) Feeding by G-tube ICD Codes: Z93.1 - Gastrostomy status SNOMED: 857757079, 009522160, 116393963 (4) Anoxic brain injury ICD Codes: G93.1 - Anoxic brain damage, not elsewhere classified SNOMED: 101330127 (5) Seizure disorder ICD Codes: G40.909 - Epilepsy, unspecified, not intractable, without status epilepticus SNOMED: 942026337 (6) Schizoaffective disorder ICD Codes: F25.9 - Schizoaffective disorder, unspecified SNOMED: 21999446 Status: progressing, unchanged Assessment/Plan: no SBO per X ray and exam C. difficile negative GTF as tolerated to 60 cc Stop all stool softeners and laxatives Imodium as needed PPI Electrolyte correction Reglan as needed surgical input appreciated repeat labs in am Subjective ROS Limited/Unobtainable: No Allergies: Coded Allergies: No Known Allergies (Unverified , 08/20/18) Objective Last 24 Hour Vital Signs Date Time Temp Pulse Resp B/P (MAP) Pulse Ox O2 Delivery O2 Flow Rate FiO2 04/07/19 05:00 101.2 04/07/19 04:00 99.8 132 21 118/70 (86) 100 04/07/19 03:31 134 04/07/19 00:00 99.9 118 20 110/74 (86) 100 04/07/19 00:00 Nasal Cannula 2.0 04/06/19 23:23 111 04/06/19 21:25 130 118/78 04/06/19 20:00 Nasal Cannula 2.0 04/06/19 20:00 98.2 130 20 118/78 (91) 100 04/06/19 19:21 131 04/06/19 16:00 100.9 134 24 128/87 (101) 100 04/06/19 15:23 136 04/06/19 12:00 102.4 135 24 121/84 (96) 98 04/06/19 11:47 138 04/06/19 09:00 Nasal Cannula 2.0 Intake and Output 04/06/19 04/07/19 19:00 07:00 Intake Total 775 ml 1025 ml Output Total 900 ml 1400 ml Balance -125 ml -375 ml Free Water 250 ml IV Total 55 ml 55 ml Tube Feeding 720 ml 720 ml Output Urine Total 900 ml 1400 ml # Bowel Movements 1 Height (Feet): 5 Height (Inches): 7.00 Weight (Pounds): 150 General Appearance: no apparent distress EENT: normal ENT inspection Neck: supple Cardiovascular: normal rate Respiratory/Chest: decreased breath sounds Abdomen: normal bowel sounds, non tender, soft Extremities: non-tender Ruddy Ospina MD Apr 07, 2019 08:21
[2019-04-07] MEDS: levETIRAcetam 500mg/5ml Liquid ORAL SCH ×2 (08:47→21:18)
[2019-04-07] MEDS: Miralax 17gm pkt NG SCH (08:51)
[2019-04-07] MEDS: Docusate 100mg/10ml Liq GT SCH ×3 (08:51→18:00)
--- NOTE | 2019-04-07 10:32 | Infectious Diseases Prog Note ---
Assessment/Plan Assessment/Plan IMPRESSION: 1. Fever,? FUO 2. Leukocytosis 3. Tachycardia. 4. He has anoxic encephalopathy. 5. MRSA colonization. 6. Hypernatremia and azotemia. 7. Seizure disorder. 8. Hypertension. 9. enteritis 10. Diarrhea, c.difficile test negative RECOMMENDATION: discontinue Meropenem, Continue Flagyl Will f/u Blood culture Hold laxatives Start on Ibuprofen Subjective ROS Limited/Unobtainable: Yes Constitutional: Reports: fever Allergies: Coded Allergies: No Known Allergies (Unverified , 08/20/18) Objective Vital Signs Last 24 Hour Vital Signs Date Time Temp Pulse Resp B/P (MAP) Pulse Ox O2 Delivery O2 Flow Rate FiO2 04/07/19 09:00 Nasal Cannula 2.0 04/07/19 08:47 130 112/76 04/07/19 08:00 99.9 130 20 120/54 (76) 100 04/07/19 05:00 101.2 04/07/19 04:00 99.8 132 21 118/70 (86) 100 04/07/19 03:31 134 04/07/19 00:00 99.9 118 20 110/74 (86) 100 04/07/19 00:00 Nasal Cannula 2.0 04/06/19 23:23 111 04/06/19 21:25 130 118/78 04/06/19 20:00 Nasal Cannula 2.0 04/06/19 20:00 98.2 130 20 118/78 (91) 100 04/06/19 19:21 131 04/06/19 16:00 100.9 134 24 128/87 (101) 100 04/06/19 15:23 136 04/06/19 12:00 102.4 135 24 121/84 (96) 98 04/06/19 11:47 138 Height (Feet): 5 Height (Inches): 7.00 Weight (Pounds): 150 General Appearance: no acute distress HEENT: other - dry mouth Respiratory/Chest: lungs clear Cardiovascular: normal rate Abdomen: soft, non tender, other - GT feeding Extremities: no edema Neurologic/Psychiatric: alert Current Medications Medications (Trade) Dose Ordered Sig/Yohannes Route PRN Reason Start Time Stop Time Status Last Admin Dose Admin Acetaminophen (Tylenol) 650 mg Q6H PRN GT Mild Pain/Temp > 100.5 04/05/19 03:00 04/20/19 02:59 04/07/19 04:30 Bisacodyl (Dulcolax) 10 mg DAILY PRN RECTAL Constipation 04/05/19 09:00 04/22/19 18:59 Docusate Sodium (Colace) 100 mg TID GT 04/05/19 09:00 04/23/19 08:59 Lansoprazole (Prevacid) 30 mg DAILY GT 04/05/19 09:00 04/26/19 15:14 04/07/19 08:46 Levetiracetam (Keppra) 1,000 mg Q12HR ORAL 04/05/19 09:00 04/20/19 08:59 04/07/19 08:47 Loperamide HCl (Imodium) 2 mg Q6H PRN GT Diarrhea 04/04/19 21:30 05/04/19 21:29 Meropenem 1 gm/ Sodium Chloride 55 ml @ 110 mls/hr EVERY 8 HOURS IVPB 04/04/19 22:00 04/09/19 13:59 04/07/19 05:30 Metoprolol Tartrate (Lopressor) 100 mg EVERY 12 HOURS GT 04/06/19 21:00 04/26/19 20:59 04/07/19 08:47 Metronidazole (Flagyl) 500 mg Q8HR GT 04/06/19 14:00 04/13/19 13:59 04/07/19 05:28 Polyethylene Glycol (Miralax) 17 gm DAILY NG 04/05/19 09:00 04/20/19 08:59 Sennosides (Senokot) 17.2 mg BEDTIME GT 04/05/19 21:00 04/20/19 20:59 04/05/19 20:27 Yash Shay MD Apr 07, 2019 10:32
[2019-04-07] MEDS ORDERED: Ibuprofen Susp 100mg/5ml GT PRN (10:45)
--- NOTE | 2019-04-07 11:06 | Cardiac Electrophysiology PN ---
Assessment/Plan Assessment/Plan 1. Sinus tachycardia due to fever and severe dehydration. Better on Metoprolol to 100 bid. EF 60%. 2. Hypertension. On Metoprolol 100 bid 3. Sepsis, on IV antibiotic per Dr. Shay. 4. Dysphagia, status post PEG 5. Anoxic brain injury and seizures. MRI brain negative for any acute findings On Keppra 6. Acute renal failure and dehydration, resolved Cr 0.7 7. Possible SBO by CT abdomen. FU Dr Ospina. DW RN Subjective Subjective Nonverbal in sinus tach 110-120. Objective Last 24 Hour Vital Signs Date Time Temp Pulse Resp B/P (MAP) Pulse Ox O2 Delivery O2 Flow Rate FiO2 04/07/19 09:00 Nasal Cannula 2.0 04/07/19 08:47 130 112/76 04/07/19 08:00 99.9 130 20 120/54 (76) 100 04/07/19 07:41 130 04/07/19 05:00 101.2 04/07/19 04:00 99.8 132 21 118/70 (86) 100 04/07/19 03:31 134 04/07/19 00:00 99.9 118 20 110/74 (86) 100 04/07/19 00:00 Nasal Cannula 2.0 04/06/19 23:23 111 04/06/19 21:25 130 118/78 04/06/19 20:00 Nasal Cannula 2.0 04/06/19 20:00 98.2 130 20 118/78 (91) 100 04/06/19 19:21 131 04/06/19 16:00 100.9 134 24 128/87 (101) 100 04/06/19 15:23 136 04/06/19 12:00 102.4 135 24 121/84 (96) 98 04/06/19 11:47 138 Intake and Output 04/06/19 04/07/19 19:00 07:00 Intake Total 775 ml 1025 ml Output Total 900 ml 1400 ml Balance -125 ml -375 ml Free Water 250 ml IV Total 55 ml 55 ml Tube Feeding 720 ml 720 ml Output Urine Total 900 ml 1400 ml # Bowel Movements 1 Objective HEAD AND NECK: No JVD. Old tracheostomy site closed. LUNGS: Coarse rhonchi. CARDIOVASCULAR: Tachy S1 and S2 with no gallop. ABDOMEN: Soft, status post G-tube. EXTREMITIES: No pitting edema. Jim Manjarrez MD Apr 07, 2019 11:06
[2019-04-07 12:00] VITALS: BP 110/69
--- NOTE | 2019-04-07 12:24 | Surgery Progress Note ---
Surgery Progress Note Subjective Additional Comments Patient seen and examined at bedside. No acute events. Patient continues to remain febrile and tachycardic. Labs today pending. CODE STATUS as above. Microbiology remains negative Objective Last 24 Hour Vital Signs Date Time Temp Pulse Resp B/P (MAP) Pulse Ox O2 Delivery O2 Flow Rate FiO2 04/07/19 09:00 Nasal Cannula 2.0 04/07/19 08:47 130 112/76 04/07/19 08:00 99.9 130 20 120/54 (76) 100 04/07/19 07:41 130 04/07/19 05:00 101.2 04/07/19 04:00 99.8 132 21 118/70 (86) 100 04/07/19 03:31 134 04/07/19 00:00 99.9 118 20 110/74 (86) 100 04/07/19 00:00 Nasal Cannula 2.0 04/06/19 23:23 111 04/06/19 21:25 130 118/78 04/06/19 20:00 Nasal Cannula 2.0 04/06/19 20:00 98.2 130 20 118/78 (91) 100 04/06/19 19:21 131 04/06/19 16:00 100.9 134 24 128/87 (101) 100 04/06/19 15:23 136 I&O Intake and Output 04/06/19 04/07/19 19:00 07:00 Intake Total 775 ml 1025 ml Output Total 900 ml 1400 ml Balance -125 ml -375 ml Free Water 250 ml IV Total 55 ml 55 ml Tube Feeding 720 ml 720 ml Output Urine Total 900 ml 1400 ml # Bowel Movements 1 Dressing: other Wound: other Drains: other Cardiovascular: RSR Respiratory: decreased breath sounds Abdomen: soft, present bowel sounds, non-distended Extremities: no cyanosis Plan Problems: (1) Acute prerenal azotemia (2) Weakness generalized (3) Schizoaffective disorder (4) Acute hypernatremia (5) Dehydration (6) Seizure disorder (7) Sepsis Assessment & Plan: febrile, tachycardia, leukocytosis etiology unknown exam without significant pathology cultures negative thus far cxr okay ct noted No evidence of bowel obstruction. Liquefied stool in the colon and mild distention of the rectum. Correlate for diarrhea and gastroenteritis. 1 cm left adrenal mass probably adenoma. MRI evaluation may be of benefit. Gastrostomy. -trend labs venous duplex studies negative will follow with recs thank you (8) Anoxic brain injury (9) Encephalopathy due to metabolic factor or toxin (10) Acute metabolic encephalopathy (11) Acute renal failure (12) Hypercalcemia (13) Diarrhea (14) SBO (small bowel obstruction) Assessment & Plan: CT with Ingested contrast is traversed only a short distance into the small bowel. There is diffuse mild dilatation of the proximal to mid small bowel, collapsed distal small bowel loops. Uncertain point of transition although probably in the lower mid abdomen/upper pelvis. There is only minimal forward transit of contrast There is mild distention of the distal sigmoid and rectum by what appears to be fluid contents. No downstream obstructive lesion demonstrated. There is colonic diverticulosis. The appendix is normal. No free or loculated intraperitoneal gas or fluid is evident. There is edema of the presacral fat. There are surgical clips in the anterior gastric wall. There is a gastrostomy in appropriate position in the gastric body. The distal esophagus and duodenum are unremarkable. Lack of IV contrast limits assessment of the solid organs. Liver, gallbladder, bile ducts, pancreas, spleen, adrenals are unremarkable. 1 cm exophytic cyst comes off of the pole region of the left kidney, as well as a smaller exophytic subcentimeter low-attenuation lesion which is too small to characterize. There is also a very subtle 2 cm fluid attenuation cyst coming off of the lower pole. The right kidney is unremarkable. No pelvic mass or adenopathy. follow up KUB without pathology now with loose stools c diff negative appreciate GI input okay for tube feeds as above thank you (15) Anemia (16) Dysphagia (17) Feeding by G-tube Sean Thornton Apr 07, 2019 12:24
--- NOTE | 2019-04-07 14:49 | Nephrology Progress Note ---
Assessment/Plan Problem List: (1) Acute renal failure (2) Acute prerenal azotemia Assessment: dehydration (3) Dehydration (4) Seizure disorder (5) Anoxic brain injury (6) Sepsis (7) Hypercalcemia Assessment Renal failure: Dehydration Hypernatremia, Free water deficit Sepsis Acute metabolic encephalopathy PEG Sz disorder HTN Plan D5W Phos , K , Lytes adjustments lowering Cr High Vanco level , now lowering One dose Aredia for high Ca- Calcium now in range- IV adjusted. K and Phos and Mag as needed monitor lytes GT feeding NS IV Fluids Coreg GT change to lopressor monitor electrolytes per orders Subjective ROS Limited/Unobtainable: No Objective Objective Last 24 Hour Vital Signs Date Time Temp Pulse Resp B/P (MAP) Pulse Ox O2 Delivery O2 Flow Rate FiO2 04/07/19 12:27 97.0 04/07/19 12:00 100.8 116 17 110/69 (83) 100 04/07/19 11:40 113 04/07/19 09:00 Nasal Cannula 2.0 04/07/19 08:47 130 112/76 04/07/19 08:00 99.9 130 20 120/54 (76) 100 04/07/19 07:41 130 04/07/19 06:44 99 Nasal Cannula 2.0 28 04/07/19 04:00 99.8 132 21 118/70 (86) 100 04/07/19 03:31 134 04/07/19 00:00 99.9 118 20 110/74 (86) 100 04/07/19 00:00 Nasal Cannula 2.0 04/06/19 23:23 111 04/06/19 21:25 130 118/78 04/06/19 20:00 Nasal Cannula 2.0 04/06/19 20:00 98.2 130 20 118/78 (91) 100 04/06/19 19:21 131 04/06/19 16:00 100.9 134 24 128/87 (101) 100 04/06/19 15:23 136 Intake and Output 04/06/19 04/07/19 19:00 07:00 Intake Total 775 ml 1025 ml Output Total 900 ml 1400 ml Balance -125 ml -375 ml Free Water 250 ml IV Total 55 ml 55 ml Tube Feeding 720 ml 720 ml Output Urine Total 900 ml 1400 ml # Bowel Movements 1 Height (Feet): 5 Height (Inches): 7.00 Weight (Pounds): 150 General Appearance: no apparent distress Cardiovascular: tachycardia Respiratory/Chest: decreased breath sounds Abdomen: distended Objective no change Janes Barros MD Apr 07, 2019 14:49
[2019-04-07 16:00] VITALS: BP 108/71
[2019-04-07 20:00] VITALS: BP 120/70
[2019-04-07] MEDS: Sennosides 8.6mg tab GT SCH (21:18)
--- NOTE | 2019-04-07 22:10 | General Progress Note ---
Assessment/Plan Problem List: (1) Schizoaffective disorder ICD Codes: F25.9 - Schizoaffective disorder, unspecified SNOMED: 29195817 (2) Seizure disorder ICD Codes: G40.909 - Epilepsy, unspecified, not intractable, without status epilepticus SNOMED: 603959718 (3) Dehydration ICD Codes: E86.0 - Dehydration SNOMED: 83232219, 659457690 (4) Sepsis ICD Codes: A41.9 - Sepsis, unspecified organism SNOMED: 91557670, 334954085 Qualifiers: Qualified Codes: A41.9 - Sepsis, unspecified organism (5) Acute metabolic encephalopathy ICD Codes: G93.41 - Metabolic encephalopathy SNOMED: 16616734, 609244874 Status: progressing, unchanged Assessment/Plan: reviewed chart and labs and meds afebrile intermittent fever fever of unknown etiology confused lethargic Subjective ROS Limited/Unobtainable: Yes Allergies: Coded Allergies: No Known Allergies (Unverified , 08/20/18) Objective Last 24 Hour Vital Signs Date Time Temp Pulse Resp B/P (MAP) Pulse Ox O2 Delivery O2 Flow Rate FiO2 04/07/19 21:19 128 120/70 04/07/19 21:00 Nasal Cannula 2.0 04/07/19 20:00 100.0 128 20 120/70 (87) 100 04/07/19 19:13 125 04/07/19 16:00 100.3 118 20 108/71 (83) 98 04/07/19 15:30 119 04/07/19 12:27 97.0 04/07/19 12:00 100.8 116 17 110/69 (83) 100 04/07/19 11:40 113 04/07/19 09:00 Nasal Cannula 2.0 04/07/19 08:47 130 112/76 04/07/19 08:00 99.9 130 20 120/54 (76) 100 04/07/19 07:41 130 04/07/19 06:44 99 Nasal Cannula 2.0 28 04/07/19 04:00 99.8 132 21 118/70 (86) 100 04/07/19 03:31 134 04/07/19 00:00 99.9 118 20 110/74 (86) 100 04/07/19 00:00 Nasal Cannula 2.0 04/06/19 23:23 111 Intake and Output 04/06/19 04/07/19 18:59 06:59 Intake Total 775 ml 975 ml Output Total 900 ml 1400 ml Balance -125 ml -425 ml Free Water 200 ml IV Total 55 ml 55 ml Tube Feeding 720 ml 720 ml Output Urine Total 900 ml 1400 ml # Bowel Movements 1 Height (Feet): 5 Height (Inches): 7.00 Weight (Pounds): 150 General Appearance: confused Cardiovascular: normal rate Respiratory/Chest: lungs clear Lenin Wyatt MD Apr 07, 2019 22:10
--- NOTE | 2019-04-07 23:45 | Neurology Progress Note ---
Interim History Interim History ROS Limited/Unobtainable: Yes Complaints: AMS Events: This visit was performed on April 07, [address] Jin Interim History Tachycardic, febrile, still with leukocytosis. Review of Systems All Systems: reviewed and negative except above Objective Physical Exam Last Vital Signs Date Time Temp Pulse Resp B/P (MAP) Pulse Ox O2 Delivery O2 Flow Rate FiO2 04/07/19 21:19 128 120/70 04/07/19 21:00 Nasal Cannula 2.0 04/07/19 20:37 98 28 04/07/19 20:00 100.0 20 General: well developed, well nourished Head: normocophalic Neck: other EENT: benign, other Neurologic Exam Mental Status: other Speech: other Language: other Cranial Nerve II: fundus normal, visual roberts, no papilledema, other Cranial Nerves III, IV, : PERRLA, EOMI, other Cranial Nerve V: other Cranial Nerve VII: other Cranial Nerve VIII: other Cranial Nerve IX: other Cranial Nerve X: other Cranial Nerve XI: other Cranial Nerve XII: other Motor System: other Sensory: other Coordination: other - Patient has tracheostomy scar at throat, is tracking intermittently with his eyes, he doesn't follow commands, has rigid tone and spasticity in all extremities and triple flexes in LEs bilaterally with mild decerebrate posturing in UEs on noxious stim. Deep Tendon Reflexes: 1+ bicep (L), 1+ bicep (R), 1+ tricep (L), 1+ tricep (R) , 1+ brachioradialis (L), 1+ brachioradialis (R), 1+ knee (L), 1+ knee (R), 1+ ankle (L), 1+ ankle (R) Reflexes: flexor plantar (L), flexor plantar (R); extensor plantar (L), extensor plantar (R) Objective Patient has tracheostomy scar at throat, is tracking intermittently with his eyes, he doesn't follow commands, has rigid tone and spasticity in all extremities and triple flexes in LEs bilaterally with mild decerebrate posturing in UEs on noxious stim. He has nystagmus on gaze at rest bilaterally - He is much more alert still with fever now. Impression/Recommendations Problems: (1) Seizure disorder (2) Anoxic brain injury (3) Sepsis (4) Acute hypernatremia (5) Dehydration (6) Encephalopathy due to metabolic factor or toxin (7) Acute metabolic encephalopathy (8) Weakness generalized (9) Schizoaffective disorder Status: progressing, unchanged Recommendations Q4 Hour obs Na 135-145 = water flushes to PEG feeding schedule Telemetry monitoring Maintain normothermia with Tylenol and cooling blanket Abx as per ID Please consider NS instead of D5 IV fluid Maintain normoglycemia with ISS SBP<140 Continue Keppra 1000 mg BID - Ativan 1mg PRN for seizure Replete/ Replace lytes Cultures Negative Chey Long N.P. Apr 07, 2019 23:45
[2019-04-08] VITALS (7 sets, daily range): BP systolic 105–147; BP diastolic 60–78
[2019-04-08] MEDS: metroNIDAZOLE 500mg tab GT SCH ×3 (05:18→21:39)
[2019-04-08 05:44] LABS: BASOPHILS % (AUTO) 0.8 % (0.0-2.0); HEMOGLOBIN 11.1 G/DL (14.2-18.0); LYMPHOCYTES % (AUTO) 20.1 % (20.0-45.0); MEAN CORPUSCULAR VOLUME 89 FL (80-99); MONOCYTES % (AUTO) 6.3 % (1.0-10.0); NEUTROPHILS % (AUTO) 69.8 % (45.0-75.0); PLATELET COUNT 457 K/UL (150-450); RED BLOOD COUNT 3.73 M/UL (4.70-6.10); RED CELL DISTRIBUTION WIDTH 12.6 % (11.6-14.8)
[2019-04-08 06:30] LABS: ANION GAP 11 mmol/L (5-15); BLOOD UREA NITROGEN 25 mg/dL (7-18); CALCIUM 9.2 MG/DL (8.5-10.1); CARBON DIOXIDE 25 MMOL/L (21-32); CHLORIDE 114 MMOL/L (98-107); CREATININE 0.7 MG/DL (0.55-1.30); POTASSIUM 3.7 MMOL/L (3.5-5.1); SODIUM 150 MMOL/L (136-145)
[2019-04-08] MEDS: Docusate 100mg/10ml Liq GT SCH ×3 (08:16→17:21)
[2019-04-08] MEDS: levETIRAcetam 500mg/5ml Liquid ORAL SCH ×2 (08:16→21:39)
[2019-04-08] MEDS: Miralax 17gm pkt NG SCH (08:16)
--- NOTE | 2019-04-08 09:42 | General Progress Note ---
Assessment/Plan Problem List: (1) Anemia ICD Codes: D64.9 - Anemia, unspecified SNOMED: 077448753 (2) Dysphagia ICD Codes: R13.10 - Dysphagia, unspecified SNOMED: 89158206, 235834944 (3) Feeding by G-tube ICD Codes: Z93.1 - Gastrostomy status SNOMED: 208388390, 931681462, 457379479 (4) Anoxic brain injury ICD Codes: G93.1 - Anoxic brain damage, not elsewhere classified SNOMED: 750053640 (5) Seizure disorder ICD Codes: G40.909 - Epilepsy, unspecified, not intractable, without status epilepticus SNOMED: 195874593 (6) Schizoaffective disorder ICD Codes: F25.9 - Schizoaffective disorder, unspecified SNOMED: 86533824 Status: progressing, unchanged Assessment/Plan: no SBO per X ray and exam C. difficile negative GTF as tolerated to 60 cc Stop all stool softeners and laxatives Imodium as needed PPI Electrolyte correction Reglan as needed surgical input appreciated repeat labs in am Subjective ROS Limited/Unobtainable: No Allergies: Coded Allergies: No Known Allergies (Unverified , 08/20/18) Objective Last 24 Hour Vital Signs Date Time Temp Pulse Resp B/P (MAP) Pulse Ox O2 Delivery O2 Flow Rate FiO2 04/08/19 09:00 Nasal Cannula 2.0 04/08/19 08:16 115 112/70 04/08/19 08:04 115 04/08/19 08:00 98.1 101 17 112/70 (84) 100 04/08/19 05:21 98.2 04/08/19 04:00 99.8 114 18 147/74 (98) 100 04/08/19 04:00 Nasal Cannula 2.0 04/08/19 03:32 114 04/08/19 00:02 99.8 04/08/19 00:00 100.0 110 20 105/60 (75) 100 04/08/19 00:00 Nasal Cannula 2.0 04/07/19 23:31 106 04/07/19 21:19 128 120/70 04/07/19 21:00 Nasal Cannula 2.0 04/07/19 20:37 98 Nasal Cannula 2.0 28 04/07/19 20:00 100.0 128 20 120/70 (87) 100 04/07/19 19:13 125 04/07/19 16:00 100.3 118 20 108/71 (83) 98 04/07/19 15:30 119 04/07/19 12:00 100.8 116 17 110/69 (83) 100 04/07/19 11:40 113 Intake and Output 04/07/19 04/08/19 19:00 07:00 Intake Total 720 ml 920 ml Output Total 375 ml 500 ml Balance 345 ml 420 ml Free Water 200 ml Tube Feeding 720 ml 720 ml Output Urine Total 375 ml 500 ml # Bowel Movements 2 Laboratory Tests 04/08/19 03:15: White Blood Count 12.0H, Red Blood Count 3.73L, Hemoglobin 11.1L, Hematocrit 33.0L, Mean Corpuscular Volume 89, Mean Corpuscular Hemoglobin 29.7, Mean Corpuscular Hemoglobin Concent 33.5, Red Cell Distribution Width 12.6, Platelet Count 457H, Mean Platelet Volume 6.8, Neutrophils (%) (Auto) 69.8, Lymphocytes ( %) (Auto) 20.1, Monocytes (%) (Auto) 6.3, Eosinophils (%) (Auto) 3.0, Basophils (%) (Auto) 0.8, Sodium Level 150H, Potassium Level 3.7, Chloride Level 114H, Carbon Dioxide Level 25, Anion Gap 11, Blood Urea Nitrogen 25H, Creatinine 0.7, Estimat Glomerular Filtration Rate > 60, Glucose Level 137H, Calcium Level 9.2 Height (Feet): 5 Height (Inches): 7.00 Weight (Pounds): 150 General Appearance: no apparent distress EENT: normal ENT inspection Neck: supple Cardiovascular: normal rate Respiratory/Chest: decreased breath sounds Abdomen: normal bowel sounds, non tender, soft Extremities: non-tender Ruddy Ospina MD Apr 08, 2019 09:42
--- NOTE | 2019-04-08 11:33 | Infectious Diseases Prog Note ---
Assessment/Plan Assessment/Plan IMPRESSION: 1. Fever of unknown origin 2. Leukocytosis 3. Tachycardia. 4. He has anoxic encephalopathy. 5. MRSA colonization. 6. Hypernatremia and azotemia. 7. Seizure disorder. 8. Hypertension. 9. enteritis 10. Diarrhea, c.difficile test negative RECOMMENDATION: Continue Flagyl Will f/u Blood culture Continue Ibuprofen Subjective ROS Limited/Unobtainable: Yes Constitutional: Reports: fever Gastrointestinal/Abdominal: Reports: diarrhea Allergies: Coded Allergies: No Known Allergies (Unverified , 08/20/18) Objective Vital Signs Last 24 Hour Vital Signs Date Time Temp Pulse Resp B/P (MAP) Pulse Ox O2 Delivery O2 Flow Rate FiO2 04/08/19 09:00 Nasal Cannula 2.0 04/08/19 08:16 115 112/70 04/08/19 08:04 115 04/08/19 08:00 98.1 101 17 112/70 (84) 100 04/08/19 05:21 98.2 04/08/19 04:00 99.8 114 18 147/74 (98) 100 04/08/19 04:00 Nasal Cannula 2.0 04/08/19 03:32 114 04/08/19 00:02 99.8 04/08/19 00:00 100.0 110 20 105/60 (75) 100 04/08/19 00:00 Nasal Cannula 2.0 04/07/19 23:31 106 04/07/19 21:19 128 120/70 04/07/19 21:00 Nasal Cannula 2.0 04/07/19 20:37 98 Nasal Cannula 2.0 28 04/07/19 20:00 100.0 128 20 120/70 (87) 100 04/07/19 19:13 125 04/07/19 16:00 100.3 118 20 108/71 (83) 98 04/07/19 15:30 119 04/07/19 12:00 100.8 116 17 110/69 (83) 100 04/07/19 11:40 113 Height (Feet): 5 Height (Inches): 7.00 Weight (Pounds): 150 General Appearance: no acute distress HEENT: mucous membranes moist Respiratory/Chest: lungs clear Cardiovascular: normal rate Abdomen: soft, non tender, other - GT feeding Extremities: no edema Skin: other - codom catheter Neurologic/Psychiatric: alert, aphasia Laboratory Tests Test 04/08/19 03:15 White Blood Count 12.0 K/UL (4.8-10.8) H Red Blood Count 3.73 M/UL (4.70-6.10) L Hemoglobin 11.1 G/DL (14.2-18.0) L Hematocrit 33.0 % (42.0-52.0) L Mean Corpuscular Volume 89 FL (80-99) Mean Corpuscular Hemoglobin 29.7 PG (27.0-31.0) Mean Corpuscular Hemoglobin Concent 33.5 G/DL (32.0-36.0) Red Cell Distribution Width 12.6 % (11.6-14.8) Platelet Count 457 K/UL (150-450) H Mean Platelet Volume 6.8 FL (6.5-10.1) Neutrophils (%) (Auto) 69.8 % (45.0-75.0) Lymphocytes (%) (Auto) 20.1 % (20.0-45.0) Monocytes (%) (Auto) 6.3 % (1.0-10.0) Eosinophils (%) (Auto) 3.0 % (0.0-3.0) Basophils (%) (Auto) 0.8 % (0.0-2.0) Sodium Level 150 MMOL/L (136-145) H Potassium Level 3.7 MMOL/L (3.5-5.1) Chloride Level 114 MMOL/L (98-107) H Carbon Dioxide Level 25 MMOL/L (21-32) Anion Gap 11 mmol/L (5-15) Blood Urea Nitrogen 25 mg/dL (7-18) H Creatinine 0.7 MG/DL (0.55-1.30) Estimat Glomerular Filtration Rate > 60 mL/min (>60) Glucose Level 137 MG/DL (74-106) H Calcium Level 9.2 MG/DL (8.5-10.1) Current Medications Medications (Trade) Dose Ordered Sig/Yohannes Route PRN Reason Start Time Stop Time Status Last Admin Dose Admin Acetaminophen (Tylenol) 650 mg Q6H PRN GT Mild Pain/Temp > 100.5 04/05/19 03:00 04/20/19 02:59 04/07/19 23:32 Bisacodyl (Dulcolax) 10 mg DAILY PRN RECTAL Constipation 04/05/19 09:00 04/22/19 18:59 Dextrose 1,000 ml @ 100 mls/hr Q10H IV 04/08/19 09:30 05/08/19 09:29 04/08/19 10:00 Docusate Sodium (Colace) 100 mg TID GT 04/05/19 09:00 04/23/19 08:59 04/08/19 08:16 Ibuprofen (Children's Advil) 200 mg Q6H PRN GT fever 04/07/19 10:45 05/07/19 10:44 Lansoprazole (Prevacid) 30 mg DAILY GT 04/05/19 09:00 04/26/19 15:14 04/08/19 08:16 Levetiracetam (Keppra) 1,000 mg Q12HR ORAL 04/05/19 09:00 04/20/19 08:59 04/08/19 08:16 Loperamide HCl (Imodium) 2 mg Q6H PRN GT Diarrhea 04/04/19 21:30 05/04/19 21:29 Metoprolol Tartrate (Lopressor) 100 mg EVERY 12 HOURS GT 04/06/19 21:00 04/26/19 20:59 04/08/19 08:16 Metronidazole (Flagyl) 500 mg Q8HR GT 04/06/19 14:00 04/13/19 13:59 04/08/19 05:18 Polyethylene Glycol (Miralax) 17 gm DAILY NG 04/05/19 09:00 04/20/19 08:59 04/08/19 08:16 Sennosides (Senokot) 17.2 mg BEDTIME GT 04/05/19 21:00 04/20/19 20:59 04/07/19 21:18 Yash Shay MD Apr 08, 2019 11:33
--- NOTE | 2019-04-08 12:19 | Surgery Progress Note ---
Surgery Progress Note Subjective Additional Comments fever curve improving. wbc improving exam stable. Objective Last 24 Hour Vital Signs Date Time Temp Pulse Resp B/P (MAP) Pulse Ox O2 Delivery O2 Flow Rate FiO2 04/08/19 12:00 Nasal Cannula 2.0 04/08/19 12:00 99.5 105 19 112/61 (78) 100 04/08/19 09:00 Nasal Cannula 2.0 04/08/19 08:16 115 112/70 04/08/19 08:04 115 04/08/19 08:00 98.1 101 17 112/70 (84) 100 04/08/19 05:21 98.2 04/08/19 04:00 99.8 114 18 147/74 (98) 100 04/08/19 04:00 Nasal Cannula 2.0 04/08/19 03:32 114 04/08/19 00:02 99.8 04/08/19 00:00 100.0 110 20 105/60 (75) 100 04/08/19 00:00 Nasal Cannula 2.0 04/07/19 23:31 106 04/07/19 21:19 128 120/70 04/07/19 21:00 Nasal Cannula 2.0 04/07/19 20:37 98 Nasal Cannula 2.0 28 04/07/19 20:00 100.0 128 20 120/70 (87) 100 04/07/19 19:13 125 04/07/19 16:00 100.3 118 20 108/71 (83) 98 04/07/19 15:30 119 I&O Intake and Output 04/07/19 04/08/19 19:00 07:00 Intake Total 720 ml 920 ml Output Total 375 ml 500 ml Balance 345 ml 420 ml Free Water 200 ml Tube Feeding 720 ml 720 ml Output Urine Total 375 ml 500 ml # Bowel Movements 2 Dressing: other Wound: other Drains: other Cardiovascular: RSR Respiratory: clear Abdomen: soft, present bowel sounds, non-distended Extremities: no tenderness, no cyanosis Laboratory Tests Test 04/08/19 03:15 White Blood Count 12.0 K/UL (4.8-10.8) H Red Blood Count 3.73 M/UL (4.70-6.10) L Hemoglobin 11.1 G/DL (14.2-18.0) L Hematocrit 33.0 % (42.0-52.0) L Mean Corpuscular Volume 89 FL (80-99) Mean Corpuscular Hemoglobin 29.7 PG (27.0-31.0) Mean Corpuscular Hemoglobin Concent 33.5 G/DL (32.0-36.0) Red Cell Distribution Width 12.6 % (11.6-14.8) Platelet Count 457 K/UL (150-450) H Mean Platelet Volume 6.8 FL (6.5-10.1) Neutrophils (%) (Auto) 69.8 % (45.0-75.0) Lymphocytes (%) (Auto) 20.1 % (20.0-45.0) Monocytes (%) (Auto) 6.3 % (1.0-10.0) Eosinophils (%) (Auto) 3.0 % (0.0-3.0) Basophils (%) (Auto) 0.8 % (0.0-2.0) Sodium Level 150 MMOL/L (136-145) H Potassium Level 3.7 MMOL/L (3.5-5.1) Chloride Level 114 MMOL/L (98-107) H Carbon Dioxide Level 25 MMOL/L (21-32) Anion Gap 11 mmol/L (5-15) Blood Urea Nitrogen 25 mg/dL (7-18) H Creatinine 0.7 MG/DL (0.55-1.30) Estimat Glomerular Filtration Rate > 60 mL/min (>60) Glucose Level 137 MG/DL (74-106) H Calcium Level 9.2 MG/DL (8.5-10.1) Plan Problems: (1) Acute prerenal azotemia (2) Weakness generalized (3) Schizoaffective disorder (4) Acute hypernatremia (5) Dehydration (6) Seizure disorder (7) Sepsis Assessment & Plan: febrile, tachycardia, leukocytosis etiology unknown exam without significant pathology cultures negative thus far cxr okay ct noted No evidence of bowel obstruction. Liquefied stool in the colon and mild distention of the rectum. Correlate for diarrhea and gastroenteritis. 1 cm left adrenal mass probably adenoma. MRI evaluation may be of benefit. Gastrostomy. -trend labs venous duplex studies negative overall labs and fever curve improving on abx will follow with recs thank you (8) Anoxic brain injury (9) Encephalopathy due to metabolic factor or toxin (10) Acute metabolic encephalopathy (11) Acute renal failure (12) Hypercalcemia (13) Diarrhea (14) SBO (small bowel obstruction) Assessment & Plan: CT with Ingested contrast is traversed only a short distance into the small bowel. There is diffuse mild dilatation of the proximal to mid small bowel, collapsed distal small bowel loops. Uncertain point of transition although probably in the lower mid abdomen/upper pelvis. There is only minimal forward transit of contrast There is mild distention of the distal sigmoid and rectum by what appears to be fluid contents. No downstream obstructive lesion demonstrated. There is colonic diverticulosis. The appendix is normal. No free or loculated intraperitoneal gas or fluid is evident. There is edema of the presacral fat. There are surgical clips in the anterior gastric wall. There is a gastrostomy in appropriate position in the gastric body. The distal esophagus and duodenum are unremarkable. Lack of IV contrast limits assessment of the solid organs. Liver, gallbladder, bile ducts, pancreas, spleen, adrenals are unremarkable. 1 cm exophytic cyst comes off of the pole region of the left kidney, as well as a smaller exophytic subcentimeter low-attenuation lesion which is too small to characterize. There is also a very subtle 2 cm fluid attenuation cyst coming off of the lower pole. The right kidney is unremarkable. No pelvic mass or adenopathy. follow up KUB without pathology now with loose stools c diff negative appreciate GI input okay for tube feeds as above thank you (15) Anemia (16) Dysphagia (17) Feeding by G-tube Sean Thornton Apr 08, 2019 12:19
--- NOTE | 2019-04-08 13:08 | Cardiac Electrophysiology PN ---
Assessment/Plan Assessment/Plan 1. Sinus tachycardia due to fever and dehydration. Better on Metoprolol 100 bid. EF 60%. 2. Hypertension. On Metoprolol 100 bid 3. Sepsis, on IV antibiotic 4. Dysphagia, status post PEG 5. Anoxic brain injury and seizures. MRI brain negative for any acute findings On Keppra 6. Acute renal failure and dehydration, resolved Cr 0.7 7. Possible SBO by CT abdomen. FU Dr Ospina. DW RN Subjective Subjective Nonverbal in sinus tach around 110-120. RN at bedside. No new events Objective Last 24 Hour Vital Signs Date Time Temp Pulse Resp B/P (MAP) Pulse Ox O2 Delivery O2 Flow Rate FiO2 04/08/19 12:00 101 04/08/19 12:00 Nasal Cannula 2.0 04/08/19 12:00 99.5 105 19 112/61 (78) 100 04/08/19 09:00 Nasal Cannula 2.0 04/08/19 08:16 115 112/70 04/08/19 08:04 115 04/08/19 08:00 98.1 101 17 112/70 (84) 100 04/08/19 05:21 98.2 04/08/19 04:00 99.8 114 18 147/74 (98) 100 04/08/19 04:00 Nasal Cannula 2.0 04/08/19 03:32 114 04/08/19 00:02 99.8 04/08/19 00:00 100.0 110 20 105/60 (75) 100 04/08/19 00:00 Nasal Cannula 2.0 04/07/19 23:31 106 04/07/19 21:19 128 120/70 04/07/19 21:00 Nasal Cannula 2.0 04/07/19 20:37 98 Nasal Cannula 2.0 28 04/07/19 20:00 100.0 128 20 120/70 (87) 100 04/07/19 19:13 125 04/07/19 16:00 100.3 118 20 108/71 (83) 98 04/07/19 15:30 119 Intake and Output 04/07/19 04/08/19 19:00 07:00 Intake Total 720 ml 920 ml Output Total 375 ml 500 ml Balance 345 ml 420 ml Free Water 200 ml Tube Feeding 720 ml 720 ml Output Urine Total 375 ml 500 ml # Bowel Movements 2 Laboratory Tests Test 04/08/19 03:15 White Blood Count 12.0 K/UL (4.8-10.8) H Red Blood Count 3.73 M/UL (4.70-6.10) L Hemoglobin 11.1 G/DL (14.2-18.0) L Hematocrit 33.0 % (42.0-52.0) L Mean Corpuscular Volume 89 FL (80-99) Mean Corpuscular Hemoglobin 29.7 PG (27.0-31.0) Mean Corpuscular Hemoglobin Concent 33.5 G/DL (32.0-36.0) Red Cell Distribution Width 12.6 % (11.6-14.8) Platelet Count 457 K/UL (150-450) H Mean Platelet Volume 6.8 FL (6.5-10.1) Neutrophils (%) (Auto) 69.8 % (45.0-75.0) Lymphocytes (%) (Auto) 20.1 % (20.0-45.0) Monocytes (%) (Auto) 6.3 % (1.0-10.0) Eosinophils (%) (Auto) 3.0 % (0.0-3.0) Basophils (%) (Auto) 0.8 % (0.0-2.0) Sodium Level 150 MMOL/L (136-145) H Potassium Level 3.7 MMOL/L (3.5-5.1) Chloride Level 114 MMOL/L (98-107) H Carbon Dioxide Level 25 MMOL/L (21-32) Anion Gap 11 mmol/L (5-15) Blood Urea Nitrogen 25 mg/dL (7-18) H Creatinine 0.7 MG/DL (0.55-1.30) Estimat Glomerular Filtration Rate > 60 mL/min (>60) Glucose Level 137 MG/DL (74-106) H Calcium Level 9.2 MG/DL (8.5-10.1) Objective HEAD AND NECK: No JVD. Old tracheostomy site closed. LUNGS: Coarse rhonchi. CARDIOVASCULAR: Tachy S1 and S2 with no gallop. ABDOMEN: Soft, status post G-tube. EXTREMITIES: No pitting edema. Jim Manjarrez MD Apr 08, 2019 13:08
--- NOTE | 2019-04-08 15:13 | Nephrology Progress Note ---
Assessment/Plan Problem List: (1) Acute renal failure (2) Acute prerenal azotemia Assessment: dehydration (3) Dehydration (4) Seizure disorder (5) Anoxic brain injury (6) Sepsis (7) Hypercalcemia Assessment Renal failure: Dehydration Hypernatremia, Free water deficit Sepsis Acute metabolic encephalopathy PEG Sz disorder HTN Plan D5W for high Na Phos , K , Lytes adjustments lowering Cr High Vanco level , now lowering One dose Aredia for high Ca- Calcium now in range- IV adjusted. K and Phos and Mag as needed monitor lytes GT feeding NS IV Fluids Coreg GT change to lopressor monitor electrolytes per orders Subjective ROS Limited/Unobtainable: Yes Objective Objective Last 24 Hour Vital Signs Date Time Temp Pulse Resp B/P (MAP) Pulse Ox O2 Delivery O2 Flow Rate FiO2 04/08/19 12:00 101 04/08/19 12:00 Nasal Cannula 2.0 04/08/19 12:00 99.5 105 19 112/61 (78) 100 04/08/19 09:00 Nasal Cannula 2.0 04/08/19 08:16 115 112/70 04/08/19 08:04 115 04/08/19 08:00 98.1 101 17 112/70 (84) 100 04/08/19 05:21 98.2 04/08/19 04:00 99.8 114 18 147/74 (98) 100 04/08/19 04:00 Nasal Cannula 2.0 04/08/19 03:32 114 04/08/19 00:02 99.8 04/08/19 00:00 100.0 110 20 105/60 (75) 100 04/08/19 00:00 Nasal Cannula 2.0 04/07/19 23:31 106 04/07/19 21:19 128 120/70 04/07/19 21:00 Nasal Cannula 2.0 04/07/19 20:37 98 Nasal Cannula 2.0 28 04/07/19 20:00 100.0 128 20 120/70 (87) 100 04/07/19 19:13 125 04/07/19 16:00 100.3 118 20 108/71 (83) 98 04/07/19 15:30 119 Intake and Output 04/07/19 04/08/19 19:00 07:00 Intake Total 720 ml 920 ml Output Total 375 ml 500 ml Balance 345 ml 420 ml Free Water 200 ml Tube Feeding 720 ml 720 ml Output Urine Total 375 ml 500 ml # Bowel Movements 2 Laboratory Tests 04/08/19 03:15: White Blood Count 12.0H, Red Blood Count 3.73L, Hemoglobin 11.1L, Hematocrit 33.0L, Mean Corpuscular Volume 89, Mean Corpuscular Hemoglobin 29.7, Mean Corpuscular Hemoglobin Concent 33.5, Red Cell Distribution Width 12.6, Platelet Count 457H, Mean Platelet Volume 6.8, Neutrophils (%) (Auto) 69.8, Lymphocytes ( %) (Auto) 20.1, Monocytes (%) (Auto) 6.3, Eosinophils (%) (Auto) 3.0, Basophils (%) (Auto) 0.8, Sodium Level 150H, Potassium Level 3.7, Chloride Level 114H, Carbon Dioxide Level 25, Anion Gap 11, Blood Urea Nitrogen 25H, Creatinine 0.7, Estimat Glomerular Filtration Rate > 60, Glucose Level 137H, Calcium Level 9.2 Height (Feet): 5 Height (Inches): 7.00 Weight (Pounds): 150 General Appearance: no apparent distress Cardiovascular: tachycardia Respiratory/Chest: decreased breath sounds Abdomen: distended Objective no change Janes Barros MD Apr 08, 2019 15:13
--- NOTE | 2019-04-08 19:19 | Neurology Progress Note ---
Interim History Interim History ROS Limited/Unobtainable: Yes Complaints: AMS Events: This visit was performed on April 08, [address] Jin Review of Systems All Systems: reviewed and negative except above Objective Physical Exam Last Vital Signs Date Time Temp Pulse Resp B/P (MAP) Pulse Ox O2 Delivery O2 Flow Rate FiO2 04/08/19 16:00 103 04/08/19 16:00 98.2 19 119/74 (89) 100 04/08/19 16:00 Nasal Cannula 2.0 04/07/19 20:37 28 Laboratory Tests Test 04/08/19 03:15 White Blood Count 12.0 K/UL (4.8-10.8) H Red Blood Count 3.73 M/UL (4.70-6.10) L Hemoglobin 11.1 G/DL (14.2-18.0) L Hematocrit 33.0 % (42.0-52.0) L Mean Corpuscular Volume 89 FL (80-99) Mean Corpuscular Hemoglobin 29.7 PG (27.0-31.0) Mean Corpuscular Hemoglobin Concent 33.5 G/DL (32.0-36.0) Red Cell Distribution Width 12.6 % (11.6-14.8) Platelet Count 457 K/UL (150-450) H Mean Platelet Volume 6.8 FL (6.5-10.1) Neutrophils (%) (Auto) 69.8 % (45.0-75.0) Lymphocytes (%) (Auto) 20.1 % (20.0-45.0) Monocytes (%) (Auto) 6.3 % (1.0-10.0) Eosinophils (%) (Auto) 3.0 % (0.0-3.0) Basophils (%) (Auto) 0.8 % (0.0-2.0) Sodium Level 150 MMOL/L (136-145) H Potassium Level 3.7 MMOL/L (3.5-5.1) Chloride Level 114 MMOL/L (98-107) H Carbon Dioxide Level 25 MMOL/L (21-32) Anion Gap 11 mmol/L (5-15) Blood Urea Nitrogen 25 mg/dL (7-18) H Creatinine 0.7 MG/DL (0.55-1.30) Estimat Glomerular Filtration Rate > 60 mL/min (>60) Glucose Level 137 MG/DL (74-106) H Calcium Level 9.2 MG/DL (8.5-10.1) General: well developed, well nourished Head: normocophalic Neck: other EENT: benign, other Neurologic Exam Mental Status: other Speech: other Language: other Cranial Nerve II: fundus normal, visual roberts, no papilledema, other Cranial Nerves III, IV, : PERRLA, EOMI, other Cranial Nerve V: other Cranial Nerve VII: other Cranial Nerve VIII: other Cranial Nerve IX: other Cranial Nerve X: other Cranial Nerve XI: other Cranial Nerve XII: other Motor System: other Sensory: other Coordination: other - Patient has tracheostomy scar at throat, is tracking intermittently with his eyes, he doesn't follow commands, has rigid tone and spasticity in all extremities and triple flexes in LEs bilaterally with mild decerebrate posturing in UEs on noxious stim. Deep Tendon Reflexes: 1+ bicep (L), 1+ bicep (R), 1+ tricep (L), 1+ tricep (R) , 1+ brachioradialis (L), 1+ brachioradialis (R), 1+ knee (L), 1+ knee (R), 1+ ankle (L), 1+ ankle (R) Reflexes: flexor plantar (L), flexor plantar (R); extensor plantar (L), extensor plantar (R) Objective Patient has tracheostomy scar at throat, is tracking intermittently with his eyes, he doesn't follow commands, has rigid tone and spasticity in all extremities and triple flexes in LEs bilaterally with mild decerebrate posturing in UEs on noxious stim. He has nystagmus on gaze at rest bilaterally - He is much more alert still with fever now. Impression/Recommendations Problems: (1) Seizure disorder (2) Anoxic brain injury Assessment & Plan: Central fevers probable but no explanation for leukocytosis. No indication or likelihood of meningitis- no need for LP at this time. MRI was negative for any acute events. (3) Sepsis (4) Acute hypernatremia (5) Dehydration (6) Encephalopathy due to metabolic factor or toxin (7) Acute metabolic encephalopathy (8) Weakness generalized (9) Schizoaffective disorder (10) Acute prerenal azotemia (11) Acute renal failure (12) Hypercalcemia (13) Diarrhea (14) SBO (small bowel obstruction) (15) Anemia (16) Dysphagia (17) Feeding by G-tube Status: progressing, not improved, unchanged Diagnostic Impression Central Fevers secondary to severe cerebral dysfunction are a possibility but do not explain his leukocytosis. No apparent focal or generalized seizure activity at this time or seen on EEG. Recommendations Q4 Hour obs Na 135-145 = water flushes to PEG feeding schedule Telemetry monitoring Maintain normothermia with Ibuprofen Abx as per ID- currently on flagyl Please consider NS instead of D5 IV fluid Maintain normoglycemia with ISS SBP<140 Continue Keppra 1000 mg BID - Ativan 1mg PRN for seizure Replete/ Replace lytes Cultures Negative Chey Long N.P. Apr 08, 2019 19:19
[2019-04-08] MEDS: Sennosides 8.6mg tab GT SCH (21:40)
--- NOTE | 2019-04-08 21:52 | General Progress Note ---
Assessment/Plan Problem List: (1) Schizoaffective disorder ICD Codes: F25.9 - Schizoaffective disorder, unspecified SNOMED: 77178289 (2) Seizure disorder ICD Codes: G40.909 - Epilepsy, unspecified, not intractable, without status epilepticus SNOMED: 197494933 (3) Dehydration ICD Codes: E86.0 - Dehydration SNOMED: 82809477, 438100858 (4) Sepsis ICD Codes: A41.9 - Sepsis, unspecified organism SNOMED: 07695281, 473004600 Qualifiers: Qualified Codes: A41.9 - Sepsis, unspecified organism (5) Acute metabolic encephalopathy ICD Codes: G93.41 - Metabolic encephalopathy SNOMED: 91554288, 837364894 Status: progressing, not improved, unchanged Assessment/Plan: sepsis encepahlopathy intermittent fever fever of unknown etiology confused lethargic Subjective ROS Limited/Unobtainable: Yes Allergies: Coded Allergies: No Known Allergies (Unverified , 08/20/18) Objective Last 24 Hour Vital Signs Date Time Temp Pulse Resp B/P (MAP) Pulse Ox O2 Delivery O2 Flow Rate FiO2 04/08/19 21:39 104 112/75 04/08/19 20:00 106 04/08/19 16:00 103 04/08/19 16:00 98.2 103 19 119/74 (89) 100 04/08/19 16:00 Nasal Cannula 2.0 04/08/19 12:00 101 04/08/19 12:00 Nasal Cannula 2.0 04/08/19 12:00 99.5 105 19 112/61 (78) 100 04/08/19 09:00 Nasal Cannula 2.0 04/08/19 08:16 115 112/70 04/08/19 08:04 115 04/08/19 08:00 98.1 101 17 112/70 (84) 100 04/08/19 05:21 98.2 04/08/19 04:00 99.8 114 18 147/74 (98) 100 04/08/19 04:00 Nasal Cannula 2.0 04/08/19 03:32 114 04/08/19 00:02 99.8 04/08/19 00:00 100.0 110 20 105/60 (75) 100 04/08/19 00:00 Nasal Cannula 2.0 04/07/19 23:31 106 Intake and Output 04/07/19 04/08/19 18:59 06:59 Intake Total 770 ml 920 ml Output Total 375 ml 500 ml Balance 395 ml 420 ml Free Water 50 ml 200 ml Tube Feeding 720 ml 720 ml Output Urine Total 375 ml 500 ml # Bowel Movements 2 Laboratory Tests 04/08/19 03:15: White Blood Count 12.0H, Red Blood Count 3.73L, Hemoglobin 11.1L, Hematocrit 33.0L, Mean Corpuscular Volume 89, Mean Corpuscular Hemoglobin 29.7, Mean Corpuscular Hemoglobin Concent 33.5, Red Cell Distribution Width 12.6, Platelet Count 457H, Mean Platelet Volume 6.8, Neutrophils (%) (Auto) 69.8, Lymphocytes ( %) (Auto) 20.1, Monocytes (%) (Auto) 6.3, Eosinophils (%) (Auto) 3.0, Basophils (%) (Auto) 0.8, Sodium Level 150H, Potassium Level 3.7, Chloride Level 114H, Carbon Dioxide Level 25, Anion Gap 11, Blood Urea Nitrogen 25H, Creatinine 0.7, Estimat Glomerular Filtration Rate > 60, Glucose Level 137H, Calcium Level 9.2 Height (Feet): 5 Height (Inches): 7.00 Weight (Pounds): 150 General Appearance: confused Neck: supple Cardiovascular: normal rate Respiratory/Chest: lungs clear Abdomen: soft Lenin Wyatt MD Apr 08, 2019 21:52
[2019-04-09 04:00] VITALS: BP 108/75
[2019-04-09] MEDS: metroNIDAZOLE 500mg tab GT SCH ×3 (05:50→21:55)
[2019-04-09 06:09] LABS: BASOPHILS % (AUTO) 0.8 % (0.0-2.0); EOSINOPHILS % (AUTO) 5.7 % (0.0-3.0); HEMATOCRIT 29.9 % (42.0-52.0); HEMOGLOBIN 10.1 G/DL (14.2-18.0); LYMPHOCYTES % (AUTO) 21.1 % (20.0-45.0); MEAN CORPUSCULAR VOLUME 87 FL (80-99); MONOCYTES % (AUTO) 4.6 % (1.0-10.0); NEUTROPHILS % (AUTO) 67.8 % (45.0-75.0); PLATELET COUNT 435 K/UL (150-450); RED BLOOD COUNT 3.42 M/UL (4.70-6.10); RED CELL DISTRIBUTION WIDTH 12.1 % (11.6-14.8); WHITE BLOOD COUNT 11.1 K/UL (4.8-10.8)
[2019-04-09 07:16] LABS: ALANINE AMINOTRANSFERASE 52 U/L (12-78); ALBUMIN 2.2 G/DL (3.4-5.0); ALBUMIN/GLOBULIN RATIO 0.5 (1.0-2.7); ALKALINE PHOSPHATASE 60 U/L (46-116); ANION GAP 11 mmol/L (5-15); ASPARTATE AMINO TRANSFERASE 22 U/L (15-37); BILIRUBIN,TOTAL 0.3 MG/DL (0.2-1.0); BLOOD UREA NITROGEN 21 mg/dL (7-18); CALCIUM 9.1 MG/DL (8.5-10.1); CARBON DIOXIDE 26 MMOL/L (21-32); CHLORIDE 106 MMOL/L (98-107); CREATININE 0.5 MG/DL (0.55-1.30); PHOSPHORUS 2.6 MG/DL (2.5-4.9); POTASSIUM 3.3 MMOL/L (3.5-5.1); SODIUM 143 MMOL/L (136-145)
[2019-04-09 08:00] VITALS: BP 125/76
[2019-04-09] MEDS: levETIRAcetam 500mg/5ml Liquid ORAL SCH ×2 (08:41→21:57)
[2019-04-09] MEDS: Docusate 100mg/10ml Liq GT SCH ×3 (08:41→18:00)
[2019-04-09] MEDS: Miralax 17gm pkt NG SCH (08:42)
--- NOTE | 2019-04-09 09:37 | Diagnostic Imaging Report ---
APPROVED REPORT CPT Code: 59786 Present Symptoms Comments: BILATERAL LEGS PAIN. BILATERAL: Imaging reveals a patent deep venous system bilaterally. There is no evidence of thrombus within the femoral, popliteal or tibial segments. The greater saphenous veins are also within normal limits. Doppler indicates normal spontaneous flow within these segments.
--- NOTE | 2019-04-09 11:27 | Nephrology Progress Note ---
Assessment/Plan Problem List: (1) Acute renal failure (2) Acute prerenal azotemia Assessment: dehydration (3) Dehydration (4) Seizure disorder (5) Anoxic brain injury (6) Sepsis (7) Hypercalcemia Assessment Renal failure: Dehydration Hypernatremia, Free water deficit Sepsis Acute metabolic encephalopathy PEG Sz disorder HTN Plan D5W for high Na Phos , K , Lytes : adjustments lowering Cr High Vanco level , now lowering One dose Aredia for high Ca- Calcium now in range- IV adjusted. K and Phos and Mag as needed monitor lytes GT feeding NS IV Fluids Coreg GT change to lopressor monitor electrolytes per orders Subjective ROS Limited/Unobtainable: Yes Objective Objective Last 24 Hour Vital Signs Date Time Temp Pulse Resp B/P (MAP) Pulse Ox O2 Delivery O2 Flow Rate FiO2 04/09/19 09:00 Nasal Cannula 2.0 04/09/19 08:41 101 125/76 04/09/19 08:03 105 04/09/19 08:00 98.2 107 18 125/76 (92) 100 04/09/19 04:00 107 04/09/19 04:00 97.9 106 20 108/75 (86) 100 04/08/19 23:57 98.0 95 20 114/78 (90) 100 04/08/19 21:39 104 112/75 04/08/19 21:00 Nasal Cannula 2.0 04/08/19 20:00 97.7 103 20 112/74 (87) 100 04/08/19 20:00 106 04/08/19 16:00 103 04/08/19 16:00 98.2 103 19 119/74 (89) 100 04/08/19 16:00 Nasal Cannula 2.0 04/08/19 12:00 101 04/08/19 12:00 Nasal Cannula 2.0 04/08/19 12:00 99.5 105 19 112/61 (78) 100 Intake and Output 04/08/19 04/09/19 19:00 07:00 Intake Total 1750 ml 125 ml Output Total 550 ml 700 ml Balance 1200 ml -575 ml Free Water 130 ml IV Total 900 ml 125 ml Tube Feeding 720 ml Output Urine Total 550 ml 700 ml # Bowel Movements 4 Laboratory Tests 04/09/19 05:00: White Blood Count 11.1H, Red Blood Count 3.42L, Hemoglobin 10.1L, Hematocrit 29.9L, Mean Corpuscular Volume 87, Mean Corpuscular Hemoglobin 29.4, Mean Corpuscular Hemoglobin Concent 33.6, Red Cell Distribution Width 12.1, Platelet Count 435, Mean Platelet Volume 6.8, Neutrophils (%) (Auto) 67.8, Lymphocytes (% ) (Auto) 21.1, Monocytes (%) (Auto) 4.6, Eosinophils (%) (Auto) 5.7H, Basophils (%) (Auto) 0.8, Sodium Level 143, Potassium Level 3.3L, Chloride Level 106, Carbon Dioxide Level 26, Anion Gap 11, Blood Urea Nitrogen 21H, Creatinine 0.5L , Estimat Glomerular Filtration Rate > 60, Glucose Level 139H, Uric Acid 3.7, Calcium Level 9.1, Phosphorus Level 2.6, Magnesium Level 1.7L, Total Bilirubin 0.3, Aspartate Amino Transf (AST/SGOT) 22, Alanine Aminotransferase (ALT/SGPT) 52, Alkaline Phosphatase 60, C-Reactive Protein, Quantitative 3.7H, Pro-B-Type Natriuretic Peptide 31, Total Protein 6.4, Albumin 2.2L, Globulin 4.2, Albumin/ Globulin Ratio 0.5L Height (Feet): 5 Height (Inches): 7.00 Weight (Pounds): 150 General Appearance: no apparent distress Cardiovascular: bradycardia Respiratory/Chest: decreased breath sounds Abdomen: distended Objective no change Janes Barros MD Apr 09, 2019 11:27
[2019-04-09 12:00] VITALS: BP 102/75
--- NOTE | 2019-04-09 13:15 | Surgery Progress Note ---
Surgery Progress Note Subjective Additional Comments Patient seen and examined at bedside. Leukocytosis trending down to 11,000 today. Imaging noted. Exam stable. Objective Last 24 Hour Vital Signs Date Time Temp Pulse Resp B/P (MAP) Pulse Ox O2 Delivery O2 Flow Rate FiO2 04/09/19 12:00 Nasal Cannula 2.0 04/09/19 12:00 89 04/09/19 12:00 98.2 93 20 102/75 (84) 100 04/09/19 09:00 Nasal Cannula 2.0 04/09/19 08:41 101 125/76 04/09/19 08:03 105 04/09/19 08:00 98.2 107 18 125/76 (92) 100 04/09/19 04:00 107 04/09/19 04:00 97.9 106 20 108/75 (86) 100 04/08/19 23:57 98.0 95 20 114/78 (90) 100 04/08/19 21:39 104 112/75 04/08/19 21:00 Nasal Cannula 2.0 04/08/19 20:00 97.7 103 20 112/74 (87) 100 04/08/19 20:00 106 04/08/19 16:00 103 04/08/19 16:00 98.2 103 19 119/74 (89) 100 04/08/19 16:00 Nasal Cannula 2.0 I&O Intake and Output 04/08/19 04/09/19 19:00 07:00 Intake Total 1750 ml 125 ml Output Total 550 ml 700 ml Balance 1200 ml -575 ml Free Water 130 ml IV Total 900 ml 125 ml Tube Feeding 720 ml Output Urine Total 550 ml 700 ml # Bowel Movements 4 Dressing: saturated Wound: clean Cardiovascular: RSR Respiratory: clear, decreased breath sounds Abdomen: soft, present bowel sounds, non-distended Extremities: no tenderness, no cyanosis Laboratory Tests Test 04/09/19 05:00 White Blood Count 11.1 K/UL (4.8-10.8) H Red Blood Count 3.42 M/UL (4.70-6.10) L Hemoglobin 10.1 G/DL (14.2-18.0) L Hematocrit 29.9 % (42.0-52.0) L Mean Corpuscular Volume 87 FL (80-99) Mean Corpuscular Hemoglobin 29.4 PG (27.0-31.0) Mean Corpuscular Hemoglobin Concent 33.6 G/DL (32.0-36.0) Red Cell Distribution Width 12.1 % (11.6-14.8) Platelet Count 435 K/UL (150-450) Mean Platelet Volume 6.8 FL (6.5-10.1) Neutrophils (%) (Auto) 67.8 % (45.0-75.0) Lymphocytes (%) (Auto) 21.1 % (20.0-45.0) Monocytes (%) (Auto) 4.6 % (1.0-10.0) Eosinophils (%) (Auto) 5.7 % (0.0-3.0) H Basophils (%) (Auto) 0.8 % (0.0-2.0) Sodium Level 143 MMOL/L (136-145) Potassium Level 3.3 MMOL/L (3.5-5.1) L Chloride Level 106 MMOL/L (98-107) Carbon Dioxide Level 26 MMOL/L (21-32) Anion Gap 11 mmol/L (5-15) Blood Urea Nitrogen 21 mg/dL (7-18) H Creatinine 0.5 MG/DL (0.55-1.30) L Estimat Glomerular Filtration Rate > 60 mL/min (>60) Glucose Level 139 MG/DL (74-106) H Uric Acid 3.7 MG/DL (2.6-7.2) Calcium Level 9.1 MG/DL (8.5-10.1) Phosphorus Level 2.6 MG/DL (2.5-4.9) Magnesium Level 1.7 MG/DL (1.8-2.4) L Total Bilirubin 0.3 MG/DL (0.2-1.0) Aspartate Amino Transf (AST/SGOT) 22 U/L (15-37) Alanine Aminotransferase (ALT/SGPT) 52 U/L (12-78) Alkaline Phosphatase 60 U/L (46-116) C-Reactive Protein, Quantitative 3.7 mg/dL (0.00-0.90) H Pro-B-Type Natriuretic Peptide 31 pg/mL (0-125) Total Protein 6.4 G/DL (6.4-8.2) Albumin 2.2 G/DL (3.4-5.0) L Globulin 4.2 g/dL Albumin/Globulin Ratio 0.5 (1.0-2.7) L Plan Problems: (1) Acute prerenal azotemia (2) Weakness generalized (3) Schizoaffective disorder (4) Acute hypernatremia (5) Dehydration (6) Seizure disorder (7) Sepsis Assessment & Plan: febrile, tachycardia, leukocytosis etiology unknown exam without significant pathology cultures negative thus far cxr okay ct noted No evidence of bowel obstruction. Liquefied stool in the colon and mild distention of the rectum. Correlate for diarrhea and gastroenteritis. 1 cm left adrenal mass probably adenoma. MRI evaluation may be of benefit. Gastrostomy. -trend labs venous duplex studies negative overall labs and fever curve improving on abx will follow with recs thank you (8) Anoxic brain injury (9) Encephalopathy due to metabolic factor or toxin (10) Acute metabolic encephalopathy (11) Acute renal failure (12) Hypercalcemia (13) Diarrhea (14) SBO (small bowel obstruction) Assessment & Plan: CT with Ingested contrast is traversed only a short distance into the small bowel. There is diffuse mild dilatation of the proximal to mid small bowel, collapsed distal small bowel loops. Uncertain point of transition although probably in the lower mid abdomen/upper pelvis. There is only minimal forward transit of contrast There is mild distention of the distal sigmoid and rectum by what appears to be fluid contents. No downstream obstructive lesion demonstrated. There is colonic diverticulosis. The appendix is normal. No free or loculated intraperitoneal gas or fluid is evident. There is edema of the presacral fat. There are surgical clips in the anterior gastric wall. There is a gastrostomy in appropriate position in the gastric body. The distal esophagus and duodenum are unremarkable. Lack of IV contrast limits assessment of the solid organs. Liver, gallbladder, bile ducts, pancreas, spleen, adrenals are unremarkable. 1 cm exophytic cyst comes off of the pole region of the left kidney, as well as a smaller exophytic subcentimeter low-attenuation lesion which is too small to characterize. There is also a very subtle 2 cm fluid attenuation cyst coming off of the lower pole. The right kidney is unremarkable. No pelvic mass or adenopathy. follow up KUB without pathology now with loose stools c diff negative appreciate GI input okay for tube feeds as above thank you (15) Anemia (16) Dysphagia (17) Feeding by G-tube Sean Thornton Apr 09, 2019 13:15
[2019-04-09 16:00] VITALS: BP 113/74
--- NOTE | 2019-04-09 19:03 | Cardiac Electrophysiology PN ---
Assessment/Plan Assessment/Plan 1. Sinus tachycardia due to fever and dehydration. On Metoprolol 100 bid. EF 60%. 2. Hypertension. On Metoprolol 100 bid 3. Sepsis, on IV antibiotic 4. Dysphagia, status post PEG 5. Anoxic brain injury and seizures. MRI brain negative for any acute findings On Keppra 6. Acute renal failure and dehydration, resolved Cr 0.7 7. Possible SBO by CT abdomen. Resolved. FU Dr Ospina. DW RN Subjective Subjective Nonverbal in sinus with no new events. Got K and Mg Objective Last 24 Hour Vital Signs Date Time Temp Pulse Resp B/P (MAP) Pulse Ox O2 Delivery O2 Flow Rate FiO2 04/09/19 16:00 102 04/09/19 16:00 98.1 77 20 113/74 (87) 100 04/09/19 12:00 Nasal Cannula 2.0 04/09/19 12:00 89 04/09/19 12:00 98.2 93 20 102/75 (84) 100 04/09/19 09:00 Nasal Cannula 2.0 04/09/19 08:41 101 125/76 04/09/19 08:03 105 04/09/19 08:00 98.2 107 18 125/76 (92) 100 04/09/19 04:00 107 04/09/19 04:00 97.9 106 20 108/75 (86) 100 04/08/19 23:57 98.0 95 20 114/78 (90) 100 04/08/19 21:39 104 112/75 04/08/19 21:00 Nasal Cannula 2.0 04/08/19 20:00 97.7 103 20 112/74 (87) 100 04/08/19 20:00 106 Intake and Output 04/08/19 04/09/19 19:00 07:00 Intake Total 1750 ml 125 ml Output Total 550 ml 700 ml Balance 1200 ml -575 ml Free Water 130 ml IV Total 900 ml 125 ml Tube Feeding 720 ml Output Urine Total 550 ml 700 ml # Bowel Movements 4 Laboratory Tests Test 04/09/19 05:00 White Blood Count 11.1 K/UL (4.8-10.8) H Red Blood Count 3.42 M/UL (4.70-6.10) L Hemoglobin 10.1 G/DL (14.2-18.0) L Hematocrit 29.9 % (42.0-52.0) L Mean Corpuscular Volume 87 FL (80-99) Mean Corpuscular Hemoglobin 29.4 PG (27.0-31.0) Mean Corpuscular Hemoglobin Concent 33.6 G/DL (32.0-36.0) Red Cell Distribution Width 12.1 % (11.6-14.8) Platelet Count 435 K/UL (150-450) Mean Platelet Volume 6.8 FL (6.5-10.1) Neutrophils (%) (Auto) 67.8 % (45.0-75.0) Lymphocytes (%) (Auto) 21.1 % (20.0-45.0) Monocytes (%) (Auto) 4.6 % (1.0-10.0) Eosinophils (%) (Auto) 5.7 % (0.0-3.0) H Basophils (%) (Auto) 0.8 % (0.0-2.0) Sodium Level 143 MMOL/L (136-145) Potassium Level 3.3 MMOL/L (3.5-5.1) L Chloride Level 106 MMOL/L (98-107) Carbon Dioxide Level 26 MMOL/L (21-32) Anion Gap 11 mmol/L (5-15) Blood Urea Nitrogen 21 mg/dL (7-18) H Creatinine 0.5 MG/DL (0.55-1.30) L Estimat Glomerular Filtration Rate > 60 mL/min (>60) Glucose Level 139 MG/DL (74-106) H Uric Acid 3.7 MG/DL (2.6-7.2) Calcium Level 9.1 MG/DL (8.5-10.1) Phosphorus Level 2.6 MG/DL (2.5-4.9) Magnesium Level 1.7 MG/DL (1.8-2.4) L Total Bilirubin 0.3 MG/DL (0.2-1.0) Aspartate Amino Transf (AST/SGOT) 22 U/L (15-37) Alanine Aminotransferase (ALT/SGPT) 52 U/L (12-78) Alkaline Phosphatase 60 U/L (46-116) C-Reactive Protein, Quantitative 3.7 mg/dL (0.00-0.90) H Pro-B-Type Natriuretic Peptide 31 pg/mL (0-125) Total Protein 6.4 G/DL (6.4-8.2) Albumin 2.2 G/DL (3.4-5.0) L Globulin 4.2 g/dL Albumin/Globulin Ratio 0.5 (1.0-2.7) L Objective HEAD AND NECK: No JVD. Old tracheostomy site closed. LUNGS: Coarse rhonchi. CARDIOVASCULAR: Tachy S1 and S2 with no gallop. ABDOMEN: Soft, status post G-tube. EXTREMITIES: No pitting edema. Jim Manjarrez MD Apr 09, 2019 19:03
[2019-04-09 20:00] VITALS: BP 139/54
--- NOTE | 2019-04-09 21:31 | General Progress Note ---
Assessment/Plan Problem List: (1) Schizoaffective disorder ICD Codes: F25.9 - Schizoaffective disorder, unspecified SNOMED: 66585538 (2) Seizure disorder ICD Codes: G40.909 - Epilepsy, unspecified, not intractable, without status epilepticus SNOMED: 271145998 (3) Dehydration ICD Codes: E86.0 - Dehydration SNOMED: 14793355, 660427920 (4) Sepsis ICD Codes: A41.9 - Sepsis, unspecified organism SNOMED: 43345497, 397816950 Qualifiers: Qualified Codes: A41.9 - Sepsis, unspecified organism (5) Acute metabolic encephalopathy ICD Codes: G93.41 - Metabolic encephalopathy SNOMED: 65268045, 372104402 Status: progressing, not improved, unchanged Assessment/Plan: sepsis encepahlopathy intermittent fever fever of unknown etiology confused lethargic no acute events abx per id Subjective ROS Limited/Unobtainable: Yes Allergies: Coded Allergies: No Known Allergies (Unverified , 08/20/18) Objective Last 24 Hour Vital Signs Date Time Temp Pulse Resp B/P (MAP) Pulse Ox O2 Delivery O2 Flow Rate FiO2 04/09/19 16:00 102 04/09/19 16:00 98.1 77 20 113/74 (87) 100 04/09/19 12:00 Nasal Cannula 2.0 04/09/19 12:00 89 04/09/19 12:00 98.2 93 20 102/75 (84) 100 04/09/19 09:00 Nasal Cannula 2.0 04/09/19 08:41 101 125/76 04/09/19 08:03 105 04/09/19 08:00 98.2 107 18 125/76 (92) 100 04/09/19 04:00 107 04/09/19 04:00 97.9 106 20 108/75 (86) 100 04/08/19 23:57 98.0 95 20 114/78 (90) 100 04/08/19 21:39 104 112/75 Intake and Output 04/08/19 04/09/19 18:59 06:59 Intake Total 1650 ml 690 ml Output Total 550 ml 700 ml Balance 1100 ml -10 ml Free Water 130 ml 50 ml IV Total 800 ml 100 ml Tube Feeding 720 ml 540 ml Output Urine Total 550 ml 700 ml # Bowel Movements 4 Laboratory Tests 04/09/19 05:00: White Blood Count 11.1H, Red Blood Count 3.42L, Hemoglobin 10.1L, Hematocrit 29.9L, Mean Corpuscular Volume 87, Mean Corpuscular Hemoglobin 29.4, Mean Corpuscular Hemoglobin Concent 33.6, Red Cell Distribution Width 12.1, Platelet Count 435, Mean Platelet Volume 6.8, Neutrophils (%) (Auto) 67.8, Lymphocytes (% ) (Auto) 21.1, Monocytes (%) (Auto) 4.6, Eosinophils (%) (Auto) 5.7H, Basophils (%) (Auto) 0.8, Sodium Level 143, Potassium Level 3.3L, Chloride Level 106, Carbon Dioxide Level 26, Anion Gap 11, Blood Urea Nitrogen 21H, Creatinine 0.5L , Estimat Glomerular Filtration Rate > 60, Glucose Level 139H, Uric Acid 3.7, Calcium Level 9.1, Phosphorus Level 2.6, Magnesium Level 1.7L, Total Bilirubin 0.3, Aspartate Amino Transf (AST/SGOT) 22, Alanine Aminotransferase (ALT/SGPT) 52, Alkaline Phosphatase 60, C-Reactive Protein, Quantitative 3.7H, Pro-B-Type Natriuretic Peptide 31, Total Protein 6.4, Albumin 2.2L, Globulin 4.2, Albumin/ Globulin Ratio 0.5L Height (Feet): 5 Height (Inches): 7.00 Weight (Pounds): 150 General Appearance: confused Respiratory/Chest: lungs clear Abdomen: soft Lenin Wyatt MD Apr 09, 2019 21:31
[2019-04-09] MEDS: Sennosides 8.6mg tab GT SCH (21:57)
--- NOTE | 2019-04-09 23:40 | Neurology Progress Note ---
Interim History Interim History ROS Limited/Unobtainable: Yes Complaints: AMS Events: This visit was performed on April 09, [address] Jin Interim History Intermittent fevers, ongoing leukocytosis but unchanged neuro exam. Review of Systems All Systems: reviewed and negative except above Objective Physical Exam Last Vital Signs Date Time Temp Pulse Resp B/P (MAP) Pulse Ox O2 Delivery O2 Flow Rate FiO2 04/09/19 21:56 110 139/53 04/09/19 21:00 Nasal Cannula 2.0 04/09/19 20:00 98.9 18 100 04/07/19 20:37 28 Laboratory Tests Test 04/09/19 05:00 White Blood Count 11.1 K/UL (4.8-10.8) H Red Blood Count 3.42 M/UL (4.70-6.10) L Hemoglobin 10.1 G/DL (14.2-18.0) L Hematocrit 29.9 % (42.0-52.0) L Mean Corpuscular Volume 87 FL (80-99) Mean Corpuscular Hemoglobin 29.4 PG (27.0-31.0) Mean Corpuscular Hemoglobin Concent 33.6 G/DL (32.0-36.0) Red Cell Distribution Width 12.1 % (11.6-14.8) Platelet Count 435 K/UL (150-450) Mean Platelet Volume 6.8 FL (6.5-10.1) Neutrophils (%) (Auto) 67.8 % (45.0-75.0) Lymphocytes (%) (Auto) 21.1 % (20.0-45.0) Monocytes (%) (Auto) 4.6 % (1.0-10.0) Eosinophils (%) (Auto) 5.7 % (0.0-3.0) H Basophils (%) (Auto) 0.8 % (0.0-2.0) Sodium Level 143 MMOL/L (136-145) Potassium Level 3.3 MMOL/L (3.5-5.1) L Chloride Level 106 MMOL/L (98-107) Carbon Dioxide Level 26 MMOL/L (21-32) Anion Gap 11 mmol/L (5-15) Blood Urea Nitrogen 21 mg/dL (7-18) H Creatinine 0.5 MG/DL (0.55-1.30) L Estimat Glomerular Filtration Rate > 60 mL/min (>60) Glucose Level 139 MG/DL (74-106) H Uric Acid 3.7 MG/DL (2.6-7.2) Calcium Level 9.1 MG/DL (8.5-10.1) Phosphorus Level 2.6 MG/DL (2.5-4.9) Magnesium Level 1.7 MG/DL (1.8-2.4) L Total Bilirubin 0.3 MG/DL (0.2-1.0) Aspartate Amino Transf (AST/SGOT) 22 U/L (15-37) Alanine Aminotransferase (ALT/SGPT) 52 U/L (12-78) Alkaline Phosphatase 60 U/L (46-116) C-Reactive Protein, Quantitative 3.7 mg/dL (0.00-0.90) H Pro-B-Type Natriuretic Peptide 31 pg/mL (0-125) Total Protein 6.4 G/DL (6.4-8.2) Albumin 2.2 G/DL (3.4-5.0) L Globulin 4.2 g/dL Albumin/Globulin Ratio 0.5 (1.0-2.7) L General: well developed, well nourished Head: normocophalic Neck: other EENT: benign, other Neurologic Exam Mental Status: other Speech: other Language: other Cranial Nerve II: fundus normal, visual roberts, no papilledema, other Cranial Nerves III, IV, : PERRLA, EOMI, other Cranial Nerve V: other Cranial Nerve VII: other Cranial Nerve VIII: other Cranial Nerve IX: other Cranial Nerve X: other Cranial Nerve XI: other Cranial Nerve XII: other Motor System: other Sensory: other Coordination: other - Patient has tracheostomy scar at throat, is tracking intermittently with his eyes, he doesn't follow commands, has rigid tone and spasticity in all extremities and triple flexes in LEs bilaterally with mild decerebrate posturing in UEs on noxious stim. Deep Tendon Reflexes: 1+ bicep (L), 1+ bicep (R), 1+ tricep (L), 1+ tricep (R) , 1+ brachioradialis (L), 1+ brachioradialis (R), 1+ knee (L), 1+ knee (R), 1+ ankle (L), 1+ ankle (R) Reflexes: flexor plantar (L), flexor plantar (R); extensor plantar (L), extensor plantar (R) Objective Patient has tracheostomy scar at throat, is tracking intermittently with his eyes, he doesn't follow commands, has rigid tone and spasticity in all extremities and triple flexes in LEs bilaterally with mild decerebrate posturing in UEs on noxious stim. He has nystagmus on gaze at rest bilaterally - He is much more alert still with fever now. Impression/Recommendations Problems: (1) Seizure disorder (2) Anoxic brain injury Assessment & Plan: Central fevers probable but no explanation for leukocytosis. No indication or likelihood of meningitis- no need for LP at this time. MRI was negative for any acute events. (3) Sepsis (4) Acute hypernatremia (5) Dehydration (6) Encephalopathy due to metabolic factor or toxin (7) Acute metabolic encephalopathy (8) Weakness generalized (9) Schizoaffective disorder (10) Acute prerenal azotemia (11) Acute renal failure (12) Hypercalcemia (13) Diarrhea (14) SBO (small bowel obstruction) (15) Anemia (16) Dysphagia (17) Feeding by G-tube Status: stable, unchanged Diagnostic Impression Central Fevers secondary to severe cerebral dysfunction are a possibility but do not explain his leukocytosis. No apparent focal or generalized seizure activity at this time or seen on EEG. Recommendations Q4 Hour obs Na 135-145 = water flushes to PEG feeding schedule Telemetry monitoring Maintain normothermia with Ibuprofen Abx as per ID- currently on flagyl Please consider NS instead of D5 IV fluid Maintain normoglycemia with ISS SBP<140 Continue Keppra 1000 mg BID - Ativan 1mg PRN for seizure Replete/ Replace lytes Cultures Negative Chey Long N.P. Apr 09, 2019 23:40
[2019-04-10] VITALS: BP 113/84
[2019-04-10 04:00] VITALS: BP 117/79
[2019-04-10] MEDS: metroNIDAZOLE 500mg tab GT SCH ×3 (05:34→21:50)
[2019-04-10 08:00] VITALS: BP 107/82
[2019-04-10] MEDS: levETIRAcetam 500mg/5ml Liquid ORAL SCH ×2 (08:29→21:07)
[2019-04-10] MEDS: Docusate 100mg/10ml Liq GT SCH ×3 (08:30→17:31)
[2019-04-10] MEDS: Miralax 17gm pkt NG SCH (08:31)
--- NOTE | 2019-04-10 09:51 | Infectious Diseases Prog Note ---
Assessment/Plan Assessment/Plan IMPRESSION: 1. Fever of unknown origin 2. Leukocytosis 3. Tachycardia. 4. He has anoxic encephalopathy. 5. MRSA colonization. 6. Hypernatremia and azotemia. 7. Seizure disorder. 8. Hypertension. 9. enteritis 10. Diarrhea, c.difficile test negative RECOMMENDATION: Continue Flagyl & Ibuprofen Maybe discharged to SNF Subjective ROS Limited/Unobtainable: Yes Constitutional: Denies: fever Gastrointestinal/Abdominal: Reports: diarrhea Allergies: Coded Allergies: No Known Allergies (Unverified , 08/20/18) Objective Vital Signs Last 24 Hour Vital Signs Date Time Temp Pulse Resp B/P (MAP) Pulse Ox O2 Delivery O2 Flow Rate FiO2 04/10/19 09:00 Nasal Cannula 2.0 04/10/19 08:30 118 107/82 04/10/19 08:03 117 04/10/19 08:00 98.4 118 16 107/82 (90) 99 04/10/19 04:00 98.2 119 20 117/79 (92) 100 04/10/19 03:43 121 04/10/19 00:00 98.9 98 20 113/84 (94) 100 04/09/19 21:56 110 139/53 04/09/19 21:00 Nasal Cannula 2.0 04/09/19 20:00 98.9 110 18 139/54 (82) 100 04/09/19 20:00 111 04/09/19 16:00 102 04/09/19 16:00 98.1 77 20 113/74 (87) 100 04/09/19 12:00 Nasal Cannula 2.0 04/09/19 12:00 89 04/09/19 12:00 98.2 93 20 102/75 (84) 100 Height (Feet): 5 Height (Inches): 7.00 Weight (Pounds): 150 General Appearance: no acute distress HEENT: mucous membranes moist Respiratory/Chest: lungs clear Cardiovascular: tachycardia Abdomen: soft, non tender, other - GT feeding Extremities: no edema Neurologic/Psychiatric: alert, disoriented, aphasia Current Medications Medications (Trade) Dose Ordered Sig/Yohannes Route PRN Reason Start Time Stop Time Status Last Admin Dose Admin Acetaminophen (Tylenol) 650 mg Q6H PRN GT Mild Pain/Temp > 100.5 04/05/19 03:00 04/20/19 02:59 6/13/19 23:32 Bisacodyl (Dulcolax) 10 mg DAILY PRN RECTAL Constipation 04/05/19 09:00 04/22/19 18:59 Dextrose 1,000 ml @ 50 mls/hr Q20H IV 04/09/19 10:30 05/08/19 10:29 04/10/19 05:34 Docusate Sodium (Colace) 100 mg TID GT 04/05/19 09:00 04/23/19 08:59 04/10/19 08:30 Ibuprofen (Children's Advil) 200 mg Q6H PRN GT fever 04/07/19 10:45 05/07/19 10:44 Lansoprazole (Prevacid) 30 mg DAILY GT 04/05/19 09:00 04/26/19 15:14 04/10/19 08:30 Levetiracetam (Keppra) 1,000 mg Q12HR ORAL 04/05/19 09:00 04/20/19 08:59 04/10/19 08:29 Loperamide HCl (Imodium) 2 mg Q6H PRN GT Diarrhea 04/04/19 21:30 05/04/19 21:29 Metoprolol Tartrate (Lopressor) 100 mg EVERY 12 HOURS GT 04/06/19 21:00 04/26/19 20:59 04/10/19 08:30 Metronidazole (Flagyl) 500 mg Q8HR GT 04/06/19 14:00 04/13/19 13:59 04/10/19 05:34 Polyethylene Glycol (Miralax) 17 gm DAILY NG 04/05/19 09:00 04/20/19 08:59 04/10/19 08:31 Potassium Chloride (K-Dur) 20 meq TWICE A DAY GT 04/09/19 10:30 05/09/19 10:29 04/10/19 08:30 Sennosides (Senokot) 17.2 mg BEDTIME GT 04/05/19 21:00 04/20/19 20:59 04/09/19 21:57 Yash Shay MD Apr 10, 2019 09:51
[2019-04-10] MEDS ORDERED: NS 275ml ONE (10:05)
[2019-04-10] MEDS ORDERED: D5NS 1000ml IV ONE (10:05)
[2019-04-10] MEDS ORDERED: Tubing IV Secondary IV ONE (10:05)
[2019-04-10 12:00] VITALS: BP 106/69
--- NOTE | 2019-04-10 13:41 | Nephrology Progress Note ---
Assessment/Plan Problem List: (1) Acute renal failure (2) Acute prerenal azotemia Assessment: dehydration (3) Dehydration (4) Seizure disorder (5) Anoxic brain injury (6) Sepsis (7) Hypercalcemia Assessment Renal failure: Dehydration Hypernatremia, Free water deficit Sepsis Acute metabolic encephalopathy PEG Sz disorder HTN Plan D5W for high Na Phos , K , Lytes : adjustments lowering Cr High Vanco level , now lowering One dose Aredia for high Ca- Calcium now in range- IV adjusted. K and Phos and Mag as needed monitor lytes GT feeding NS IV Fluids Coreg GT change to lopressor monitor electrolytes per orders Subjective ROS Limited/Unobtainable: Yes Objective Objective Last 24 Hour Vital Signs Date Time Temp Pulse Resp B/P (MAP) Pulse Ox O2 Delivery O2 Flow Rate FiO2 04/10/19 12:00 98.1 107 20 106/69 (81) 100 04/10/19 12:00 Nasal Cannula 2.0 04/10/19 11:36 112 04/10/19 09:00 Nasal Cannula 2.0 04/10/19 08:30 118 107/82 04/10/19 08:03 117 04/10/19 08:00 98.4 118 16 107/82 (90) 99 04/10/19 04:00 98.2 119 20 117/79 (92) 100 04/10/19 03:43 121 04/10/19 00:00 98.9 98 20 113/84 (94) 100 04/09/19 21:56 110 139/53 04/09/19 21:00 Nasal Cannula 2.0 04/09/19 20:00 98.9 110 18 139/54 (82) 100 04/09/19 20:00 111 04/09/19 16:00 102 04/09/19 16:00 98.1 77 20 113/74 (87) 100 Intake and Output 04/09/19 04/10/19 19:00 07:00 Intake Total 1140 ml 1360 ml Output Total 480 ml Balance 660 ml 1360 ml Free Water 100 ml IV Total 900 ml 600 ml Tube Feeding 240 ml 660 ml Output Urine Total 480 ml # Bowel Movements 1 2 Height (Feet): 5 Height (Inches): 7.00 Weight (Pounds): 150 General Appearance: no apparent distress Cardiovascular: tachycardia Respiratory/Chest: decreased breath sounds Abdomen: distended Objective no change Janes Barros MD Apr 10, 2019 13:40
--- NOTE | 2019-04-10 14:08 | Surgery Progress Note ---
Surgery Progress Note Subjective Additional Comments no acute events. stable. Objective Last 24 Hour Vital Signs Date Time Temp Pulse Resp B/P (MAP) Pulse Ox O2 Delivery O2 Flow Rate FiO2 04/10/19 12:00 98.1 107 20 106/69 (81) 100 04/10/19 12:00 Nasal Cannula 2.0 04/10/19 11:36 112 04/10/19 09:00 Nasal Cannula 2.0 04/10/19 08:30 118 107/82 04/10/19 08:03 117 04/10/19 08:00 98.4 118 16 107/82 (90) 99 04/10/19 04:00 98.2 119 20 117/79 (92) 100 04/10/19 03:43 121 04/10/19 00:00 98.9 98 20 113/84 (94) 100 04/09/19 21:56 110 139/53 04/09/19 21:00 Nasal Cannula 2.0 04/09/19 20:00 98.9 110 18 139/54 (82) 100 04/09/19 20:00 111 04/09/19 16:00 102 04/09/19 16:00 98.1 77 20 113/74 (87) 100 I&O Intake and Output 04/09/19 04/10/19 19:00 07:00 Intake Total 1140 ml 1360 ml Output Total 480 ml Balance 660 ml 1360 ml Free Water 100 ml IV Total 900 ml 600 ml Tube Feeding 240 ml 660 ml Output Urine Total 480 ml # Bowel Movements 1 2 Dressing: saturated Wound: other Drains: other Cardiovascular: RSR Respiratory: decreased breath sounds Abdomen: soft, present bowel sounds, non-distended Extremities: no cyanosis Plan Problems: (1) Acute prerenal azotemia (2) Weakness generalized (3) Schizoaffective disorder (4) Acute hypernatremia (5) Dehydration (6) Seizure disorder (7) Sepsis Assessment & Plan: febrile, tachycardia, leukocytosis etiology unknown exam without significant pathology cultures negative thus far cxr okay ct noted No evidence of bowel obstruction. Liquefied stool in the colon and mild distention of the rectum. Correlate for diarrhea and gastroenteritis. 1 cm left adrenal mass probably adenoma. MRI evaluation may be of benefit. Gastrostomy. -trend labs venous duplex studies negative overall labs and fever curve improving on abx will follow with recs thank you (8) Anoxic brain injury (9) Encephalopathy due to metabolic factor or toxin (10) Acute metabolic encephalopathy (11) Acute renal failure (12) Hypercalcemia (13) Diarrhea (14) SBO (small bowel obstruction) Assessment & Plan: CT with Ingested contrast is traversed only a short distance into the small bowel. There is diffuse mild dilatation of the proximal to mid small bowel, collapsed distal small bowel loops. Uncertain point of transition although probably in the lower mid abdomen/upper pelvis. There is only minimal forward transit of contrast There is mild distention of the distal sigmoid and rectum by what appears to be fluid contents. No downstream obstructive lesion demonstrated. There is colonic diverticulosis. The appendix is normal. No free or loculated intraperitoneal gas or fluid is evident. There is edema of the presacral fat. There are surgical clips in the anterior gastric wall. There is a gastrostomy in appropriate position in the gastric body. The distal esophagus and duodenum are unremarkable. Lack of IV contrast limits assessment of the solid organs. Liver, gallbladder, bile ducts, pancreas, spleen, adrenals are unremarkable. 1 cm exophytic cyst comes off of the pole region of the left kidney, as well as a smaller exophytic subcentimeter low-attenuation lesion which is too small to characterize. There is also a very subtle 2 cm fluid attenuation cyst coming off of the lower pole. The right kidney is unremarkable. No pelvic mass or adenopathy. follow up KUB without pathology now with loose stools c diff negative appreciate GI input okay for tube feeds as above thank you (15) Anemia (16) Dysphagia (17) Feeding by G-tube Sean Thornton Apr 10, 2019 14:08
[2019-04-10 16:00] VITALS: BP_SYST 105; BP_SYST 118; BP_DIAS 72; BP_DIAS 74
--- NOTE | 2019-04-10 16:42 | Cardiac Electrophysiology PN ---
Assessment/Plan Assessment/Plan 1. Sinus tachycardia due to fever and dehydration. On Metoprolol 100 bid. EF 60%. 2. Hypertension. On Metoprolol 100 bid 3. Sepsis, on IV antibiotic 4. Dysphagia, status post PEG 5. Anoxic brain injury and seizures. MRI brain negative for any acute findings. On Keppra 6. Acute renal failure and dehydration, resolved Cr 0.7 7. Possible SBO by CT abdomen. Resolved. FU Dr Ospina. DW RN DC tele Subjective Subjective Nonverbal in sinus with no new events. On nasal cannula. Objective Last 24 Hour Vital Signs Date Time Temp Pulse Resp B/P (MAP) Pulse Ox O2 Delivery O2 Flow Rate FiO2 04/10/19 12:00 98.1 107 20 106/69 (81) 100 04/10/19 12:00 Nasal Cannula 2.0 04/10/19 11:36 112 04/10/19 09:00 Nasal Cannula 2.0 04/10/19 08:30 118 107/82 04/10/19 08:03 117 04/10/19 08:00 98.4 118 16 107/82 (90) 99 04/10/19 04:00 98.2 119 20 117/79 (92) 100 04/10/19 03:43 121 04/10/19 00:00 98.9 98 20 113/84 (94) 100 04/09/19 21:56 110 139/53 04/09/19 21:00 Nasal Cannula 2.0 04/09/19 20:00 98.9 110 18 139/54 (82) 100 04/09/19 20:00 111 Intake and Output 04/09/19 04/10/19 19:00 07:00 Intake Total 1140 ml 1360 ml Output Total 480 ml Balance 660 ml 1360 ml Free Water 100 ml IV Total 900 ml 600 ml Tube Feeding 240 ml 660 ml Output Urine Total 480 ml # Bowel Movements 1 2 Objective HEAD AND NECK: No JVD. Old tracheostomy site closed. LUNGS: Coarse rhonchi. CARDIOVASCULAR: Tachy S1 and S2 with no gallop. ABDOMEN: Soft, status post G-tube. EXTREMITIES: No pitting edema. Jim Manjarrez MD Apr 10, 2019 16:42
[2019-04-10 20:00] VITALS: BP 104/67
[2019-04-10] MEDS: Sennosides 8.6mg tab GT SCH (21:07)
--- NOTE | 2019-04-10 22:01 | General Progress Note ---
Assessment/Plan Problem List: (1) Schizoaffective disorder ICD Codes: F25.9 - Schizoaffective disorder, unspecified SNOMED: 26272981 (2) Seizure disorder ICD Codes: G40.909 - Epilepsy, unspecified, not intractable, without status epilepticus SNOMED: 392735625 (3) Dehydration ICD Codes: E86.0 - Dehydration SNOMED: 54212338, 306346633 (4) Sepsis ICD Codes: A41.9 - Sepsis, unspecified organism SNOMED: 65825792, 667440312 Qualifiers: Qualified Codes: A41.9 - Sepsis, unspecified organism (5) Acute metabolic encephalopathy ICD Codes: G93.41 - Metabolic encephalopathy SNOMED: 46881037, 437719513 Status: progressing, not improved, unchanged Assessment/Plan: intermittent fever sepsis abx per id no seizure today Subjective ROS Limited/Unobtainable: Yes Allergies: Coded Allergies: No Known Allergies (Unverified , 08/20/18) Objective Last 24 Hour Vital Signs Date Time Temp Pulse Resp B/P (MAP) Pulse Ox O2 Delivery O2 Flow Rate FiO2 04/10/19 21:06 123 104/67 04/10/19 16:00 Nasal Cannula 2.0 04/10/19 16:00 98.4 115 16 105/74 (84) 100 04/10/19 15:23 116 04/10/19 12:00 98.1 107 20 106/69 (81) 100 04/10/19 12:00 Nasal Cannula 2.0 04/10/19 11:36 112 04/10/19 09:00 Nasal Cannula 2.0 04/10/19 08:30 118 107/82 04/10/19 08:03 117 04/10/19 08:00 98.4 118 16 107/82 (90) 99 04/10/19 04:00 98.2 119 20 117/79 (92) 100 04/10/19 03:43 121 04/10/19 00:00 98.9 98 20 113/84 (94) 100 Intake and Output 04/09/19 04/10/19 19:00 07:00 Intake Total 1140 ml 1360 ml Output Total 480 ml Balance 660 ml 1360 ml Free Water 100 ml IV Total 900 ml 600 ml Tube Feeding 240 ml 660 ml Output Urine Total 480 ml # Bowel Movements 1 2 Height (Feet): 5 Height (Inches): 7.00 Weight (Pounds): 150 Cardiovascular: normal rate Respiratory/Chest: lungs clear Abdomen: soft Lenin Wyatt MD Apr 10, 2019 22:01
--- NOTE | 2019-04-10 23:55 | Neurology Progress Note ---
Interim History Interim History ROS Limited/Unobtainable: Yes Complaints: AMS Events: This visit was performed on April 10, [address] Jin Interim History Intermittent fevers and leukocytosis, unchanged neurological exam Review of Systems All Systems: reviewed and negative except above Objective Physical Exam Last Vital Signs Date Time Temp Pulse Resp B/P (MAP) Pulse Ox O2 Delivery O2 Flow Rate FiO2 04/10/19 21:06 123 104/67 04/10/19 21:00 Nasal Cannula 2.0 04/10/19 20:00 98.2 20 100 04/07/19 20:37 28 General: well developed, well nourished, no acute distress Head: normocophalic Neck: other EENT: benign, other Neurologic Exam Mental Status: other Speech: other Language: other Cranial Nerve II: fundus normal, visual roberts, no papilledema, other Cranial Nerves III, IV, : PERRLA, EOMI, other Cranial Nerve V: other Cranial Nerve VII: other Cranial Nerve VIII: other Cranial Nerve IX: other Cranial Nerve X: other Cranial Nerve XI: other Cranial Nerve XII: other Motor System: other Sensory: other Coordination: other - Patient has tracheostomy scar at throat, is tracking intermittently with his eyes, he doesn't follow commands, has rigid tone and spasticity in all extremities and triple flexes in LEs bilaterally with mild decerebrate posturing in UEs on noxious stim. Deep Tendon Reflexes: 1+ bicep (L), 1+ bicep (R), 1+ tricep (L), 1+ tricep (R) , 1+ brachioradialis (L), 1+ brachioradialis (R), 1+ knee (L), 1+ knee (R), 1+ ankle (L), 1+ ankle (R) Reflexes: flexor plantar (L), flexor plantar (R); extensor plantar (L), extensor plantar (R) Objective Patient has tracheostomy scar at throat, is tracking intermittently with his eyes, he doesn't follow commands, has rigid tone and spasticity in all extremities and triple flexes in LEs bilaterally with mild decerebrate posturing in UEs on noxious stim. He has nystagmus on gaze at rest bilaterally - He is much more alert still with fever now. Impression/Recommendations Problems: (1) Seizure disorder (2) Anoxic brain injury Assessment & Plan: Central fevers probable but no explanation for leukocytosis. No indication or likelihood of meningitis- no need for LP at this time. MRI was negative for any acute events. (3) Sepsis (4) Acute hypernatremia (5) Dehydration (6) Encephalopathy due to metabolic factor or toxin (7) Acute metabolic encephalopathy (8) Weakness generalized (9) Schizoaffective disorder (10) Acute prerenal azotemia (11) Acute renal failure (12) Hypercalcemia (13) Diarrhea (14) SBO (small bowel obstruction) (15) Anemia (16) Dysphagia (17) Feeding by G-tube Status: stable, unchanged, fever Diagnostic Impression Central Fevers secondary to severe cerebral dysfunction are a possibility but do not explain his leukocytosis. No apparent focal or generalized seizure activity at this time or seen on EEG. Recommendations Q4 Hour obs Na 135-145 = water flushes to PEG feeding schedule Telemetry monitoring Maintain normothermia with Ibuprofen Abx as per ID- currently on flagyl Please consider NS instead of D5 IV fluid Maintain normoglycemia with ISS SBP<140 Continue Keppra 1000 mg BID - Ativan 1mg PRN for seizure Replete/ Replace lytes Cultures Negative Chey Long N.P. Apr 10, 2019 23:55
[2019-04-11] VITALS: BP 104/75
[2019-04-11 04:00] VITALS: BP 123/66
--- NOTE | 2019-04-11 05:16 | Cardiac Electrophysiology PN ---
Assessment/Plan Assessment/Plan 1. Sinus tachycardia due to fever and dehydration. On Metoprolol 100 bid. EF 60%. 2. Hypertension. On Metoprolol 100 bid 3. Sepsis, on IV antibiotic 4. Dysphagia, status post PEG 5. Anoxic brain injury and seizures. MRI brain negative for any acute findings. On Keppra 6. Acute renal failure and dehydration, resolved Cr 0.7 7. Possible SBO by CT abdomen. Resolved. FU Dr Ospina. STONEY RN Subjective Subjective Nonverbal in sinus . On nasal cannula. Objective Last 24 Hour Vital Signs Date Time Temp Pulse Resp B/P (MAP) Pulse Ox O2 Delivery O2 Flow Rate FiO2 04/11/19 04:00 98.2 120 19 123/66 (85) 100 04/11/19 00:00 98.2 107 20 104/75 (85) 100 04/10/19 23:26 102 04/10/19 21:06 123 104/67 04/10/19 21:00 Nasal Cannula 2.0 04/10/19 20:00 98.2 123 20 104/67 (79) 100 04/10/19 20:00 120 04/10/19 16:00 Nasal Cannula 2.0 04/10/19 16:00 98.4 115 16 105/74 (84) 100 04/10/19 15:23 116 04/10/19 12:00 98.1 107 20 106/69 (81) 100 04/10/19 12:00 Nasal Cannula 2.0 04/10/19 11:36 112 04/10/19 09:00 Nasal Cannula 2.0 04/10/19 08:30 118 107/82 04/10/19 08:03 117 04/10/19 08:00 98.4 118 16 107/82 (90) 99 Intake and Output 04/10/19 04/11/19 18:59 06:59 Intake Total 1570 ml 820 ml Output Total 750 ml 200 ml Balance 820 ml 620 ml Free Water 250 ml 50 ml IV Total 600 ml 350 ml Tube Feeding 720 ml 420 ml Output Urine Total 750 ml 200 ml # Voids 1 # Bowel Movements 4 1 Objective HEAD AND NECK: No JVD. Old tracheostomy site closed. LUNGS: Coarse rhonchi. CARDIOVASCULAR: Tachy S1 and S2 with no gallop. ABDOMEN: Soft, status post G-tube. EXTREMITIES: No pitting edema. Jim Manjarrez MD Apr 11, 2019 05:16
[2019-04-11] MEDS: metroNIDAZOLE 500mg tab GT SCH ×3 (05:28→21:46)
[2019-04-11 08:00] VITALS: BP 121/72
--- NOTE | 2019-04-11 10:18 | General Progress Note ---
Assessment/Plan Problem List: (1) Anemia ICD Codes: D64.9 - Anemia, unspecified SNOMED: 686980774 (2) Dysphagia ICD Codes: R13.10 - Dysphagia, unspecified SNOMED: 79705100, 225177627 (3) Feeding by G-tube ICD Codes: Z93.1 - Gastrostomy status SNOMED: 067295283, 809774714, 540576688 (4) Anoxic brain injury ICD Codes: G93.1 - Anoxic brain damage, not elsewhere classified SNOMED: 856477541 (5) Seizure disorder ICD Codes: G40.909 - Epilepsy, unspecified, not intractable, without status epilepticus SNOMED: 469770890 (6) Schizoaffective disorder ICD Codes: F25.9 - Schizoaffective disorder, unspecified SNOMED: 07204747 Status: progressing, not improved, unchanged Assessment/Plan: no SBO per X ray and exam C. difficile negative GTF as tolerated to 60 cc Imodium as needed PPI Electrolyte correction surgical input appreciated repeat labs in am Subjective ROS Limited/Unobtainable: No Allergies: Coded Allergies: No Known Allergies (Unverified , 08/20/18) Objective Last 24 Hour Vital Signs Date Time Temp Pulse Resp B/P (MAP) Pulse Ox O2 Delivery O2 Flow Rate FiO2 04/11/19 08:00 98.2 119 18 121/72 (88) 100 04/11/19 04:00 98.2 120 19 123/66 (85) 100 04/11/19 03:24 106 04/11/19 00:00 98.2 107 20 104/75 (85) 100 04/10/19 23:26 102 04/10/19 21:06 123 104/67 04/10/19 21:00 Nasal Cannula 2.0 04/10/19 20:00 98.2 123 20 104/67 (79) 100 04/10/19 20:00 120 04/10/19 16:00 Nasal Cannula 2.0 04/10/19 16:00 98.4 115 16 105/74 (84) 100 04/10/19 15:23 116 04/10/19 12:00 98.1 107 20 106/69 (81) 100 04/10/19 12:00 Nasal Cannula 2.0 04/10/19 11:36 112 Intake and Output 04/10/19 04/11/19 19:00 07:00 Intake Total 1520 ml 1348.84503 ml Output Total 750 ml 700 ml Balance 770 ml 648.07072 ml Free Water 200 ml 50 ml IV Total 600 ml 578.51395 ml Tube Feeding 720 ml 720 ml Output Urine Total 750 ml 700 ml # Voids 3 # Bowel Movements 4 1 Height (Feet): 5 Height (Inches): 7.00 Weight (Pounds): 150 General Appearance: no apparent distress EENT: normal ENT inspection Neck: supple Cardiovascular: normal rate Respiratory/Chest: decreased breath sounds Abdomen: normal bowel sounds, non tender, soft Extremities: non-tender Ruddy Ospina MD Apr 11, 2019 10:18
[2019-04-11] MEDS: levETIRAcetam 500mg/5ml Liquid ORAL SCH ×2 (10:29→21:46)
[2019-04-11 12:00] VITALS: BP 106/69
--- NOTE | 2019-04-11 12:12 | Nephrology Progress Note ---
Assessment/Plan Problem List: (1) Acute renal failure (2) Acute prerenal azotemia Assessment: dehydration (3) Dehydration (4) Seizure disorder (5) Anoxic brain injury (6) Sepsis (7) Hypercalcemia Assessment Renal failure: Dehydration Hypernatremia, Free water deficit Sepsis Acute metabolic encephalopathy PEG Sz disorder HTN Plan D5W for high Na Phos , K , Lytes : adjustments lowering Cr High Vanco level , now lowering One dose Aredia for high Ca- Calcium now in range- IV adjusted. K and Phos and Mag as needed monitor lytes GT feeding NS IV Fluids Coreg GT change to lopressor monitor electrolytes per orders Subjective ROS Limited/Unobtainable: No Objective Objective Last 24 Hour Vital Signs Date Time Temp Pulse Resp B/P (MAP) Pulse Ox O2 Delivery O2 Flow Rate FiO2 04/11/19 10:30 119 121/72 04/11/19 08:00 98.2 119 18 121/72 (88) 100 04/11/19 08:00 112 04/11/19 04:00 98.2 120 19 123/66 (85) 100 04/11/19 03:24 106 04/11/19 00:00 98.2 107 20 104/75 (85) 100 04/10/19 23:26 102 04/10/19 21:06 123 104/67 04/10/19 21:00 Nasal Cannula 2.0 04/10/19 20:00 98.2 123 20 104/67 (79) 100 04/10/19 20:00 120 04/10/19 16:00 Nasal Cannula 2.0 04/10/19 16:00 98.4 115 16 105/74 (84) 100 04/10/19 15:23 116 Intake and Output 04/10/19 04/11/19 18:59 06:59 Intake Total 1570 ml 1348.93228 ml Output Total 750 ml 700 ml Balance 820 ml 648.67921 ml Free Water 250 ml 50 ml IV Total 600 ml 578.98998 ml Tube Feeding 720 ml 720 ml Output Urine Total 750 ml 700 ml # Voids 3 # Bowel Movements 4 1 Height (Feet): 5 Height (Inches): 7.00 Weight (Pounds): 150 General Appearance: no apparent distress Cardiovascular: tachycardia Respiratory/Chest: decreased breath sounds Abdomen: distended Objective no change Janes Barros MD Apr 11, 2019 12:12
--- NOTE | 2019-04-11 15:17 | Surgery Progress Note ---
Surgery Progress Note Subjective Additional Comments no acute events. exam unchanged. micro noted. patient poor prognosis Objective Last 24 Hour Vital Signs Date Time Temp Pulse Resp B/P (MAP) Pulse Ox O2 Delivery O2 Flow Rate FiO2 04/11/19 12:00 89 04/11/19 12:00 98.2 90 20 106/69 (81) 100 04/11/19 10:30 119 121/72 04/11/19 09:00 Nasal Cannula 2.0 04/11/19 08:00 98.2 119 18 121/72 (88) 100 04/11/19 08:00 112 04/11/19 04:00 98.2 120 19 123/66 (85) 100 04/11/19 03:24 106 04/11/19 00:00 98.2 107 20 104/75 (85) 100 04/10/19 23:26 102 04/10/19 21:06 123 104/67 04/10/19 21:00 Nasal Cannula 2.0 04/10/19 20:00 98.2 123 20 104/67 (79) 100 04/10/19 20:00 120 04/10/19 16:00 Nasal Cannula 2.0 04/10/19 16:00 98.4 115 16 105/74 (84) 100 04/10/19 15:23 116 I&O Intake and Output 04/10/19 04/11/19 19:00 07:00 Intake Total 1520 ml 1348.41102 ml Output Total 750 ml 700 ml Balance 770 ml 648.94791 ml Free Water 200 ml 50 ml IV Total 600 ml 578.70887 ml Tube Feeding 720 ml 720 ml Output Urine Total 750 ml 700 ml # Voids 3 # Bowel Movements 4 1 Dressing: other Wound: other Drains: other Cardiovascular: RSR Respiratory: decreased breath sounds Abdomen: soft, present bowel sounds, non-distended Extremities: no tenderness, no cyanosis Plan Problems: (1) Acute prerenal azotemia (2) Weakness generalized (3) Schizoaffective disorder (4) Acute hypernatremia (5) Dehydration (6) Seizure disorder (7) Sepsis Assessment & Plan: febrile, tachycardia, leukocytosis etiology unknown exam without significant pathology cultures negative thus far cxr okay ct noted No evidence of bowel obstruction. Liquefied stool in the colon and mild distention of the rectum. Correlate for diarrhea and gastroenteritis. 1 cm left adrenal mass probably adenoma. MRI evaluation may be of benefit. Gastrostomy. -trend labs venous duplex studies negative overall labs and fever curve improving on abx will follow with recs thank you (8) Anoxic brain injury (9) Encephalopathy due to metabolic factor or toxin (10) Acute metabolic encephalopathy (11) Acute renal failure (12) Hypercalcemia (13) Diarrhea (14) SBO (small bowel obstruction) Assessment & Plan: CT with Ingested contrast is traversed only a short distance into the small bowel. There is diffuse mild dilatation of the proximal to mid small bowel, collapsed distal small bowel loops. Uncertain point of transition although probably in the lower mid abdomen/upper pelvis. There is only minimal forward transit of contrast There is mild distention of the distal sigmoid and rectum by what appears to be fluid contents. No downstream obstructive lesion demonstrated. There is colonic diverticulosis. The appendix is normal. No free or loculated intraperitoneal gas or fluid is evident. There is edema of the presacral fat. There are surgical clips in the anterior gastric wall. There is a gastrostomy in appropriate position in the gastric body. The distal esophagus and duodenum are unremarkable. Lack of IV contrast limits assessment of the solid organs. Liver, gallbladder, bile ducts, pancreas, spleen, adrenals are unremarkable. 1 cm exophytic cyst comes off of the pole region of the left kidney, as well as a smaller exophytic subcentimeter low-attenuation lesion which is too small to characterize. There is also a very subtle 2 cm fluid attenuation cyst coming off of the lower pole. The right kidney is unremarkable. No pelvic mass or adenopathy. follow up KUB without pathology now with loose stools c diff negative appreciate GI input okay for tube feeds as above thank you (15) Anemia (16) Dysphagia (17) Feeding by G-tube Sean Thornton Apr 11, 2019 15:17
[2019-04-11 16:00] VITALS: BP 100/67
[2019-04-11 20:00] VITALS: BP 99/67
--- NOTE | 2019-04-11 20:39 | General Progress Note ---
Assessment/Plan Problem List: (1) Schizoaffective disorder ICD Codes: F25.9 - Schizoaffective disorder, unspecified SNOMED: 41383635 (2) Seizure disorder ICD Codes: G40.909 - Epilepsy, unspecified, not intractable, without status epilepticus SNOMED: 093386260 (3) Dehydration ICD Codes: E86.0 - Dehydration SNOMED: 93690675, 228811970 (4) Sepsis ICD Codes: A41.9 - Sepsis, unspecified organism SNOMED: 90874985, 800953558 Qualifiers: Qualified Codes: A41.9 - Sepsis, unspecified organism (5) Acute metabolic encephalopathy ICD Codes: G93.41 - Metabolic encephalopathy SNOMED: 85308867, 133941802 Status: progressing, not improved, unchanged Assessment/Plan: intermittent fever sepsis abx per id no seizure today reviewed chart and labs psych pt Subjective ROS Limited/Unobtainable: Yes Allergies: Coded Allergies: No Known Allergies (Unverified , 08/20/18) Objective Last 24 Hour Vital Signs Date Time Temp Pulse Resp B/P (MAP) Pulse Ox O2 Delivery O2 Flow Rate FiO2 04/11/19 16:00 103 04/11/19 16:00 98.2 105 20 100/67 (78) 100 04/11/19 12:00 89 04/11/19 12:00 98.2 90 20 106/69 (81) 100 04/11/19 10:30 119 121/72 04/11/19 09:00 Nasal Cannula 2.0 04/11/19 08:00 98.2 119 18 121/72 (88) 100 04/11/19 08:00 112 04/11/19 04:00 98.2 120 19 123/66 (85) 100 04/11/19 03:24 106 04/11/19 00:00 98.2 107 20 104/75 (85) 100 04/10/19 23:26 102 04/10/19 21:06 123 104/67 04/10/19 21:00 Nasal Cannula 2.0 Intake and Output 04/10/19 04/11/19 19:00 07:00 Intake Total 1520 ml 1348.43514 ml Output Total 750 ml 700 ml Balance 770 ml 648.72217 ml Free Water 200 ml 50 ml IV Total 600 ml 578.16675 ml Tube Feeding 720 ml 720 ml Output Urine Total 750 ml 700 ml # Voids 3 # Bowel Movements 4 1 Height (Feet): 5 Height (Inches): 7.00 Weight (Pounds): 150 Cardiovascular: normal rate Respiratory/Chest: lungs clear Lenin Wyatt MD Apr 11, 2019 20:39
--- NOTE | 2019-04-11 22:22 | Neurology Progress Note ---
Interim History Interim History ROS Limited/Unobtainable: Yes Complaints: AMS Events: This visit was performed on April 11, [address] Jin Interim History Afebrile, tachycardic, some leukocytosis still on CBC Review of Systems Neuro Review of Systems No seizures or new neurological events Objective Physical Exam Last Vital Signs Date Time Temp Pulse Resp B/P (MAP) Pulse Ox O2 Delivery O2 Flow Rate FiO2 04/11/19 21:00 110 99/69 04/11/19 16:00 98.2 20 100 04/11/19 09:00 Nasal Cannula 2.0 04/07/19 20:37 28 General: well developed, well nourished Head: normocophalic Neck: other EENT: benign, other Neurologic Exam Mental Status: awake, other Speech: other Language: other Cranial Nerve II: fundus normal, visual roberts, no papilledema, other Cranial Nerves III, IV, : PERRLA, EOMI, other Cranial Nerve V: other Cranial Nerve VII: other Cranial Nerve VIII: other Cranial Nerve IX: other Cranial Nerve X: other Cranial Nerve XI: other Cranial Nerve XII: other Motor System: other Sensory: other Coordination: other - Patient has tracheostomy scar at throat, is tracking intermittently with his eyes, he doesn't follow commands, has rigid tone and spasticity in all extremities and triple flexes in LEs bilaterally with mild decerebrate posturing in UEs on noxious stim. Deep Tendon Reflexes: 1+ bicep (L), 1+ bicep (R), 1+ tricep (L), 1+ tricep (R) , 1+ brachioradialis (L), 1+ brachioradialis (R), 1+ knee (L), 1+ knee (R), 1+ ankle (L), 1+ ankle (R) Reflexes: flexor plantar (L), flexor plantar (R); extensor plantar (L), extensor plantar (R) Objective Patient has tracheostomy scar at throat, is tracking intermittently with his eyes, he doesn't follow commands, has rigid tone and spasticity in all extremities and triple flexes in LEs bilaterally with mild decerebrate posturing in UEs on noxious stim. He has nystagmus on gaze at rest bilaterally - He is much more alert still with fever now. Impression/Recommendations Problems: (1) Seizure disorder (2) Anoxic brain injury Assessment & Plan: Central fevers probable but no explanation for leukocytosis. No indication or likelihood of meningitis- no need for LP at this time. MRI was negative for any acute events. (3) Sepsis (4) Acute hypernatremia (5) Dehydration (6) Encephalopathy due to metabolic factor or toxin (7) Acute metabolic encephalopathy (8) Weakness generalized (9) Schizoaffective disorder (10) Acute prerenal azotemia (11) Acute renal failure (12) Hypercalcemia (13) Diarrhea (14) SBO (small bowel obstruction) (15) Anemia (16) Dysphagia (17) Feeding by G-tube Status: stable, unchanged Diagnostic Impression Central Fevers secondary to severe cerebral dysfunction are a possibility but do not explain his leukocytosis. No apparent focal or generalized seizure activity at this time or seen on EEG. Recommendations Q4 Hour obs Na 135-145 = water flushes to PEG feeding schedule Telemetry monitoring Maintain normothermia with Ibuprofen Abx as per ID- currently on flagyl Please consider NS instead of D5 IV fluid Maintain normoglycemia with ISS SBP<140 Continue Keppra 1000 mg BID - Ativan 1mg PRN for seizure Replete/ Replace lytes Cultures Negative Chey Long N.P. Apr 11, 2019 22:22
[2019-04-12] VITALS: BP 104/73
[2019-04-12] MEDS: Acetaminophen 650mg/20.3ml GT PRN (01:25)
[2019-04-12 04:00] VITALS: BP 105/71
[2019-04-12 04:54] LABS: BASOPHILS % (AUTO) 0.8 % (0.0-2.0); EOSINOPHILS % (AUTO) 7.1 % (0.0-3.0); HEMATOCRIT 29.6 % (42.0-52.0); HEMOGLOBIN 9.9 G/DL (14.2-18.0); MEAN CORPUSCULAR VOLUME 87 FL (80-99); MONOCYTES % (AUTO) 8.2 % (1.0-10.0); NEUTROPHILS % (AUTO) 59.9 % (45.0-75.0); PLATELET COUNT 500 K/UL (150-450); RED CELL DISTRIBUTION WIDTH 12.2 % (11.6-14.8); WHITE BLOOD COUNT 8.6 K/UL (4.8-10.8)
[2019-04-12 05:20] LABS: ALANINE AMINOTRANSFERASE 48 U/L (12-78); ALBUMIN 2.6 G/DL (3.4-5.0); ALBUMIN/GLOBULIN RATIO 0.7 (1.0-2.7); ALKALINE PHOSPHATASE 72 U/L (46-116); ANION GAP 10 mmol/L (5-15); ASPARTATE AMINO TRANSFERASE 25 U/L (15-37); BILIRUBIN,TOTAL 0.1 MG/DL (0.2-1.0); BLOOD UREA NITROGEN 18 mg/dL (7-18); CALCIUM 9.6 MG/DL (8.5-10.1); CARBON DIOXIDE 27 MMOL/L (21-32); CHLORIDE 102 MMOL/L (98-107); CREATININE 0.5 MG/DL (0.55-1.30); SODIUM 139 MMOL/L (136-145)
[2019-04-12] MEDS: metroNIDAZOLE 500mg tab GT SCH ×3 (05:48→21:24)
--- NOTE | 2019-04-12 07:41 | General Progress Note ---
Assessment/Plan Problem List: (1) Anemia ICD Codes: D64.9 - Anemia, unspecified SNOMED: 832439431 (2) Dysphagia ICD Codes: R13.10 - Dysphagia, unspecified SNOMED: 76297002, 200313134 (3) Feeding by G-tube ICD Codes: Z93.1 - Gastrostomy status SNOMED: 332805604, 493875145, 813841759 (4) Anoxic brain injury ICD Codes: G93.1 - Anoxic brain damage, not elsewhere classified SNOMED: 845925231 (5) Seizure disorder ICD Codes: G40.909 - Epilepsy, unspecified, not intractable, without status epilepticus SNOMED: 073302004 (6) Schizoaffective disorder ICD Codes: F25.9 - Schizoaffective disorder, unspecified SNOMED: 16310715 Status: progressing, not improved, unchanged Assessment/Plan: no SBO per X ray and exam C. difficile negative GTF as tolerated to 60 cc Imodium as needed PPI Electrolyte correction surgical input appreciated repeat labs in am Subjective ROS Limited/Unobtainable: No Allergies: Coded Allergies: No Known Allergies (Unverified , 08/20/18) Objective Last 24 Hour Vital Signs Date Time Temp Pulse Resp B/P (MAP) Pulse Ox O2 Delivery O2 Flow Rate FiO2 04/12/19 04:00 99.1 118 18 105/71 (82) 100 04/12/19 04:00 97 04/12/19 00:00 115 04/12/19 00:00 99.0 127 18 104/73 (83) 97 04/11/19 21:00 Nasal Cannula 2.0 04/11/19 21:00 110 99/69 04/11/19 20:00 99.0 108 17 99/67 (78) 100 04/11/19 16:00 103 04/11/19 16:00 98.2 105 20 100/67 (78) 100 04/11/19 12:00 89 04/11/19 12:00 98.2 90 20 106/69 (81) 100 04/11/19 10:30 119 121/72 04/11/19 09:00 Nasal Cannula 2.0 04/11/19 08:00 98.2 119 18 121/72 (88) 100 04/11/19 08:00 112 Intake and Output 04/11/19 04/12/19 18:59 06:59 Intake Total 1570 ml 1520 ml Output Total 1000 ml Balance 1570 ml 520 ml Free Water 0 ml 200 ml IV Total 650 ml 600 ml Tube Feeding 720 ml 720 ml Blood Product 200 ml Output Urine Total 1000 ml # Bowel Movements 3 Laboratory Tests 04/12/19 03:10: White Blood Count 8.6, Red Blood Count 3.40L, Hemoglobin 9.9L, Hematocrit 29.6L , Mean Corpuscular Volume 87, Mean Corpuscular Hemoglobin 29.2, Mean Corpuscular Hemoglobin Concent 33.6, Red Cell Distribution Width 12.2, Platelet Count 500H, Mean Platelet Volume 6.8, Neutrophils (%) (Auto) 59.9, Lymphocytes ( %) (Auto) 24.0, Monocytes (%) (Auto) 8.2, Eosinophils (%) (Auto) 7.1H, Basophils (%) (Auto) 0.8, Sodium Level 139, Potassium Level 4.0, Chloride Level 102, Carbon Dioxide Level 27, Anion Gap 10, Blood Urea Nitrogen 18, Creatinine 0.5L, Estimat Glomerular Filtration Rate > 60, Glucose Level 131H, Calcium Level 9.6, Phosphorus Level 4.0, Magnesium Level 1.6L, Total Bilirubin 0.1L, Aspartate Amino Transf (AST/SGOT) 25, Alanine Aminotransferase (ALT/SGPT) 48, Alkaline Phosphatase 72, Total Protein 6.5, Albumin 2.6L, Globulin 3.9, Albumin/ Globulin Ratio 0.7L Height (Feet): 5 Height (Inches): 7.00 Weight (Pounds): 150 General Appearance: no apparent distress EENT: normal ENT inspection Neck: supple Cardiovascular: normal rate Respiratory/Chest: decreased breath sounds Abdomen: normal bowel sounds, non tender, soft Extremities: non-tender Ruddy Ospina MD Apr 12, 2019 07:41
[2019-04-12 08:00] VITALS: BP 101/75
[2019-04-12] MEDS: levETIRAcetam 500mg/5ml Liquid ORAL SCH ×2 (08:43→21:30)
--- NOTE | 2019-04-12 10:58 | Infectious Diseases Prog Note ---
Assessment/Plan Assessment/Plan antibiotics : flagyl A 1. gastroenteritis 2. hypertension 3. seizures 4. leucocytosis improving P 1. continue flagyl 2. will follow up cultures Subjective ROS Limited/Unobtainable: Yes Allergies: Coded Allergies: No Known Allergies (Unverified , 08/20/18) Objective Vital Signs Last 24 Hour Vital Signs Date Time Temp Pulse Resp B/P (MAP) Pulse Ox O2 Delivery O2 Flow Rate FiO2 04/12/19 08:44 110 101/75 04/12/19 08:00 98.9 119 20 101/75 (84) 100 04/12/19 08:00 109 04/12/19 04:00 99.1 118 18 105/71 (82) 100 04/12/19 04:00 97 04/12/19 00:00 115 04/12/19 00:00 99.0 127 18 104/73 (83) 97 04/11/19 21:00 Nasal Cannula 2.0 04/11/19 21:00 110 99/69 04/11/19 20:00 99.0 108 17 99/67 (78) 100 04/11/19 16:00 103 04/11/19 16:00 98.2 105 20 100/67 (78) 100 04/11/19 12:00 89 04/11/19 12:00 98.2 90 20 106/69 (81) 100 Height (Feet): 5 Height (Inches): 7.00 Weight (Pounds): 150 Respiratory/Chest: lungs clear Cardiovascular: normal rate, regular rhythm, no gallop/murmur Abdomen: soft, non tender, other - GT Extremities: no edema Laboratory Tests Test 04/12/19 03:10 White Blood Count 8.6 K/UL (4.8-10.8) Red Blood Count 3.40 M/UL (4.70-6.10) L Hemoglobin 9.9 G/DL (14.2-18.0) L Hematocrit 29.6 % (42.0-52.0) L Mean Corpuscular Volume 87 FL (80-99) Mean Corpuscular Hemoglobin 29.2 PG (27.0-31.0) Mean Corpuscular Hemoglobin Concent 33.6 G/DL (32.0-36.0) Red Cell Distribution Width 12.2 % (11.6-14.8) Platelet Count 500 K/UL (150-450) H Mean Platelet Volume 6.8 FL (6.5-10.1) Neutrophils (%) (Auto) 59.9 % (45.0-75.0) Lymphocytes (%) (Auto) 24.0 % (20.0-45.0) Monocytes (%) (Auto) 8.2 % (1.0-10.0) Eosinophils (%) (Auto) 7.1 % (0.0-3.0) H Basophils (%) (Auto) 0.8 % (0.0-2.0) Sodium Level 139 MMOL/L (136-145) Potassium Level 4.0 MMOL/L (3.5-5.1) Chloride Level 102 MMOL/L (98-107) Carbon Dioxide Level 27 MMOL/L (21-32) Anion Gap 10 mmol/L (5-15) Blood Urea Nitrogen 18 mg/dL (7-18) Creatinine 0.5 MG/DL (0.55-1.30) L Estimat Glomerular Filtration Rate > 60 mL/min (>60) Glucose Level 131 MG/DL (74-106) H Calcium Level 9.6 MG/DL (8.5-10.1) Phosphorus Level 4.0 MG/DL (2.5-4.9) Magnesium Level 1.6 MG/DL (1.8-2.4) L Total Bilirubin 0.1 MG/DL (0.2-1.0) L Aspartate Amino Transf (AST/SGOT) 25 U/L (15-37) Alanine Aminotransferase (ALT/SGPT) 48 U/L (12-78) Alkaline Phosphatase 72 U/L (46-116) Total Protein 6.5 G/DL (6.4-8.2) Albumin 2.6 G/DL (3.4-5.0) L Globulin 3.9 g/dL Albumin/Globulin Ratio 0.7 (1.0-2.7) L Current Medications Medications (Trade) Dose Ordered Sig/Yohannes Route PRN Reason Start Time Stop Time Status Last Admin Dose Admin Acetaminophen (Tylenol) 650 mg Q6H PRN GT Mild Pain/Temp > 100.5 04/05/19 03:00 04/20/19 02:59 04/12/19 01:25 Dextrose 1,000 ml @ 50 mls/hr Q20H IV 04/09/19 10:30 05/08/19 10:29 04/11/19 21:47 Ibuprofen (Children's Advil) 200 mg Q6H PRN GT fever 04/07/19 10:45 05/07/19 10:44 Lansoprazole (Prevacid) 30 mg DAILY GT 04/05/19 09:00 04/26/19 15:14 04/12/19 08:43 Levetiracetam (Keppra) 1,000 mg Q12HR ORAL 04/05/19 09:00 04/20/19 08:59 04/12/19 08:43 Loperamide HCl (Imodium) 2 mg Q6H PRN GT Diarrhea 04/04/19 21:30 05/04/19 21:29 04/11/19 10:29 Magnesium Sulfate 100 ml @ 100 mls/hr Q1H IVPB 04/12/19 10:30 04/12/19 14:29 04/12/19 10:48 Metoprolol Tartrate (Lopressor) 100 mg EVERY 12 HOURS GT 04/06/19 21:00 04/26/19 20:59 04/11/19 10:30 Metronidazole (Flagyl) 500 mg Q8HR GT 04/06/19 14:00 04/13/19 13:59 04/12/19 05:48 Potassium Chloride (K-Dur) 20 meq TWICE A DAY GT 04/09/19 10:30 05/09/19 10:29 04/12/19 08:44 Caleb Sweeney MD Apr 12, 2019 10:58
[2019-04-12 12:00] VITALS: BP 118/84
--- NOTE | 2019-04-12 14:22 | Surgery Progress Note ---
Surgery Progress Note Subjective Additional Comments no acute events. low grade fevers tachycardia leukocytosis improved. Objective Last 24 Hour Vital Signs Date Time Temp Pulse Resp B/P (MAP) Pulse Ox O2 Delivery O2 Flow Rate FiO2 04/12/19 12:00 119 04/12/19 12:00 99.0 122 17 118/84 (95) 100 04/12/19 09:00 Nasal Cannula 2.0 04/12/19 08:44 110 101/75 04/12/19 08:00 98.9 119 20 101/75 (84) 100 04/12/19 08:00 109 04/12/19 04:00 99.1 118 18 105/71 (82) 100 04/12/19 04:00 97 04/12/19 00:00 115 04/12/19 00:00 99.0 127 18 104/73 (83) 97 04/11/19 21:00 Nasal Cannula 2.0 04/11/19 21:00 110 99/69 04/11/19 20:00 99.0 108 17 99/67 (78) 100 04/11/19 16:00 103 04/11/19 16:00 98.2 105 20 100/67 (78) 100 I&O Intake and Output 04/11/19 04/12/19 19:00 07:00 Intake Total 1570 ml 1470 ml Output Total 1000 ml Balance 1570 ml 470 ml Free Water 0 ml 200 ml IV Total 650 ml 550 ml Tube Feeding 720 ml 720 ml Blood Product 200 ml Output Urine Total 1000 ml # Bowel Movements 3 Dressing: saturated Wound: other Drains: other Cardiovascular: RSR Respiratory: decreased breath sounds Abdomen: soft, present bowel sounds, non-distended Extremities: no tenderness, no cyanosis Laboratory Tests Test 04/12/19 03:10 White Blood Count 8.6 K/UL (4.8-10.8) Red Blood Count 3.40 M/UL (4.70-6.10) L Hemoglobin 9.9 G/DL (14.2-18.0) L Hematocrit 29.6 % (42.0-52.0) L Mean Corpuscular Volume 87 FL (80-99) Mean Corpuscular Hemoglobin 29.2 PG (27.0-31.0) Mean Corpuscular Hemoglobin Concent 33.6 G/DL (32.0-36.0) Red Cell Distribution Width 12.2 % (11.6-14.8) Platelet Count 500 K/UL (150-450) H Mean Platelet Volume 6.8 FL (6.5-10.1) Neutrophils (%) (Auto) 59.9 % (45.0-75.0) Lymphocytes (%) (Auto) 24.0 % (20.0-45.0) Monocytes (%) (Auto) 8.2 % (1.0-10.0) Eosinophils (%) (Auto) 7.1 % (0.0-3.0) H Basophils (%) (Auto) 0.8 % (0.0-2.0) Sodium Level 139 MMOL/L (136-145) Potassium Level 4.0 MMOL/L (3.5-5.1) Chloride Level 102 MMOL/L (98-107) Carbon Dioxide Level 27 MMOL/L (21-32) Anion Gap 10 mmol/L (5-15) Blood Urea Nitrogen 18 mg/dL (7-18) Creatinine 0.5 MG/DL (0.55-1.30) L Estimat Glomerular Filtration Rate > 60 mL/min (>60) Glucose Level 131 MG/DL (74-106) H Calcium Level 9.6 MG/DL (8.5-10.1) Phosphorus Level 4.0 MG/DL (2.5-4.9) Magnesium Level 1.6 MG/DL (1.8-2.4) L Total Bilirubin 0.1 MG/DL (0.2-1.0) L Aspartate Amino Transf (AST/SGOT) 25 U/L (15-37) Alanine Aminotransferase (ALT/SGPT) 48 U/L (12-78) Alkaline Phosphatase 72 U/L (46-116) Total Protein 6.5 G/DL (6.4-8.2) Albumin 2.6 G/DL (3.4-5.0) L Globulin 3.9 g/dL Albumin/Globulin Ratio 0.7 (1.0-2.7) L Plan Problems: (1) Acute prerenal azotemia (2) Weakness generalized (3) Schizoaffective disorder (4) Acute hypernatremia (5) Dehydration (6) Seizure disorder (7) Sepsis Assessment & Plan: febrile, tachycardia, leukocytosis etiology unknown exam without significant pathology cultures negative thus far cxr okay ct noted No evidence of bowel obstruction. Liquefied stool in the colon and mild distention of the rectum. Correlate for diarrhea and gastroenteritis. 1 cm left adrenal mass probably adenoma. MRI evaluation may be of benefit. Gastrostomy. -trend labs venous duplex studies negative overall labs and fever curve improving on abx will follow with recs thank you (8) Anoxic brain injury (9) Encephalopathy due to metabolic factor or toxin (10) Acute metabolic encephalopathy (11) Acute renal failure (12) Hypercalcemia (13) Diarrhea (14) SBO (small bowel obstruction) Assessment & Plan: CT with Ingested contrast is traversed only a short distance into the small bowel. There is diffuse mild dilatation of the proximal to mid small bowel, collapsed distal small bowel loops. Uncertain point of transition although probably in the lower mid abdomen/upper pelvis. There is only minimal forward transit of contrast There is mild distention of the distal sigmoid and rectum by what appears to be fluid contents. No downstream obstructive lesion demonstrated. There is colonic diverticulosis. The appendix is normal. No free or loculated intraperitoneal gas or fluid is evident. There is edema of the presacral fat. There are surgical clips in the anterior gastric wall. There is a gastrostomy in appropriate position in the gastric body. The distal esophagus and duodenum are unremarkable. Lack of IV contrast limits assessment of the solid organs. Liver, gallbladder, bile ducts, pancreas, spleen, adrenals are unremarkable. 1 cm exophytic cyst comes off of the pole region of the left kidney, as well as a smaller exophytic subcentimeter low-attenuation lesion which is too small to characterize. There is also a very subtle 2 cm fluid attenuation cyst coming off of the lower pole. The right kidney is unremarkable. No pelvic mass or adenopathy. follow up KUB without pathology now with loose stools c diff negative appreciate GI input okay for tube feeds as above thank you (15) Anemia (16) Dysphagia (17) Feeding by G-tube Sean Thornton Apr 12, 2019 14:22
--- NOTE | 2019-04-12 15:22 | Nephrology Progress Note ---
Assessment/Plan Problem List: (1) Acute renal failure (2) Acute prerenal azotemia Assessment: dehydration (3) Dehydration (4) Seizure disorder (5) Anoxic brain injury (6) Sepsis (7) Hypercalcemia Assessment Renal failure: Dehydration Hypernatremia, Free water deficit Sepsis Acute metabolic encephalopathy PEG Sz disorder HTN Plan D5W for high Na Phos , K , Lytes : adjustments lowering Cr One dose Aredia for high Ca- Calcium now in range- IV adjusted. K and Phos and Mag as needed monitor lytes GT feeding NS IV Fluids Coreg GT change to lopressor monitor electrolytes per orders Subjective ROS Limited/Unobtainable: Yes Objective Objective Last 24 Hour Vital Signs Date Time Temp Pulse Resp B/P (MAP) Pulse Ox O2 Delivery O2 Flow Rate FiO2 04/12/19 12:00 119 04/12/19 12:00 99.0 122 17 118/84 (95) 100 04/12/19 09:00 Nasal Cannula 2.0 04/12/19 08:44 110 101/75 04/12/19 08:00 98.9 119 20 101/75 (84) 100 04/12/19 08:00 109 04/12/19 04:00 99.1 118 18 105/71 (82) 100 04/12/19 04:00 97 04/12/19 00:00 115 04/12/19 00:00 99.0 127 18 104/73 (83) 97 04/11/19 21:00 Nasal Cannula 2.0 04/11/19 21:00 110 99/69 04/11/19 20:00 99.0 108 17 99/67 (78) 100 04/11/19 16:00 103 04/11/19 16:00 98.2 105 20 100/67 (78) 100 Intake and Output 04/11/19 04/12/19 19:00 07:00 Intake Total 1570 ml 1470 ml Output Total 1000 ml Balance 1570 ml 470 ml Free Water 0 ml 200 ml IV Total 650 ml 550 ml Tube Feeding 720 ml 720 ml Blood Product 200 ml Output Urine Total 1000 ml # Bowel Movements 3 Laboratory Tests 04/12/19 03:10: White Blood Count 8.6, Red Blood Count 3.40L, Hemoglobin 9.9L, Hematocrit 29.6L , Mean Corpuscular Volume 87, Mean Corpuscular Hemoglobin 29.2, Mean Corpuscular Hemoglobin Concent 33.6, Red Cell Distribution Width 12.2, Platelet Count 500H, Mean Platelet Volume 6.8, Neutrophils (%) (Auto) 59.9, Lymphocytes ( %) (Auto) 24.0, Monocytes (%) (Auto) 8.2, Eosinophils (%) (Auto) 7.1H, Basophils (%) (Auto) 0.8, Sodium Level 139, Potassium Level 4.0, Chloride Level 102, Carbon Dioxide Level 27, Anion Gap 10, Blood Urea Nitrogen 18, Creatinine 0.5L, Estimat Glomerular Filtration Rate > 60, Glucose Level 131H, Calcium Level 9.6, Phosphorus Level 4.0, Magnesium Level 1.6L, Total Bilirubin 0.1L, Aspartate Amino Transf (AST/SGOT) 25, Alanine Aminotransferase (ALT/SGPT) 48, Alkaline Phosphatase 72, Total Protein 6.5, Albumin 2.6L, Globulin 3.9, Albumin/ Globulin Ratio 0.7L Height (Feet): 5 Height (Inches): 7.00 Weight (Pounds): 150 General Appearance: no apparent distress, lethargic Cardiovascular: tachycardia Respiratory/Chest: decreased breath sounds Abdomen: distended Objective no change Janes Barros MD Apr 12, 2019 15:22
[2019-04-12 16:00] VITALS: BP 117/79
--- NOTE | 2019-04-12 17:10 | Cardiac Electrophysiology PN ---
Assessment/Plan Assessment/Plan 1. Sinus tachycardia due to fever and dehydration. On Metoprolol 100 bid. EF 60%. 2. Hypertension. On Metoprolol 100 bid better 3. Sepsis, on IV antibiotic 4. Dysphagia, status post PEG 5. Anoxic brain injury and seizures. MRI brain negative for any acute findings. On Keppra 6. Acute renal failure and dehydration, resolved Cr 0.7 7. Possible SBO by CT abdomen. Resolved. FU Dr Ospina. STONEY RN Subjective Subjective Nonverbal in sinus . On nasal cannula. No events. Objective Last 24 Hour Vital Signs Date Time Temp Pulse Resp B/P (MAP) Pulse Ox O2 Delivery O2 Flow Rate FiO2 04/12/19 16:00 110 04/12/19 12:00 119 04/12/19 12:00 99.0 122 17 118/84 (95) 100 04/12/19 09:00 Nasal Cannula 2.0 04/12/19 08:44 110 101/75 04/12/19 08:00 98.9 119 20 101/75 (84) 100 04/12/19 08:00 109 04/12/19 04:00 99.1 118 18 105/71 (82) 100 04/12/19 04:00 97 04/12/19 00:00 115 04/12/19 00:00 99.0 127 18 104/73 (83) 97 04/11/19 21:00 Nasal Cannula 2.0 04/11/19 21:00 110 99/69 04/11/19 20:00 99.0 108 17 99/67 (78) 100 Intake and Output 04/11/19 04/12/19 19:00 07:00 Intake Total 1570 ml 1520 ml Output Total 1000 ml Balance 1570 ml 520 ml Free Water 0 ml 200 ml IV Total 650 ml 600 ml Tube Feeding 720 ml 720 ml Blood Product 200 ml Output Urine Total 1000 ml # Bowel Movements 3 Laboratory Tests Test 04/12/19 03:10 White Blood Count 8.6 K/UL (4.8-10.8) Red Blood Count 3.40 M/UL (4.70-6.10) L Hemoglobin 9.9 G/DL (14.2-18.0) L Hematocrit 29.6 % (42.0-52.0) L Mean Corpuscular Volume 87 FL (80-99) Mean Corpuscular Hemoglobin 29.2 PG (27.0-31.0) Mean Corpuscular Hemoglobin Concent 33.6 G/DL (32.0-36.0) Red Cell Distribution Width 12.2 % (11.6-14.8) Platelet Count 500 K/UL (150-450) H Mean Platelet Volume 6.8 FL (6.5-10.1) Neutrophils (%) (Auto) 59.9 % (45.0-75.0) Lymphocytes (%) (Auto) 24.0 % (20.0-45.0) Monocytes (%) (Auto) 8.2 % (1.0-10.0) Eosinophils (%) (Auto) 7.1 % (0.0-3.0) H Basophils (%) (Auto) 0.8 % (0.0-2.0) Sodium Level 139 MMOL/L (136-145) Potassium Level 4.0 MMOL/L (3.5-5.1) Chloride Level 102 MMOL/L (98-107) Carbon Dioxide Level 27 MMOL/L (21-32) Anion Gap 10 mmol/L (5-15) Blood Urea Nitrogen 18 mg/dL (7-18) Creatinine 0.5 MG/DL (0.55-1.30) L Estimat Glomerular Filtration Rate > 60 mL/min (>60) Glucose Level 131 MG/DL (74-106) H Calcium Level 9.6 MG/DL (8.5-10.1) Phosphorus Level 4.0 MG/DL (2.5-4.9) Magnesium Level 1.6 MG/DL (1.8-2.4) L Total Bilirubin 0.1 MG/DL (0.2-1.0) L Aspartate Amino Transf (AST/SGOT) 25 U/L (15-37) Alanine Aminotransferase (ALT/SGPT) 48 U/L (12-78) Alkaline Phosphatase 72 U/L (46-116) Total Protein 6.5 G/DL (6.4-8.2) Albumin 2.6 G/DL (3.4-5.0) L Globulin 3.9 g/dL Albumin/Globulin Ratio 0.7 (1.0-2.7) L Objective HEAD AND NECK: No JVD. Old tracheostomy site closed. LUNGS: Coarse rhonchi. CARDIOVASCULAR: Tachy S1 and S2 with no gallop. ABDOMEN: Soft, status post G-tube. EXTREMITIES: No pitting edema. Jim Manjarrez MD Apr 12, 2019 17:10
[2019-04-12 20:00] VITALS: BP 117/79
--- NOTE | 2019-04-12 21:25 | General Progress Note ---
Assessment/Plan Problem List: (1) Schizoaffective disorder ICD Codes: F25.9 - Schizoaffective disorder, unspecified SNOMED: 23299512 (2) Seizure disorder ICD Codes: G40.909 - Epilepsy, unspecified, not intractable, without status epilepticus SNOMED: 929522017 (3) Dehydration ICD Codes: E86.0 - Dehydration SNOMED: 03993454, 774883951 (4) Sepsis ICD Codes: A41.9 - Sepsis, unspecified organism SNOMED: 65176510, 916401860 Qualifiers: Qualified Codes: A41.9 - Sepsis, unspecified organism (5) Acute metabolic encephalopathy ICD Codes: G93.41 - Metabolic encephalopathy SNOMED: 16704767, 322035807 Status: progressing, not improved, unchanged Assessment/Plan: encephalopathy afebrile today intermittent fever sepsis abx per id no seizure today Subjective ROS Limited/Unobtainable: Yes Allergies: Coded Allergies: No Known Allergies (Unverified , 08/20/18) Objective Last 24 Hour Vital Signs Date Time Temp Pulse Resp B/P (MAP) Pulse Ox O2 Delivery O2 Flow Rate FiO2 04/12/19 16:00 110 04/12/19 16:00 98.2 120 18 117/79 (92) 100 04/12/19 12:00 119 04/12/19 12:00 99.0 122 17 118/84 (95) 100 04/12/19 09:00 Nasal Cannula 2.0 04/12/19 08:44 110 101/75 04/12/19 08:00 98.9 119 20 101/75 (84) 100 04/12/19 08:00 109 04/12/19 04:00 99.1 118 18 105/71 (82) 100 04/12/19 04:00 97 04/12/19 00:00 115 04/12/19 00:00 99.0 127 18 104/73 (83) 97 Intake and Output 04/11/19 04/12/19 18:59 06:59 Intake Total 1570 ml 1520 ml Output Total 1000 ml Balance 1570 ml 520 ml Free Water 0 ml 200 ml IV Total 650 ml 600 ml Tube Feeding 720 ml 720 ml Blood Product 200 ml Output Urine Total 1000 ml # Bowel Movements 3 Laboratory Tests 04/12/19 03:10: White Blood Count 8.6, Red Blood Count 3.40L, Hemoglobin 9.9L, Hematocrit 29.6L , Mean Corpuscular Volume 87, Mean Corpuscular Hemoglobin 29.2, Mean Corpuscular Hemoglobin Concent 33.6, Red Cell Distribution Width 12.2, Platelet Count 500H, Mean Platelet Volume 6.8, Neutrophils (%) (Auto) 59.9, Lymphocytes ( %) (Auto) 24.0, Monocytes (%) (Auto) 8.2, Eosinophils (%) (Auto) 7.1H, Basophils (%) (Auto) 0.8, Sodium Level 139, Potassium Level 4.0, Chloride Level 102, Carbon Dioxide Level 27, Anion Gap 10, Blood Urea Nitrogen 18, Creatinine 0.5L, Estimat Glomerular Filtration Rate > 60, Glucose Level 131H, Calcium Level 9.6, Phosphorus Level 4.0, Magnesium Level 1.6L, Total Bilirubin 0.1L, Aspartate Amino Transf (AST/SGOT) 25, Alanine Aminotransferase (ALT/SGPT) 48, Alkaline Phosphatase 72, Total Protein 6.5, Albumin 2.6L, Globulin 3.9, Albumin/ Globulin Ratio 0.7L Height (Feet): 5 Height (Inches): 7.00 Weight (Pounds): 150 Cardiovascular: normal rate Respiratory/Chest: lungs clear Lenin Wyatt MD Apr 12, 2019 21:25
--- NOTE | 2019-04-12 23:49 | Neurology Progress Note ---
Interim History Interim History ROS Limited/Unobtainable: Yes Complaints: AMS Events: This visit was performed on April 12, [address] Jin Interim History Afebrile without any clinical seizure activity and normalized WBCs Review of Systems All Systems: reviewed and negative except above Objective Physical Exam Last Vital Signs Date Time Temp Pulse Resp B/P (MAP) Pulse Ox O2 Delivery O2 Flow Rate FiO2 04/12/19 21:25 122 117/70 04/12/19 21:00 Nasal Cannula 2.0 04/12/19 20:00 99.5 24 100 04/07/19 20:37 28 Laboratory Tests Test 04/12/19 03:10 White Blood Count 8.6 K/UL (4.8-10.8) Red Blood Count 3.40 M/UL (4.70-6.10) L Hemoglobin 9.9 G/DL (14.2-18.0) L Hematocrit 29.6 % (42.0-52.0) L Mean Corpuscular Volume 87 FL (80-99) Mean Corpuscular Hemoglobin 29.2 PG (27.0-31.0) Mean Corpuscular Hemoglobin Concent 33.6 G/DL (32.0-36.0) Red Cell Distribution Width 12.2 % (11.6-14.8) Platelet Count 500 K/UL (150-450) H Mean Platelet Volume 6.8 FL (6.5-10.1) Neutrophils (%) (Auto) 59.9 % (45.0-75.0) Lymphocytes (%) (Auto) 24.0 % (20.0-45.0) Monocytes (%) (Auto) 8.2 % (1.0-10.0) Eosinophils (%) (Auto) 7.1 % (0.0-3.0) H Basophils (%) (Auto) 0.8 % (0.0-2.0) Sodium Level 139 MMOL/L (136-145) Potassium Level 4.0 MMOL/L (3.5-5.1) Chloride Level 102 MMOL/L (98-107) Carbon Dioxide Level 27 MMOL/L (21-32) Anion Gap 10 mmol/L (5-15) Blood Urea Nitrogen 18 mg/dL (7-18) Creatinine 0.5 MG/DL (0.55-1.30) L Estimat Glomerular Filtration Rate > 60 mL/min (>60) Glucose Level 131 MG/DL (74-106) H Calcium Level 9.6 MG/DL (8.5-10.1) Phosphorus Level 4.0 MG/DL (2.5-4.9) Magnesium Level 1.6 MG/DL (1.8-2.4) L Total Bilirubin 0.1 MG/DL (0.2-1.0) L Aspartate Amino Transf (AST/SGOT) 25 U/L (15-37) Alanine Aminotransferase (ALT/SGPT) 48 U/L (12-78) Alkaline Phosphatase 72 U/L (46-116) Total Protein 6.5 G/DL (6.4-8.2) Albumin 2.6 G/DL (3.4-5.0) L Globulin 3.9 g/dL Albumin/Globulin Ratio 0.7 (1.0-2.7) L General: well developed, well nourished Head: normocophalic Neck: other EENT: benign, other Neurologic Exam Mental Status: other Speech: other Language: other Cranial Nerve II: fundus normal, visual roberts, no papilledema, other Cranial Nerves III, IV, : PERRLA, EOMI, other Cranial Nerve V: other Cranial Nerve VII: other Cranial Nerve VIII: other Cranial Nerve IX: other Cranial Nerve X: other Cranial Nerve XI: other Cranial Nerve XII: other Motor System: other Sensory: other Coordination: other - Patient has tracheostomy scar at throat, is tracking intermittently with his eyes, he doesn't follow commands, has rigid tone and spasticity in all extremities and triple flexes in LEs bilaterally with mild decerebrate posturing in UEs on noxious stim. Deep Tendon Reflexes: 1+ bicep (L), 1+ bicep (R), 1+ tricep (L), 1+ tricep (R) , 1+ brachioradialis (L), 1+ brachioradialis (R), 1+ knee (L), 1+ knee (R), 1+ ankle (L), 1+ ankle (R) Reflexes: flexor plantar (L), flexor plantar (R); extensor plantar (L), extensor plantar (R) Objective Patient has tracheostomy scar at throat, is tracking intermittently with his eyes, he doesn't follow commands, has rigid tone and spasticity in all extremities and triple flexes in LEs bilaterally with mild decerebrate posturing in UEs on noxious stim. He has nystagmus on gaze at rest bilaterally - He is much more alert still with fever now. Impression/Recommendations Problems: (1) Seizure disorder (2) Anoxic brain injury Assessment & Plan: Central fevers probable but no explanation for leukocytosis. No indication or likelihood of meningitis- no need for LP at this time. MRI was negative for any acute events. (3) Sepsis (4) Acute hypernatremia (5) Dehydration (6) Encephalopathy due to metabolic factor or toxin (7) Acute metabolic encephalopathy (8) Weakness generalized (9) Schizoaffective disorder (10) Acute prerenal azotemia (11) Acute renal failure (12) Hypercalcemia (13) Diarrhea (14) SBO (small bowel obstruction) (15) Anemia (16) Dysphagia (17) Feeding by G-tube Status: doing well, stable, progressing Diagnostic Impression No apparent focal or generalized seizure activity at this time or seen on EEG. Stable neurologically for discharge at this time. Recommendations Q4 Hour obs Na 135-145 = water flushes to PEG feeding schedule Maintain normoglycemia with ISS SBP<140 Continue Keppra 1000 mg BID - Ativan 1mg PRN for seizure Replete/ Replace lytes Cultures Negative Clear for discharge from a neurological perspective. Chey Long N.P. Apr 12, 2019 23:49
[2019-04-13] VITALS: BP 103/69
[2019-04-13 04:00] VITALS: BP 108/64
[2019-04-13] MEDS: metroNIDAZOLE 500mg tab GT SCH (05:42)
[2019-04-13 08:00] VITALS: BP 104/68
[2019-04-13] MEDS: levETIRAcetam 500mg/5ml Liquid ORAL SCH (08:32)
--- NOTE | 2019-04-13 09:42 | GI Progress Note ---
Assessment/Plan Problems: (1) Feeding by G-tube ICD Codes: Z93.1 - Gastrostomy status SNOMED: 220896383, 798057515, 038435371 (2) Dysphagia ICD Codes: R13.10 - Dysphagia, unspecified SNOMED: 04455103, 787247590 (3) Anemia ICD Codes: D64.9 - Anemia, unspecified SNOMED: 516143510 (4) Diarrhea ICD Codes: R19.7 - Diarrhea, unspecified SNOMED: 82706235 (5) SBO (small bowel obstruction) ICD Codes: K56.609 - Unspecified intestinal obstruction, unspecified as to partial versus complete obstruction SNOMED: 692943553 (6) Anoxic brain injury ICD Codes: G93.1 - Anoxic brain damage, not elsewhere classified SNOMED: 154512635 (7) Dehydration ICD Codes: E86.0 - Dehydration SNOMED: 73593541, 244231483 Status: unchanged Status Narrative Discussed with Dr. Ospina. Assessment/Plan no SBO per X ray and exam C. difficile negative GTF as tolerated to 60 cc Imodium as needed PPI Electrolyte correction surgical input appreciated repeat labs in am The patient was seen and examined at bedside and all new and available data was reviewed in the patients chart. I agree with the above findings, impression and plan. (Patient seen earlier today. Signature stamp does not reflect patient encounter time.). - Ruddy Ospina MD Subjective Subjective Limited Objective Last 24 Hour Vital Signs Date Time Temp Pulse Resp B/P (MAP) Pulse Ox O2 Delivery O2 Flow Rate FiO2 04/13/19 08:58 Nasal Cannula 2.0 04/13/19 08:33 117 104/68 04/13/19 08:00 98.1 100 16 104/68 (80) 100 04/13/19 07:32 108 04/13/19 06:39 95 Room Air 21 04/13/19 04:00 110 04/13/19 04:00 98.8 102 24 108/64 (79) 100 04/13/19 00:00 99.3 101 24 103/69 (80) 100 04/13/19 00:00 102 04/12/19 21:25 122 117/70 04/12/19 21:00 Nasal Cannula 2.0 04/12/19 20:00 96 Nasal Cannula 2.0 28 04/12/19 20:00 99.5 120 24 117/79 (92) 100 04/12/19 20:00 125 04/12/19 16:00 110 04/12/19 16:00 98.2 120 18 117/79 (92) 100 04/12/19 12:00 119 04/12/19 12:00 99.0 122 17 118/84 (95) 100 Intake and Output 04/12/19 04/13/19 18:59 06:59 Intake Total 1530 ml 1370 ml Output Total 800 ml 1100 ml Balance 730 ml 270 ml Free Water 150 ml 50 ml IV Total 600 ml 600 ml Tube Feeding 780 ml 720 ml Output Urine Total 800 ml 1100 ml # Bowel Movements 1 1 Height (Feet): 5 Height (Inches): 7.00 Weight (Pounds): 148 General Appearance: WD/WN, no apparent distress Cardiovascular: normal rate Respiratory/Chest: normal breath sounds, no respiratory distress Abdominal Exam: normal bowel sounds, non tender, soft, GT site Extremities: non-tender Alvaro Ybarra NP Apr 13, 2019 09:42
[2019-04-13] MEDS ORDERED: Magnesium Oxide 400mg tab GT SCH ×2 (10:30→13:00)
--- NOTE | 2019-04-13 10:30 | Nephrology Progress Note ---
Assessment/Plan Problem List: (1) Acute renal failure (2) Acute prerenal azotemia Assessment: dehydration (3) Dehydration (4) Seizure disorder (5) Anoxic brain injury (6) Sepsis (7) Hypercalcemia Assessment Renal failure: Dehydration Hypernatremia, Free water deficit Sepsis Acute metabolic encephalopathy PEG Sz disorder HTN Plan DC IV Mag Phos , K , Lytes : adjustments as needed Cr WNL previously: One dose Aredia for high Ca- Calcium now in range- IV adjusted. K and Phos and Mag as needed monitor lytes GT feeding NS IV Fluids Coreg GT change to lopressor monitor electrolytes per orders Subjective ROS Limited/Unobtainable: Yes Objective Objective Last 24 Hour Vital Signs Date Time Temp Pulse Resp B/P (MAP) Pulse Ox O2 Delivery O2 Flow Rate FiO2 04/13/19 08:58 Nasal Cannula 2.0 04/13/19 08:33 117 104/68 04/13/19 08:00 98.1 100 16 104/68 (80) 100 04/13/19 07:32 108 04/13/19 06:39 95 Room Air 21 04/13/19 04:00 110 04/13/19 04:00 98.8 102 24 108/64 (79) 100 04/13/19 00:00 99.3 101 24 103/69 (80) 100 04/13/19 00:00 102 04/12/19 21:25 122 117/70 04/12/19 21:00 Nasal Cannula 2.0 04/12/19 20:00 96 Nasal Cannula 2.0 28 04/12/19 20:00 99.5 120 24 117/79 (92) 100 04/12/19 20:00 125 04/12/19 16:00 110 04/12/19 16:00 98.2 120 18 117/79 (92) 100 04/12/19 12:00 119 04/12/19 12:00 99.0 122 17 118/84 (95) 100 Intake and Output 04/12/19 04/13/19 18:59 06:59 Intake Total 1530 ml 1370 ml Output Total 800 ml 1100 ml Balance 730 ml 270 ml Free Water 150 ml 50 ml IV Total 600 ml 600 ml Tube Feeding 780 ml 720 ml Output Urine Total 800 ml 1100 ml # Bowel Movements 1 1 Height (Feet): 5 Height (Inches): 7.00 Weight (Pounds): 148 General Appearance: no apparent distress Cardiovascular: tachycardia Respiratory/Chest: decreased breath sounds Abdomen: distended Objective no change Janes Barros MD Apr 13, 2019 10:30
[2019-04-13 12:00] VITALS: BP 103/67
--- NOTE | 2019-04-13 12:05 | Infectious Diseases Prog Note ---
Assessment/Plan Assessment/Plan IMPRESSION: 1. Fever of unknown origin resolved 2. Leukocytosis 3. Tachycardia. 4. He has anoxic encephalopathy. 5. MRSA colonization. 6. Hypernatremia and azotemia. 7. Seizure disorder. 8. Hypertension. 9. enteritis 10. Diarrhea, c.difficile test negative RECOMMENDATION: Discontinue Flagyl , Continue Ibuprofen Maybe discharged to SNF Subjective ROS Limited/Unobtainable: Yes Constitutional: Denies: fever Gastrointestinal/Abdominal: Denies: diarrhea Allergies: Coded Allergies: No Known Allergies (Unverified , 08/20/18) Objective Vital Signs Last 24 Hour Vital Signs Date Time Temp Pulse Resp B/P (MAP) Pulse Ox O2 Delivery O2 Flow Rate FiO2 04/13/19 08:58 Nasal Cannula 2.0 04/13/19 08:33 117 104/68 04/13/19 08:00 98.1 100 16 104/68 (80) 100 04/13/19 07:32 108 04/13/19 06:39 95 Room Air 21 04/13/19 04:00 110 04/13/19 04:00 98.8 102 24 108/64 (79) 100 04/13/19 00:00 99.3 101 24 103/69 (80) 100 04/13/19 00:00 102 04/12/19 21:25 122 117/70 04/12/19 21:00 Nasal Cannula 2.0 04/12/19 20:00 96 Nasal Cannula 2.0 28 04/12/19 20:00 99.5 120 24 117/79 (92) 100 04/12/19 20:00 125 04/12/19 16:00 110 04/12/19 16:00 98.2 120 18 117/79 (92) 100 Height (Feet): 5 Height (Inches): 7.00 Weight (Pounds): 148 General Appearance: no acute distress HEENT: mucous membranes moist Respiratory/Chest: lungs clear Cardiovascular: normal rate Abdomen: soft, non tender, other - GT feeding Extremities: no edema Neurologic/Psychiatric: alert, aphasia Current Medications Medications (Trade) Dose Ordered Sig/Yohannes Route PRN Reason Start Time Stop Time Status Last Admin Dose Admin Acetaminophen (Tylenol) 650 mg Q6H PRN GT Mild Pain/Temp > 100.5 04/05/19 03:00 04/20/19 02:59 04/12/19 01:25 Ibuprofen (Children's Advil) 200 mg Q6H PRN GT fever 04/07/19 10:45 05/07/19 10:44 Lansoprazole (Prevacid) 30 mg DAILY GT 04/05/19 09:00 04/26/19 15:14 04/13/19 08:32 Levetiracetam (Keppra) 1,000 mg Q12HR ORAL 04/05/19 09:00 04/20/19 08:59 04/13/19 08:32 Loperamide HCl (Imodium) 2 mg Q6H PRN GT Diarrhea 04/04/19 21:30 05/04/19 21:29 04/11/19 10:29 Magnesium Oxide (Mag-Ox 400mg) 400 mg THREE TIMES A DAY GT 04/13/19 13:00 05/13/19 12:59 Metoprolol Tartrate (Lopressor) 100 mg EVERY 12 HOURS GT 04/12/19 21:00 05/12/19 20:59 04/13/19 08:33 Metronidazole (Flagyl) 500 mg Q8HR GT 04/06/19 14:00 04/19/19 23:59 04/13/19 05:42 Potassium Chloride (K-Dur) 20 meq TWICE A DAY GT 04/09/19 10:30 05/09/19 10:29 04/13/19 08:32 Yash Shay MD Apr 13, 2019 12:05
--- NOTE | 2019-04-13 14:52 | Surgery Progress Note ---
Surgery Progress Note Subjective Additional Comments no acute events. exam stable. afebrile now. tachy but improved. Objective Last 24 Hour Vital Signs Date Time Temp Pulse Resp B/P (MAP) Pulse Ox O2 Delivery O2 Flow Rate FiO2 04/13/19 12:00 98.4 103 20 103/67 (79) 98 04/13/19 11:40 103 04/13/19 08:58 Nasal Cannula 2.0 04/13/19 08:33 117 104/68 04/13/19 08:00 98.1 100 16 104/68 (80) 100 04/13/19 07:32 108 04/13/19 06:39 95 Room Air 21 04/13/19 04:00 110 04/13/19 04:00 98.8 102 24 108/64 (79) 100 04/13/19 00:00 99.3 101 24 103/69 (80) 100 04/13/19 00:00 102 04/12/19 21:25 122 117/70 04/12/19 21:00 Nasal Cannula 2.0 04/12/19 20:00 96 Nasal Cannula 2.0 28 04/12/19 20:00 99.5 120 24 117/79 (92) 100 04/12/19 20:00 125 04/12/19 16:00 110 04/12/19 16:00 98.2 120 18 117/79 (92) 100 I&O Intake and Output 04/12/19 04/13/19 18:59 06:59 Intake Total 1530 ml 1370 ml Output Total 800 ml 1100 ml Balance 730 ml 270 ml Free Water 150 ml 50 ml IV Total 600 ml 600 ml Tube Feeding 780 ml 720 ml Output Urine Total 800 ml 1100 ml # Bowel Movements 1 1 Dressing: dry Wound: other Drains: other Cardiovascular: RSR Respiratory: decreased breath sounds Abdomen: soft, non-tender, present bowel sounds, other, non-distended Extremities: no tenderness, no cyanosis Plan Problems: (1) Acute prerenal azotemia (2) Weakness generalized (3) Schizoaffective disorder (4) Acute hypernatremia (5) Dehydration (6) Seizure disorder (7) Sepsis Assessment & Plan: febrile, tachycardia, leukocytosis etiology unknown exam without significant pathology cultures negative thus far cxr okay ct noted No evidence of bowel obstruction. Liquefied stool in the colon and mild distention of the rectum. Correlate for diarrhea and gastroenteritis. 1 cm left adrenal mass probably adenoma. MRI evaluation may be of benefit. Gastrostomy. -trend labs venous duplex studies negative overall labs and fever curve improving on abx will follow with recs okay to d/c from surgical standpoint time of note does not reflect when patient was seen. thank you (8) Anoxic brain injury (9) Encephalopathy due to metabolic factor or toxin (10) Acute metabolic encephalopathy (11) Acute renal failure (12) Hypercalcemia (13) Diarrhea (14) SBO (small bowel obstruction) Assessment & Plan: CT with Ingested contrast is traversed only a short distance into the small bowel. There is diffuse mild dilatation of the proximal to mid small bowel, collapsed distal small bowel loops. Uncertain point of transition although probably in the lower mid abdomen/upper pelvis. There is only minimal forward transit of contrast There is mild distention of the distal sigmoid and rectum by what appears to be fluid contents. No downstream obstructive lesion demonstrated. There is colonic diverticulosis. The appendix is normal. No free or loculated intraperitoneal gas or fluid is evident. There is edema of the presacral fat. There are surgical clips in the anterior gastric wall. There is a gastrostomy in appropriate position in the gastric body. The distal esophagus and duodenum are unremarkable. Lack of IV contrast limits assessment of the solid organs. Liver, gallbladder, bile ducts, pancreas, spleen, adrenals are unremarkable. 1 cm exophytic cyst comes off of the pole region of the left kidney, as well as a smaller exophytic subcentimeter low-attenuation lesion which is too small to characterize. There is also a very subtle 2 cm fluid attenuation cyst coming off of the lower pole. The right kidney is unremarkable. No pelvic mass or adenopathy. follow up KUB without pathology now with loose stools c diff negative appreciate GI input okay for tube feeds as above thank you (15) Anemia (16) Dysphagia (17) Feeding by G-tube Sean Thornton Apr 13, 2019 14:52
--- NOTE | 2019-04-13 19:01 | Neurology Progress Note ---
Interim History Interim History ROS Limited/Unobtainable: Yes Complaints: AMS Events: This visit was performed on April 13, [address] Jin Interim History No new events - remains afebrile at this time. Objective Physical Exam Last Vital Signs Date Time Temp Pulse Resp B/P (MAP) Pulse Ox O2 Delivery O2 Flow Rate FiO2 04/13/19 12:00 98.4 103 20 103/67 (79) 98 04/13/19 08:58 Nasal Cannula 2.0 04/13/19 06:39 21 General: well developed, well nourished Head: normocophalic Neck: other EENT: benign, other Neurologic Exam Mental Status: other Speech: other Language: other Cranial Nerve II: fundus normal, visual roberts, no papilledema, other Cranial Nerves III, IV, : PERRLA, EOMI, other Cranial Nerve V: other Cranial Nerve VII: other Cranial Nerve VIII: other Cranial Nerve IX: other Cranial Nerve X: other Cranial Nerve XI: other Cranial Nerve XII: other Motor System: other Sensory: other Coordination: other - Patient has tracheostomy scar at throat, is tracking intermittently with his eyes, he doesn't follow commands, has rigid tone and spasticity in all extremities and triple flexes in LEs bilaterally with mild decerebrate posturing in UEs on noxious stim. Deep Tendon Reflexes: 1+ bicep (L), 1+ bicep (R), 1+ tricep (L), 1+ tricep (R) , 1+ brachioradialis (L), 1+ brachioradialis (R), 1+ knee (L), 1+ knee (R), 1+ ankle (L), 1+ ankle (R) Reflexes: flexor plantar (L), flexor plantar (R); extensor plantar (L), extensor plantar (R) Objective Patient has tracheostomy scar at throat, is tracking intermittently with his eyes, he doesn't follow commands, has rigid tone and spasticity in all extremities and triple flexes in LEs bilaterally with mild decerebrate posturing in UEs on noxious stim. He has nystagmus on gaze at rest bilaterally - He is much more alert still with fever now. Imaging [facility] [place] [facility] [address] [place] , [place] [id number] , fax [phone] Conner Schein, M.D. Hub [employer]utter Patient : LATANYA GOODWIN Referring Physician: Chey Long N.P. ID Number: [id number] Service Date: 03/23/19 : 1980 Report Date: 03/23/19 Gender: M Accession No.: [id number] Location: Procedure: MRI Brain no Contrast Indication: Altered mental status, seizures, history of anoxic brain injury Technique: sagittal T1 fast spin echo, axial T1 FLAIR, axial T2 FLAIR, axial T2 FS PROPELLER, axial T2* GRE, axial diffusion weighted images. ADC and exponential ADC maps generated Comparison: Head CT 08/25/2018 Findings: No abnormal areas of restricted diffusion to suggest acute infarction. There is symmetric high cortical and subcortical T2 signal and corresponding decreased T1 signal. This is most pronounced in the temporal lobes bilaterally. No significant cerebellar signal abnormality demonstrated. The vascular flow voids are preserved. There is ex vacuo dilatation of the ventricles and extra-axial CSF spaces... No evidence of acute hemorrhage. No mass effect nor midline shift. Visualized orbits and sinuses are unremarkableNo signal abnormalities corresponding to the parenchymal calcifications described on recent CT scan are demonstrated. Note that when compared to the prior exam, there is interim marked cerebral volume loss. Impression: Marked cortical and subcortical cerebral signal abnormality, consistent with stated clinical history of anoxic encephalopathy. Interim marked cerebral volume loss, since prior study of 08/25/2019, presumably related to the above. Negative for acute intracranial bleed, mass effect, or infarct Dictated By: Joel Dawkins MD Electronically Signed By: Joel Dawkins MD Signed Date/Time 03/23/19 0021 CC: Chey Long N.P.; Lenin Wyatt MD Impression/Recommendations Problems: (1) Seizure disorder (2) Anoxic brain injury Assessment & Plan: Central fevers probable but no explanation for leukocytosis. No indication or likelihood of meningitis- no need for LP at this time. MRI was negative for any acute events but showed significant evidence in the form of cortical and subcortical cerebral signal abnormality and overall cerebral volume loss/ atrophy secondary to anoxic injury coinciding with patient 's past history of suicide attempt and cardiac resuscitation. His exam is stable at this time. He is briskly alert and presumably at his baseline at this time, according to his family's description of his best level of mentation and abilities in the months prior to his admission. (3) Sepsis (4) Acute hypernatremia (5) Dehydration (6) Encephalopathy due to metabolic factor or toxin (7) Acute metabolic encephalopathy (8) Weakness generalized (9) Schizoaffective disorder (10) Acute prerenal azotemia (11) Acute renal failure (12) Hypercalcemia (13) Diarrhea (14) SBO (small bowel obstruction) (15) Anemia (16) Dysphagia (17) Feeding by G-tube Status: doing well, stable, fever - Central Fevers likely Diagnostic Impression No apparent focal or generalized seizure activity at this time or seen on EEG. Stable neurologically for discharge at this time. Recommendations Q4 Hour obs Na 135-145 = water flushes to PEG feeding schedule Maintain normoglycemia with ISS SBP<140 Continue Keppra 1000 mg BID - Ativan 1mg PRN for seizure Replete/ Replace lytes Cultures Negative Stable for discharge from a neurological perspective. Chey Long N.P. Apr 13, 2019 19:01
--- NOTE | 2019-04-14 04:30 | Progress Note ---
DATE: 04/13/2019 The patient is going to be discharged today. He is cleared by Dr. Yash Shay. Again, the patient has sepsis with intermittent fevers. He is on antibiotics. He is stable, not febrile. Vitals are stable. [facility] Refer to the Discharge Summary for details. Lenin Wyatt M.D. DR: ERICK JOB#: [id number] CC:
--- NOTE | 2019-04-14 13:36 | Discharge Summary ---
Discharge Summary Discharge Summary _ DATE OF ADMISSION: 03/21/2019 DATE OF DISCHARGE: 04/13/2019 DISCHARGED BY: Dr. Lenin Guthrie CONSULTANTS: Dr. Janes Jin [facility]SE: Patient is a 39-year-old male, who has history of seizure and anoxic brain injury. He presented from senior care for chief complaint of fever. There was no nausea, no vomiting. History was limited and was obtained from senior care notes. On evaluation at the ED, patient was febrile, temperature 101.8 F. Blood work showed leukocytosis, WBC 14. Hemoglobin and hematocrit were stable. Sodium was elevated to 154, chloride 113. BUN was elevated to 49, creatinine was normal. EKG showed sinus tachycardia. Chest x-ray did not show any acute cardiopulmonary process. He was found to be extremely dehydrated with very high sodium. Initially there was no urine output. After fluid resuscitation, he had more urine output. He was given a dose of Rocephin. Has been admitted for evaluation of sepsis and dehydration. He was given IV hydration. Patient had tachycardia, possibly due to severe dehydration. He was started on low-dose Coreg via G-tube. He was given IV antibiotics vancomycin and Zosyn. Neurologist was consulted. He was continued on Keppra 1000 mg twice daily. He was placed on seizure precautions. Cardiogram done showed ejection fraction 60%. Leukocytosis resolved. Heart rate improved with Coreg. Tachycardia resolved. Abdominal ultrasound was negative, vancomycin was discontinued. MRI of the brain was negative for acute findings. Blood work showed rising kidney functions. Vanco level was elevated. Vancomycin was placed on hold. Calcium level was elevated. He was given a dose of Aredia. Patient was ordered discharged on 03/28/2019, however, discharge was canceled as patient spiked fever of 101.3F. He was continued on vancomycin and Zosyn. CT of the abdomen and pelvis showed presence of collapsed distal small bowel loops which raised concern for small bowel obstruction. In addition, there was noted fluid in the colon which could indicate diarrheal disease. He was placed on n.p.o. KUB did not show any pathology. Surgical evaluation was done Repeat venous duplex scan did not show any acute DVT. FINAL DIAGNOSES: [] DISPOSITION: [] DISCHARGE MEDICATIONS: Refer to Discharge Medication List. DISCHARGE INSTRUCTIONS: Follow-up in a week. I have been assigned to complete a discharge summary on this account, I was not involved with the patient's management. Eden Marr NP Apr 14, 2019 13:36
--- NOTE | 2019-04-14 14:05 | Discharge Summary ---
Discharge Summary Discharge Summary _ DATE OF ADMISSION: 03/21/2019 DATE OF DISCHARGE: 04/13/2019 DISCHARGED BY: Dr. Lenin Guthrie CONSULTANTS: Dr. Janes Jin [facility] COURSE: Patient is a 39-year-old male, who has history of seizure and anoxic brain injury. He presented from long-term for chief complaint of fever. There was no nausea, no vomiting. History was limited and was obtained from long-term notes. On evaluation at the ED, patient was febrile, temperature 101.8 F. Blood work showed leukocytosis, WBC 14. Hemoglobin and hematocrit were stable. Sodium was elevated to 154, chloride 113. BUN was elevated to 49, creatinine was normal. EKG showed sinus tachycardia. Chest x-ray did not show any acute cardiopulmonary process. He was found to be extremely dehydrated with very high sodium. Initially there was no urine output. After fluid resuscitation, he had more urine output. He was given a dose of Rocephin. Has been admitted for evaluation of sepsis and dehydration. He was given IV hydration. Patient had tachycardia, possibly due to severe dehydration. He was started on low-dose Coreg via G-tube. He was given IV antibiotics vancomycin and Zosyn. Neurologist was consulted. He was continued on Keppra 1000 mg twice daily. He was placed on seizure precautions. Cardiogram done showed ejection fraction 60%. Leukocytosis resolved. Heart rate improved with Coreg. Tachycardia improved.. Abdominal ultrasound was negative, vancomycin was discontinued. Coreg was eventually switched to metoprolol. MRI of the brain was negative for acute findings. Blood work showed rising kidney functions. Vanco level was elevated. Vancomycin was placed on hold. Calcium level was elevated. He was given a dose of Aredia. Kidney function normalized. Patient was ordered discharged on 03/28/2019, however, discharge was canceled as patient spiked fever of 101.3F. He was recultured. CT of the abdomen and pelvis showed presence of collapsed distal small bowel loops which raised concern for small bowel obstruction. In addition, there was noted fluid in the colon which could indicate diarrheal disease. GI and surgeon were consulted. He was placed on n.p.o. KUB did not show any pathology. Tube feeding was restarted. Patient had diarrhea. He was started empirically on Flagyl. C. difficile antigen was negative. Flagyl was discontinued. He was started on meropenem. Laxatives and stool softeners were discontinued. He was given Imodium. Repeat CT scan did not show any evidence of bowel obstruction. No surgical intervention needed. Repeat venous duplex scan did not show any acute DVT. Cultures were negative. Antibiotic was discontinued. He continued to remain tachycardic. Metoprolol was increased to 100 mg twice daily. He was eventually discharged back to long-term. FINAL DIAGNOSES: Sepsis Fever of unknown origin, resolved Possible SBO, ruled out Seizure disorder Anoxic brain injury Dehydration Acute metabolic encephalopathy Weakness Acute prerenal azotemia Acute renal failure Hypercalcemia Diarrhea/enteritis Dysphagia with feeding via G-tube Hypomagnesemia Hypokalemia MRSA colonization Anemia Sinus tachycardia due to fever and dehydration DISPOSITION: Patient was discharged to a SNF. DISCHARGE MEDICATIONS: Refer to Discharge Medication List. I have been assigned to complete a discharge summary on this account, I was not involved with the patient's management. Eden Marr NP Apr 14, 2019 14:05
== END 2019-04-13 14:10 | DRG 720 ==
LOC: EDBD 23:22 → EMR 23:40 → 2E 03-21 01:50 → EDBEDREQ 03-21 02:13 → 4E 03-23 18:44 → 2W 04-04 21:06
DX: A41.9 Sepsis, unspecified organism (principal); G93.41 Metabolic encephalopathy; G93.1 Anoxic brain damage, not elsewhere classified; N17.9 Acute kidney failure, unspecified; R13.10 Dysphagia, unspecified; E87.0 Hyperosmolality and hypernatremia; E86.0 Dehydration; F25.9 Schizoaffective disorder, unspecified; G40.909 Epilepsy, unspecified, not intractable, without status epilepticus; F03.90 Unspecified dementia, unspecified severity, without behavioral disturbance, psychotic disturbance, mood disturbance, and anxiety; Z93.1 Gastrostomy status; I10 Essential (primary) hypertension; R19.7 Diarrhea, unspecified; E83.52 Hypercalcemia; E83.42 Hypomagnesemia; E87.6 Hypokalemia; Z22.322 Carrier or suspected carrier of Methicillin resistant Staphylococcus aureus; D64.9 Anemia, unspecified
CPT/HCPCS: 36415; 70551; 71045; 74018; 74176; 74177; 76700; 80048; 80053; 80061; 80076; 80202; 80299; 81001; 81003; 82150; 82550; 82553; 82607; 82728; 82746; 82962; 83036; 83540; 83550; 83605; 83690; 83735; 83880; 84100; 84443; 84484; 84550; 85025; 85610; 85651; 85730; 86140; 87040; 87081; 87086; 87324; 93005; 93306; 93970; 94664; 95819; 99285; J2430; J8499

== ENCOUNTER 2019-04-17 09:22 | Emergency (ER) | payer OTHER ==
[~2019-04-17] VITALS: Ht 167.6 cm; Wt 54.4 kg
[~2019-04-17 09:22] MED LIST changes: +ACETAMINOPHEN325 M1 GT; +ACETAMINOPHEN325 M1 ORAL; +ARICEPT10 MG ORAL; +BISACODYL10 M1 RC; +DOCU LIQUI50 MG/5 M1 GT; +DOCU LIQUI50 MG/5 M1 PO; +DONEPEZIL HCL10 M2 GT; +DUONEB 0.5-3(2.53 ML HHN; +FOLIC ACID1 MG GT; +FOLIC ACID1 MG ORAL; +IPRATROPIU0.2 MG/1 M HHN; +KEPPRA LIQ100 MG/1 M ORAL; +LEVETIRACE100 MG/1 M GT; +LOVENOX10 M4 SUBQ; +MILK OF MA400 MG/51 GT; +MILK OF MA400 MG/51 ORAL; +MIRALAX17 G2 GT; +MIRALAX17 G2 ORAL; +SENNA8.6 M2 PO; +SENNOSIDES8.6 MG GT; +VITAMIN B-1100 MG GT; +VITAMIN B-1100 MG ORAL; +VITAMIN B-12500 MCG GT; +VITAMIN B-12500 MCG ORAL
[2019-04-17 09:25] VITALS: BP 102/65
--- NOTE | 2019-04-17 09:25 | NUR ---
ED Nurse Note: Patient ivan from [facility] c/o fever, at time of arrival patients rectal temp is 103.0. with a heart rate of 150. Dr. Lucas aware and notified. PAtient presents with sacral redness along with a healed wound located on right thigh, patient is contracted. IV started on right hand 20 gauge. patient is non verbal, patient has a G-tube located on left upper quadrant. will continue to monitor
[2019-04-17 09:52] LABS: APPEARANCE,URINE CLEAR; BILIRUBIN, URINE NEGATIVE (NEGATIVE); GLUCOSE, URINE (UA) NEGATIVE (NEGATIVE); HEMATOCRIT 35.2 % (42.0-52.0); HEMOGLOBIN 11.8 G/DL (14.2-18.0); KETONES,URINE NEGATIVE (NEGATIVE); LEUKOCYTE ESTERASE ,URINE 1+ (NEGATIVE); MEAN CORPUSCULAR VOLUME 87 FL (80-99); NITRITE,URINE NEGATIVE (NEGATIVE); PH,URINE 5 (4.5-8.0); PLATELET COUNT 770 K/UL (150-450); PROTEIN,URINE 1+ (NEGATIVE); RED BLOOD COUNT 4.06 M/UL (4.70-6.10); RED CELL DISTRIBUTION WIDTH 12.4 % (11.6-14.8); UROBILINOGEN,URINE NORMAL MG/DL (0.0-1.0); WHITE BLOOD COUNT 18.5 K/UL (4.8-10.8)
[2019-04-17 09:57] LABS: COLOR,URINE YELLOW
[2019-04-17] MEDS ORDERED: Acetaminophen 650mg/20.3ml GT ONE (10:00)
[2019-04-17 10:02] LABS: ANION GAP 10 mmol/L (5-15); BLOOD UREA NITROGEN 24 mg/dL (7-18); CARBON DIOXIDE 28 MMOL/L (21-32); CHLORIDE 102 MMOL/L (98-107); CREATININE 0.8 MG/DL (0.55-1.30); POTASSIUM 4.3 MMOL/L (3.5-5.1); SODIUM 140 MMOL/L (136-145)
[2019-04-17] MEDS ORDERED: ZINC SULFATE220 M1 GT (10:11)
[2019-04-17] MEDS ORDERED: NORCO 5-325 TA1 EACH ORAL (10:11)
[2019-04-17 10:16] LABS: ALANINE AMINOTRANSFERASE 40 U/L (12-78); ALBUMIN 2.5 G/DL (3.4-5.0); ALBUMIN/GLOBULIN RATIO 0.6 (1.0-2.7); ALKALINE PHOSPHATASE 87 U/L (46-116); ASPARTATE AMINO TRANSFERASE 35 U/L (15-37); BILIRUBIN,TOTAL 0.3 MG/DL (0.2-1.0); CKMB 6.3 NG/ML (0.0-3.6); CREATINE KINASE 869 U/L (26-308)
--- NOTE | 2019-04-17 10:16 | Diagnostic Imaging Report ---
EXAM: XR Chest, 1 View CLINICAL HISTORY: AMS TECHNIQUE: Frontal view of the chest. COMPARISON: Chest x-ray dated 04/05/19 FINDINGS: Lungs: Unremarkable. The lungs appear clear. No focal consolidation. Pleural space: Unremarkable. The costophrenic angles are sharp. No visible pneumothorax. Heart: Unremarkable. No cardiomegaly. Mediastinum: Unremarkable. Bones/joints: Unremarkable. Tubes, lines and devices: EKG leads overlie the thorax. Surgical clips overlie the left upper abdominal quadrant. IMPRESSION: No acute findings.
[2019-04-17] MEDS ORDERED: Piperacillin/Tazobactam 3.375 GM in NS 110 ML IVPB ONE (10:45)
[2019-04-17 11:10] VITALS: BP 127/73
--- NOTE | 2019-04-17 11:27 | NUR ---
ED Nurse Note: patient at no distress at this time rectal temp of 99.5
--- NOTE | 2019-04-17 12:41 | Emergency Room Report ---
History of Present Illness General Chief Complaint: Fever Source: Medical Record Present Illness HPI 39-year-old male presents ED for evaluation. Brought in by EMS from residential facility. Reported to have fever x1 day. Given Tylenol at facility. Patient has a anoxic brain injury. Nonverbal at baseline. Unable to provide any additional history at this time. No reported cough or shortness of breath. Patient recently admitted here for similar presentation. No signs of distress upon arrival. No other aggravating relieving factors. No other associated symptoms Allergies: Coded Allergies: No Known Allergies (Unverified , 08/20/18) Patient History Past Medical History: seizures, psych hx Past Surgical History: other - Gtube Pertinent Family History: none Social History: Denies: smoking, alcohol use, drug use Immunizations: UTD Reviewed Nursing Documentation: PMH: Agreed; PSxH: Agreed Nursing Documentation-PMH Past Medical History: No History, Except For Hx Cancer: No Hx Gastrointestinal Problems: Yes - G tube History Of Psychiatric Problem: Yes - Schizo Hx Neurological Problems: No Hx Cerebrovascular Accident: No Hx Seizures: Yes - Epilepsy Review of Systems All Other Systems: limited Physical Exam Vital Signs Date Time Temp Pulse Resp B/P (MAP) Pulse Ox O2 Delivery O2 Flow Rate FiO2 04/17/19 09:17 101.8 140 25 102/65 (77) 95 Room Air Sp02 EP Interpretation: reviewed, normal General Appearance: no apparent distress, other - nonverbal Head: normocephalic Eyes: bilateral eye normal inspection, bilateral eye PERRL ENT: normal ENT inspection Neck: normal inspection Respiratory: chest non-tender, lungs clear, normal breath sounds, speaking full sentences Cardiovascular #1: regular rate, rhythm, no edema Gastrointestinal: normal bowel sounds, non tender, soft, non-distended, no guarding, no rebound Rectal: deferred Genitourinary: no CVA tenderness Musculoskeletal: normal inspection Neurologic: other - nonverbal Psychiatric: other - nonverbal Skin: normal inspection Lymphatic: normal inspection Medical Decision Making Diagnostic Impression: Primary Impression: Anoxic brain injury Additional Impression: Sepsis Qualified Codes: A41.9 - Sepsis, unspecified organism ER Course Hospital Course 39 yo M presents to ED with fever, tacyhcardia Differential diagnoses include: Pneumonia, UTI, sepsis, dehydration, KS/ unstable angina Clinical course Patient placed on stretcher. On electronic device monitor with tachycardia . After initial history and physical, I ordered labs, IV fluids, EKG, chest x-ray, blood cultures, UA. patient given tylenol Labs - electrolytes ok, noted leukocytosis, Ua no bacteria. lactic > 2. EKG - sinus tachycardia no acute ischemic changes interpreted by me CXR - no acute process Patient admitted here recently. Had extensive work-up for fever of unknown origin. Cultures and urine cultures did not yield any specific growth. patient is DNR/Comfort Patient given broad-spectrum antibiotics here. Because of insurance patient will be transferred I feel this is a highly complex case requiring extensive working including EKG/ Rhythm strip, Xray/CT/US, Blood/urine lab work, repeat exams while in ED, and administration of strong opiates/narcotics for pain control, admission to hospital or close patient follow up. Diagnosis - anoxic brain injury, sepsis transferred In serious condition Labs Test 04/17/19 09:30 04/17/19 10:40 White Blood Count 18.5 K/UL (4.8-10.8) Red Blood Count 4.06 M/UL (4.70-6.10) Hemoglobin 11.8 G/DL (14.2-18.0) Hematocrit 35.2 % (42.0-52.0) Mean Corpuscular Volume 87 FL (80-99) Mean Corpuscular Hemoglobin 29.0 PG (27.0-31.0) Mean Corpuscular Hemoglobin Concent 33.4 G/DL (32.0-36.0) Red Cell Distribution Width 12.4 % (11.6-14.8) Platelet Count 770 K/UL (150-450) Mean Platelet Volume 5.9 FL (6.5-10.1) Neutrophils (%) (Auto) % (45.0-75.0) Lymphocytes (%) (Auto) % (20.0-45.0) Monocytes (%) (Auto) % (1.0-10.0) Eosinophils (%) (Auto) % (0.0-3.0) Basophils (%) (Auto) % (0.0-2.0) Differential Total Cells Counted 100 Neutrophils % (Manual) 71 % (45-75) Lymphocytes % (Manual) 21 % (20-45) Monocytes % (Manual) 8 % (1-10) Eosinophils % (Manual) 0 % (0-3) Basophils % (Manual) 0 % (0-2) Band Neutrophils 0 % (0-8) Platelet Estimate Increased Platelet Morphology Normal Red Blood Cell Morphology Normal Urine Color Yellow Urine Appearance Clear Urine pH 5 (4.5-8.0) Urine Specific [place] 1.010 (1.005-1.035) Urine Protein 1+ (NEGATIVE) Urine Glucose (UA) Negative (NEGATIVE) Urine Ketones Negative (NEGATIVE) Urine Blood 4+ (NEGATIVE) Urine Nitrite Negative (NEGATIVE) Urine Bilirubin Negative (NEGATIVE) Urine Urobilinogen Normal MG/DL (0.0-1.0) Urine Leukocyte Esterase 1+ (NEGATIVE) Urine RBC 5-10 /HPF (0 - 0) Urine WBC 0-2 /HPF (0 - 0) Urine Squamous Epithelial Cells Occasional /LPF Urine Bacteria Occasional /HPF (NONE) Sodium Level 140 MMOL/L (136-145) Potassium Level 4.3 MMOL/L (3.5-5.1) Chloride Level 102 MMOL/L (98-107) Carbon Dioxide Level 28 MMOL/L (21-32) Anion Gap 10 mmol/L (5-15) Blood Urea Nitrogen 24 mg/dL (7-18) Creatinine 0.8 MG/DL (0.55-1.30) Estimat Glomerular Filtration Rate > 60 mL/min (>60) Glucose Level 157 MG/DL (74-106) Lactic Acid Level 2.10 mmol/L (0.4-2.0) 1.60 mmol/L (0.4-2.0) Calcium Level 9.0 MG/DL (8.5-10.1) Total Bilirubin 0.3 MG/DL (0.2-1.0) Aspartate Amino Transf (AST/SGOT) 35 U/L (15-37) Alanine Aminotransferase (ALT/SGPT) 40 U/L (12-78) Alkaline Phosphatase 87 U/L (46-116) Total Creatine Kinase 869 U/L (26-308) Creatine Kinase MB 6.3 NG/ML (0.0-3.6) Creatine Kinase MB Relative Index 0.7 Troponin I 0.017 ng/mL (0.000-0.056) Pro-B-Type Natriuretic Peptide 184 pg/mL (0-125) Total Protein 6.9 G/DL (6.4-8.2) Albumin 2.5 G/DL (3.4-5.0) Globulin 4.4 g/dL Albumin/Globulin Ratio 0.6 (1.0-2.7) EKG Diagnostic Results Rate: tachycardiac Rhythm: NSR ST Segments: no acute changes ASA given to the pt in ED: No Rhythm Strip Diag. Results EP Interpretation: yes Rhythm: NSR, no PVC's, no ectopy Chest X-Ray Diagnostic Results Chest X-Ray Diagnostic Results : Chest X-Ray Ordered: Yes # of Views/Limited/Complete: 1 View Indication: Other Interpretation: no consolidation, no effusion, no pneumothorax, no acute cardiopulmonary disease Impression: No acute disease Electronically Signed by: Electronically signed by Eitan Lucas MD Last Vital Signs Date Time Temp Pulse Resp B/P (MAP) Pulse Ox O2 Delivery O2 Flow Rate FiO2 04/17/19 11:10 99.7 123 18 127/73 98 Room Air Status: improved Disposition: XFER [facility] Condition: Serious Referrals: Lenin Wyatt MD (PCP) Eitan Lucas MD Apr 17, 2019 12:41
[2019-04-17 13:04] VITALS: BP 123/73
--- NOTE | 2019-04-17 13:06 | NUR ---
TRANSFER TO Hospital Patient transferred to [facility]. patientappears at no distress at this tie. patient is beign transferred accompanied by family members and ambulance personnel. gave report to SKIP valadez
== END 2019-04-17 12:30 | disposition short-term general hospital (02) ==
LOC: EDBD 09:22 → EMR 10:21 → EDBEDREQ 11:13 → EMR 12:30
DX: A41.9 Sepsis, unspecified organism (principal); S06.890A Other specified intracranial injury without loss of consciousness, initial encounter; X58.XXXA Exposure to other specified factors, initial encounter; G40.909 Epilepsy, unspecified, not intractable, without status epilepticus; F20.9 Schizophrenia, unspecified; R00.0 Tachycardia, unspecified; D72.829 Elevated white blood cell count, unspecified
CPT/HCPCS: 36415; 71045; 80053; 81003; 82550; 82553; 83605; 83880; 84484; 85007; 85025; 87040; 93005; 96361; 96365; 99284; J2543